=== PATIENT | female | born 1975 | race Caucasian/White ===

== ENCOUNTER 2017-12-15 13:04 | Emergency (ER) | payer OTHER, SELFPAY ==
[2017-12-15 13:06] VITALS: BP 134/81; PULSE 93; RESP 16; TEMP 36.9; O2SAT 95; BMI 43.8
--- NOTE | 2017-12-15 13:21 | RAD_ITS ---
STUDY: X-RAY CHEST REASON FOR EXAM: Female, 42 years old. Chest pain. Shortness of breath. TECHNIQUE: PA and lateral views of the chest. COMPARISON: Comparison is made with prior study dated September 19, 2017. FINDINGS: EKG electrodes are seen. Stable elevation of the right hemidiaphragm. Mild increased markings in the right middle lobe suggestive of mild right basilar atelectasis. There is no demonstrated pleural abnormality. Normal size heart. Normal mediastinum and jessi. Normal visualized pulmonary arteries. Normal visualized aortic arch and descending thoracic aorta. Normal visualized thoracic spine. Normal visualized ribs, clavicles, and shoulders. There is no demonstrated abnormality of the visualized soft tissue structures of the upper abdomen. RAD/Chest PA and Lateral IMPRESSION: Increased linear markings in the right middle lobe suggestive of right basilar atelectasis. Electronically Signed: Santhosh Morse MD at 14:26 EST Tel [phone], Service support ,
--- NOTE | 2017-12-15 13:21 | EKG12_ITS ---
Test Reason : CP Blood Pressure : / mmHG Vent. Rate : 084 BPM Atrial Rate : 084 BPM P-R Int : 144 ms QRS Dur : 074 ms QT Int : 384 ms P-R-T Axes : 018 052 042 degrees QTc Int : 453 ms Normal sinus rhythm Normal ECG Confirmed by RINKU SYLVESTER MD ([id number]), editor dictionary GERSON CRUZ ([id number]) on 12/21/2017 3:47:29 PM Referred By: CELSO Confirmed By:RINKU SYLVESTER MD
[2017-12-15 13:40] LABS: Mucous, Urine 0 SEEN /hpf (<or=2+); Red Blood Cells-Urine 0 SEEN /hpf (0-5); White Blood Cells 0 SEEN /hpf (0-5)
[2017-12-15 13:42] LABS: Color, Urine Yellow (Yellow); Glucose, Dipstick Normal (Normal); Ketone-Dipstick Negative (Negative); Leukocyte Esterase-Dipstick Negative /ul (Negative); Nitrite-Dipstick Negative (Negative); Occult Blood-Urine Negative /ul (Negative); Protein-Dipstick Negative (Negative); Urine Bilirubin Dipstick Negative (Negative); Urine Clarity Clear (Clear); Urine Urobilinogen Normal (Normal)
[2017-12-15 13:47] LABS: Absolute Lymphocyte Count 1.83 X10^3/ul (0.83-4.51); Basophil# 0.02 X10^3/uL; Basophil% 0.3 % (0-1); Eosinophil# 0.16 X10^3/uL; Eosinophils% 2.5 % (0-5); Hematocrit 38.3 % (37-47); Hemoglobin 13.2 g/dl (12.0-15.0); Lymphocyte # 1.83 X10^3/ul (4.0); Lymphocyte % 28.8 % (19-41); Mean Corp Hgb Conc 34.5 g/gl (32-36); Mean Corpuscular Volume 89.9 fL (81-99); Mean Platelet Vol. 10.6 fl (6.2-12.0); Monocyte# 0.36 X10^3/uL; Monocyte% 5.7 % (0-10); Neutrophil # 3.99 X10^3/uL (2.7-7.7); Neutrophil % 62.7 % (47-70); Platelet Count 183 K/mm3 (150-450); RBC Distribution Width CV 11.9 % (11.6-14.6); RBC Distribution Width SD 37.9 fl (35.1-43.9); Red Blood Count 4.26 M/mm3 (4.2-5.4); White Blood Count 6.4 K/mm3 (4.4-11.0)
[2017-12-15 13:48] LABS: POSITIVE COUNT NO; POSITIVE DIFFERENTIAL NO; POSITIVE MORPHOLOGY NO
[2017-12-15 13:52] LABS: Bacteria RARE /hpf (None Seen); Squamous Epithelial Cells - UA 0-5 SEEN /hpf (5-10)
[2017-12-15 14:05] VITALS: PULSE 84; RESP 18; O2SAT 94
[2017-12-15 14:06] LABS: Anion Gap 8 (5-15); BUN 14 mg/dL (7-18); BUN/Creat Ratio 16.5 RATIO (10-20); Calcium,Total 8.7 mg/dL (8.5-10.1); Chloride 106 mmol/L (98-107); Creatinine, Serum 0.85 mg/dL (0.55-1.02); EST Glomerular Filtration Rate 78 mL/min (>60); Est Glom Filt Rate - Afr Amer 95 mL/min (>60); Estimated Creatinine Clearance 75.97 ml/min; Glucose 116 mg/dL (74-106); Potassium 3.7 mmol/L (3.5-5.1); Sodium Level 140 mmol/L (136-145)
[2017-12-15 14:08] VITALS: O2SAT 94
[2017-12-15 14:13] LABS: BNP,B-Type NATRIURETIC PEPTIDE 12.4 pg/mL (0-100)
[2017-12-15 14:15] LABS: D-Dimer Quantitative (DVT/PE) 0.67 FEU/ug/m (0.27-0.49)
--- NOTE | 2017-12-15 14:18 | CT_ITS ---
STUDY: CTA CHEST REASON FOR EXAM: Female, 42 years old. Shortness of breath. 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 RADIATION DOSAGE (If Supplied By Facility): CTDIvol = ( 15.06 ) mGy, DLP = ( 760.22 ) mGycm TECHNIQUE: The examination was performed with the intravenous administration of 100 ml of Isovue 370 contrast material. Post-processing of the angiographic images was performed, with multiplanar reformation and 3D reconstruction. Individualized dose optimization techniques were used for this CT. COMPARISON: None. FINDINGS: Normal enhancement of the main pulmonary artery and right and left pulmonary arteries. Normal enhancement of the bilateral peripheral pulmonary arteries. There is no demonstrated pulmonary embolism. Normal thoracic aorta and visualized great vessels. There is no demonstrated aortic dissection. Normal heart and pericardium. Normal mediastinum. Normal hilar regions. Normal visualized trachea and bronchi. The lungs are well expanded. Mild increased markings in the anterior aspect of the right middle lobe suggestive of a right middle lobe atelectasis. Normal pleura. Normal chest wall structures. Normal osseous structures. Normal visualized upper abdomen. CT/CTA Chest W/WO Contrast IMPRESSION: Mild increased markings in the anterior aspect of the right middle lobe as described suggesting atelectasis. No evidence of pulmonary emboli. Electronically Signed: Santhosh Morse MD at 15:33 EST Tel [phone], Service support ,
[2017-12-15] MEDS: Ipratropium/Albuterol Sulfate 3 ML AMPUL.NEB INHALATION (16:05)
[2017-12-15 16:06] VITALS: PULSE 74; RESP 13
[2017-12-15] MEDS: Ondansetron 4 MG/2 ML Vial IV (16:12)
[2017-12-15 16:34] VITALS: PULSE 79; RESP 17; O2SAT 96
--- NOTE | 2017-12-15 16:50 | ED.VISSUMM ---
- ER Visit Summary Date of Service: 12/15/17 Chief Complaint: Shortness of breath History of Present Illness: The patient is a 42 F with generalized malaise over the weekend. Yesterday she noted dyspnea on exertion and some mild chest tightness. She feels that her hands are swollen and she is retaining fluid. She also has some low back pain. Patient has a history significant for cardiomyopathy, reflux disease, PE, factor V Leiden, and [place]. Patient states she did have a cardiac cath but does not have any stents. She is not currently on anticoagulants. Physical Examination: Blood pressure is 134/81, temperature 98.5, heart rate 93, respiratory rate 16, pulse ox 95% on room air. Head neck examination is unremarkable. Heart is regular rate and rhythm. Lung sounds are clear. Abdomen is soft nontender. Lower external examination reveals no significant calf tenderness. Distal pulses are noted throughout. Test Results: Two-view chest x-ray reveals right basilar atelectasis. EKG is sinus at 84 with no sign of acute ischemia. CBC and chemistry studies are unremarkable. Urinalysis is normal. Troponin is less than 0.02. BNP is 12. D-dimer is mildly elevated at 0.67. CTA of the chest is obtained that shows atelectasis in the right middle lobe. There is no evidence of PE. Emergency Department Course and Treatment: Patient was given morphine and Zofran. She is also given a DuoNeb. Patient states that overall she still just feels blah. I believe her symptoms are secondary to a viral syndrome. I encouraged her to use Tylenol or ibuprofen. At this time her cardiac and pulmonary workup are negative and I do not believe she needs to be admitted for further evaluation this currently. Treatment Plan: [] Disposition: Discharge Impression: Viral syndrome This note was generated with [employer] dictation software. It may contain incorrect words, spelling, and punctuation that were not noted in review of the chart prior to signing ED Disposition - Plan for ED Patient: Disposition: Home or Assisted Living Chief Complaint: Shortness of Breath Instructions: ED Viral Syndrome Prescriptions: Ondansetron [Zofran Odt] 4 mg PO Q8H PRN PRN #10 tablet PRN Reason: Nausea Referrals: Horace Paniagua III, MD [Primary Care Provider] - 1-2 Weeks
--- NOTE | 2017-12-15 17:00 | ED.DEP ---
ED Disposition - Plan for ED Patient: Disposition: Home or Assisted Living Chief Complaint: Shortness of Breath Instructions: ED Viral Syndrome Prescriptions: Ondansetron [Zofran Odt] 4 mg PO Q8H PRN PRN #10 tablet PRN Reason: Nausea Referrals: Horace Paniagua III, MD [Primary Care Provider] - 1-2 Weeks
[2017-12-15 17:02] VITALS: BP 130/66; PULSE 81; RESP 19; O2SAT 93
[2017-12-15] MEDS: Ondansetron ODT 4 MG Tablet 8 MG PO (17:06)
== END 2017-12-15 17:07 | disposition home or self-care (01) ==
PROVIDERS: Emergency Provider Emergency Medicine; Family Provider Family Medicine; PCP Family Medicine
DX: B34.9 Viral infection, unspecified (principal); J98.11 Atelectasis; E66.9 Obesity, unspecified; K21.9 Gastro-esophageal reflux disease without esophagitis; I25.2 Old myocardial infarction; D68.51 Activated protein C resistance; Z87.891 Personal history of nicotine dependence; Z86.711 Personal history of pulmonary embolism
CPT/HCPCS: 71046; 71275; 80048; 81001; 83880; 84484; 85025; 85379; 93005; 94640; 96374; 96375; 99285; Q9967; J2405

== ENCOUNTER 2017-12-15 22:35 | Emergency (ER) | payer OTHER, SELFPAY ==
[2017-12-15 22:36] VITALS: BP 125/59; PULSE 94; RESP 15; TEMP 36.7; O2SAT 95; BMI 43.6
[2017-12-15 23:37] LABS: Bacteria 0 SEEN /hpf (None Seen); Mucous, Urine 0 SEEN /hpf (<or=2+); Red Blood Cells-Urine 0 SEEN /hpf (0-5); White Blood Cells 0 SEEN /hpf (0-5)
[2017-12-15 23:48] LABS: Color, Urine Yellow (Yellow); Glucose, Dipstick Normal (Normal); Ketone-Dipstick Negative (Negative); Leukocyte Esterase-Dipstick Negative /ul (Negative); Nitrite-Dipstick Negative (Negative); Occult Blood-Urine Negative /ul (Negative); Protein-Dipstick Negative (Negative); Urine Bilirubin Dipstick Negative (Negative); Urine Clarity Clear (Clear); Urine Urobilinogen Normal (Normal)
[2017-12-15 23:54] LABS: Squamous Epithelial Cells - UA 0-5 SEEN /hpf (5-10)
--- NOTE | 2017-12-15 23:58 | ED.VISSUMM ---
- ER Visit Summary Date of Service: 12/15/17 Chief Complaint: Right lower back pain near posterior iliac spine History of Present Illness: The patient is a 42 F who was seen earlier today and had a significant workup to evaluate her constellation of symptoms which included shortness of breath. She states she is no better. She states she is worse and now has right lower back pain. She does have history of nephrolithiasis one year ago. She denies any history of trauma. She denies rash. She denies bowel or bladder dysfunction. She denies saddle paresthesia or anesthesia. She denies foot drop when she walks. Denies thigh muscle weakness when he was up or down steps. She denies fever, chills night sweats. Denies weight gain or weight loss. She denies any ocular, visual auditory symptoms. She does complain of palpitations. She also complains of continued shortness of breath. She denies any abdominal pain or symptoms. She denies dysuria, frequency, urgency or hematuria. She denies myalgias or arthralgias. She denies paresthesia or weakness. She denies any allergic type symptoms. There is a past medical history of cardiomyopathy, pericarditis, nephrolithiasis, GERD and depression. Her dictated note from visit earlier today was read. She had a significant workup with no determined etiology. The kidneys are visualized and there is no evidence of hydronephrosis. Physical Examination: Vital signs are normal. She is afebrile. She is not hypoxic. BMI is 43.6. HEENT exam is unremarkable. Insert cardiopulmonary exam abdomen is soft nontender. There is no CVA tenderness noted. There is no pain to palpation of the dorsal or lumbar spinous process. Straight leg test is negative. Crossover test is negative. Patella and ankle reflexes are 2+ and symmetric. There is no clonus or Babinski sign noted. Sensation is intact. Motor strength is 5/5 in all major muscle groups lower extremity. Test Results: UA is negative Emergency Department Course and Treatment: Since she now has new symptom of low back pain and his history of nephrolithiasis a urinalysis was obtained. Prior documentation was reviewed as well as tests that were ordered. Treatment Plan: Home-going instructions for muscle skeletal low back pain without sciatica Disposition: Discharged to home in stable condition Impression: 1. Right lower back pain without sciatica 2. Persistent shortness of breath of unknown etiology 3. History of cardiomyopathy This note was generated with [employer] dictation software. It may contain incorrect words, spelling, and punctuation that were not noted in review of the chart prior to signing ED Disposition - Plan for ED Patient: Disposition: Home or Assisted Living Chief Complaint: General Illness Instructions: ED Neck Back Pain General Referrals: Horace Paniagua III, MD [Primary Care Provider] - 3-5 Days if not improving
[2017-12-16 00:17] VITALS: PULSE 76; RESP 16; O2SAT 98
== END 2017-12-16 00:18 | disposition home or self-care (01) ==
PROVIDERS: Emergency Provider Emergency Medicine; Family Provider Family Medicine; PCP Family Medicine
DX: M54.5 Low back pain (principal); R06.02 Shortness of breath; R00.2 Palpitations; E66.9 Obesity, unspecified; Z68.41 Body mass index [BMI] 40.0-44.9, adult; Z87.891 Personal history of nicotine dependence; Z87.442 Personal history of urinary calculi; F32.9 Major depressive disorder, single episode, unspecified
CPT/HCPCS: 81001; 99282

== ENCOUNTER → 2018-01-24 14:38 | Outpatient (CLI) | payer OTHER, SELFPAY ==
--- NOTE | 2018-01-24 14:39 | US_ITS ---
STUDY: ULTRASOUND TRANSVAGINAL CLINICAL: Female, 42 years old. Pelvic pain. Previous hysterectomy. TECHNIQUE: Transabdominal and Transvaginal COMPARISON: None. FINDINGS: Uterus is surgically absent. Normal right ovary, measuring 4.2 x 3.1 x 2.8 cm. There is a 2.6 cm right ovarian cyst. Normal left ovary, measuring 3.6 x 1.5 x 2.6 cm. There are multiple follicles without a dominant cyst. There is no free fluid in the pelvis. Polycystic ovary disease: No. US/Pelvic (Non ) IMPRESSION: Status post hysterectomy. 2.6 cm right ovarian cyst. Otherwise negative exam. Electronically Signed: Floyd Moncada MD at 22:58 EDT , Service support ,
--- NOTE | 2018-01-24 14:39 | US_ITS ---
STUDY: ULTRASOUND TRANSVAGINAL CLINICAL: Female, 42 years old. Pelvic pain. Previous hysterectomy. TECHNIQUE: Transabdominal and Transvaginal COMPARISON: None. FINDINGS: Uterus is surgically absent. Normal right ovary, measuring 4.2 x 3.1 x 2.8 cm. There is a 2.6 cm right ovarian cyst. Normal left ovary, measuring 3.6 x 1.5 x 2.6 cm. There are multiple follicles without a dominant cyst. There is no free fluid in the pelvis. Polycystic ovary disease: No. US/Transvaginal Non- IMPRESSION: Status post hysterectomy. 2.6 cm right ovarian cyst. Otherwise negative exam. Electronically Signed: Floyd Moncada MD at 22:58 EDT , Service support ,
== END ==
PROVIDERS: Family Provider Family Medicine; PCP Family Medicine; Visit Provider Nurse Practitioner Women's Health
DX: R10.2 Pelvic and perineal pain (principal); Z90.710 Acquired absence of both cervix and uterus
CPT/HCPCS: 76830; 76856; 93976

== ENCOUNTER → 2018-02-09 14:30 | Outpatient (CLI) | payer OTHER, SELFPAY ==
[2018-02-09 16:35] LABS: Prolactin 10.3 ng/mL; Thyroid Stim Hormone (TSH) 1.08 uIU/mL (0.358-3.74)
== END ==
PROVIDERS: Family Provider Family Medicine; PCP Family Medicine; Visit Provider Nurse Practitioner Women's Health
DX: R63.5 Abnormal weight gain (principal); O92.6 Galactorrhea
CPT/HCPCS: 36415; 84146; 84443

== ENCOUNTER 2018-05-28 13:30 | Emergency (ER) | payer OTHER, SELFPAY ==
[2018-05-28 13:31] VITALS: BP 131/72; PULSE 104; RESP 18; TEMP 36.6; O2SAT 96; BMI 42.9
--- NOTE | 2018-05-28 13:48 | ED.VISSUMM ---
- ER Visit Summary Date of Service: 05/28/18 Chief Complaint: Right arm pain History of Present Illness: The patient is a 43 F with right arm pain. It started 2 days ago. She has pain over the lateral part of her upper arm. She denies any injury or trauma to the area. She describes as an aching. She has also some mild pain in the neck. She has some mild swelling that she describes. Tylenol and ibuprofen are not helping. She has a history of factor V Leiden and PE but is not any anticoagulation at this time. Physical Examination: Vital signs reviewed. Neck exam reveals some mild right paraspinal tenderness. The right arm is tender diffusely from the shoulder down to the forearm. There is no swelling. It is warm to touch. She has 2+ radial pulses. Less than 2-second capillary refill. Her sensation is normal. Test Results: None performed Emergency Department Course and Treatment: Patient likely has a cervical radiculopathy. I have very low suspicion for an upper extremity DVT as she has no swelling. She has no tenderness on the inner part of the arm. I will treat her with prednisone and naproxen at home. She will follow-up with her PCP. Treatment Plan: [] Disposition: Discharge Impression: Cervical radiculopathy This note was generated with [employer] dictation software. It may contain incorrect words, spelling, and punctuation that were not noted in review of the chart prior to signing ED Disposition - Plan for ED Patient: Chief Complaint: Upper Extremity Injury Referrals: Horace Paniagua III, MD [Primary Care Provider] -
--- NOTE | 2018-05-28 13:50 | ED.DEP ---
ED Disposition - Plan for ED Patient: Disposition: Home or Assisted Living Chief Complaint: Upper Extremity Injury Instructions: ED Cervical Radiculopathy Prescriptions: Naproxen [Naprosyn] 500 mg PO BID PRN #20 tab Prednisone [Deltasone] 40 mg PO DAILY #10 tab Referrals: Horace Paniagua III, MD [Primary Care Provider] -
== END 2018-05-28 14:40 | disposition home or self-care (01) ==
PROVIDERS: Emergency Provider Emergency Medicine; Family Provider Family Medicine; PCP Family Medicine
DX: M54.12 Radiculopathy, cervical region (principal); D68.51 Activated protein C resistance; Z86.711 Personal history of pulmonary embolism; I10 Essential (primary) hypertension
CPT/HCPCS: 99282

== ENCOUNTER 2018-06-28 18:27 | Emergency (ER) | payer OTHER, SELFPAY ==
[2018-06-28 18:28] VITALS: BP 132/100; PULSE 88; RESP 16; TEMP 36.9; O2SAT 98; BMI 45.2
--- NOTE | 2018-06-28 19:17 | ED.VISSUMM ---
- ER Visit Summary Date of Service: 06/28/18 Chief Complaint: Heartburn/dizziness History of Present Illness: The patient is a 43 F with heartburn. She states for the past 2 weeks she has been having a lot of heartburn. Worse at night when she lays down. She feels a weird taste in the back of her throat. She has been on daily Prilosec for many years. She tried Pepto-Bismol but it did not help. She feels bloated and nauseous. Denies any sharp abdominal pains. She also feels dizzy. She has a history of vertigo and this feels similar. She has not taken anything for this. Denies any falls. No fevers or any other recent illnesses. Physical Examination: Vital signs reviewed. HEENT exam unremarkable. Heart is regular rate and rhythm without murmurs. Lungs are clear to auscultation. Abdomen is soft with tenderness in the epigastric region extremities reveal no edema. Skin exam normal. Neurologic exam normal. Test Results: Labs are normal except for glucose of 129 Emergency Department Course and Treatment: I initially treated the patient with a GI cocktail and meclizine. She did not feel better so she was given p.o. Valium IV Phenergan. At this point I feel that her symptoms are likely due to GERD as well as her vertigo which she has had previously. I will give her some Valium for home. I will also add Carafate to her Prilosec. She will follow-up with her primary care physician Treatment Plan: [] Disposition: Discharge Impression: GERD, vertigo This note was generated with [employer] dictation software. It may contain incorrect words, spelling, and punctuation that were not noted in review of the chart prior to signing ED Disposition - Plan for ED Patient: Disposition: Home or Assisted Living Chief Complaint: Dizziness Instructions: ED BPV Vertigo Prescriptions: proMETHazine tablet [Phenergan] 25 mg PO Q6H PRN PRN #10 tab PRN Reason: Nausea Diazepam [Valium] 2 mg PO TID PRN PRN #10 tab PRN Reason: Vertigo Sucralfate [Carafate] 1 gm PO 4X/DAY #60 tab Referrals: Horace Paniagua III, MD [Primary Care Provider] -
[2018-06-28] MEDS: Meclizine HCl 25 MG Tablet PO (19:18)
[2018-06-28] MEDS: Mag Hydrox/Al Hydrox/Simeth 30 ML UDC PO (19:18)
[2018-06-28] MEDS: Ondansetron ODT 4 MG Tablet 8 MG PO (19:46)
[2018-06-28 20:31] LABS: Absolute Neutrophil Count 3.7 X10^3/uL (2.0-7.7); Basophil# 0.02 X10^3/uL; Basophil% 0.3 % (0-1); Eosinophil# 0.14 X10^3/uL; Eosinophils% 2.2 % (0-5); Hematocrit 40.7 % (37-47); Hemoglobin 13.8 g/dl (12.0-15.0); Lymphocyte % 33.4 % (19-41); Mean Corp Hgb Conc 33.9 g/gl (32-36); Mean Corpuscular Hgb 31.2 pg (27.0-32.0); Mean Corpuscular Volume 92.1 fL (81-99); Mean Platelet Vol. 10.3 fl (6.2-12.0); Monocyte# 0.35 X10^3/uL; Monocyte% 5.6 % (0-10); Neutrophil # 3.67 X10^3/uL (2.7-7.7); Neutrophil % 58.3 % (47-70); POSITIVE COUNT NO; POSITIVE DIFFERENTIAL NO; POSITIVE MORPHOLOGY NO; Platelet Count 180 K/mm3 (150-450); RBC Distribution Width CV 12.2 % (11.6-14.6); RBC Distribution Width SD 41.3 fl (35.1-43.9); Red Blood Count 4.42 M/mm3 (4.2-5.4); White Blood Count 6.3 K/mm3 (4.4-11.0)
[2018-06-28 20:59] LABS: ALB/GLOB Ratio 0.8 RATIO (0.9-2.4); AST(SGOT) 21 U/L (15-37); Alanine Aminotransfer ALT/SGPT 40 U/L (13-56); Albumin, Serum 3.1 g/dL (3.2-5.0); Alkaline Phosphatase 57 U/L (45-117); Anion Gap 7 (5-15); BUN 10 mg/dL (7-18); BUN/Creat Ratio 11.9 RATIO (10-20); Calcium,Total 8.7 mg/dL (8.5-10.1); Chloride 105 mmol/L (98-107); Creatinine, Serum 0.84 mg/dL (0.55-1.02); EST Glomerular Filtration Rate 79 mL/min (>60); Est Glom Filt Rate - Afr Amer 96 mL/min (>60); Estimated Creatinine Clearance 76.11 ml/min; Globulin 3.8 g/dL (2.2-4.2); Glucose 129 mg/dL (74-106); Lipase 323 U/L (73-393); Potassium 4.1 mmol/L (3.5-5.1); Protein, Total 6.9 g/dL (6.4-8.2); Sodium Level 139 mmol/L (136-145)
--- NOTE | 2018-06-28 21:02 | ED.RN ---
DR PERALTA NOTIFIED PT REQUESTING SOMETHING FOR NAUSEA
[2018-06-28] MEDS: 0.9% Normal Saline 1,000 ML 999 ML IV (21:11)
[2018-06-28] MEDS: proMETHazine 25 MG/ML Syringe 12.5 MG IV (21:12)
[2018-06-28] MEDS: diazePAM 5 MG Tablet PO (21:12)
--- NOTE | 2018-06-28 21:22 | ED.DEP ---
ED Disposition - Plan for ED Patient: Disposition: Home or Assisted Living Chief Complaint: Dizziness Instructions: ED BPV Vertigo Prescriptions: proMETHazine tablet [Phenergan] 25 mg PO Q6H PRN PRN #10 tab PRN Reason: Nausea Diazepam [Valium] 2 mg PO TID PRN PRN #10 tab PRN Reason: Vertigo Sucralfate [Carafate] 1 gm PO 4X/DAY #60 tab Referrals: Horace Paniagua III, MD [Primary Care Provider] -
[2018-06-28 22:02] VITALS: BP 114/79; PULSE 83; RESP 16; O2SAT 96
== END 2018-06-28 22:03 | disposition home or self-care (01) ==
PROVIDERS: Emergency Provider Emergency Medicine; Family Provider Family Medicine; PCP Family Medicine
DX: K21.9 Gastro-esophageal reflux disease without esophagitis (principal); R42 Dizziness and giddiness
CPT/HCPCS: 80053; 83690; 85025; 96361; 96374; 99284; J7030; A4216

== ENCOUNTER 2018-07-18 20:19 | Emergency (ER) | payer OTHER, SELFPAY ==
[2018-07-18 20:20] VITALS: BP 153/92; PULSE 97; RESP 14; TEMP 36.4; O2SAT 98; BMI 45.9
--- NOTE | 2018-07-18 20:25 | EKG12_ITS ---
Test Reason : DIZZINESS Blood Pressure : / mmHG Vent. Rate : 086 BPM Atrial Rate : 086 BPM P-R Int : 138 ms QRS Dur : 072 ms QT Int : 378 ms P-R-T Axes : 027 057 056 degrees QTc Int : 452 ms Normal sinus rhythm Normal ECG Confirmed by HIGINIO ROCHA, RINKU ([id number]), scientific editor GERSON CRUZ ([id number]) on 07/25/2018 3:39:07 PM Referred By: DESIRE Confirmed By:RINKU SYLVESTER MD
[2018-07-18 20:39] VITALS: O2SAT 97
[2018-07-18 20:56] LABS: Absolute Lymphocyte Count 2.02 X10^3/ul (0.83-4.51); Absolute Neutrophil Count 3.5 X10^3/uL (2.0-7.7); Basophil# 0.02 X10^3/uL; Basophil% 0.3 % (0-1); Eosinophil# 0.15 X10^3/uL; Eosinophils% 2.5 % (0-5); Hematocrit 38.9 % (37-47); Hemoglobin 13.2 g/dl (12.0-15.0); Lymphocyte # 2.02 X10^3/ul (4.0); Lymphocyte % 33.6 % (19-41); Mean Corp Hgb Conc 33.9 g/gl (32-36); Mean Corpuscular Hgb 31.1 pg (27.0-32.0); Mean Corpuscular Volume 91.5 fL (81-99); Mean Platelet Vol. 10.5 fl (6.2-12.0); Monocyte# 0.33 X10^3/uL; Monocyte% 5.5 % (0-10); Neutrophil # 3.48 X10^3/uL (2.7-7.7); Neutrophil % 57.9 % (47-70); POSITIVE COUNT NO; POSITIVE DIFFERENTIAL NO; POSITIVE MORPHOLOGY NO; Platelet Count 183 K/mm3 (150-450); RBC Distribution Width CV 12.2 % (11.6-14.6); RBC Distribution Width SD 40.6 fl (35.1-43.9); Red Blood Count 4.25 M/mm3 (4.2-5.4)
[2018-07-18 21:03] LABS: International Normalized Ratio 0.8; Prothrombin Time (Protime)PT. 11.4 SECONDS (11.7-14.9)
[2018-07-18 21:04] LABS: Partial Thromboplast Time 22.5 Seconds (24.1-36.2)
[2018-07-18] MEDS: 0.9% Normal Saline 1,000 ML 50 ML IV (21:04)
[2018-07-18 21:09] LABS: Anion Gap 7 (5-15); BUN 11 mg/dL (7-18); BUN/Creat Ratio 13.2 RATIO (10-20); Calcium,Total 8.9 mg/dL (8.5-10.1); Chloride 102 mmol/L (98-107); Creatinine, Serum 0.83 mg/dL (0.55-1.02); EST Glomerular Filtration Rate 80 mL/min (>60); Est Glom Filt Rate - Afr Amer 97 mL/min (>60); Estimated Creatinine Clearance 77.02 ml/min; Glucose 150 mg/dL (74-106); Potassium 3.9 mmol/L (3.5-5.1); Sodium Level 140 mmol/L (136-145)
--- NOTE | 2018-07-18 21:11 | RAD_ITS ---
STUDY: X-RAY CHEST REASON FOR EXAM: Female, 43 years old. Dizzy, heartburn. TECHNIQUE: PA and lateral views of the chest. COMPARISON: The very 06/06/2018 FINDINGS: The lungs are clear and expanded. There is no demonstrated pleural abnormality. Normal size heart. Normal mediastinum and jessi. Normal visualized pulmonary arteries. Normal visualized aortic arch and descending thoracic aorta. Normal visualized thoracic spine. Normal visualized ribs, clavicles, and shoulders. There is no demonstrated abnormality of the visualized soft tissue structures of the upper abdomen. RAD/Chest PA and Lateral IMPRESSION: No acute cardiopulmonary process. Electronically Signed: Camryn Grey MD at 21:28 EDT Tel , Service support ,
--- NOTE | 2018-07-18 21:40 | CT_ITS ---
STUDY: CT BRAIN WITHOUT CONTRAST REASON FOR EXAM: Female, 43 years old. Dizziness. RADIATION DOSAGE (If Supplied By Facility): CTDIvol = ( 44.99 ) mGy, DLP = ( 745.49 ) mGycm TECHNIQUE: Transaxial CT imaging of the brain was performed without administration of intravenous contrast material. Individualized dose optimization techniques were used for this CT. COMPARISON: September 19, 2017 FINDINGS: Normal soft tissue structures. Normal calvarium. Normal size ventricles and extra-axial spaces for the patient's age. Normal white matter tracts of the cerebral hemispheres. Normal basal ganglia and thalami. Normal brainstem. Normal cerebellum. There is no intracranial hemorrhage. There are no findings of an acute ischemic infarction. There is opacification of the ethmoid, sphenoid and visualized maxillary sinuses. CT/Brain/Head without Contrast IMPRESSION: No acute intracranial process. Opacification of the ethmoid, sphenoid and visualized maxillary sinuses consistent with a history of sinusitis. Electronically Signed: Camryn Grey MD at 22:05 EDT Tel , Service support ,
[2018-07-18] MEDS: 0.9% Normal Saline 1,000 ML 150 ML IV (21:59)
[2018-07-18] MEDS: Ketorolac 30 MG/ML Syringe IV (21:59)
[2018-07-18] MEDS: Ondansetron 4 MG/2 ML Vial IV ×2 (21:59→23:05)
[2018-07-18 22:33] VITALS: PULSE 87; RESP 17; O2SAT 95
[2018-07-18] MEDS: Morphine 4 MG/ML Syringe IV (23:05)
--- NOTE | 2018-07-18 23:09 | ED.VISSUMM ---
- ER Visit Summary Date of Service: 07/18/18 Chief Complaint: Dizzy, vertigo History of Present Illness: The patient is a 43 F with vertigo for the past 8 days. She has had vertigo in the past. She was seen by her PCP and is currently on Antivert 12.5 mg every 6 hours without improvement. Patient noted ringing in her ear that started 3 days ago. She also complaining of a headache which she describes as head pressure. She also reports recent GI issues. She reports nausea, diarrhea, and occasional vomiting. She is scheduled to see Dr. Stark tomorrow to schedule scopes to deal with this. Physical Examination: Blood pressure is 153/92, temperature 97.6, heart rate 97, respiratory rate 14, pulse ox 97% on room air. Patient is lying in a darkened room in no acute distress. Head neck examination reveals moist mucous membranes. No significant rhinorrhea. Heart is regular rate and rhythm. Lung sounds are clear. Abdomen is soft nontender. Neuro exam reveals no focal deficits. Test Results: EKG is sinus 86 with no sign of acute ischemia. CBC and chemistry studies significant only for glucose of 150. Coags normal. CT head shows no acute process. There is opacification of the ethmoid, sphenoid, and maxillary sinuses consistent with sinusitis. Emergency Department Course and Treatment: Patient was initially given Toradol, Zofran, and IV fluids followed by dose of morphine and Zofran. Test results were discussed with patient and family at bedside. I discussed the possibility of M?ni?re's disease as she now has the significant ringing in her left ear. I recommended follow-up with ENT for this and have given her a handout on M?ni?re's disease to review. She will be placed on doxycycline for sinusitis as this may be playing a role in her symptoms as well. I did also discuss with her increasing her dose of Antivert at home to 25-50 mg rather than a 12.5 that she is taking to see if she gets better improvement in her symptoms. She voices understanding and agreement. She is given first dose of doxycycline here and a prescription for the same. She is given ENT referral for follow-up. Treatment Plan: [] Disposition: Discharge Impression: 1. Sinusitis 2. Vertigo with concern for M?ni?re's disease This note was generated with Dragon dictation software. It may contain incorrect words, spelling, and punctuation that were not noted in review of the chart prior to signing ED Disposition - Plan for ED Patient: Disposition: Home or Assisted Living Chief Complaint: Dizziness Instructions: ED Sinusitis Abx Tx, ED Vertigo Unspecified Prescriptions: Doxycycline 100 mg PO BID #20 capsule Referrals: Jean Marie Palafox MD [STAFF PHYSICIAN] - Horace Paniagua III, MD [Primary Care Provider] - Jose Salmeron MD [STAFF PHYSICIAN] -
--- NOTE | 2018-07-18 23:17 | ED.DEP ---
ED Disposition - Plan for ED Patient: Disposition: Home or Assisted Living Chief Complaint: Dizziness Instructions: ED Vertigo Unspecified, ED Sinusitis Abx Tx Prescriptions: Doxycycline 100 mg PO BID #20 capsule Referrals: Jose Salmeron MD [STAFF PHYSICIAN] - Jean Marie Palafox MD [STAFF PHYSICIAN] - Horace Paniagua III, MD [Primary Care Provider] -
[2018-07-18 23:20] VITALS: BP 144/75; PULSE 85; RESP 17; O2SAT 99
[2018-07-18] MEDS: Doxycycline 100 MG CAPSULE PO (23:22)
== END 2018-07-18 23:26 | disposition home or self-care (01) ==
PROVIDERS: Emergency Provider Emergency Medicine; Family Provider Family Medicine; PCP Family Medicine
DX: J32.9 Chronic sinusitis, unspecified (principal); R42 Dizziness and giddiness; R51 Headache; R11.2 Nausea with vomiting, unspecified; R19.7 Diarrhea, unspecified; K21.9 Gastro-esophageal reflux disease without esophagitis; J45.909 Unspecified asthma, uncomplicated; I10 Essential (primary) hypertension; G47.33 Obstructive sleep apnea (adult) (pediatric); I25.2 Old myocardial infarction; Z87.891 Personal history of nicotine dependence
CPT/HCPCS: 70450; 71046; 80048; 85025; 85610; 85730; 93005; 96361; 96374; 96375; 96376; 99285; J7040; A4216; J2405

== ENCOUNTER 2018-08-04 11:16 | Day surgery (SDC) | payer OTHER, SELFPAY ==
--- NOTE | 2018-08-04 | GASB_PTH ---
PATIENT: CHASTITY NUNEZ LOC: EN U#:[id number] AGE/SX: 43/F ROOM: RE08/04/[address]: Dr. Demarco Paniagua MD : [id number] BED: DIS: 08/04/2018 SPEC #: [id number] RECD: 08/04/18 14:43 STATUS: LEYLA PEGGY #: [id number] SHYAM: 08/04/18 00:[address]: Demarco Paniagua DEPT: SURGICAL PATHOLOGY RECD BY: Eladio Cornell ENTERED: 08/04/18 14:43 SP TYPE: Gastric Bx OTHR DR: Dr. Horace Paniagua III, MD Tissues: A - Gastric mucous membrane B - Esophageal mucous membrane C - Esophageal mucous membrane D - COLON BIOPSY E - Rectum, NOS Procedures: Special Stain Group II Surgery Specimen Level IV Alcian Blue/PAS (control) HEADER OPERATION: Colonoscopy, [place] [place] DIAGNOSIS: Gastroesophageal reflux, diarrhea, periumbilical abdominal pain TISSUE SUBMITTED: A - Antrum biopsy for H. pylori and path, B - Distal esophageal biopsy, C - Mid esophagus biopsy, D - Random colon biopsies, E - Biopsy of proximal rectum polyp MICROSCOPIC DIAGNOSIS A. Antrum biopsy: Mild gastritis. See microscopic description and comment. B. Distal esophageal biopsy: Fragments of gastroesophageal mucosa with chronic inflammation. Intestinal metaplasia (goblet cell metaplasia) is not identified. See comment. C. Mid esophagus, biopsy: Fragments of squamous epithelium with mild chronic inflammation. D. Colon, random biopsy: Fragments of colonic mucosa, no pathologic diagnosis. E. Proximal rectum polyp, biopsy: Fragments of hyperplastic polyp. SJ:tory 08/05/18 COMMENT A. The results of immunohistochemistry for Helicobacter pylori will be reported separately ([id number]). B. Alcian blue/PAS stain with matched control is used in the evaluation of the specimen. MICROSCOPIC DESCRIPTION Slides are reviewed. A. The specimen shows fragments of gastric mucosa with chronic inflammatory cell infiltrates in the lamina propria consisting of lymphocytes and plasma cells, consistent with mild chronic gastritis. GROSS DESCRIPTION A - Received in fixative is one container labeled with the patient's name and designated antral biopsy. The specimen consists of one irregular fragment of light moore soft tissue that measures 0.5 x 0.2 x 0.1 cm. The specimen is totally submitted in one cassette. B - Received in fixative is one container labeled with the patient's name and designated distal esophagus biopsy. The specimen consists of multiple irregular fragments of light moore soft tissue that in aggregate measure 0.8 x 0.3 x 0.1 cm. The specimen is totally submitted in one cassette. C - Received in fixative is one container labeled with the patient's name and designated mid esophagus biopsy. The specimen consists of two irregular fragments of light moore soft tissue that in aggregate measure 0.6 x 0.2 x 0.1 cm. The specimen is totally submitted in one cassette. D - Received in fixative is one container labeled with the patient's name and designated random colonic biopsy. The specimen consists of multiple irregular fragments of light moore soft tissue that in aggregate measure 1 x 0.6 x 0.1 cm. The specimen is totally submitted in one cassette. E - Received in fixative is one container labeled with the patient's name and designated biopsy of proximal rectum. The specimen consists of two irregular fragments of light moore soft tissue that in aggregate measure 0.6 x 0.3 x 0.1 cm. The specimen is totally submitted in one cassette. / SCOTTY:tory 08/04/18 TC:3 CPT: 38535 x5, 61038
--- NOTE | 2018-08-04 | IMM_PTH ---
PATIENT: CHASTITY NUNEZ LOC: EN U#:[id number] AGE/SX: 43/F ROOM: RE08/04/[address]: Dr. Demarco Paniagua MD : 1975 BED: DIS: 08/04/2018 SPEC #: [id number] RECD: 08/04/18 15:25 STATUS: LEYLA PEGGY #: [id number] SHYAM: 08/04/18 00:[address]: Demarco Paniagua DEPT: IMMUNOHISTOCHEMISTRY RECD BY: Patsy Otoole ENTERED: 08/04/18 15:26 SP TYPE: IMMUNO OTHR DR: Dr. Horace Paniagua III, MD Tissues: A - Stomach, NOS Procedures: H Pylori (initial) [facility]YSICIAN [facility] [address] [address] SPECIMEN INFORMATION: Tissue Source: A - Antrum biopsy Clinical Info: Gastroesophageal reflux, diarrhea, periumbilical abdominal pain Specimen Number: [id number] CPT code: 53898 METHODOLOGY: Deparaffinized sections of prefer/formalin-fixed tissue or PAP/DQ stained slides are incubated with monoclonal/polyclonal antibodies/oligonucleotide probes. Localization is made via biotin free immunoperoxidase method. Appropriate controls are performed and reacted as expected. Results on target cell population are indicated in the following table: RESULTS: ANTIBODY / CLONE RESULT Block A H Pylori (polyclonal) negative These tests were developed and their performance characteristics determined by [facility]. They may not have been cleared or approved by the U.S. Food and Drug Administration. The FDA has determined that such clearance or approval is not necessary. INTERPRETATION: A. Antrum, biopsy: Negative for Helicobacter pylori organisms. SJ:tory 08/05/18
[2018-08-04 11:36] VITALS: BP 128/87; PULSE 81; RESP 16; TEMP 36.8; O2SAT 95; BMI 45.3
[2018-08-04 13:10] VITALS: BP 128/87; BP 142/79; PULSE 86; RESP 15; TEMP 36.6; O2SAT 97
--- NOTE | 2018-08-04 13:11 | OP.ENDO_ITS ---
Patient Name: Leslie De León Procedure Date: 08/04/2018 12:27 PM Date of : 1975 Age: 43 Procedure: Upper GI endoscopy Indications: Dysphagia, Suspected esophageal reflux Providers: Demarco Paniagua MD Medicines: See the Anesthesia note for documentation of the administered medications Complications: No immediate complications. Procedure: Pre-Anesthesia Assessment: - Prior to the procedure, a History and Physical was performed, and patient medications and allergies were reviewed. The patient's tolerance of previous anesthesia was also reviewed. The risks and benefits of the procedure and the sedation options and risks were discussed with the patient. All questions were answered, and informed consent was obtained. Prior Anticoagulants: The patient has taken no previous anticoagulant or antiplatelet agents. ASA Grade Assessment: II - A patient with mild systemic disease. After reviewing the risks and benefits, the patient was deemed in satisfactory condition to undergo the procedure. After obtaining informed consent, the endoscope was passed under direct vision. Throughout the procedure, the patient's blood pressure, pulse, and oxygen saturations were monitored continuously. The gastroscope was introduced through the mouth, and advanced to the second part of duodenum. The upper GI endoscopy was accomplished without difficulty. The patient tolerated the procedure well. Scope In: 12:41:08 PM Scope Out: 12:49:18 PM Total Procedure Duration Time 0 hours 8 minutes 10 seconds Findings: LA Grade A (one or more mucosal breaks less than 5 mm, not extending between tops of 2 mucosal folds) esophagitis with no bleeding was found 37 cm from the incisors. Biopsies were taken with a cold forceps for histology. A small hiatal hernia was present. The Z-line was irregular and was found 37 cm from the incisors. Diffuse moderately erythematous mucosa without bleeding was found in the gastric antrum. Biopsies were taken with a cold forceps for histology. The examined duodenum was normal. Impression: - LA Grade A reflux esophagitis. Biopsied. Mid esophageal biopsies obtained looking for eosinophilic esophagitis - Small hiatal hernia. - Z-line irregular, 37 cm from the incisors. - Erythematous mucosa in the antrum. Biopsied. - Normal examined duodenum. Recommendation: - Telephone my office for pathology results in 1 week. - Continue present medications. Procedure Code(s): --- Professional --- 61437, Esophagogastroduodenoscopy, flexible, transoral; with biopsy, single or multiple Diagnosis Code(s): --- Professional --- K21.0, Gastro-esophageal reflux disease with esophagitis K44.9, Diaphragmatic hernia without obstruction or gangrene K22.8, Other specified diseases of esophagus K31.89, Other diseases of stomach and duodenum R13.10, Dysphagia, unspecified CPT copyright 2017 [employer]. All rights reserved. The codes documented in this report are preliminary and upon poll watcher review may be revised to meet current compliance requirements. Demarco Paniagua MD 08/04/2018 1:10:44 PM This report has been signed electronically. Number of Addenda: 0 Note Initiated On: 08/04/2018 12:27 PM
--- NOTE | 2018-08-04 13:14 | OP.ENDO_ITS ---
Patient Name: Leslie De León Procedure Date: 08/04/2018 12:51 PM Date of : 1975 Age: 43 Procedure: Colonoscopy Indications: Chronic diarrhea Providers: Demarco Paniagua MD Medicines: See the Anesthesia note for documentation of the administered medications Patient Profile: Last Colonoscopy: none. The patient's first colonoscopy is today. Complications: No immediate complications. Procedure: Pre-Anesthesia Assessment: - Prior to the procedure, a History and Physical was performed, and patient medications and allergies were reviewed. The patient's tolerance of previous anesthesia was also reviewed. The risks and benefits of the procedure and the sedation options and risks were discussed with the patient. All questions were answered, and informed consent was obtained. Prior Anticoagulants: The patient has taken no previous anticoagulant or antiplatelet agents. ASA Grade Assessment: II - A patient with mild systemic disease. After reviewing the risks and benefits, the patient was deemed in satisfactory condition to undergo the procedure. After I obtained informed consent, the scope was passed under direct vision. Throughout the procedure, the patient's blood pressure, pulse, and oxygen saturations were monitored continuously. The Colonoscope was introduced through the anus and advanced to the cecum, identified by appendiceal orifice and ileocecal valve. The colonoscopy was performed without difficulty. The patient tolerated the procedure well. The quality of the bowel preparation was good. The ileocecal valve was photographed. Scope In: 12:53:34 PM Scope Withdrawal Time 0 hours 5 minutes 25 seconds Scope Out: 1:04:55 PM Total Procedure Duration Time 0 hours 11 minutes 21 seconds Findings: The perianal and digital rectal examinations were normal. Scattered diverticula were found in the sigmoid colon. Biopsies for histology were taken with a cold forceps from the entire colon for evaluation of microscopic colitis. The exam was otherwise without abnormality. A 4 mm polyp was found in the rectum. The polyp was sessile. The polyp was removed with a cold biopsy forceps. Resection and retrieval were complete. Impression: - Diverticulosis in the sigmoid colon. Biopsied. - The examination was otherwise normal. Recommendation: - Discharge patient to home. - Resume previous diet. - Continue present medications. - Telephone my office for pathology results in 1 week. - Repeat colonoscopy in 10 years for screening purposes. Demarco Paniagua MD 08/04/2018 1:14:34 PM This report has been signed electronically. Number of Addenda: 0 Note Initiated On: 08/04/2018 12:51 PM
[2018-08-04 13:15] VITALS: BP 128/87; BP 138/76; PULSE 80; RESP 16; O2SAT 96
[2018-08-04 13:20] VITALS: BP 128/87; BP 133/77; PULSE 80; RESP 16; O2SAT 97
[2018-08-04 13:24] VITALS: BP 128/87; BP 142/78; PULSE 74; RESP 16; TEMP 36.6; O2SAT 95
[2018-08-04 13:37] VITALS: BP 128/87
== END 2018-08-04 13:39 | disposition home or self-care (01) ==
LOC: EN 11:17 → AC 11:21
PROVIDERS: Family Provider Family Medicine; PCP Family Medicine; Referring Provider Surgery; Visit Provider Surgery
PROC: 0DJD8ZZ Inspection of Lower Intestinal Tract, Via Natural or Artificial Opening Endoscopic (ICD-10-PCS; CPT 45378; principal; 2018-08-04 12:10)
DX: K29.70 Gastritis, unspecified, without bleeding (principal); K62.1 Rectal polyp; K57.30 Diverticulosis of large intestine without perforation or abscess without bleeding; R13.10 Dysphagia, unspecified; K21.0 Gastro-esophageal reflux disease with esophagitis; K44.9 Diaphragmatic hernia without obstruction or gangrene; K31.89 Other diseases of stomach and duodenum; K22.8 Other specified diseases of esophagus; Z87.891 Personal history of nicotine dependence; D68.51 Activated protein C resistance; I10 Essential (primary) hypertension; I25.2 Old myocardial infarction; F32.9 Major depressive disorder, single episode, unspecified; F41.9 Anxiety disorder, unspecified; J45.909 Unspecified asthma, uncomplicated
CPT/HCPCS: 43239; 45380; 88305; 88313; 88342; J7120

== ENCOUNTER → 2018-09-14 15:41 | Outpatient (CLI) | payer OTHER, SELFPAY ==
[2018-09-14 16:27] LABS: D-Dimer Quantitative (DVT/PE) < 0.27 FEU/ug/m (0.27-0.49)
--- OUTSIDE RECORDS SUMMARY | 2018-11-10 02:06 | XMS RPT_ITS ---
:1975 Author Organization [place] Support Name Relationship Address Phone SARTHAKAGATA Unavailable [address] + [place] [address] NATIONAL RED CROSS Unavailable [address] + [place] [address] AURY BYRD Unavailable [address] + [place] [address] AGATA DE LEÓN Unavailable [address] + [place] [address] NATIONAL [place] Unavailable [address] + [place] [address] AURY BYRD Unavailable [address] + [place] [address] AGATA DE LEÓN Unavailable [address] + [place] [phone] NATIONAL [place]OSS Unavailable [address] + [place] [address] AURY BYRD Unavailable [address] + [place] [address] AGATA DE LEÓN Unavailable [address] + [place] [address] NATIONAL [place] CROSS Unavailable [address] + [place] [address] AURY BYRD Unavailable [address] + [place] [address] AGATA DE LEÓN Unavailable [address] + [place] [phone] [place] [address] RED CROSS Unavailable [address] + [place] [address] AURY BYRD Unavailable [address] + [place] [address] AGATA DE LEÓN Unavailable [address] + [place], [place] [phone] [place] [address] RED CROSS Unavailable [address] + [place] [address] AURY BYRD Unavailable [address] + [place] [address] AGATA DE LEÓN Unavailable [address] + [place] [phone] [place] [address] RED CROSS Unavailable [address] + [place] [address] AURY BYRD Unavailable [address] + [place] [address] AGATA DE LEÓN Unavailable [address] + [place] [phone] [place] [address] RED CROSS Unavailable [address] + [place] [address] AURY BYRD Unavailable [address] + [place] [address] NOT GIVEN Unavailable Unavailable Unavailable [place] AGATA DE LEÓN Unavailable Unavailable Unavailable NILDA BYRD Unavailable Unavailable + AGATA DE LEÓN Unavailable [address] [phone] CROSS Unavailable [address] + [place] [address] AURY BYRD Unavailable [address] + [place] [address] AGATA DE LEÓN Unavailable [address] [phone] [place] [phone] [place] [address] CROSS Unavailable [address] + [place] [address] AURY BYRD Unavailable [address] + [place] [address] AGATA DE LEÓN Unavailable [address] [address] [phone] CROSS Unavailable [address] + [place] [address] AURY BYRD Unavailable [address] + [place] [address] AGATA DE LEÓN Unavailable Unavailable Unavailable ILENEBLADENILDA Kemp Unavailable Unavailable + AGATA DE LEÓN Unavailable [address] + [place], [place] [phone] [place] [address] Un[address] + [place] [address] SARTHAKViridianaAURY Unavailable [address] + [place] [address] AGATA DE LEÓN Unavailable [address] + [place], [place] [id number] [place] [address] [address] + [place] [address] SARTHAKViridiana AURY Unavailable [address] + [place] [address] AGATA DE LEÓN Unavailable [address] + [place], [place] [address] [place] [address] Un[address] + [place] [address] SARTHAKNILDA KempARA Unavailable [address] + [place] [address] Care Team Providers Name Role Phone DR IGNACIO HYLTON Admitting Unavailable CONCETTA, DR IGNACIO Kaba Attending Unavailable DR IGNACIO HYLTON Primary Care Unavailable SABRINA PENA III Consulting Unavailable PROVIDER, UNKNOWN Consulting Unavailable VIOLETA PHILLIPS DO Admitting Unavailable VIOLETA PHILLIPS DO Attending Unavailable VIOLETA PHILLIPS DO Primary Care Unavailable SABRINA PENA III Consulting Unavailable SABRINA PENA III Referring Unavailable PROVIDER, UNKNOWN Consulting Unavailable KAREEM TURPIN Admitting Unavailable KAREEM TURPIN Attending Unavailable KAREEM TURPIN Primary Care Unavailable CEBUL, SABRINA III Consulting Unavailable PROVIDER, UNKNOWN Consulting Unavailable JASON KANG (LEAD OPERATOR) Referring Unavailable JASON KANG (LEAD OPERATOR) Attending Unavailable YOSEF MONTANO (HOLD WORKER) Attending Unavailable HOUSTONJODY MCFADDEN (HOLD WORKER) Referring Unavailable YOSEF MONTANO (HOLD WORKER) Attending Unavailable PODLOGARJUDITH (LEAD OPERATOR) Attending Unavailable CECELIAALANA Peñaloza (LEAD OPERATOR) Attending Unavailable JUDI MCGARRY (PA) Attending Unavailable JOSE PARK Referring Unavailable HAMARVA CEJA (LEAD OPERATOR) Attending Unavailable MARVA WOODWARD (LEAD OPERATOR) Referring Unavailable MINDY ELIZALDE (HOLD WORKER) Attending Unavailable CEBUL III, SABRINA A Referring Unavailable CEBUL III, SABRINA A Referring Unavailable CEBUL III, SABRINA A Referring Unavailable Alvarez Khalil Attending Unavailable Cebul III, Sabrina Referring Unavailable Cebul III, Sabrina Primary Care Unavailable Cebul III, Sabrina Primary Care Unavailable Alessia Housotn Attending Unavailable Cebul III, Sabrina Primary Care Unavailable Rodriguez Siegel Attending Unavailable Gris Griffin Attending Unavailable [place]Gris Referring Unavailable Cebul III, Sabrina Primary Care Unavailable Gaby, Molly Attending Unavailable Cebul III, Sabrina Referring Unavailable Cebul III, Sabrina Primary Care Unavailable GabyGris cardenas Attending Unavailable GabyGris Referring Unavailable Cebul III, Sabrina Primary Care Unavailable Cebul III, Sabrina Primary Care Unavailable Guanakito Quesada Attending Unavailable Cebul III, Sabrina Primary Care Unavailable Guanakito Quesada Attending Unavailable Cebul III, Sabrina Primary Care Unavailable Alessia Houston Attending Unavailable CebulDemarco Attending Unavailable Cebul III, Sabrina Referring Unavailable CebulDemarco Attending Unavailable Cebul, Demarco Referring Unavailable Cebul III, Sabrina Primary Care Unavailable Cebul, Demarco Attending Unavailable Marva [place] Attending Unavailable Marva [place] Referring Unavailable Cebul III, Sabrina Primary Care Unavailable Cebul III, Sabrina Primary Care Unavailable Gil Ruano Attending Unavailable PROBLEMS PROBLEMS DATE TYPE CONDITION / CODE ATTENDING STATUS SOURCE 10/04/2018 Active Hyperglycemia, NA Active [facility] unspecified / [facility] [place] R73.9(ICD-10) Repository 09/22/2018 Active Abnormal weight NA Active [facility] gain / [facility] [place] R63.5(ICD-10) Repository 09/22/2018 Active Gastro-esophageal THORPEMINDY Active [facility] reflux disease with (HOLD WORKER) [facility] [place] esophagitis / Repository K21.0(ICD-10) 09/22/2018 Active Other gastritis THORPE, MINDY Active [facility] without bleeding / (HOLD WORKER) [facility] [place] K29.60(ICD-10) Repository 09/14/2018 Unknown R05 - Cough / HaMarva ceja Active [facility](ICD-10[facility] Rep[facility] 09/14/2018 Unknown R06.02 - Shortness HaagenMarva Active [facility] of breath / Community R06.02(ICD-10) Hospital Repository 08/31/2018 Active Cough / R05(ICD-10) NA Active [facility] [place] Repository 08/18/2018 Unknown R13.10 - Dysphagia, CebuDemarco reyes Active [facility] unspecified / Community R13.10(ICD-10) Hospital Repository 08/18/2018 Unknown K21.0 - CeDemarco orr Active [facility] reflux disease with Hospital esophagitis / Repository K21.0(ICD-10) 08/18/2018 Unknown K44.9 - CebulDemarco Active [facility] hernia without Hospital obstruction or Repository gangrene / K44.9(ICD-10) 08/18/2018 Unknown K22.8 - Other CebulDemarco Active [facility] specified diseases [facility] of esophagus / Hospital K22.8(ICD-10) Repository 05/02/2018 Active Unknown / CECELIAALANA JJ Active [facility] UNK(Unknown) (LEAD OPERATOR) [facility] [place] Repository 01/27/2018 Unknown O92.6 - Gaby, Gris Active [facility] Galactorrhea / Community O92.6(ICD-10) Hospital Repository 01/27/2018 Unknown R63.5 - Abnormal [place], Gris Active [facility] weight gain / Community R63.5(ICD-10) Hospital Repository 01/20/2018 Active Unspecified injury NA Active [facility] of right foot, [facility] [place] initial encounter / Repository S99.921A(ICD-10) 12/17/2017 Active Shortness of breath NA Active [facility] / R06.02(ICD-10) [facility] [place] Repository PROCEDURES PROCEDURES No Procedure Records FoundRESULTS RESULTS COMP METABOLIC PANEL Collected: 10/04/2018 Status: F Source: [place] 1:07 PM [facility] REPOSITORY TYPE CODE TESTS RESULT OUT OF REFERENCE UNITS RANGE LAB TP 6.3-8.0 g/dL Protein, Total 6.6 LAB ALB 3.9-4.9 g/dL Albumin 4.0 LAB CA 8.5-10.2 mg/dL Calcium, Total 9.4 LAB TBIL 0.2-1.3 mg/dL Bilirubin, Total 0.4 LAB ALKP 34-123 U/L Alkaline Phosphatase 64 LAB AST 13-35 U/L AST 28 LAB GLU 74-99 mg/dL Glucose High 154 LAB BUN 7-21 mg/dL BUN 11 LAB CRET 0.58-0.96 mg/dL Creatinine 0.86 LAB NA 136-144 mmol/L Sodium 138 LAB K 3.7-5.1 mmol/L Potassium 4.0 LAB CL 97-105 mmol/L Chloride 102 LAB CO2 22-30 mmol/L CO2 25 LAB AGAP mmol/L Anion Gap 11 LAB ALT 7-38 U/L ALT High 40 LAB GFRAA eGFR- >60 Amer. LAB GFRNAA . eGFR-All Other Races >60 Result Comment: eGFR (Estimated GFR) Units of measure: mL/min/1.73 meters squared eGFR is derived from the reexpressed MDRD Study equation using the following parameters: serum creatinine, age, gender and race. The creatinine assay has been calibrated to be traceable to IDMD. An eGFR <60 mL/min/1.73m2 for >3 months is consistent with chronic kidney disease. Refer to KDOQI guidelines for clinical interpretation. In patients with unstable renal function, e.g. those with acute kidney injury, the eGFR may not accurately reflect actual GFR. COMP METABOLIC PANEL Collected: 09/22/2018 Status: F Source: [place] 9:41 AM [facility] REPOSITORY TYPE CODE TESTS RESULT OUT OF REFERENCE UNITS RANGE LAB TP 6.3-8.0 g/dL Protein, Total 7.1 LAB ALB 3.9-4.9 g/dL Albumin 3.9 LAB CA 8.5-10.2 mg/dL Calcium, Total 9.0 LAB TBIL 0.2-1.3 mg/dL Bilirubin, Total 0.2 LAB ALKP 34-123 U/L Alkaline Phosphatase 55 LAB AST 13-35 U/L AST 20 LAB GLU 74-99 mg/dL Glucose High 113 Result Comment: The [place] [employer] Association (ADA) provides guidance for cutoff values for fasting glucose and random glucose. The ADA defines fasting as no caloric intake for at least 8 hours. Fas ting plasma glucose results between 100 to 125 mg/dL indicate increased risk for diabetes (prediabetes). Fasting plasma glucose results greater than or equal to 126 mg/dL meet the criteria for diagnosis of diabetes. In the absence of unequivocal hyperglycemia, results should be confirmed by repeat testing. In a patient with classic symptoms of hyperglycemia or hyperglycemic crisis, random plasma glucose results greater than or equal to 200 mg/dL meet the criteria for diagnosis of diabetes. Reference: Standards of Medical Care in Diabetes 2016, [place] [employer] Association. Diabetes Care. 2016.39(Suppl 1). LAB BUN 7-21 mg/dL BUN 12 LAB CRET 0.58-0.96 mg/dL Creatinine 0.82 LAB NA 136-144 mmol/L Sodium 137 LAB K 3.7-5.1 mmol/L Potassium 4.7 LAB CL 97-105 mmol/L Chloride 102 LAB CO2 22-30 mmol/L CO2 23 LAB AGAP 9-18 mmol/L Anion Gap 12 LAB ALT 7-38 U/L ALT 29 LAB GFRAA eGFR- Amer. >60 LAB GFRNAA . eGFR-All Other Races >60 Result Comment: eGFR (Estimated GFR) Units of measure: mL/min/1.73 meters squared eGFR is derived from the reexpressed MDRD Study equation using the following parameters: serum creatinine, age, gender and race. The creatinine assay has been calibrated to be traceable to IDMS. An eGFR <60 mL/min/1.73m2 for >3 months is consistent with chronic kidney disease. Refer to KDOQI guidelines for clinical interpretation. In patients with unstable renal function, e.g. those with acute kidney injury, the eGFR may not accurately reflect actual GFR. Performed By: #### CMP, TSH #### [facility] [address] [place], [place] [address] TSH Collected: 09/22/2018 Status: F Source: [place] 9:41 AM [facility] REPOSITORY TYPE CODE TESTS RESULT OUT OF RANGE REFERENCE UNITS LAB TSH 0.400-5.500 uU/mL TSH 1.250 Result Comment: If the patient is , TSH reference range varies by gestational period: First Trimester 0.100-2.500 uU/mL Second Trimester 0.200-3.000 uU/mL Third Trimester 0.300-3.000 uU/mL References: 1. Salvador L, Mark M, Mukesh EK, et al. Management of Thyroid Dysfunction during and : An Endocrine Society Clinical Practice Guideline. J Clin Endocrinol Metab, 2012:97:7070-1190. 2. Anthony LEWIS. Overview of thyroid disease in . UpToDate. 2016. Accessed on April 03, 2016. Performed By: #### CMP, TSH #### [facility] [address] [place], [place] [address] CNOV Observed: 09/22/2018 Status: COMPLETED Source: [place] 8:20 AM [facility] REPOSITORY [facility] LESLIE DE LEÓN ([id number]) 1975 F Date Time Provider Department 09/22/18 8:20 AM MINDY ELIZALDE (KATIE) [facility] During your visit today, we recorded the following information about you: Pulse Blood pressure Weight Height 96/minute 127/80 120 kg 1.626 m Mindy Elizalde RN [facility] 09/22/2018 9:36 AM Signed Leslie De León a 43 year old female who is a consultation requested by JR Stanton, for an opinion regarding GERD. My final recommendations will be communicated back to the requesting physician by way of shared Medical record. The patient has not been seen previously. The patient was seen by Judi on 07/15/18, leading to this consultation. That note has been reviewed and part as follows: For about month patient has had worsening reflux symptoms. States stomach is always upset Belching frequently. Has had vomiting episodes Currently taking 40mg of prilosec, carafate BID. She is also taking prepto. Ranitidine was added to her medication routine. The patient was seen by Dr. Demarco Pena for upper endoscopy (dysphagia and suspected reflux) and colonoscopy (chronic diarrhea) 07/27/18. The procedure report has been reviewed and findings as follows: EGD Impression: - LA Grade A reflux esophagitis. Biopsied. Mid esophageal biopsies obtained looking for eosinophilic esophagitis - Small hiatal hernia. - Z-line irregular, 37 cm from the incisors. - Erythematous mucosa in the antrum. Biopsied. - Normal examined duodenum. Colonoscopy Impression: - Diverticulosis in the sigmoid colon. Biopsied. - The examination was otherwise normal. MICROSCOPIC DIAGNOSIS A. Antrum biopsy: Mild gastritis. See microscopic description and comment. B. Distal esophageal biopsy: Fragments of gastroesophageal mucosa with chronic inflammation. Intestinal metaplasia (goblet cell metaplasia) is not identified. See comment. C. Mid esophagus, biopsy: Fragments of squamous epithelium with mild chronic inflammation. D. Colon, random biopsy: Fragments of colonic mucosa, no pathologic diagnosis. E. Proximal rectum polyp, biopsy: Fragments of hyperplastic polyp. RESULTS: ANTIBODY / CLONE RESULT Block A H Pylori (polyclonal) negative Dr. Sabrina Pena recommended that the patient lose weight and continue the above medication. Presenting complaint: The patient presents today stating I am miserable just eating. Food just sets here and I am miserable. Onset the end of May. She tells me that she initially had severe heartburn. The meds have helps a bit with that. The patient has been taking omeprazole for over a year. Ranitidine and Carafate was added in May. She usually gets 2 Carafate in a day. The patient tells me that she wakes feeling queasy, almost like morning sickness. She gets bloated as the day goes on. She tells me that she deflates during the night. Minimal lactose. Goes on to say one day I have diarrhea, one day I have constipation. Maria Del Carmen in 2011. She tells me that she usually had a bowel movement daily until May. Now can be every three days - diarrhea or constipation. No blood. we discussed starting Benefiber. The patient reports the only pain is belly button aching. Comes and goes. Dinner is usually 7:00. Heads to bed about 9:30. Sleeps with the head of the bed flat - props with pillows. We discussed needing to elevate the entire bed. The patient also also notes the recommendation for her to lose weight. I have suggested Weight Watchers. She tells me that she actually mentioned WW to her daughter last night. REVIEW OF SYSTEMS: GENERAL: No weight loss, malaise or fevers RESPIRATORY: No URI issues CARDIOVASCULAR: No chest pain or patpitations GI: The patient states that her appetite has been good. She does get hungry. There has been some nausea, no vomiting. She denies dysphagia and denies odynophagia. There has partially been indigestion with heartburn. There has partially been regurgitation. Bowel habits have been irregular. There has partially been diarrhea. There has partially been constipation. The patient denies rectal bleeding. There has not been melena. Intermittent abdominal pain that is located in the umbilicus. CONDENSER TUBE TENDER: Negative for abnormal vaginal bleeding, abnormal vaginal discharge. HEMATOLOGY/LYMPHOLOGY Negative for prolonged bleeding, bruising easily or swollen nodes ENDOCRINE: Not aware of thyroid or diabetes. NEURO: No history of headaches, syncope, paralysis, seizures or tremors All other reviewed and negative other than HPI. PAST MEDICAL HISTORY Diagnosis Date - Abnormal glandular Papanicolaou smear of cervix Abn. Pap smear (cervix) - Acute myopericarditis 2011 cardiomyopathy - Dysthymic disorder Depression (non-psychotic) - Hypertension - Incidental lung nodule, > 3mm and < 8mm 03/24/2017 03/17/17: 7.5 mm nodule RLL - Migraine with aura and without status migrainosus, not intractable 01/09/2016 - Morbid obesity due to excess calories (HCC) 03/24/2017 - Protein S deficiency (HCC) - Pulmonary embolus (HCC) 2007 left lung, after delivery with cardiomyopathy - RLL pneumonia (HCC) 03/10/2017 - Unspecified asthma(493.90) - Urinary calculus, unspecified 2004 Renal stones PAST SURGICAL HISTORY Procedure Laterality Date - COLONOSCOP W/ OR W/O BRSH SPEC 08/04/2018 WC-Luca Pena-Repeat 10 years - EGD W/O OR W/BRUSH/WASH 08/04/2018 small hiatal hernia - HYSTEROSCOPY WBX WWO D AND C ANDOR POLYPECTOMY 2013 - INT REPAIR SCALP,WILLARD,TRUNK 7.6-12.5CM 02/21/07 RIGHT - INT REPAIR SCALP,WILLARD,TRUNK 7.6-12.5CM 02/21/07 LEFT - LAP CHOLECYSTECT/CHOLANGIOGRAPHY 10-27-11 - LAPAROSCOPIC TUBAL LIGATION/RING/CLIP 04/03/2014 filshie clips - LAPAROSCOPY, SURGICAL, URETEROLITHO - PAST SURGICAL HISTORY OF 2007 heart cath at [facility] by Dr. Aburto - REM LESION TRUNK,ARM,LEG 0.6 -1.0CM 01/26/07 Exc. right axillary and right ant. thigh lesions - REM LESION TRUNK,ARM,LEG > 4.0CM 02/21/07 RIGHT - REM LESION TRUNK,ARM,LEG > 4.0CM 02/21/07 LEFT - THERMAL ENDOMETRIAL ABLATION 04/03/2014 thermachoice ablation FAMILY HISTORY Problem Relation Age of Onset - Cancer Mother UTERUS - Diabetes Mother - Hypertension Mother - Diabetes Father - Heart Father - Hypertension Father - Developmental problem Maternal Aunt - Hypertension Maternal Grandmother - Colon Cancer Maternal Grandfather - Hypertension Maternal Grandfather - Diabetes Maternal Grandfather - Heart Maternal Grandfather - Diabetes Maternal Grandmother - Diabetes Paternal Grandmother - Diabetes Paternal Grandfather - Hearing Loss Paternal Grandfather - Hearing Loss Daughter - COPD Maternal Grandfather - Thyroid Mother - Heart Paternal Grandmother GA - other (Pancreatitis [Other]) Mother Current Outpatient Prescriptions: predniSONE (DELTASONE) 10 mg tablet Take 4 tabs daily x 3 days, then 3 tabs x 3 days, 2 tabs x 3 days, then 1 tab x3 days with food. Disp: 30 tablet Rfl: 0 fluticasone-salmeterol (ADVAIR DISKUS) 250-50 mcg/dose dsdv Inhale 1 Puff as instructed twice daily. Rinse and gargle mouth after use with water. Disp: 1 Inhaler Rfl: 1 sucralfate (CARAFATE) 1 gram tablet Take 1 tablet by mouth four times daily. Disp: Rfl: ranitidine (ZANTAC) 150 mg tablet Take 1 tablet by mouth twice daily. Disp: 60 tablet Rfl: 1 venlafaxine ER (EFFEXOR XR) 37.5 mg 24 hr capsule Take 1 capsule by mouth once daily. Disp: 30 capsule Rfl: 11 topiramate (TOPAMAX) 25 mg tablet Take 2 tablets by mouth twice daily. Disp: 60 tablet Rfl: 1 rizatriptan (MAXALT PROPELLANT CHARGE ZONE ASSEMBLER) 10 mg disintegrating tablet Take 1 tablet by mouth as needed. May repeat in 2 hours if needed, Maximum dose=30 mg/24 hours Disp: 10 tablet Rfl: 1 omeprazole (PRILOSEC) 20 mg capsule Take 1 capsule by mouth daily before breakfast. 1/2 hr before meal. Disp: 90 capsule Rfl: 1 hydroCHLOROthiazide (HYDRODIURIL, ESIDRIX) 25 mg tablet Take 1 tablet by mouth once daily. Disp: 90 tablet Rfl: 3 albuterol HFA (PROAIR HFA) 90 mcg/actuation inhaler Inhale 2 Puffs as instructed every 4 hours as needed. Disp: 1 Inhaler Rfl: 0 citalopram (CELEXA) 20 mg tablet Take 1.5 tablets by mouth once daily. Disp: 45 tablet Rfl: 13 No current facility-administered medications for this visit. SOCIAL HISTORY: Patient is . She quit smoking in 2012 and reports her alcohol use as rarely <1per month. PHYSICAL EXAMINATION: General Appearance: Well appearing, alert, in no acute distress, well-hydrated, well nourished. Skin: Skin color, texture, turgor normal, no suspicious rashes or lesions. Head: Normocephalic, no masses, lesions or abnormalities. Eyes: Anicteric sclera. Neck: Supple, no adenopathy; thyroid symmetric. Lungs: lungs clear to auscultation. No wheezing, rhonchi, rales. Heart: RRR without murmur. Abdomen: Normal abdominal exam, Abdomen soft, non-tender. Bowel sounds normal. No masses, organomegaly. Extremities: No deformities, edema, skin discoloration, clubbing or cyanosis. Impression: GERD with esophagitis 2)gastritis upper abdominal bloating Plan: Gastric emptying study. Labs. Agree with Dr. Pena that weight loss is necessary - recommended Weight Watchers. Small meals. Avoid eating and medications less than 3 hours before bed. Elevate the head of the bed 6 inches. Follow up in 3 months, sooner, I needed. I have personally interviewed and examined this patient. I have reviewed the information that the PRODUCT MANAGENT INTERN entered for this encounter. I spent 30 minutes in the visit, with greater than 50% of the total [id number] time of the visit in counseling and coordination of care. Mindy Elizalde RN APRN.LEONIE Elizalde RN APRN.LEONIE 09/22/2018 9:23 AM Signed Make the evening meal light. Increase omeprazole to 40mg a day. You may take both ranitidine at the same time, in the evening. Stop eating and meds 3 hours before bed. Elevate the head of the bed 6 inches. Begin Weight Watchers. Begin Benefiber. Start by taking one tablespoon in 8 oz of liquid daily for 3-4 weeks. Increase to two tablespoons daily for 3-4 weeks. Finally take three tablespoons daily. At that point you may divide the dose and take twice a day, if you'd like. Do not stop using this. Please follow the instructions for the test that looks at your stomach emptying. It will take a day or two after the test for us to get the results. Call [phone], and ask to speak to a nurse in GI, if you have any questions or concerns in the mean time. [email or web address] Referring Provider: SABRINA PENA III [[id number]] Allergies As of Date: 09/22/2018 Noted Allergy Reaction PENICILLINS 07/02/2005 4 - Hives TRAMADOL 01/30/2008 11 - Vomiting Date Reviewed: 09/22/2018 Reviewed by: Wendy De Oliveira PRODUCT MANAGENT INTERN - Fully Assessed Reason for Visit: GERD [548] Primary Visit Diagnosis:Other gastritis without bleeding [K29.60] Other Visit Diagnoses:Gastroesophageal reflux disease with esophagitis [K21.0] Dyspepsia [R10.13] Weight gain [R63.5] Order(s):COMP METABOLIC PANEL [SQCMP] Order #: [id number] FUTURE TSH BLD [SQTSH] Order #: [id number] FUTURE NM GASTRIC EMPTYING SOLID [[id number]] Order #: [id number] FUTURE ranitidine (ZANTAC) 150 mg tabletTake 2 tablets by mouth DAILY AT 6 PM.Disp: Rfl: Omeprazole 40 mg capsuleTake 1 capsule by mouth once daily.Disp: 30 capsuleRfl: 11 Prescriptions as of 09/22/2018 Sig: RANITIDINE 150 MG TABLET Take 2 tablets by mouth DAILY* PREDNISONE 10 MG TABLET Take 4 tabs daily x 3 days, t* FLUTICASONE 250 MCG-SALMETERO* Inhale 1 Puff as instructed t* SUCRALFATE 1 GRAM TABLET Take 1 tablet by mouth four t* VENLAFAXINE ER 37.5 MG CAPSUL* Take 1 capsule by mouth once * TOPIRAMATE 25 MG TABLET Take 2 tablets by mouth twice* RIZATRIPTAN 10 MG DISINTEGRAT* Take 1 tablet by mouth as nee* HYDROCHLOROTHIAZIDE 25 MG TAB* Take 1 tablet by mouth once d* ALBUTEROL SULFATE HFA 90 MCG/* Inhale 2 Puffs as instructed * CITALOPRAM 20 MG TABLET Take 1.5 tablets by mouth onc* OMEPRAZOLE 40 MG CAPSULE,MIGUEL ANGEL* Take 1 capsule by mouth once * Problem List As Of Date 09/22/2018 Noted Resolved Calculus of kidney [N20.0] INVALID FOR*03/28/2014 HIDRADENITIS [L73.2] INVALID FOR* Unspecified asthma(493.90) [J45.909] 03/28/2014 More... Hypopotassemia [E87.6] INVALID FOR*03/28/2014 Biliary dyskinesia [K82.8] INVALID FOR*03/28/2014 Acute myopericarditis [I30.9] INVALID FOR*03/28/2014 Migraine with aura and without status migrainos*INVALID FOR* Chronic pelvic pain in female [R10.2, G89.29] INVALID FOR* Acute myopericarditis [I30.9] INVALID FOR* Incidental lung nodule, > 3mm and < 8mm [R91.1] INVALID FOR* More... Hot flashes [R23.2] INVALID FOR* Morbid obesity due to excess calories (HCC) [E6*INVALID FOR* Other instructions from your clinician: Make the evening meal light. Increase omeprazole to 40mg a day. You may take both ranitidine at the same time, in the evening. Stop eating and meds 3 hours before bed. Elevate the head of the bed 6 inches. Begin Weight Watchers. Begin Benefiber. Start by taking one tablespoon in 8 oz of liquid daily for 3-4 weeks. Increase to two tablespoons daily for 3-4 weeks. Finally take three tablespoons daily. At that point you may divide the dose and take twice a day, if you'd like. Do not stop using this. Please follow the instructions for the test that looks at your stomach emptying. It will take a day or two after the test for us to get the results. Call [phone], and ask to speak to a nurse in GI, if you have any questions or concerns in the mean time. [email or web address] Prescriptions ordered this encounter Disp Refills Start End RANITIDINE 150 MG TABLET 09/22/2018 Class: Med Update Route: ORAL Sig: Take 2 tablets by mouth DAILY AT 6 PM. OMEPRAZOLE 40 MG CAPSULE,DELAYED REL* 30 c* 11 09/22/2018 Route: ORAL Sig: Take 1 capsule by mouth once daily. Medications Discontinued During This Encounter ranitidine (ZANTAC) 150 mg tablet 60 t* 1 07/15/2018 09/22/2018 Route: ORAL Sig: Take 1 tablet by mouth twice daily. Disc: Adjust Sig - Block E-Cancel omeprazole (PRILOSEC) 20 mg capsule 90 c* 1 01/11/2018 09/22/2018 Route: ORAL Sig: Take 1 capsule by mouth daily before breakfast. 1/2 hr before meal. Disc: Changing Therapy/Dosage Form Encounter Status:Closed by MINDY ELIZALDE CNP on 09/22/18 HISTORY PHYSICAL Observed: 09/21/2018 Status: COMPLETED Source: [place] 7:29 PM [facility] REPOSITORY HNO ID: [id number] Author: Mindy (Katie) Fide Service: (none) Author Type: Nurse Practitioner Type: HANDP Filed: 09/22/2018 9:36 AM Note Text: Leslie De León a 43 year old female who is a consultation requested by JR Stanton, for an opinion regarding GERD. My final recommendations will be communicated back to the requesting physician by way of shared Medical record. The patient has not been seen previously. The patient was seen by Judi on 07/15/18, leading to this consultation. That note has been reviewed and part as follows: For about month patient has had worsening reflux symptoms. States stomach is always upset Belching frequently. Has had vomiting episodes Currently taking 40mg of prilosec, carafate BID. She is also taking prepto. Ranitidine was added to her medication routine. The patient was seen by Dr. Demarco Pena for upper endoscopy (dysphagia and suspected reflux) and colonoscopy (chronic diarrhea) 07/27/18. The procedure report has been reviewed and findings as follows: EGD Impression: - LA Grade A reflux esophagitis. Biopsied. Mid esophageal biopsies obtained looking for eosinophilic esophagitis - Small hiatal hernia. - Z-line irregular, 37 cm from the incisors. - Erythematous mucosa in the antrum. Biopsied. - Normal examined duodenum. Colonoscopy Impression: - Diverticulosis in the sigmoid colon. Biopsied. - The examination was otherwise normal. MICROSCOPIC DIAGNOSIS A. Antrum biopsy: Mild gastritis. See microscopic description and comment. B. Distal esophageal biopsy: Fragments of gastroesophageal mucosa with chronic inflammation. Intestinal metaplasia (goblet cell metaplasia) is not identified. See comment. C. Mid esophagus, biopsy: Fragments of squamous epithelium with mild chronic inflammation. D. Colon, random biopsy: Fragments of colonic mucosa, no pathologic diagnosis. E. Proximal rectum polyp, biopsy: Fragments of hyperplastic polyp. RESULTS: ANTIBODY / CLONE RESULT Block A H Pylori (polyclonal) negative Dr. Sabrina Pena recommended that the patient lose weight and continue the above medication. Presenting complaint: The patient presents today stating I am miserable just eating. Food just sets here and I am miserable. Onset the end of May. She tells me that she initially had severe heartburn. The meds have helps a bit with that. The patient has been taking omeprazole for over a year. Ranitidine and Carafate was added in May. She usually gets 2 Carafate in a day. The patient tells me that she wakes feeling queasy, almost like morning sickness. She gets bloated as the day goes on. She tells me that she deflates during the night. Minimal lactose. Goes on to say one day I have diarrhea, one day I have constipation. Maria Del Carmen in 2011. She tells me that she usually had a bowel movement daily until May. Now can be every three days - diarrhea or constipation. No blood. we discussed starting Benefiber. The patient reports the only pain is belly button aching. Comes and goes. Dinner is usually 7:00. Heads to bed about 9:30. Sleeps with the head of the bed flat - props with pillows. We discussed needing to elevate the entire bed. The patient also also notes the recommendation for her to lose weight. I have suggested Weight Watchers. She tells me that she actually mentioned WW to her daughter last night. REVIEW OF SYSTEMS: GENERAL: No weight loss, malaise or fevers RESPIRATORY: No URI issues CARDIOVASCULAR: No chest pain or patpitations GI: The patient states that her appetite has been good. She does get hungry. There has been some nausea, no vomiting. She denies dysphagia and denies odynophagia. There has partially been indigestion with heartburn. There has partially been regurgitation. Bowel habits have been irregular. There has partially been diarrhea. There has partially been constipation. The patient denies rectal bleeding. There has not been melena. Intermittent abdominal pain that is located in the umbilicus. CONDENSER TUBE TENDER: Negative for abnormal vaginal bleeding, abnormal vaginal discharge. HEMATOLOGY/LYMPHOLOGY Negative for prolonged bleeding, bruising easily or swollen nodes ENDOCRINE: Not aware of thyroid or diabetes. NEURO: No history of headaches, syncope, paralysis, seizures or tremors All other reviewed and negative other than HPI. PAST MEDICAL HISTORY Diagnosis Date - Abnormal glandular Papanicolaou smear of cervix Abn. Pap smear (cervix) - Acute myopericarditis 2011 cardiomyopathy - Dysthymic disorder Depression (non-psychotic) - Hypertension - Incidental lung nodule, > 3mm and < 8mm 03/24/2017 03/17/17: 7.5 mm nodule RLL - Migraine with aura and without status migrainosus, not intractable 01/09/2016 - Morbid obesity due to excess calories (HCC) 03/24/2017 - Protein S deficiency (HCC) - Pulmonary embolus (HCC) 2007 left lung, after delivery with cardiomyopathy - RLL pneumonia (HCC) 03/10/2017 - Unspecified asthma(493.90) - Urinary calculus, unspecified 2004 Renal stones PAST SURGICAL HISTORY Procedure Laterality Date [facility] - EGD W/O OR W/BRUSH/WASH 08/04/2018 small hiatal hernia - HYSTEROSCOPY WBX WWO D AND C ANDOR POLYPECTOMY 2013 - INT REPAIR SCALP,WILLARD,TRUNK 7.6-12.5CM 02/21/07 RIGHT - INT REPAIR SCALP,WILLARD,TRUNK 7.6-12.5CM 02/21/07 LEFT - LAP CHOLECYSTECT/CHOLANGIOGRAPHY 10-27-11 - LAPAROSCOPIC TUBAL LIGATION/RING/CLIP 04/03/2014 filshie clips - LAPAROSCOPY, SURGICAL, URETEROLITHO - PAST SURGICAL HISTORY OF 2007 heart cath at [facility] by Dr. Aburto - REM LESION TRUNK,ARM,LEG 0.6 -1.0CM 01/26/07 Exc. right axillary and right ant. thigh lesions - REM LESION TRUNK,ARM,LEG > 4.0CM 02/21/07 RIGHT - REM LESION TRUNK,ARM,LEG > 4.0CM 02/21/07 LEFT - THERMAL ENDOMETRIAL ABLATION 04/03/2014 thermachoice ablation FAMILY HISTORY Problem Relation Age of Onset - Cancer Mother UTERUS - Diabetes Mother - Hypertension Mother - Diabetes Father - Heart Father - Hypertension Father - Developmental problem Maternal Aunt - Hypertension Maternal Grandmother - Colon Cancer Maternal Grandfather - Hypertension Maternal Grandfather - Diabetes Maternal Grandfather - Heart Maternal Grandfather - Diabetes Maternal Grandmother - Diabetes Paternal Grandmother - Diabetes Paternal Grandfather - Hearing Loss Paternal Grandfather - Hearing Loss Daughter - COPD Maternal Grandfather - Thyroid Mother - Heart Paternal Grandmother GA - other (Pancreatitis [Other]) Mother Current Outpatient Prescriptions: predniSONE (DELTASONE) 10 mg tablet Take 4 tabs daily x 3 days, then 3 tabs x 3 days, 2 tabs x 3 days, then 1 tab x3 days with food. Disp: 30 tablet Rfl: 0 fluticasone-salmeterol (ADVAIR DISKUS) 250-50 mcg/dose dsdv Inhale 1 Puff as instructed twice daily. Rinse and gargle mouth after use with water. Disp: 1 Inhaler Rfl: 1 sucralfate (CARAFATE) 1 gram tablet Take 1 tablet by mouth four times daily. Disp: Rfl: ranitidine (ZANTAC) 150 mg tablet Take 1 tablet by mouth twice daily. Disp: 60 tablet Rfl: 1 venlafaxine ER (EFFEXOR XR) 37.5 mg 24 hr capsule Take 1 capsule by mouth once daily. Disp: 30 capsule Rfl: 11 topiramate (TOPAMAX) 25 mg tablet Take 2 tablets by mouth twice daily. Disp: 60 tablet Rfl: 1 rizatriptan (MAXALT PROPELLANT CHARGE ZONE ASSEMBLER) 10 mg disintegrating tablet Take 1 tablet by mouth as needed. May repeat in 2 hours if needed, Maximum dose=30 mg/24 hours Disp: 10 tablet Rfl: 1 omeprazole (PRILOSEC) 20 mg capsule Take 1 capsule by mouth daily before breakfast. 1/2 hr before meal. Disp: 90 capsule Rfl: 1 hydroCHLOROthiazide (HYDRODIURIL, ESIDRIX) 25 mg tablet Take 1 tablet by mouth once daily. Disp: 90 tablet Rfl: 3 albuterol HFA (PROAIR HFA) 90 mcg/actuation inhaler Inhale 2 Puffs as instructed every 4 hours as needed. Disp: 1 Inhaler Rfl: 0 citalopram (CELEXA) 20 mg tablet Take 1.5 tablets by mouth once daily. Disp: 45 tablet Rfl: 13 No current facility-administered medications for this visit. SOCIAL HISTORY: Patient is . She quit smoking in 2012 and reports her alcohol use as rarely <1per month. PHYSICAL EXAMINATION: General Appearance: Well appearing, alert, in no acute distress, well-hydrated, well nourished. Skin: Skin color, texture, turgor normal, no suspicious rashes or lesions. Head: Normocephalic, no masses, lesions or abnormalities. Eyes: Anicteric sclera. Neck: Supple, no adenopathy; thyroid symmetric. Lungs: lungs clear to auscultation. No wheezing, rhonchi, rales. Heart: RRR without murmur. Abdomen: Normal abdominal exam, Abdomen soft, non-tender. Bowel sounds normal. No masses, organomegaly. Extremities: No deformities, edema, skin discoloration, clubbing or cyanosis. Impression: GERD with esophagitis 2)gastritis upper abdominal bloating Plan: Gastric emptying study. Labs. Agree with Dr. Pena that weight loss is necessary - recommended Weight Watchers. Small meals. Avoid eating and medications less than 3 hours before bed. Elevate the head of the bed 6 inches. Follow up in 3 months, sooner, I needed. I have personally interviewed and examined this patient. I have reviewed the information that the PRODUCT MANAGENT INTERN entered for this encounter. I spent 30 minutes in the visit, with greater than 50% of the total dddf-qz-yabs time of the visit in counseling and coordination of care. Mindy Elizalde RN [facility] EMERGENCY DEPARTMENT Observed: 09/14/2018 Status: F Source: [place] SUMMARY 11:02 PM [facility] REPOSITORY [facility] Medical Records Department [address] [place] [address] Emergency Department Summary 09/14/18 2237 MR#: [id number] Acct: [id number] Name: LESLIE DE LEÓN Rep #: [id number] : 1975 43 From: Gil Ruano MD PCP: Sabrina Pena III, MD Status: DEP ER - ER Visit Summary Date of Service: 09/14/18 Chief Complaint: [] Cough History of Present Illness: The patient is a 43 F [] patient had a cough for the last 4 weeks gradual onset intermittent. Current severity is mild. Nonproductive per patient. She started a Z-Nick today she saw her family doctor and had a d-dimer that was negative. She took doxycycline back in July. She had a negative chest x-ray July 18. She increased her Advair today. She does not smoke cigarettes. She is on max therapy for reflux. She has been using Delsym NyQuil and she was on Mucinex in the past. She is really requesting something for her cough Physical Examination: [] Vital signs reviewed General: Well-nourished well-developed Head: Normocephalic atraumatic Eyes: Pupils equal round and reactive to light extraocular movements intact ENT: TMs clear no hemotympanum no trauma Neck: Nontender full range of motion Cardiovascular: Regular rate rhythm no murmurs normal S1-S2 Respiratory: No distress clear to auscultation bilaterally chest nontender Abdomen: Soft nontender nondistended normal bowel sounds no masses Back: Nontender no CVA tenderness Extremities: Nontender active range of motion 4 extremities no trauma Skin: Normal color no trauma Neuro alert oriented cranial nerves II through XII intact normal strength sensation reflexes Test Results: [] Emergency Department Course and Treatment: [] Plan the patient appears to have a chronic cough but appears well. Her lungs are clear. I do not think this is infectious. However she was just started on a Z-Nick. She will continue this. Instructed to use Mucinex DM and liquid honey and Sudafed. She will follow-up as an outpatient. I do not feel she needs labs or imaging. Patient agrees. Treatment Plan: [] Disposition: [] Impression: [] Cough This note was generated with Procuricsation software. It may contain incorrect words, spelling, and punctuation that were not noted in review of the chart prior to signing ED Disposition - Plan for ED Patient: Chief Complaint: Cough Referrals: Sabrina Pena III, MD [Primary Care Provider] - What to do if you have Problems For any increased pain, shortness of breath, bleeding, nausea or vomiting, chest pain, or any unexpected problems, contact your Primary Care Provider. Call [facility] ([phone]) or report to the closest Emergency Room. Call 911 if necessary. 09/14/182301 <Electronically signed by Gil Ruano MD> Date Gil Ruano MD Cosigner Signature (If Indicated): Date CC: Sabrina Pena III, MD DISCHARGE INSTRUCTION Observed: 09/14/2018 Status: F Source: [place] 11:02 PM [facility] REPOSITORY [facility] Medical Records Department [address] [place] [id number] Discharge Instruction 09/14/182237 MR#: [id number] Acct: [id number] Name: LESLIE DE LEÓN Rep #: [id number] : 1975 43 From: Gil Ruano MD PCP: Sabrina Pena III, MD Status: DEP ER ED Disposition - Plan for ED Patient: Disposition: Home or Assisted Living Chief Complaint: Cough Instructions: ED Cough Chronic Cause Unkn Referrals: Sabrina Pena III, MD [Primary Care Provider] - What to do if you have Problems For any increased pain, shortness of breath, bleeding, nausea or vomiting, chest pain, or any unexpected problems, contact your Primary Care Provider. Call [facility] ([phone]) or report to the closest Emergency Room. Call 911 if necessary. 09/14/182301 <Electronically signed by Gil Ruano MD> Date Gil Ruano MD Cosigner Signature (If Indicated): Date CC: Sabrina Pena III, MD D-DIMER QUANTITATIVE Collected: 09/14/2018 Status: F Source: [place] (DVT/PE) 3:56 PM [facility] REPOSITORY TYPE CODE TESTS RESULT OUT OF RANGE REFERENCE UNITS LAB L300.8000 0.27-0.49 FEU/ug/m Low D-DIMER < 0.27 QUANT Result Comment: NORMAL D-Dimer level (<0.50) indicates no DVT or PE. NORMAL D-Dimer level (<0.50) indicates no DVT or PE. Performed By: #### L300.8000 #### [facility] Laboratory [facility] [place], [address] D DIMER Collected: 09/14/2018 Status: F Source: [place] 3:22 PM [facility] REPOSITORY TYPE CODE TESTS RESULT OUT OF REFERENCE UNITS RANGE LAB DDMER <500 ng/mL FEU Test D sent to [facility]. Result Comment: Account Credited ANJU ALCARAZ Observed: 09/14/2018 Status: COMPLETED Source: [place] 2:40 PM [facility] REPOSITORY Office Visit (FAMPWS) LESLIE DE LEÓN ([id number]) 1975 F Date Time Provider Department 09/14/18 2:40 PM MARVA WOODWARD ([facility]) FAMPWS During your visit today, we recorded the following information about you: Temperature Pulse Respiration Blood pressure 98.9 degrees 104/minute 14/minute 130/70 Weight 120.7 kg Marva Woodward APRN.CNP 09/14/2018 3:38 PM Signed 43 year old female with c/o URI sx over the last month. Refers that she has completed doxycycline and prednisone burst with no improvement. Had a normal chest xray. She does have a hx of PE after childbirth in the past. On her second trip to urgent care, since she was unresponsive to antibiotic and steroid, she was advised to consider ER to rule out PE if no improvement/worsening. She does admit to getting left sided chest pain -- that usually is worse when she lays down. She attributes this to her GERD. It is intermittent in nature and not currently present. She also reports getting intermittent back pain and neck pain -- which she attributes from the forceful coughing. Sore throat: No. Runny/stuffy nose: No. Postnasal drip: No. Throat clearing: No. Sinus pain/ pressure: No. Teeth pain: No. Headache Yes. Body aches Yes. Ear pain: Yes. Cough: Yes. Production: No. Fever: No -- + chills. Hx asthma Yes. Has COPD. Hx pneumonia Yes. Smoker: No. OTC meds tried: doxycycline, prednisone. Nyquil, delsym, advil cold and sinus, oils, cold exposure. Refers that she'll cough until near syncopal. Using advair daily. Using proair -- every 4 hours. ACTIVE PROBLEM LIST Hidradenitis Migraine With Aura and Without Status Migrainosus, Not Intractable Chronic Pelvic Pain in Female Acute Myopericarditis Incidental Lung Nodule, > 3mm and < 8mm Hot Flashes Morbid Obesity Due to Excess Calories (Hcc) Current Outpatient Prescriptions: sucralfate (CARAFATE) 1 gram tablet Take 1 tablet by mouth four times daily. Disp: Rfl: ranitidine (ZANTAC) 150 mg tablet Take 1 tablet by mouth twice daily. Disp: 60 tablet Rfl: 1 venlafaxine ER (EFFEXOR XR) 37.5 mg 24 hr capsule Take 1 capsule by mouth once daily. Disp: 30 capsule Rfl: 11 topiramate (TOPAMAX) 25 mg tablet Take 2 tablets by mouth twice daily. Disp: 60 tablet Rfl: 1 rizatriptan (MAXALT PROPELLANT CHARGE ZONE ASSEMBLER) 10 mg disintegrating tablet Take 1 tablet by mouth as needed. May repeat in 2 hours if needed, Maximum dose=30 mg/24 hours Disp: 10 tablet Rfl: 1 omeprazole (PRILOSEC) 20 mg capsule Take 1 capsule by mouth daily before breakfast. 1/2 hr before meal. Disp: 90 capsule Rfl: 1 hydroCHLOROthiazide (HYDRODIURIL, ESIDRIX) 25 mg tablet Take 1 tablet by mouth once daily. Disp: 90 tablet Rfl: 3 fluticasone-salmeterol (ADVAIR DISKUS) 100-50 mcg/dose dsdv Inhale 1 Puff as instructed twice daily. Rinse mouth out after use with water. Disp: 1 Inhaler Rfl: 1 albuterol HFA (PROAIR HFA) 90 mcg/actuation inhaler Inhale 2 Puffs as instructed every 4 hours as needed. Disp: 1 Inhaler Rfl: 0 citalopram (CELEXA) 20 mg tablet Take 1.5 tablets by mouth once daily. Disp: 45 tablet Rfl: 13 No current facility-administered medications for this visit. OBJECTIVE: BP 130/70 (BP Site: Left Arm, BP Position: Sitting, BP Cuff Size: Large Adult) Pulse 104 Temp 37.2 ?C (98.9 ?F) (Left Tympanic) Resp 14 Wt 120.7 kg (266 lb) LMP 10/13/2011 SpO2 100% BMI 45.66 kg/m? General Appearance: Well appearing, alert, in no acute distress, well-hydrated, well nourished.. Skin: Skin color, texture, turgor normal, no suspicious rashes or lesions. Head: Normocephalic, no masses, lesions, tenderness or abnormalities. Eyes: Anicteric sclera. Extraocular movements are intact. . Ears: External ears normal, canals clear, Normal TMs bilaterally. Nose/Sinuses: Nares normal, septum midline, mucosa normal, no drainage or sinus tenderness. Oropharynx: Lips, mucosa, and tongue normal, teeth and gums normal, oropharynx normal. Neck: Supple, no adenopathy; thyroid symmetric, normal size, no bruits. Lungs: lungs clear to auscultation. No wheezing, rhonchi, rales. Heart: RRR without murmur, gallop, or rubs. No ectopy. Unable to reproduce chest/back pain. Neurologic: Gait normal. ASSESSMENT/PLAN: 1. Chronic obstructive pulmonary disease, unspecified COPD type (HCC) - ICD9: 496, ICD10: J44.9 (primary diagnosis) Seems to be more consistent with a persistent exacerbation of COPD/bronchitis. She is a little tachycardic. No pain at present. Oxygenating well. However, because symptoms have been been resistant to treatment, discussed other causes, such as PE. She is reluctant to go to the ER d/t costs. She is agreeable to D. Dimer, which she is aware, if positive, will result in ER visit. Will start z-pack. Hold citalopram while on this. Will start a prednisone taper. Will raise dose of advair inhaler. Pt agreeable to plan. 2. Cough - ICD9: 786.2, ICD10: R05 - D-DIMER - PREDNISONE 10 MG TABLET - AZITHROMYCIN 250 MG TABLET - FLUTICASONE 250 MCG-SALMETEROL 50 MCG/DOSE BLISTR POWDR FOR INHALATION 3. SOB (shortness of breath) - ICD9: 786.05, ICD10: R06.02 - D-DIMER - PREDNISONE 10 MG TABLET - AZITHROMYCIN 250 MG TABLET - FLUTICASONE 250 MCG-SALMETEROL 50 MCG/DOSE BLISTR POWDR FOR INHALATION Discussed treatment plan and patient voices understanding. Patient's questions answered appropriately. Medications and potential side effects were discussed and patient voices understanding. Return to the office as scheduled or as needed for worsening/no improvement. Marva Woodward APRN.LEONIE Woodward APRN.CNP 09/14/2018 3:02 PM Signed 1. Labs today. 2. Prednisone taper. 3. Start the zithromax. 4. Hold the citalopram while on the zithromax. 5. If any worsening pain/SOB -- to the ER. Referring Provider: SELF [200] Allergies As of Date: 09/14/2018 Noted Allergy Reaction PENICILLINS 07/02/2005 4 - Hives TRAMADOL 01/30/2008 11 - Vomiting Date Reviewed: 09/14/2018 Reviewed by: Laila Morris Timber Appraiser - Fully Assessed Reason for Visit: URI [115] Cmt: X 1 month Primary Visit Diagnosis:Chronic obstructive pulmonary disease, unspecified COPD type (HCC) [J44.9] Other Visit Diagnoses:Cough [R05] SOB (shortness of breath) [R06.02] Order(s):D-DIMER [SQDDMER] Order #: [id number] FUTURE predniSONE (DELTASONE) 10 mg tabletTake 4 tabs daily x 3 days, then 3 tabs x 3 days, 2 tabs x 3 days, then 1 tab x3 days with food.Disp: 30 tabletRfl: 0 azithromycin (ZITHROMAX Z-NICK) 250 mg tabletTake 2 tablets day one, then, 1 tablet daily until gone.Disp: 1 PackageRfl: 0 fluticasone-salmeterol (ADVAIR DISKUS) 250-50 mcg/dose dsdvInhale 1 Puff as instructed twice daily. Rinse and gargle mouth after use with water.Disp: 1 InhalerRfl: 1 Prescriptions as of 09/14/2018 Sig: SUCRALFATE 1 GRAM TABLET Take 1 tablet by mouth four t* RANITIDINE 150 MG TABLET Take 1 tablet by mouth twice * VENLAFAXINE ER 37.5 MG CAPSUL* Take 1 capsule by mouth once * TOPIRAMATE 25 MG TABLET Take 2 tablets by mouth twice* RIZATRIPTAN 10 MG DISINTEGRAT* Take 1 tablet by mouth as nee* OMEPRAZOLE 20 MG CAPSULE,MIGUEL ANGEL* Take 1 capsule by mouth daily* HYDROCHLOROTHIAZIDE 25 MG TAB* Take 1 tablet by mouth once d* ALBUTEROL SULFATE HFA 90 MCG/* Inhale 2 Puffs as instructed * CITALOPRAM 20 MG TABLET Take 1.5 tablets by mouth onc* PREDNISONE 10 MG TABLET Take 4 tabs daily x 3 days, t* AZITHROMYCIN 250 MG TABLET Take 2 tablets day one, then,* FLUTICASONE 250 MCG-SALMETERO* Inhale 1 Puff as instructed t* Problem List As Of Date 09/14/2018 Noted Resolved Calculus of kidney [N20.0] INVALID FOR*03/28/2014 HIDRADENITIS [L73.2] INVALID FOR* Unspecified asthma(493.90) [J45.909] 03/28/2014 More... Hypopotassemia [E87.6] INVALID FOR*03/28/2014 Biliary dyskinesia [K82.8] INVALID FOR*03/28/2014 Acute myopericarditis [I30.9] INVALID FOR*03/28/2014 Migraine with aura and without status migrainos*INVALID FOR* Chronic pelvic pain in female [R10.2, G89.29] INVALID FOR* Acute myopericarditis [I30.9] INVALID FOR* Incidental lung nodule, > 3mm and < 8mm [R91.1] INVALID FOR* More... Hot flashes [R23.2] INVALID FOR* Morbid obesity due to excess calories (HCC) [E6*INVALID FOR* Other instructions from your clinician: 1. Labs today. 2. Prednisone taper. 3. Start the zithromax. 4. Hold the citalopram while on the zithromax. 5. If any worsening pain/SOB -- to the ER. Prescriptions ordered this encounter Disp Refills Start End PREDNISONE 10 MG TABLET 30 t* 0 09/14/2018 09/26/2018 Sig: Take 4 tabs daily x 3 days, then 3 tabs x 3 days, 2 tabs x 3 days, then 1 tab x3 days with food. AZITHROMYCIN 250 MG TABLET 1 Pa* 0 09/14/2018 09/19/2018 Sig: Take 2 tablets day one, then, 1 tablet daily until gone. FLUTICASONE 250 MCG-SALMETEROL 50 MC* 1 In* 1 09/14/2018 Route: INHALATION Sig: Inhale 1 Puff as instructed twice daily. Rinse and gargle mouth after use with water. Medications Discontinued During This Encounter meclizine (ANTIVERT) 12.5 mg tab 20 t* 0 07/18/2018 09/14/2018 Route: ORAL Sig: Take 1 tablet by mouth every 6 hours as needed (dizziness). Disc: Course of therapy completed ketorolac (TORADOL) 10 mg tablet 20 t* 0 03/21/2018 09/14/2018 Route: ORAL Sig: Take 1 tablet by mouth every 6 hours as needed. Has tolerated Toradol injection in office. Disc: Course of therapy completed LORazepam (ATIVAN) 0.5 mg tab 20 t* 0 09/23/2017 09/14/2018 Class: Call Rx Route: ORAL Sig: Take 1 tablet by mouth twice daily as needed (anxiety). Disc: Course of therapy completed promethazine (PHENERGAN) 12.5 mg tab* 30 t* 0 09/21/2017 09/14/2018 Route: ORAL Sig: Take 1 tablet by mouth every 6 hours as needed. Disc: Course of therapy completed NIFEdipine ER (PROCARDIA XL) 30 mg 2* 30 t* 0 03/12/2017 09/14/2018 Route: ORAL Sig: Take 1 tablet by mouth once daily. Disc: Course of therapy completed metroNIDAZOLE (METROGEL VAGINAL) 0.7* 1 Tu* 5 12/24/2016 09/14/2018 Sig: Twice weekly vaginally x 6 months after initial course of flagyl Disc: Course of therapy completed fluticasone (FLONASE) 50 mcg/actuati* 1 Allen* 0 09/18/2016 09/14/2018 Route: EACH NOSTRIL Sig: Use 2 Sprays in each nostril once daily. Disc: Course of therapy completed fluticasone-salmeterol (ADVAIR DISKU* 1 In* 1 12/17/2017 09/14/2018 Route: INHALATION Sig: Inhale 1 Puff as instructed twice daily. Rinse mouth out after use with water. Disc: Dosage adjustment Encounter Status:Closed by MARVA WOODWARD CNP on 09/14/18 PROGRESS Observed: 09/14/2018 Status: COMPLETED Source: [place] 2:34 PM [facility] HNO ID: [id number] Author: Marva Park) Crissy Service: (none) Author Type: Nurse Practitioner Type: Progress Notes Filed: 09/14/2018 3:38 PM Note Text: 43 year old female with c/o URI sx over the last month. Refers that she has completed doxycycline and prednisone burst with no improvement. Had a normal chest xray. She does have a hx of PE after childbirth in the past. On her second trip to urgent care, since she was unresponsive to antibiotic and steroid, she was advised to consider ER to rule out PE if no improvement/worsening. She does admit to getting left sided chest pain -- that usually is worse when she lays down. She attributes this to her GERD. It is intermittent in nature and not currently present. She also reports getting intermittent back pain and neck pain -- which she attributes from the forceful coughing. Sore throat: No. Runny/stuffy nose: No. Postnasal drip: No. Throat clearing: No. Sinus pain/ pressure: No. Teeth pain: No. Headache Yes. Body aches Yes. Ear pain: Yes. Cough: Yes. Production: No. Fever: No -- + chills. Hx asthma Yes. Has COPD. Hx pneumonia Yes. Smoker: No. OTC meds tried: doxycycline, prednisone. Nyquil, delsym, advil cold and sinus, oils, cold exposure. Refers that she'll cough until near syncopal. Using advair daily. Using proair -- every 4 hours. ACTIVE PROBLEM LIST Hidradenitis Migraine With Aura and Without Status Migrainosus, Not Intractable Chronic Pelvic Pain in Female Acute Myopericarditis Incidental Lung Nodule, > 3mm and < 8mm Hot Flashes Morbid Obesity Due to Excess Calories (Hcc) Current Outpatient Prescriptions: sucralfate (CARAFATE) 1 gram tablet Take 1 tablet by mouth four times daily. Disp: Rfl: ranitidine (ZANTAC) 150 mg tablet Take 1 tablet by mouth twice daily. Disp: 60 tablet Rfl: 1 venlafaxine ER (EFFEXOR XR) 37.5 mg 24 hr capsule Take 1 capsule by mouth once daily. Disp: 30 capsule Rfl: 11 topiramate (TOPAMAX) 25 mg tablet Take 2 tablets by mouth twice daily. Disp: 60 tablet Rfl: 1 rizatriptan (MAXALT PROPELLANT CHARGE ZONE ASSEMBLER) 10 mg disintegrating tablet Take 1 tablet by mouth as needed. May repeat in 2 hours if needed, Maximum dose=30 mg/24 hours Disp: 10 tablet Rfl: 1 omeprazole (PRILOSEC) 20 mg capsule Take 1 capsule by mouth daily before breakfast. 1/2 hr before meal. Disp: 90 capsule Rfl: 1 hydroCHLOROthiazide (HYDRODIURIL, ESIDRIX) 25 mg tablet Take 1 tablet by mouth once daily. Disp: 90 tablet Rfl: 3 fluticasone-salmeterol (ADVAIR DISKUS) 100-50 mcg/dose dsdv Inhale 1 Puff as instructed twice daily. Rinse mouth out after use with water. Disp: 1 Inhaler Rfl: 1 albuterol HFA (PROAIR HFA) 90 mcg/actuation inhaler Inhale 2 Puffs as instructed every 4 hours as needed. Disp: 1 Inhaler Rfl: 0 citalopram (CELEXA) 20 mg tablet Take 1.5 tablets by mouth once daily. Disp: 45 tablet Rfl: 13 No current facility-administered medications for this visit. OBJECTIVE: BP 130/70 (BP Site: Left Arm, BP Position: Sitting, BP Cuff Size: Large Adult) Pulse 104 Temp 37.2 ?C (98.9 ?F) (Left Tympanic) Resp 14 Wt 120.7 kg (266 lb) LMP 10/13/2011 SpO2 100% BMI 45.66 kg/m? General Appearance: Well appearing, alert, in no acute distress, well-hydrated, well nourished.. Skin: Skin color, texture, turgor normal, no suspicious rashes or lesions. Head: Normocephalic, no masses, lesions, tenderness or abnormalities. Eyes: Anicteric sclera. Extraocular movements are intact. . Ears: External ears normal, canals clear, Normal TMs bilaterally. Nose/Sinuses: Nares normal, septum midline, mucosa normal, no drainage or sinus tenderness. Oropharynx: Lips, mucosa, and tongue normal, teeth and gums normal, oropharynx normal. Neck: Supple, no adenopathy; thyroid symmetric, normal size, no bruits. Lungs: lungs clear to auscultation. No wheezing, rhonchi, rales. Heart: RRR without murmur, gallop, or rubs. No ectopy. Unable to reproduce chest/back pain. Neurologic: Gait normal. ASSESSMENT/PLAN: 1. Chronic obstructive pulmonary disease, unspecified COPD type (HCC) - ICD9: 496, ICD10: J44.9 (primary diagnosis) Seems to be more consistent with a persistent exacerbation of COPD/bronchitis. She is a little tachycardic. No pain at present. Oxygenating well. However, because symptoms have been been resistant to treatment, discussed other causes, such as PE. She is reluctant to go to the ER d/t costs. She is agreeable to D. Dimer, which she is aware, if positive, will result in ER visit. Will start z-pack. Hold citalopram while on this. Will start a prednisone taper. Will raise dose of advair inhaler. Pt agreeable to plan. 2. Cough - ICD9: 786.2, ICD10: R05 - D-DIMER - PREDNISONE 10 MG TABLET - AZITHROMYCIN 250 MG TABLET - FLUTICASONE 250 MCG-SALMETEROL 50 MCG/DOSE BLISTR POWDR FOR INHALATION 3. SOB (shortness of breath) - ICD9: 786.05, ICD10: R06.02 - D-DIMER - PREDNISONE 10 MG TABLET - AZITHROMYCIN 250 MG TABLET - FLUTICASONE 250 MCG-SALMETEROL 50 MCG/DOSE BLISTR POWDR FOR INHALATION Discussed treatment plan and patient voices understanding. Patient's questions answered appropriately. Medications and potential side effects were discussed and patient voices understanding. Return to the office as scheduled or as needed for worsening/no improvement. Marva Woodward APRN.LEONIE PEREZ Observed: 09/14/2018 Status: COMPLETED Source: [place] 12:00 AM [facility] LESLIE DE LEÓN ([id number]) 1975 F Date Time Provider Department 09/14/18 [facility] During your visit today, we recorded the following information about you: Marva Woodward APRN.CNP 09/14/2018 4:32 PM Addendum Phone call to [facility] and received negative d - dimer results -- < 0.27 ( 0.27-0.49). Phone call to patient and she is aware. Encouraged to call if no improvement/worsening. Pt agreeable to plan. Marva Woodward APRN.CNP Allergies As of Date: 09/14/2018 Noted Allergy Reaction PENICILLINS 07/02/2005 4 - Hives TRAMADOL 01/30/2008 11 - Vomiting Date Reviewed: 09/14/2018 Reviewed by: Laila Morris Timber Appraiser - Fully Assessed Reason for Visit: Results [95] Prescriptions as of 09/14/2018 Sig: PREDNISONE 10 MG TABLET Take 4 tabs daily x 3 days, t* AZITHROMYCIN 250 MG TABLET Take 2 tablets day one, then,* FLUTICASONE 250 MCG-SALMETERO* Inhale 1 Puff as instructed t* SUCRALFATE 1 GRAM TABLET Take 1 tablet by mouth four t* RANITIDINE 150 MG TABLET Take 1 tablet by mouth twice * VENLAFAXINE ER 37.5 MG CAPSUL* Take 1 capsule by mouth once * TOPIRAMATE 25 MG TABLET Take 2 tablets by mouth twice* RIZATRIPTAN 10 MG DISINTEGRAT* Take 1 tablet by mouth as nee* OMEPRAZOLE 20 MG CAPSULE,MIGUEL ANGEL* Take 1 capsule by mouth daily* HYDROCHLOROTHIAZIDE 25 MG TAB* Take 1 tablet by mouth once d* ALBUTEROL SULFATE HFA 90 MCG/* Inhale 2 Puffs as instructed * CITALOPRAM 20 MG TABLET Take 1.5 tablets by mouth onc* Problem List As Of Date 09/14/2018 Noted Resolved Calculus of kidney [N20.0] INVALID FOR*03/28/2014 HIDRADENITIS [L73.2] INVALID FOR* Unspecified asthma(493.90) [J45.909] 03/28/2014 More... Hypopotassemia [E87.6] INVALID FOR*03/28/2014 Biliary dyskinesia [K82.8] INVALID FOR*03/28/2014 Acute myopericarditis [I30.9] INVALID FOR*03/28/2014 Migraine with aura and without status migrainos*INVALID FOR* Chronic pelvic pain in female [R10.2, G89.29] INVALID FOR* Acute myopericarditis [I30.9] INVALID FOR* Incidental lung nodule, > 3mm and < 8mm [R91.1] INVALID FOR* More... Hot flashes [R23.2] INVALID FOR* Morbid obesity due to excess calories (HCC) [E6*INVALID FOR* Encounter Status:Closed by MARVA WOODWARD LEAD OPERATOR on 09/14/18 XR CHEST 2V FRONTAL/LAT Observed: 08/31/2018 Status: F Source: [place] 11:06 AM [facility] * * *Final Report* * * DATE OF EXAM: Aug 31 2018 11:06AM WOX [id number] - XR CHEST 2V FRONTAL/LAT / PROCEDURE REASON: multiple diagnoses * * * * Physician Interpretation * * * * EXAMINATION: CHEST RADIOGRAPH (2 VIEW FRONTAL and LATERAL) CLINICAL HISTORY: SOB (shortness of breath) Cough MQ: XC2_5 Comparison: 12/17/2017 and 03/08/2015 RESULT: Lines, tubes, and devices: None. Lungs and pleura: No consolidation. No lung mass. No pleural effusion. Cardiomediastinal silhouette: Normal cardiomediastinal silhouette. Other: . IMPRESSION: No acute radiographic abnormality. Row Boss Hoeing: MATEO Transcribe Date/Time: Aug 31 2018 1:12P Dictated by : EUGENE DENTON MD This examination was interpreted and the report reviewed and electronically signed by: EUGENE DENTON MD on Aug 31 2018 1:13PM EST [id number] PROGRESS Observed: 08/31/2018 Status: COMPLETED Source: [place] 10:53 AM [facility] HNO ID: [id number] Author: Fatemeh Shelton (Rt) Alana Kwon Service: (none) Author Type: Rn Unit Manager Type: Progress Notes Filed: 08/31/2018 11:06 AM Note Text: Radiology Service Progress Note PATIENT NAME: Leslie De León DATE OF SERVICE: August 31, 2018 TIME: 10:53 AM PATIENT IDENTITY VERIFICATION COMPLETED USING TWO (2) METHODS: Patient confirmed name verbally and Date of . PATIENT GENDER DATA: Female. status: : No status: NO. PATIENT RELEVANT IMPLANT DATA REVIEWED: Not Applicable RADIOLOGY DEPARTMENT: General X-ray: Exam(s) Completed: Chest X-Ray PERIPHERAL IV DATA: Not applicable SIGNED BY: RT Adis August 31, 2018 10:53 AM PROGRESS Observed: 08/31/2018 Status: COMPLETED Source: [place] 10:40 AM [facility] HNO ID: [id number] Author: Jose Park Service: (none) Author Type: Physician Type: Progress Notes Filed: 08/31/2018 11:23 AM Note Text: Patient presents with: cough and congestion: x 1.5 weeks-was just seen here and given medication but she is not getting any better HPI: Feeling sick for almost 2 weeks. Dx with COPD exacerbation here 2 days ago and treated with doxycycline and prednisone. Positive symptoms: cough (trouble producing), Shortness of breath, Chest heaviness, back hurts (mid), hot/chilled, Negative symptoms: Sore throat, Earache, Sinus pressure, Nasal Congestion, Rhinorrhea, OTC: Nyquil. Albuterol, advair. Hx of COPD, pneumonia, and PE. PAST MEDICAL HISTORY Diagnosis Date - Abnormal glandular Papanicolaou smear of cervix Abn. Pap smear (cervix) - Acute myopericarditis 2011 cardiomyopathy - Dysthymic disorder Depression (non-psychotic) - Hypertension - Incidental lung nodule, > 3mm and < 8mm 03/24/2017 03/17/17: 7.5 mm nodule RLL - Migraine with aura and without status migrainosus, not intractable 01/09/2016 - Morbid obesity due to excess calories (HCC) 03/24/2017 - Protein S deficiency (HCC) - Pulmonary embolus (HCC) 2007 left lung, after delivery with cardiomyopathy - RLL pneumonia (HCC) 03/10/2017 - Unspecified asthma(493.90) - Urinary calculus, unspecified 2004 Renal stones MEDICATIONS: Current Outpatient Prescriptions: doxycycline monohydrate (MONODOX) 100 mg capsule Take 1 capsule by mouth twice daily for 10 days. predniSONE (DELTASONE) 20 mg tablet Take 2 tablets by mouth once daily for 5 days. meclizine (ANTIVERT) 12.5 mg tab Take 1 tablet by mouth every 6 hours as needed (dizziness). sucralfate (CARAFATE) 1 gram tablet Take 1 tablet by mouth four times daily. ranitidine (ZANTAC) 150 mg tablet Take 1 tablet by mouth twice daily. venlafaxine ER (EFFEXOR XR) 37.5 mg 24 hr capsule Take 1 capsule by mouth once daily. topiramate (TOPAMAX) 25 mg tablet Take 2 tablets by mouth twice daily. rizatriptan (MAXALT PROPELLANT CHARGE ZONE ASSEMBLER) 10 mg disintegrating tablet Take 1 tablet by mouth as needed. May repeat in 2 hours if needed, Maximum dose=30 mg/24 hours ketorolac (TORADOL) 10 mg tablet Take 1 tablet by mouth every 6 hours as needed. Has tolerated Toradol injection in office. omeprazole (PRILOSEC) 20 mg capsule Take 1 capsule by mouth daily before breakfast. 1/2 hr before meal. hydroCHLOROthiazide (HYDRODIURIL, ESIDRIX) 25 mg tablet Take 1 tablet by mouth once daily. fluticasone-salmeterol (ADVAIR DISKUS) 100-50 mcg/dose dsdv Inhale 1 Puff as instructed twice daily. Rinse mouth out after use with water. albuterol HFA (PROAIR HFA) 90 mcg/actuation inhaler Inhale 2 Puffs as instructed every 4 hours as needed. LORazepam (ATIVAN) 0.5 mg tab Take 1 tablet by mouth twice daily as needed (anxiety). citalopram (CELEXA) 20 mg tablet Take 1.5 tablets by mouth once daily. promethazine (PHENERGAN) 12.5 mg tablet Take 1 tablet by mouth every 6 hours as needed. NIFEdipine ER (PROCARDIA XL) 30 mg 24 hr tablet Take 1 tablet by mouth once daily. metroNIDAZOLE (METROGEL VAGINAL) 0.75 % Vaginal Gel Twice weekly vaginally x 6 months after initial course of flagyl fluticasone (FLONASE) 50 mcg/actuation nasal spray Use 2 Sprays in each nostril once daily. No current facility-administered medications for this visit. ALLERGIES: ALLERGIES Allergen Reactions - Penicillins Hives - Tramadol Vomiting VITALS: BP 122/84 Pulse 90 Temp 37.1 ?C (98.7 ?F) (Tympanic) Resp 16 Wt 119 kg (262 lb 6.4 oz) LMP 10/13/2011 SpO2 96% BMI 45.04 kg/m? PHYSICAL EXAM: GEN: alert, in no distress HEENT: PERRL, EOMI, conjunctiva clear Ears: canals clear, TMs without erythema, bulge, or effusion Sinuses: non-tender frontal sinus, non-tender maxillary sinuses Throat: moist mucous membranes, no erythema, no exudate Neck: supple, no thyromegaly, no lymphadenopathy HEART: regular rate and rhythm, no murmurs LUNGS: R>L wheezes or crackles, no increased WOB ASSESSMENT/PLAN: 1. SOB (shortness of breath) - ICD9: 786.05, ICD10: R06.02 (primary diagnosis) 2. Cough - ICD9: 786.2, ICD10: R05 3. History of pulmonary embolism - ICD9: V12.55, ICD10: Z86.711 - XR CHEST 2V FRONTAL/LAT - no acute pneumonia. Continue current regimen. Discussed PE as a possible cause of back pain and shortness of breath not responsive to antibiotic and steroid. Further workup for PE would need to be done in the ER. It seems more like COPD flare than PE to her and me, but she agrees to f/u in the ER with worsening symptoms or failure to improve. Jose Park MD CNOV Observed: 08/31/2018 Status: COMPLETED Source: [place] 10:30 AM [facility] Office Visit ([facility]) SARTHAKLESLIE ([id number]) 1975 F Date Time Provider Department 08/31/18 10:30 AM [facility] During your visit today, we recorded the following information about you: Temperature Pulse Respiration Blood pressure 98.7 degrees 90/minute 16/minute 122/84 Weight 119 kg Jose Park MD 08/31/2018 11:23 AM Signed Patient presents with: cough and congestion: x 1.5 weeks-was just seen here and given medication but she is not getting any better HPI: Feeling sick for almost 2 weeks. Dx with COPD exacerbation here 2 days ago and treated with doxycycline and prednisone. Positive symptoms: cough (trouble producing), Shortness of breath, Chest heaviness, back hurts (mid), hot/chilled, Negative symptoms: Sore throat, Earache, Sinus pressure, Nasal Congestion, Rhinorrhea, OTC: Nyquil. Albuterol, advair. Hx of COPD, pneumonia, and PE. PAST MEDICAL HISTORY Diagnosis Date - Abnormal glandular Papanicolaou smear of cervix Abn. Pap smear (cervix) - Acute myopericarditis 2011 cardiomyopathy - Dysthymic disorder Depression (non-psychotic) - Hypertension - Incidental lung nodule, > 3mm and < 8mm 03/24/2017 03/17/17: 7.5 mm nodule RLL - Migraine with aura and without status migrainosus, not intractable 01/09/2016 - Morbid obesity due to excess calories (HCC) 03/24/2017 - Protein S deficiency (HCC) - Pulmonary embolus (HCC) 2007 left lung, after delivery with cardiomyopathy - RLL pneumonia (HCC) 03/10/2017 - Unspecified asthma(493.90) - Urinary calculus, unspecified 2004 Renal stones MEDICATIONS: Current Outpatient Prescriptions: doxycycline monohydrate (MONODOX) 100 mg capsule Take 1 capsule by mouth twice daily for 10 days. predniSONE (DELTASONE) 20 mg tablet Take 2 tablets by mouth once daily for 5 days. meclizine (ANTIVERT) 12.5 mg tab Take 1 tablet by mouth every 6 hours as needed (dizziness). sucralfate (CARAFATE) 1 gram tablet Take 1 tablet by mouth four times daily. ranitidine (ZANTAC) 150 mg tablet Take 1 tablet by mouth twice daily. venlafaxine ER (EFFEXOR XR) 37.5 mg 24 hr capsule Take 1 capsule by mouth once daily. topiramate (TOPAMAX) 25 mg tablet Take 2 tablets by mouth twice daily. rizatriptan (MAXALT PROPELLANT CHARGE ZONE ASSEMBLER) 10 mg disintegrating tablet Take 1 tablet by mouth as needed. May repeat in 2 hours if needed, Maximum dose=30 mg/24 hours ketorolac (TORADOL) 10 mg tablet Take 1 tablet by mouth every 6 hours as needed. Has tolerated Toradol injection in office. omeprazole (PRILOSEC) 20 mg capsule Take 1 capsule by mouth daily before breakfast. 1/2 hr before meal. hydroCHLOROthiazide (HYDRODIURIL, ESIDRIX) 25 mg tablet Take 1 tablet by mouth once daily. fluticasone-salmeterol (ADVAIR DISKUS) 100-50 mcg/dose dsdv Inhale 1 Puff as instructed twice daily. Rinse mouth out after use with water. albuterol HFA (PROAIR HFA) 90 mcg/actuation inhaler Inhale 2 Puffs as instructed every 4 hours as needed. LORazepam (ATIVAN) 0.5 mg tab Take 1 tablet by mouth twice daily as needed (anxiety). citalopram (CELEXA) 20 mg tablet Take 1.5 tablets by mouth once daily. promethazine (PHENERGAN) 12.5 mg tablet Take 1 tablet by mouth every 6 hours as needed. NIFEdipine ER (PROCARDIA XL) 30 mg 24 hr tablet Take 1 tablet by mouth once daily. metroNIDAZOLE (METROGEL VAGINAL) 0.75 % Vaginal Gel Twice weekly vaginally x 6 months after initial course of flagyl fluticasone (FLONASE) 50 mcg/actuation nasal spray Use 2 Sprays in each nostril once daily. No current facility-administered medications for this visit. ALLERGIES: ALLERGIES Allergen Reactions - Penicillins Hives - Tramadol Vomiting VITALS: BP 122/84 Pulse 90 Temp 37.1 ?C (98.7 ?F) (Tympanic) Resp 16 Wt 119 kg (262 lb 6.4 oz) LMP 10/13/2011 SpO2 96% BMI 45.04 kg/m? PHYSICAL EXAM: GEN: alert, in no distress HEENT: PERRL, EOMI, conjunctiva clear Ears: canals clear, TMs without erythema, bulge, or effusion Sinuses: non-tender frontal sinus, non-tender maxillary sinuses Throat: moist mucous membranes, no erythema, no exudate Neck: supple, no thyromegaly, no lymphadenopathy HEART: regular rate and rhythm, no murmurs LUNGS: R>L wheezes or crackles, no increased WOB ASSESSMENT/PLAN: 1. SOB (shortness of breath) - ICD9: 786.05, ICD10: R06.02 (primary diagnosis) 2. Cough - ICD9: 786.2, ICD10: R05 3. History of pulmonary embolism - ICD9: V12.55, ICD10: Z86.711 - XR CHEST 2V FRONTAL/LAT - no acute pneumonia. Continue current regimen. Discussed PE as a possible cause of back pain and shortness of breath not responsive to antibiotic and steroid. Further workup for PE would need to be done in the ER. It seems more like COPD flare than PE to her and me, but she agrees to f/u in the ER with worsening symptoms or failure to improve. Jose Park MD Referring Provider: SELF [[id number]] Allergies As of Date: 08/31/2018 Noted Allergy Reaction PENICILLINS 07/02/2005 4 - Hives TRAMADOL 01/30/2008 11 - Vomiting Date Reviewed: 08/31/2018 Reviewed by: Dora Ochoa LPN - Fully Assessed Reason for Visit: cough and congestion [Other] Cmt: x 1.5 weeks-was just seen here and given medication but she is not getting any better Primary Visit Diagnosis:SOB (shortness of breath) [R06.02] Other Visit Diagnoses:Cough [R05] History of pulmonary embolism [Z86.711] Order(s):XR CHEST 2V FRONTAL/LAT [[id number]] Order #: [id number] FUTURE Prescriptions as of 08/31/2018 Sig: DOXYCYCLINE MONOHYDRATE 100 M* Take 1 capsule by mouth twice* PREDNISONE 20 MG TABLET Take 2 tablets by mouth once * MECLIZINE 12.5 MG TABLET Take 1 tablet by mouth every * SUCRALFATE 1 GRAM TABLET Take 1 tablet by mouth four t* RANITIDINE 150 MG TABLET Take 1 tablet by mouth twice * VENLAFAXINE ER 37.5 MG CAPSUL* Take 1 capsule by mouth once * TOPIRAMATE 25 MG TABLET Take 2 tablets by mouth twice* RIZATRIPTAN 10 MG DISINTEGRAT* Take 1 tablet by mouth as nee* KETOROLAC 10 MG TABLET Take 1 tablet by mouth every * OMEPRAZOLE 20 MG CAPSULE,MIGUEL ANGEL* Take 1 capsule by mouth daily* HYDROCHLOROTHIAZIDE 25 MG TAB* Take 1 tablet by mouth once d* FLUTICASONE 100 MCG-SALMETERO* Inhale 1 Puff as instructed t* ALBUTEROL SULFATE HFA 90 MCG/* Inhale 2 Puffs as instructed * LORAZEPAM 0.5 MG TABLET Take 1 tablet by mouth twice * CITALOPRAM 20 MG TABLET Take 1.5 tablets by mouth onc* PROMETHAZINE 12.5 MG TABLET Take 1 tablet by mouth every * NIFEDIPINE ER 30 MG TABLET,EX* Take 1 tablet by mouth once d* METRONIDAZOLE 0.75 % VAGINAL * Twice weekly vaginally x 6 mo* FLUTICASONE 50 MCG/ACTUATION * Use 2 Sprays in each nostril * Problem List As Of Date 08/31/2018 Noted Resolved Calculus of kidney [N20.0] INVALID FOR*03/28/2014 HIDRADENITIS [L73.2] INVALID FOR* Unspecified asthma(493.90) [J45.909] 03/28/2014 More... Hypopotassemia [E87.6] INVALID FOR*03/28/2014 Biliary dyskinesia [K82.8] INVALID FOR*03/28/2014 Acute myopericarditis [I30.9] INVALID FOR*03/28/2014 Migraine with aura and without status migrainos*INVALID FOR* Chronic pelvic pain in female [R10.2, G89.29] INVALID FOR* Acute myopericarditis [I30.9] INVALID FOR* Incidental lung nodule, > 3mm and < 8mm [R91.1] INVALID FOR* More... Hot flashes [R23.2] INVALID FOR* Morbid obesity due to excess calories (HCC) [E6*INVALID FOR* Encounter Status:Closed by JOSE PARK MD on 08/31/18 PROGRESS Observed: 08/29/2018 Status: COMPLETED Source: [place] 1:55 PM [facility] REPOSITORY HNO ID: [id number] Author: Taylor Harrell Service: (none) Author Type: Physician Income Tax Return Preparer Type: Progress Notes Filed: 08/29/2018 2:25 PM Note Text: 08/29/2018 Patient presents with: URI: x 1 week SUBJECTIVE: This is a 43 year old that is here today for Complaint(s) of cough and chest congestion 1.5 weeks. + SOB/wheezing worse than baseline. PMH of COPD. Former smoker. + diarrhea . + BORDEN intermittent. Cough productive in the morning. Has used inhalers, OTC cough/cold meds and tessalon without relief. + fatigue and diminished appetite. Denies fever, vomiting, nasal congestion PAST MEDICAL HISTORY Diagnosis Date - Abnormal glandular Papanicolaou smear of cervix Abn. Pap smear (cervix) - Acute myopericarditis 2011 cardiomyopathy - Dysthymic disorder Depression (non-psychotic) - Hypertension - Incidental lung nodule, > 3mm and < 8mm 03/24/2017 03/17/17: 7.5 mm nodule RLL - Migraine with aura and without status migrainosus, not intractable 01/09/2016 - Morbid obesity due to excess calories (HCC) 03/24/2017 - Protein S deficiency (HCC) - Pulmonary embolus (HCC) 2007 left lung, after delivery with cardiomyopathy - RLL pneumonia (HCC) 03/10/2017 - Unspecified asthma(493.90) - Urinary calculus, unspecified 2004 Renal stones ALLERGIES Penicillins; Tramadol MEDICATIONS Current Outpatient Prescriptions: meclizine (ANTIVERT) 12.5 mg tab Take 1 tablet by mouth every 6 hours as needed (dizziness). sucralfate (CARAFATE) 1 gram tablet Take 1 tablet by mouth four times daily. ranitidine (ZANTAC) 150 mg tablet Take 1 tablet by mouth twice daily. venlafaxine ER (EFFEXOR XR) 37.5 mg 24 hr capsule Take 1 capsule by mouth once daily. topiramate (TOPAMAX) 25 mg tablet Take 2 tablets by mouth twice daily. rizatriptan (MAXALT PROPELLANT CHARGE ZONE ASSEMBLER) 10 mg disintegrating tablet Take 1 tablet by mouth as needed. May repeat in 2 hours if needed, Maximum dose=30 mg/24 hours ketorolac (TORADOL) 10 mg tablet Take 1 tablet by mouth every 6 hours as needed. Has tolerated Toradol injection in office. omeprazole (PRILOSEC) 20 mg capsule Take 1 capsule by mouth daily before breakfast. 1/2 hr before meal. hydroCHLOROthiazide (HYDRODIURIL, ESIDRIX) 25 mg tablet Take 1 tablet by mouth once daily. fluticasone-salmeterol (ADVAIR DISKUS) 100-50 mcg/dose dsdv Inhale 1 Puff as instructed twice daily. Rinse mouth out after use with water. albuterol HFA (PROAIR HFA) 90 mcg/actuation inhaler Inhale 2 Puffs as instructed every 4 hours as needed. LORazepam (ATIVAN) 0.5 mg tab Take 1 tablet by mouth twice daily as needed (anxiety). citalopram (CELEXA) 20 mg tablet Take 1.5 tablets by mouth once daily. promethazine (PHENERGAN) 12.5 mg tablet Take 1 tablet by mouth every 6 hours as needed. NIFEdipine ER (PROCARDIA XL) 30 mg 24 hr tablet Take 1 tablet by mouth once daily. metroNIDAZOLE (METROGEL VAGINAL) 0.75 % Vaginal Gel Twice weekly vaginally x 6 months after initial course of flagyl fluticasone (FLONASE) 50 mcg/actuation nasal spray Use 2 Sprays in each nostril once daily. No current facility-administered medications for this visit. 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 OBJECTIVE: BP 118/86 Pulse 83 Temp 37.2 ?C (98.9 ?F) (Left Tympanic) Resp 16 Wt 118.7 kg (261 lb 9.6 oz) LMP 10/13/2011 SpO2 99% BMI 44.90 kg/m? APPEARANCE Well appearing, alert, in no acute distress, well-hydrated, well nourished. EYES PERRLA, conjunctiva and sclera normal. EARS External ears normal, canals clear. TMs normal LARRY NOSE/SINUS Nares normal. Septum midline. Mucosa normal. No drainage or sinus tenderness. THROAT normal, no erythema NECK Supple, no adenopathy; HEART RRR with normal S1 and S2 LUNG diminished throughout, no wheezing, few coarse breath sounds LARRY. No accessory muscle use ASSESSMENT/PLAN: 1. COPD exacerbation (HCC) - ICD9: 491.21, ICD10: J44.1 Supportive care with fluids and rest F/u in 3-5 days if not improving, sooner if worsening Consider CXR at that time Reviewed red flags and when to seek care sooner. - DOXYCYCLINE MONOHYDRATE 100 MG CAPSULE - FLUCONAZOLE 150 MG TABLET - PREDNISONE 20 MG TABLET The patient indicates understanding of these issues and agrees with the plan. Taylor Hrarell PA-C CNOV Observed: 08/29/2018 Status: COMPLETED Source: [place] 1:45 PM [facility] REPOSITORY Office Visit (WSTR) LESLIE DE LEÓN ([id number]) 1975 F Date Time Provider Department 08/29/18 1:45 PM TAYLOR HARRELL) [facility] During your visit today, we recorded the following information about you: Temperature Pulse Respiration Blood pressure 98.9 degrees 83/minute 16/minute 118/86 Weight 118.7 kg Taylor Harrell PA-C 08/29/2018 2:25 PM Signed 08/29/2018 Patient presents with: URI: x 1 week SUBJECTIVE: This is a 43 year old that is here today for Complaint(s) of cough and chest congestion 1.5 weeks. + SOB/wheezing worse than baseline. PMH of COPD. Former smoker. + diarrhea . + BORDEN intermittent. Cough productive in the morning. Has used inhalers, OTC cough/cold meds and tessalon without relief. + fatigue and diminished appetite. Denies fever, vomiting, nasal congestion PAST MEDICAL HISTORY Diagnosis Date - Abnormal glandular Papanicolaou smear of cervix Abn. Pap smear (cervix) - Acute myopericarditis 2011 cardiomyopathy - Dysthymic disorder Depression (non-psychotic) - Hypertension - Incidental lung nodule, > 3mm and < 8mm 03/24/2017 03/17/17: 7.5 mm nodule RLL - Migraine with aura and without status migrainosus, not intractable 01/09/2016 - Morbid obesity due to excess calories (HCC) 03/24/2017 - Protein S deficiency (HCC) - Pulmonary embolus (HCC) 2007 left lung, after delivery with cardiomyopathy - RLL pneumonia ([facility]) 03/10/2017 - Unspecified asthma(493.90) - Urinary calculus, unspecified 2004 Renal stones ALLERGIES Penicillins; Tramadol MEDICATIONS Current Outpatient Prescriptions: meclizine (ANTIVERT) 12.5 mg tab Take 1 tablet by mouth every 6 hours as needed (dizziness). sucralfate (CARAFATE) 1 gram tablet Take 1 tablet by mouth four times daily. ranitidine (ZANTAC) 150 mg tablet Take 1 tablet by mouth twice daily. venlafaxine ER (EFFEXOR XR) 37.5 mg 24 hr capsule Take 1 capsule by mouth once daily. topiramate (TOPAMAX) 25 mg tablet Take 2 tablets by mouth twice daily. rizatriptan (MAXALT PROPELLANT CHARGE ZONE ASSEMBLER) 10 mg disintegrating tablet Take 1 tablet by mouth as needed. May repeat in 2 hours if needed, Maximum dose=30 mg/24 hours ketorolac (TORADOL) 10 mg tablet Take 1 tablet by mouth every 6 hours as needed. Has tolerated Toradol injection in office. omeprazole (PRILOSEC) 20 mg capsule Take 1 capsule by mouth daily before breakfast. 1/2 hr before meal. hydroCHLOROthiazide (HYDRODIURIL, ESIDRIX) 25 mg tablet Take 1 tablet by mouth once daily. fluticasone-salmeterol (ADVAIR DISKUS) 100-50 mcg/dose dsdv Inhale 1 Puff as instructed twice daily. Rinse mouth out after use with water. albuterol HFA (PROAIR HFA) 90 mcg/actuation inhaler Inhale 2 Puffs as instructed every 4 hours as needed. LORazepam (ATIVAN) 0.5 mg tab Take 1 tablet by mouth twice daily as needed (anxiety). citalopram (CELEXA) 20 mg tablet Take 1.5 tablets by mouth once daily. promethazine (PHENERGAN) 12.5 mg tablet Take 1 tablet by mouth every 6 hours as needed. NIFEdipine ER (PROCARDIA XL) 30 mg 24 hr tablet Take 1 tablet by mouth once daily. metroNIDAZOLE (METROGEL VAGINAL) 0.75 % Vaginal Gel Twice weekly vaginally x 6 months after initial course of flagyl fluticasone (FLONASE) 50 mcg/actuation nasal spray Use 2 Sprays in each nostril once daily. No current facility-administered medications for this visit. 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 OBJECTIVE: BP 118/86 Pulse 83 Temp 37.2 ?C (98.9 ?F) (Left Tympanic) Resp 16 Wt 118.7 kg (261 lb 9.6 oz) LMP 10/13/2011 SpO2 99% BMI 44.90 kg/m? APPEARANCE Well appearing, alert, in no acute distress, well- hydrated, well nourished. EYES PERRLA, conjunctiva and sclera normal. EARS External ears normal, canals clear. TMs normal LARRY NOSE/SINUS Nares normal. Septum midline. Mucosa normal. No drainage or sinus tenderness. THROAT normal, no erythema NECK Supple, no adenopathy; HEART RRR with normal S1 and S2 LUNG diminished throughout, no wheezing, few coarse breath sounds LARRY. No accessory muscle use ASSESSMENT/PLAN: 1. COPD exacerbation (HCC) - ICD9: 491.21, ICD10: J44.1 Supportive care with fluids and rest F/u in 3-5 days if not improving, sooner if worsening Consider CXR at that time Reviewed red flags and when to seek care sooner. - DOXYCYCLINE MONOHYDRATE 100 MG CAPSULE - FLUCONAZOLE 150 MG TABLET - PREDNISONE 20 MG TABLET The patient indicates understanding of these issues and agrees with the plan. Taylor Harrell PA-C Referring Provider: SELF [200] Allergies As of Date: 08/29/2018 Noted Allergy Reaction PENICILLINS 07/02/2005 4 - Hives TRAMADOL 01/30/2008 11 - Vomiting Date Reviewed: 08/29/2018 Reviewed by: Laila Lauren Ma - Fully Assessed Reason for Visit: URI [115] Cmt: x 1 week Primary Visit Diagnosis:COPD exacerbation (HCC) [J44.1] Order(s):doxycycline monohydrate (MONODOX) 100 mg capsuleTake 1 capsule by mouth twice daily for 10 days.Disp: 20 capsuleRfl: 0 fluconazole (DIFLUCAN) 150 mg tabletTake 1 tablet by mouth once daily for 1 day.Disp: 1 tabletRfl: 0 predniSONE (DELTASONE) 20 mg tabletTake 2 tablets by mouth once daily for 5 days.Disp: 10 tabletRfl: 0 Prescriptions as of 08/29/2018 Sig: MECLIZINE 12.5 MG TABLET Take 1 tablet by mouth every * SUCRALFATE 1 GRAM TABLET Take 1 tablet by mouth four t* RANITIDINE 150 MG TABLET Take 1 tablet by mouth twice * VENLAFAXINE ER 37.5 MG CAPSUL* Take 1 capsule by mouth once * TOPIRAMATE 25 MG TABLET Take 2 tablets by mouth twice* RIZATRIPTAN 10 MG DISINTEGRAT* Take 1 tablet by mouth as nee* KETOROLAC 10 MG TABLET Take 1 tablet by mouth every * OMEPRAZOLE 20 MG CAPSULE,MIGUEL ANGEL* Take 1 capsule by mouth daily* HYDROCHLOROTHIAZIDE 25 MG TAB* Take 1 tablet by mouth once d* FLUTICASONE 100 MCG-SALMETERO* Inhale 1 Puff as instructed t* ALBUTEROL SULFATE HFA 90 MCG/* Inhale 2 Puffs as instructed * LORAZEPAM 0.5 MG TABLET Take 1 tablet by mouth twice * CITALOPRAM 20 MG TABLET Take 1.5 tablets by mouth onc* PROMETHAZINE 12.5 MG TABLET Take 1 tablet by mouth every * NIFEDIPINE ER 30 MG TABLET,EX* Take 1 tablet by mouth once d* METRONIDAZOLE 0.75 % VAGINAL * Twice weekly vaginally x 6 mo* FLUTICASONE 50 MCG/ACTUATION * Use 2 Sprays in each nostril * DOXYCYCLINE MONOHYDRATE 100 M* Take 1 capsule by mouth twice* FLUCONAZOLE 150 MG TABLET Take 1 tablet by mouth once d* PREDNISONE 20 MG TABLET Take 2 tablets by mouth once * Problem List As Of Date 08/29/2018 Noted Resolved Calculus of kidney [N20.0] INVALID FOR*03/28/2014 HIDRADENITIS [L73.2] INVALID FOR* Unspecified asthma(493.90) [J45.909] 03/28/2014 More... Hypopotassemia [E87.6] INVALID FOR*03/28/2014 Biliary dyskinesia [K82.8] INVALID FOR*03/28/2014 Acute myopericarditis [I30.9] INVALID FOR*03/28/2014 Migraine with aura and without status migrainos*INVALID FOR* Chronic pelvic pain in female [R10.2, G89.29] INVALID FOR* Acute myopericarditis [I30.9] INVALID FOR* Incidental lung nodule, > 3mm and < 8mm [R91.1] INVALID FOR* More... Hot flashes [R23.2] INVALID FOR* Morbid obesity due to excess calories (HCC) [E6*INVALID FOR* Prescriptions ordered this encounter Disp Refills Start End DOXYCYCLINE MONOHYDRATE 100 MG CAPSU* 20 c* 0 08/29/2018 09/08/2018 Route: ORAL Sig: Take 1 capsule by mouth twice daily for 10 days. FLUCONAZOLE 150 MG TABLET 1 ta* 0 08/29/2018 08/30/2018 Route: ORAL Sig: Take 1 tablet by mouth once daily for 1 day. PREDNISONE 20 MG TABLET 10 t* 0 08/29/2018 09/03/2018 Route: ORAL Sig: Take 2 tablets by mouth once daily for 5 days. Encounter Status:Closed by TAYLOR HARRELL PA-C on 08/29/18 OPERATIVE REPORT - Observed: 08/04/2018 Status: F Source: [place] 1:14 PM [facility] REPOSITORY [facility] Medical Records Department [address] [place] [address] Operative Report - Endoscopy MR#: [id number] Acct: [id number] Name: LESLIE DE LEÓN Rep #: [id number] : 1975 43 From: Demarco Pena MD PCP: Sabrina Pena III, MD [place]: [facility] Patient Name: Leslie De León Procedure Date: 08/04/2018 12:51 PM Date of : 1975 Age: 43 Procedure: Colonoscopy Indications: Chronic diarrhea Providers: Demarco Pena MD Medicines: See the Anesthesia note for documentation of the administered medications Patient Profile: Last Colonoscopy: none. The patient's first colonoscopy is today. Complications: No immediate complications. Procedure: Pre-Anesthesia Assessment: - Prior to the procedure, a History and Physical was performed, and patient medications and allergies were reviewed. The patient's tolerance of previous anesthesia was also reviewed. The risks and benefits of the procedure and the sedation options and risks were discussed with the patient. All questions were answered, and informed consent was obtained. Prior Anticoagulants: The patient has taken no previous anticoagulant or antiplatelet agents. ASA Grade Assessment: II - A patient with mild systemic disease. After reviewing the risks and benefits, the patient was deemed in satisfactory condition to undergo the procedure. After I obtained informed consent, the scope was passed under direct vision. Throughout the procedure, the patient's blood pressure, pulse, and oxygen saturations were monitored continuously. The Colonoscope was introduced through the anus and advanced to the cecum, identified by appendiceal orifice and ileocecal valve. The colonoscopy was performed without difficulty. The patient tolerated the procedure well. The quality of the bowel preparation was good. The ileocecal valve was photographed. Scope In: 12:53:34 PM Scope Withdrawal Time 0 hours 5 minutes 25 seconds Scope Out: 1:04:55 PM Total Procedure Duration Time 0 hours 11 minutes 21 seconds Findings: The perianal and digital rectal examinations were normal. Scattered diverticula were found in the sigmoid colon. Biopsies for histology were taken with a cold forceps from the entire colon for evaluation of microscopic colitis. The exam was otherwise without abnormality. A 4 mm polyp was found in the rectum. The polyp was sessile. The polyp was removed with a cold biopsy forceps. Resection and retrieval were complete. Impression: - Diverticulosis in the sigmoid colon. Biopsied. - The examination was otherwise normal. Recommendation: - Discharge patient to home. - Resume previous diet. - Continue present medications. - Telephone my office for pathology results in 1 week. - Repeat colonoscopy in 10 years for screening purposes. Demarco Pena MD 08/04/2018 1:14:34 PM This report has been signed electronically. Number of Addenda: 0 Note Initiated On: 08/04/2018 12:51 PM 08/04/18 1314 Date Demarco Pena MD Cosigner Signature: Date (if indicated) CC: Sabrina Pena III, MD; Demarco Pena MD Date Dictated: 08/04/18 1251 Date Transcribed: Row Boss Hoeing: MARCY Signed OPERATIVE REPORT - Observed: 08/04/2018 Status: F Source: [facility] 1:11 PM [facility] REPOSITORY [facility] Medical Records Department [address] [place] [address] Operative Report - Endoscopy MR#: [id number] Acct: [id number] Name: LESLIE DE LEÓN Rep #: [id number] : 1975 43 From: Demarco Pena MD PCP: Sabrina Pena III, MD [place] [facility] Patient Name: Leslie De León Procedure Date: 08/04/2018 12:27 PM Date of : 1975 Age: 43 Procedure: Upper GI endoscopy Indications: Dysphagia, Suspected esophageal reflux Providers: Demarco Pena MD Medicines: See the Anesthesia note for documentation of the administered medications Complications: No immediate complications. Procedure: Pre-Anesthesia Assessment: - Prior to the procedure, a History and Physical was performed, and patient medications and allergies were reviewed. The patient's tolerance of previous anesthesia was also reviewed. The risks and benefits of the procedure and the sedation options and risks were discussed with the patient. All questions were answered, and informed consent was obtained. Prior Anticoagulants: The patient has taken no previous anticoagulant or antiplatelet agents. ASA Grade Assessment: II - A patient with mild systemic disease. After reviewing the risks and benefits, the patient was deemed in satisfactory condition to undergo the procedure. After obtaining informed consent, the endoscope was passed under direct vision. Throughout the procedure, the patient's blood pressure, pulse, and oxygen saturations were monitored continuously. The gastroscope was introduced through the mouth, and advanced to the second part of duodenum. The upper GI endoscopy was accomplished without difficulty. The patient tolerated the procedure well. Scope In: 12:41:08 PM Scope Out: 12:49:18 PM Total Procedure Duration Time 0 hours 8 minutes 10 seconds Findings: LA Grade A (one or more mucosal breaks less than 5 mm, not extending between tops of 2 mucosal folds) esophagitis with no bleeding was found 37 cm from the incisors. Biopsies were taken with a cold forceps for histology. A small hiatal hernia was present. The Z-line was irregular and was found 37 cm from the incisors. Diffuse moderately erythematous mucosa without bleeding was found in the gastric antrum. Biopsies were taken with a cold forceps for histology. The examined duodenum was normal. Impression: - LA Grade A reflux esophagitis. Biopsied. Mid esophageal biopsies obtained looking for eosinophilic esophagitis - Small hiatal hernia. - Z-line irregular, 37 cm from the incisors. - Erythematous mucosa in the antrum. Biopsied. - Normal examined duodenum. Recommendation: - Telephone my office for pathology results in 1 week. - Continue present medications. Procedure Code(s): --- Professional --- 89097, Esophagogastroduodenoscopy, flexible, transoral; with biopsy, single or multiple Diagnosis Code(s): --- Professional --- K21.0, Gastro-esophageal reflux disease with esophagitis K44.9, Diaphragmatic hernia without obstruction or gangrene K22.8, Other specified diseases of esophagus K31.89, Other diseases of stomach and duodenum R13.10, Dysphagia, unspecified CPT copyright 2017 [employer]. All rights reserved. The codes documented in this report are preliminary and upon loop machine operator review may be revised to meet current compliance requirements. Demarco Pena MD 08/04/2018 1:10:44 PM This report has been signed electronically. Number of Addenda: 0 Note Initiated On: 08/04/2018 12:27 PM 08/04/18 1310 Date Demarco Pena MD Cosigner Signature: Date (if indicated) CC: Sabrina Pena III, MD; Demarco Pena MD Date Dictated: 08/04/18 1227 Date Transcribed: Row Boss Hoeing: MARCY Signed GASTRIC BIOPSY Observed: 08/04/2018 Status: F Source: [place] 12:00 AM [facility] REPOSITORY Patient: LESLIE DE LEÓN : 1975 (43/F) Acct Num: [id number] Phys: Siva ROCHA,Demarco Unit Num: [id number] Loc: EN Specimen: [id number] Received: 08/04/18 - 1443 Spec Type: Gastric Bx TISSUES 1 TISSUES: A. Gastric mucous membrane B. Esophageal mucous membrane C. Esophageal mucous membrane D. COLON BIOPSY E. Rectum, NOS COMMENT A. The results of immunohistochemistry for Helicobacter pylori will be reported separately ([id number]). B. Alcian blue/PAS stain with matched control is used in the evaluation of the specimen. GROSS DESCRIPTION A - Received in fixative is one container labeled with the patient's name and designated antral biopsy. The specimen consists of one irregular fragment of light moore soft tissue that measures 0.5 x 0.2 x 0.1 cm. The specimen is totally submitted in one cassette. B - Received in fixative is one container labeled with the patient's name and designated distal esophagus biopsy. The specimen consists of multiple irregular fragments of light moore soft tissue that in aggregate measure 0.8 x 0.3 x 0.1 cm. The specimen is totally submitted in one cassette. C - Received in fixative is one container labeled with the patient's name and designated mid esophagus biopsy. The specimen consists of two irregular fragments of light moore soft tissue that in aggregate measure 0.6 x 0.2 x 0.1 cm. The specimen is totally submitted in one cassette. D - Received in fixative is one container labeled with the patient's name and designated random colonic biopsy. The specimen consists of multiple irregular fragments of light moore soft tissue that in aggregate measure 1 x 0.6 x 0.1 cm. The specimen is totally submitted in one cassette. E - Received in fixative is one container labeled with the patient's name and designated biopsy of proximal rectum. The specimen consists of two irregular fragments of light moore soft tissue that in aggregate measure 0.6 x 0.3 x 0.1 cm. The specimen is totally submitted in one cassette. / SJ:tory 08/04/18 TC:3 CPT: 78670 x5, 85997 HEADER OPERATION: Colonoscopy, EGD ([facility]) PRE-OP DIAGNOSIS: Gastroesophageal reflux, diarrhea, periumbilical abdominal pain TISSUE SUBMITTED: A - Antrum biopsy for H. pylori and path, B - Distal esophageal biopsy, C - Mid esophagus biopsy, D - Random colon biopsies, E - Biopsy of proximal rectum polyp MICROSCOPIC DESCRIPTION Slides are reviewed. A. The specimen shows fragments of gastric mucosa with chronic inflammatory cell infiltrates in the lamina propria consisting of lymphocytes and plasma cells, consistent with mild chronic gastritis. MICROSCOPIC DIAGNOSIS A. Antrum biopsy: Mild gastritis. See microscopic description and comment. B. Distal esophageal biopsy: Fragments of gastroesophageal mucosa with chronic inflammation. Intestinal metaplasia (goblet cell metaplasia) is not identified. See comment. C. Mid esophagus, biopsy: Fragments of squamous epithelium with mild chronic inflammation. D. Colon, random biopsy: Fragments of colonic mucosa, no pathologic diagnosis. E. Proximal rectum polyp, biopsy: Fragments of hyperplastic polyp. SJ:tory 08/05/18 Signed Abel Stanley 08/05/18 <signature on file> Performed By: #### PGASB #### [facility] [place], [address] IMMUNOHISTOCHEMISTRY Observed: 08/04/2018 Status: F Source: [place] 12:00 AM [facility] REPOSITORY Patient: LESLIE DE LEÓN : 1975 (43/F) Acct Num: [id number] Phys: Siva ROCHA,Demarco Unit Num: [id number] Loc: EN Specimen: [id number] Received: 08/04/18 1525 Spec Type: IMMUNO TISSUES 1 TISSUES: A. Stomach, NOS SPECIMEN INFORMATION: Tissue Source: A - Antrum biopsy Clinical Info: Gastroesophageal reflux, diarrhea, periumbilical abdominal pain Specimen Number: [id number] CPT code: 58487 METHODOLOGY: Deparaffinized sections of prefer/formalin-fixed tissue or PAP/DQ stained slides are incubated with monoclonal/polyclonal antibodies/oligonucleotide probes. Localization is made via biotin free immunoperoxidase method. Appropriate controls are performed and reacted as expected. Results on target cell population are indicated in the following table: RESULTS: ANTIBODY / CLONE RESULT Block A H Pylori (polyclonal) negative These tests were developed and their performance characteristics determined by [facility]. They may not have been cleared or approved by the U.S. Food and Drug Administration. The FDA has determined that such clearance or approval is not necessary. INTERPRETATION: A. Antrum, biopsy: Negative for Helicobacter pylori organisms. SJ:tory 08/05/18 PHYSICIAN AND INSTITUTION [place] [address] Signed Abel Stanley 08/05/18 <signature on file> Performed By: #### PIMM #### [facility] [address] [place] [address], [address] SURGERY VISIT REPORT Observed: 07/27/2018 Status: F Source: [place] 11:39 AM [facility] REPOSITORY [facility] [address] [place] [address] [address] [place] [address] OFFICE VISIT Date of Service: 07/27/18 MR#: [id number] Acct: [id number] Name: SARTHAKLESLIE L Rep #: [id number] : 1975 Provider: Demarco Pena MD Age/Sex: 43/F Location: [facility] Status: Signed Intake Vital Signs07/27/18 Height 5 ft 4 in 07/27/18 Weight: 265 lb 8 oz Intake Visit Reasons: C-SCOPE/CHANGE IN BOWEL HABITS Chief Complaint: Pelvic Pain Brand Mgr Required: No Is patient in pain?: Yes (Bellybutton to lower abdomen) Pain scale (1-10): 8 Allergies Penicillins Allergy (Verified 07/27/18 11:19) Rash tramadol Allergy (Verified 07/27/18 11:19) Rash Medications Hydrochlorothiazide [Hctz] 25 mg PO DAILY 12/30/15 [History Confirmed 07/27/18] Citalopram Hydrobromide [Celexa] 20 mg PO DAILY 03/17/17 [History Confirmed 07/27/18] Omeprazole [Prilosec] 20 mg PO DAILY 05/28/18 [History Confirmed 07/27/18] Topiramate [Topamax] 25 mg DAILY 05/28/18 [History Confirmed 07/27/18] Venlafaxine HCl [Effexor] 37.5 mg PO DAILY 05/28/18 [History Confirmed 07/27/18] Sucralfate [Carafate] 1 gm PO 4X/DAY #60 tab 06/28/18 [Rx Confirmed 07/27/18] Zantac 150 mg PO BID 07/18/18 [History Confirmed 07/27/18] rizatriptan 10 mg disintegrating tablet 10 mg PO ONCE 07/27/18 [History Confirmed 07/27/18] PFSH Medical History GERD (gastroesophageal reflux disease) (Acute) Myocardial infarction (Acute) Breathing-related sleep disorder (Chronic) Nicotine dependence in remission (Chronic) Obesity (Chronic) Pulmonary nodule (Chronic) H/O: hysterectomy (Resolved) Surgical History Hx of right heart catheterization (Acute) Hx of cholecystectomy (Resolved) Family History Mother Diabetes Hypertension Cancer Uterine cancer Pancreatitis Father Diabetes Heart disease Hypertension Daughter Hearing loss Social History Smoking Status: Former smoker second hand exposure: No alcohol intake: current alcohol intake frequency: 0-2 drinks per day details: social substance use type: does not use caffeine: Yes what type of physical activity do you participate in: none, walking seatbelt use: always do you feel safe at home: Yes additional social history: Rebecca Snow Patient works at the [employer] HPI HPI: LESLIE DE LEÓN, is a 43 F who presents to the office today for surgical consultation regarding intractable gastroesophageal reflux disease with a newer onset of diarrhea of undetermined etiology and mid abdominal pain. She has significant postprandial discomfort. She was referred by her primary care physician Dr. Sabrina Pena III and a written copy of my surgical consult and recommendations will be returned to him. June 28 the patient was seen at the [facility] emergency room because of vertigo. She then was seen by ear nose and throat doctor Dr. Leander Cruz and apparently had that resolved with mechanical realignment. Going back to April 26, 2012 I performed a laparoscopic cholecystectomy with cholangiograms on her because of biliary dyskinesia and an abnormal CCK HIDA scan. That was also performed because of abdominal pain. Currently she is describing mid abdominal discomfort. Claims that she is awakened at night with food in her throat. Complains of epigastric bloating after eating. Complains of a intractable mid abdominal pain followed by diarrhea. ROS General General: Yes weight change and fatigue; no appetite, colon cancer, breast cancer or weakness HEENT HEENT: No difficulty swallowing, eye injury, eye surgery, swollen glands or hoarseness Endo Endocrine: No thyroid disease, diabetes mellitus, thyroid cancer, Hair loss, heat intolerance or cold intolerance Skin Skin: No rash or changing moles Musc Musculoskeletal: No back problems, arthritis, rheumatoid arthritis, gout or joint pain Cardio Cardiovascular: Yes high blood pressure and heart attack; no murmur, pacemaker, heart disease, atrial fibrillation, heart stent, palpitations, shortness of breat with exertion or chest pain Psych Psychiatric: Yes depression and anxiety; no hearing voices Resp Respiratory: Yes shortness of breath, Yes sleep apnea, Yes cough, Yes asthma, No COPD, No emphysema, No wheezing Gastro Gastrointestinal: Yes abdominal pain, Yes nausea or vomiting, Yes diarrhea, Yes constipation, Yes acid reflux, No blood in stool, No hemorrhoids, No ulcers, No gallbladder problem, No black,tarry stools Deric Hematologic: Yes blood disorders, Yes blood clots, No blood thinners, No bleeding, No anemia Neuro Neurologic: No system reviewed and no additional complaints, except as docu, No as per HPI, No abnormal walking, No abnormal hearing, No abnormal movements, No abnormal speech, No behavioral changes, No burning sensations, No confusion, No seizure-like activity, No unsteadiness, No dizziness, No localized weakness, No frequent falls, No headache(s), No lack of coordination, No loss of vision, No memory loss, No numbness, No other visual disturbances, No radiating pain, No restless legs, No sensory deficit, No fainting, No tingling, No tremor(s), No weakness, No other Exam Const General: cooperative Nutritional Appearance: obese HENMT Head: normal to inspection Eyes General: appearance normal, both eyes and all related structures Resp Effort AND Inspection: normal respiratory effort Auscultation: clear to auscultation bilaterally Cardio Rate: regular rate Rhythm: regular rhythm Heart Sounds: no murmurs GI Other: Notably overweight, well-healed laparoscopic incisions, no palpable ventral or incisional hernias, normal bowel sounds, tender to even light palpation of the epigastrium or left upper quadrant. No particular mass. No bruit. Musc Cervical Spine: normal cervical lordosis Neuro Cranial Nerves: CN's II-XI intact bilaterally Extrem General: no calf tenderness Psych Affect: normal affect Assessment AND Plan Problems 1. Gastroesophageal reflux disease, esophagitis presence not specified K21.9 2. Diarrhea, unspecified type R19.7 3. Periumbilical abdominal pain R10.33 4. factor 5 Plan Symptoms of GERD accelerated despite appropriate treatment with proton pump inhibitor and H2 catracho and Carafate. I believe that is reasonable to perform a esophagogastroduodenoscopy with possible biopsy inspecting for possible H. pylori or eosinophilic esophagitis or hiatal hernia or other structural disorder. Diarrhea of undetermined etiology. Recommend a colonoscopy with likely random colonic biopsies looking for microcytic colitis. Morbid obesity with a BMI of 45.6 and body weight of 265 pounds likely significantly aggravating her reflux symptoms. Recommendations would be for weight loss. Reported history of factor V Leiden deficiency although she has not recently had any consequences and she is not on any current anticoagulants. I do not believe that that will affect our planned outpatient upper and lower combined endoscopy. Pending pathology will be able to report back to Dr. Sabrina Pena, III any organic findings. It may well be that the patient resolved down to a diagnosis of irritable bowel syndrome. She has had an opportunity to ask and have questions answered. I will assist with expediting her upper and lower endoscopy. At this time I am not anticipating surgical intervention. If her GERD findings in particular remain heightened then clearly her best option would be with medical management of her weight which likely would improve those symptoms. I appreciate the opportunity of assisting with her surgical care CC: Dr. Sabrina Pena, III Demarco Pena M.D., F.A.C.S. Coding Level of Care Code Comprehensive,moderate Diagnoses Gastroesophageal reflux disease, esophagitis presence not specified K21.9 Esophagitis presence: esophagitis presence not specified Diarrhea, unspecified type R19.7 Diarrhea type: unspecified type Periumbilical abdominal pain R10.33 Abdominal location: periumbilical factor 5 07/27/18 1139 <Electronically signed by Demarco Pena MD> Date Demarco Pena MD Cosigner Signature: Date (if applicable) CC: Sabrina Pena III, MD 12 LEAD ELECTROCARDIOGRAM Observed: 07/25/2018 Status: F Source: [place] 3:39 PM [facility] REPOSITORY [facility] Cardiovascular Services [address] [place] [address] 12 Lead EKG 07/18/182050 MR#: [id number] Acct: [id number] Name: LESLIE DE LEÓN Rep #: [id number] : 1975 43 From: Jerry Bennett MD Attending Dr: Status: DEP ER Ordering Dr: Theodore Gonzalez P. Date: 07/18/18 Location: ED Sex: F C Admitted: Test Reason : DIZZINESS Blood Pressure : / mmHG Vent. Rate : 086 BPM Atrial Rate : 086 BPM P-R Int : 138 ms QRS Dur : 072 ms QT Int : 378 ms P-R-T Axes : 027 057 056 degrees QTc Int : 452 ms Normal sinus rhythm Normal ECG Confirmed by JERRY BENNETT MD ([id number]), commercial production editor GERSON CRUZ ([id number]) on 07/25/2018 3:39:07 PM Referred By: DESIRE Confirmed By:JERRY BENNETT MD 07/25/18 1539 Date Jerry Bennett MD CC: ED PHYSICIAN PROVIDER; Sarbina Pena III, MD; Alessia Houston MD Signed EMERGENCY DEPARTMENT Observed: 07/19/2018 Status: F Source: [place] SUMMARY 1:34 AM [facility] REPOSITORY [facility] Medical Records Department [address] [place] [address] Emergency Department Summary 07/18/18 2309 MR#: [id number] Acct: [id number] Name: LESLIE DE LEÓN Rep #: [id number] : 1975 43 From: Alessia Houston MD PCP: Sabrina Pena III, MD Status: DEP ER - ER Visit Summary Date of Service: 07/18/18 Chief Complaint: Dizzy, vertigo History of Present Illness: The patient is a 43 F with vertigo for the past 8 days. She has had vertigo in the past. She was seen by her PCP and is currently on Antivert 12.5 mg every 6 hours without improvement. Patient noted ringing in her ear that started 3 days ago. She also complaining of a headache which she describes as head pressure. She also reports recent GI issues. She reports nausea, diarrhea, and occasional vomiting. She is scheduled to see Dr. Stark tomorrow to schedule scopes to deal with this. Physical Examination: Blood pressure is 153/92, temperature 97.6, heart rate 97, respiratory rate 14, pulse ox 97% on room air. Patient is lying in a darkened room in no acute distress. Head neck examination reveals moist mucous membranes. No significant rhinorrhea. Heart is regular rate and rhythm. Lung sounds are clear. Abdomen is soft nontender. Neuro exam reveals no focal deficits. Test Results: EKG is sinus 86 with no sign of acute ischemia. CBC and chemistry studies significant only for glucose of 150. Coags normal. CT head shows no acute process. There is opacification of the ethmoid, sphenoid, and maxillary sinuses consistent with sinusitis. Emergency Department Course and Treatment: Patient was initially given Toradol, Zofran, and IV fluids followed by dose of morphine and Zofran. Test results were discussed with patient and family at bedside. I discussed the possibility of M ni re's disease as she now has the significant ringing in her left ear. I recommended follow-up with ENT for this and have given her a handout on M ni re's disease to review. She will be placed on doxycycline for sinusitis as this may be playing a role in her symptoms as well. I did also discuss with her increasing her dose of Antivert at home to 25-50 mg rather than a 12.5 that she is taking to see if she gets better improvement in her symptoms. She voices understanding and agreement. She is given first dose of doxycycline here and a prescription for the same. She is given ENT referral for follow-up. Treatment Plan: [] Disposition: Discharge Impression: 1. Sinusitis 2. Vertigo with concern for M ni re's disease This note was generated with Fittr dictation software. It may contain incorrect words, spelling, and punctuation that were not noted in review of the chart prior to signing ED Disposition - Plan for ED Patient: Disposition: Home or Assisted Living Chief Complaint: Dizziness Instructions: ED Sinusitis Abx Tx, ED Vertigo Unspecified Prescriptions: Doxycycline 100 mg PO BID #20 capsule Referrals: Jean Marie Palafox MD [STAFF PHYSICIAN] - Sabrina Pena III, MD [Primary Care Provider] - Jose Salmeron MD [STAFF PHYSICIAN] - What to do if you have Problems For any increased pain, shortness of breath, bleeding, nausea or vomiting, chest pain, or any unexpected problems, contact your Primary Care Provider. Call [facility] ([phone]) or report to the closest Emergency Room. Call 911 if necessary. 07/19/18 0134 <Electronically signed by Alessia Houston MD> Date Alessia Houston MD Cosigner Signature (If Indicated): Date CC: Sabrina Pena III, MD DISCHARGE INSTRUCTION Observed: 07/18/2018 Status: F Source: [place] 11:18 PM [facility] REPOSITORY [facility] Medical Records Department [address] [address] Discharge Instruction 07/18/187 MR#: [id number] Acct: [id number] Name: LESLIE DE LEÓN Rep #: [id number] : 1975 43 From: Alessia Houston MD PCP: Sabrina Pena III, MD Status: REG ER ED Disposition - Plan for ED Patient: Disposition: Home or Assisted Living Chief Complaint: Dizziness Instructions: ED Vertigo Unspecified, ED Sinusitis Abx Tx Prescriptions: Doxycycline 100 mg PO BID #20 capsule Referrals: Jose Salmeron MD [STAFF PHYSICIAN] - Jean Marie Palafox MD [STAFF PHYSICIAN] - Sabrina Pena III, MD [Primary Care Provider] - What to do if you have Problems For any increased pain, shortness of breath, bleeding, nausea or vomiting, chest pain, or any unexpected problems, contact your Primary Care Provider. Call [facility] ([phone]) or report to the closest Emergency Room. Call 911 if necessary. 07/18/182317 <Electronically signed by Alessia Houston MD> Date Alessia Houston MD Cosigner Signature (If Indicated): Date CC: Sabrina Pena III, MD BRAIN/HEAD WITHOUT Observed: 07/18/2018 Status: F Source: [place] CONTRAST 9:42 PM [facility] REPOSITORY [facility] Imaging Services [address] [place] [address] Brain/Head without Contrast MR#: [id number] Acct: [id number] Name: LESLIE DE LEÓN Rep #: [id number] : 1975 F 43 From: Camryn Grey MD PCP: Sabrina Pena III, MD Status: REG ER Study: Brain/Head without Contrast Date of Exam: 07/18/18 Exam# [id number] Ordering Dr: Alessia Houston MD STUDY: CT BRAIN WITHOUT CONTRAST REASON FOR EXAM: Female, 43 years old. Dizziness. RADIATION DOSAGE (If Supplied By Facility): CTDIvol = ( 44.99 ) mGy, DLP = ( 745.49 ) mGycm TECHNIQUE: Transaxial CT imaging of the brain was performed without administration of intravenous contrast material. Individualized dose optimization techniques were used for this CT. COMPARISON: September 19, 2017 FINDINGS: Normal soft tissue structures. Normal calvarium. Normal size ventricles and extra-axial spaces for the patient's age. Normal white matter tracts of the cerebral hemispheres. Normal basal ganglia and thalami. Normal brainstem. Normal cerebellum. There is no intracranial hemorrhage. There are no findings of an acute ischemic infarction. There is opacification of the ethmoid, sphenoid and visualized maxillary sinuses. CT/Brain/Head without Contrast IMPRESSION: No acute intracranial process. Opacification of the ethmoid, sphenoid and visualized maxillary sinuses consistent with a history of sinusitis. Electronically Signed: Camryn Grey MD at 22:05 EDT Tel , Service support , CC: Sabrina Pena III, MD; Alessia Houston MD Row Boss Hoeing: Signed CBC W/DIFF, AUTOMATED Collected: 07/18/2018 Status: F Source: [place] 8:40 PM [facility] REPOSITORY TYPE CODE TESTS RESULT OUT OF RANGE REFERENCE UNITS LAB L100.1000 4.4-11.0 K/mm3 Normal WBC 6.0 LAB L100.1200 4.2-5.4 M/mm3 Normal RBC 4.25 LAB L100.1300 12.0-15.0 g/dl Normal HGB 13.2 LAB L100.1400 37-47 % Normal HCT 38.9 LAB L100.1500 81-99 fL Normal MCV 91.5 LAB L100.1600 27.0-32.0 pg Normal MCH 31.1 LAB L100.1700 32-36 g/gl Normal MCHC 33.9 LAB L100.1810 11.6-14.6 % Normal RDW CV 12.2 LAB L100.1820 35.1-43.9 fl Normal RDW SD 40.6 LAB L100.1900 150-450 K/mm3 Normal PLT 183 LAB L100.2000 6.2-12.0 fl Normal MPV 10.5 LAB L100.2100 47-70 % Normal NEUT% 57.9 LAB L100.2200 19-41 % Normal LY% 33.6 LAB L100.2300 0-10 % Normal MONO% 5.5 LAB L100.2400 0-5 % Normal EO% 2.5 LAB L100.2500 0-1 % Normal BASO% 0.3 LAB L100.2550 0.0-0.9 % Normal IM GRAN % 0.200 Result Comment: IG% - Immature Granulocytes (promyelocytes, myelocytes and metamyelocytes) > 1% indicates that a LEFT SHIFT is Present. LAB L100.2620 2.0-7.7 X10 3/uL Normal Absolute Neut 3.5 LAB L100.2720 0.83-4.51 X10 3/ul Normal Absolute Lymph 2.02 Performed By: #### L100.0100 #### [facility] [address] [place] [address], [address] PROTHROMBIN TIME W/INR Collected: 07/18/2018 Status: F Source: [place] 8:40 PM [facility] REPOSITORY TYPE CODE TESTS RESULT OUT OF RANGE REFERENCE UNITS LAB L300.4150 11.7-14.9 SECONDS Low PROTIME 11.4 LAB L300.4200 Normal INR 0.8 Performed By: #### L300.3900, L300.4310 #### [facility] [address] [place], [address] PARTIAL THROMBOPLAST Collected: 07/18/2018 Status: F Source: [place] TIME 8:40 PM [facility] REPOSITORY TYPE CODE TESTS RESULT OUT OF REFERENCE UNITS RANGE LAB L300.4310 24.1-36.2 Seconds Low PTT 22.5 Performed By: #### L300.3900, L300.4310 #### [facility] [address] [place], [address] BASIC METABOLIC Collected: 07/18/2018 Status: F Source: [place] PROFILE (BMP) 8:40 PM [facility] REPOSITORY TYPE CODE TESTS RESULT OUT OF RANGE REFERENCE UNITS LAB L501.0100 74-106 mg/dL High GLU 150 Result Comment: Fasting Glucose result greater than or equal to 126 mg/dL suggests DIABETES MELLITUS per A.D.A. criteria. Please note revised GLUCOSE reference range effective 2017. LAB L501.1000 7-18 mg/dL Normal BUN 11 LAB L501.1100 0.55-1.02 mg/dL Normal CREAT,SERUM 0.83 Result Comment: The validity of the calculated GFR AND GFRAA in patients over 70 years has not been determined. Clinical correlation is essential. LAB L501.1110 >60 mL/min Normal EST GFR 80 Result Comment: Non- GFR Calc LAB L501.1115 >60 mL/min Normal EST GFR - AA 97 Result Comment: GFR Calc LAB L501.1255 ml/min Normal Estimated CRCL 77.02 LAB L501.1300 10-20 RATIO Normal BUN/CRE 13.2 LAB L501.2200 8.5-10 mg/dL Normal .1 CA 8.9 LAB L501.5300 136-14 mmol/L Normal 5 NA 140 LAB L501.5600 3.5-5. mmol/L Normal 1 K 3.9 Result Comment: Slight Hemolysis, Result may be falsely increased. LAB L501.5900 98-107 mmol/L Normal CL 102 LAB L501.6100 21.0-32.0 mmol/L Normal CO2 31.0 LAB L501.6200 5-15 Normal 7 GAP Performed By: #### L500.2500 #### [facility] [address] [place], [place], [address] CHEST PA AND LATERAL Observed: 07/18/2018 Status: F Source: [place] 8:32 PM [facility] REPOSITORY [facility] Imaging Services [address] [place] [address] Chest PA and Lateral MR#: [id number] Acct: [id number] Name: LESLIE DE LEÓN Rep #: [id number] : 1975 F 43 From: Camryn Grey MD PCP: Sabrina Pena III, MD Status: REG ER Study: Chest PA and Lateral Date of Exam: 07/18/18 Exam# [id number] Ordering Dr: Provider,Ed P. STUDY: X-RAY CHEST REASON FOR EXAM: Female, 43 years old. Dizzy, heartburn. TECHNIQUE: PA and lateral views of the chest. COMPARISON: The very 06/06/2018 FINDINGS: The lungs are clear and expanded. There is no demonstrated pleural abnormality. Normal size heart. Normal mediastinum and jessi. Normal visualized pulmonary arteries. Normal visualized aortic arch and descending thoracic aorta. Normal visualized thoracic spine. Normal visualized ribs, clavicles, and shoulders. There is no demonstrated abnormality of the visualized soft tissue structures of the upper abdomen. RAD/Chest PA and Lateral IMPRESSION: No acute cardiopulmonary process. Electronically Signed: Camryn Grey MD at 21:28 EDT Tel , Service support , CC: ED PHYSICIAN PROVIDER; Sabrina Pena III, MD Row Boss Hoeing: Signed PROGRESS Observed: 07/15/2018 Status: COMPLETED Source: [place] 9:41 AM [facility] [place] REPOSITORY O ID: [id number] Author: Kashif Mcgarry Service: (none) Author Type: Physician Income Tax Return Preparer Type: Progress Notes Filed: 07/15/2018 10:12 AM Note Text: Chief Complaint Patient presents with: Stomach issues HPI Leslie De León is a 43 year old female who presents here today for Above Complaints.. For about month patient has had worsening reflux symptoms. States stomach is always upset Belching frequently. Has had vomiting episodes Currently taking 40mg of prilosec, carafate BID. She is also taking prepto. Vertigo symptoms with head movement for about 1 month. No improvement Past medical history, appointments, medications, allergies reviewed. Previous Medical History PAST MEDICAL HISTORY Diagnosis Date - Abnormal glandular Papanicolaou smear of cervix Abn. Pap smear (cervix) - Acute myopericarditis 2011 cardiomyopathy - Dysthymic disorder Depression (non-psychotic) - Hypertension - Incidental lung nodule, > 3mm and < 8mm 03/24/2017 03/17/17: 7.5 mm nodule RLL - Migraine with aura and without status migrainosus, not intractable 01/09/2016 - Morbid obesity due to excess calories (HCC) 03/24/2017 - Protein S deficiency (HCC) - Pulmonary embolus (HCC) 2007 left lung, after delivery with cardiomyopathy - RLL pneumonia (HCC) 03/10/2017 - Unspecified asthma(493.90) - Urinary calculus, unspecified 2004 Renal stones Previous Surgical History PAST SURGICAL HISTORY Procedure Laterality Date - HYSTEROSCOPY WBX WWO D AND C ANDOR POLYPECTOMY 2013 - INT REPAIR SCALP,WILLARD,TRUNK 7.6-12.5CM 02/21/07 RIGHT - INT REPAIR SCALP,WILLARD,TRUNK 7.6-12.5CM 02/21/07 LEFT - LAP CHOLECYSTECT/CHOLANGIOGRAPHY 10-27-11 - LAPAROSCOPIC TUBAL LIGATION/RING/CLIP 04/03/2014 filshie clips - LAPAROSCOPY, SURGICAL, URETEROLITHO - PAST SURGICAL HISTORY OF 2007 heart cath at [facility] by Dr. Aburto - REM LESION TRUNK,ARM,LEG 0.6 -1.0CM 01/26/07 Exc. right axillary and right ant. thigh lesions - REM LESION TRUNK,ARM,LEG > 4.0CM 02/21/07 RIGHT - REM LESION TRUNK,ARM,LEG > 4.0CM 02/21/07 LEFT - THERMAL ENDOMETRIAL ABLATION 04/03/2014 thermachoice ablation Family History FAMILY HISTORY Problem Relation Age of Onset - Cancer Mother UTERUS - Diabetes Mother - Hypertension Mother - Diabetes Father - Heart Father - Hypertension Father - Developmental problem Maternal Aunt - Hypertension Maternal Grandmother - Colon Cancer Maternal Grandfather - Hypertension Maternal Grandfather - Diabetes Maternal Grandfather - Heart Maternal Grandfather - Diabetes Maternal Grandmother - Diabetes Paternal Grandmother - Diabetes Paternal Grandfather - Hearing Loss Paternal Grandfather - Hearing Loss Daughter - COPD Maternal Grandfather - Thyroid Mother - Heart Paternal Grandmother GA - other (Pancreatitis [Other]) Mother Patient Allergies ALLERGIES Allergen Reactions - Penicillins Hives - Tramadol Vomiting Current Medications Current Outpatient Prescriptions on File Prior to Visit: venlafaxine ER (EFFEXOR XR) 37.5 mg 24 hr capsule Take 1 capsule by mouth once daily. topiramate (TOPAMAX) 25 mg tablet Take 2 tablets by mouth twice daily. rizatriptan (MAXALT PROPELLANT CHARGE ZONE ASSEMBLER) 10 mg disintegrating tablet Take 1 tablet by mouth as needed. May repeat in 2 hours if needed, Maximum dose=30 mg/24 hours ketorolac (TORADOL) 10 mg tablet Take 1 tablet by mouth every 6 hours as needed. Has tolerated Toradol injection in office. omeprazole (PRILOSEC) 20 mg capsule Take 1 capsule by mouth daily before breakfast. 1/2 hr before meal. hydroCHLOROthiazide (HYDRODIURIL, ESIDRIX) 25 mg tablet Take 1 tablet by mouth once daily. fluticasone-salmeterol (ADVAIR DISKUS) 100-50 mcg/dose dsdv Inhale 1 Puff as instructed twice daily. Rinse mouth out after use with water. albuterol HFA (PROAIR HFA) 90 mcg/actuation inhaler Inhale 2 Puffs as instructed every 4 hours as needed. LORazepam (ATIVAN) 0.5 mg tab Take 1 tablet by mouth twice daily as needed (anxiety). citalopram (CELEXA) 20 mg tablet Take 1.5 tablets by mouth once daily. promethazine (PHENERGAN) 12.5 mg tablet Take 1 tablet by mouth every 6 hours as needed. NIFEdipine ER (PROCARDIA XL) 30 mg 24 hr tablet Take 1 tablet by mouth once daily. metroNIDAZOLE (METROGEL VAGINAL) 0.75 % Vaginal Gel Twice weekly vaginally x 6 months after initial course of flagyl fluticasone (FLONASE) 50 mcg/actuation nasal spray Use 2 Sprays in each nostril once daily. No current facility-administered medications on file prior to visit. 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 [employer] Social History Main Topics Smoking status: Former Smoker Packs/day: 0.50 Years: 16.00 Types: Cigarettes Quit date: 07/19/2013 Smokeless tobacco: Never Used Alcohol use: Yes 1.5 oz/week Glasses of Wine (5oz): 1 per week Comment: Rarely Drug use: No Sexual activity: Yes Partners with: Male control/protection: Tubal Ligation Comment: Theremachoice Ablation Social History Narrative Blood type: A neg Ab screen gel: neg Review of Symptoms REVIEW OF SYSTEMS see hpi EXAM: BP 101/64 Pulse 94 Resp 16 Wt 118.8 kg (262 lb) LMP 10/13/2011 BMI 44.97 kg/m? General Appearance: Well appearing, alert, in no acute distress, well-hydrated, well nourished.. Ears: External ears normal, canals clear, tms with mild bulging. No erythema. Lungs: Lungs clear to auscultation. No wheezing, rhonchi, rales. Heart: RRR without murmur, gallop, or rubs. No ectopy. Abdomen: general tenderness throughout. No rebound or guarding. BS + . Peripheral Pulses: Normal. Neurologic:+dixhall pike with nystagmus. CN2-12 grossly intact. Gait normal. Reflexes normal and symmetric. Sensation intact.. Health Maintenance List INFLUENZA(1) due on 06/18/2018 MAMMOGRAM due on 08/21/2018 ANNUAL PCP TEAM CHRONIC DISEASE VISIT due on 05/02/2019 BP CONTROLLED (<130/80) due on 05/02/2019 PAP EVERY 5 YEARS due on 09/04/2021 HPV EVERY 5 YEARS due on 09/04/2021 DTAP,TDAP,TD(3 - Td) due on 12/29/2027 Data reviewed ER report ASSESSMENT/PLAN: 1. Gastritis without bleeding, unspecified chronicity, unspecified gastritis type - ICD9: 535.50, ICD10: K29.70 (primary diagnosis) Continue prilosec Increase carafate to qid Start zantac Consult for scopes to gen surgery - CONSULT TO GASTROENTEROLOGY 2. GERD without esophagitis - ICD9: 530.81, ICD10: K21.9 - As above - CONSULT TO GASTROENTEROLOGY 3. BPPV (benign paroxysmal positional vertigo), unspecified laterality - ICD9: 386.11, ICD10: H81.10 Consult Physical Therapy - CONSULT TO PHYSICAL THERAPY Follow up with me prn. JUDI MCGARRY PA-C CNOV Observed: 07/15/2018 Status: COMPLETED Source: [place] 9:20 AM [facility] REPOSITORY Office Visit (FAMPWS) LESLIE DE LEÓN ([id number]) 1975 F Date Time Provider Department 07/15/18 9:20 AM NETTA MCGARRY) FAMPWS During your visit today, we recorded the following information about you: Pulse Respiration Blood pressure Weight 94/minute 16/minute 101/64 118.8 kg JUDI MCGARRY PA-C 07/15/2018 10:12 AM Signed Chief Complaint Patient presents with: Stomach issues HPI Leslie De León is a 43 year old female who presents here today for Above Complaints.. For about month patient has had worsening reflux symptoms. States stomach is always upset Belching frequently. Has had vomiting episodes Currently taking 40mg of prilosec, carafate BID. She is also taking prepto. Vertigo symptoms with head movement for about 1 month. No improvement Past medical history, appointments, medications, allergies reviewed. Previous Medical History PAST MEDICAL HISTORY Diagnosis Date - Abnormal glandular Papanicolaou smear of cervix Abn. Pap smear (cervix) - Acute myopericarditis 2011 cardiomyopathy - Dysthymic disorder Depression (non-psychotic) - Hypertension - Incidental lung nodule, > 3mm and < 8mm 03/24/2017 03/17/17: 7.5 mm nodule RLL - Migraine with aura and without status migrainosus, not intractable 01/09/2016 - Morbid obesity due to excess calories (HCC) 03/24/2017 - Protein S deficiency (HCC) - Pulmonary embolus (HCC) 2007 left lung, after delivery with cardiomyopathy - RLL pneumonia (HCC) 03/10/2017 - Unspecified asthma(493.90) - Urinary calculus, unspecified 2004 Renal stones Previous Surgical History PAST SURGICAL HISTORY Procedure Laterality Date - HYSTEROSCOPY WBX WWO D AND C ANDOR POLYPECTOMY 2013 - INT REPAIR SCALP,WILLARD,TRUNK 7.6-12.5CM 02/21/07 RIGHT - INT REPAIR SCALP,WILLARD,TRUNK 7.6-12.5CM 02/21/07 LEFT - LAP CHOLECYSTECT/CHOLANGIOGRAPHY 10-27-11 - LAPAROSCOPIC TUBAL LIGATION/RING/CLIP 04/03/2014 filshie clips - LAPAROSCOPY, SURGICAL, URETEROLITHO - PAST SURGICAL HISTORY OF 2007 heart cath at [facility] by Dr. Aburto - REM LESION TRUNK,ARM,LEG 0.6 -1.0CM 01/26/07 Exc. right axillary and right ant. thigh lesions - REM LESION TRUNK,ARM,LEG > 4.0CM 02/21/07 RIGHT - REM LESION TRUNK,ARM,LEG > 4.0CM 02/21/07 LEFT - THERMAL ENDOMETRIAL ABLATION 04/03/2014 thermachoice ablation Family History FAMILY HISTORY Problem Relation Age of Onset - Cancer Mother UTERUS - Diabetes Mother - Hypertension Mother - Diabetes Father - Heart Father - Hypertension Father - Developmental problem Maternal Aunt - Hypertension Maternal Grandmother - Colon Cancer Maternal Grandfather - Hypertension Maternal Grandfather - Diabetes Maternal Grandfather - Heart Maternal Grandfather - Diabetes Maternal Grandmother - Diabetes Paternal Grandmother - Diabetes Paternal Grandfather - Hearing Loss Paternal Grandfather - Hearing Loss Daughter - COPD Maternal Grandfather - Thyroid Mother - Heart Paternal Grandmother GA - other (Pancreatitis [Other]) Mother Patient Allergies ALLERGIES Allergen Reactions - Penicillins Hives - Tramadol Vomiting Current Medications Current Outpatient Prescriptions on File Prior to Visit: venlafaxine ER (EFFEXOR XR) 37.5 mg 24 hr capsule Take 1 capsule by mouth once daily. topiramate (TOPAMAX) 25 mg tablet Take 2 tablets by mouth twice daily. rizatriptan (MAXALT PROPELLANT CHARGE ZONE ASSEMBLER) 10 mg disintegrating tablet Take 1 tablet by mouth as needed. May repeat in 2 hours if needed, Maximum dose=30 mg/24 hours ketorolac (TORADOL) 10 mg tablet Take 1 tablet by mouth every 6 hours as needed. Has tolerated Toradol injection in office. omeprazole (PRILOSEC) 20 mg capsule Take 1 capsule by mouth daily before breakfast. 1/2 hr before meal. hydroCHLOROthiazide (HYDRODIURIL, ESIDRIX) 25 mg tablet Take 1 tablet by mouth once daily. fluticasone-salmeterol (ADVAIR DISKUS) 100-50 mcg/dose dsdv Inhale 1 Puff as instructed twice daily. Rinse mouth out after use with water. albuterol HFA (PROAIR HFA) 90 mcg/actuation inhaler Inhale 2 Puffs as instructed every 4 hours as needed. LORazepam (ATIVAN) 0.5 mg tab Take 1 tablet by mouth twice daily as needed (anxiety). citalopram (CELEXA) 20 mg tablet Take 1.5 tablets by mouth once daily. promethazine (PHENERGAN) 12.5 mg tablet Take 1 tablet by mouth every 6 hours as needed. NIFEdipine ER (PROCARDIA XL) 30 mg 24 hr tablet Take 1 tablet by mouth once daily. metroNIDAZOLE (METROGEL VAGINAL) 0.75 % Vaginal Gel Twice weekly vaginally x 6 months after initial course of flagyl fluticasone (FLONASE) 50 mcg/actuation nasal spray Use 2 Sprays in each nostril once daily. No current facility-administered medications on file prior to visit. 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 [employer] Social History Main Topics Smoking status: Former Smoker Packs/day: 0.50 Years: 16.00 Types: Cigarettes Quit date: 07/19/2013 Smokeless tobacco: Never Used Alcohol use: Yes 1.5 oz/week Glasses of Wine (5oz): 1 per week Comment: Rarely Drug use: No Sexual activity: Yes Partners with: Male control/protection: Tubal Ligation Comment: Theremachoice Ablation Social History Narrative Blood type: A neg Ab screen gel: neg Review of Symptoms REVIEW OF SYSTEMS see hpi EXAM: BP 101/64 Pulse 94 Resp 16 Wt 118.8 kg (262 lb) LMP 10/13/2011 BMI 44.97 kg/m? General Appearance: Well appearing, alert, in no acute distress, well-hydrated, well nourished.. Ears: External ears normal, canals clear, tms with mild bulging. No erythema. Lungs: Lungs clear to auscultation. No wheezing, rhonchi, rales. Heart: RRR without murmur, gallop, or rubs. No ectopy. Abdomen: general tenderness throughout. No rebound or guarding. BS + . Peripheral Pulses: Normal. Neurologic:+dixhall pike with nystagmus. CN2-12 grossly intact. Gait normal. Reflexes normal and symmetric. Sensation intact.. Health Maintenance List INFLUENZA(1) due on 06/18/2018 MAMMOGRAM due on 08/21/2018 ANNUAL PCP TEAM CHRONIC DISEASE VISIT due on 05/02/2019 BP CONTROLLED (<130/80) due on 05/02/2019 PAP EVERY 5 YEARS due on 09/04/2021 HPV EVERY 5 YEARS due on 09/04/2021 DTAP,TDAP,TD(3 - Td) due on 12/29/2027 Data reviewed ER report ASSESSMENT/PLAN: 1. Gastritis without bleeding, unspecified chronicity, unspecified gastritis type - ICD9: 535.50, ICD10: K29.70 (primary diagnosis) Continue prilosec Increase carafate to qid Start zantac Consult for scopes to gen surgery - CONSULT TO GASTROENTEROLOGY 2. GERD without esophagitis - ICD9: 530.81, ICD10: K21.9 - As above - CONSULT TO GASTROENTEROLOGY 3. BPPV (benign paroxysmal positional vertigo), unspecified laterality - ICD9: 386.11, ICD10: H81.10 Consult Physical Therapy - CONSULT TO PHYSICAL THERAPY Follow up with ga prn. JUDI MCGARRY PA-C Referring Provider: SELF [[id number]] Allergies As of Date: 07/15/2018 Noted Allergy Reaction PENICILLINS 07/02/2005 4 - Hives TRAMADOL 01/30/2008 11 - Vomiting Date Reviewed: 07/15/2018 Reviewed by: Selena ([facility]) DOMONIQUE Hendricks - Fully Assessed Reason for Visit: Stomach issues [Other] Primary Visit Diagnosis:Gastritis without bleeding, unspecified chronicity, unspecified gastritis type [K29.70] Other Visit Diagnoses:GERD without esophagitis [K21.9] BPPV (benign paroxysmal positional vertigo), unspecified laterality [H81.10] Order(s):CONSULT TO GASTROENTEROLOGY [9010] Order #: [id number]: 1 CONSULT TO PHYSICAL THERAPY [9032] Order #: [id number]: 1 ranitidine (ZANTAC) 150 mg tabletTake 1 tablet by mouth twice daily.Disp: 60 tabletRfl: 1 Prescriptions as of 07/15/2018 Sig: SUCRALFATE 1 GRAM TABLET Take 1 tablet by mouth four t* VENLAFAXINE ER 37.5 MG CAPSUL* Take 1 capsule by mouth once * TOPIRAMATE 25 MG TABLET Take 2 tablets by mouth twice* RIZATRIPTAN 10 MG DISINTEGRAT* Take 1 tablet by mouth as nee* KETOROLAC 10 MG TABLET Take 1 tablet by mouth every * OMEPRAZOLE 20 MG CAPSULE,MIGUEL ANGEL* Take 1 capsule by mouth daily* HYDROCHLOROTHIAZIDE 25 MG TAB* Take 1 tablet by mouth once d* FLUTICASONE 100 MCG-SALMETERO* Inhale 1 Puff as instructed t* ALBUTEROL SULFATE HFA 90 MCG/* Inhale 2 Puffs as instructed * LORAZEPAM 0.5 MG TABLET Take 1 tablet by mouth twice * CITALOPRAM 20 MG TABLET Take 1.5 tablets by mouth onc* PROMETHAZINE 12.5 MG TABLET Take 1 tablet by mouth every * NIFEDIPINE ER 30 MG TABLET,EX* Take 1 tablet by mouth once d* METRONIDAZOLE 0.75 % VAGINAL * Twice weekly vaginally x 6 mo* FLUTICASONE 50 MCG/ACTUATION * Use 2 Sprays in each nostril * RANITIDINE 150 MG TABLET Take 1 tablet by mouth twice * Problem List As Of Date 07/15/2018 Noted Resolved Calculus of kidney [N20.0] INVALID FOR*03/28/2014 HIDRADENITIS [L73.2] INVALID FOR* Unspecified asthma(493.90) [J45.909] 03/28/2014 More... Hypopotassemia [E87.6] INVALID FOR*03/28/2014 Biliary dyskinesia [K82.8] INVALID FOR*03/28/2014 Acute myopericarditis [I30.9] INVALID FOR*03/28/2014 Migraine with aura and without status migrainos*INVALID FOR* Chronic pelvic pain in female [R10.2, G89.29] INVALID FOR* Acute myopericarditis [I30.9] INVALID FOR* Incidental lung nodule, > 3mm and < 8mm [R91.1] INVALID FOR* More... Hot flashes [R23.2] INVALID FOR* Morbid obesity due to excess calories (HCC) [E6*INVALID FOR* Prescriptions ordered this encounter Disp Refills Start End RANITIDINE 150 MG TABLET 60 t* 1 07/15/2018 Route: ORAL Sig: Take 1 tablet by mouth twice daily. Encounter Status:Closed by JUDI CASTELLANOS on 07/15/18 EMERGENCY DEPARTMENT Observed: 06/28/2018 Status: F Source: [place] SUMMARY 9:24 PM [facility] REPOSITORY [facility] Medical Records Department [address] [place] [address] Emergency Department Summary 06/28/18 191 MR#: [id number] Acct: [id number] Name: LESLIE DE LEÓN Rep #: [id number] : 1975 43 From: Guanakito Quesada MD PCP: Sabrina Pena III, MD Status: REG ER - ER Visit Summary Date of Service: 06/28/18 Chief Complaint: Heartburn/dizziness History of Present Illness: The patient is a 43 F with heartburn. She states for the past 2 weeks she has been having a lot of heartburn. Worse at night when she lays down. She feels a weird taste in the back of her throat. She has been on daily Prilosec for many years. She tried Pepto-Bismol but it did not help. She feels bloated and nauseous. Denies any sharp abdominal pains. She also feels dizzy. She has a history of vertigo and this feels similar. She has not taken anything for this. Denies any falls. No fevers or any other recent illnesses. Physical Examination: Vital signs reviewed. HEENT exam unremarkable. Heart is regular rate and rhythm without murmurs. Lungs are clear to auscultation. Abdomen is soft with tenderness in the epigastric region extremities reveal no edema. Skin exam normal. Neurologic exam normal. Test Results: Labs are normal except for glucose of 129 Emergency Department Course and Treatment: I initially treated the patient with a GI cocktail and meclizine. She did not feel better so she was given p.o. Valium IV Phenergan. At this point I feel that her symptoms are likely due to GERD as well as her vertigo which she has had previously. I will give her some Valium for home. I will also add Carafate to her Prilosec. She will follow-up with her primary care physician Treatment Plan: [] Disposition: Discharge Impression: GERD, vertigo This note was generated with Procuricsation software. It may contain incorrect words, spelling, and punctuation that were not noted in review of the chart prior to signing ED Disposition - Plan for ED Patient: Disposition: Home or Assisted Living Chief Complaint: Dizziness Instructions: ED BPV Vertigo Prescriptions: proMETHazine tablet [Phenergan] 25 mg PO Q6H PRN PRN #10 tab PRN Reason: Nausea Diazepam [Valium] 2 mg PO TID PRN PRN #10 tab PRN Reason: Vertigo Sucralfate [Carafate] 1 gm PO 4X/DAY #60 tab Referrals: Sabrina Pena III, MD [Primary Care Provider] - What to do if you have Problems For any increased pain, shortness of breath, bleeding, nausea or vomiting, chest pain, or any unexpected problems, contact your Primary Care Provider. Call [facility] ([phone]) or report to the closest Emergency Room. Call 911 if necessary. 06/28/182123 <Electronically signed by Guanakito Quesada MD> Date Guanakito Quesada MD Cosigner Signature (If Indicated): Date CC: Sabrina Pena III, MD DISCHARGE INSTRUCTION Observed: 06/28/2018 Status: F Source: [place] 9:24 PM [facility] REPOSITORY [facility] Medical Records Department [address] [place] [address] Discharge Instruction 06/28/182121 MR#: [id number] Acct: [id number] Name: LESLIE DE LEÓN Sushant Rep #: [id number] : 1975 43 From: Guanakito Quesada MD PCP: Sabrina Pena III, MD Status: REG ER ED Disposition - Plan for ED Patient: Disposition: Home or Assisted Living Chief Complaint: Dizziness Instructions: ED BPV Vertigo Prescriptions: proMETHazine tablet [Phenergan] 25 mg PO Q6H PRN PRN #10 tab PRN Reason: Nausea Diazepam [Valium] 2 mg PO TID PRN PRN #10 tab PRN Reason: Vertigo Sucralfate [Carafate] 1 gm PO 4X/DAY #60 tab Referrals: Sabrina Pena III, MD [Primary Care Provider] - What to do if you have Problems For any increased pain, shortness of breath, bleeding, nausea or vomiting, chest pain, or any unexpected problems, contact your Primary Care Provider. Call [facility] ([phone]) or report to the closest Emergency Room. Call 911 if necessary. 06/28/182123 <Electronically signed by Guanakito Quesada MD> Date Guanakito Quesada MD Cosigner Signature (If Indicated): Date CC: Sabrina Pena III, MD CBC W/DIFF, AUTOMATED Collected: 06/28/2018 Status: F Source: [place] 8:15 PM [facility] REPOSITORY TYPE CODE TESTS RESULT OUT OF RANGE REFERENCE UNITS LAB L100.1000 4.4-11.0 K/mm3 Normal WBC 6.3 LAB L100.1200 4.2-5.4 M/mm3 Normal RBC 4.42 LAB L100.1300 12.0-15.0 g/dl Normal HGB 13.8 LAB L100.1400 37-47 % Normal HCT 40.7 LAB L100.1500 81-99 fL Normal MCV 92.1 LAB L100.1600 27.0-32.0 pg Normal MCH 31.2 LAB L100.1700 32-36 g/gl Normal MCHC 33.9 LAB L100.1810 11.6-14.6 % Normal RDW CV 12.2 LAB L100.1820 35.1-43.9 fl Normal RDW SD 41.3 LAB L100.1900 150-450 K/mm3 Normal PLT 180 LAB L100.2000 6.2-12.0 fl Normal MPV 10.3 LAB L100.2100 47-70 % Normal NEUT% 58.3 LAB L100.2200 19-41 % Normal LY% 33.4 LAB L100.2300 0-10 % Normal MONO% 5.6 LAB L100.2400 0-5 % Normal EO% 2.2 LAB L100.2500 0-1 % Normal BASO% 0.3 LAB L100.2550 0.0-0.9 % Normal IM GRAN % 0.200 Result Comment: IG% - Immature Granulocytes (promyelocytes, myelocytes and metamyelocytes) > 1% indicates that a LEFT SHIFT is Present. LAB L100.2620 2.0-7.7 X10 3/uL Normal Absolute Neut 3.7 LAB L100.2720 0.83-4.51 X10 3/ul Normal Absolute Lymph 2.10 Performed By: #### L100.0100 #### [facility] [address] [place], [address] COMPREHENSIVE METABOLIC Collected: 06/28/2018 Status: F Source: [facility] 8:15 PM [facility] REPOSITORY TYPE CODE TESTS RESULT OUT OF RANGE REFERENCE UNITS LAB L501.0100 74-106 mg/dL High GLU 129 Result Comment: Fasting Glucose result greater than or equal to 126 mg/dL suggests DIABETES MELLITUS per A.D.A. criteria. Please note revised GLUCOSE reference range effective 2017. LAB L501.1000 7-18 mg/dL Normal BUN 10 LAB L501.1100 0.55-1.02 mg/dL Normal CREAT,SERUM 0.84 Result Comment: The validity of the calculated GFR AND GFRAA in patients over 70 years has not been determined. Clinical correlation is essential. LAB L501.1110 >60 mL/min Normal EST GFR 79 Result Comment: Non- GFR Calc LAB L501.1115 >60 mL/min Normal EST GFR - AA 96 Result Comment: GFR Calc LAB L501.1255 ml/min Normal Estimated CRCL 76.11 LAB L501.1300 10-20 RATIO Normal BUN/CRE 11.9 LAB L501.1500 6.4-8. g/dL Normal 2 T PROT 6.9 LAB L501.1800 3.2-5. g/dL Low 0 ALB 3.1 LAB L501.1950 2.2-4. g/dL Normal 2 GLOB 3.8 LAB L501.2000 0.9-2. RATIO Low 4 A/G 0.8 LAB L501.2200 8.5-10 mg/dL Normal .1 CA 8.7 LAB L501.4100 15-37 U/L Normal AST 21 LAB L501.4305 45-117 U/L Normal ALK P 57 LAB L501.4405 13-56 U/L Normal ALT 40 LAB L501.4600 0.20-1 mg/dL Normal .00 T BILI 0.30 LAB L501.5300 136-14 mmol/L Normal 5 NA 139 LAB L501.5600 3.5-5. mmol/L Normal 1 K 4.1 LAB L501.5900 98-107 mmol/L Normal CL 105 LAB L501.6100 21.0-3 mmol/L Normal 2.0 CO2 27.0 LAB L501.6200 5-15 Normal GAP 7 Performed By: #### L500.4050, L501.2450 #### [facility] [address] [place], [address] LIPASE Collected: 06/28/2018 Status: F Source: [place] 8:15 PM [facility] REPOSITORY TYPE CODE TESTS RESULT OUT OF RANGE REFERENCE UNITS LAB L501.2450 73-393 U/L Normal LIPASE 323 Performed By: #### L500.4050, L501.2450 #### [facility] [address] [place], [address] DISCHARGE INSTRUCTION Observed: 05/28/2018 Status: F Source: [place] 1:51 PM [facility] REPOSITORY [facility] Medical Records Department [address] [place] [address] Discharge Instruction 05/28/18 1350 MR#: [id number] Acct: [id number] Name: LESLIE DE LEÓN Rep #: [id number] : 1975 43 From: Guanakito Quesada MD PCP: Sabrina Pena III, MD Status: PRE ER ED Disposition - Plan for ED Patient: Disposition: Home or Assisted Living Chief Complaint: Upper Extremity Injury Instructions: ED Cervical Radiculopathy Prescriptions: Naproxen [Naprosyn] 500 mg PO BID PRN #20 tab Prednisone [Deltasone] 40 mg PO DAILY #10 tab Referrals: Sabrina Pena III, MD [Primary Care Provider] - What to do if you have Problems For any increased pain, shortness of breath, bleeding, nausea or vomiting, chest pain, or any unexpected problems, contact your Primary Care Provider. Call [facility] ([phone]) or report to the closest Emergency Room. Call 911 if necessary. 05/28/18 1351 <Electronically signed by Guanakito Quesada MD> Date Guanakito Quesada MD Cosigner Signature (If Indicated): Date CC: Sabrina Pena III, MD EMERGENCY DEPARTMENT Observed: 05/28/2018 Status: F Source: [place] SUMMARY 1:50 PM [facility] REPOSITORY [facility] Medical Records Department [address] [place] [address] Emergency Department Summary 05/28/18 1348 MR#: [id number] Acct: [id number] Name: LESLIE DE LEÓN Rep #: [id number] : 1975 43 From: Guanakito Quesada MD PCP: Sabrina Pena III, MD Status: PRE ER - ER Visit Summary Date of Service: 05/28/18 Chief Complaint: Right arm pain History of Present Illness: The patient is a 43 F with right arm pain. It started 2 days ago. She has pain over the lateral part of her upper arm. She denies any injury or trauma to the area. She describes as an aching. She has also some mild pain in the neck. She has some mild swelling that she describes. Tylenol and ibuprofen are not helping. She has a history of factor V Leiden and PE but is not any anticoagulation at this time. Physical Examination: Vital signs reviewed. Neck exam reveals some mild right paraspinal tenderness. The right arm is tender diffusely from the shoulder down to the forearm. There is no swelling. It is warm to touch. She has 2+ radial pulses. Less than 2-second capillary refill. Her sensation is normal. Test Results: None performed Emergency Department Course and Treatment: Patient likely has a cervical radiculopathy. I have very low suspicion for an upper extremity DVT as she has no swelling. She has no tenderness on the inner part of the arm. I will treat her with prednisone and naproxen at home. She will follow-up with her PCP. Treatment Plan: [] Disposition: Discharge Impression: Cervical radiculopathy This note was generated with Procuricsation software. It may contain incorrect words, spelling, and punctuation that were not noted in review of the chart prior to signing ED Disposition - Plan for ED Patient: Chief Complaint: Upper Extremity Injury Referrals: Sabrina Pena III, MD [Primary Care Provider] - What to do if you have Problems For any increased pain, shortness of breath, bleeding, nausea or vomiting, chest pain, or any unexpected problems, contact your Primary Care Provider. Call [facility] ([phone]) or report to the closest Emergency Room. Call 911 if necessary. 05/28/18 1350 <Electronically signed by Guanakito Quesada MD> Date Guanakito Quesada MD Cosigner Signature (If Indicated): Date CC: Sabrina Pena III, MD WOUND Observed: 05/02/2018 Status: F Source: [place] CULTURE/STAIN 3:41 PM [facility] REPOSITORY Sp. Request/Comment: - Swab Smear Result - Moderate Gram positive cocci --> ABNORMAL ALERT Few --> ABNORMAL ALERT Gram positive bacilli --> ABNORMAL ALERT Rare --> ABNORMAL ALERT Gram negative bacilli --> ABNORMAL A LERT Moderate Polymorphonuclear leukocytes Moderate Mononuclear cells Moderate Red Blood Cells Culture Result - Few Normal urogenital dimitrios No Staphylococcus aureus isolated. No Yeast Isolated. No Neisseria gonorrhoeae isolated. For optimal sensitivity, testing for Neisseria gonorrhoeae should be performed by molecular methods. Performed By: #### WCUL #### [facility] [address] [place], [place] [address] LISSA Observed: 05/02/2018 Status: COMPLETED Source: [place] 3:00 PM [facility] REPOSITORY Office Visit ([facility]) LESLIE DE LEÓN ([id number]) 1975 F Date Time Provider Department 05/02/18 3:00 PM ALANA RAI (LEONIE) [facility] During your visit today, we recorded the following information about you: Blood pressure Weight 110/60 114.3 kg Alana Rai APRN.CNP 05/02/2018 4:05 PM Signed Leslie L Sarthak is a 42 year old female who presents for problem visit Labial cyst for 3 days. HPI: pt states that she was started on Bactrim last week for a UTI- that is getting better but on Wed/Wed she noticed a lump on her labia and now it is larger and very painful. Denies any fever, chills, or drainage. PAST MEDICAL HISTORY Diagnosis Date - Abnormal glandular Papanicolaou smear of cervix Abn. Pap smear (cervix) - Acute myopericarditis 2011 cardiomyopathy - Dysthymic disorder Depression (non-psychotic) - Hypertension - Incidental lung nodule, > 3mm and < 8mm 03/24/2017 03/17/17: 7.5 mm nodule RLL - Migraine with aura and without status migrainosus, not intractable 01/09/2016 - Morbid obesity due to excess calories (HCC) 03/24/2017 - Protein S deficiency (HCC) - Pulmonary embolus (HCC) 2007 left lung, after delivery with cardiomyopathy - RLL pneumonia (HCC) 03/10/2017 - Unspecified asthma(493.90) - Urinary calculus, unspecified 2004 Renal stones PAST SURGICAL HISTORY Procedure Laterality Date - HYSTEROSCOPY WBX WWO D AND C ANDOR POLYPECTOMY 2013 - INT REPAIR SCALP,WILLARD,TRUNK 7.6-12.5CM 02/21/07 RIGHT - INT REPAIR SCALP,WILLARD,TRUNK 7.6-12.5CM 02/21/07 LEFT - LAP CHOLECYSTECT/CHOLANGIOGRAPHY 10-27-11 - LAPAROSCOPIC TUBAL LIGATION/RING/CLIP 04/03/2014 filshie clips - LAPAROSCOPY, SURGICAL, URETEROLITHO - PAST SURGICAL HISTORY OF 2007 heart cath at [facility] by Dr. Aburto - REM LESION TRUNK,ARM,LEG 0.6 -1.0CM 01/26/07 Exc. right axillary and right ant. thigh lesions - REM LESION TRUNK,ARM,LEG > 4.0CM 02/21/07 RIGHT - REM LESION TRUNK,ARM,LEG > 4.0CM 02/21/07 LEFT - THERMAL ENDOMETRIAL ABLATION 04/03/2014 thermachoice ablation FAMILY HISTORY Problem Relation Age of Onset - Cancer Mother UTERUS - Diabetes Mother - Hypertension Mother - Diabetes Father - Heart Father - Hypertension Father - Developmental problem Maternal Aunt - Hypertension Maternal Grandmother - Colon Cancer Maternal Grandfather - Hypertension Maternal Grandfather - Diabetes Maternal Grandfather - Heart Maternal Grandfather - Diabetes Maternal Grandmother - Diabetes Paternal Grandmother - Diabetes Paternal Grandfather - Hearing Loss Paternal Grandfather - Hearing Loss Daughter - COPD Maternal Grandfather - Thyroid Mother - Heart Paternal Grandmother GA - Pancreatitis [Other] [OTHER] Mother Social History Marital status: Spouse name: AGATA Years of education: 14+ Number of children: 3 Occupational History 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 [employer] Social History Main Topics Smoking status: Former Smoker Packs/day: 0.50 Years: 16.00 Types: Cigarettes Quit date: 07/19/2013 Smokeless tobacco: Never Used Alcohol use: Yes 1.5 oz/week Glasses of Wine (5oz): 1 per week Comment: Rarely Drug use: No Sexual activity: Yes Partners with: Male control/protection: Tubal Ligation Comment: Theremachoice Ablation Social History Narrative Blood type: A neg Ab screen gel: neg Current Outpatient Prescriptions: venlafaxine ER (EFFEXOR XR) 37.5 mg 24 hr capsule Take 1 capsule by mouth once daily. topiramate (TOPAMAX) 25 mg tablet Take 2 tablets by mouth twice daily. rizatriptan (MAXALT PROPELLANT CHARGE ZONE ASSEMBLER) 10 mg disintegrating tablet Take 1 tablet by mouth as needed. May repeat in 2 hours if needed, Maximum dose=30 mg/24 hours ketorolac (TORADOL) 10 mg tablet Take 1 tablet by mouth every 6 hours as needed. Has tolerated Toradol injection in office. omeprazole (PRILOSEC) 20 mg capsule Take 1 capsule by mouth daily before breakfast. 1/2 hr before meal. hydroCHLOROthiazide (HYDRODIURIL, ESIDRIX) 25 mg tablet Take 1 tablet by mouth once daily. fluticasone-salmeterol (ADVAIR DISKUS) 100-50 mcg/dose dsdv Inhale 1 Puff as instructed twice daily. Rinse mouth out after use with water. albuterol HFA (PROAIR HFA) 90 mcg/actuation inhaler Inhale 2 Puffs as instructed every 4 hours as needed. LORazepam (ATIVAN) 0.5 mg tab Take 1 tablet by mouth twice daily as needed (anxiety). citalopram (CELEXA) 20 mg tablet Take 1.5 tablets by mouth once daily. promethazine (PHENERGAN) 12.5 mg tablet Take 1 tablet by mouth every 6 hours as needed. NIFEdipine ER (PROCARDIA XL) 30 mg 24 hr tablet Take 1 tablet by mouth once daily. metroNIDAZOLE (METROGEL VAGINAL) 0.75 % Vaginal Gel Twice weekly vaginally x 6 months after initial course of flagyl fluticasone (FLONASE) 50 mcg/actuation nasal spray Use 2 Sprays in each nostril once daily. No current facility-administered medications for this visit. Allergies As of Date: 05/02/2018 Allergen Noted Reaction PENICILLINS 07/02/2005 Hives TRAMADOL 01/30/2008 Vomiting Fully Assessed 05/02/2018 REVIEW OF SYSTEMS Abdomen: No bloating, early satiety, indigestion, or increased flatulence. No abdominal pain, nausea, vomiting, diarrhea, or constipation. Bladder: No dysuria, gross hematuria, urinary frequency, urinary urgency, or incontinence. Expanded ROS: N/A Allergies and current medication updated:Yes EXAM: LMP 10/13/2011 GENERAL: pleasant, female in no apparent distress HEENT: Normocephalic, atraumatic, mucus membranes moist and no lesions CHEST: Normal inspiratory effort PELVIC: external genitalia normal, normal Bartholin's glands, urethra, Wall's glands, no cervical lesions, physiologic discharge present, normal appearing perineal body and perianal region, vulvar lesion on the right labia minora approximately 1.5 cm round NEURO: alert and oriented x3,exam grossly non-focal IANDD of the right labial cyst performed Area cleaned with betadine 1% lidocaine with epi used for local numbing serosanguinous and pus drainage expressed from cyst ASSESSMENT AND PLAN: Right labial cyst Keflex x 7 days Diflucan x 2 doses Warm soak and compresses to the area Follow up if symptoms get worst or PRN Alana Rai, PICKER FEEDER.LEAD OPERATOR Referring Provider: SELF [200] Allergies As of Date: 05/02/2018 Noted Allergy Reaction PENICILLINS 07/02/2005 4 - Hives TRAMADOL 01/30/2008 11 - Vomiting Date Reviewed: 05/02/2018 Reviewed by: Alana (Leonie) Cecelia - Fully Assessed Reason for Visit: Cyst [260] Primary Visit Diagnosis:Labial cyst [N90.7] Order(s):cephALEXin (KEFLEX) 500 mg capsuleTake 1 capsule by mouth four times daily for 7 days.Disp: 28 capsuleRfl: 0 fluconazole (DIFLUCAN) 150 mg tabletTake 1 tablet by mouth one time only for 1 dose. Then repeat at the end of antibiotic treatmentDisp: 2 tabletRfl: 0 WOUND CULTURE AND GRAM STAIN [SQWCUL] Order #: [id number] Prescriptions as of 05/02/2018 Sig: VENLAFAXINE ER 37.5 MG CAPSUL* Take 1 capsule by mouth once * TOPIRAMATE 25 MG TABLET Take 2 tablets by mouth twice* RIZATRIPTAN 10 MG DISINTEGRAT* Take 1 tablet by mouth as nee* KETOROLAC 10 MG TABLET Take 1 tablet by mouth every * OMEPRAZOLE 20 MG CAPSULE,MIGUEL ANGEL* Take 1 capsule by mouth daily* HYDROCHLOROTHIAZIDE 25 MG TAB* Take 1 tablet by mouth once d* FLUTICASONE 100 MCG-SALMETERO* Inhale 1 Puff as instructed t* ALBUTEROL SULFATE HFA 90 MCG/* Inhale 2 Puffs as instructed * LORAZEPAM 0.5 MG TABLET Take 1 tablet by mouth twice * CITALOPRAM 20 MG TABLET Take 1.5 tablets by mouth onc* PROMETHAZINE 12.5 MG TABLET Take 1 tablet by mouth every * NIFEDIPINE ER 30 MG TABLET,EX* Take 1 tablet by mouth once d* METRONIDAZOLE 0.75 % VAGINAL * Twice weekly vaginally x 6 mo* FLUTICASONE 50 MCG/ACTUATION * Use 2 Sprays in each nostril * CEPHALEXIN 500 MG CAPSULE Take 1 capsule by mouth four * FLUCONAZOLE 150 MG TABLET Take 1 tablet by mouth one ti* Problem List As Of Date 05/02/2018 Noted Resolved Calculus of kidney [N20.0] INVALID FOR*03/28/2014 HIDRADENITIS [L73.2] INVALID FOR* Unspecified asthma(493.90) [J45.909] 03/28/2014 More... Hypopotassemia [E87.6] INVALID FOR*03/28/2014 Biliary dyskinesia [K82.8] INVALID FOR*03/28/2014 Acute myopericarditis [I30.9] INVALID FOR*03/28/2014 Migraine with aura and without status migrainos*INVALID FOR* Chronic pelvic pain in female [R10.2, G89.29] INVALID FOR* Acute myopericarditis [I30.9] INVALID FOR* Incidental lung nodule, > 3mm and < 8mm [R91.1] INVALID FOR* More... Hot flashes [R23.2] INVALID FOR* Morbid obesity due to excess calories (HCC) [E6*INVALID FOR* Prescriptions ordered this encounter Disp Refills Start End CEPHALEXIN 500 MG CAPSULE 28 c* 0 05/02/2018 05/09/2018 Route: ORAL Sig: Take 1 capsule by mouth four times daily for 7 days. FLUCONAZOLE 150 MG TABLET 2 ta* 0 05/02/2018 05/02/2018 Route: ORAL Sig: Take 1 tablet by mouth one time only for 1 dose. Then repeat at the end of antibiotic treatment Encounter Status:Closed by ALANA RAI on 05/02/18 PROGRESS Observed: 05/02/2018 Status: COMPLETED Source: [place] 2:56 PM [facility] REPOSITORY O ID: [id number] Author: Alana Park) Cecelia Service: (none) Author Type: Nurse Practitioner Type: Progress Notes Filed: 05/02/2018 4:05 PM Note Text: Leslie De León is a 42 year old female who presents for problem visit Labial cyst for 3 days. HPI: pt states that she was started on Bactrim last week for a UTI- that is getting better but on Wed/Wed she noticed a lump on her labia and now it is larger and very painful. Denies any fever, chills, or drainage. PAST MEDICAL HISTORY Diagnosis Date - Abnormal glandular Papanicolaou smear of cervix Abn. Pap smear (cervix) - Acute myopericarditis 2011 cardiomyopathy - Dysthymic disorder Depression (non-psychotic) - Hypertension - Incidental lung nodule, > 3mm and < 8mm 03/24/2017 03/17/17: 7.5 mm nodule RLL - Migraine with aura and without status migrainosus, not intractable 01/09/2016 - Morbid obesity due to excess calories (HCC) 03/24/2017 - Protein S deficiency (HCC) - Pulmonary embolus (HCC) 2007 left lung, after delivery with cardiomyopathy - RLL pneumonia (HCC) 03/10/2017 - Unspecified asthma(493.90) - Urinary calculus, unspecified 2004 Renal stones PAST SURGICAL HISTORY Procedure Laterality Date - HYSTEROSCOPY WBX WWO D AND C ANDOR POLYPECTOMY 2013 - INT REPAIR SCALP,WILLARD,TRUNK 7.6-12.5CM 02/21/07 RIGHT - INT REPAIR SCALP,WILLARD,TRUNK 7.6-12.5CM 02/21/07 LEFT - LAP CHOLECYSTECT/CHOLANGIOGRAPHY 10-27-11 - LAPAROSCOPIC TUBAL LIGATION/RING/CLIP 04/03/2014 filshie clips - LAPAROSCOPY, SURGICAL, URETEROLITHO - PAST SURGICAL HISTORY OF 2007 heart cath at [facility] by Dr. Aburto - REM LESION TRUNK,ARM,LEG 0.6 -1.0CM 01/26/07 Exc. right axillary and right ant. thigh lesions - REM LESION TRUNK,ARM,LEG > 4.0CM 02/21/07 RIGHT - REM LESION TRUNK,ARM,LEG > 4.0CM 02/21/07 LEFT - THERMAL ENDOMETRIAL ABLATION 04/03/2014 thermachoice ablation FAMILY HISTORY Problem Relation Age of Onset - Cancer Mother UTERUS - Diabetes Mother - Hypertension Mother - Diabetes Father - Heart Father - Hypertension Father - Developmental problem Maternal Aunt - Hypertension Maternal Grandmother - Colon Cancer Maternal Grandfather - Hypertension Maternal Grandfather - Diabetes Maternal Grandfather - Heart Maternal Grandfather - Diabetes Maternal Grandmother - Diabetes Paternal Grandmother - Diabetes Paternal Grandfather - Hearing Loss Paternal Grandfather - Hearing Loss Daughter - COPD Maternal Grandfather - Thyroid Mother - Heart Paternal Grandmother GA - Pancreatitis [Other] [OTHER] Mother Social History Marital status: Spouse name: AGATA Years of education: 14+ Number of children: 3 Occupational History 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 [employer] Social History Main Topics Smoking status: Former Smoker Packs/day: 0.50 Years: 16.00 Types: Cigarettes Quit date: 07/19/2013 Smokeless tobacco: Never Used Alcohol use: Yes 1.5 oz/week Glasses of Wine (5oz): 1 per week Comment: Rarely Drug use: No Sexual activity: Yes Partners with: Male control/protection: Tubal Ligation Comment: Theremachoice Ablation Social History Narrative Blood type: A neg Ab screen gel: neg Current Outpatient Prescriptions: venlafaxine ER (EFFEXOR XR) 37.5 mg 24 hr capsule Take 1 capsule by mouth once daily. topiramate (TOPAMAX) 25 mg tablet Take 2 tablets by mouth twice daily. rizatriptan (MAXALT PROPELLANT CHARGE ZONE ASSEMBLER) 10 mg disintegrating tablet Take 1 tablet by mouth as needed. May repeat in 2 hours if needed, Maximum dose=30 mg/24 hours ketorolac (TORADOL) 10 mg tablet Take 1 tablet by mouth every 6 hours as needed. Has tolerated Toradol injection in office. omeprazole (PRILOSEC) 20 mg capsule Take 1 capsule by mouth daily before breakfast. 1/2 hr before meal. hydroCHLOROthiazide (HYDRODIURIL, ESIDRIX) 25 mg tablet Take 1 tablet by mouth once daily. fluticasone-salmeterol (ADVAIR DISKUS) 100-50 mcg/dose dsdv Inhale 1 Puff as instructed twice daily. Rinse mouth out after use with water. albuterol HFA (PROAIR HFA) 90 mcg/actuation inhaler Inhale 2 Puffs as instructed every 4 hours as needed. LORazepam (ATIVAN) 0.5 mg tab Take 1 tablet by mouth twice daily as needed (anxiety). citalopram (CELEXA) 20 mg tablet Take 1.5 tablets by mouth once daily. promethazine (PHENERGAN) 12.5 mg tablet Take 1 tablet by mouth every 6 hours as needed. NIFEdipine ER (PROCARDIA XL) 30 mg 24 hr tablet Take 1 tablet by mouth once daily. metroNIDAZOLE (METROGEL VAGINAL) 0.75 % Vaginal Gel Twice weekly vaginally x 6 months after initial course of flagyl fluticasone (FLONASE) 50 mcg/actuation nasal spray Use 2 Sprays in each nostril once daily. No current facility-administered medications for this visit. Allergies As of Date: 05/02/2018 Allergen Noted Reaction PENICILLINS 07/02/2005 Hives TRAMADOL 01/30/2008 Vomiting Fully Assessed 05/02/2018 REVIEW OF SYSTEMS Abdomen: No bloating, early satiety, indigestion, or increased flatulence. No abdominal pain, nausea, vomiting, diarrhea, or constipation. Bladder: No dysuria, gross hematuria, urinary frequency, urinary urgency, or incontinence. Expanded ROS: N/A Allergies and current medication updated:Yes EXAM: LMP 10/13/2011 GENERAL: pleasant, female in no apparent distress HEENT: Normocephalic, atraumatic, mucus membranes moist and no lesions CHEST: Normal inspiratory effort PELVIC: external genitalia normal, normal Bartholin's glands, urethra, Wall's glands, no cervical lesions, physiologic discharge present, normal appearing perineal body and perianal region, vulvar lesion on the right labia minora approximately 1.5 cm round NEURO: alert and oriented x3,exam grossly non-focal IANDD of the right labial cyst performed Area cleaned with betadine 1% lidocaine with epi used for local numbing serosanguinous and pus drainage expressed from cyst ASSESSMENT AND PLAN: Right labial cyst Keflex x 7 days Diflucan x 2 doses Warm soak and compresses to the area Follow up if symptoms get worst or PRN Alana Rai APRN.LEONIE PROGRESS Observed: 05/02/2018 Status: COMPLETED Source: [place] 2:28 PM [facility] REPOSITORY HNO ID: [id number] Author: Judith (Leonie) Podlogar Service: (none) Author Type: Nurse Practitioner Type: Progress Notes Filed: 05/03/2018 7:27 AM Note Text: 05/02/2018 Patient presents with: Blister: vaginsal cyst or blister , cramping ,keeping her up at night. SUBJECTIVE: This is a 42 year old that is here today for Above Complaints. [facility] for [facility], Given prescription for bactrim for 10 days. About 5 days ago developed painful bump to right vaginal area. Pain is described as burning and constant- keeping her awake at night. Has tried soaking in warm epsom salt bath with little relief. Describes area as red and inflamed. Denies drainage from area. Denies hx of STD's, change in sexual partners, vaginal discharge, other cystic/open lesions Positive for low grade fever, hot/cold flashes, abdominal cramping, dysuria- believes related to bump on vaginal area, urinary urgency and frequency. Hx of sebaceous cysts for which she has had to have surgery on. Urine dip shows: Glucose, Urine (mg/dL) Date Value 05/02/2018 neg Bilirubin, Urine (no units) Date Value 05/02/2018 neg Bilirubin, Urine (no units) Date Value 05/02/2018 neg Ketones, Urine (no units) Date Value 05/02/2018 neg Specific [place], Ur (no units) Date Value 05/02/2018 1.025 Hemoglobin/Blood,Ur (no units) Date Value 05/02/2018 neg No results found for: PH Protein, Urine (mg/dL) Date Value 05/02/2018 neg Urobilinogen, Urine (EU) Date Value 05/02/2018 normal No components found for: NITR Leukocytes (no units) Date Value 05/02/2018 neg Color/Appearance (comment:) Date Value 05/02/2018 dark jose enrique PAST MEDICAL HISTORY Diagnosis Date - Abnormal glandular Papanicolaou smear of cervix Abn. Pap smear (cervix) - Acute myopericarditis 2011 cardiomyopathy - Dysthymic disorder Depression (non-psychotic) - Hypertension - Incidental lung nodule, > 3mm and < 8mm 03/24/2017 03/17/17: 7.5 mm nodule RLL - Migraine with aura and without status migrainosus, not intractable 01/09/2016 - Morbid obesity due to excess calories (HCC) 03/24/2017 - Protein S deficiency (HCC) - Pulmonary embolus (HCC) 2007 left lung, after delivery with cardiomyopathy - RLL pneumonia ([facility]) 03/10/2017 - Unspecified asthma(493.90) - Urinary calculus, unspecified 2004 Renal stones ALLERGIES Penicillins; Tramadol MEDICATIONS Current Outpatient Prescriptions: venlafaxine ER (EFFEXOR XR) 37.5 mg 24 hr capsule Take 1 capsule by mouth once daily. topiramate (TOPAMAX) 25 mg tablet Take 2 tablets by mouth twice daily. rizatriptan (MAXALT PROPELLANT CHARGE ZONE ASSEMBLER) 10 mg disintegrating tablet Take 1 tablet by mouth as needed. May repeat in 2 hours if needed, Maximum dose=30 mg/24 hours omeprazole (PRILOSEC) 20 mg capsule Take 1 capsule by mouth daily before breakfast. 1/2 hr before meal. hydroCHLOROthiazide (HYDRODIURIL, ESIDRIX) 25 mg tablet Take 1 tablet by mouth once daily. fluticasone-salmeterol (ADVAIR DISKUS) 100-50 mcg/dose dsdv Inhale 1 Puff as instructed twice daily. Rinse mouth out after use with water. albuterol HFA (PROAIR HFA) 90 mcg/actuation inhaler Inhale 2 Puffs as instructed every 4 hours as needed. LORazepam (ATIVAN) 0.5 mg tab Take 1 tablet by mouth twice daily as needed (anxiety). citalopram (CELEXA) 20 mg tablet Take 1.5 tablets by mouth once daily. fluticasone (FLONASE) 50 mcg/actuation nasal spray Use 2 Sprays in each nostril once daily. ketorolac (TORADOL) 10 mg tablet Take 1 tablet by mouth every 6 hours as needed. Has tolerated Toradol injection in office. promethazine (PHENERGAN) 12.5 mg tablet Take 1 tablet by mouth every 6 hours as needed. NIFEdipine ER (PROCARDIA XL) 30 mg 24 hr tablet Take 1 tablet by mouth once daily. metroNIDAZOLE (METROGEL VAGINAL) 0.75 % Vaginal Gel Twice weekly vaginally x 6 months after initial course of flagyl No current facility-administered medications for this visit. Medications and allergies reviewed by this provider. 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 OBJECTIVE: BP 110/60 (BP Site: Left Arm, BP Position: Sitting, BP Cuff Size: Large Adult) Pulse 72 Temp 36.7 ?C (98 ?F) Resp 16 Wt 114.3 kg (252 lb) LMP 10/13/2011 BMI 43.26 kg/m? . Vital signs reviewed by this provider. APPEARANCE Well appearing, alert, in no acute distress, well-hydrated, well nourished., Obese HEART RRR with normal S1 and S2, no murmurs, no gallops, no JVD appreciated LUNG clear to auscultation ABDOMEN bowel sounds normoactive, no bruits, soft, non-tender, non-distended, no tenderness to palpation FEMALE: right labia minora with cystic area approximately dime-sized. Surrounding erythema without drainage. TTP. ASSESSMENT/PLAN: 1. Labial cyst - ICD9: 624.8, ICD10: N90.7 (primary diagnosis) - called over to [facility] and was able to facilitate appointment when leaves for evaluation and possibly IANDD - follow-up as needed 2. Dysuria - ICD9: 788.1, ICD10: R30.0 Acute- possibly related to labial cyst - Patient education for prevention given - complete course of bactrim - UA DIP B/O - follow-up if persisting or worseing Judith Podlogar, PICKER FEEDER.LEAD OPERATOR Prescription instructions reviewed with patient as applicable. Patient advised if symptoms do not improve or if symptoms worsen sooner, to contact their primary care physician. Potential red flag symptoms discussed with the patient. Reviewed appropriate action plan to take if red flag symptoms occur. Patient agreeable to treatment plan. EMILIANAOV Observed: 05/02/2018 Status: COMPLETED Source: [place] 2:20 PM [facility] REPOSITORY [facility] SARTHAKLESLIE ([id number]) 1975 F Date Time Provider Department 05/02/18 2:20 PM PODLOGJUDITH TOTH (LEAD OPERATOR) [facility] During your visit today, we recorded the following information about you: Temperature Pulse Respiration Blood pressure 98 degrees 72/minute 16/minute 110/60 Weight 114.3 kg Judith Centeno, DAVID.LEONIE 05/03/2018 7:27 AM Signed 05/02/2018 Patient presents with: Blister: vaginsal cyst or blister , cramping ,keeping her up at night. SUBJECTIVE: This is a 42 year old that is here today for Above Complaints. Seen in [facility] on April 27 for UTI, Given prescription for bactrim for 10 days. About 5 days ago developed painful bump to right vaginal area. Pain is described as burning and constant- keeping her awake at night. Has tried soaking in warm epsom salt bath with little relief. Describes area as red and inflamed. Denies drainage from area. Denies hx of STD's, change in sexual partners, vaginal discharge, other cystic/open lesions Positive for low grade fever, hot/cold flashes, abdominal cramping, dysuria- believes related to bump on vaginal area, urinary urgency and frequency. Hx of sebaceous cysts for which she has had to have surgery on. Urine dip shows: Glucose, Urine (mg/dL) Date Value 05/02/2018 neg Bilirubin, Urine (no units) Date Value 05/02/2018 neg Bilirubin, Urine (no units) Date Value 05/02/2018 neg Ketones, Urine (no units) Date Value 05/02/2018 neg Specific [place], Ur (no units) Date Value 05/02/2018 1.025 Hemoglobin/Blood,Ur (no units) Date Value 05/02/2018 neg No results found for: PH Protein, Urine (mg/dL) Date Value 05/02/2018 neg Urobilinogen, Urine (EU) Date Value 05/02/2018 normal No components found for: NITR Leukocytes (no units) Date Value 05/02/2018 neg Color/Appearance (comment:) Date Value 05/02/2018 dark jose enrique PAST MEDICAL HISTORY Diagnosis Date - Abnormal glandular Papanicolaou smear of cervix Abn. Pap smear (cervix) - Acute myopericarditis 2011 cardiomyopathy - Dysthymic disorder Depression (non-psychotic) - Hypertension - Incidental lung nodule, > 3mm and < 8mm 03/24/2017 03/17/17: 7.5 mm nodule RLL - Migraine with aura and without status migrainosus, not intractable 01/09/2016 - Morbid obesity due to excess calories (HCC) 03/24/2017 - Protein S deficiency (HCC) - Pulmonary embolus (HCC) 2007 left lung, after delivery with cardiomyopathy - RLL pneumonia (HCC) 03/10/2017 - Unspecified asthma(493.90) - Urinary calculus, unspecified 2004 Renal stones ALLERGIES Penicillins; Tramadol MEDICATIONS Current Outpatient Prescriptions: venlafaxine ER (EFFEXOR XR) 37.5 mg 24 hr capsule Take 1 capsule by mouth once daily. topiramate (TOPAMAX) 25 mg tablet Take 2 tablets by mouth twice daily. rizatriptan (MAXALT PROPELLANT CHARGE ZONE ASSEMBLER) 10 mg disintegrating tablet Take 1 tablet by mouth as needed. May repeat in 2 hours if needed, Maximum dose=30 mg/24 hours omeprazole (PRILOSEC) 20 mg capsule Take 1 capsule by mouth daily before breakfast. 1/2 hr before meal. hydroCHLOROthiazide (HYDRODIURIL, ESIDRIX) 25 mg tablet Take 1 tablet by mouth once daily. fluticasone-salmeterol (ADVAIR DISKUS) 100-50 mcg/dose dsdv Inhale 1 Puff as instructed twice daily. Rinse mouth out after use with water. albuterol HFA (PROAIR HFA) 90 mcg/actuation inhaler Inhale 2 Puffs as instructed every 4 hours as needed. LORazepam (ATIVAN) 0.5 mg tab Take 1 tablet by mouth twice daily as needed (anxiety). citalopram (CELEXA) 20 mg tablet Take 1.5 tablets by mouth once daily. fluticasone (FLONASE) 50 mcg/actuation nasal spray Use 2 Sprays in each nostril once daily. ketorolac (TORADOL) 10 mg tablet Take 1 tablet by mouth every 6 hours as needed. Has tolerated Toradol injection in office. promethazine (PHENERGAN) 12.5 mg tablet Take 1 tablet by mouth every 6 hours as needed. NIFEdipine ER (PROCARDIA XL) 30 mg 24 hr tablet Take 1 tablet by mouth once daily. metroNIDAZOLE (METROGEL VAGINAL) 0.75 % Vaginal Gel Twice weekly vaginally x 6 months after initial course of flagyl No current facility-administered medications for this visit. Medications and allergies reviewed by this provider. 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 OBJECTIVE: BP 110/60 (BP Site: Left Arm, BP Position: Sitting, BP Cuff Size: Large Adult) Pulse 72 Temp 36.7 ?C (98 ?F) Resp 16 Wt 114.3 kg (252 lb) LMP 10/13/2011 BMI 43.26 kg/m? . Vital signs reviewed by this provider. APPEARANCE Well appearing, alert, in no acute distress, well- hydrated, well nourished., Obese HEART RRR with normal S1 and S2, no murmurs, no gallops, no JVD appreciated LUNG clear to auscultation ABDOMEN bowel sounds normoactive, no bruits, soft, non-tender, non-distended, no tenderness to palpation FEMALE: right labia minora with cystic area approximately dime-sized. Surrounding erythema without drainage. TTP. ASSESSMENT/PLAN: 1. Labial cyst - ICD9: 624.8, ICD10: N90.7 (primary diagnosis) - called over to [facility] and was able to facilitate appointment when leaves for evaluation and possibly IANDD - follow-up as needed 2. Dysuria - ICD9: 788.1, ICD10: R30.0 Acute- possibly related to labial cyst - Patient education for prevention given - complete course of bactrim - UA DIP B/O - follow-up if persisting or worseing Judith Podlogar, [facility] Prescription instructions reviewed with patient as applicable. Patient advised if symptoms do not improve or if symptoms worsen sooner, to contact their primary care physician. Potential red flag symptoms discussed with the patient. Reviewed appropriate action plan to take if red flag symptoms occur. Patient agreeable to treatment plan. Referring Provider: SELF [[id number]] Allergies As of Date: 05/02/2018 Noted Allergy Reaction PENICILLINS 07/02/2005 4 - Hives TRAMADOL 01/30/2008 11 - Vomiting Date Reviewed: 05/02/2018 Reviewed by: Alana ([facility]) Cecelia - Fully Assessed Reason for Visit: Blister [1962] Cmt: vaginsal cyst or blister , cramping ,keeping her up at night. Primary Visit Diagnosis:Labial cyst [N90.7] Other Visit Diagnosis:Dysuria [R30.0] Order(s):UA DIP B/O [[id number]] Order #: [id number] Prescriptions as of 05/02/2018 Sig: VENLAFAXINE ER 37.5 MG CAPSUL* Take 1 capsule by mouth once * TOPIRAMATE 25 MG TABLET Take 2 tablets by mouth twice* RIZATRIPTAN 10 MG DISINTEGRAT* Take 1 tablet by mouth as nee* OMEPRAZOLE 20 MG CAPSULE,MIGUEL ANGEL* Take 1 capsule by mouth daily* HYDROCHLOROTHIAZIDE 25 MG TAB* Take 1 tablet by mouth once d* FLUTICASONE 100 MCG-SALMETERO* Inhale 1 Puff as instructed t* ALBUTEROL SULFATE HFA 90 MCG/* Inhale 2 Puffs as instructed * LORAZEPAM 0.5 MG TABLET Take 1 tablet by mouth twice * CITALOPRAM 20 MG TABLET Take 1.5 tablets by mouth onc* FLUTICASONE 50 MCG/ACTUATION * Use 2 Sprays in each nostril * KETOROLAC 10 MG TABLET Take 1 tablet by mouth every * PROMETHAZINE 12.5 MG TABLET Take 1 tablet by mouth every * NIFEDIPINE ER 30 MG TABLET,EX* Take 1 tablet by mouth once d* METRONIDAZOLE 0.75 % VAGINAL * Twice weekly vaginally x 6 mo* Problem List As Of Date 05/02/2018 Noted Resolved Calculus of kidney [N20.0] INVALID FOR*03/28/2014 HIDRADENITIS [L73.2] INVALID FOR* Unspecified asthma(493.90) [J45.909] 03/28/2014 More... Hypopotassemia [E87.6] INVALID FOR*03/28/2014 Biliary dyskinesia [K82.8] INVALID FOR*03/28/2014 Acute myopericarditis [I30.9] INVALID FOR*03/28/2014 Migraine with aura and without status migrainos*INVALID FOR* Chronic pelvic pain in female [R10.2, G89.29] INVALID FOR* Acute myopericarditis [I30.9] INVALID FOR* Incidental lung nodule, > 3mm and < 8mm [R91.1] INVALID FOR* More... Hot flashes [R23.2] INVALID FOR* Morbid obesity due to excess calories (HCC) [E6*INVALID FOR* Encounter Status:Closed by JUDITH CENTENO CNP on 05/03/18 Observed: 04/27/2018 Status: F Source: [facility] CULTURE URINE 7:51 PM [facility] REPOSITORY CULTURE URINE _URINE CULTURE_ M I C R O B I O L O G Y R E P O R T FINAL Antimicrobial Susceptibility and Organism Identification Report Specimen Number : [id number] Requested : 04/27/18 Specimen Source : URINE Collected : 04/27/18 19:51 [facility] : OUTPATIENT Received : 04/27/18 19:51 Requesting Physician : PAPI Patient/Specimen Tests and Comments Specimen Comments FINAL REPORT: NO GROWTH AT 48 HOURS Tech : Source : URINE ID # : [id number] FINAL Report Date : / / : Collected : 04/27/18 19:51 04/29/18.1553.URIAH. 04/28/18.1349.WKK. 04/29/18.1553.KLS.COMPLETE Performed By: #### [id number] #### [facility],[address] [place] [address] EMERGENCY REPORT Observed: 03/23/2018 Status: F Source: [facility] 7:35 PM [facility] EMERGENCY ROOM REPORT NAME ACCOUNT SEX AGE ADMIT DISCHARGE PT MED. RECORD# NUMBER DATE DATE TYPE LESLIE DE LEÓN [id number] F 42 03/22/18 03/22/18 3 [id number] ROOM: ER DATE OF : 1975 DICTATING PHYSICIAN: aSnjiv Raymond CHIEF COMPLAINT/HISTORY OF PRESENT ILLNESS: Patient came in. Patient came in complaining of a migraine since Wednesday. States she has a bitemporal headache, which she has had since Wednesday, but she has been having headaches on and off for about 30 days. She went to her physician. They put her on Topamax. She was also given Toradol. Toradol gave her nausea. She was also put on Imitrex in the past. She has had migraines when she was . She said light and noise makes it worse. It is a constant stabbing pain, is a 9/10. It is behind her eyes. PAST MEDICAL HISTORY: She has had a history of a myocardial infarction, pulmonary embolism when she was , hypertension, COPD, asthma. She has a history of a partial hysterectomy, cholecystectomy. SOCIAL HISTORY: She does not smoke. She drinks alcohol. REVIEW OF SYSTEMS: Ten systems reviewed and negative except as mentioned above. PHYSICAL EXAMINATION: She is an awake, alert, oriented female in no acute distress. She is afebrile. Pulse 83, respirations 18, blood pressure 118/77, pulse oximetry 93% on room air. Head is normocephalic, atraumatic. Eyes: Pupils equal, round, reactive to light. Extraocular muscles intact. Nares are patent. Throat has adequate moisture. Uvula is midline. Neck is supple. No petechiae or rash. Heart without murmur. S1 equals S2. No S3 or S4 appreciated. Lungs clear to auscultation bilaterally. No rales, rhonchi, retractions. Abdomen soft, nontender, nondistended. Skin is warm and dry. Cranial nerves 2 through 12 are intact. Speech is slow and gait and station intact. Suomnf-ly-gzix intact. Reflexes intact to the lower extremities. No focal deficits. DIAGNOSTIC DATA: Her CT was negative. Her CT of her sinuses were unremarkable. EMERGENCY DEPARTMENT COURSE AND TREATMENT: Patient was given Benadryl and fluids. She is given Toradol and Reglan. I did offer her an LP since this is an atypical headache. She declined this. Risks and benefits were explained. PLAN/DISPOSITION: I will refer her to Dr. Morris the neurologist. She has an appointment with Dr. Longoria in July and she is told to return if any persistent pain, problems or concerns. She feels better at this time. Page 1 of 2 [facility] Emergency Room Report Dictated By: Sanjiv Raymond DO 03/22/18 22:07 JOB #: [id number] Transcribed By: carson 03/23/18 06:32 Electronically signed by: GAGANDEEP Raymond D.O. 03/23/18 19:33 Page 2 of 2 SARTHAK LESLIE Emergency Room Report CT SINUSES W/O Observed: 03/22/2018 Status: F [facility] 7:28 PM [place] [address] Patient: LESLIE DE LEÓN Phone#: : 1975 Age: 42 Gender: F Pt. Type: ER Account: [id number] Location: [facility] Ordering: VIOLETA PHILLIPS Exam Date: 03/22/2018/19:22 Family Phys: SABRINA PENA Charge Code: [id number] Physician: Sharp Order #: [id number] DLP Dose#: PROCEDURE: CT SINUSES WITHOUT CONTRAST COMPARISON: None. INDICATIONS: Headache TECHNIQUE: CT images were created without intravenous contrast. All CT scans at this facility use dose modulation, iterative reconstruction, and/or weight based dosing when appropriate to reduce radiation dose to as low as reasonably achievable. IV CONTRAST: No IV contrast used,0ml TOTAL DOSE: 20.8 CTDIvol(mGy) FINDINGS: MAXILLARY SINUSES: Normal. No significant mucosal thickening or fluid. Infundibula are patent. No anomalous inferior orbital ethmoid (Eulogio) air cells. ETHMOID SINUSES: Normal. No significant mucosal thickening or fluid. Fovea ethmoidali and lamina papyracea are symmetric and intact. SPHENOID SINUSES: Normal. No significant mucosal thickening or fluid. Sphenoethmoidal recesses are patent. No bony dehiscence. FRONTAL SINUSES: Normal. No significant mucosal thickening or fluid. Frontal recesses are patent. No anomalous frontal air cells. NASAL FOSSA: Normal. No septal perforation or deviation. No kiarra bullosa or paradoxical turbinates are identified. OTHER: Normal. Limited views of the skull base and orbits are unremarkable. CONCLUSION: 1. Unremarkable CT sinus. Dictated by: Dee Delaney MD on 03/23/2018 at 9:42 Continued Report - Page 2 of 2 Patient: LESLIE DE LEÓN Phone#: : 1975 Age: 42 Gender: F Pt. Type: ER Account: [id number] Location: 052 Ordering: VIOLETA PHILLIPS Exam Date: 03/22/2018/19:22 Family Phys: SABRINA PENA Charge Code: [id number] Physician: Sharp Order #: [id number] DLP Dose#: Approved by: Dee Delaney MD on 03/23/2018 at 9:42 CT BRAIN W/O CONTRAST Observed: 03/22/2018 Status: F Source: [facility] 7:27 PM [place] [address] Patient: LESLIE DE LEÓN Phone#: : 1975 Age: 42 Gender: F Pt. Type: ER Account: [id number] Location: 052 Ordering: VIOLETA PHILLIPS Exam Date: 03/22/2018/19:22 Family Phys: SABRINA PENA Charge Code: [id number] Physician: Sharp Order #: [id number] DLP Dose#: PROCEDURE: CT BRAIN WITHOUT CONTRAST COMPARISON: None. INDICATIONS: Headache TECHNIQUE: CT images were obtained without contrast material. All CT scans at this facility use dose modulation, iterative reconstruction, and/or weight based dosing when appropriate to reduce radiation dose to as low as reasonably achievable. IV CONTRAST: No IV contrast used,0ml TOTAL DOSE: 52.3 CTDIvol(mGy) FINDINGS: CEREBRUM: No edema, hemorrhage, mass, or inappropriate atrophy. CEREBELLUM: No edema, hemorrhage, mass, or inappropriate atrophy. BRAINSTEM: No edema, hemorrhage, mass, or inappropriate atrophy. CSF SPACES: Ventricles, cisterns, and sulci are appropriate for age. No hydrocephalus, subarachnoid hemorrhage, or mass. SKULL: No mass or other significant visible lesion. SINUSES: Limited views demonstrate no significant mucosal thickening or fluid. ORBITS: Limited views are unremarkable. OTHER: Negative. CONCLUSION: 1. No appreciable acute intracranial abnormality. Dictated by: Dee Delaney MD on 03/23/2018 at 9:37 Continued Report - Page 2 of 2 Patient: LESLIE DE LEÓN Phone#: : 1975 Age: 42 Gender: F Pt. Type: ER Account: [id number] Location: [facility] Ordering: VIOLETA PHILLIPS Exam Date: 03/22/2018/19:22 Family Phys: SABRINA PENA Charge Code: [id number] Physician: Sharp Order #: [id number] DLP Dose#: Approved by: Dee Delaney MD on 03/23/2018 at 9:37 PROGRESS Observed: 03/18/2018 Status: COMPLETED Source: [place] 8:14 AM [facility] REPOSITORY HNO ID: [id number] Author: Yosef Red (Katie) Dusty Service: (none) Author Type: Nurse Practitioner Type: Progress Notes Filed: 03/18/2018 8:43 AM Note Text: Chief Complaint Patient presents with: Headache: x 4 days HPI Leslie De León is a 42 year old female who presents here today for Above Complaints. Migraine BORDEN x 3 days. Has used Imitrex, ice, Ibuprofen, Aleve without benefit. Reports has been having more frequent Migraine BORDEN, missing work. Current BORDEN, bilateral frontal BORDEN, + nausea, no vomiting, + diarrhea. + photo/phonosensivity. Denies any double or blurry vision, denies numbness or tingling or limb weakness. Previous prophylaxis with Inderal, made me sick, has also been on topamax-tolerated well, not on any preventative treatment at this time. Reports BORDEN are more frequent, approximately 4 per month. Thought maybe associated with menstrual cycle but now doesn't appear to be associated. Has had Toradol in the past with benefit. The ROS is otherwise negative. Past medical history, appointments, medications, allergies reviewed. Patient Allergies ALLERGIES Allergen Reactions - Penicillins Hives - Tramadol Vomiting Current Medications Current Outpatient Prescriptions on File Prior to Visit: SUMAtriptan (IMITREX) 50 mg tablet 50mg every 2 hrs as needed for migraine; max 4/day, 9/mo. omeprazole (PRILOSEC) 20 mg capsule Take 1 capsule by mouth daily before breakfast. 1/2 hr before meal. hydroCHLOROthiazide (HYDRODIURIL, ESIDRIX) 25 mg tablet Take 1 tablet by mouth once daily. fluticasone-salmeterol (ADVAIR DISKUS) 100-50 mcg/dose dsdv Inhale 1 Puff as instructed twice daily. Rinse mouth out after use with water. albuterol HFA (PROAIR HFA) 90 mcg/actuation inhaler Inhale 2 Puffs as instructed every 4 hours as needed. LORazepam (ATIVAN) 0.5 mg tab Take 1 tablet by mouth twice daily as needed (anxiety). citalopram (CELEXA) 20 mg tablet Take 1.5 tablets by mouth once daily. venlafaxine ER (EFFEXOR XR) 37.5 mg 24 hr capsule Take 1 capsule by mouth once daily. metroNIDAZOLE (METROGEL VAGINAL) 0.75 % Vaginal Gel Twice weekly vaginally x 6 months after initial course of flagyl fluticasone (FLONASE) 50 mcg/actuation nasal spray Use 2 Sprays in each nostril once daily. promethazine (PHENERGAN) 12.5 mg tablet Take 1 tablet by mouth every 6 hours as needed. NIFEdipine ER (PROCARDIA XL) 30 mg 24 hr tablet Take 1 tablet by mouth once daily. No current facility-administered medications on file prior to visit. Previous Medical History PAST MEDICAL HISTORY Diagnosis Date - Abnormal glandular Papanicolaou smear of cervix Abn. Pap smear (cervix) - Acute myopericarditis 2011 cardiomyopathy - Dysthymic disorder Depression (non-psychotic) - Hypertension - Incidental lung nodule, > 3mm and < 8mm 03/24/2017 03/17/17: 7.5 mm nodule RLL - Migraine with aura and without status migrainosus, not intractable 01/09/2016 - Morbid obesity due to excess calories (HCC) 03/24/2017 - Protein S deficiency (HCC) - Pulmonary embolus (HCC) 2007 left lung, after delivery with cardiomyopathy - RLL pneumonia (HCC) 03/10/2017 - Unspecified asthma(493.90) - Urinary calculus, unspecified 2004 Renal stones Previous Surgical History PAST SURGICAL HISTORY Procedure Laterality Date - HYSTEROSCOPY WBX WWO D AND C ANDOR POLYPECTOMY 2013 - INT REPAIR SCALP,WILLARD,TRUNK 7.6-12.5CM 02/21/07 RIGHT - INT REPAIR SCALP,WILLARD,TRUNK 7.6-12.5CM 02/21/07 LEFT - LAP CHOLECYSTECT/CHOLANGIOGRAPHY 10-27-11 - LAPAROSCOPIC TUBAL LIGATION/RING/CLIP 04/03/2014 filshie clips - LAPAROSCOPY, SURGICAL, URETEROLITHO - PAST SURGICAL HISTORY OF 2007 heart cath at [facility] by Dr. Aburto - REM LESION TRUNK,ARM,LEG 0.6 -1.0CM 01/26/07 Exc. right axillary and right ant. thigh lesions - REM LESION TRUNK,ARM,LEG > 4.0CM 02/21/07 RIGHT - REM LESION TRUNK,ARM,LEG > 4.0CM 02/21/07 LEFT - THERMAL ENDOMETRIAL ABLATION 04/03/2014 thermachoice ablation Family History FAMILY HISTORY Problem Relation Age of Onset - Cancer Mother UTERUS - Diabetes Mother - Hypertension Mother - Diabetes Father - Heart Father - Hypertension Father - Developmental problem Maternal Aunt - Hypertension Maternal Grandmother - Colon Cancer Maternal Grandfather - Hypertension Maternal Grandfather - Diabetes Maternal Grandfather - Heart Maternal Grandfather - Diabetes Maternal Grandmother - Diabetes Paternal Grandmother - Diabetes Paternal Grandfather - Hearing Loss Paternal Grandfather - Hearing Loss Daughter - COPD Maternal Grandfather - Thyroid Mother - Heart Paternal Grandmother GA - Pancreatitis [Other] [OTHER] Mother 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 [employer] Social History Main Topics Smoking status: Former Smoker Packs/day: 0.50 Years: 16.00 Types: Cigarettes Quit date: 07/19/2013 Smokeless tobacco: Never Used Alcohol use: Yes 1.5 oz/week Glasses of Wine (5oz): 1 per week Comment: Rarely Drug use: No Sexual activity: Yes Partners with: Male control/protection: Tubal Ligation Comment: Theremachoice Ablation Social History Narrative Blood type: A neg Ab screen gel: neg EXAM: BP 120/80 (BP Site: Right Arm, BP Position: Sitting, BP Cuff Size: Large Adult) Pulse 80 Temp 36.6 ?C (97.8 ?F) (Tympanic) Resp 18 Wt 113.9 kg (251 lb) LMP 10/13/2011 BMI 43.08 kg/m? General Appearance: Well appearing, alert, in no acute distress, well-hydrated, well nourished.. Ears: External ears normal, canals clear. Oropharynx: Lips, mucosa, and tongue normal, teeth and gums normal, oropharynx normal. Neck: Supple, no adenopathy; thyroid symmetric, normal size, no bruits. Lungs: Lungs clear to auscultation. No wheezing, rhonchi, rales. Heart: RRR without murmur, gallop, or rubs. No ectopy. Neurologic: Gait normal. Sensation grossly intact., Negative findings: speech normal, mental status intact, cranial nerves 2-12 intact. ASSESSMENT/PLAN: 1. Migraine with aura and without status migrainosus, not intractable - ICD9: 346.00, ICD10: G43.109 - Will start back with preventative therapy with Topamax, 25 mg qhs x one week then bid thereafter. She will call report in one month. May need to increase dose to 50 mg. - Given Toradol injection today, tolerated well. - FMLA papers completed. - KETOROLAC 60 MG/2 ML INTRAMUSCULAR SOLUTION - TOPIRAMATE 25 MG TABLET Yosef Montano, MSN PICKER FEEDER.LEAD OPERATOR CNOV Observed: 03/18/2018 Status: COMPLETED Source: [place] 8:00 AM [facility] REPOSITORY [facility] LESLIE DE LEÓN ([id number]) 1975 F Date Time Provider Department 03/18/18 8:00 AM YOSEF MONTANO (HOLD WORKER) MAHAMED During your visit today, we recorded the following information about you: Temperature Pulse Respiration Blood pressure 97.8 degrees 80/minute 18/minute 120/80 Weight 113.9 kg Yosef Montano, MSN [employer]ICKER FEEDER.LEAD OPERATOR 03/18/2018 8:43 AM Signed Chief Complaint Patient presents with: Headache: x 4 days HPI Leslie De León is a 42 year old female who presents here today for Above Complaints. Migraine BORDEN x 3 days. Has used Imitrex, ice, Ibuprofen, Aleve without benefit. Reports has been having more frequent Migraine BORDEN, missing work. Current BORDEN, bilateral frontal BORDEN, + nausea, no vomiting, + diarrhea. + photo/phonosensivity. Denies any double or blurry vision, denies numbness or tingling or limb weakness. Previous prophylaxis with Inderal, made me sick, has also been on topamax-tolerated well, not on any preventative treatment at this time. Reports BORDEN are more frequent, approximately 4 per month. Thought maybe associated with menstrual cycle but now doesn't appear to be associated. Has had Toradol in the past with benefit. The ROS is otherwise negative. Past medical history, appointments, medications, allergies reviewed. Patient Allergies ALLERGIES Allergen Reactions - Penicillins Hives - Tramadol Vomiting Current Medications Current Outpatient Prescriptions on File Prior to Visit: SUMAtriptan (IMITREX) 50 mg tablet 50mg every 2 hrs as needed for migraine; max 4/day, 9/mo. omeprazole (PRILOSEC) 20 mg capsule Take 1 capsule by mouth daily before breakfast. 1/2 hr before meal. hydroCHLOROthiazide (HYDRODIURIL, ESIDRIX) 25 mg tablet Take 1 tablet by mouth once daily. fluticasone-salmeterol (ADVAIR DISKUS) 100-50 mcg/dose dsdv Inhale 1 Puff as instructed twice daily. Rinse mouth out after use with water. albuterol HFA (PROAIR HFA) 90 mcg/actuation inhaler Inhale 2 Puffs as instructed every 4 hours as needed. LORazepam (ATIVAN) 0.5 mg tab Take 1 tablet by mouth twice daily as needed (anxiety). citalopram (CELEXA) 20 mg tablet Take 1.5 tablets by mouth once daily. venlafaxine ER (EFFEXOR XR) 37.5 mg 24 hr capsule Take 1 capsule by mouth once daily. metroNIDAZOLE (METROGEL VAGINAL) 0.75 % Vaginal Gel Twice weekly vaginally x 6 months after initial course of flagyl fluticasone (FLONASE) 50 mcg/actuation nasal spray Use 2 Sprays in each nostril once daily. promethazine (PHENERGAN) 12.5 mg tablet Take 1 tablet by mouth every 6 hours as needed. NIFEdipine ER (PROCARDIA XL) 30 mg 24 hr tablet Take 1 tablet by mouth once daily. No current facility-administered medications on file prior to visit. Previous Medical History PAST MEDICAL HISTORY Diagnosis Date - Abnormal glandular Papanicolaou smear of cervix Abn. Pap smear (cervix) - Acute myopericarditis 2011 cardiomyopathy - Dysthymic disorder Depression (non-psychotic) - Hypertension - Incidental lung nodule, > 3mm and < 8mm 03/24/2017 03/17/17: 7.5 mm nodule RLL - Migraine with aura and without status migrainosus, not intractable 01/09/2016 - Morbid obesity due to excess calories (HCC) 03/24/2017 - Protein S deficiency (HCC) - Pulmonary embolus (HCC) 2007 left lung, after delivery with cardiomyopathy - RLL pneumonia (HCC) 03/10/2017 - Unspecified asthma(493.90) - Urinary calculus, unspecified 2004 Renal stones Previous Surgical History PAST SURGICAL HISTORY Procedure Laterality Date - HYSTEROSCOPY WBX WWO D AND C ANDOR POLYPECTOMY 2013 - INT REPAIR SCALP,WILLARD,TRUNK 7.6-12.5CM 02/21/07 RIGHT - INT REPAIR SCALP,WILLARD,TRUNK 7.6-12.5CM 02/21/07 LEFT - LAP CHOLECYSTECT/CHOLANGIOGRAPHY 10-27-11 - LAPAROSCOPIC TUBAL LIGATION/RING/CLIP 04/03/2014 tona clips - LAPAROSCOPY, SURGICAL, URETEROLITHO - PAST SURGICAL HISTORY OF 2007 heart cath at [facility] by Dr. Aburto - REM LESION TRUNK,ARM,LEG 0.6 -1.0CM 01/26/07 Exc. right axillary and right ant. thigh lesions - REM LESION TRUNK,ARM,LEG > 4.0CM 02/21/07 RIGHT - REM LESION TRUNK,ARM,LEG > 4.0CM 02/21/07 LEFT - THERMAL ENDOMETRIAL ABLATION 04/03/2014 thermachoice ablation Family History FAMILY HISTORY Problem Relation Age of Onset - Cancer Mother UTERUS - Diabetes Mother - Hypertension Mother - Diabetes Father - Heart Father - Hypertension Father - Developmental problem Maternal Aunt - Hypertension Maternal Grandmother - Colon Cancer Maternal Grandfather - Hypertension Maternal Grandfather - Diabetes Maternal Grandfather - Heart Maternal Grandfather - Diabetes Maternal Grandmother - Diabetes Paternal Grandmother - Diabetes Paternal Grandfather - Hearing Loss Paternal Grandfather - Hearing Loss Daughter - COPD Maternal Grandfather - Thyroid Mother - Heart Paternal Grandmother GA - Pancreatitis [Other] [OTHER] Mother 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 [employer] Social History Main Topics Smoking status: Former Smoker Packs/day: 0.50 Years: 16.00 Types: Cigarettes Quit date: 07/19/2013 Smokeless tobacco: Never Used Alcohol use: Yes 1.5 oz/week Glasses of Wine (5oz): 1 per week Comment: Rarely Drug use: No Sexual activity: Yes Partners with: Male control/protection: Tubal Ligation Comment: Theremachoice Ablation Social History Narrative Blood type: A neg Ab screen gel: neg EXAM: BP 120/80 (BP Site: Right Arm, BP Position: Sitting, BP Cuff Size: Large Adult) Pulse 80 Temp 36.6 ?C (97.8 ?F) (Tympanic) Resp 18 Wt 113.9 kg (251 lb) LMP 10/13/2011 BMI 43.08 kg/m? General Appearance: Well appearing, alert, in no acute distress, well-hydrated, well nourished.. Ears: External ears normal, canals clear. Oropharynx: Lips, mucosa, and tongue normal, teeth and gums normal, oropharynx normal. Neck: Supple, no adenopathy; thyroid symmetric, normal size, no bruits. Lungs: Lungs clear to auscultation. No wheezing, rhonchi, rales. Heart: RRR without murmur, gallop, or rubs. No ectopy. Neurologic: Gait normal. Sensation grossly intact., Negative findings: speech normal, mental status intact, cranial nerves 2-12 intact. ASSESSMENT/PLAN: 1. Migraine with aura and without status migrainosus, not intractable - ICD9: 346.00, ICD10: G43.109 - Will start back with preventative therapy with Topamax, 25 mg qhs x one week then bid thereafter. She will call report in one month. May need to increase dose to 50 mg. - Given Toradol injection today, tolerated well. - FMLA papers completed. - KETOROLAC 60 MG/2 ML INTRAMUSCULAR SOLUTION - TOPIRAMATE 25 MG TABLET Yosef Montano, MSN PICKER FEEDER.LEAD OPERATOR Yosef Montano, MSN PICKER FEEDER.LEAD OPERATOR 03/18/2018 8:26 AM Signed 1. Topamax 25 mg start with once a day at bedtime for one week then increase to twice a day. Referring Provider: SELF [200] Allergies As of Date: 03/18/2018 Noted Allergy Reaction PENICILLINS 07/02/2005 4 - Hives TRAMADOL 01/30/2008 11 - Vomiting Date Reviewed: 03/18/2018 Reviewed by: Josue Kohler LPN - Fully Assessed Reason for Visit: Headache [52] Cmt: x 4 days Primary Visit Diagnosis:Migraine with aura and without status migrainosus, not intractable [G43.109] Order(s):[] ketorolac 60 mg injection (TORADOL)Disp: Rfl: topiramate (TOPAMAX) 25 mg tabletTake 1 tablet by mouth twice daily.Disp: 60 tabletRfl: 1 Prescriptions as of 03/18/2018 Sig: SUMATRIPTAN 50 MG TABLET 50mg every 2 hrs as needed fo* OMEPRAZOLE 20 MG CAPSULE,MIGUEL ANGEL* Take 1 capsule by mouth daily* HYDROCHLOROTHIAZIDE 25 MG TAB* Take 1 tablet by mouth once d* FLUTICASONE 100 MCG-SALMETERO* Inhale 1 Puff as instructed t* ALBUTEROL SULFATE HFA 90 MCG/* Inhale 2 Puffs as instructed * LORAZEPAM 0.5 MG TABLET Take 1 tablet by mouth twice * CITALOPRAM 20 MG TABLET Take 1.5 tablets by mouth onc* VENLAFAXINE ER 37.5 MG CAPSUL* Take 1 capsule by mouth once * METRONIDAZOLE 0.75 % VAGINAL * Twice weekly vaginally x 6 mo* FLUTICASONE 50 MCG/ACTUATION * Use 2 Sprays in each nostril * TOPIRAMATE 25 MG TABLET Take 1 tablet by mouth twice * PROMETHAZINE 12.5 MG TABLET Take 1 tablet by mouth every * NIFEDIPINE ER 30 MG TABLET,EX* Take 1 tablet by mouth once d* Problem List As Of Date 03/18/2018 Noted Resolved Calculus of kidney [N20.0] INVALID FOR*03/28/2014 HIDRADENITIS [L73.2] INVALID FOR* Unspecified asthma(493.90) [J45.909] 03/28/2014 More... Hypopotassemia [E87.6] INVALID FOR*03/28/2014 Biliary dyskinesia [K82.8] INVALID FOR*03/28/2014 Acute myopericarditis [I30.9] INVALID FOR*03/28/2014 Migraine with aura and without status migrainos*INVALID FOR* Chronic pelvic pain in female [R10.2, G89.29] INVALID FOR* Acute myopericarditis [I30.9] INVALID FOR* Incidental lung nodule, > 3mm and < 8mm [R91.1] INVALID FOR* More... Hot flashes [R23.2] INVALID FOR* Morbid obesity due to excess calories (HCC) [E6*INVALID FOR* Other instructions from your clinician: 1. Topamax 25 mg start with once a day at bedtime for one week then increase to twice a day. Prescriptions ordered this encounter Disp Refills Start End KETOROLAC 60 MG/2 ML INTRAMUSCULAR S* 03/18/2018 03/18/2018 Route: INTRAMUSCULA TOPIRAMATE 25 MG TABLET 60 t* 1 03/18/2018 Route: ORAL Sig: Take 1 tablet by mouth twice daily. Encounter Status:Closed by YOSEF MONTANO CNP on 03/18/18 THYROID STIM HORMONE Collected: 02/09/2018 Status: F Source: [place] (TSH) 2:43 PM [facility] REPOSITORY TYPE CODE TESTS RESULT OUT OF RANGE REFERENCE UNITS LAB L501.9520 0.358-3.74 uIU/mL Normal TSH 1.08 Performed By: #### L501.9520, L3100.5420 #### [facility] [address] [place], [address] PROLACTIN Collected: 02/09/2018 Status: F Source: [place] 2:43 PM [facility] REPOSITORY TYPE CODE TESTS RESULT OUT OF RANGE REFERENCE UNITS LAB L3100.5420 ng/mL Normal PROLACTIN 10.3 Result Comment: NORMAL REFERENCE RANGES FEMALE NON- 2.2 - 30.3 ng/mL 8.1 - 347.6 ng/mL POST-MENOPAUSAL 0.7 - 31.5 ng/mL MALE 2.5 - 17.4 ng/mL NEW TEST METHOD AND REFERENCE RANGES MARCH 07, 2012 Performed By: #### L501.9520, L3100.5420 #### [facility] [address] [place], [address] [employer]PA[employer]ER OFFICE VISIT Observed: 01/27/2018 Status: F Source: [place] REPORT 5:07 PM [facility] REPOSITORY [facility] [address] [place] [address] OFFICE VISIT Date of Service: 01/27/18 MR#: [id number] Acct: [id number] Name: LESLIE DE LEÓN Rep #: [id number] : 1975 Provider: KATIE Griffin Age/Sex: 42/F Location: [facility] Status: Signed Intake Vital Signs01/27/18 Height 5 ft 4 in 01/27/18 Weight: 255 lb 8 oz 01/27/18 Body Mass Index (BMI) 43.8 01/27/18 Blood Pressure 122/79 Intake Visit Reasons: ovary pain Chief Complaint: Pelvic Pain Brand Mgr Required: No Is patient in pain?: Yes Allergies Penicillins Allergy (Verified 01/27/18 10:05) Rash tramadol Allergy (Verified 01/27/18 10:05) Rash Medications Hydrochlorothiazide [Hctz] 25 mg PO DAILY 12/30/15 [History Confirmed 01/27/18] Citalopram Hydrobromide [Celexa] 20 mg PO DAILY 03/17/17 [History Confirmed 01/27/18] Venlafaxine HCl [Effexor] 37.5 mg PO DAILY 07/04/17 [History Confirmed 01/27/18] omeprazole magnesium 2.5 mg oral suspension,delayed release 10 mg PO QDAY 12/15/17 [History Confirmed 12/15/17] naproxen 500 mg tablet 500 mg PO Q12H #30 tab 01/20/18 [Rx] sumatriptan 25 mg tablet 25 mg PO ONCE 01/27/18 [History Confirmed 01/27/18] Is last menstrual period known: No Post menopausal: No Patient : No : No PFSH Medical History Myocardial infarction (Acute) Breathing-related sleep disorder (Chronic) Nicotine dependence in remission (Chronic) Obesity (Chronic) Pulmonary nodule (Chronic) Surgical History Hx of right heart catheterization (Acute) H/O: hysterectomy (Resolved) Hx of cholecystectomy (Resolved) Family History Mother Diabetes Hypertension Cancer Uterine cancer Pancreatitis Father Diabetes Heart disease Hypertension Daughter Hearing loss Social History Smoking Status: Former smoker second hand exposure: No alcohol intake: current alcohol intake frequency: 0-2 drinks per day details: social substance use type: does not use caffeine: Yes what type of physical activity do you participate in: none, walking seatbelt use: always do you feel safe at home: Yes additional social history: Rebecca Snow Patient works at [employer] ovary pain: Details: LESLIE DE LEÓN is a 42 year old who presents for persistant pelvic pain across lower abdomen. 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 Her ovaries remain. US was normal except 2.6cm simple cyst. She has also had green discharge, spontaneous from left nipple. Denies masses in breast. She has also had weight gain. Pregancy History 6 Elective abortions Hx Para 3 Spontaneous abortions Past Pregnancies Del. DateName GA/Weeks Outcome Route Bth WeighInfant GeLabor LgtAnesthesiDel LocatProvider FOB t n h a n Exam Chest Breast inspection: normal inspection of the breasts, normal inspection of the axillae Breast palpation: normal palpation of the breasts, normal palpation of the axillae, other (no discharge from either breast. ) External Female Exam: normal external appearance, normal appearance of the urethra Urethra: normal appearance of the urethra Speculum Exam - Vagina: normal appearance of the vagina Speculum Exam - Cervix: cervix absent Bimanual Exam- Vagina AND Uterus: uterus absent Bimanual Exam- Adnexa, other: normal adnexae, no adnexal masses, other (she is tender across lower pelvis), pelvic support normal Pelvic Support: normal Assessment AND Plan Problems 1. Pelvic pain in female R10.2 2. Galactorrhea O92.6 3. Weight gain R63.5 Plan Prolactin and TSH in 3 days without breast stimulation Will consult with Dr. Juan for further management of pelvic pain. Orders Orders: Coding Level of Care Code Off vis,est,level 3 Diagnoses Pelvic pain in female R10.2 Galactorrhea O92.6 Weight gain R63.5 01/27/18 1707 <Electronically signed by Gris EDWARDS> Date Gris BETANCOURTC Cosigner Signature: Date (if applicable) CC: PELVIC (NON ) Observed: 01/24/2018 Status: F Source: [place] 2:39 PM [facility] REPOSITORY [facility] Imaging Services [address] [place] [address] Pelvic (Non ) MR#: [id number] Acct: [id number] Name: LESLIE DE LEÓN Rep #: [id number] : 1975 F 42 From: Floyd Moncada MD PCP: Sabrina Pena III, MD Status: REG CLI Study: Pelvic (Non ) Date of Exam: 01/24/18 Exam# [id number] Ordering Dr: Gris Griffin STUDY: ULTRASOUND TRANSVAGINAL CLINICAL: Female, 42 years old. Pelvic pain. Previous hysterectomy. TECHNIQUE: Transabdominal and Transvaginal COMPARISON: None. FINDINGS: Uterus is surgically absent. Normal right ovary, measuring 4.2 x 3.1 x 2.8 cm. There is a 2.6 cm right ovarian cyst. Normal left ovary, measuring 3.6 x 1.5 x 2.6 cm. There are multiple follicles without a dominant cyst. There is no free fluid in the pelvis. Polycystic ovary disease: No. US/Pelvic (Non ) IMPRESSION: Status post hysterectomy. 2.6 cm right ovarian cyst. Otherwise negative exam. Electronically Signed: Floyd Moncada MD at 22:58 EDT , Service support , CC: KATIE Griffin; Sabrina Pena III, MD Row Boss Hoeing: Signed TRANSVAGINAL Observed: 01/24/2018 Status: F Source: [place] NON- 2:39 PM [facility] REPOSITORY [facility] Imaging Services [address] [place] [address] Transvaginal Non- MR#: [id number] Acct: [id number] Name: LESLIE DE LEÓN Rep #: [id number] : 1975 F 42 From: Floyd Moncada MD PCP: Sabrina Pena III, MD Status: REG CLI Study: Transvaginal Non- Date of Exam: 01/24/18 Exam# [id number] Ordering Dr: Gris Griffin HOLD WORKER-C STUDY: ULTRASOUND TRANSVAGINAL CLINICAL: Female, 42 years old. Pelvic pain. Previous hysterectomy. TECHNIQUE: Transabdominal and Transvaginal COMPARISON: None. FINDINGS: Uterus is surgically absent. Normal right ovary, measuring 4.2 x 3.1 x 2.8 cm. There is a 2.6 cm right ovarian cyst. Normal left ovary, measuring 3.6 x 1.5 x 2.6 cm. There are multiple follicles without a dominant cyst. There is no free fluid in the pelvis. Polycystic ovary disease: No. US/Transvaginal Non- IMPRESSION: Status post hysterectomy. 2.6 cm right ovarian cyst. Otherwise negative exam. Electronically Signed: Floyd Moncada MD at 22:58 EDT , Service support , CC: KATIE Griffin; Sabrina Pena III, MD Row Boss Hoeing: Signed PROGRESS Observed: 01/20/2018 Status: COMPLETED Source: [place] 2:34 PM [facility] REPOSITORY HNO ID: [id number] Author: Jody Red (Katie) Eugenio Service: (none) Author Type: Nurse Practitioner Type: Progress Notes Filed: 01/20/2018 4:18 PM Note Text: Subjective HPI Patient presents with: Lateral right foot pain: injured it 1 week ago hitting it into bed post and foot twisting inward. States still able to walk on foot but has remained bothersome after a week. Ice with minimal relief. ROS All other reviewed and negative other than HPI. PAST MEDICAL HISTORY Diagnosis Date - Abnormal glandular Papanicolaou smear of cervix Abn. Pap smear (cervix) - Acute myopericarditis 2011 cardiomyopathy - Dysthymic disorder Depression (non-psychotic) - Hypertension - Incidental lung nodule, > 3mm and < 8mm 03/24/2017 03/17/17: 7.5 mm nodule RLL - Migraine with aura and without status migrainosus, not intractable 01/09/2016 - Morbid obesity due to excess calories (HCC) 03/24/2017 - Protein S deficiency (HCC) - Pulmonary embolus (HCC) 2007 left lung, after delivery with cardiomyopathy - RLL pneumonia (HCC) 03/10/2017 - Unspecified asthma(493.90) - Urinary calculus, unspecified 2004 Renal stones PAST SURGICAL HISTORY Procedure Laterality Date - HYSTEROSCOPY WBX WWO D AND C ANDOR POLYPECTOMY 2013 - INT REPAIR SCALP,WILLARD,TRUNK 7.6-12.5CM 02/21/07 RIGHT - INT REPAIR SCALP,WILLARD,TRUNK 7.6-12.5CM 02/21/07 LEFT - LAP CHOLECYSTECT/CHOLANGIOGRAPHY 10-27-11 - LAPAROSCOPIC TUBAL LIGATION/RING/CLIP 04/03/2014 filshie clips - LAPAROSCOPY, SURGICAL, URETEROLITHO - PAST SURGICAL HISTORY OF 2007 heart cath at [facility] by Dr. Aburto - REM LESION TRUNK,ARM,LEG 0.6 -1.0CM 01/26/07 Exc. right axillary and right ant. thigh lesions - REM LESION TRUNK,ARM,LEG > 4.0CM 02/21/07 RIGHT - REM LESION TRUNK,ARM,LEG > 4.0CM 02/21/07 LEFT - THERMAL ENDOMETRIAL ABLATION 04/03/2014 thermachoice ablation ALLERGIES Penicillins; Tramadol MEDICATIONS SUMAtriptan (IMITREX) 50 mg tablet 50mg every 2 hrs as needed for migraine; max 4/day, 9/mo. omeprazole (PRILOSEC) 20 mg capsule Take 1 capsule by mouth daily before breakfast. 1/2 hr before meal. hydroCHLOROthiazide (HYDRODIURIL, ESIDRIX) 25 mg tablet Take 1 tablet by mouth once daily. fluticasone-salmeterol (ADVAIR DISKUS) 100-50 mcg/dose dsdv Inhale 1 Puff as instructed twice daily. Rinse mouth out after use with water. albuterol HFA (PROAIR HFA) 90 mcg/actuation inhaler Inhale 2 Puffs as instructed every 4 hours as needed. LORazepam (ATIVAN) 0.5 mg tab Take 1 tablet by mouth twice daily as needed (anxiety). citalopram (CELEXA) 20 mg tablet Take 1.5 tablets by mouth once daily. promethazine (PHENERGAN) 12.5 mg tablet Take 1 tablet by mouth every 6 hours as needed. venlafaxine ER (EFFEXOR XR) 37.5 mg 24 hr capsule Take 1 capsule by mouth once daily. NIFEdipine ER (PROCARDIA XL) 30 mg 24 hr tablet Take 1 tablet by mouth once daily. metroNIDAZOLE (METROGEL VAGINAL) 0.75 % Vaginal Gel Twice weekly vaginally x 6 months after initial course of flagyl fluticasone (FLONASE) 50 mcg/actuation nasal spray Use 2 Sprays in each nostril once daily. FAMILY HISTORY Problem Relation Age of Onset - Cancer Mother UTERUS - Diabetes Mother - Hypertension Mother - Diabetes Father - Heart Father - Hypertension Father - Developmental problem Maternal Aunt - Hypertension Maternal Grandmother - Colon Cancer Maternal Grandfather - Hypertension Maternal Grandfather - Diabetes Maternal Grandfather - Heart Maternal Grandfather - Diabetes Maternal Grandmother - Diabetes Paternal Grandmother - Diabetes Paternal Grandfather - Hearing Loss Paternal Grandfather - Hearing Loss Daughter - COPD Maternal Grandfather - Thyroid Mother - Heart Paternal Grandmother GA - Pancreatitis [Other] [OTHER] Mother Social History Substance Use Topics - Smoking status: Former Smoker Packs/day: 0.50 Years: 16.00 Types: Cigarettes Quit date: 07/19/2013 - Smokeless tobacco: Never Used - Alcohol use 1.5 oz/week 1 Glasses of Wine (5oz) per week Comment: Rarely Objective Physical Exam Musculoskeletal: Right ankle: Normal. Right foot: There is tenderness (lateral plantar aspect of mid to fore foot), bony tenderness (5th metatarsal) and swelling (mild). There is normal range of motion, normal capillary refill, no crepitus and no deformity. Nursing note and vitals reviewed. ASSESSMENT/PLAN: 1. Right foot injury, initial encounter - ICD9: 959.7, ICD10: S99.921A - Reviewed xray no acute fractures or dislocations. - Pt verbalized understanding. - Treat as sprain/contusion - Limited activity x 1 week, advance as tolerated - NSAIDs - RICE - F/u with pcp in 7-10 days or sooner if symptoms are not improving or worsening - XR FOOT GENERAL 3V AP/LAT/OBL RT Prescription instructions reviewed with patient as applicable. Patient advised if symptoms do not improve or if symptoms worsen sooner, to contact their primary care physician. Potential red flag symptoms discussed with the patient. Reviewed appropriate action plan to take if red flag symptoms occur. Patient agreeable to treatment plan. Jody Becker, PICKER FEEDER.LEAD OPERATOR XR FOOT 3V AP/LAT/OBL Observed: 01/20/2018 Status: F Source: [place] [facility] 1:26 PM [facility] REPOSITORY * * *Final Report* * * DATE OF EXAM: Jan 20 2018 1:26PM WOX [id number] - XR FOOT 3V AP/LAT/OBL RT / PROCEDURE REASON: Unspecified injury of right foot, initial encounter * * * * Physician Interpretation * * * * HISTORY: Trauma. Foot pain. COMPARISON: There are no prior studies for comparison. RESULT: 3 views of the right foot demonstrate mild forefoot dorsal soft tissue swelling. Underlying bony structures are intact. No acute fracture or dislocation. There are incidental tiny calcaneal spurs at the [place]'s tendon and plantar fascial insertions. IMPRESSION: Mild soft tissue swelling. No acute bony process. Row Boss Hoeing: PSCMorris Transcribe Date/Time: Jan 20 2018 1:32P Dictated by : KEENAN LAI MD This examination was interpreted and the report reviewed and electronically signed by: KEENAN LAI MD on Jan 20 2018 1:34PM EST [id number] PROGRESS Observed: 01/20/2018 Status: COMPLETED Source: [place] 1:18 PM [facility] REPOSITORY HNO ID: [id number] Author: Jesica Reyes (Rt) Alana Connors Service: (none) Author Type: Rn Unit Manager Type: Progress Notes Filed: 01/20/2018 1:25 PM Note Text: Radiology Service Progress Note PATIENT NAME: Leslie De León DATE OF SERVICE: January 20, 2018 TIME: 1:18 PM PATIENT IDENTITY VERIFICATION COMPLETED USING TWO (2) METHODS: Patient confirmed name verbally and Date of . PATIENT GENDER DATA: Female. status: : No status: NO. PATIENT RELEVANT IMPLANT DATA REVIEWED: Not Applicable RADIOLOGY DEPARTMENT: General X-ray: Exam(s) Completed: Lower Extremity X-Ray(s): Foot, Right and Wt. Bearing: PERIPHERAL IV DATA: Not applicable SIGNED BY: RT Rehan January 20, 2018 1:18 PM CNOV Observed: 01/20/2018 Status: COMPLETED Source: [place] 12:30 PM [facility] REPOSITORY Office Visit (WSTR) LESLIE DE LEÓN ([id number]) 1975 F Date Time Provider Department 01/20/18 12:30 PM JODY BECK[facility]HOLD WORKER[facility] During your visit today, we recorded the following information about you: Temperature Pulse Respiration Blood pressure 98.5 degrees 84/minute 18/minute 110/80 Weight 113.5 kg Jody Becker APRN.LEONIE 01/20/2018 1:41 PM Signed Foot Sprain You have been diagnosed with a sprain of your foot. ? A sprain of your foot is an injury to the ligaments in your foot. It IS NOT the same as a sprain of the ankle. A sprain is an injury to a ligament, usually a tear or partial tear. Sprains can often be as painful as a fracture. Sprains can be divided into 3 categories by the amount of injury to the ligaments. A first- degree sprain is considered a minor tear whereas a third degree sprain often involves a chip fracture of the bone that to which the ligament is attached. The general care of a sprain includes the use of a medication to reduce pain, the use of a splint to reduce movement and Resting, Icing, Compressing and Elevating the injured area. Remember this as ANDquot;RICE.ANDquot; ? REST: Limit the use of the injured body part. ? ICE: By applying ice to the affected area, swelling and pain can be reduced. Place some ice cubes in a re-sealable (Ziploc) bag and add some water. Put a thin washcloth between the bag and your skin. Apply the ice bag to the area for at least 20 minutes. Do this at least 4 times per day. Using the ice for longer times and more frequently is OK. NEVER APPLY ICE DIRECTLY TO THE SKIN. ? COMPRESS: Compression means to apply pressure around the injured area such as with a splint, cast or an kandace bandage. Compression decreases swelling and improves comfort. Compression should be tight enough to relieve swelling but not so tight as to decrease circulation. Increasing pain, numbness, tingling, or change in skin color, are all signs of decreased circulation. ? ELEVATE: Elevate the injured part. For example, a leg can be elevated by placing the leg on a chair while sitting and propped up on pillows while lying down. You have been given an orthopedic ANDquot;cast shoe,ANDquot; also called a ANDquot;hard shoe.ANDquot; This shoe is used to make walking more comfortable by not letting your foot bend too much while walking. You can use the shoe for comfort. YOU SHOULD SEEK MEDICAL ATTENTION IMMEDIATELY IF ANY OF THE FOLLOWING OCCURS: ? You experience a severe increase in pain in the affected area. ? You develop new numbness and tingling in or below the affected area. ? You develop a cold, pale foot that appears to have a problem with its blood supply. Jody Becker APRN.LEAD OPERATOR 01/20/2018 4:18 PM Signed Subjective HPI Patient presents with: Lateral right foot pain: injured it 1 week ago hitting it into bed post and foot twisting inward. States still able to walk on foot but has remained bothersome after a week. Ice with minimal relief. ROS All other reviewed and negative other than HPI. PAST MEDICAL HISTORY Diagnosis Date - Abnormal glandular Papanicolaou smear of cervix Abn. Pap smear (cervix) - Acute myopericarditis 2011 cardiomyopathy - Dysthymic disorder Depression (non-psychotic) - Hypertension - Incidental lung nodule, ANDgt; 3mm and ANDlt; 8mm 03/24/2017 03/17/17: 7.5 mm nodule RLL - Migraine with aura and without status migrainosus, not intractable 01/09/2016 - Morbid obesity due to excess calories (HCC) 03/24/2017 - Protein S deficiency (HCC) - Pulmonary embolus (HCC) 2007 left lung, after delivery with cardiomyopathy - RLL pneumonia (HCC) 03/10/2017 - Unspecified asthma(493.90) - Urinary calculus, unspecified 2004 Renal stones PAST SURGICAL HISTORY Procedure Laterality Date - HYSTEROSCOPY WBX WWO D AND C ANDOR POLYPECTOMY 2013 - INT REPAIR SCALP,WILLARD,TRUNK 7.6-12.5CM 02/21/07 RIGHT - INT REPAIR SCALP,WILLARD,TRUNK 7.6-12.5CM 02/21/07 LEFT - LAP CHOLECYSTECT/CHOLANGIOGRAPHY 10-27-11 - LAPAROSCOPIC TUBAL LIGATION/RING/CLIP 04/03/2014 filshie clips - LAPAROSCOPY, SURGICAL, URETEROLITHO - PAST SURGICAL HISTORY OF 2007 heart cath at [facility] by Dr. Aburto - REM LESION TRUNK,ARM,LEG 0.6 -1.0CM 01/26/07 Exc. right axillary and right ant. thigh lesions - REM LESION TRUNK,ARM,LEG ANDgt; 4.0CM 02/21/07 RIGHT - REM LESION TRUNK,ARM,LEG ANDgt; 4.0CM 02/21/07 LEFT - THERMAL ENDOMETRIAL ABLATION 04/03/2014 thermachoice ablation ALLERGIES Penicillins; Tramadol MEDICATIONS SUMAtriptan (IMITREX) 50 mg tablet 50mg every 2 hrs as needed for migraine; max 4/day, 9/mo. omeprazole (PRILOSEC) 20 mg capsule Take 1 capsule by mouth daily before breakfast. 1/2 hr before meal. hydroCHLOROthiazide (HYDRODIURIL, ESIDRIX) 25 mg tablet Take 1 tablet by mouth once daily. fluticasone-salmeterol (ADVAIR DISKUS) 100-50 mcg/dose dsdv Inhale 1 Puff as instructed twice daily. Rinse mouth out after use with water. albuterol HFA (PROAIR HFA) 90 mcg/actuation inhaler Inhale 2 Puffs as instructed every 4 hours as needed. LORazepam (ATIVAN) 0.5 mg tab Take 1 tablet by mouth twice daily as needed (anxiety). citalopram (CELEXA) 20 mg tablet Take 1.5 tablets by mouth once daily. promethazine (PHENERGAN) 12.5 mg tablet Take 1 tablet by mouth every 6 hours as needed. venlafaxine ER (EFFEXOR XR) 37.5 mg 24 hr capsule Take 1 capsule by mouth once daily. NIFEdipine ER (PROCARDIA XL) 30 mg 24 hr tablet Take 1 tablet by mouth once daily. metroNIDAZOLE (METROGEL VAGINAL) 0.75 % Vaginal Gel Twice weekly vaginally x 6 months after initial course of flagyl fluticasone (FLONASE) 50 mcg/actuation nasal spray Use 2 Sprays in each nostril once daily. FAMILY HISTORY Problem Relation Age of Onset - Cancer Mother UTERUS - Diabetes Mother - Hypertension Mother - Diabetes Father - Heart Father - Hypertension Father - Developmental problem Maternal Aunt - Hypertension Maternal Grandmother - Colon Cancer Maternal Grandfather - Hypertension Maternal Grandfather - Diabetes Maternal Grandfather - Heart Maternal Grandfather - Diabetes Maternal Grandmother - Diabetes Paternal Grandmother - Diabetes Paternal Grandfather - Hearing Loss Paternal Grandfather - Hearing Loss Daughter - COPD Maternal Grandfather - Thyroid Mother - Heart Paternal Grandmother GA - Pancreatitis [Other] [OTHER] Mother Social History Substance Use Topics - Smoking status: Former Smoker Packs/day: 0.50 Years: 16.00 Types: Cigarettes Quit date: 07/19/2013 - Smokeless tobacco: Never Used - Alcohol use 1.5 oz/week 1 Glasses of Wine (5oz) per week Comment: Rarely Objective Physical Exam Musculoskeletal: Right ankle: Normal. Right foot: There is tenderness (lateral plantar aspect of mid to fore foot), bony tenderness (5th metatarsal) and swelling (mild). There is normal range of motion, normal capillary refill, no crepitus and no deformity. Nursing note and vitals reviewed. ASSESSMENT/PLAN: 1. Right foot injury, initial encounter - ICD9: 959.7, ICD10: S99.921A - Reviewed xray no acute fractures or dislocations. - Pt verbalized understanding. - Treat as sprain/contusion - Limited activity x 1 week, advance as tolerated - NSAIDs - RICE - F/u with pcp in 7-10 days or sooner if symptoms are not improving or worsening - XR FOOT GENERAL 3V AP/LAT/OBL RT Prescription instructions reviewed with patient as applicable. Patient advised if symptoms do not improve or if symptoms worsen sooner, to contact their primary care physician. Potential red flag symptoms discussed with the patient. Reviewed appropriate action plan to take if red flag symptoms occur. Patient agreeable to treatment plan. Jody Becker APRN.LEAD OPERATOR Referring Provider: SELF [[id number]] Allergies As of Date: 01/20/2018 Noted Allergy Reaction PENICILLINS 07/02/2005 4 - Hives TRAMADOL 01/30/2008 11 - Vomiting Date Reviewed: 01/20/2018 Reviewed by: Dora Ochoa LPN - Fully Assessed Reason for Visit: right foot pain [Other] Cmt: injured it 1 week ago Primary Visit Diagnosis:Right foot injury, initial encounter [S99.921A] Order(s):XR FOOT GENERAL 3V AP/LAT/OBL RT [[id number]] Order #: [id number] FUTURE Prescriptions as of 01/20/2018 Sig: SUMATRIPTAN 50 MG TABLET 50mg every 2 hrs as needed fo* OMEPRAZOLE 20 MG CAPSULE,MIGUEL ANGEL* Take 1 capsule by mouth daily* HYDROCHLOROTHIAZIDE 25 MG TAB* Take 1 tablet by mouth once d* FLUTICASONE 100 MCG-SALMETERO* Inhale 1 Puff as instructed t* ALBUTEROL SULFATE HFA 90 MCG/* Inhale 2 Puffs as instructed * LORAZEPAM 0.5 MG TABLET Take 1 tablet by mouth twice * CITALOPRAM 20 MG TABLET Take 1.5 tablets by mouth onc* PROMETHAZINE 12.5 MG TABLET Take 1 tablet by mouth every * VENLAFAXINE ER 37.5 MG CAPSUL* Take 1 capsule by mouth once * NIFEDIPINE ER 30 MG TABLET,EX* Take 1 tablet by mouth once d* METRONIDAZOLE 0.75 % VAGINAL * Twice weekly vaginally x 6 mo* FLUTICASONE 50 MCG/ACTUATION * Use 2 Sprays in each nostril * Problem List As Of Date 01/20/2018 Noted Resolved Calculus of kidney [N20.0] INVALID FOR*03/28/2014 HIDRADENITIS [L73.2] INVALID FOR* Unspecified asthma(493.90) [J45.909] 03/28/2014 More... Hypopotassemia [E87.6] INVALID FOR*03/28/2014 Biliary dyskinesia [K82.8] INVALID FOR*03/28/2014 Acute myopericarditis [I30.9] INVALID FOR*03/28/2014 Migraine with aura and without status migrainos*INVALID FOR* Chronic pelvic pain in female [R10.2, G89.29] INVALID FOR* Acute myopericarditis [I30.9] INVALID FOR* Incidental lung nodule, > 3mm and < 8mm [R91.1] INVALID FOR* More... Hot flashes [R23.2] INVALID FOR* Morbid obesity due to excess calories (HCC) [E6*INVALID FOR* Other instructions from your clinician: Foot Sprain You have been diagnosed with a sprain of your foot. ? A sprain of your foot is an injury to the ligaments in your foot. It IS NOT the same as a sprain of the ankle. A sprain is an injury to a ligament, usually a tear or partial tear. Sprains can often be as painful as a fracture. Sprains can be divided into 3 categories by the amount of injury to the ligaments. A first-degree sprain is considered a minor tear whereas a third degree sprain often involves a chip fracture of the bone that to which the ligament is attached. The general care of a sprain includes the use of a medication to reduce pain, the use of a splint to reduce movement and Resting, Icing, Compressing and Elevating the injured area. Remember this as RICE. ? REST: Limit the use of the injured body part. ? ICE: By applying ice to the affected area, swelling and pain can be reduced. Place some ice cubes in a re-sealable (Ziploc) bag and add some water. Put a thin washcloth between the bag and your skin. Apply the ice bag to the area for at least 20 minutes. Do this at least 4 times per day. Using the ice for longer times and more frequently is OK. NEVER APPLY ICE DIRECTLY TO THE SKIN. ? COMPRESS: Compression means to apply pressure around the injured area such as with a splint, cast or an kandace bandage. Compression decreases swelling and improves comfort. Compression should be tight enough to relieve swelling but not so tight as to decrease circulation. Increasing pain, numbness, tingling, or change in skin color, are all signs of decreased circulation. ? ELEVATE: Elevate the injured part. For example, a leg can be elevated by placing the leg on a chair while sitting and propped up on pillows while lying down. You have been given an orthopedic cast shoe, also called a hard shoe. This shoe is used to make walking more comfortable by not letting your foot bend too much while walking. You can use the shoe for comfort. YOU SHOULD SEEK MEDICAL ATTENTION IMMEDIATELY IF ANY OF THE FOLLOWING OCCURS: ? You experience a severe increase in pain in the affected area. ? You develop new numbness and tingling in or below the affected area. ? You develop a cold, pale foot that appears to have a problem with its blood supply. Disposition: Return if symptoms worsen or fail to improve. Follow-up and Disposition History Recorded Letter Text Jody Becker APRN.[facility] Urgent Care [address] [facility] [address] Dept: [phone] 01/20/2018 Leslie De León [address] [facility] [address] To Whom it May Concern: This is to certify that Leslie De León was seen at our office for medical care. Leslie may return to work on 01/21/2018. If you have any questions please feel free to call. Sincerely: Jody Becker APRN.[facility] Encounter Status:Closed by JODY BECKER on 01/20/18 PROGRESS Observed: 01/06/2018 Status: COMPLETED Source: [place] 8:01 AM [facility] [place] REPOSITORY HNO ID: [id number] Author: Yosef Red (Katie) CORNELL Montano Service: (none) Author Type: Nurse Practitioner Type: Progress Notes Filed: 01/07/2018 7:41 AM Note Text: Chief Complaint Patient presents with: Breathing Problem: SOB x 3 weeks HPI Leslie De León is a 42 year old female who presents here today for Above Complaints. SOB comes and goes. H/o Factor V, diagnosed years ago, follow up visit with Hematology and told no anticoagulant needed. 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 One previous PE, no subsequent DVT or PE. She noted that her recent ER visit for SOB, d-dimer elevated, proceeded with CTA chest which was negative for PE. Because of the elevated d-dimer she is wondering should she be on anticoagulant therapy prophylacticaly. Follows with Dr. Shaikh Legal Cashier. No upcoming apt. States mild SOB at times, intermittent cough, no wheezing. Recently started Advair for COPD, she notes she does cough, non-productive. Former smoker. Previous visit with Jason Kang CNP on 12/17/[address] Clark-Hematology on 06/11/2014 reviewed. Headaches: More frequent headaches that are light sensitive. Treating with Imitrex, has used max doses for the month. BORDEN not always relieved with Imitrex. Seem a little different than usual migraine BORDEN. Wonders if hormonal as pattern seems to be around same time every month. H/o hysterectomy, ovaries remain. BORDEN described as bilateral, location points to parietal area and behind both eyes. Not typical of usual BORDEN. She has been diagnosed with MYLES and using C-pap consistently. 12/17/17 Visit with Sherwin Kang CNP HPI Leslie De León is a 42 year old female who presents here today for ER Follow Up. ? Patient presents to the office for ER follow up for shortness of breath. ER report has been reviewed for this encounter. Patient has a history of cardiomyopathy, GERD, PE, factor V leiden, nephrolithiasis, pericarditis, and GA. She has also underwent a cardiac cath in the past without stent placement. Patient presented to [facility] ER on two separate occasions on 12/15/2017. The first encounter, she presented with shortness of breath and generalized malaise. Had complaints of dyspnea for one day and some mild chest tightness. She also believed that her hands were swollen and that she was retaining fluids. Did also complain of lower back pain. Chest x-ray revealed right basilar atelectasis in the middle lobe. EKG was normal sinus rhythm at 84 bpm, no ectopy or ischemia. CBC, CMP, and urinalysis was unremarkable. Troponin was less than 0.02. BNP was 12. D-dimer was mildly elevated at 0.67. A CT and CTA of the chest indicated atelectasis in the right middle lobe without evidence of PE. She was given a duoneb treatment, Zofran and morphine. Her vital signs were stable, SpO2 95%, afebrile. She was discharged home with the diagnosis of a viral syndrome. She later returned to the ER for complaints right lower back pain and shortness of breath. Stated that her shortness of breath had no improved and was actually worse. Her vital signs were normal, was not hypoxic. Physical exam was normal. UA was normal. She was discharged in stable condition with the diagnosis of right lower back pain without sciatica. ? Since her discharge from the ER, the patient is continuing to complain of shortness of breath. She complaints of constant fatigue, malaise. Does have complaints of hot and cold flashes. Has not taken her temperature at home. Shortness of breath usually occurs when exerting herself. Does complain of wheezing, which usually occurs at night. Does have pain between her shoulders when she deep breathes. Will intermittently have a dry cough, that she has had since she quit smoking. States that it is usually to clear her throat. Does have some shortness of breath at rest. Has been sleeping more than usual. Also has complaints of a headaches since ER visit. They are constant. Denies any visual changes. Headache did wake her up the other night. She does have a history of migraines. Does complain of photophobia. Has tried Imitrex, tylenol for this complaint, which did not help. Does have complaints of lower abdominal pain, states that this is not new, as she usually has a pseudo-like menstrual pain after her hysterectomy. Does complain of nausea and has had a few episodes of emesis. Also had an episode of diarrhea, decreased appetite. Continues to have complaints of swelling. Having a hard time with putting on her wedding ring. Feels as if her lower extremities are swelling. No chest pain. Does have complaints of heart burn. No radiating arm pain. No syncopal events. No eye, ear, nose or throat pain. Weight is stable. Of note is that her was diagnosed with COPD by Dr. Shaikh. Leslie De León ([id number]) Female 1975 Result Date - 05/03/2014 Component Results Component Value Range AND Units Status Performing Lab Cardiolipin Ab, IgG <9 0 - 9 GPL Final [facility] Comment: <10 GPL ? ? Negative 10-40 GPL ? Equivocal >40 GPL ? ? Positive Cardiolipin Ab, IgM 15 (H) 0 - 11 MPL Final [facility] Comment: <12 MPL ? ? Negative 12-40 MPL ? Equivocal >40 MPL ? ? Positive Cardiolipin Ab, IgA <9 0 - 11 APL Final [facility] Comment: <12 APL ? ? Negative 12-40 APL ? Equivocal >40 APL ? ? Positive PT Sec 9.9 8.4 - 13.0 sec Final [facility] PT INR 0.9 0.8 - 1.2 Final [facility] Comment: The PT/INR can be used to monitor the therapeutic effect of oral anticoagulants, such as warfarin. The recommended therapeutic range is an INR of 2.0 to 3.0 for most applications, including treatment and prevention of venous thrombosis, treatment of pulmonary embolism, prevention of strokes/TIA in patients with atrial fibrillation, prevention and treatment of thrombosis in patients with a lupus anticoagulant and prevention of systemic embolization in patients with heart valve disorders. There are certain conditions where clinicians may decide to use a lower or higher therapeutic range eg. 1.5 to 1.9 for secondary prevention of idiopathic venous thromboembolism and an INR 2.5 to 3.5 for older generation mechanical heart valves. Ansell, et al. CHEST 2004: 126:204S to 233S. APTT 25.0 23.0 - 32.4 sec Final [facility] Comment: The APTT can be used to monitor the therapeutic effect of heparin. The recommended therapeutic range for treatment of venous and arterial thrombosis with intravenous unfractionated heparin is 60 to 85 ?seconds, which corresponds to a heparin anti Xa activity level of 0.3 to 0.7 IU/mL. In patients with concomitant therapy with thrombolytic agents ?and/or platelet glycoprotein IIb/IIIa antagonists, the recommended therapeutic range is 53 to 71 seconds, corresponding to a heparin anti Xa activity level ?of 0.2 to 0.5 IU/mL. The APTT therapeutic range has been determined for the current lot of laboratory APTT reagent. Fib Clot 365 200 - 400 mg/dL Final [facility] CRP 1.4 (H) 0.0 - 1.0 mg/dL Final [facility]CM Pro C Fun 125 76 - 147 % Final [facility] Protein S Clottable 77 59 - 131 % Final [facility] Antithrombin Assay 106 84 - 138 % Final [facility]CM APC Resistance 2.80 >2.17 Final [facility]CM Factor VIII:C Assay 280 (H) 50 - 173 % Final [facility] Hex Phase Screen 47.6 (L) 48.9 - 70.2 sec Final [facility]CM Hex Phase Confirm 43.2 (L) 45.1 - 64.1 sec Final CCM Hex Phase Delta 4.4 <9.0 delta sec Final [facility]CM Interpretation (HYPERCOAG) Final CCM (NOTE) Performing Pathologist: Oxana Howard M.D. Interpretation: Abnormal - see comment below. SIGNIFICANT FINDINGS: 1. Elevated Factor VIII and CRP, suggestive of acute phase response ?A laboratory evaluation for congenital and acquired risk factors for thrombophilia was performed. ?Both the PT and APTT results are normal. LUPUS ANTICOAGULANT AND ANTIPHOSPHOLIPID ANTIBODY TESTING: ?The normal hexagonal phase phospholipid neutralization and APTT assays make a lupus anticoagulant unlikely. ?One or more of the anticardiolipin antibody titers were minimally elevated. These findings are of doubtful clinical significance. PROTEIN STUDIES: ?The elevated factor VIII and C-reactive protein levels suggest an acute phase response. It has not been firmly established whether or not an elevated factor VIII in this setting is still a significant thrombophilic risk factor. ?The level of C-reactive protein can be elevated for many reasons including an acute phase response, myocardial infarction, malignancy, infection, pancreatitis, acute trauma and some connective tissue disorders. Please correlate this result with clinical findings. ?Suggest rechecking the factor VIII, fibrinogen and CRP levels in 8- 12 weeks to determine whether the factor VIII is still elevated and the acute phase response has resolved. GENOTYPING STUDIES: ?The activated protein C resistance ratio (APC-R) is normal. The Factor V Leiden mutation is unlikely. ? The patient is negative for the [id number] mutation in the prothrombin gene. ?Please refer to the interpretation provided with the prothrombin genotyping result for further diagnostic and prognostic information. ??Other assay results were within the normal range. ?Please correlate these laboratory results with clinical findings and medication history. Homocysteine, Plasma 10.8 3.4 - 12.9 umol/L Final CCM PT Gene Mut Result Normal Final CCM PT Gene Report Final CCM The DNA sample is negative for the [id number] point mutation in the 3' untranslated region of the prothrombin gene. This is not associated with an increased risk of venous thrombosis. Venous thrombosis is a multifactorial disorder, and other causes of venous thrombosis are not excluded. This assay was performed by polymerase chain reaction and fluorescence monitoring using hybridization probes. 06/11/14: Dr. Clark ASSESSMENT: Elevated factor VIII and CRP suggest an acute phase reactant secondary to pericarditis. Anti- cardiolipin antibody minimally elevated with no suggestion of lupus anticoagulant. ? PLAN: I recommend repeating Anti- cardiolipin antibodies, CRP and factor VIII levels in 2 months. If all these levels are normal, no further evaluation is needed. Patient does not require anticoagulation therapy at this time with no evidence of DVT or thromboembolus. I also recommend screening bilateral mammogram because of family history of breast cancer. I will call Mrs. Li in 2 months regarding her test results. No followup scheduled at this time. ? ? Harsh Clark MD. ELECTRONICALLY SIGNED ?Harsh Clark ? 08/02/14 10:54 AM Note Please let patient know that all her lab tests results are normal. No followup is needed at this time. ? Harsh Clark MD ? Past medical history, appointments, medications, allergies reviewed. Previous Medical History PAST MEDICAL HISTORY Diagnosis Date - Abnormal glandular Papanicolaou smear of cervix Abn. Pap smear (cervix) - Acute myopericarditis 2011 cardiomyopathy - Dysthymic disorder Depression (non-psychotic) - Hypertension - Incidental lung nodule, > 3mm and < 8mm 03/24/2017 03/17/17: 7.5 mm nodule RLL - Migraine with aura and without status migrainosus, not intractable 01/09/2016 - Morbid obesity due to excess calories (HCC) 03/24/2017 - Protein S deficiency (HCC) - Pulmonary embolus (HCC) 2007 left lung, after delivery with cardiomyopathy - RLL pneumonia (HCC) 03/10/2017 - Unspecified asthma(493.90) - Urinary calculus, unspecified 2004 Renal stones Previous Surgical History PAST SURGICAL HISTORY Procedure Laterality Date - HYSTEROSCOPY WBX WWO D AND C ANDOR POLYPECTOMY 2013 - INT REPAIR SCALP,WILLARD,TRUNK 7.6-12.5CM 02/21/07 RIGHT - INT REPAIR SCALP,WILLARD,TRUNK 7.6-12.5CM 02/21/07 LEFT - LAP CHOLECYSTECT/CHOLANGIOGRAPHY 10-27-11 - LAPAROSCOPIC TUBAL LIGATION/RING/CLIP 04/03/2014 filshie clips - LAPAROSCOPY, SURGICAL, URETEROLITHO - PAST SURGICAL HISTORY OF 2007 heart cath at [facility] by Dr. Aburto - REM LESION TRUNK,ARM,LEG 0.6 -1.0CM 01/26/07 Exc. right axillary and right ant. thigh lesions - REM LESION TRUNK,ARM,LEG > 4.0CM 02/21/07 RIGHT - REM LESION TRUNK,ARM,LEG > 4.0CM 02/21/07 LEFT - THERMAL ENDOMETRIAL ABLATION 04/03/2014 thermachoice ablation Family History FAMILY HISTORY Problem Relation Age of Onset - Cancer Mother UTERUS - Diabetes Mother - Hypertension Mother - Diabetes Father - Heart Father - Hypertension Father - Developmental problem Maternal Aunt - Hypertension Maternal Grandmother - Colon Cancer Maternal Grandfather - Hypertension Maternal Grandfather - Diabetes Maternal Grandfather - Heart Maternal Grandfather - Diabetes Maternal Grandmother - Diabetes Paternal Grandmother - Diabetes Paternal Grandfather - Hearing Loss Paternal Grandfather - Hearing Loss Daughter - COPD Maternal Grandfather - Thyroid Mother - Heart Paternal Grandmother GA - Pancreatitis [Other] [OTHER] Mother Patient Allergies ALLERGIES Allergen Reactions - Penicillins Hives - Tramadol Vomiting Current Medications Current Outpatient Prescriptions on File Prior to Visit: hydroCHLOROthiazide (HYDRODIURIL, ESIDRIX) 25 mg tablet Take 1 tablet by mouth once daily. fluticasone-salmeterol (ADVAIR DISKUS) 100-50 mcg/dose dsdv Inhale 1 Puff as instructed twice daily. Rinse mouth out after use with water. albuterol HFA (PROAIR HFA) 90 mcg/actuation inhaler Inhale 2 Puffs as instructed every 4 hours as needed. LORazepam (ATIVAN) 0.5 mg tab Take 1 tablet by mouth twice daily as needed (anxiety). citalopram (CELEXA) 20 mg tablet Take 1.5 tablets by mouth once daily. venlafaxine ER (EFFEXOR XR) 37.5 mg 24 hr capsule Take 1 capsule by mouth once daily. NIFEdipine ER (PROCARDIA XL) 30 mg 24 hr tablet Take 1 tablet by mouth once daily. omeprazole (PRILOSEC) 20 mg capsule Take 1 capsule by mouth daily before breakfast. 1/2 hr before meal. metroNIDAZOLE (METROGEL VAGINAL) 0.75 % Vaginal Gel Twice weekly vaginally x 6 months after initial course of flagyl fluticasone (FLONASE) 50 mcg/actuation nasal spray Use 2 Sprays in each nostril once daily. SUMAtriptan (IMITREX) 50 mg tablet 50mg every 2 hrs as needed for migraine; max 4/day, 9/mo. promethazine (PHENERGAN) 12.5 mg tablet Take 1 tablet by mouth every 6 hours as needed. No current facility-administered medications on file prior to visit. 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 Eyes: Anicteric sclera. Pupils are equally round and reactive to light. Extraocular movements are intact. . Ears: External ears normal, canals clear. Oropharynx: Lips, mucosa, and tongue normal, teeth and gums normal, oropharynx normal. Neck: Supple, no adenopathy; thyroid symmetric, normal size, no bruits. Lungs: Lungs clear to auscultation. No wheezing, rhonchi, rales. Heart: RRR without murmur, gallop, or rubs. No ectopy. Extremities: No deformities, edema, skin discoloration, clubbing or cyanosis. Good capillary refill. Health Maintenance List MAMMOGRAM due on 08/21/2018 PAP EVERY 5 YEARS due on 09/04/2021 HPV EVERY 5 YEARS due on 09/04/2021 TETANUS due on 12/29/2027 INFLUENZA Completed ASSESSMENT/PLAN: 1. SOB (shortness of breath) - ICD9: 786.05, ICD10: R06.02 (primary diagnosis) - Improved, somewhat, likely due to deconditioned states vs COPD dx. She will follow up with Pulmonology as planned and for now continue Advair inhaler 2. Migraine with aura and without status migrainosus, not intractable - ICD9: 346.00, ICD10: G43.109 - Timing of BORDEN suggestive of menstrual migraine. She will track her sx and treat proactively with Naprosyn. She will keep office posted with frequency and severity of her BORDEN. 3. 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 No evidence of hypercoag condition to warrant anticoagulation. I have reviewed these results with the patient. Yosef Montano, MSN PICKER FEEDER.LEAD OPERATOR CNOV Observed: 01/06/2018 Status: COMPLETED Source: [place] 7:40 AM [facility] REPOSITORY Office Visit (FAMPWS) LESLIE DE LEÓN ([id number]) 1975 F Date Time Provider Department 01/06/18 7:40 AM YOSEF MONTANO (HOLD WORKER) MAHAMED During your visit today, we recorded the following information about you: Temperature Pulse Respiration Blood pressure 97.6 degrees 69/minute 16/minute 106/70 Weight 114.3 kg Yosef Montano, MSN DAVID.CORNELL FERRARI 01/07/2018 7:41 AM Signed Chief Complaint Patient presents with: Breathing Problem: SOB x 3 weeks HPI Leslie De León is a 42 year old female who presents here today for Above Complaints. SOB comes and goes. H/o Factor V, diagnosed ANDquot;years agoANDquot;, follow up visit with Hematology and told no anticoagulant needed. 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 One previous PE, no subsequent DVT or PE. She noted that her recent ER visit for SOB, d-dimer elevated, proceeded with CTA chest which was negative for PE. Because of the elevated d-dimer she is wondering should she be on anticoagulant therapy prophylacticaly. Follows with Dr. Shaikh Legal Cashier. No upcoming apt. States mild SOB ANDquot;at timesANDquot;, intermittent cough, no wheezing. Recently started Advair for COPD, she notes she does cough, non-productive. Former smoker. Previous visit with Jason Kang CNP on 12/17/[address] Clark-Hematology on 06/11/2014 reviewed. Headaches: More frequent headaches that are light sensitive. Treating with Imitrex, ANDquot;has used max doses for the monthANDquot;. BORDEN not always relieved with Imitrex. Seem a little different than usual ANDquot;migraine HAANDquot;. Wonders if ANDquot;hormonalANDquot; as pattern seems to be around same time every month. H/o hysterectomy, ovaries remain. BORDEN described as bilateral, location points to parietal area and behind both eyes. Not typical of usual BORDEN. She has been diagnosed with MYLES and using C-pap consistently. 12/17/17 Visit with Sherwin Kang CNP HPI Leslie De Lóen is a 42 year old female who presents here today for ER Follow Up. ? Patient presents to the office for ER follow up for shortness of breath. ER report has been reviewed for this encounter. Patient has a history of cardiomyopathy, GERD, PE, factor V leiden, nephrolithiasis, pericarditis, and GA. She has also underwent a cardiac cath in the past without stent placement. Patient presented to [facility] ER on two separate occasions on 12/15/2017. The first encounter, she presented with shortness of breath and generalized malaise. Had complaints of dyspnea for one day and some mild chest tightness. She also believed that her hands were swollen and that she was retaining fluids. Did also complain of lower back pain. Chest x-ray revealed right basilar atelectasis in the middle lobe. EKG was normal sinus rhythm at 84 bpm, no ectopy or ischemia. CBC, CMP, and urinalysis was unremarkable. Troponin was less than 0.02. BNP was 12. D-dimer was mildly elevated at 0.67. A CT and CTA of the chest indicated atelectasis in the right middle lobe without evidence of PE. She was given a duoneb treatment, Zofran and morphine. Her vital signs were stable, SpO2 95%, afebrile. She was discharged home with the diagnosis of a viral syndrome. She later returned to the ER for complaints right lower back pain and shortness of breath. Stated that her shortness of breath had no improved and was actually worse. Her vital signs were normal, was not hypoxic. Physical exam was normal. UA was normal. She was discharged in stable condition with the diagnosis of right lower back pain without sciatica. ? Since her discharge from the ER, the patient is continuing to complain of shortness of breath. She complaints of constant fatigue, malaise. Does have complaints of hot and cold flashes. Has not taken her temperature at home. Shortness of breath usually occurs when exerting herself. Does complain of wheezing, which usually occurs at night. Does have pain between her shoulders when she deep breathes. Will intermittently have a dry cough, that she has had since she quit smoking. States that it is usually to clear her throat. Does have some shortness of breath at rest. Has been sleeping more than usual. Also has complaints of a headaches since ER visit. They are constant. Denies any visual changes. Headache did wake her up the other night. She does have a history of migraines. Does complain of photophobia. Has tried Imitrex, tylenol for this complaint, which did not help. Does have complaints of lower abdominal pain, states that this is not new, as she usually has a pseudo-like menstrual pain after her hysterectomy. Does complain of nausea and has had a few episodes of emesis. Also had an episode of diarrhea, decreased appetite. Continues to have complaints of swelling. Having a hard time with putting on her wedding ring. Feels as if her lower extremities are swelling. No chest pain. Does have complaints of heart burn. No radiating arm pain. No syncopal events. No eye, ear, nose or throat pain. Weight is stable. Of note is that her was diagnosed with COPD by Dr. Shaikh. Leslie De León ([id number]) Female 1975 Result Date - 05/03/2014 Component Results Component Value Range ANDamp; Units Status Performing Lab Cardiolipin Ab, IgG ANDlt;9 0 - 9 GPL Final [facility] Comment: ANDlt;10 GPL ? ? Negative 10-40 GPL ? Equivocal ANDgt;40 GPL ? ? Positive Cardiolipin Ab, IgM 15 (H) 0 - 11 MPL Final [facility] Comment: ANDlt;12 MPL ? ? Negative 12-40 MPL ? Equivocal ANDgt;40 MPL ? ? Positive Cardiolipin Ab, IgA ANDlt;9 0 - 11 APL Final [facility] Comment: ANDlt;12 APL ? ? Negative 12-40 APL ? Equivocal ANDgt;40 APL ? ? Positive PT Sec 9.9 8.4 - 13.0 sec Final [facility] PT INR 0.9 0.8 - 1.2 Final [facility] Comment: The PT/INR can be used to monitor the therapeutic effect of oral anticoagulants, such as warfarin. The recommended therapeutic range is an INR of 2.0 to 3.0 for most applications, including treatment and prevention of venous thrombosis, treatment of pulmonary embolism, prevention of strokes/TIA in patients with atrial fibrillation, prevention and treatment of thrombosis in patients with a lupus anticoagulant and prevention of systemic embolization in patients with heart valve disorders. There are certain conditions where clinicians may decide to use a lower or higher therapeutic range eg. 1.5 to 1.9 for secondary prevention of idiopathic venous thromboembolism and an INR 2.5 to 3.5 for older generation mechanical heart valves. Esha, et al. CHEST 2004: 126:204S to 233S. APTT 25.0 23.0 - 32.4 sec Final [facility] Comment: The APTT can be used to monitor the therapeutic effect of heparin. The recommended therapeutic range for treatment of venous and arterial thrombosis with intravenous unfractionated heparin is 60 to 85 ?seconds, which corresponds to a heparin anti Xa activity level of 0.3 to 0.7 IU/mL. In patients with concomitant therapy with thrombolytic agents ?and/or platelet glycoprotein IIb/IIIa antagonists, the recommended therapeutic range is 53 to 71 seconds, corresponding to a heparin anti Xa activity level ?of 0.2 to 0.5 IU/mL. The APTT therapeutic range has been determined for the current lot of laboratory APTT reagent. Fib Clot 365 200 - 400 mg/dL Final [facility] CRP 1.4 (H) 0.0 - 1.0 mg/dL Final [facility] Pro C Fun 125 76 - 147 % Final [facility] Protein S Clottable 77 59 - 131 % Final [facility] Antithrombin Assay 106 84 - 138 % Final [facility] APC Resistance 2.80 ANDgt;2.17 Final [facility] Factor VIII:C Assay 280 (H) 50 - 173 % Final [facility] Hex Phase Screen 47.6 (L) 48.9 - 70.2 sec Final [facility] Hex Phase Confirm 43.2 (L) 45.1 - 64.1 sec Final [facility]CM Hex Phase Delta 4.4 ANDlt;9.0 delta sec Final [facility] Interpretation (HYPERCOAG) Final CCM (NOTE) Performing Pathologist: Oxana Howard M.D. Interpretation: Abnormal - see comment below. SIGNIFICANT FINDINGS: 1. Elevated Factor VIII and CRP, suggestive of acute phase response ?A laboratory evaluation for congenital and acquired risk factors for thrombophilia was performed. ?Both the PT and APTT results are normal. LUPUS ANTICOAGULANT AND ANTIPHOSPHOLIPID ANTIBODY TESTING: ?The normal hexagonal phase phospholipid neutralization and APTT assays make a lupus anticoagulant unlikely. ?One or more of the anticardiolipin antibody titers were minimally elevated. These findings are of doubtful clinical significance. PROTEIN STUDIES: ?The elevated factor VIII and C-reactive protein levels suggest an acute phase response. It has not been firmly established whether or not an elevated factor VIII in this setting is still a significant thrombophilic risk factor. ?The level of C-reactive protein can be elevated for many reasons including an acute phase response, myocardial infarction, malignancy, infection, pancreatitis, acute trauma and some connective tissue disorders. Please correlate this result with clinical findings. ?Suggest rechecking the factor VIII, fibrinogen and CRP levels in 8- 12 weeks to determine whether the factor VIII is still elevated and the acute phase response has resolved. GENOTYPING STUDIES: ?The activated protein C resistance ratio (APC-R) is normal. The Factor V Leiden mutation is unlikely. ? The patient is negative for the [id number] mutation in the prothrombin gene. ?Please refer to the interpretation provided with the prothrombin genotyping result for further diagnostic and prognostic information. ??Other assay results were within the normal range. ?Please correlate these laboratory results with clinical findings and medication history. Homocysteine, Plasma 10.8 3.4 - 12.9 umol/L Final [facility] PT Gene Mut Result Normal Final [facility]CM PT Gene Report Final CCM The DNA sample is negative for the [id number] point mutation in the 3' untranslated region of the prothrombin gene. This is not associated with an increased risk of venous thrombosis. Venous thrombosis is a multifactorial disorder, and other causes of venous thrombosis are not excluded. This assay was performed by polymerase chain reaction and fluorescence monitoring using hybridization probes. 06/11/14: Dr. Clark ASSESSMENT: Elevated factor VIII and CRP suggest an acute phase reactant secondary to pericarditis. Anti- cardiolipin antibody minimally elevated with no suggestion of lupus anticoagulant. ? PLAN: I recommend repeating Anti- cardiolipin antibodies, CRP and factor VIII levels in 2 months. If all these levels are normal, no further evaluation is needed. Patient does not require anticoagulation therapy at this time with no evidence of DVT or thromboembolus. I also recommend screening bilateral mammogram because of family history of breast cancer. I will call Mrs. Li in 2 months regarding her test results. No followup scheduled at this time. ? ? Harsh Clark MD. ELECTRONICALLY SIGNED ?Harsh Clark ? 08/02/14 10:54 AM Note Please let patient know that all her lab tests results are normal. No followup is needed at this time. ? Harsh Clark MD ? Past medical history, appointments, medications, allergies reviewed. Previous Medical History PAST MEDICAL HISTORY Diagnosis Date - Abnormal glandular Papanicolaou smear of cervix Abn. Pap smear (cervix) - Acute myopericarditis 2011 cardiomyopathy - Dysthymic disorder Depression (non-psychotic) - Hypertension - Incidental lung nodule, ANDgt; 3mm and ANDlt; 8mm 03/24/2017 03/17/17: 7.5 mm nodule RLL - Migraine with aura and without status migrainosus, not intractable 01/09/2016 - Morbid obesity due to excess calories (HCC) 03/24/2017 - Protein S deficiency (HCC) - Pulmonary embolus (HCC) 2007 left lung, after delivery with cardiomyopathy - RLL pneumonia (HCC) 03/10/2017 - Unspecified asthma(493.90) - Urinary calculus, unspecified 2004 Renal stones Previous Surgical History PAST SURGICAL HISTORY Procedure Laterality Date - HYSTEROSCOPY WBX WWO D AND C ANDOR POLYPECTOMY 2013 - INT REPAIR SCALP,WILLARD,TRUNK 7.6-12.5CM 02/21/07 RIGHT - INT REPAIR SCALP,WILLARD,TRUNK 7.6-12.5CM 02/21/07 LEFT - LAP CHOLECYSTECT/CHOLANGIOGRAPHY 10-27-11 - LAPAROSCOPIC TUBAL LIGATION/RING/CLIP 04/03/2014 filshie clips - LAPAROSCOPY, SURGICAL, URETEROLITHO - PAST SURGICAL HISTORY OF 2007 heart cath at [facility] by Dr. Aburto - REM LESION TRUNK,ARM,LEG 0.6 -1.0CM 01/26/07 Exc. right axillary and right ant. thigh lesions - REM LESION TRUNK,ARM,LEG ANDgt; 4.0CM 02/21/07 RIGHT - REM LESION TRUNK,ARM,LEG ANDgt; 4.0CM 02/21/07 LEFT - THERMAL ENDOMETRIAL ABLATION 04/03/2014 thermachoice ablation Family History FAMILY HISTORY Problem Relation Age of Onset - Cancer Mother UTERUS - Diabetes Mother - Hypertension Mother - Diabetes Father - Heart Father - Hypertension Father - Developmental problem Maternal Aunt - Hypertension Maternal Grandmother - Colon Cancer Maternal Grandfather - Hypertension Maternal Grandfather - Diabetes Maternal Grandfather - Heart Maternal Grandfather - Diabetes Maternal Grandmother - Diabetes Paternal Grandmother - Diabetes Paternal Grandfather - Hearing Loss Paternal Grandfather - Hearing Loss Daughter - COPD Maternal Grandfather - Thyroid Mother - Heart Paternal Grandmother GA - Pancreatitis [Other] [OTHER] Mother Patient Allergies ALLERGIES Allergen Reactions - Penicillins Hives - Tramadol Vomiting Current Medications Current Outpatient Prescriptions on File Prior to Visit: hydroCHLOROthiazide (HYDRODIURIL, ESIDRIX) 25 mg tablet Take 1 tablet by mouth once daily. fluticasone-salmeterol (ADVAIR DISKUS) 100-50 mcg/dose dsdv Inhale 1 Puff as instructed twice daily. Rinse mouth out after use with water. albuterol HFA (PROAIR HFA) 90 mcg/actuation inhaler Inhale 2 Puffs as instructed every 4 hours as needed. LORazepam (ATIVAN) 0.5 mg tab Take 1 tablet by mouth twice daily as needed (anxiety). citalopram (CELEXA) 20 mg tablet Take 1.5 tablets by mouth once daily. venlafaxine ER (EFFEXOR XR) 37.5 mg 24 hr capsule Take 1 capsule by mouth once daily. NIFEdipine ER (PROCARDIA XL) 30 mg 24 hr tablet Take 1 tablet by mouth once daily. omeprazole (PRILOSEC) 20 mg capsule Take 1 capsule by mouth daily before breakfast. 1/2 hr before meal. metroNIDAZOLE (METROGEL VAGINAL) 0.75 % Vaginal Gel Twice weekly vaginally x 6 months after initial course of flagyl fluticasone (FLONASE) 50 mcg/actuation nasal spray Use 2 Sprays in each nostril once daily. SUMAtriptan (IMITREX) 50 mg tablet 50mg every 2 hrs as needed for migraine; max 4/day, 9/mo. promethazine (PHENERGAN) 12.5 mg tablet Take 1 tablet by mouth every 6 hours as needed. No current facility-administered medications on file prior to visit. 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 Eyes: Anicteric sclera. Pupils are equally round and reactive to light. Extraocular movements are intact. . Ears: External ears normal, canals clear. Oropharynx: Lips, mucosa, and tongue normal, teeth and gums normal, oropharynx normal. Neck: Supple, no adenopathy; thyroid symmetric, normal size, no bruits. Lungs: Lungs clear to auscultation. No wheezing, rhonchi, rales. Heart: RRR without murmur, gallop, or rubs. No ectopy. Extremities: No deformities, edema, skin discoloration, clubbing or cyanosis. Good capillary refill. Health Maintenance List MAMMOGRAM due on 08/21/2018 PAP EVERY 5 YEARS due on 09/04/2021 HPV EVERY 5 YEARS due on 09/04/2021 TETANUS due on 12/29/2027 INFLUENZA Completed ASSESSMENT/PLAN: 1. SOB (shortness of breath) - ICD9: 786.05, ICD10: R06.02 (primary diagnosis) - Improved, somewhat, likely due to deconditioned states vs COPD dx. She will follow up with Pulmonology as planned and for now continue Advair inhaler 2. Migraine with aura and without status migrainosus, not intractable - ICD9: 346.00, ICD10: G43.109 - Timing of BORDEN suggestive of menstrual migraine. She will track her sx and treat proactively with Naprosyn. She will keep office posted with frequency and severity of her BORDEN. 3. 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 No evidence of hypercoag condition to warrant anticoagulation. I have reviewed these results with the patient. Yosef Montano, MSN PICKER FEEDER.LEAD OPERATOR Referring Provider: SELF [[id number]] Allergies As of Date: 01/06/2018 Noted Allergy Reaction PENICILLINS 07/02/2005 4 - Hives TRAMADOL 01/30/2008 11 - Vomiting Date Reviewed: 01/06/2018 Reviewed by: Aury Perez Timber Appraiser - Fully Assessed Reason for Visit: Breathing Problem [17] Cmt: SOB x 3 weeks Primary Visit Diagnosis:SOB (shortness of breath) [R06.02] Other Visit Diagnoses:Migraine with aura and without status migrainosus, not intractable [G43.109] Feared condition not demonstrated [Z71.1] Prescriptions as of 01/06/2018 Sig: HYDROCHLOROTHIAZIDE 25 MG TAB* Take 1 tablet by mouth once d* FLUTICASONE 100 MCG-SALMETERO* Inhale 1 Puff as instructed t* ALBUTEROL SULFATE HFA 90 MCG/* Inhale 2 Puffs as instructed * LORAZEPAM 0.5 MG TABLET Take 1 tablet by mouth twice * CITALOPRAM 20 MG TABLET Take 1.5 tablets by mouth onc* VENLAFAXINE ER 37.5 MG CAPSUL* Take 1 capsule by mouth once * NIFEDIPINE ER 30 MG TABLET,EX* Take 1 tablet by mouth once d* OMEPRAZOLE 20 MG CAPSULE,MIGUEL ANGEL* Take 1 capsule by mouth daily* METRONIDAZOLE 0.75 % VAGINAL * Twice weekly vaginally x 6 mo* FLUTICASONE 50 MCG/ACTUATION * Use 2 Sprays in each nostril * SUMATRIPTAN 50 MG TABLET 50mg every 2 hrs as needed fo* PROMETHAZINE 12.5 MG TABLET Take 1 tablet by mouth every * Problem List As Of Date 01/06/2018 Noted Resolved Calculus of kidney [N20.0] INVALID FOR*03/28/2014 HIDRADENITIS [L73.2] INVALID FOR* Unspecified asthma(493.90) [J45.909] 03/28/2014 More... Hypopotassemia [E87.6] INVALID FOR*03/28/2014 Biliary dyskinesia [K82.8] INVALID FOR*03/28/2014 Acute myopericarditis [I30.9] INVALID FOR*03/28/2014 Migraine with aura and without status migrainos*INVALID FOR* Chronic pelvic pain in female [R10.2, G89.29] INVALID FOR* Acute myopericarditis [I30.9] INVALID FOR* Incidental lung nodule, > 3mm and < 8mm [R91.1] INVALID FOR* More... Hot flashes [R23.2] INVALID FOR* Morbid obesity due to excess calories (HCC) [E6*INVALID FOR* Encounter Status:Closed by YOSEF MONTANO CNP on 01/07/18 EMERGENCY REPORT Observed: 01/04/2018 Status: F [facility] EM[facility] RO[facility] REPORT NAME ACCOUNT SEX AGE ADMIT DISCHARGE TYPE MED. RECORD# NUMBER DATE DATE LESLIE DE LEÓN [id number] F 42 01/02/18 01/02/18 [id number] ROOM: DATE OF : 1975 PHYSICIAN: Ignacio Hylton CHIEF COMPLAINT: Back pain. HISTORY OF PRESENT ILLNESS: The patient states for about three weeks she has had a mild sharp pain to her mid-upper back. This is mostly pleuritic in nature, worse with deep breathing or coughing. She initially had some pressure sensation to her anterior chest. She still has that, though that seems to have improved, but it has not completely resolved. She was seen a little over two weeks ago at [facility] for these same symptoms and was admitted and had a significant work-up, including stress testing, an echocardiogram and a chest CT, and these were all negative as read by the radiologist and talcer there. She was discharged. However, she states that since being home for two weeks she has continued to have this discomfort and really has not gotten any better, so she presents here for evaluation. She has not had any fever. She has had a very minimal dry cough occasionally. She has no nausea or vomiting. No abdominal pain. PAST MEDICAL HISTORY: Significant for cardiomyopathy that she was diagnosed with in the past. She has factor V deficiency, but according to her, her cardiac work-up was unremarkable while in the hospital at [place]. She has had a PE in the past. She has had kidney stones in the past. She has had a previous hysterectomy and lithotripsy. MEDICATIONS: Per medication reconciliation list. ALLERGIES: She is allergic to penicillin and tramadol. SOCIAL HISTORY: She lives at home. She does not smoke. She drinks alcohol occasionally. She denies drug use. REVIEW OF SYSTEMS: No fever. No shortness of breath. No urinary symptoms. No bowel problems. She does not have any bleeding disorders. PHYSICAL EXAMINATION: This is a 42-year-old, mildly obese, mildly anxious female but does not appear toxic. Her skin is pink, warm and dry. HEENT examination is all within normal limits. Her neck is supple without JVD. Her lungs are clear without crackles or wheezes. She does not have any chest wall or back tenderness. Cardiac exam is a regular rhythm without any ectopy, murmurs, gallops or rubs. Abdomen is slightly obese but soft and nontender. She moves all extremities appropriately without any focal weaknesses. No clubbing, cyanosis or edema. No redness, tenderness or asymmetry. Vital signs: Temperature is 98.2, pulse 80, respirations 16, and blood pressure 124/79. Her oxygen saturation is 95%. Page 1 of 2 [facility] Emergency Room Report DIAGNOSTIC DATA: The patient did have an EKG, which shows normal sinus rhythm. It does not show any acute abnormalities. It looks like she may have a slight repolarization variant but no acute abnormalities. I did proceed to get a chest CT as well as some laboratory studies. Chest CT did not show any acute abnormalities, as read by the radiologist. Laboratories showed a normal CBC. D-dimer was 294. Normal magnesium, BNP and troponin. CMP was within normal limits. EMERGENCY DEPARTMENT COURSE AND TREATMENT: The patient has a pleuritic back pain of uncertain cause. I did elect to treat her for a possible occult infection, and she was given a gram of Rocephin and some Zithromax. We will treat her with some prednisone for possible pleurisy. I recommend that she follow up with her family doctor in two to four days if no better, returning if symptoms worsen. DIAGNOSIS: Pleuritic back pain of uncertain cause. D: Ignacio Hylton MD TD: 01/03/18 07:35 JOB #: [id number] Transcribed by: franklin Electronically signed by: GAGANDEEP Hylton M.D. 01/04/18 07:23 Page 2 of 2 JACINTOBELKIS LESLIE Emergency Room Report CT CHEST (PE PROTOCOL) Observed: 01/02/2018 Status: F Source: [facility] 7:01 PM [place] [address] Patient: LESLIE DE LEÓN Phone#: : [phone] Age: 42 Gender: F Pt. Type: ER Account: [id number] Location: [facility] Ordering: IGNACIO HYLTON Exam Date: 01/02/2018/18:38 Family Phys: SABRINA PARKERTRACY Charge Code: 055264 Physician: Sharp Order #: [id number] DLP Dose#: [id number] PROCEDURE: CT CHEST WITH CONTRAST FOR PE COMPARISON: None. INDICATIONS: Shortness of breath TECHNIQUE: After obtaining the patient's consent, CT images were obtained with non-ionic intravenous contrast material. Multi-planar images were created to optimize visualization of vascular anatomy with MPR/MIPS and 3D imaging. All CT scans at this facility use dose modulation, iterative reconstruction, and/or weight based dosing when appropriate to reduce radiation dose to as low as reasonably achievable. IV CONTRAST: Omnipaque 350,83ml TOTAL DOSE: 26.20 26.20 CTDIvol(mGy) FINDINGS: VASCULATURE: Normal. No visible pulmonary arterial thrombus or attenuation. AORTA: Normal. No aneurysm or dissection. LUNGS: A nonspecific 6 mm right middle lobe nodule is present. No visible pulmonary disease. JESSI: Normal. No mass or adenopathy. MEDIASTINUM: Normal. No mass or adenopathy. CARDIAC: Normal. No enlargement, pericardial thickening, or significant calcification. PLEURA: Normal. No mass or effusion. CHEST WALL: Normal. No mass or axillary adenopathy. LIMITED ABDOMEN: Fatty changes in the liver are present. BONES: Normal. No bony lesion or fracture. OTHER: Negative. Continued Report - Page 2 of 2 Patient: LESLIE DE LEÓN Phone#: : [phone] Age: 42 Gender: F Pt. Type: ER Account: [id number] Location: 052 Ordering: IGNACIO CONCETTA Exam Date: 01/02/2018/18:38 Family Phys: SABRINA PARKERTRACY Charge Code: 126918 Physician: Sharp Order #: [id number] DLP Dose#: [id number] CONCLUSION: No acute disease. Dictated by: Monica Noe MD on 01/03/2018 at 8:59 Approved by: Monica Noe MD on 01/03/2018 at 8:59 CBC Collected: 01/02/2018 Status: F Source: [facility] 6:25 PM [facility] REPOSITORY TYPE CODE TESTS RESULT OUT OF RANGE REFERENCE UNITS LAB CBC(LOINC) CBC Result Comment: CBC-COMPLETE BLOOD COUNT LAB WBC(LOINC) 4.5 - 10.8 x 10EE3/UL WBC 5.7 LAB RBC(LOINC) 4.10 - x 10EE6/UL 5.30 RBC 4.33 LAB HEMOGLOBIN(LOINC) 12.0 - g/dl 16.0 HEMOGLOBIN 13.5 LAB HEMATOCRIT(LOINC) 34.0 - % 46.0 HEMATOCRIT 38.9 LAB MCV(LOINC) 80 - 99 fl MCV 90 LAB MCH(LOINC) 27 - 33 pg MCH 31 LAB MCHC(LOINC) 32 - 36 X10 3 MCHC 35 LAB RDW/CV(LOINC) 12.0 - % 15.6 RDW/CV 13.1 LAB PLATELET(LOINC) 150 - 450 x10EE3/UL PLATELET 196 LAB MPV(LOINC) 6.6 - 10.5 fl MPV 8.9 Result Comment: AUTOMATED DIFFERENTIAL LAB NEUT %(LOINC) 46.0 - 76.0 % NEUT % 57.2 LAB LYMPH %(LOINC) 20.0 - 45.0 % LYMPH % 31.8 LAB MONOS %(LOINC) 0.0 - 10.0 % MONOS % 8.3 LAB EO %(LOINC) 0.0 - 7.0 % EO % 2.2 LAB BASO %(LOINC) 0.0 - 2.0 % BASO % 0.5 LAB Lymph #(LOINC) 0.80 - 2.80 x10EE3/U L Lymph # 1.80 LAB Neut #(LOINC) 1.50 - 7.10 x10EE3/U L Neut # 3.20 LAB Trigg #(LOINC) 0.20 - 1.00 x10EE3/U L Trigg # 0.50 LAB EO #(LOINC) 0.00 - 0.50 x10EE3/U L EO # 0.10 LAB Baso #(LOINC) 0.00 - 0.10 x10EE3/U L Baso # 0.00 LAB MANUAL DIFF(LOINC) MANUAL DIFF N/A LAB MORPHOLOGY(LOINC ) MORPHOLOGY N/A Result Comment: {CD] Performed By: #### [id number] #### [facility],[address] [place], [place] [id number] D-DIMER, QUANTITATIVE Collected: 01/02/2018 Status: F Source: [facility] 6:25 [facility] REPOSITORY TYPE CODE TESTS RESULT OUT OF REFERENCE UNITS RANGE LAB D-DIMER, QUANTITATI VE(LOINC) D-DIMER, QUANTITATIVE Result Comment: QUANT D-DIMER LAB D-DIMER 0 - 230 ng/ml QUANT(LOINC) High D-DIMER QUANT 294 Performed By: #### [id number] #### [address] [address] TROPONIN Collected: 01/02/2018 Status: F Source: [facility] 6:[address] [place] [address] REPOSITORY TYPE CODE TESTS RESULT OUT OF REFERENCE UNITS RANGE LAB TROPONIN 0.00 - 0.05 ng/ml I(LOINC) TROPONIN I <0.01 Result Comment: Elevated troponin (above the 99th percentile) usually indicates myocardial ischemia. Results must be interpreted within the clinical setting. 1.Non-ischemic pathology can also cause elevated troponin levels (e.g., acute pulmonary embolism, myocarditis, pericarditis, heart failure, intracranial injury, rhabdomyolisis, sepsis, shock and renal insufficiency). 2.Approximately 1% of healthy adults have elevated troponin levels. 3.Analytical false positive results rarely occur(due to multiple interferences such as heterophile antibodies). Performed By: #### [id number] #### [address] [address] CMP WITH EGFR Collected: 01/02/2018 Status: F Source: [address] REPOSITORY TYPE CODE TESTS RESULT OUT OF RANGE REFERENCE UNITS LAB CMP with eGFR(LOINC) CMP with eGFR Result Comment: COMPREHENSIVE METABOLIC PANEL LAB SODIUM(LOINC) 136 - 145 mmol/l SODIUM 139 LAB POTASSIUM(LOINC) 3.5 - 5.1 mmol/L POTASSIUM 3.6 LAB CHLORIDE(LOINC) 98 - 107 mmol/L CHLORIDE 105 LAB CO2(LOINC) 21.0 - mmol/L 31.0 CO2 26.8 LAB GLUCOSE(LOINC) 74 - 106 mg/dl GLUCOSE High 108 LAB BUN(LOINC) 6 - 20 mg/dl BUN 15 LAB CREATININE(LOINC) 0.6 - 1.2 mg/dl CREATININE 0.8 LAB AST/SGOT(LOINC) 13 - 39 U/L AST/SGOT 18 LAB ALK PHOS(LOINC) 38 - 126 U/L ALK PHOS 45 LAB CALCIUM(LOINC) 8.6 - mg/dl 10.2 CALCIUM 8.9 LAB TOTAL 6.4 - 8.3 g/dl PROTEIN(LOINC) TOTAL Low PROTEIN 6.3 LAB ALBUMIN(LOINC) 3.4 - 4.8 g/dL ALBUMIN 3.6 LAB GLOBULIN(LOINC) 1.5 - 3.8 G/DL GLOBULIN 2.7 LAB A/G RATIO(LOINC) 0.9 - 1.6 A/G RATIO 1.3 LAB TOTAL BILI(LOINC) 0.0 - 1.5 mg/dl TOTAL BILI 0.4 LAB B/C RATIO(LOINC) 0 - 30 ratio B/C RATIO 19 LAB ALT/SGPT(LOINC) 8 - 35 U/L ALT/SGPT 31 LAB ANION GAP(LOINC) 10 - 20 mmol/L ANION GAP 11 LAB AGE(LOINC) years AGE 40 LAB eGFR(LOINC) 60 - 999 ML/MINUTE eGFR >60 LAB eGFR(AA)(LOINC) 60 - 999 ML/MINUTE eGFR(AA) >60 Result Comment: ACCORDING TO THE NATIONAL KIDNEY DISEASE EDUCATION PROGRAM(NKDE), A NORMAL eGFR IS A VALUE GREATER THAN OR EQUAL TO 60 ML/MIN/1.73 SQ METERS. CHRONIC KIDNEY DISEASE: <60mL/MIN/1.73 SQ METERS KIDNEY FAILURE: <15mL/MIN/1.73 SQ METERS THIS TEST SHOULD ONLY BE USED FOR PATIENTS 18 YEARS OF AGE AND OLDER. Performed By: #### [id number] #### [place] [address] MAGNESIUM Collected: 01/02/2018 Status: F Source: [facility] 6:25 PM [facility] REPOSITORY TYPE CODE TESTS RESULT OUT OF REFERENCE UNITS RANGE LAB MAGNESIUM( 1.6 - 2.6 mg/dl LOINC) MAGNESIUM 1.9 Performed By: #### [id number] #### [place] [address] BNP (B-TYPE NATRIURETIC Collected: 01/02/2018 Status: F [facility] 6:25 PM [facility] REPOSITORY TYPE CODE TESTS RESULT OUT OF RANGE REFERENCE UNITS LAB BNP(LOINC) 1 - 100 pg/ml BNP 7 Performed By: #### [id number] #### [facility],[address] [address] PROGRESS Observed: 12/28/2017 Status: COMPLETED Source: [place] 5:09 PM [facility] [place] REPOSITORY HNO ID: [id number] Author: Jody Red (Katie) LEONIE Becker Service: (none) Author Type: Nurse Practitioner Type: Progress Notes Filed: 12/29/2017 5:59 PM Note Text: Subjective HPI Patient presents with: Laceration: right hand middle finger cut x 1 hour ago Denies numbness/tingling or decrease in ROM. Unsure of last tetanus date. Review of Systems Skin: Finger laceration PAST MEDICAL HISTORY Diagnosis Date - Abnormal glandular Papanicolaou smear of cervix Abn. Pap smear (cervix) - Acute myopericarditis 2011 cardiomyopathy - Dysthymic disorder Depression (non-psychotic) - Hypertension - Incidental lung nodule, > 3mm and < 8mm 03/24/2017 03/17/17: 7.5 mm nodule RLL - Migraine with aura and without status migrainosus, not intractable 01/09/2016 - Morbid obesity due to excess calories (HCC) 03/24/2017 - Protein S deficiency (HCC) - Pulmonary embolus (HCC) 2007 left lung, after delivery with cardiomyopathy - RLL pneumonia (HCC) 03/10/2017 - Unspecified asthma(493.90) - Urinary calculus, unspecified 2004 Renal stones PAST SURGICAL HISTORY Procedure Laterality Date - HYSTEROSCOPY WBX WWO D AND C ANDOR POLYPECTOMY 2013 - INT REPAIR SCALP,WILLARD,TRUNK 7.6-12.5CM 02/21/07 RIGHT - INT REPAIR SCALP,WILLARD,TRUNK 7.6-12.5CM 02/21/07 LEFT - LAP CHOLECYSTECT/CHOLANGIOGRAPHY 10-27-11 - LAPAROSCOPIC TUBAL LIGATION/RING/CLIP 04/03/2014 filshie clips - LAPAROSCOPY, SURGICAL, URETEROLITHO - PAST SURGICAL HISTORY OF 2007 heart cath at [facility] by Dr. Aburto - REM LESION TRUNK,ARM,LEG 0.6 -1.0CM 01/26/07 Exc. right axillary and right ant. thigh lesions - REM LESION TRUNK,ARM,LEG > 4.0CM 02/21/07 RIGHT - REM LESION TRUNK,ARM,LEG > 4.0CM 02/21/07 LEFT - THERMAL ENDOMETRIAL ABLATION 04/03/2014 thermachoice ablation ALLERGIES Penicillins; Tramadol MEDICATIONS fluticasone-salmeterol (ADVAIR DISKUS) 100-50 mcg/dose dsdv Inhale 1 Puff as instructed twice daily. Rinse mouth out after use with water. albuterol HFA (PROAIR HFA) 90 mcg/actuation inhaler Inhale 2 Puffs as instructed every 4 hours as needed. LORazepam (ATIVAN) 0.5 mg tab Take 1 tablet by mouth twice daily as needed (anxiety). citalopram (CELEXA) 20 mg tablet Take 1.5 tablets by mouth once daily. promethazine (PHENERGAN) 12.5 mg tablet Take 1 tablet by mouth every 6 hours as needed. venlafaxine ER (EFFEXOR XR) 37.5 mg 24 hr capsule Take 1 capsule by mouth once daily. NIFEdipine ER (PROCARDIA XL) 30 mg 24 hr tablet Take 1 tablet by mouth once daily. omeprazole (PRILOSEC) 20 mg capsule Take 1 capsule by mouth daily before breakfast. 1/2 hr before meal. hydroCHLOROthiazide (HYDRODIURIL, ESIDRIX) 25 mg tablet Take 1 tablet by mouth once daily. metroNIDAZOLE (METROGEL VAGINAL) 0.75 % Vaginal Gel Twice weekly vaginally x 6 months after initial course of flagyl fluticasone (FLONASE) 50 mcg/actuation nasal spray Use 2 Sprays in each nostril once daily. SUMAtriptan (IMITREX) 50 mg tablet 50mg every 2 hrs as needed for migraine; max 4/day, 9/mo. FAMILY HISTORY Problem Relation Age of Onset - Cancer Mother UTERUS - Diabetes Mother - Hypertension Mother - Diabetes Father - Heart Father - Hypertension Father - Developmental problem Maternal Aunt - Hypertension Maternal Grandmother - Colon Cancer Maternal Grandfather - Hypertension Maternal Grandfather - Diabetes Maternal Grandfather - Heart Maternal Grandfather - Diabetes Maternal Grandmother - Diabetes Paternal Grandmother - Diabetes Paternal Grandfather - Hearing Loss Paternal Grandfather - Hearing Loss Daughter - COPD Maternal Grandfather - Thyroid Mother - Heart Paternal Grandmother GA - Pancreatitis [Other] [OTHER] Mother Social History Substance Use Topics - Smoking status: Former Smoker Packs/day: 0.50 Years: 16.00 Types: Cigarettes Quit date: 07/19/2013 - Smokeless tobacco: Never Used - Alcohol use 1.5 oz/week 1 Glasses of Wine (5oz) per week Comment: Rarely Objective Physical Exam Skin: Right hand 3 digit posterior middle phalanx with 1cmx 0.25cm laceration. Normal sensation and ROM in digit. Cap refill +3. Nursing note and vitals reviewed. With verbal consent from patient Right hand 3rd digit laceration sutured with edges well approx with 2 simple interrupted 4-0 sutures and 2cc of 1% Lidocaine was used for a digital block. Area cleansed with betadine and flushed with normal saline, no foreign debris noted. Pt tolerated procedure well. Non-adherent dressing applied and koban. ASSESSMENT/PLAN: 1. 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 -May use otc antibiotic ointment PRN -F/u with in 7-10 days for suture removal. -ADACEL Prescription instructions reviewed with patient as applicable. Patient advised if symptoms do not improve or if symptoms worsen sooner, to contact their primary care physician. Potential red flag symptoms discussed with the patient. Reviewed appropriate action plan to take if red flag symptoms occur. Patient agreeable to treatment plan. Jody Becker CNP CNOV Observed: 12/28/2017 Status: COMPLETED Source: [place] 1:15 PM [facility] REPOSITORY Office Visit ([facility]) LESLIE DE LEÓN ([id number]) 1975 F Date Time Provider Department 12/28/17 1:15 PM JODY BECKER (KATIE) [facility] During your visit today, we recorded the following information about you: Temperature Pulse Respiration Blood pressure 98.9 degrees 74/minute 16/minute 122/78 Weight 114.3 kg Jody Becker CNP, CNP 12/28/2017 2:21 PM Signed WOUND CARE GENERAL INFORMATION: A wound is a break in the skin. There are several types of wounds. Abrasions occur when the outer layer of the skin is rubbed or scraped off. Lacerations are cuts in the skin. Puncture wounds are holes that are made by round, sharp objects such as needles or nails. It may have been necessary to close the wound with stitches (sutures) to speed healing and to prevent infection. Using stitches also will decrease the amount of scarring. INSTRUCTIONS: 1. Keep the bandage clean and dry. If it gets wet and you need to change it, unwrap slowly and carefully. If it sticks and starts to hurt, use water to loosen it gently. Pat the area dry with a clean towel before putting on another bandage. You may use antibiotic ointment. 2. If possible, keep the wound raised for 24-48 hours to decrease pain and swelling and help healing. 3. Leave the dressing on for 24 Hours. 4. Clean the wound 3 to 4 times a day: Use soap and water to clean your wound gently. OR Use a cotton tipped swab dipped in a mixture of half water and half hydrogen peroxide. For mouth and lip wounds, rinse your mouth after meals and at bedtime with ? strength hydrogen peroxide or antiseptic mouthwash and then spit it out. Do not swallow the mixture. Puncture wounds may be soaked in warm water for 10 minutes. 5. If you have a scalp wound, you may wash your hair gently after 24 hours. You may then wash it gently daily and pat it dry. 6. See your follow-up physician or return to the office for a wound check in 3 days if not improving. Suture removal in 7 days. CONTACT YOUR DOCTOR OR RETURN TO THE OFFICE IF: 1. You have a temperature over 100.4 F (38 C). 2. You have signs of infection such as increasing pain or soreness, swelling, redness, pus, a foul smell, or red streaks coming from the injured site. 3. You have numbness or swelling below the wound, or you can't move the joint below. Jody Becker CNP, LEONIE 12/29/2017 5:59 PM Addendum Subjective HPI Patient presents with: Laceration: right hand middle finger cut x 1 hour ago Denies numbness/tingling or decrease in ROM. Unsure of last tetanus date. Review of Systems Skin: Finger laceration PAST MEDICAL HISTORY Diagnosis Date - Abnormal glandular Papanicolaou smear of cervix Abn. Pap smear (cervix) - Acute myopericarditis 2011 cardiomyopathy - Dysthymic disorder Depression (non-psychotic) - Hypertension - Incidental lung nodule, ANDgt; 3mm and ANDlt; 8mm 03/24/2017 03/17/17: 7.5 mm nodule RLL - Migraine with aura and without status migrainosus, not intractable 01/09/2016 - Morbid obesity due to excess calories (HCC) 03/24/2017 - Protein S deficiency (HCC) - Pulmonary embolus (HCC) 2007 left lung, after delivery with cardiomyopathy - RLL pneumonia (HCC) 03/10/2017 - Unspecified asthma(493.90) - Urinary calculus, unspecified 2004 Renal stones PAST SURGICAL HISTORY Procedure Laterality Date - HYSTEROSCOPY WBX WWO D AND C ANDOR POLYPECTOMY 2013 - INT REPAIR SCALP,WILLARD,TRUNK 7.6-12.5CM 02/21/07 RIGHT - INT REPAIR SCALP,WILLARD,TRUNK 7.6-12.5CM 02/21/07 LEFT - LAP CHOLECYSTECT/CHOLANGIOGRAPHY 10-27-11 - LAPAROSCOPIC TUBAL LIGATION/RING/CLIP 04/03/2014 filshie clips - LAPAROSCOPY, SURGICAL, URETEROLITHO - PAST SURGICAL HISTORY OF 2007 heart cath at [facility] by Dr. Aburto - REM LESION TRUNK,ARM,LEG 0.6 -1.0CM 01/26/07 Exc. right axillary and right ant. thigh lesions - REM LESION TRUNK,ARM,LEG ANDgt; 4.0CM 02/21/07 RIGHT - REM LESION TRUNK,ARM,LEG ANDgt; 4.0CM 02/21/07 LEFT - THERMAL ENDOMETRIAL ABLATION 04/03/2014 thermachoice ablation ALLERGIES Penicillins; Tramadol MEDICATIONS fluticasone-salmeterol (ADVAIR DISKUS) 100-50 mcg/dose dsdv Inhale 1 Puff as instructed twice daily. Rinse mouth out after use with water. albuterol HFA (PROAIR HFA) 90 mcg/actuation inhaler Inhale 2 Puffs as instructed every 4 hours as needed. LORazepam (ATIVAN) 0.5 mg tab Take 1 tablet by mouth twice daily as needed (anxiety). citalopram (CELEXA) 20 mg tablet Take 1.5 tablets by mouth once daily. promethazine (PHENERGAN) 12.5 mg tablet Take 1 tablet by mouth every 6 hours as needed. venlafaxine ER (EFFEXOR XR) 37.5 mg 24 hr capsule Take 1 capsule by mouth once daily. NIFEdipine ER (PROCARDIA XL) 30 mg 24 hr tablet Take 1 tablet by mouth once daily. omeprazole (PRILOSEC) 20 mg capsule Take 1 capsule by mouth daily before breakfast. 1/2 hr before meal. hydroCHLOROthiazide (HYDRODIURIL, ESIDRIX) 25 mg tablet Take 1 tablet by mouth once daily. metroNIDAZOLE (METROGEL VAGINAL) 0.75 % Vaginal Gel Twice weekly vaginally x 6 months after initial course of flagyl fluticasone (FLONASE) 50 mcg/actuation nasal spray Use 2 Sprays in each nostril once daily. SUMAtriptan (IMITREX) 50 mg tablet 50mg every 2 hrs as needed for migraine; max 4/day, 9/mo. FAMILY HISTORY Problem Relation Age of Onset - Cancer Mother UTERUS - Diabetes Mother - Hypertension Mother - Diabetes Father - Heart Father - Hypertension Father - Developmental problem Maternal Aunt - Hypertension Maternal Grandmother - Colon Cancer Maternal Grandfather - Hypertension Maternal Grandfather - Diabetes Maternal Grandfather - Heart Maternal Grandfather - Diabetes Maternal Grandmother - Diabetes Paternal Grandmother - Diabetes Paternal Grandfather - Hearing Loss Paternal Grandfather - Hearing Loss Daughter - COPD Maternal Grandfather - Thyroid Mother - Heart Paternal Grandmother GA - Pancreatitis [Other] [OTHER] Mother Social History Substance Use Topics - Smoking status: Former Smoker Packs/day: 0.50 Years: 16.00 Types: Cigarettes Quit date: 07/19/2013 - Smokeless tobacco: Never Used - Alcohol use 1.5 oz/week 1 Glasses of Wine (5oz) per week Comment: Rarely Objective Physical Exam Skin: Right hand 3 digit posterior middle phalanx with 1cmx 0.25cm laceration. Normal sensation and ROM in digit. Cap refill +3. Nursing note and vitals reviewed. With verbal consent from patient Right hand 3rd digit laceration sutured with edges well approx with 2 simple interrupted 4-0 sutures and 2cc of 1% Lidocaine was used for a digital block. Area cleansed with betadine and flushed with normal saline, no foreign debris noted. Pt tolerated procedure well. Non-adherent dressing applied and koban. ASSESSMENT/PLAN: 1. 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 -May use otc antibiotic ointment PRN -F/u with in 7-10 days for suture removal. -ADACEL Prescription instructions reviewed with patient as applicable. Patient advised if symptoms do not improve or if symptoms worsen sooner, to contact their primary care physician. Potential red flag symptoms discussed with the patient. Reviewed appropriate action plan to take if red flag symptoms occur. Patient agreeable to treatment plan. Jody Becker CNP Referring Provider: SELF [[id number]] Allergies As of Date: 12/28/2017 Noted Allergy Reaction PENICILLINS 07/02/2005 4 - Hives TRAMADOL 01/30/2008 11 - Vomiting Date Reviewed: 12/28/2017 Reviewed by: Olga Hager Ma - Fully Assessed Reason for Visit: Laceration [6317] Cmt: right hand middle finger cut x 1 hour ago Primary Visit Diagnosis:Laceration of right middle finger without foreign body without damage to nail, initial encounter [S61.212A] Order(s):TDAP VACCINE AGE 7+ IM [[id number]] Order #: [id number] Prescriptions as of 12/28/2017 Sig: FLUTICASONE 100 MCG-SALMETERO* Inhale 1 Puff as instructed t* ALBUTEROL SULFATE HFA 90 MCG/* Inhale 2 Puffs as instructed * LORAZEPAM 0.5 MG TABLET Take 1 tablet by mouth twice * CITALOPRAM 20 MG TABLET Take 1.5 tablets by mouth onc* PROMETHAZINE 12.5 MG TABLET Take 1 tablet by mouth every * VENLAFAXINE ER 37.5 MG CAPSUL* Take 1 capsule by mouth once * NIFEDIPINE ER 30 MG TABLET,EX* Take 1 tablet by mouth once d* OMEPRAZOLE 20 MG CAPSULE,MIGUEL ANGEL* Take 1 capsule by mouth daily* HYDROCHLOROTHIAZIDE 25 MG TAB* Take 1 tablet by mouth once d* METRONIDAZOLE 0.75 % VAGINAL * Twice weekly vaginally x 6 mo* FLUTICASONE 50 MCG/ACTUATION * Use 2 Sprays in each nostril * SUMATRIPTAN 50 MG TABLET 50mg every 2 hrs as needed fo* Problem List As Of Date 12/28/2017 Noted Resolved Calculus of kidney [N20.0] INVALID FOR*03/28/2014 HIDRADENITIS [L73.2] INVALID FOR* Unspecified asthma(493.90) [J45.909] 03/28/2014 More... Hypopotassemia [E87.6] INVALID FOR*03/28/2014 Biliary dyskinesia [K82.8] INVALID FOR*03/28/2014 Acute myopericarditis [I30.9] INVALID FOR*03/28/2014 Migraine with aura and without status migrainos*INVALID FOR* Chronic pelvic pain in female [R10.2, G89.29] INVALID FOR* Acute myopericarditis [I30.9] INVALID FOR* Incidental lung nodule, > 3mm and < 8mm [R91.1] INVALID FOR* More... Hot flashes [R23.2] INVALID FOR* Morbid obesity due to excess calories (HCC) [E6*INVALID FOR* Other instructions from your clinician: WOUND CARE GENERAL INFORMATION: A wound is a break in the skin. There are several types of wounds. Abrasions occur when the outer layer of the skin is rubbed or scraped off. Lacerations are cuts in the skin. Puncture wounds are holes that are made by round, sharp objects such as needles or nails. It may have been necessary to close the wound with stitches (sutures) to speed healing and to prevent infection. Using stitches also will decrease the amount of scarring. INSTRUCTIONS: 1. Keep the bandage clean and dry. If it gets wet and you need to change it, unwrap slowly and carefully. If it sticks and starts to hurt, use water to loosen it gently. Pat the area dry with a clean towel before putting on another bandage. You may use antibiotic ointment. 2. If possible, keep the wound raised for 24-48 hours to decrease pain and swelling and help healing. 3. Leave the dressing on for 24 Hours. 4. Clean the wound 3 to 4 times a day: Use soap and water to clean your wound gently. OR Use a cotton tipped swab dipped in a mixture of half water and half hydrogen peroxide. For mouth and lip wounds, rinse your mouth after meals and at bedtime with ? strength hydrogen peroxide or antiseptic mouthwash and then spit it out. Do not swallow the mixture. Puncture wounds may be soaked in warm water for 10 minutes. 5. If you have a scalp wound, you may wash your hair gently after 24 hours. You may then wash it gently daily and pat it dry. 6. See your follow-up physician or return to the office for a wound check in 3 days if not improving. Suture removal in 7 days. CONTACT YOUR DOCTOR OR RETURN TO THE OFFICE IF: 1. You have a temperature over 100.4 F (38 C). 2. You have signs of infection such as increasing pain or soreness, swelling, redness, pus, a foul smell, or red streaks coming from the injured site. 3. You have numbness or swelling below the wound, or you can't move the joint below. Disposition: Return if symptoms worsen or fail to improve. Follow-up and Disposition History Recorded Encounter Status:Closed by JODY BECKER on 12/29/17 12 LEAD ELECTROCARDIOGRAM Observed: 12/21/2017 Status: F Source: [place] 3:48 PM [facility] [place] REPOSITORY [facility] Cardiovascular Services [address] [place] [address] [id number] 12 Lead EKG 12/15/17 1313 MR#: [id number] Acct: [id number] Name: LESLIE DE LEÓN Rep #: [id number] : 1975 42 From: Jerry Bennett MD Attending Dr: Status: DEP ER Ordering Dr: Alessia Houston MD Date: 12/15/17 Location: ED Sex: F C Admitted: Test Reason : CP Blood Pressure : / mmHG Vent. Rate : 084 BPM Atrial Rate : 084 BPM P-R Int : 144 ms QRS Dur : 074 ms QT Int : 384 ms P-R-T Axes : 018 052 042 degrees QTc Int : 453 ms Normal sinus rhythm Normal ECG Confirmed by JERRY BENNETT MD ([id number]), commercial production editor GERSON CRUZ ([id number]) on 12/21/2017 3:47:29 PM Referred By: CELSO Confirmed By:JERRY BENNETT MD 12/21/17 1547 Date Jerry Bennett MD CC: Sabrina Pena III, MD; Alessia Houston MD Signed PROGRESS Observed: 12/17/2017 Status: COMPLETED Source: [place] 2:35 PM [facility] [place] REPOSITORY HNO ID: [id number] Author: Jason (Leonie) LEONIE Kang Service: (none) Author Type: Nurse Practitioner Type: Progress Notes Filed: 12/17/2017 3:27 PM Note Text: Chief Complaint Patient presents with: ER F/U: hurts to breath - headache, Ibuprofen , no help - HPI Leslie De León is a 42 year old female who presents here today for ER Follow Up. Patient presents to the office for ER follow up for shortness of breath. ER report has been reviewed for this encounter. Patient has a history of cardiomyopathy, GERD, PE, factor V leiden, nephrolithiasis, pericarditis, and GA. She has also underwent a cardiac cath in the past without stent placement. Patient presented to [facility] ER on two separate occasions on 12/15/2017. The first encounter, she presented with shortness of breath and generalized malaise. Had complaints of dyspnea for one day and some mild chest tightness. She also believed that her hands were swollen and that she was retaining fluids. Did also complain of lower back pain. Chest x-ray revealed right basilar atelectasis in the middle lobe. EKG was normal sinus rhythm at 84 bpm, no ectopy or ischemia. CBC, CMP, and urinalysis was unremarkable. Troponin was less than 0.02. BNP was 12. D-dimer was mildly elevated at 0.67. A CT and CTA of the chest indicated atelectasis in the right middle lobe without evidence of PE. She was given a duoneb treatment, Zofran and morphine. Her vital signs were stable, SpO2 95%, afebrile. She was discharged home with the diagnosis of a viral syndrome. She later returned to the ER for complaints right lower back pain and shortness of breath. Stated that her shortness of breath had no improved and was actually worse. Her vital signs were normal, was not hypoxic. Physical exam was normal. UA was normal. She was discharged in stable condition with the diagnosis of right lower back pain without sciatica. Since her discharge from the ER, the patient is continuing to complain of shortness of breath. She complaints of constant fatigue, malaise. Does have complaints of hot and cold flashes. Has not taken her temperature at home. Shortness of breath usually occurs when exerting herself. Does complain of wheezing, which usually occurs at night. Does have pain between her shoulders when she deep breathes. Will intermittently have a dry cough, that she has had since she quit smoking. States that it is usually to clear her throat. Does have some shortness of breath at rest. Has been sleeping more than usual. Also has complaints of a headaches since ER visit. They are constant. Denies any visual changes. Headache did wake her up the other night. She does have a history of migraines. Does complain of photophobia. Has tried Imitrex, tylenol for this complaint, which did not help. Does have complaints of lower abdominal pain, states that this is not new, as she usually has a pseudo-like menstrual pain after her hysterectomy. Does complain of nausea and has had a few episodes of emesis. Also had an episode of diarrhea, decreased appetite. Continues to have complaints of swelling. Having a hard time with putting on her wedding ring. Feels as if her lower extremities are swelling. No chest pain. Does have complaints of heart burn. No radiating arm pain. No syncopal events. No eye, ear, nose or throat pain. Weight is stable. Of note is that her was diagnosed with COPD by Dr. Shaikh in March 2017. She is not on any daily inhalers. Has not had an albuterol inhaler prescription for an extended time period. She did call in to schedule an appointment for this complaint and was instructed to get a x-ray of the chest, which she completed. Results are as: Impression IMPRESSION: Findings as described above. Row Boss Hoeing: MATEO ? Transcribe Date/Time: Dec ?2:33P Dictated by : KADE ODOM MD This examination was interpreted and the report reviewed and electronically signed by: KADE ODOM MD on Dec ?2:34PM ?EST Results-Findings * * *Final Report* * * DATE OF EXAM: Dec ?2:26PM ? WOX ? 5291 ?- ?XR CHEST 2V FRONTAL/LAT ?/ PROCEDURE REASON: Shortness of breath ?? ? * * * * Physician Interpretation * * * * ?EXAMINATION: ?CHEST RADIOGRAPH (2 VIEW FRONTAL AND LATERAL) Clinical History: ?Shortness of breath MQ: ?XC2_4 Comparison: ?Chest x-ray on 03/08/2015 RESULT: Lines, tubes, and devices: ?None. Lungs and pleura: ?Small lung volume due to inadequate inspiration. ?A few bandlike opacities in the lower lungs, likely representing subsegmental atelectasis, slightly worsened compared to prior study. ?No large pleural effusions or pneumothorax. Cardiomediastinal silhouette: ?Stable cardiac silhouette and mediastinal contour. Other: ?None. Past medical history, appointments, medications, allergies reviewed. Previous Medical History PAST MEDICAL HISTORY Diagnosis Date - Abnormal glandular Papanicolaou smear of cervix Abn. Pap smear (cervix) - Acute myopericarditis 2011 cardiomyopathy - Dysthymic disorder Depression (non-psychotic) - Hypertension - Incidental lung nodule, > 3mm and < 8mm 03/24/2017 03/17/17: 7.5 mm nodule RLL - Migraine with aura and without status migrainosus, not intractable 01/09/2016 - Morbid obesity due to excess calories (HCC) 03/24/2017 - Protein S deficiency (HCC) - Pulmonary embolus (HCC) 2007 left lung, after delivery with cardiomyopathy - RLL pneumonia (HCC) 03/10/2017 - Unspecified asthma(493.90) - Urinary calculus, unspecified 2004 Renal stones Previous Surgical History PAST SURGICAL HISTORY Procedure Laterality Date - HYSTEROSCOPY WBX WWO D AND C ANDOR POLYPECTOMY 2013 - INT REPAIR SCALP,WILLARD,TRUNK 7.6-12.5CM 02/21/07 RIGHT - INT REPAIR SCALP,WILLARD,TRUNK 7.6-12.5CM 02/21/07 LEFT - LAP CHOLECYSTECT/CHOLANGIOGRAPHY 10-27-11 - LAPAROSCOPIC TUBAL LIGATION/RING/CLIP 04/03/2014 filshie clips - LAPAROSCOPY, SURGICAL, URETEROLITHO - PAST SURGICAL HISTORY OF 2007 heart cath at [facility] by Dr. Aburto - REM LESION TRUNK,ARM,LEG 0.6 -1.0CM 01/26/07 Exc. right axillary and right ant. thigh lesions - REM LESION TRUNK,ARM,LEG > 4.0CM 02/21/07 RIGHT - REM LESION TRUNK,ARM,LEG > 4.0CM 02/21/07 LEFT - THERMAL ENDOMETRIAL ABLATION 04/03/2014 thermachoice ablation Family History FAMILY HISTORY Problem Relation Age of Onset - Cancer Mother UTERUS - Diabetes Mother - Hypertension Mother - Diabetes Father - Heart Father - Hypertension Father - Developmental problem Maternal Aunt - Hypertension Maternal Grandmother - Colon Cancer Maternal Grandfather - Hypertension Maternal Grandfather - Diabetes Maternal Grandfather - Heart Maternal Grandfather - Diabetes Maternal Grandmother - Diabetes Paternal Grandmother - Diabetes Paternal Grandfather - Hearing Loss Paternal Grandfather - Hearing Loss Daughter - COPD Maternal Grandfather - Thyroid Mother - Heart Paternal Grandmother GA - Pancreatitis [Other] [OTHER] Mother Patient Allergies ALLERGIES Allergen Reactions - Penicillins Hives - Tramadol Vomiting Current Medications Current Outpatient Prescriptions on File Prior to Visit: LORazepam (ATIVAN) 0.5 mg tab Take 1 tablet by mouth twice daily as needed (anxiety). citalopram (CELEXA) 20 mg tablet Take 1.5 tablets by mouth once daily. promethazine (PHENERGAN) 12.5 mg tablet Take 1 tablet by mouth every 6 hours as needed. venlafaxine ER (EFFEXOR XR) 37.5 mg 24 hr capsule Take 1 capsule by mouth once daily. NIFEdipine ER (PROCARDIA XL) 30 mg 24 hr tablet Take 1 tablet by mouth once daily. omeprazole (PRILOSEC) 20 mg capsule Take 1 capsule by mouth daily before breakfast. 1/2 hr before meal. hydroCHLOROthiazide (HYDRODIURIL, ESIDRIX) 25 mg tablet Take 1 tablet by mouth once daily. metroNIDAZOLE (METROGEL VAGINAL) 0.75 % Vaginal Gel Twice weekly vaginally x 6 months after initial course of flagyl albuterol HFA (PROAIR HFA) 90 mcg/actuation inhaler Inhale 2 Puffs as instructed every 4 hours as needed. fluticasone (FLONASE) 50 mcg/actuation nasal spray Use 2 Sprays in each nostril once daily. SUMAtriptan (IMITREX) 50 mg tablet 50mg every 2 hrs as needed for migraine; max 4/day, 9/mo. No current facility-administered medications on file prior to visit. 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 Reviewed relevant PMHx, PSHx, Social Hx, current medications and allergies. EXAM: BP 112/78 Pulse 88 Temp 37.4 ?C (99.3 ?F) (Tympanic) Wt 116.1 kg (256 lb) LMP 10/13/2011 SpO2 97% BMI 43.94 kg/m2 General Appearance: Well appearing, alert, in no acute distress, well-hydrated, well nourished., Obese. Skin: Skin color, texture, turgor normal, no suspicious rashes or lesions. Head: Normocephalic, no masses, lesions, tenderness or abnormalities. Eyes: Anicteric sclera. Pupils are equally round and reactive to light. Extraocular movements are intact. Ears: External ears normal, canals clear. Nose/Sinuses: Nares normal, septum midline, mucosa normal, no drainage or sinus tenderness. Oropharynx: Lips, mucosa, and tongue normal, teeth and gums normal, oropharynx normal. Neck: Supple, no adenopathy; thyroid symmetric, normal size, no bruits. Lungs: Lungs clear to auscultation. No wheezing, rhonchi, rales. RML, LLL and RLL are diminished noticeably on exam Heart: RRR without murmur, gallop, or rubs. No ectopy. Abdomen: Normal abdominal exam, Abdomen soft, non-tender. Bowel sounds normal. No masses, organomegaly. Extremities: No deformities, edema. Musculoskeletal: No joint swelling, deformity, or tenderness, 5/5 strength of the upper and lower extremities. Peripheral Pulses: Normal, Pulses: radial=4/4, dorsalis pedis=4/4, posterior tibial=4/4. Neurologic: Gait normal. +2/4 patellar reflexes normal and symmetric. Sensation grossly intact. Lymph Nodes: No cervical lymphadenopathy and No supraclavicular lymphadenopathy. Health Maintenance List TETANUS due on 04/09/2015 MAMMOGRAM due on 08/21/2018 PAP EVERY 5 YEARS due on 09/04/2021 HPV EVERY 5 YEARS due on 09/04/2021 INFLUENZA Completed Data reviewed [facility] ER note, labs, CT, CTA , chest x-ray results reviewed. ASSESSMENT/PLAN: 1. Chronic obstructive pulmonary disease, unspecified COPD type (HCC) - ICD9: 496, ICD10: J44.9 (primary diagnosis) - Patient is stable. X-ray is without concerns, atelectasis only. - As evidence by March [address] Shaikh, who had diagnosed her with diffuse, irreversible lung disease consistent with COPD. - FLUTICASONE 100 MCG-SALMETEROL 50 MCG/DOSE BLISTR POWDR FOR INHALATION - ALBUTEROL SULFATE HFA 90 MCG/ACTUATION AEROSOL INHALER - PREDNISONE 20 MG TABLET - Advised ER this weekend if symptoms worsen. Patient verbalized understanding. 2. Migraine with aura and without status migrainosus, not intractable - ICD9: 346.00, ICD10: G43.109 - Continue with migraine treatments. 3. Hospital discharge follow-up - ICD9: V67.59, ICD10: Z09 - See above. Follow up in 1 week, sooner if problems arise. XR CHEST 2V FRONTAL/LAT Observed: 12/17/2017 Status: F Source: [place] 2:26 PM [facility] REPOSITORY * * *Final Report* * * DATE OF EXAM: Dec 17 2017 2:26PM WOX 5291 - XR CHEST 2V FRONTAL/LAT / PROCEDURE REASON: Shortness of breath * * * * Physician Interpretation * * * * EXAMINATION: CHEST RADIOGRAPH (2 VIEW FRONTAL and LATERAL) Clinical History: Shortness of breath MQ: XC2_4 Comparison: Chest x-ray on 03/08/2015 RESULT: Lines, tubes, and devices: None. Lungs and pleura: Small lung volume due to inadequate inspiration. A few bandlike opacities in the lower lungs, likely representing subsegmental atelectasis, slightly worsened compared to prior study. No large pleural effusions or pneumothorax. Cardiomediastinal silhouette: Stable cardiac silhouette and mediastinal contour. Other: None. IMPRESSION: Findings as described above. Row Boss Hoeing: MATEO Transcribe Date/Time: Dec 17 2017 2:33P Dictated by : KADE ODOM MD This examination was interpreted and the report reviewed and electronically signed by: KADE ODOM MD on Dec 17 2017 2:34PM EST [id number] CNOV Observed: 12/17/2017 Status: COMPLETED Source: [place] 2:20 PM [facility] REPOSITORY Office Visit (FAMPWS) LESLIE DE LEÓN ([id number]) 1975 F Date Time Provider Department 12/17/17 2:20 PM JASON KANG (LEONIE) FAMPWS During your visit today, we recorded the following information about you: Temperature Pulse Blood pressure Weight 99.3 degrees 88/minute 112/78 116.1 kg Jason Kang CNP, LEONIE 12/17/2017 3:27 PM Addendum Chief Complaint Patient presents with: ER F/U: hurts to breath - headache, Ibuprofen , no help - HPI Leslienhan De León is a 42 year old female who presents here today for ER Follow Up. Patient presents to the office for ER follow up for shortness of breath. ER report has been reviewed for this encounter. Patient has a history of cardiomyopathy, GERD, PE, factor V leiden, nephrolithiasis, pericarditis, and GA. She has also underwent a cardiac cath in the past without stent placement. Patient presented to [facility] ER on two separate occasions on 12/15/2017. The first encounter, she presented with shortness of breath and generalized malaise. Had complaints of dyspnea for one day and some mild chest tightness. She also believed that her hands were swollen and that she was retaining fluids. Did also complain of lower back pain. Chest x-ray revealed right basilar atelectasis in the middle lobe. EKG was normal sinus rhythm at 84 bpm, no ectopy or ischemia. CBC, CMP, and urinalysis was unremarkable. Troponin was less than 0.02. BNP was 12. D-dimer was mildly elevated at 0.67. A CT and CTA of the chest indicated atelectasis in the right middle lobe without evidence of PE. She was given a duoneb treatment, Zofran and morphine. Her vital signs were stable, SpO2 95%, afebrile. She was discharged home with the diagnosis of a viral syndrome. She later returned to the ER for complaints right lower back pain and shortness of breath. Stated that her shortness of breath had no improved and was actually worse. Her vital signs were normal, was not hypoxic. Physical exam was normal. UA was normal. She was discharged in stable condition with the diagnosis of right lower back pain without sciatica. Since her discharge from the ER, the patient is continuing to complain of shortness of breath. She complaints of constant fatigue, malaise. Does have complaints of hot and cold flashes. Has not taken her temperature at home. Shortness of breath usually occurs when exerting herself. Does complain of wheezing, which usually occurs at night. Does have pain between her shoulders when she deep breathes. Will intermittently have a dry cough, that she has had since she quit smoking. States that it is usually to clear her throat. Does have some shortness of breath at rest. Has been sleeping more than usual. Also has complaints of a headaches since ER visit. They are constant. Denies any visual changes. Headache did wake her up the other night. She does have a history of migraines. Does complain of photophobia. Has tried Imitrex, tylenol for this complaint, which did not help. Does have complaints of lower abdominal pain, states that this is not new, as she usually has a pseudo-like menstrual pain after her hysterectomy. Does complain of nausea and has had a few episodes of emesis. Also had an episode of diarrhea, decreased appetite. Continues to have complaints of swelling. Having a hard time with putting on her wedding ring. Feels as if her lower extremities are swelling. No chest pain. Does have complaints of heart burn. No radiating arm pain. No syncopal events. No eye, ear, nose or throat pain. Weight is stable. Of note is that her was diagnosed with COPD by Dr. Shaikh in March 2017. She is not on any daily inhalers. Has not had an albuterol inhaler prescription for an extended time period. She did call in to schedule an appointment for this complaint and was instructed to get a x-ray of the chest, which she completed. Results are as: Impression IMPRESSION: Findings as described above. Row Boss Hoeing: MATEO ? Transcribe Date/Time: Dec ?2:33P Dictated by : KADE ODOM MD This examination was interpreted and the report reviewed and electronically signed by: KADE ODOM MD on Dec ?2:34PM ?EST Results-Findings * * *Final Report* * * DATE OF EXAM: Dec ?2:26PM ? WOX ? 5291 ?- ?XR CHEST 2V FRONTAL/LAT ?/ PROCEDURE REASON: Shortness of breath ?? ? * * * * Physician Interpretation * * * * ?EXAMINATION: ?CHEST RADIOGRAPH (2 VIEW FRONTAL ANDamp; LATERAL) Clinical History: ?Shortness of breath MQ: ?XC2_4 Comparison: ?Chest x-ray on 03/08/2015 RESULT: Lines, tubes, and devices: ?None. Lungs and pleura: ?Small lung volume due to inadequate inspiration. ?A few bandlike opacities in the lower lungs, likely representing subsegmental atelectasis, slightly worsened compared to prior study. ?No large pleural effusions or pneumothorax. Cardiomediastinal silhouette: ?Stable cardiac silhouette and mediastinal contour. Other: ?None. Past medical history, appointments, medications, allergies reviewed. Previous Medical History PAST MEDICAL HISTORY Diagnosis Date - Abnormal glandular Papanicolaou smear of cervix Abn. Pap smear (cervix) - Acute myopericarditis 2011 cardiomyopathy - Dysthymic disorder Depression (non-psychotic) - Hypertension - Incidental lung nodule, ANDgt; 3mm and ANDlt; 8mm 03/24/2017 03/17/17: 7.5 mm nodule RLL - Migraine with aura and without status migrainosus, not intractable 01/09/2016 - Morbid obesity due to excess calories (HCC) 03/24/2017 - Protein S deficiency (HCC) - Pulmonary embolus (HCC) 2007 left lung, after delivery with cardiomyopathy - RLL pneumonia (HCC) 03/10/2017 - Unspecified asthma(493.90) - Urinary calculus, unspecified 2004 Renal stones Previous Surgical History PAST SURGICAL HISTORY Procedure Laterality Date - HYSTEROSCOPY WBX WWO D AND C ANDOR POLYPECTOMY 2013 - INT REPAIR SCALP,WILLARD,TRUNK 7.6-12.5CM 02/21/07 RIGHT - INT REPAIR SCALP,WILLARD,TRUNK 7.6-12.5CM 02/21/07 LEFT - LAP CHOLECYSTECT/CHOLANGIOGRAPHY 10-27-11 - LAPAROSCOPIC TUBAL LIGATION/RING/CLIP 04/03/2014 filshie clips - LAPAROSCOPY, SURGICAL, URETEROLITHO - PAST SURGICAL HISTORY OF 2007 heart cath at [facility] by Dr. Aburto - REM LESION TRUNK,ARM,LEG 0.6 -1.0CM 01/26/07 Exc. right axillary and right ant. thigh lesions - REM LESION TRUNK,ARM,LEG ANDgt; 4.0CM 02/21/07 RIGHT - REM LESION TRUNK,ARM,LEG ANDgt; 4.0CM 02/21/07 LEFT - THERMAL ENDOMETRIAL ABLATION 04/03/2014 thermachoice ablation Family History FAMILY HISTORY Problem Relation Age of Onset - Cancer Mother UTERUS - Diabetes Mother - Hypertension Mother - Diabetes Father - Heart Father - Hypertension Father - Developmental problem Maternal Aunt - Hypertension Maternal Grandmother - Colon Cancer Maternal Grandfather - Hypertension Maternal Grandfather - Diabetes Maternal Grandfather - Heart Maternal Grandfather - Diabetes Maternal Grandmother - Diabetes Paternal Grandmother - Diabetes Paternal Grandfather - Hearing Loss Paternal Grandfather - Hearing Loss Daughter - COPD Maternal Grandfather - Thyroid Mother - Heart Paternal Grandmother GA - Pancreatitis [Other] [OTHER] Mother Patient Allergies ALLERGIES Allergen Reactions - Penicillins Hives - Tramadol Vomiting Current Medications Current Outpatient Prescriptions on File Prior to Visit: LORazepam (ATIVAN) 0.5 mg tab Take 1 tablet by mouth twice daily as needed (anxiety). citalopram (CELEXA) 20 mg tablet Take 1.5 tablets by mouth once daily. promethazine (PHENERGAN) 12.5 mg tablet Take 1 tablet by mouth every 6 hours as needed. venlafaxine ER (EFFEXOR XR) 37.5 mg 24 hr capsule Take 1 capsule by mouth once daily. NIFEdipine ER (PROCARDIA XL) 30 mg 24 hr tablet Take 1 tablet by mouth once daily. omeprazole (PRILOSEC) 20 mg capsule Take 1 capsule by mouth daily before breakfast. 1/2 hr before meal. hydroCHLOROthiazide (HYDRODIURIL, ESIDRIX) 25 mg tablet Take 1 tablet by mouth once daily. metroNIDAZOLE (METROGEL VAGINAL) 0.75 % Vaginal Gel Twice weekly vaginally x 6 months after initial course of flagyl albuterol HFA (PROAIR HFA) 90 mcg/actuation inhaler Inhale 2 Puffs as instructed every 4 hours as needed. fluticasone (FLONASE) 50 mcg/actuation nasal spray Use 2 Sprays in each nostril once daily. SUMAtriptan (IMITREX) 50 mg tablet 50mg every 2 hrs as needed for migraine; max 4/day, 9/mo. No current facility-administered medications on file prior to visit. 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 Reviewed relevant PMHx, PSHx, Social Hx, current medications and allergies. EXAM: BP 112/78 Pulse 88 Temp 37.4 ?C (99.3 ?F) (Tympanic) Wt 116.1 kg (256 lb) LMP 10/13/2011 SpO2 97% BMI 43.94 kg/m2 General Appearance: Well appearing, alert, in no acute distress, well-hydrated, well nourished., Obese. Skin: Skin color, texture, turgor normal, no suspicious rashes or lesions. Head: Normocephalic, no masses, lesions, tenderness or abnormalities. Eyes: Anicteric sclera. Pupils are equally round and reactive to light. Extraocular movements are intact. Ears: External ears normal, canals clear. Nose/Sinuses: Nares normal, septum midline, mucosa normal, no drainage or sinus tenderness. Oropharynx: Lips, mucosa, and tongue normal, teeth and gums normal, oropharynx normal. Neck: Supple, no adenopathy; thyroid symmetric, normal size, no bruits. Lungs: Lungs clear to auscultation. No wheezing, rhonchi, rales. RML, LLL and RLL are diminished noticeably on exam Heart: RRR without murmur, gallop, or rubs. No ectopy. Abdomen: Normal abdominal exam, Abdomen soft, non-tender. Bowel sounds normal. No masses, organomegaly. Extremities: No deformities, edema. Musculoskeletal: No joint swelling, deformity, or tenderness, 5/5 strength of the upper and lower extremities. Peripheral Pulses: Normal, Pulses: radial=4/4, dorsalis pedis=4/4, posterior tibial=4/4. Neurologic: Gait normal. +2/4 patellar reflexes normal and symmetric. Sensation grossly intact. Lymph Nodes: No cervical lymphadenopathy and No supraclavicular lymphadenopathy. Health Maintenance List TETANUS due on 04/09/2015 MAMMOGRAM due on 08/21/2018 PAP EVERY 5 YEARS due on 09/04/2021 HPV EVERY 5 YEARS due on 09/04/2021 INFLUENZA Completed Data reviewed [facility] ER note, labs, CT, CTA , chest x-ray results reviewed. ASSESSMENT/PLAN: 1. Chronic obstructive pulmonary disease, unspecified COPD type (HCC) - ICD9: 496, ICD10: J44.9 (primary diagnosis) - Patient is stable. X-ray is without concerns, atelectasis only. - As evidence by March [address] Shaikh, who had diagnosed her with diffuse, irreversible lung disease consistent with COPD. - FLUTICASONE 100 MCG-SALMETEROL 50 MCG/DOSE BLISTR POWDR FOR INHALATION - ALBUTEROL SULFATE HFA 90 MCG/ACTUATION AEROSOL INHALER - PREDNISONE 20 MG TABLET - Advised ER this weekend if symptoms worsen. Patient verbalized understanding. 2. Migraine with aura and without status migrainosus, not intractable - ICD9: 346.00, ICD10: G43.109 - Continue with migraine treatments. 3. Hospital discharge follow-up - ICD9: V67.59, ICD10: Z09 - See above. Follow up in 1 week, sooner if problems arise. Referring Provider: SELF [[id number]] Allergies As of Date: 12/17/2017 Noted Allergy Reaction PENICILLINS 07/02/2005 4 - Hives TRAMADOL 01/30/2008 11 - Vomiting Date Reviewed: 12/17/2017 Reviewed by: Jason (Leonie) LEONIE Kang - Fully Assessed Reason for Visit: ER F/U [41] Cmt: hurts to breath - headache, Ibuprofen , no help - Reason For Visit History Recorded Primary Visit Diagnosis:Chronic obstructive pulmonary disease, unspecified COPD type (HCC) [J44.9] Other Visit Diagnoses:Migraine with aura and without status migrainosus, not intractable [G43.109] Hospital discharge follow-up [Z09] Order(s):fluticasone-salmeterol (ADVAIR DISKUS) 100-50 mcg/dose dsdvInhale 1 Puff as instructed twice daily. Rinse mouth out after use with water.Disp: 1 InhalerRfl: 1 albuterol HFA (PROAIR HFA) 90 mcg/actuation inhalerInhale 2 Puffs as instructed every 4 hours as needed.Disp: 1 InhalerRfl: 0 predniSONE (DELTASONE) 20 mg tabletTake 2 tablets by mouth once daily for 5 days. Take daily with food.Disp: 10 tabletRfl: 0 Prescriptions as of 12/17/2017 Sig: ALBUTEROL SULFATE HFA 90 MCG/* Inhale 2 Puffs as instructed * LORAZEPAM 0.5 MG TABLET Take 1 tablet by mouth twice * CITALOPRAM 20 MG TABLET Take 1.5 tablets by mouth onc* PROMETHAZINE 12.5 MG TABLET Take 1 tablet by mouth every * VENLAFAXINE ER 37.5 MG CAPSUL* Take 1 capsule by mouth once * NIFEDIPINE ER 30 MG TABLET,EX* Take 1 tablet by mouth once d* OMEPRAZOLE 20 MG CAPSULE,MIGUEL ANGEL* Take 1 capsule by mouth daily* HYDROCHLOROTHIAZIDE 25 MG TAB* Take 1 tablet by mouth once d* METRONIDAZOLE 0.75 % VAGINAL * Twice weekly vaginally x 6 mo* FLUTICASONE 50 MCG/ACTUATION * Use 2 Sprays in each nostril * SUMATRIPTAN 50 MG TABLET 50mg every 2 hrs as needed fo* FLUTICASONE 100 MCG-SALMETERO* Inhale 1 Puff as instructed t* PREDNISONE 20 MG TABLET Take 2 tablets by mouth once * Problem List As Of Date 12/17/2017 Noted Resolved Calculus of kidney [N20.0] INVALID FOR*03/28/2014 HIDRADENITIS [L73.2] INVALID FOR* Unspecified asthma(493.90) [J45.909] 03/28/2014 More... Hypopotassemia [E87.6] INVALID FOR*03/28/2014 Biliary dyskinesia [K82.8] INVALID FOR*03/28/2014 Acute myopericarditis [I30.9] INVALID FOR*03/28/2014 Migraine with aura and without status migrainos*INVALID FOR* Chronic pelvic pain in female [R10.2, G89.29] INVALID FOR* Acute myopericarditis [I30.9] INVALID FOR* Incidental lung nodule, > 3mm and < 8mm [R91.1] INVALID FOR* More... Hot flashes [R23.2] INVALID FOR* Morbid obesity due to excess calories (HCC) [E6*INVALID FOR* Prescriptions ordered this encounter Disp Refills Start End FLUTICASONE 100 MCG-SALMETEROL 50 MC* 1 In* 1 12/17/2017 Route: INHALATION Sig: Inhale 1 Puff as instructed twice daily. Rinse mouth out after use with water. ALBUTEROL SULFATE HFA 90 MCG/ACTUATI* 1 In* 0 12/17/2017 Route: INHALATION Sig: Inhale 2 Puffs as instructed every 4 hours as needed. PREDNISONE 20 MG TABLET 10 t* 0 12/17/2017 12/22/2017 Route: ORAL Sig: Take 2 tablets by mouth once daily for 5 days. Take daily with food. Medications Discontinued During This Encounter albuterol (PROVENTIL) 5 mg/mL nebu 1 mL 0 03/08/2015 12/17/2017 Class: In Office Route: INHALATION Sig: Inhale 0.5 mL as instructed every 4 hours as needed for up to 7 days. 1 DOSE NOW - BACK OFFICE. PLACE 0.5 ML PER DROPPER AND 2.5 ML OF NORMAL SALINE INTO RESERVOIR. Disc: Reason for discontinue is not on file. albuterol (PROVENTIL) 5 mg/mL nebu 0.5 * 0 02/28/2015 12/17/2017 Class: In Office Route: INHALATION Sig: Inhale 0.5 mL as instructed one time only for 1 dose. 1 DOSE NOW - BACK OFFICE. PLACE 0.5 ML PER DROPPER AND 2.5 ML OF NORMAL SALINE INTO RESERVOIR. Disc: Reason for discontinue is not on file. albuterol HFA (PROAIR HFA) 90 mcg/ac* 1 In* 0 09/28/2016 12/17/2017 Route: INHALATION Sig: Inhale 2 Puffs as instructed every 4 hours as needed. Disc: Reason for discontinue is not on file. Disposition: Return in about 1 week (around 12/24/2017) for SOB, COPD. Follow-up and Disposition History Recorded Encounter Status:Closed by JASON KANG CNP on 12/17/17 PROGRESS Observed: 12/17/2017 Status: COMPLETED Source: [place] 2:18 PM [facility] REPOSITORY O ID: [id number] Author: Allegra Robles Service: (none) Author Type: (none) Type: Progress Notes Filed: 12/17/2017 2:26 PM Note Text: Radiology Service Progress Note PATIENT NAME: Leslie De León DATE OF SERVICE: December 17, 2017 TIME: 2:18 PM PATIENT IDENTITY VERIFICATION COMPLETED USING TWO (2) METHODS: Patient confirmed name verbally and Date of . PATIENT GENDER DATA: Female. status: : No status: NO. PATIENT RELEVANT IMPLANT DATA REVIEWED: Not Applicable RADIOLOGY DEPARTMENT: General X-ray: Exam(s) Completed: Chest X-Ray PERIPHERAL IV DATA: Not applicable SIGNED BY: Allegra Robles December 17, 2017 2:18 PM EMERGENCY DEPARTMENT Observed: 12/16/2017 Status: F Source: [place] SUMMARY 12:04 AM [facility] REPOSITORY [facility] Medical Records Department [address] [place] [address] Emergency Department Summary 12/15/17 2358 MR#: [id number] Acct: [id number] Name: LESLIE DE LEÓN Rep #: [id number] : 1975 42 From: Rodriguez Siegel MD PCP: Sabrina Pena III, MD Status: REG ER - ER Visit Summary Date of Service: 12/15/17 Chief Complaint: Right lower back pain near posterior iliac spine History of Present Illness: The patient is a 42 F who was seen earlier today and had a significant workup to evaluate her constellation of symptoms which included shortness of breath. She states she is no better. She states she is worse and now has right lower back pain. She does have history of nephrolithiasis one year ago. She denies any history of trauma. She denies rash. She denies bowel or bladder dysfunction. She denies saddle paresthesia or anesthesia. She denies foot drop when she walks. Denies thigh muscle weakness when he was up or down steps. She denies fever, chills night sweats. Denies weight gain or weight loss. She denies any ocular, visual auditory symptoms. She does complain of palpitations. She also complains of continued shortness of breath. She denies any abdominal pain or symptoms. She denies dysuria, frequency, urgency or hematuria. She denies myalgias or arthralgias. She denies paresthesia or weakness. She denies any allergic type symptoms. There is a past medical history of cardiomyopathy, pericarditis, nephrolithiasis, GERD and depression. Her dictated note from visit earlier today was read. She had a significant workup with no determined etiology. The kidneys are visualized and there is no evidence of hydronephrosis. Physical Examination: Vital signs are normal. She is afebrile. She is not hypoxic. BMI is 43.6. HEENT exam is unremarkable. Insert cardiopulmonary exam abdomen is soft nontender. There is no CVA tenderness noted. There is no pain to palpation of the dorsal or lumbar spinous process. Straight leg test is negative. Crossover test is negative. Patella and ankle reflexes are 2+ and symmetric. There is no clonus or Babinski sign noted. Sensation is intact. Motor strength is 5/5 in all major muscle groups lower extremity. Test Results: UA is negative Emergency Department Course and Treatment: Since she now has new symptom of low back pain and his history of nephrolithiasis a urinalysis was obtained. Prior documentation was reviewed as well as tests that were ordered. Treatment Plan: Home-going instructions for muscle skeletal low back pain without sciatica Disposition: Discharged to home in stable condition Impression: 1. Right lower back pain without sciatica 2. Persistent shortness of breath of unknown etiology 3. History of cardiomyopathy This note was generated with Procuricsation software. It may contain incorrect words, spelling, and punctuation that were not noted in review of the chart prior to signing ED Disposition - Plan for ED Patient: Disposition: Home or Assisted Living Chief Complaint: General Illness Instructions: ED Neck Back Pain General Referrals: Sabrina Pena III, MD [Primary Care Provider] - 3-5 Days if not improving What to do if you have Problems For any increased pain, shortness of breath, bleeding, nausea or vomiting, chest pain, or any unexpected problems, contact your Primary Care Provider. Call [facility] ([phone]) or report to the closest Emergency Room. Call 911 if necessary. 12/16/17 0004 <Electronically signed by Rodriguez Siegel MD> Date Rodriguez Siegel MD Cosigner Signature (If Indicated): Date CC: Sabrina Pena III, MD URINALYSIS, COMPLETE Collected: 12/15/2017 Status: F Source: [place] 11:28 PM [facility] REPOSITORY Order Comment: How was Urine Obtained? CLEAN CATCH TYPE CODE TESTS RESULT OUT OF RANGE REFERENCE UNITS LAB L400.3000 Yellow COLOR Normal Yellow LAB L400.3050 Clear Normal CLARITY Clear LAB L400.3200 Normal mg/dl Normal GLUCOSE, UR Normal LAB L400.3300 Negative mg/dL Normal BILIRUBIN URINE Negative LAB L400.3400 Negative mg/dl Normal KETONE UR Negative LAB L400.3465 1.002-1.030 Normal SP.GR. DIPSTX 1.020 LAB L400.3550 5.0 - 8.0 pH UR Normal 6.0 LAB L400.3600 Negative mg/dl PROT Normal DIPSTX Negative LAB L400.3700 Normal mg/dl Normal UROBILI Normal LAB L400.3750 Negative Normal NITRITE UR Negative LAB L400.3780 Negative /ul Normal OCCULT BLOOD-UR Negative LAB L400.3800 Negative /ul LEUK Normal ESTERASE Negative LAB L400.4050 0-5 /hpf WBC 0 Normal SEEN LAB L400.4100 0-5 /hpf 0 Normal RBC-UA SEEN LAB L400.4150 5-10 /hpf SQUAM Normal EPI 0-5 SEEN LAB L400.4300 None Seen /hpf 0 Normal BACTERIA SEEN LAB L400.4350 <or=2+ /hpf 0 Normal MUCUS, URINE SEEN Performed By: #### L400.0001 #### [facility] [address] [place], [address] EMERGENCY DEPARTMENT Observed: 12/15/2017 Status: F Source: [place] SUMMARY 5:52 PM [facility] REPOSITORY [facility] Medical Records Department [address] [place] [address] Emergency Department Summary 12/15/17 1650 MR#: [id number] Acct: [id number] Name: LESLIE DE LEÓN Rep #: [id number] : 1975 42 From: Alessia Houston MD PCP: Sabrina Pena III, MD Status: DEP ER - ER Visit Summary Date of Service: 12/15/17 Chief Complaint: Shortness of breath History of Present Illness: The patient is a 42 F with generalized malaise over the weekend. Yesterday she noted dyspnea on exertion and some mild chest tightness. She feels that her hands are swollen and she is retaining fluid. She also has some low back pain. Patient has a history significant for cardiomyopathy, reflux disease, PE, factor V Leiden, and GA. Patient states she did have a cardiac cath but does not have any stents. She is not currently on anticoagulants. Physical Examination: Blood pressure is 134/81, temperature 98.5, heart rate 93, respiratory rate 16, pulse ox 95% on room air. Head neck examination is unremarkable. Heart is regular rate and rhythm. Lung sounds are clear. Abdomen is soft nontender. Lower external examination reveals no significant calf tenderness. Distal pulses are noted throughout. Test Results: Two-view chest x-ray reveals right basilar atelectasis. EKG is sinus at 84 with no sign of acute ischemia. CBC and chemistry studies are unremarkable. Urinalysis is normal. Troponin is less than 0.02. BNP is 12. D-dimer is mildly elevated at 0.67. CTA of the chest is obtained that shows atelectasis in the right middle lobe. There is no evidence of PE. Emergency Department Course and Treatment: Patient was given morphine and Zofran. She is also given a DuoNeb. Patient states that overall she still just feels blah. I believe her symptoms are secondary to a viral syndrome. I encouraged her to use Tylenol or ibuprofen. At this time her cardiac and pulmonary workup are negative and I do not believe she needs to be admitted for further evaluation this currently. Treatment Plan: [] Disposition: Discharge Impression: Viral syndrome This note was generated with Fittr dictation software. It may contain incorrect words, spelling, and punctuation that were not noted in review of the chart prior to signing ED Disposition - Plan for ED Patient: Disposition: Home or Assisted Living Chief Complaint: Shortness of Breath Instructions: ED Viral Syndrome Prescriptions: Ondansetron [Zofran Odt] 4 mg PO Q8H PRN PRN #10 tablet PRN Reason: Nausea Referrals: Sabrina Pena III, MD [Primary Care Provider] - 1-2 Weeks What to do if you have Problems For any increased pain, shortness of breath, bleeding, nausea or vomiting, chest pain, or any unexpected problems, contact your Primary Care Provider. Call [facility] ([phone]) or report to the closest Emergency Room. Call 911 if necessary. 12/15/171751 <Electronically signed by Alessia Houston MD> Date Alessia Houston MD Cosigner Signature (If Indicated): Date CC: Sabrina Pena III, MD DISCHARGE INSTRUCTION Observed: 12/15/2017 Status: F Source: [place] 5:01 PM [facility] REPOSITORY [facility] Medical Records Department [address] [place] [address] Discharge Instruction 12/15/17 1700 MR#: [id number] Acct: [id number] Name: LESLIE DE LEÓN Rep #: [id number] : 1975 42 From: Alessia Houston MD PCP: Sabrina Pena III, MD Status: REG ER ED Disposition - Plan for ED Patient: Disposition: Home or Assisted Living Chief Complaint: Shortness of Breath Instructions: ED Viral Syndrome Prescriptions: Ondansetron [Zofran Odt] 4 mg PO Q8H PRN PRN #10 tablet PRN Reason: Nausea Referrals: Sabrina Pena III, MD [Primary Care Provider] - 1-2 Weeks What to do if you have Problems For any increased pain, shortness of breath, bleeding, nausea or vomiting, chest pain, or any unexpected problems, contact your Primary Care Provider. Call [facility] ([phone]) or report to the closest Emergency Room. Call 911 if necessary. 12/15/17 1701 <Electronically signed by Alessia Houston MD> Date Alessia Houston MD Cosigner Signature (If Indicated): Date CC: Sabrina Pena III, MD DISCHARGE INSTRUCTION Observed: 12/15/2017 Status: F Source: [place] 4:52 PM [facility] Medical Records Department [address] [place] [id number] Discharge Instruction 12/15/17 165 MR#: [id number] Acct: [id number] Name: LESLIE DE LEÓN Rep #: [id number] : 1975 42 From: Alessia Houston MD PCP: Sabrina Pena III, MD Status: REG ER ED Disposition - Plan for ED Patient: Disposition: Home or Assisted Living Chief Complaint: Shortness of Breath Instructions: ED Viral Syndrome Referrals: Sabrina Pena III, MD [Primary Care Provider] - 1-2 Weeks What to do if you have Problems For any increased pain, shortness of breath, bleeding, nausea or vomiting, chest pain, or any unexpected problems, contact your Primary Care Provider. Call [facility] ([phone]) or report to the closest Emergency Room. Call 911 if necessary. 12/15/17 1652 <Electronically signed by Alessia Houston MD> Date Alessia Houston MD Cosigner Signature (If Indicated): Date CC: Sabrina Pena III, MD CTA CHEST W/WO Observed: 12/15/2017 Status: F Source: [place] CONTRAST 2:18 PM [facility] REPOSITORY [facility] Imaging Services [address] [place], [place] [address] [address] CTA Chest W/WO Contrast MR#: [id number] Acct: [id number] Name: LESLIE DE LEÓN Rep #: [id number] : 1975 F 42 From: Santhosh Morse MD PCP: Sabrina Pena III, MD Status: REG ER Study: CTA Chest W/WO Contrast Date of Exam: 12/15/17 Exam# [id number] Ordering Dr: Alessia Houston MD STUDY: CTA CHEST REASON FOR EXAM: Female, 42 years old. Shortness of breath. 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 RADIATION DOSAGE (If Supplied By Facility): CTDIvol = ( 15.06 ) mGy, DLP = ( 760.22 ) mGycm TECHNIQUE: The examination was performed with the intravenous administration of 100 ml of Isovue 370 contrast material. Post-processing of the angiographic images was performed, with multiplanar reformation and 3D reconstruction. Individualized dose optimization techniques were used for this CT. COMPARISON: None. FINDINGS: Normal enhancement of the main pulmonary artery and right and left pulmonary arteries. Normal enhancement of the bilateral peripheral pulmonary arteries. There is no demonstrated pulmonary embolism. Normal thoracic aorta and visualized great vessels. There is no demonstrated aortic dissection. Normal heart and pericardium. Normal mediastinum. Normal hilar regions. Normal visualized trachea and bronchi. The lungs are well expanded. Mild increased markings in the anterior aspect of the right middle lobe suggestive of a right middle lobe atelectasis. Normal pleura. Normal chest wall structures. Normal osseous structures. Normal visualized upper abdomen. CT/CTA Chest W/WO Contrast IMPRESSION: Mild increased markings in the anterior aspect of the right middle lobe as described suggesting atelectasis. No evidence of pulmonary emboli. Electronically Signed: Santhosh Morse MD at 15:33 EST Tel [phone], Service support , CC: Sabrina Pena III, MD; Alessia Houston MD Row Boss Hoeing: Signed URINALYSIS, COMPLETE Collected: 12/15/2017 Status: F Source: [place] 1:30 PM [facility] REPOSITORY Order Comment: How was Urine Obtained? CLEAN CATCH TYPE CODE TESTS RESULT OUT OF RANGE REFERENCE UNITS LAB L400.3000 Yellow COLOR Normal Yellow LAB L400.3050 Clear Normal CLARITY Clear LAB L400.3200 Normal mg/dl Normal GLUCOSE, UR Normal LAB L400.3300 Negative mg/dL Normal BILIRUBIN URINE Negative LAB L400.3400 Negative mg/dl Normal KETONE UR Negative LAB L400.3465 1.002-1.030 Normal SP.GR. DIPSTX 1.020 LAB L400.3550 5.0 - 8.0 pH UR Normal 5.0 LAB L400.3600 Negative mg/dl PROT Normal DIPSTX Negative LAB L400.3700 Normal mg/dl Normal UROBILI Normal LAB L400.3750 Negative Normal NITRITE UR Negative LAB L400.3780 Negative /ul Normal OCCULT BLOOD-UR Negative LAB L400.3800 Negative /ul LEUK Normal ESTERASE Negative LAB L400.4050 0-5 /hpf WBC 0 Normal SEEN LAB L400.4100 0-5 /hpf 0 Normal RBC-UA SEEN LAB L400.4150 5-10 /hpf SQUAM Normal EPI 0-5 SEEN LAB L400.4300 None Seen /hpf Normal BACTERIA RARE LAB L400.4350 <or=2+ /hpf 0 Normal MUCUS, URINE SEEN Performed By: #### L400.0001 #### [facility] [address] [place], [place], [id number] CBC W/DIFF, AUTOMATED Collected: 12/15/2017 Status: F Source: [place] 1:26 PM [facility] REPOSITORY TYPE CODE TESTS RESULT OUT OF RANGE REFERENCE UNITS LAB L100.1000 4.4-11.0 K/mm3 Normal WBC 6.4 LAB L100.1200 4.2-5.4 M/mm3 Normal RBC 4.26 LAB L100.1300 12.0-15.0 g/dl Normal HGB 13.2 LAB L100.1400 37-47 % Normal HCT 38.3 LAB L100.1500 81-99 fL Normal MCV 89.9 LAB L100.1600 27.0-32.0 pg Normal MCH 31.0 LAB L100.1700 32-36 g/gl Normal MCHC 34.5 LAB L100.1810 11.6-14.6 % Normal RDW CV 11.9 LAB L100.1820 35.1-43.9 fl Normal RDW SD 37.9 LAB L100.1900 150-450 K/mm3 Normal PLT 183 LAB L100.2000 6.2-12.0 fl Normal MPV 10.6 LAB L100.2100 47-70 % Normal NEUT% 62.7 LAB L100.2200 19-41 % Normal LY% 28.8 LAB L100.2300 0-10 % Normal MONO% 5.7 LAB L100.2400 0-5 % Normal EO% 2.5 LAB L100.2500 0-1 % Normal BASO% 0.3 LAB L100.2550 0.0-0.9 % Normal IM GRAN % 0.000 Result Comment: IG% - Immature Granulocytes (promyelocytes, myelocytes and metamyelocytes) > 1% indicates that a LEFT SHIFT is Present. LAB L100.2620 2.0-7.7 X10 3/uL Normal Absolute Neut 4.0 LAB L100.2720 0.83-4.51 X10 3/ul Normal Absolute Lymph 1.83 Performed By: #### L100.0100 #### [facility] [address] [place], [place], [address] BASIC METABOLIC Collected: 12/15/2017 Status: F Source: [place] PROFILE (BMP) 1:26 PM [facility] REPOSITORY Order Comment: 'TROP' Serial specimen #1, #2, #3, or #4: 1 TYPE CODE TESTS RESULT OUT OF RANGE REFERENCE UNITS LAB L501.0100 74-106 mg/dL High GLU 116 Result Comment: Fasting Glucose result from 100 to 125 mg/dL suggests IMPAIRED HOMEOSTASIS per A.D.A. criteria. Please note revised GLUCOSE reference range effective 2017. LAB L501.1000 7-18 mg/dL Normal BUN 14 LAB L501.1100 0.55-1.02 mg/dL Normal CREAT,SERUM 0.85 Result Comment: The validity of the calculated GFR AND GFRAA in patients over 70 years has not been determined. Clinical correlation is essential. LAB L501.1110 >60 mL/min Normal EST GFR 78 Result Comment: Non- GFR Calc LAB L501.1115 >60 mL/min Normal EST GFR - AA 95 Result Comment: GFR Calc LAB L501.1255 ml/min Normal Estimated CRCL 75.97 LAB L501.1300 10-20 RATIO Normal BUN/CRE 16.5 LAB L501.2200 8.5-10 mg/dL Normal .1 CA 8.7 LAB L501.5300 136-14 mmol/L Normal 5 NA 140 LAB L501.5600 3.5-5. mmol/L Normal 1 K 3.7 LAB L501.5900 98-107 mmol/L Normal CL 106 LAB L501.6100 21.0-3 mmol/L Normal 2.0 CO2 26.0 LAB L501.6200 5-15 Normal GAP 8 Performed By: #### L500.2500, L501.4010 #### [facility] [address] [place], [place], [address] TROPONIN-I Collected: 12/15/2017 Status: F Source: [place] 1:26 PM [facility] REPOSITORY Order Comment: 'TROP' Serial specimen #1, #2, #3, or #4: 1 TYPE CODE TESTS RESULT OUT OF RANGE REFERENCE UNITS LAB L501.4010 <0.06 ng/mL Normal < 0.02 TROPONIN-I Result Comment: TROPONIN-I EXPECTED VALUES <0.05 NEGATIVE 0.06 - 0.59 AT RISK OF GA > OR = 0.60 SUGGEST GA Performed By: #### L500.2500, L501.4010 #### [facility] [address] [place], [address] BNP,B-TYPE NATRIURETIC Collected: 12/15/2017 Status: F Source: [place] PEPTIDE 1:26 PM [facility] REPOSITORY TYPE CODE TESTS RESULT OUT OF RANGE REFERENCE UNITS LAB L503.6620 0-100 pg/mL Normal B-TYPE 12.4 CHRISTOPHER PEP Performed By: #### L503.6620 #### [facility] [address] [place], [address] D-DIMER QUANTITATIVE Collected: 12/15/2017 Status: F Source: [place] (DVT/PE) 1:26 PM [facility] REPOSITORY Order Comment: CRITICAL VALUE VERIFIED. CALLED TO JONNA 12/15/17 1416 [place] M[place]. RESULTS READ BACK BY JONNA . TYPE CODE TESTS RESULT OUT OF RANGE REFERENCE UNITS LAB L300.8000 0.27-0.49 FEU/ug/m High alert D-DIMER 0.67 QUANT Result Comment: D-Dimer ELEVATED (>0.49): Additional studies and clinical assessments are indicated to conclude diagnosis of: Deep Vein Thrombosis (DVT) or Pulmonary Embolism (PE) Performed By: #### L300.8000 #### [facility] [address] [place], [address] CHEST PA AND LATERAL Observed: 12/15/2017 Status: F Source: [place] 1:22 PM [facility] REPOSITORY [facility] Imaging Services [address] [place] [address] Chest PA and Lateral MR#: [id number] Acct: [id number] Name: LESLIE DE LEÓN Sushant Rep #: [id number] : 1975 F 42 From: Santhosh Morse MD PCP: Sabrina ePna III, MD Status: REG ER Study: Chest PA and Lateral Date of Exam: 12/15/17 Exam# [id number] Ordering Dr: Alessia Houston MD STUDY: X-RAY CHEST REASON FOR EXAM: Female, 42 years old. Chest pain. Shortness of breath. TECHNIQUE: PA and lateral views of the chest. COMPARISON: Comparison is made with prior study dated September 19, 2017. FINDINGS: EKG electrodes are seen. Stable elevation of the right hemidiaphragm. Mild increased markings in the right middle lobe suggestive of mild right basilar atelectasis. There is no demonstrated pleural abnormality. Normal size heart. Normal mediastinum and jessi. Normal visualized pulmonary arteries. Normal visualized aortic arch and descending thoracic aorta. Normal visualized thoracic spine. Normal visualized ribs, clavicles, and shoulders. There is no demonstrated abnormality of the visualized soft tissue structures of the upper abdomen. RAD/Chest PA and Lateral IMPRESSION: Increased linear markings in the right middle lobe suggestive of right basilar atelectasis. Electronically Signed: Santhosh Morse MD at 14:26 EST Tel [phone], Service support , CC: Sabrina Pena III, MD; Alessia Houston MD Row Boss Hoeing: Signed URGENT CARE VISIT Observed: 12/15/2017 Status: F Source: [place] REPORT 1:00 PM [facility] [address] [place] [address] OFFICE VISIT Date of Service: 12/15/17 MR#: [id number] Acct: [id number] Name: LESLIE DE LEÓN Rep #: [id number] : 1975 Provider: Alvarez NORRIS Age/Sex: 42/F Location: [facility] Status: Signed Intake Vital Signs12/15/17 Height 5 ft 4 in Intake Visit Reasons: Pneumonia Chief Complaint: Shortness of breath and left shoulder discomfort Is patient in pain?: No Allergies Penicillins Allergy (Verified 12/15/17 12:51) Rash tramadol Allergy (Verified 12/15/17 12:51) Rash Medications Hydrochlorothiazide [Hctz] 25 mg PO DAILY 12/30/15 [History Confirmed 12/15/17] Citalopram Hydrobromide [Celexa] 20 mg PO DAILY 03/17/17 [History Confirmed 12/15/17] Venlafaxine HCl [Effexor] 37.5 mg PO DAILY 07/04/17 [History Confirmed 12/15/17] omeprazole magnesium 2.5 mg oral suspension,delayed release 10 mg PO QDAY 12/15/17 [History Confirmed 12/15/17] PFSH Medical History Myocardial infarction (Acute) Breathing-related sleep disorder (Chronic) Nicotine dependence in remission (Chronic) Obesity (Chronic) Pulmonary nodule (Chronic) Surgical History Hx of right heart catheterization (Acute) H/O: hysterectomy (Resolved) Hx of cholecystectomy (Resolved) Family History Mother Diabetes Hypertension Cancer Uterine cancer Pancreatitis Father Diabetes Heart disease Hypertension Daughter Hearing loss Social History Smoking Status: Former smoker second hand exposure: No alcohol intake: current alcohol intake frequency: 0-2 drinks per day substance use type: does not use caffeine: Yes what type of physical activity do you participate in: none HPI HPI Chief Complaint: Shortness of breath and left shoulder discomfort Details: LESLIE DE LEÓN, is a 42 F who presents to the office today for 3 day history of waxing and waning shortness of breath and chest congestion (as patient describes) and intermittent left shoulder discomfort. Patient notes no complaints of fever, chills, sweats, cough, but admits to being shortness of breath with activity. She notes past medical history is significant for cardiomyopathy with GA and pulmonary embolism several years ago after giving to her daughter, without recurrent complaints of the same since. He notes no other complaints at this time. ROS Const Constitutional: No chills, fever(s), night sweats, body ache, abnormal sleep pattern, headache(s) or excessive sweating Eyes Eyes: No change in vision ENT ENT: No abnormal hearing, ear pain, ear discharge, ear pressure, hearing loss, headache(s), dizziness/vertigo or balance problems Resp Respiratory: Positive for chest congestion (As she describes but nondescriptive otherwise); no cough Cardio Cardiology: Positive for dyspnea on exertion; no excessive sweating, chest pain at rest, chest pain with exertion, shortness of breath, irregular heart rhythm, generalized swelling or leg pain with exertion Gastro GI: No abdominal pain, change in stool character or change in bowel habits Musc Musculoskeletal: No joint pain, back pain or limited range of motion Skin Skin: No change in hair or sores Neuro Neurology: No abnormal speech, abnormal movements, abnormal hearing or headache(s) Psych Psychiatric: No abnormal sleep pattern Endo Endocrine: No change in body appearance, cold intolerance, heat intolerance or excessive sweating Aller/Imm Allergy/Immunologic: No food intolerance Deric/Lymp Hematologic/Lymphatic: No easy bruising Exam Const General: cooperative, healthy appearing, no acute distress, comfortable Nutritional Appearance: average body habitus Orientation: alert, awake, oriented x3 HENMT Head: normal to inspection Ears: hearing grossly normal bilaterally, external ears normal, TM's normal bilaterally, EAC's normal Nose: external nose normal, nares normal, septum normal, no nasal discharge Face and sinus: normal facial exam, face symmetric Mouth: oral mucosae normal, lip normal, tongue normal Teeth and gingiva: dentition normal, gingiva normal Throat: posterior oropharynx normal, tonsils normal, uvula midline Eyes General: appearance normal, both eyes and all related structures Neck Neck: normal visual inspection, full ROM, no lymphadenopathy, no meningeal signs, supple Neck mass: No Lymphatic: no lymphadenopathy noted Chest Chest palpation AND inspection: normal inspection of the chest Resp Effort AND Inspection: normal respiratory effort, able to speak in complete sentences, symmetric chest movement, no cough Auscultation: Bilateral: Clear to Auscultation Cardio Palpation: normal PMI Rate: regular rate Rhythm: regular rhythm Heart Sounds: S1 normal, S2 normal, no gallops, no murmurs, no rubs Pulses: radial pulses present GI Inspection: normal to inspection Palpation: soft Skin General: no rashes or lesions noted Neuro General: alert, awake, oriented x3, gait normal Cognition: normal cognition Speech: speech normal Gait: normal gait Motor: muscle tone normal throughout Sensory Exam: no sensory deficits noted Extrem General: normal to inspection Psych Appearance: grossly normal Mental Status: mental status grossly normal Mood: congruent mood Affect: normal affect Speech and Movement: speech and movement normal Attitude: cooperative Thought Process: normal Thought Content: normal Judgment: judgment good Assessment AND Plan 1. Pneumonia J18.9 2. Chest pain R07.9 Plan Detail Other Medications Discontinued: Additional Comments Recommend patient be transferred to emergency room at this time for further evaluation; patient refused EMS transfer states she will take her [facility] at this time AGAINST MEDICAL ADVICE. Patient is aware of all the above. Report called emergency room at this time, given report to Dr. Pena. This note was generated with Procuricsation software. It may contain incorrect words, spelling, and punctuation that were not noted in checking the note before signing. Coding Level of Care Code Off vis,new,level 4 Diagnoses Pneumonia J18.9 Chest pain R07.9 12/15/17 1300 <Electronically signed by Alvarez NORRIS> Date Alvarez NORRIS Cosigner Signature: Date (if applicable) CC: CNPTOUTREACH Observed: 10/12/2017 Status: COMPLETED Source: [place] 12:00 AM [facility] REPOSITORY Patient Outreach (FAMPST) LESLIE DE LEÓN ([id number]) 1975 F Date Time Provider Department 10/12/17 SABRINA PENA III FAMPST During your visit today, we recorded the following information about you: Allergies As of Date: 10/12/2017 Noted Allergy Reaction PENICILLINS 07/02/2005 4 - Hives TRAMADOL 01/30/2008 11 - Vomiting Date Reviewed: 09/21/2017 Reviewed by: Josue Kohler LPN - Fully Assessed Visit Diagnosis:Medication management [Z79.899] Order(s):LIPID PANEL BASIC [SQLIPB] Order #: [id number] FUTURE Prescriptions as of 10/12/2017 Sig: LORAZEPAM 0.5 MG TABLET Take 1 tablet by mouth twice * CITALOPRAM 20 MG TABLET Take 1.5 tablets by mouth onc* PROMETHAZINE 12.5 MG TABLET Take 1 tablet by mouth every * VENLAFAXINE ER 37.5 MG CAPSUL* Take 1 capsule by mouth once * NIFEDIPINE ER 30 MG TABLET,EX* Take 1 tablet by mouth once d* OMEPRAZOLE 20 MG CAPSULE,MIGUEL ANGEL* Take 1 capsule by mouth daily* HYDROCHLOROTHIAZIDE 25 MG TAB* Take 1 tablet by mouth once d* METRONIDAZOLE 0.75 % VAGINAL * Twice weekly vaginally x 6 mo* ALBUTEROL SULFATE HFA 90 MCG/* Inhale 2 Puffs as instructed * FLUTICASONE 50 MCG/ACTUATION * Use 2 Sprays in each nostril * SUMATRIPTAN 50 MG TABLET 50mg every 2 hrs as needed fo* Problem List As Of Date 10/12/2017 Noted Resolved Calculus of kidney [N20.0] INVALID FOR*03/28/2014 HIDRADENITIS [L73.2] INVALID FOR* Unspecified asthma(493.90) [J45.909] 03/28/2014 More... Hypopotassemia [E87.6] INVALID FOR*03/28/2014 Biliary dyskinesia [K82.8] INVALID FOR*03/28/2014 Acute myopericarditis [I30.9] INVALID FOR*03/28/2014 Migraine with aura and without status migrainos*INVALID FOR* Chronic pelvic pain in female [R10.2, G89.29] INVALID FOR* Acute myopericarditis [I30.9] INVALID FOR* Incidental lung nodule, > 3mm and < 8mm [R91.1] INVALID FOR* More... Hot flashes [R23.2] INVALID FOR* Morbid obesity due to excess calories (HCC) [E6*INVALID FOR* Encounter Status:Closed by MENG LAMUSER on 12/05/17 ALLERGIES ALLERGIES DATE TYPE / CODE NAME / CODE REACTION SEVERITY SOURCE 09/14/2018 Drug Penicillins/S66547 Rash Unknown Jacqueline Allergy/416 0476(RXNORM) Community 552610([facility]) Repository 09/14/2018 Drug tramadol/[id number] Rash Unknown Jacqueline Allergy/416 0(RXNORM) Community 496697([facility] ED CT) Repository 01/30/2008 DRUG TRAMADOL Vomiting [facility] INGREDI/[address] [place] 997452(SNOM Repository ED CT) 07/02/2005 Drug PENICILLINS HIVES Med [facility] Class/97244 [address] [place] 1003(SNOMED Repository CT) Drug PENICILLINS Moderate [place] Allergy/416 (CLASS)/90897213(R ([facility] 176846(SNOM XNORM) Modifier) Hospital ED CT) (Qualifier Repository Value) Drug TRAMADOL/06203806( Moderate [place] Allergy/416 RXNORM) ([facility] 690730(SNOM Modifier) Hospital ED CT) (Qualifier Repository Value) ENCOUNTERS ENCOUNTERS ADMIT/DISCHARGE ACCOUNT ADMITTING ENCOUNTER LOCATION SOURCE NUMBER CLASS 10/04/2018/10/04/20 [id number] Ambulatory [address] Repository 09/22/2018/09/22/20 [id number] Ambulatory [address] Repository 09/22/2018/09/26/20 [id number] Ambulatory [address] Repository 09/14/2018/09/14/20 [id number] Emergency [address] ing:ED Repository 09/14/[id number] [facility] ing:LABSPEC Repository 09/14/2018/09/14/20 [id number] Ambulatory [address] Repository 09/14/2018/09/15/20 [id number] Ambulatory [address] Repository 08/31/2018/08/31/20 [id number] Ambulatory [address] Repository 08/31/2018/08/31/20 [id number] Ambulatory [address] Repository 08/29/2018/08/30/20 [id number] Ambulatory [address] Repository 08/04/2018/08/04/20 [id number] Ambulatory [address] ing:ENRoom: Repository AC18 08/04/2018/08/04/20 [id number] [place] [address] [place] Repository 07/27/2018/07/27/20 [id number] Ambulatory BMSBuilding:B Jacqueline 18 [place].[facility] Repository 07/18/2018/07/18/20 [id number] Emergency [address] ing:ED Repository 07/15/2018/07/18/20 [id number] Ambulatory [address] Repository 06/28/2018/06/28/20 [id number] Emergency [address] ing:ED Repository 05/28/2018/05/28/20 [id number] Emergency [address] ing:ED Repository 05/02/2018/05/03/20 [id number] Ambulatory [address] Repository 05/02/2018/05/04/20 [id number] Ambulatory [address] Repository 04/27/2018/04/27/[id number] Repository 03/22/2018/03/22/20 [id number] VIOLETA PHILLIPS Emergency Buildin[address] [place] [address] 18 DO oom: ERBed: [facility] Repository 03/18/2018/03/21/20 [id number] Ambulatory [address] Repository 02/09/[id number] [facility] ing:LAB Repository 01/27/2018/01/28/20 [id number] Ambulatory BMSBuilding:B Byron 18 [place].[facility] Repository 01/24/[id number] [facility] ing:US Repository 01/20/2018/01/21/20 [id number] Ambulatory [address] Repository 01/20/2018/01/22/20 [id number] Ambulatory [address] Repository 01/06/2018/01/08/20 [id number] Ambulatory [address] Repository 01/02/2018/01/03/[id number] IGNACIO HYLTON [facility] oom: [facility]Bed: [facility] Repository 12/28/2017/12/31/19 [id number] Ambulatory [address] Repository 12/17/2017/12/18/19 [id number] Ambulatory [address] Repository 12/17/2017/12/21/19 [id number] Ambulatory [address] Repository 12/15/2017/12/17/19 [id number] Emergency Byron Byron 18 [facility] ing:ED Repository 12/15/2017/12/15/19 [id number] Emergency Byron Jacqueline 18 [facility] ing:ED Repository 12/15/2017/12/15/19 [id number] Ambulatory BMSBuilding:B Jacqueline 18 MD.[facility] Repository PAYERS PAYERS ENCOUNTER GUARANTOR PAYER SUBSCRIBER SOURCE 09/14/2018 LESLIE Sushant [id number] Primary LESLIE L Jacqueline [address] Insurance:AETNAPolicy BECKLERDOB: [address], Number: [id number] Regional Medical Center [address]Lsi: 330 [id number] Repository [phone] () Date:8015-58-85ZZ [address] [place] [address]YV: 09/14/2018 Secondary NOT GIVENUNK Jacqueline Insurance:SELF PAY [facility] Number: Effective Repository Date:2018-09-14 09/14/2018 LESLIENhan DE LEÓN239 Primary LESLIE L Jacqueline [address] Insurance:AETNAPolicy BECKLERDOB: [address], Number: [id number] Regional Medical Center [address]Etf: (330 [id number] Repository [phone] () Date:3837-11-29[address], [place] [address]GQ: 09/14/2018 Secondary NOT GIVENUNK Jacqueline Insurance:SELF PAY [facility] Number: Effective Repository Date:2018-09-14 08/04/2018 LESLIE L [id number] Primary LESLIE L Jacqueline [address] Insurance:AETNAPolicy BECKLERDOB: [address], Number: [id number] Regional Medical Center [address]Ivf: (330 [id number] Repository [phone] (HP) Date:8789-13-79[address] [address]NX: 08/04/2018 Secondary NOT GIVENUNK Byron Insurance:SELF PAY [facility] Number: Effective Repository Date:2018-07-27 08/04/2018 LESLIE Sushant [id number] Primary LESLIE Sushant [address] Insurance:AETNAPolicy BECKLERDOB: [address], Number: [id number] Regional Medical Center [address]Ljn: (330) [id number] Repository [phone] (HP) Date:8499-45-64UC [address] [place] [address]TZ: 08/04/2018 Secondary NOT GIVENUNK Jacqueline Insurance:SELF PAY [facility] Number: Effective Repository Date:2018-08-04 07/27/2018 LESLIE L [id number] Primary LESLIE L Jacqueline [address] Insurance:AETNAPolicy BECKLERDOB: [address], Number: [id number] Regional Medical Center [address]Fly: (330) [id number] Repository [phone] (HP) Date:6002-02-76VQ [address] [place] [address]IM: 07/27/2018 Secondary NOT GIVENUNK Byron Insurance:SELF PAY [facility] Number: Effective Repository Date:2018-07-19 07/18/2018 LESLIE L [id number] Primary LESLIE L Jacqueline [address] Insurance:AETNAPolicy BECKLERDOB: [address], Number: [id number] Regional Medical Center [address]Pnj: (330) [id number] Repository [phone] (HP) Date:9033-51-41EZ [address] [address]EA: 07/18/2018 Secondary NOT GIVENUNK Byron Insurance:SELF PAY [facility] Number: Effective Repository Date:2018-07-18 06/28/2018 LESLIE DE [id number] Primary LESLIE [facility]ushant [facility] Insurance:AETNAPoljodyy BECKBELKISDOB: [address], Number: [id number] Regional Medical Center [address]Zhz: (330) [id number] Repository [phone] () Date:9311-31-64RM [address] [place] [address]OL: 06/28/2018 Secondary NOT GIVENUNK Jacqueline Insurance:SELF PAY [facility] Number: Effective Repository Date:2018-06-28 05/28/2018 LESLIE L [id number] Primary LESLIE L Jacqueline [place] Insurance:AETNAPolbogdan DE LEÓNDOB: [facility], Number: [id number] Regional Medical Center [address]Zlo: (330) [id number] Repository [phone] () Date:6103-39-89BB [address], [place] [address]HS: 05/28/2018 Secondary NOT GIVENUNK Jacqueline Insurance:SELF PAY [facility] Number: Effective Repository Date:2018-05-28 04/27/2018 LESLIE SARTHAKDOB: Primary LESLIE [place] Insurance:AETNA SARTHAKDOB: [facility] [id number] [place] [address] Repository [address]Pkp: (330) Number: WILEY [phone] () [id number] [facility] Date:Plan Name:[address] [address] 03/22/2018 LESLIE JACINTOBELKISDOB: Primary LESLIE [place] Insurance:AETNA BECKLERDOB: [facility] LiveAction [id number] Repository [address]Dzz: (330) Number: WILEY [phone] () [id number] [facility] Date:Plan Name:[place] [id number] 02/09/2018 LESLIE Sushant [id number] Primary LESLIE L Jacquelinegavin [place] Insurance:AEGiovanna HAYESB: [facility], Number: [id number] Regional Medical Center [address]Ohn: [id number] Repository [phone] Date:8889-70-99JR [address] () [address], [place] [address]BJ: 02/09/2018 Secondary NOT GIVENUNK Byron Insurance:SELF PAY [facility] Number: Effective Repository Date:2018-02-09 01/27/2018 LESLIENhan DE LEÓN8848 Primary LESLIE L Jacqueline [place] Insurance:AETCassius HAYESB: [facility], Number: [id number] Regional Medical Center [address]Vxg: [id number] Repository [phone] Date:3038-76-19DY [address] () [address], [place] [address]KM: 01/27/2018 Secondary NOT GIVENUNK Jacqueline Insurance:SELF PAY [facility] Number: Effective Repository Date:2018-01-27 01/24/2018 LESLIENhan DE LEÓN8848 Primary LESLIE L Jacqueline [place] Insurance:AEGiovanna HAYESB: [facility], Number: [id number] Regional Medical Center [address]Kab: [id number] Repository [phone] Date:7540-52-49BB [address] () [address], [place] [address]KB: 01/24/2018 Secondary NOT GIVENUNK [place] Insurance:SELF PAY [facility] Number: Effective Repository Date:2018-01-20 01/02/2018 LESLIE FREDDYB: Primary LESLIE L [place] Insurance:AELIDIA HAYESB: [facility] [id number] [address] Repository [address]Tds: (330) Number: WILEY [phone] () [id number] [facility] Date:Plan Name: [place] [id number] 12/15/2017 LESLIENhan DE LEÓN8848 Primary LESLIE L [place] Insurance:AETNAPolicy BECKLERDOB: [facility], Number: [id number] Regional Medical Center [address]Jkv: [id number] Repository [phone] Date:7445-87-08SZ [address]OX (HP) [address] [address]AB: 12/15/2017 Secondary NOT GIVENUNK Byron Insurance:SELF PAY [facility] Number: Effective Repository Date:2017-12-15 12/15/2017 LESLIENhan [id number] Primary [place]LIE L [place] [facility]:AETNAPolicy BECKLERDOB: [facility], Number: [id number] Regional Medical Center [address]Pob: [id number] Repository [phone] Date:3738-72-14YN BOX (HP) 034574NQTANESHA [place]ES [address]UG: 12/15/2017 Secondary NOT GIVENUNK Jacqueline Insurance:SELF PAY [facility] Number: Effective Repository Date:2017-12-15 12/15/2017 Agata [id number] Primary Agata Byron [place] Em Insurance:AETNAPolicy BecklerDOB: [facility], Number: [id number] Regional Medical Center [address]Lyq: (330) [id number] Repository [phone] (HP) Date:8432-11-24XU [address]YJTANESHA [address] [address]LY: 12/15/2017 Secondary NOT GIVENUNK [place] Insurance:SELF PAY [facility] Number: Effective Repository Date:2017-12-15
== END ==
PROVIDERS: Family Provider Family Medicine; PCP Family Medicine; Referring Provider Registered Nurse; Visit Provider Registered Nurse
DX: R05 Cough (principal); R06.02 Shortness of breath
CPT/HCPCS: 85379

== ENCOUNTER 2018-09-14 22:08 | Emergency (ER) | payer OTHER, SELFPAY ==
[2018-09-14 22:10] VITALS: BP 122/100; PULSE 104; RESP 18; TEMP 36.6; O2SAT 95; BMI 45.6
--- NOTE | 2018-09-14 22:38 | ED.DCSUM_ITS ---
- ER Visit Summary Date of Service: 09/14/18 Chief Complaint: [] Cough History of Present Illness: The patient is a 43 F [] patient had a cough for the last 4 weeks gradual onset intermittent. Current severity is mild. Nonproductive per patient. She started a Z-Jose Luis today she saw her family doctor and had a d-dimer that was negative. She took doxycycline back in July. She had a negative chest x-ray July 18. She increased her Advair today. She does not smoke cigarettes. She is on max therapy for reflux. She has been using Delsym NyQuil and she was on Mucinex in the past. She is really requesting something for her cough Physical Examination: [] Vital signs reviewed General: Well-nourished well-developed Head: Normocephalic atraumatic Eyes: Pupils equal round and reactive to light extraocular movements intact ENT: TMs clear no hemotympanum no trauma Neck: Nontender full range of motion Cardiovascular: Regular rate rhythm no murmurs normal S1-S2 Respiratory: No distress clear to auscultation bilaterally chest nontender Abdomen: Soft nontender nondistended normal bowel sounds no masses Back: Nontender no CVA tenderness Extremities: Nontender active range of motion ?4 extremities no trauma Skin: Normal color no trauma Neuro alert oriented cranial nerves II through XII intact normal strength sensation reflexes Test Results: [] Emergency Department Course and Treatment: [] Plan the patient appears to have a chronic cough but appears well. Her lungs are clear. I do not think this is infectious. However she was just started on a Z-Jose Luis. She will continue this. Instructed to use Mucinex DM and liquid honey and Sudafed. She will follow-up as an outpatient. I do not feel she needs labs or imaging. Patient agrees. Treatment Plan: [] Disposition: [] Impression: [] Cough This note was generated with [employer] dictation software. It may contain incorrect words, spelling, and punctuation that were not noted in review of the chart prior to signing ED Disposition - Plan for ED Patient: Chief Complaint: Cough Referrals: Horace Paniagua III, MD [Primary Care Provider] -
--- NOTE | 2018-09-14 22:38 | ED.DEP ---
ED Disposition - Plan for ED Patient: Disposition: Home or Assisted Living Chief Complaint: Cough Instructions: ED Cough Chronic Cause Unkn Referrals: Horace Paniagua III, MD [Primary Care Provider] -
--- OUTSIDE RECORDS SUMMARY | 2018-11-10 05:14 | XMS RPT_ITS ---
:1975 Author Organization [place] Support Name Relationship Address Phone SARTHAKAGATA Unavailable [address] + [place] [address] NATIONAL RED CROSS Unavailable [address] + [place] [address] AURY BYRD Unavailable [address] + [place] [address] AGATA DE LEÓN Unavailable [address] + [place] [address] NATIONAL RED [place]OSS Unavailable [address] + [place] [address] AURY BYRD Unavailable [address] + [place] [address] AGATA DE LEÓN Unavailable [address] + [place] [phone] NATIONAL RED CROSS Unavailable [address] + [place] [address] AURY BYRD Unavailable [address] + [place] [address] AGATA DE LEÓN Unavailable [address] + [place] [address] NATIONAL RED CROSS Unavailable [address] + [place] [address] AURY BYRD Unavailable [address] + [place] [address] AGATA DE LEÓN Unavailable [address] + [place] [phone] [place] [address] RED CROSS Unavailable [address] + [place] [address] AURY BYRD Unavailable [address] + [place] [address] AGATA DE LEÓN Unavailable [address] + [place], [place] [phone] [place] [address] RED CROSS Unavailable [address] + [place] [address] AURY BYRD Unavailable [address] + [place] [address] AGATA DE LEÓN Unavailable [address] + [place] [phone] [place] [address] RED CROSS Unavailable [address] + [place] [address] AURY BYRD Unavailable [address] + [place] [address] AGATA DE LEÓN Unavailable [address] + [place] [phone] [place] [address] RED CROSS Unavailable [address] + [place] [address] AURY BYRD Unavailable [address] + [place] [address] NOT GIVEN Unavailable Unavailable Unavailable [place], [place] AGATA DE LEÓN Unavailable Unavailable Unavailable NILDA BYRD Unavailable Unavailable + AGATA DE LEÓN Unavailable [address] [phone] CROSS Unavailable [address] + [place] [address] AURY BYRD Unavailable [address] + [place] [address] AGATA DE LEÓN Unavailable [address] [phone] [place] [phone] [place] [address] CROSS Unavailable [address] + [place] [address] AURY BYRD Unavailable [address] + [place] [address] AGATA DE LEÓN Unavailable [address] [phone] CROSS Unavailable [address] + [place] [address] AURY BYRD Unavailable [address] + [place] [address] AGATA DE LEÓN Unavailable Unavailable Unavailable ILENEBLADENILDA Kemp Unavailable Unavailable + AGATA DE LEÓN Unavailable [address] + [place], [place] [phone] [place] [address] Un[address] + [place] [address] SARTHAKViridianaAURY Unavailable [address] + [place] [address] AGATA DE LEÓN Unavailable [address] + [place], [place] [phone] [place] [address] Un[address] + [place] [address] SARTHKAViridiana AURY Unavailable [address] + [place] [address] AGATA DE LEÓN Unavailable [address] + [place], [place] [address] [place] [address] Un[address] + [place] [address] SARTHAKNILDA KempARA Unavailable [address] + [place] [address] Care Team Providers Name Role Phone DR [...] Unavailable PROVIDER, UNKNOWN Consulting Unavailable JASON KANG (CERAMIC CHEMIST) Referring Unavailable JASON KANG (CERAMIC CHEMIST) Attending Unavailable YOSEF MONTANO (TEAROOM HOSTESS) Attending Unavailable HOUSTONJODY MCFADDEN (TEAROOM HOSTESS) Referring Unavailable YOSEF MONTANO (TEAROOM HOSTESS) Attending Unavailable PODLOGARJUDITH (CERAMIC CHEMIST) Attending Unavailable CECELIAALANA Peñaloza (CERAMIC CHEMIST) Attending Unavailable JUDI MCGARRY (PA) Attending Unavailable JOSE PARK Referring Unavailable HAMARVA CEJA (CERAMIC CHEMIST) Attending Unavailable MARVA WOODWARD (CERAMIC CHEMIST) Referring Unavailable MINDY ELIZALDE (TEAROOM HOSTESS) Attending Unavailable CEBUL III, SABRINA A Referring Unavailable CEBUL III, SABRINA A Referring Unavailable CEBUL III, SABRINA A Referring Unavailable Alvarez Khalil Attending Unavailable Cebul III, Sabrina Referring Unavailable Cebul III, Sabrina Primary Care Unavailable Cebul III, Sabrina Primary Care Unavailable Alessia Houston Attending Unavailable Cebul III, Sabrina Primary Care Unavailable Rodriguez Siegel Attending Unavailable Gris Griffin Attending Unavailable JacksonvilleGris Referring Unavailable Cebul III, Sabrina Primary Care [...] Attending Unavailable Marva Woodward Attending Unavailable Marva Woodawrd Referring Unavailable Cebul III, Sabrina Primary Care Unavailable Cebul III, Sabrina Primary Care Unavailable Gil Ruano Attending Unavailable PROBLEMS PROBLEMS DATE TYPE CONDITION / CODE ATTENDING STATUS SOURCE 10/04/2018 Active Hyperglycemia, NA Active [facility] unspecified / [facility] [place] R73.9(ICD-10) Repository 09/22/2018 Active Abnormal weight NA Active [facility] gain / [facility] [place] R63.5(ICD-10) Repository 09/22/2018 Active Gastro-esophageal THORPEMINDY Active [facility] reflux disease with (TEAROOM HOSTESS) [facility] [place] esophagitis / Repository K21.0(ICD-10) 09/22/2018 Active Other gastritis THORPE, MINDY Active [facility] without bleeding / (TEAROOM HOSTESS) [facility] [place] K29.60(ICD-10) Repository 09/14/2018 Unknown R05 - Cough / HaMarva ceja Active [facility] R05(ICD-10) [facility] Repository 09/14/2018 Unknown R06.02 - Shortness HaagenMarva Active [facility] of breath / Community R06.02(ICD-10) Hospital Repository 08/31/2018 Active Cough / R05(ICD-10) NA Active [facility] [place] Repository 08/18/2018 Unknown R13.10 - Dysphagia, CebuDemarco reyes Active [facility] unspecified / Community R13.10(ICD-10) Hospital Repository 08/18/2018 Unknown K21.0 - CeDemarco orr Active [facility] reflux disease with Hospital esophagitis / Repository K21.0(ICD-10) 08/18/2018 Unknown K44.9 - CebulDemarco Active [facility] hernia without Hospital obstruction or Repository gangrene / K44.9(ICD-10) 08/18/2018 Unknown K22.8 - Other CebulDemarco Active [facility] specified diseases Community of esophagus / Hospital K22.8(ICD-10) Repository 05/02/2018 Active Unknown / CECELIAALANA JJ Active [facility] UNK(Unknown) (CERAMIC CHEMIST) [facility] [place] Repository 01/27/2018 Unknown O92.6 - Gaby, Gris Active [facility] Galactorrhea / Community O92.6(ICD-10) Hospital Repository 01/27/2018 Unknown R63.5 - Abnormal [place], Gris Active [facility] weight gain / Community R63.5(ICD-10) Hospital Repository 01/20/2018 Active Unspecified injury NA Active [facility] of right foot, [facility] [place] initial encounter / Repository S99.921A(ICD-10) 12/17/2017 Active Shortness of breath NA Active [facility] / R06.02(ICD-10) [facility] [place] Repository PROCEDURES PROCEDURES No Procedure Records FoundRESULTS RESULTS COMP METABOLIC PANEL Collected: 10/04/2018 Status: F Source: [place] 1:07 PM [facility] REPOSITORY TYPE CODE TESTS RESULT OUT [...] has been calibrated to be traceable to IDNM. An eGFR <60 mL/min/1.73m2 for >3 months is consistent with chronic kidney disease. Refer to KDOQI guidelines for clinical interpretation. In patients with unstable renal function, e.g. those with acute kidney injury, the eGFR may not accurately reflect actual GFR. COMP METABOLIC PANEL Collected: 09/22/2018 Status: F Source: [place] 9:41 AM [facility] REPOSITORY TYPE CODE TESTS RESULT OUT OF REFERENCE UNITS RANGE LAB TP 6.3-8.0 g/dL Protein, Total 7.1 LAB ALB 3.9-4.9 g/dL Albumin 3.9 LAB CA 8.5-10.2 mg/dL Calcium, Total 9.0 LAB TBIL 0.2-1.3 mg/dL Bilirubin, Total 0.2 LAB ALKP 34-123 U/L Alkaline Phosphatase 55 LAB AST 13-35 U/L AST 20 LAB GLU 74-99 mg/dL Glucose High 113 Result Comment: The [place] Diabetes Association (ADA) provides guidance for cutoff [...] Standards of Medical Care in Diabetes 2016, [place] [employer] Association. Diabetes Care. 2016.39(Suppl 1). LAB [...] GFR. Performed By: #### CMP, TSH #### [facility] [address] [place], [place] [address] TSH Collected: 09/22/2018 Status: F Source: [place] 9:41 AM [facility] REPOSITORY TYPE CODE TESTS RESULT [...] Clinical Practice Guideline. J Clin Endocrinol Metab, 2012:97:0582-4115. 2. Anthony LEWIS. Overview of thyroid disease in . UpToDate. 2016. Accessed on April 03, 2016. Performed By: #### CMP, TSH #### [facility] [address], [place] [address] CNOV Observed: 09/22/2018 Status: COMPLETED Source: [place] 8:20 AM [facility] REPOSITORY [facility] LESLIE DE LEÓN ([id number]) 1975 F Date Time Provider Department 09/22/18 8:20 AM MINDY ELIZALDE (KATIE) [facility] During your visit today, we recorded the following information about you: Pulse Blood pressure Weight Height 96/minute 127/80 120 kg 1.626 m Mindy Elizalde RN FUR MIXER.[facility] 09/22/2018 9:36 AM Signed Leslie De León [...] pain that is located in the umbilicus. MACHINE SHOP WORKER: Negative for abnormal vaginal bleeding, abnormal vaginal [...] SURGICAL HISTORY OF 2007 heart cath at [facility] by Dr. Aburto - REM LESION TRUNK,ARM,LEG [...] - Thyroid Mother - Heart Paternal Grandmother [place] - other (Pancreatitis [Other]) Mother Current Outpatient [...] Disp: 60 tablet Rfl: 1 rizatriptan (MAXALT SERVICING REP) 10 mg disintegrating tablet Take 1 tablet [...] I have reviewed the information that the DECORATING MACHINE OPERATOR entered for this encounter. I spent 30 minutes in the visit, with greater than 50% of the total jtod-kc-fwqw time of the visit in counseling and [...] for us to get the results. Call [phone], and ask to speak to a nurse in GI, if you have any questions or concerns in the mean time. [email or web address] Referring Provider: SABRINA PENA III [[id number]] Allergies As of Date: 09/22/2018 Noted Allergy Reaction PENICILLINS 07/02/2005 4 - Hives TRAMADOL 01/30/2008 11 - Vomiting Date Reviewed: 09/22/2018 Reviewed by: Wendy De Oliveira DECORATING MACHINE OPERATOR - Fully Assessed Reason for Visit: GERD [548] Primary Visit Diagnosis:Other gastritis without bleeding [K29.60] Other Visit Diagnoses:Gastroesophageal reflux disease with esophagitis [K21.0] Dyspepsia [R10.13] Weight gain [R63.5] Order(s):COMP METABOLIC PANEL [SQCMP] Order #: [id number] FUTURE TSH BLD [SQTSH] Order #: [id number] FUTURE NM GASTRIC EMPTYING SOLID [4231327] Order #: [id number] FUTURE ranitidine (ZANTAC) 150 mg tabletTake 2 [...] for us to get the results. Call [phone], and ask to speak to a nurse [...] HISTORY PHYSICAL Observed: 09/21/2018 Status: COMPLETED Source: [place] 7:29 PM [facility] REPOSITORY HNO ID: [id number] Author: Mindy (Katie) Fide Service: (none) Author Type: Nurse Practitioner Type: HANDP Filed: 09/22/2018 9:36 AM Note Text: Leslei De León a 43 year old female [...] pain that is located in the umbilicus. 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 SHOP WORKER: Negative for abnormal vaginal bleeding, abnormal vaginal [...] Laterality Date - COLON[facility]COP W/ [facility] - EGD W/O OR W/BRUSH/WASH 08/04/2018 small hiatal hernia - HYSTEROSCOPY WBX WWO D AND C ANDOR POLYPECTOMY 2013 - INT REPAIR SCALP,WILLARD,TRUNK 7.6-12.5CM 02/21/07 RIGHT - INT REPAIR SCALP,WILLARD,TRUNK 7.6-12.5CM 02/21/07 LEFT - LAP CHOLECYSTECT/CHOLANGIOGRAPHY 10-27-11 - LAPAROSCOPIC TUBAL LIGATION/RING/CLIP 04/03/2014 filshie clips - LAPAROSCOPY, SURGICAL, URETEROLITHO - PAST SURGICAL HISTORY OF 2007 heart cath at [facility] by Dr. Aburto - REM LESION TRUNK,ARM,LEG [...] - Thyroid Mother - Heart Paternal Grandmother [place] - other (Pancreatitis [Other]) Mother Current Outpatient [...] Disp: 60 tablet Rfl: 1 rizatriptan (MAXALT SERVICING REP) 10 mg disintegrating tablet Take 1 tablet [...] I have reviewed the information that the DECORATING MACHINE OPERATOR entered for this encounter. I spent 30 minutes in the visit, with greater than 50% of the total edtu-vk-plgx time of the visit in counseling and coordination of care. Mindy Elizalde RN FUR MIXER.[facility] EMERGENCY DEPARTMENT Observed: 09/14/2018 Status: F Source: [place] SUMMARY 11:02 PM [facility] REPOSITORY [facility] Medical Records Department [address] [place] [address] Emergency Department Summary 09/14/18 2237 MR#: [id number] Acct: [id number] Name: LESLIE DE LEÓN Rep #: [id number] : 1975 43 From: Gil Ruano MD [...] [] Cough This note was generated with Whistle Groupation software. It may contain incorrect words, spelling, [...] your Primary Care Provider. Call [facility] ([phone]) or report to the closest Emergency Room. Call 911 if necessary. 09/14/182301 <Electronically signed by Gil Ruano MD> Date Gil Ruano MD Cosigner Signature (If Indicated): Date CC: Sabrina Pena III, MD DISCHARGE INSTRUCTION Observed: 09/14/2018 Status: F Source: [facility] 11:02 PM [facility] REPOSITORY [facility] Medical Records Department [address] [place] [address] Discharge Instruction 09/14/182237 MR#: [id number] Acct: [id number] Name: LESLIE DE LEÓN Rep #: [id number] : 1975 43 From: Gil Ruano MD [...] your Primary Care Provider. Call [facility] ([phone]) or report to the closest Emergency Room. Call 911 if necessary. 09/14/182301 <Electronically signed by Gil Ruano MD> Date Gil Ruano MD Cosigner Signature (If Indicated): Date CC: Sabrina Pena III, MD D-DIMER QUANTITATIVE Collected: 09/14/2018 Status: F Source: [facility] (DVT/PE) 3:56 PM [facility] REPOSITORY TYPE CODE TESTS RESULT OUT OF RANGE REFERENCE UNITS LAB L300.8000 0.27-0.49 FEU/ug/m Low D-DIMER < 0.27 QUANT Result Comment: NORMAL D-Dimer level (<0.50) indicates no DVT or PE. NORMAL D-Dimer level (<0.50) indicates no DVT or PE. Performed By: #### L300.8000 #### [facility] [place], [address] D DIMER Collected: 09/14/2018 Status: F Source: [place] 3:22 PM [facility] REPOSITORY TYPE CODE TESTS RESULT OUT OF REFERENCE UNITS RANGE LAB DDMER <500 ng/mL FEU Test D sent to [facility]. Result Comment: Account Credited ANJU ALCARAZ Observed: 09/14/2018 Status: COMPLETED Source: [place] 2:40 PM [facility] REPOSITORY Office Visit ([facility]) LESLIE DE LEÓN ([id number]) 1975 F Date Time Provider Department 09/14/18 2:40 PM MARVA WOODWARD ([facility]) [facility] During your visit today, we recorded [...] Disp: 60 tablet Rfl: 1 rizatriptan (MAXALT SERVICING REP) 10 mg disintegrating tablet Take 1 tablet [...] Date Reviewed: 09/14/2018 Reviewed by: Laila Morris Cable Tower Operator - Fully Assessed Reason for Visit: URI [115] Cmt: X 1 month Primary Visit Diagnosis:Chronic obstructive pulmonary disease, unspecified COPD type (HCC) [J44.9] Other Visit Diagnoses:Cough [R05] SOB (shortness of breath) [R06.02] Order(s):D-DIMER [SQDDMER] Order #: [id number] FUTURE predniSONE (DELTASONE) 10 mg tabletTake 4 [...] 09/14/18 PROGRESS Observed: 09/14/2018 Status: COMPLETED Source: [place] 2:34 PM [facility] REPOSITORY HNO ID: [id number] Author: Marva Park) Crissy Service: (none) Author [...] Disp: 60 tablet Rfl: 1 rizatriptan (MAXALT SERVICING REP) 10 mg disintegrating tablet Take 1 tablet [...] APRN.LEONIE PEREZ Observed: 09/14/2018 Status: COMPLETED Source: [place] 12:00 AM [facility] REPOSITORY [facility] LESLIE DE LEÓN ([id number]) 1975 F Date Time Provider Department 09/14/18 [facility] WOODWARD (LEONIE) [facility] During your visit today, we recorded the following information about you: Marva Woodward APRN.CNP 09/14/2018 4:32 PM Addendum Phone call to [facility] and received negative d - dimer results -- < 0.27 ( 0.27-0.49). Phone call to patient and she is aware. Encouraged to call if no improvement/worsening. Pt agreeable to plan. Marva Woodward APRN.CNP Allergies As of Date: 09/14/2018 Noted Allergy Reaction PENICILLINS 07/02/2005 4 - Hives TRAMADOL 01/30/2008 11 - Vomiting Date Reviewed: 09/14/2018 Reviewed by: Laila Morris Cable Tower Operator - Fully Assessed Reason for Visit: Results [...] [E6*INVALID FOR* Encounter Status:Closed by MARVA WOODWARD CERAMIC CHEMIST on 09/14/18 XR CHEST 2V FRONTAL/LAT Observed: 08/31/2018 Status: F Source: [place] 11:06 AM [facility] REPOSITORY * * *Final Report* * [...] Other: . IMPRESSION: No acute radiographic abnormality. Hydraulic Lift Driver: MATEO Transcribe Date/Time: Aug 31 2018 1:12P Dictated by : EUGENE DENTON MD This examination was interpreted and the report reviewed and electronically signed by: EUGENE DENTON MD on Aug 31 2018 1:13PM EST [id number] Observed: 08/31/2018 Status: COMPLETED Source: [place] 10:53 AM [facility] REPOSITORY HNO ID: [id number] Author: Fatemeh Shelton (Rt) Alana Kwon Service: (none) Author Type: Expressive Therapist Type: Progress Notes Filed: 08/31/2018 11:06 AM [...] AM PROGRESS Observed: 08/31/2018 Status: COMPLETED Source: [place] 10:40 AM [facility] REPOSITORY HNO ID: [id number] Author: Jose Park Service: (none) Author Type: [...] tablets by mouth twice daily. rizatriptan (MAXALT SERVICING REP) 10 mg disintegrating tablet Take 1 tablet [...] 08/31/2018 Status: COMPLETED Source: [place] 10:30 AM [facility] REPOSITORY Office Visit ([facility]) SARTHAKLESLIE ([id number]) 1975 F Date Time Provider Department 08/31/18 [...] tablets by mouth twice daily. rizatriptan (MAXALT SERVICING REP) 10 mg disintegrating tablet Take 1 tablet [...] - Vomiting Date Reviewed: 08/31/2018 Reviewed by: Droa Ochoa LPN - Fully Assessed Reason for Visit: cough and congestion [Other] Cmt: x 1.5 weeks-was just seen here and given medication but she is not getting any better Primary Visit Diagnosis:SOB (shortness of breath) [R06.02] Other Visit Diagnoses:Cough [R05] History of pulmonary embolism [Z86.711] Order(s):XR CHEST 2V FRONTAL/LAT [0226200] Order #: [id number] FUTURE Prescriptions as of 08/31/2018 Sig: DOXYCYCLINE [...] 08/31/18 PROGRESS Observed: 08/29/2018 Status: COMPLETED Source: [place] 1:55 PM [facility] REPOSITORY HNO ID: [id number] Author: Taylor Harrell Service: (none) Author Type: Physician Jewel Flat Surfacer Type: Progress Notes Filed: 08/29/2018 2:25 PM [...] tablets by mouth twice daily. 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 [employer] Social History Main Topics Smoking status: [...] REPORT - Observed: 08/04/2018 Status: F Source: [facility] 1:14 PM [facility] REPOSITORY [facility] Medical Records Department [address] [place] [address] Operative Report - Endoscopy MR#: [id number] Acct: [id number] Name: LESLIE DE LEÓN Rep #: [id number] : 1975 43 From: Demarco Pena MD PCP: Sabrina Pena III, MD Status: REG [facility] Patient Name: Leslie De León Procedure Date: [...] MD Date Dictated: 08/04/18 1251 Date Transcribed: Hydraulic Lift Driver: MARCY Signed OPERATIVE REPORT - Observed: 08/04/2018 Status: F Source: [facility] 1:11 PM [facility] REPOSITORY [facility] Medical Records Department [address] [place] [address] Operative Report - Endoscopy MR#: [id number] Acct: [id number] Name: LESLIE DE LEÓN Rep #: [id number] : 1975 43 From: Demarco Pena MD PCP: Sabrina Pena III, MD Status: REG [facility] Patient Name: Leslie De León Procedure Date: [...] present medications. Procedure Code(s): --- Professional --- 36650, Esophagogastroduodenoscopy, flexible, transoral; with biopsy, single or multiple Diagnosis Code(s): --- Professional --- K21.0, Gastro-esophageal reflux disease with esophagitis K44.9, Diaphragmatic hernia without obstruction or gangrene K22.8, Other specified diseases of esophagus K31.89, Other diseases of stomach and duodenum R13.10, Dysphagia, unspecified CPT copyright 2017 [place] [employer]. All rights reserved. The codes documented in this report are preliminary and upon reed dipper review may be revised to meet current compliance requirements. Demarco Pena MD 08/04/2018 1:10:44 PM This report has been signed electronically. Number of Addenda: 0 Note Initiated On: 08/04/2018 12:27 PM 08/04/18 1310 Date Demarco Pena MD Cosigner Signature: Date (if indicated) CC: Sabrina Pena III, MD; Demarco Pena MD Date Dictated: 08/04/18 1227 Date Transcribed: Hydraulic Lift Driver: MARCY Signed GASTRIC BIOPSY Observed: 08/04/2018 Status: F Source: [place] 12:00 AM [facility] REPOSITORY Patient: LESLIE DE LEÓN : 1975 (43/F) Acct Num: [id number] Phys: Siva ROCHA,Demarco Unit Num: [id number] Loc: EN Specimen: [id number] Received: 08/04/18 - 1443 Spec Type: Gastric Bx TISSUES 1 TISSUES: A. Gastric mucous membrane B. Esophageal mucous membrane C. Esophageal mucous membrane D. COLON BIOPSY E. Rectum, NOS COMMENT A. The results of immunohistochemistry for Helicobacter pylori will be reported separately ([id number]). B. Alcian blue/PAS stain with matched control [...] one cassette. / SJ:tory 08/04/18 TC:3 CPT: 78906 x5, 62005 HEADER OPERATION: Colonoscopy, EGD ([facility]) PRE-OP DIAGNOSIS: Gastroesophageal reflux, diarrhea, periumbilical abdominal [...] on file> Performed By: #### PGASB #### [facility] [place], [address] IMMUNOHISTOCHEMISTRY Observed: 08/04/2018 Status: F Source: [place] 12:00 AM [facility] REPOSITORY Patient: LESLIE DE LEÓN : 1975 (43/F) Acct Num: [id number] Phys: Siva ROCHA,Demarco Unit Num: [id number] Loc: EN Specimen: [id number] Received: 08/04/18 1525 Spec Type: IMMUNO TISSUES 1 TISSUES: A. Stomach, NOS SPECIMEN INFORMATION: Tissue Source: A - Antrum biopsy Clinical Info: Gastroesophageal reflux, diarrhea, periumbilical abdominal pain Specimen Number: [id number] CPT code: 93447 METHODOLOGY: Deparaffinized sections of prefer/formalin-fixed tissue or [...] developed and their performance characteristics determined by [facility]. They may not have been cleared or approved by the U.S. Food and Drug Administration. The FDA has determined that such clearance or approval is not necessary. INTERPRETATION: A. Antrum, biopsy: Negative for Helicobacter pylori organisms. SJ:tory 08/05/18 PHYSICIAN AND INSTITUTION [place] [address] Signed Abel Stanley 08/05/18 <signature on file> Performed By: #### PIMM #### [facility] [address] [place] [address], [address] SURGERY VISIT REPORT Observed: 07/27/2018 Status: F [facility] 11:39 AM [facility] REPOSIT[facility] [address] [place] [address] [address] [place] [address] OFFICE VISIT Date of Service: 07/27/18 MR#: [id number] Acct: [id number] Name: SARTHAKLESLIE L Rep #: [id number] : 1975 Provider: Demarco Pena MD Age/Sex: 43/F Location: [facility] Status: Signed Intake Vital Signs07/27/18 Height 5 ft 4 in 07/27/18 Weight: 265 lb 8 oz Intake Visit Reasons: C-SCOPE/CHANGE IN BOWEL HABITS Chief Complaint: Pelvic Pain Diesel Retrofit Designer Required: No Is patient in pain?: Yes [...] history: Rebecca Snow Patient works at the [employer] HPI HPI: LESLIE DE LEÓN, [...] 30 the patient was seen at the [facility] emergency room because of vertigo. She then [...] LEAD ELECTROCARDIOGRAM Observed: 07/25/2018 Status: F [facility]: [facility] 3:39 PM [facility] REPOS[facility] Cardiovascular Services [address] [place] [address] 12 Lead EKG 07/18/182050 MR#: [id number] Acct: [id number] Name: LESLIE DE LEÓN Rep #: [id number] : 1975 43 From: Jerry Bennett MD [...] ECG Confirmed by JERRY BENNETT MD ([id number]), metropolitan editor GERSON CRUZ ([id number]) on 07/25/2018 3:39:07 PM Referred By: DESIRE Confirmed By:JERRY BENNETT MD 07/25/18 1539 Date Jerry Bennett MD CC: ED PHYSICIAN PROVIDER; Sabrina Pena III, MD; Alessia Houston MD Signed EMERGENCY DEPARTMENT Observed: 07/19/2018 Status: F Source: [place] SUMMARY 1:34 AM [facility] REPOS[facility] Medical Records Department [address] [place] [address] Emergency Department Summary 07/18/18 2309 MR#: [id number] Acct: [id number] Name: LESLIE DE LEÓN Rep #: [id number] : 1975 43 From: Alessia Houston MD [...] re's disease This note was generated with Univision dictation software. It may contain incorrect words, [...] your Primary Care Provider. Call [facility] ([phone]) or report to the closest Emergency Room. Call 911 if necessary. 07/19/18 0134 <Electronically signed by Alessia Houston MD> Date Alessia Houston MD Cosigner Signature (If Indicated): Date CC: Sabrina Pena III, MD DISCHARGE INSTRUCTION Observed: 07/18/2018 Status: F Source: [place] 11:18 PM [facility] REPOS[facility] Medical Records Department [address] [address] Discharge Instruction 07/18/187 MR#: [id number] Acct: [id number] Name: LESLIE DE LEÓN Rep #: [id number] : 1975 43 From: Alessia Houston MD [...] your Primary Care Provider. Call [facility] ([phone]) or report to the closest Emergency Room. Call 911 if necessary. 07/18/182317 <Electronically signed by Alessia Houston MD> Date Alessia Houston MD Cosigner Signature (If Indicated): Date CC: Sabrina Pena III, MD BRAIN/HEAD WITHOUT Observed: 07/18/2018 Status: F Source: [place] CONTRAST 9:42 PM [facility] REPOSIT[facility] Imaging Services [address] [place] [address] Brain/Head without Contrast MR#: [id number] Acct: [id number] Name: LESLIE DE LEÓN Rep #: [id number] : 1975 F 43 From: Camryn Grey MD PCP: Sabrina Pena III, MD Status: REG ER Study: Brain/Head without Contrast Date of Exam: 07/18/18 Exam# [id number] Ordering Dr: Alessia Houston MD STUDY: CT [...] Sabrina Pena III, MD; Alessia Houston MD Hydraulic Lift Driver: Signed CBC W/DIFF, AUTOMATED Collected: 07/18/2018 Status: F Source: [place] 8:40 PM [facility] REPOS[facility] TYPE CODE TESTS RESULT OUT OF [...] Lymph 2.02 Performed By: #### L100.0100 #### [facility] [address] [place] [address], [address] PROTHROMBIN TIME W/INR Collected: 07/18/2018 Status: F Source: [facility] 8:40 PM [facility] REPOS[facility] TYPE CODE TESTS RESULT OUT OF RANGE REFERENCE UNITS LAB L300.4150 11.7-14.9 SECONDS Low PROTIME 11.4 LAB L300.4200 Normal INR 0.8 Performed By: #### L300.3900, L300.4310 #### [facility] [address] [place], [address] PARTIAL THROMBOPLAST Collected: 07/18/2018 Status: F Source: [facility] TIME 8:40 PM [facility] REPOS[facility] TYPE CODE TESTS RESULT OUT OF REFERENCE UNITS RANGE LAB L300.4310 24.1-36.2 Seconds Low PTT 22.5 Performed By: #### L300.3900, L300.4310 #### [facility] [address] [place], [address] BASIC METABOLIC Collected: 07/18/2018 Status: F Source: [place] PROFILE (BMP) 8:40 PM [facility] REPOS[facility] TYPE CODE TESTS RESULT OUT OF [...] 7 GAP Performed By: #### L500.2500 #### [facility] [address] [place], [place], [address] CHEST PA AND LATERAL Observed: 07/18/2018 Status: F Source: [place] 8:32 PM [facility] REPOS[facility] Imaging Services [address] [place] [address] Chest PA and Lateral MR#: [id number] Acct: [id number] Name: LESLIE DE LEÓN Rep #: [id number] : 1975 F 43 From: Camryn Grey MD PCP: Sabrina Pena III, MD Status: REG ER Study: Chest PA and Lateral Date of Exam: 07/18/18 Exam# [id number] Ordering Dr: Provider,Ed P. STUDY: X-RAY CHEST [...] ED PHYSICIAN PROVIDER; Sabrina Pena III, MD Hydraulic Lift Driver: Signed PROGRESS Observed: 07/15/2018 Status: COMPLETED Source: [place] [facility] 9:41 AM [facility] REPOSITORY O ID: [id number] Author: Kashif Mcgarry Service: (none) Author Type: Physician Jewel Flat Surfacer Type: Progress Notes Filed: 07/15/2018 10:12 AM [...] SURGICAL HISTORY OF 2007 heart cath at [facility] by Dr. Aburto - REM LESION TRUNK,ARM,LEG [...] - Thyroid Mother - Heart Paternal Grandmother [place] - other (Pancreatitis [Other]) Mother Patient Allergies ALLERGIES Allergen Reactions - Penicillins Hives - Tramadol Vomiting Current Medications Current Outpatient Prescriptions on File Prior to Visit: venlafaxine ER (EFFEXOR XR) 37.5 mg 24 hr capsule Take 1 capsule by mouth once daily. topiramate (TOPAMAX) 25 mg tablet Take 2 tablets by mouth twice daily. 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 Aburto - REM LESION TRUNK,ARM,LEG [...] - Thyroid Mother - Heart Paternal Grandmother [place] - other (Pancreatitis [Other]) Mother Patient Allergies ALLERGIES Allergen Reactions - Penicillins Hives - Tramadol Vomiting Current Medications Current Outpatient Prescriptions on File Prior to Visit: venlafaxine ER (EFFEXOR XR) 37.5 mg 24 hr capsule Take 1 capsule by mouth once daily. topiramate (TOPAMAX) 25 mg tablet Take 2 tablets by mouth twice daily. 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 [employer] Social History Main Topics Smoking status: [...] Vomiting Date Reviewed: 07/15/2018 Reviewed by: Selena ([facility]) DOMONIQUE Hendricks - Fully Assessed Reason for Visit: Stomach issues [Other] Primary Visit Diagnosis:Gastritis without bleeding, unspecified chronicity, unspecified gastritis type [K29.70] Other Visit Diagnoses:GERD without esophagitis [K21.9] BPPV (benign paroxysmal positional vertigo), unspecified laterality [H81.10] Order(s):CONSULT TO GASTROENTEROLOGY [9010] Order #: [id number]: 1 CONSULT TO PHYSICAL THERAPY [9032] Order #: [id number]: 1 ranitidine (ZANTAC) 150 mg tabletTake 1 [...] EMERGENCY DEPARTMENT Observed: 06/28/2018 Status: F [facility]: [facility] SUMMARY 9:24 PM [facility] REPOSIT[facility] Medical Records Department [address] [place] [address] Emergency Department Summary 06/28/18 191 MR#: [id number] Acct: [id number] Name: LESLIE DE LEÓN Rep #: [id number] : 1975 43 From: Guanakito Quesada MD [...] GERD, vertigo This note was generated with Whistle Groupation software. It may contain incorrect words, spelling, [...] your Primary Care Provider. Call [facility] ([phone]) or report to the closest Emergency Room. Call 911 if necessary. 06/28/182123 <Electronically signed by Guanakito Quesada MD> Date Guanakito Quesada MD Cosigner Signature (If Indicated): Date CC: Sabrina Pena III, MD DISCHARGE INSTRUCTION Observed: 06/28/2018 Status: F Source: [facility] 9:24 PM [facility] REPOS[facility] Medical Records Department [address] [place] [address] Discharge Instruction 06/28/182121 MR#: [id number] Acct: [id number] Name: LESLIE DE LEÓN Sushant Rep #: [id number] : 1975 43 From: Guanakito Quesada MD [...] your Primary Care Provider. Call [facility] ([phone]) or report to the closest Emergency Room. Call 911 if necessary. 06/28/182123 <Electronically signed by Guanakito Quesada MD> Date Guanakito Quesada MD Cosigner Signature (If Indicated): Date CC: Sabrina Pena III, MD CBC W/DIFF, AUTOMATED Collected: 06/28/2018 Status: F Source: [facility] 8:15 PM [facility] REPOSIT[facility] TYPE CODE TESTS RESULT OUT OF [...] Lymph 2.10 Performed By: #### L100.0100 #### [facility] [address] [place], [address] COMPREHENSIVE METABOLIC Collected: 06/28/2018 Status: F Source: [facility] 8:15 PM [facility] REPOSIT[facility] TYPE CODE TESTS RESULT OUT OF [...] 7 Performed By: #### L500.4050, L501.2450 #### [facility] [address] [place], [address] LIPASE Collected: 06/28/2018 Status: F Source: [facility] 8:15 PM [facility] REPOSIT[facility] TYPE CODE TESTS RESULT OUT OF RANGE REFERENCE UNITS LAB L501.2450 73-393 U/L Normal LIPASE 323 Performed By: #### L500.4050, L501.2450 #### [facility] [address] [place], [address] DISCHARGE INSTRUCTION Observed: 05/28/2018 Status: F Source: [facility] 1:51 PM [facility] REPOSIT[facility] Medical Records Department [address] [place] [address] Discharge Instruction 05/28/18 1350 MR#: [id number] Acct: [id number] Name: LESLIE DE LEÓN Rep #: [id number] : 1975 43 From: Guanakito Quesada MD [...] your Primary Care Provider. Call [facility] ([phone]) or report to the closest Emergency Room. Call 911 if necessary. 05/28/18 1351 <Electronically signed by Guanakito Quesada MD> Date Guanakito Quesada MD Cosigner Signature (If Indicated): Date CC: Sabrina Pena III, MD EMERGENCY DEPARTMENT Observed: 05/28/2018 Status: F Source: [facility] SUMMARY 1:50 PM [facility] REPOSITORY [facility] Medical Records Department [address] [place] [address] Emergency Department Summary 05/28/18 1348 MR#: [id number] Acct: [id number] Name: LESLIE DE LEÓN Rep #: [id number] : 1975 43 From: Guanakito Quesada MD [...] Cervical radiculopathy This note was generated with Whistle Groupation software. It may contain incorrect words, spelling, [...] problems, contact your Primary Care Provider. Call [facility] ([phone]) or report to the closest Emergency Room. Call 911 if necessary. 05/28/18 1350 <Electronically signed by Guanakito Quesada MD> Date Guanakito Quesada MD Cosigner Signature (If Indicated): Date CC: Sabrina Pena III, MD WOUND Observed: 05/02/2018 Status: F Source: [place] CULTURE/STAIN 3:41 PM [facility] REPOSITORY Sp. Request/Comment: - Swab [...] molecular methods. Performed By: #### WCUL #### [facility] [address] [place], [place] [address] LISSA Observed: 05/02/2018 Status: COMPLETED Source: [place] 3:00 PM [facility] REPOSITORY Office Visit (WOOB) LESLIE DE LEÓN ([id number]) 1975 F Date Time Provider Department 05/02/18 [...] SURGICAL HISTORY OF 2007 heart cath at [facility] by Dr. 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 rizatriptan (MAXALT SERVICING REP) 10 mg disintegrating tablet Take 1 tablet [...] external genitalia normal, normal Bartholin's glands, urethra, El Refugio's glands, no cervical lesions, physiologic discharge present, [...] symptoms get worst or PRN Alana Rai, FUR MIXER.CERAMIC CHEMIST Referring Provider: SELF [200] Allergies As of [...] CULTURE AND GRAM STAIN [SQWCUL] Order #: [id number] Prescriptions as of 05/02/2018 Sig: VENLAFAXINE ER 37.5 MG CAPSUL* Take 1 capsule by mouth once * TOPIRAMATE 25 MG TABLET Take 2 tablets by mouth twice* RIZATRIPTAN 10 MG DISINTEGRAT* Take 1 tablet by mouth as nee* KETOROLAC 10 MG TABLET Take 1 tablet by mouth every * OMEPRAZOLE 20 MG CAPSULE,MIGUEL ANGLE* Take 1 capsule by mouth daily* HYDROCHLOROTHIAZIDE [...] 05/02/18 PROGRESS Observed: 05/02/2018 Status: COMPLETED Source: [place] 2:56 PM [facility] REPOSITORY O ID: [id number] Author: Alana Park) Cecelia Service: (none) Author [...] SURGICAL HISTORY OF 2007 heart cath at [facility] by Dr. 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 rizatriptan (MAXALT SERVICING REP) 10 mg disintegrating tablet Take 1 tablet [...] external genitalia normal, normal Bartholin's glands, urethra, El Refugio's glands, no cervical lesions, physiologic discharge present, [...] APRN.LEONIE PROGRESS Observed: 05/02/2018 Status: COMPLETED Source: [place] 2:28 PM [facility] REPOSITORY HNO ID: [id number] Author: Judith (Leonie) Podlogar Service: (none) Author Type: Nurse Practitioner Type: Progress Notes Filed: 05/03/2018 7:27 AM Note Text: 05/02/2018 Patient presents with: Blister: vaginsal cyst or blister , cramping ,keeping her up at night. SUBJECTIVE: This is a 42 year old that is here today for Above Complaints. [facility] Given prescription [...] (no units) Date Value 05/02/2018 neg Specific [place], Ur (no units) Date Value 05/02/2018 1.025 [...] after delivery with cardiomyopathy - RLL pneumonia ([facility]) 03/10/2017 - Unspecified asthma(493.90) - Urinary calculus, unspecified 2004 Renal stones ALLERGIES Penicillins; Tramadol MEDICATIONS Current Outpatient Prescriptions: venlafaxine ER (EFFEXOR XR) 37.5 mg 24 hr capsule Take 1 capsule by mouth once daily. topiramate (TOPAMAX) 25 mg tablet Take 2 tablets by mouth twice daily. 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 Patient advised if symptoms do not improve or if symptoms worsen sooner, to contact their primary care physician. Potential red flag symptoms discussed with the patient. Reviewed appropriate action plan to take if red flag symptoms occur. Patient agreeable to treatment plan. EMILIANAOV Observed: 05/02/2018 Status: COMPLETED Source: [place] 2:20 PM [facility] REPOSITORY [facility] SARTHAKLESLIE ([id number]) 1975 F Date Time Provider Department 05/02/18 2:20 PM PODLOGJUDITH TOTH (CERAMIC CHEMIST) [facility] During your visit today, we recorded the [...] (no units) Date Value 05/02/2018 neg Specific [place], Ur (no units) Date Value 05/02/2018 1.025 [...] tablets by mouth twice daily. 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 [...] Vomiting Date Reviewed: 05/02/2018 Reviewed by: Alana ([facility]) Cecelia - Fully Assessed Reason for Visit: Blister [1962] Cmt: vaginsal cyst or blister , cramping ,keeping her up at night. Primary Visit Diagnosis:Labial cyst [N90.7] Other Visit Diagnosis:Dysuria [R30.0] Order(s):UA DIP B/O [7099538] Order #: [id number] Prescriptions as of 05/02/2018 Sig: VENLAFAXINE ER [...] Source: [facility] CULTURE URINE 7:51 PM [facility] REPOSITORY CULTURE URINE _URINE CULTURE_ M I C R O B I O L O G Y R E P O R T FINAL Antimicrobial Susceptibility and Organism Identification Report Specimen Number : [id number] Requested : 04/27/18 Specimen Source : URINE Collected : 04/27/18 19:51 [place] : OUTPATIENT Received : 04/27/18 19:51 Requesting Physician : PAPI Patient/Specimen Tests and Comments Specimen Comments FINAL REPORT: NO GROWTH AT 48 HOURS Tech : Source : URINE ID # : [id number] FINAL Report Date : / / : Collected : 04/27/18 19:51 04/29/18.1553.URIAH. 04/28/18.1349.WKK. 04/29/18.1553.KLS.COMPLETE Performed By: #### [id number] #### [facility],[address] [place] [address] EMERGENCY REPORT Observed: 03/23/2018 Status: F Source: [place] [facility] 7:35 PM [facility] EMERGENCY ROOM REPORT NAME ACCOUNT SEX AGE ADMIT DISCHARGE PT MED. RECORD# NUMBER DATE DATE TYPE LESLIE DE LEÓN [id number] F 42 03/22/18 03/22/18 3 [id number] ROOM: ER DATE OF : 1975 DICTATING PHYSICIAN: Sanjiv Raymond CHIEF COMPLAINT/HISTORY OF PRESENT ILLNESS: Patient [...] is slow and gait and station intact. Arufhz-fa-zdef intact. Reflexes intact to the lower extremities. [...] Sanjiv Raymond DO 03/22/18 22:07 JOB #: [id number] Transcribed By: carson 03/23/18 06:32 Electronically signed by: GAGANDEEP Raymond D.O. 03/23/18 19:33 Page 2 of 2 SARTHAK LESLIE Emergency Room Report CT SINUSES W/O Observed: 03/22/2018 Status: F [facility] [place] [address] Patient: LESLIE DE LEÓN Phone#: : 1975 Age: 42 Gender: F Pt. Type: ER Account: [id number] [facility] Ordering: VIOLETA PHILLIPS Exam Date: 03/22/2018/19:22 Family Phys: SABRINA PENA Charge Code: [id number] Physician: Amelia Order #: [id number] DLP Dose#: PROCEDURE: CT SINUSES WITHOUT CONTRAST [...] 42 Gender: F Pt. Type: ER Account: [id number] Location: 052 Ordering: VIOLETA PHILLIPS Exam Date: 03/22/2018/19:22 Family Phys: SABRINA PENA Charge Code: [id number] Physician: Amelia Order #: [id number] DLP Dose#: Approved by: Dee Delaney MD on 03/23/2018 at 9:42 CT BRAIN W/O CONTRAST Observed: 03/22/2018 Status: F Source: [facility] 7:27 PM [place] [address] Patient: LESLIE DE LEÓN Phone#: : 1975 Age: 42 Gender: F Pt. Type: ER Account: [id number] Location: 052 Ordering: VIOLETA PHILLIPS Exam Date: 03/22/2018/19:22 Family Phys: SABRINA PENA Charge Code: [id number] Physician: Amelia Order #: [id number] DLP Dose#: PROCEDURE: CT BRAIN WITHOUT CONTRAST [...] 42 Gender: F Pt. Type: ER Account: [id number] [facility] [facility] Ordering: VIOLETA PHILLIPS Exam Date: 03/22/2018/19:22 Family Phys: SABRINA PENA Charge Code: [id number] Physician: Amelia Order #: [id number] DLP Dose#: Approved by: Dee Delaney MD on 03/23/2018 at 9:37 PROGRESS Observed: 03/18/2018 Status: COMPLETED Source: [place] 8:14 AM [facility] REPOSITORY HNO ID: [id number] Author: Yosef Red (Katie) Dusty Service: (none) [...] SURGICAL HISTORY OF 2007 heart cath at [facility] by Dr. 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 [employer] Social History Main Topics Smoking status: Former [...] TOPIRAMATE 25 MG TABLET Yosef Montano, MSN FUR MIXER.CERAMIC CHEMIST CNOV Observed: 03/18/2018 Status: COMPLETED Source: [place] 8:00 AM [facility] REPOSITORY [facility] LESLIE DE LEÓN ([id number]) 1975 F Date Time Provider Department 03/18/18 8:00 AM YOSEF MONTANO (TEAROOM HOSTESS) MAHAMED During your visit today, we recorded the following information about you: Temperature Pulse Respiration Blood pressure 97.8 degrees 80/minute 18/minute 120/80 Weight 113.9 kg Yosef Montano, MSN FUR MIXER.CERAMIC CHEMIST 03/18/2018 8:43 AM Signed Chief Complaint Patient [...] SURGICAL HISTORY OF 2007 heart cath at [facility] by Dr. 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 Topamax 25 [...] STIM HORMONE Collected: 02/09/2018 Status: F Source: [facility] ([facility]) 2:43 PM [facility] REPOSITORY TYPE CODE TESTS RESULT OUT OF RANGE REFERENCE UNITS LAB L501.9520 0.358-3.74 uIU/mL Normal TSH 1.08 Performed By: #### L501.9520, L3100.5420 #### [facility] [address] [place], [address] PROLACTIN Collected: 02/09/2018 Status: F Source: [place] 2:43 PM [facility] REPOSITORY TYPE CODE TESTS RESULT OUT OF RANGE REFERENCE UNITS LAB L3100.5420 ng/mL Normal PROLACTIN 10.3 Result Comment: NORMAL REFERENCE RANGES FEMALE NON- 2.2 - 30.3 ng/mL 8.1 - 347.6 ng/mL POST-MENOPAUSAL 0.7 - 31.5 ng/mL MALE 2.5 - 17.4 ng/mL NEW TEST METHOD AND REFERENCE RANGES MARCH 07, 2012 Performed By: #### L501.9520, L3100.5420 #### [facility] [facility] [address] [place], [address] AUTOMATION CLERK OFFICE VISIT Observed: 01/27/2018 Status: F Source: JACQU[facility]INE REPORT 5:07 PM [facility] REPOSITORY [facility] [address] [place] [address] OFFICE VISIT Date of Service: 01/27/18 MR#: [id number] Acct: [id number] Name: LESLIE DE LEÓN Rep #: [id number] : 1975 Provider: KATIE Griffin Age/Sex: 42/F Location: [facility] Status: Signed Intake Vital Signs01/27/18 Height 5 ft 4 in 01/27/18 Weight: 255 lb 8 oz 01/27/18 Body Mass Index (BMI) 43.8 01/27/18 Blood Pressure 122/79 Intake Visit Reasons: ovary pain Chief Complaint: Pelvic Pain Diesel Retrofit Designer Required: No Is patient in pain?: Yes [...] social history: Rebecca Snow Patient works at [employer]in ovary pain: Details: LESLIE DE LEÓN is [...] (NON ) Observed: 01/24/2018 Status: F Source: [facility] 2:39 PM [facility] REPOSITORY [facility] Imaging Services [address] [place] [address] Pelvic (Non ) MR#: [id number] Acct: [id number] Name: LESLIE DE LEÓN Rep #: [id number] : 1975 F 42 From: Floyd Moncada MD PCP: Sabrina Pena III, MD Status: REG CLI Study: Pelvic (Non ) Date of Exam: 01/24/18 Exam# [id number] Ordering Dr: Gris Griffin STUDY: ULTRASOUND TRANSVAGINAL [...] CC: KATIE Griffin; Sabrina Pena III, MD Hydraulic Lift Driver: Signed TRANSVAGINAL Observed: 01/24/2018 Status: F Source: [facility] NON- 2:39 PM [facility] REPOSITORY [facility] Imaging Services [address] [place] [address] Transvaginal Non- MR#: [id number] Acct: [id number] Name: LESLIE DE LEÓN Rep #: [id number] : 1975 F 42 From: Floyd Moncada MD PCP: Sabrina Pena III, MD Status: REG CLI Study: Transvaginal Non- Date of Exam: 01/24/18 Exam# [id number] Ordering Dr: Gris Griffin TEAROOM HOSTESS-C STUDY: ULTRASOUND TRANSVAGINAL CLINICAL: Female, 42 years [...] CC: KATIE Griffin; Sabrina Pena III, MD Hydraulic Lift Driver: Signed PROGRESS Observed: 01/20/2018 Status: COMPLETED Source: [place] [facility] 2:34 PM [facility] REPOSITORY HNO ID: [id number] Author: Jody Red (Katie) Eugenio Service: (none) [...] SURGICAL HISTORY OF 2007 heart cath at [facility] by Dr. Aburto - REM LESION TRUNK,ARM,LEG [...] - Thyroid Mother - Heart Paternal Grandmother [place] - Pancreatitis [Other] [OTHER] Mother Social History [...] Patient agreeable to treatment plan. Jody Becker, FUR MIXER.CERAMIC CHEMIST XR FOOT 3V AP/LAT/OBL Observed: 01/20/2018 Status: F Source: [place] RT 1:26 PM [facility] REPOSITORY [...] are incidental tiny calcaneal spurs at the [place]'s tendon and plantar fascial insertions. IMPRESSION: Mild soft tissue swelling. No acute bony process. Hydraulic Lift Driver: PSCMorris Transcribe Date/Time: Jan 20 2018 1:32P Dictated by : KEENAN LAI MD This examination was interpreted and the report reviewed and electronically signed by: KEENAN LAI MD on Jan 20 2018 1:34PM EST [id number] PROGRESS Observed: 01/20/2018 Status: COMPLETED Source: [place] 1:18 PM [facility] REPOSITORY HNO ID: [id number] Author: Jesica Reyes (Rt) Alana Connors Service: (none) Author Type: Expressive Therapist Type: Progress Notes Filed: 01/20/2018 1:25 PM [...] PM CNOV Observed: 01/20/2018 Status: COMPLETED Source: [place] 12:30 PM [facility] REPOSITORY Office Visit (WSTR) LESLIE DE LEÓN ([id number]) 1975 F Date Time Provider Department 01/20/18 12:30 PM JODY BECKER (TEAROOM HOSTESS) [facility] During your visit today, we recorded [...] problem with its blood supply. Jody Becker APRN.CERAMIC CHEMIST 01/20/2018 4:18 PM Signed Subjective HPI Patient [...] SURGICAL HISTORY OF 2007 heart cath at [facility] by Dr. Aburto - REM LESION TRUNK,ARM,LEG [...] - Thyroid Mother - Heart Paternal Grandmother [place] - Pancreatitis [Other] [OTHER] Mother Social History [...] Patient agreeable to treatment plan. Jody Becker APRN.CERAMIC CHEMIST Referring Provider: SELF [200] Allergies As of Date: 01/20/2018 Noted Allergy Reaction PENICILLINS 07/02/2005 4 - Hives TRAMADOL 01/30/2008 11 - Vomiting Date Reviewed: 01/20/2018 Reviewed by: Dora Ochoa LPN - Fully Assessed Reason for Visit: right foot pain [Other] Cmt: injured it 1 week ago Primary Visit Diagnosis:Right foot injury, initial encounter [S99.921A] Order(s):XR FOOT GENERAL 3V AP/LAT/OBL RT [[id number]] Order #: [id number] FUTURE Prescriptions as of 01/20/2018 Sig: SUMATRIPTAN [...] Disposition History Recorded Letter Text Jody Becker APRN.[facility] [address] [facility] [address] Dept: [phone] 01/20/2018 Leslie De León [address] [facility] [address] To Whom it May Concern: This is to certify that Leslie De León was seen at our office for medical care. Leslie may return to work on 01/21/2018. If you have any questions please feel free to call. Sincerely: Jody Becker APRN.[facility] Encounter Status:Closed by JODY BECKER on 01/20/18 PROGRESS Observed: 01/06/2018 Status: COMPLETED Source: [place] 8:01 AM [facility] REPOSITORY HNO ID: [id number] Author: Yosef Red (Katie) CORNELL Montano Service: [...] anticoagulant therapy prophylacticaly. Follows with Dr. Shaikh Market Development Specialist. No upcoming apt. States mild SOB at [...] PE, factor V leiden, nephrolithiasis, pericarditis, and [place]. She has also underwent a cardiac cath in the past without stent placement. Patient presented to [facility] ER on two separate occasions [...] COPD by Dr. Shaikh. Leslie De León ([id number]) Female 1975 Result Date - 05/03/2014 Component Results Component Value Range AND Units Status Performing Lab Cardiolipin Ab, IgG <9 0 - [address] [facility] Comment: <10 GPL ? ? Negative 10-40 GPL ? Equivocal >40 GPL ? ? Positive Cardiolipin Ab, IgM 15 (H) 0 - [address] [facility] Comment: <12 MPL ? ? Negative 12-40 MPL ? Equivocal >40 MPL ? ? Positive Cardiolipin Ab, IgA <9 0 - [address] [facility] Comment: <12 APL ? ? Negative 12-40 APL ? Equivocal >40 APL ? ? Positive PT Sec 9.9 8.4 - 13.[address] [facility] PT INR 0.9 0.8 - 1.[address] [facility] Comment: The PT/INR can be used to [...] APTT 25.0 23.0 - 32.[address] [facility] Comment: The APTT can be used to [...] ? The patient is negative for the T86489B mutation in the prothrombin gene. ?Please refer [...] The DNA sample is negative for the M19030H point mutation in the 3' untranslated region [...] SURGICAL HISTORY OF 2007 heart cath at [facility] by Dr. 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 No evidence of hypercoag condition to warrant anticoagulation. I have reviewed these results with the patient. Yosef Montano, MSN FUR MIXER.CERAMIC CHEMIST CNOV Observed: 01/06/2018 Status: COMPLETED Source: [place] 7:40 AM [facility] REPOSITORY Office Visit (FAMPWS) LESLIE DE LEÓN ([id number]) 1975 F Date Time Provider Department 01/06/18 7:40 AM YOSEF MONTANO (TEAROOM HOSTESS) [facility] During your visit today, we recorded [...] anticoagulant therapy prophylacticaly. Follows with Dr. Shaikh Market Development Specialist. No upcoming apt. States mild SOB ANDquot;at [...] PE, factor V leiden, nephrolithiasis, pericarditis, and [place]. She has also underwent a cardiac cath in the past without stent placement. Patient presented to [facility] ER on two separate occasions [...] COPD by Dr. Shaikh. Leslie De León ([id number]) Female 1975 Result Date - 05/03/2014 Component Results Component Value Range ANDamp; Units Status Performing Lab Cardiolipin Ab, IgG ANDlt;9 0 - [address] [facility] Comment: ANDlt;10 GPL ? ? Negative 10-40 GPL ? Equivocal ANDgt;40 GPL ? ? Positive Cardiolipin Ab, IgM 15 (H) 0 - [address] [facility] Comment: ANDlt;12 MPL ? ? Negative 12-40 MPL ? Equivocal ANDgt;40 MPL ? ? Positive Cardiolipin Ab, IgA ANDlt;9 0 - [address] [facility] Comment: ANDlt;12 APL ? ? Negative 12-40 APL ? Equivocal ANDgt;40 APL ? ? Positive PT Sec 9.9 8.4 - 13.[address] [facility] PT INR 0.9 0.8 - 1.[address] [facility] Comment: The PT/INR can be used to [...] APTT 25.0 23.0 - 32.[address] [facility] Comment: The APTT can be used to [...] ? The patient is negative for the [id number] mutation in the prothrombin gene. ?Please refer [...] The DNA sample is negative for the E36711O point mutation in the 3' untranslated region [...] SURGICAL HISTORY OF 2007 heart cath at [facility] by Dr. 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 No evidence of hypercoag condition to warrant anticoagulation. I have reviewed these results with the patient. Yosef Montano, MSN FUR MIXER.CERAMIC CHEMIST Referring Provider: SELF [200] Allergies As of Date: 01/06/2018 Noted Allergy Reaction PENICILLINS 07/02/2005 4 - Hives TRAMADOL 01/30/2008 11 - Vomiting Date Reviewed: 01/06/2018 Reviewed by: Aury Perez Cable Tower Operator - Fully Assessed Reason for Visit: Breathing [...] REPORT Observed: 01/04/2018 Status: F [facility]25 AM [facility] EMERGENCY ROOM REPORT NAME ACCOUNT SEX AGE ADMIT DISCHARGE TYPE MED. RECORD# NUMBER DATE DATE LESLIE DE LEÓN [id number] F 42 01/02/18 01/02/18 [id number] ROOM: DATE OF : 1975 PHYSICIAN: Ignacio [...] a little over two weeks ago at [facility] for these same symptoms and was admitted and had a significant work-up, including stress testing, an echocardiogram and a chest CT, and these were all negative as read by the radiologist and peanut vendor there. She was discharged. However, she states [...] was unremarkable while in the hospital at [place]. She has had a PE in the [...] Hylton MD TD: 01/03/18 07:35 JOB #: [id number] Transcribed by: franklin Electronically signed by: GAGANDEEP Hylton M.D. 01/04/18 07:23 Page 2 of 2 [facility]ACINTOBELKIS LESLIE Emergency Room Report CT CHEST (PE PROTOCOL) Observed: 01/02/2018 Status: F Source: [facility] 7:01 PM [place] [address] Patient: LESLIE DE LEÓN Phone#: : 1975 Age: 42 Gender: F Pt. Type: ER Account: [id number] Location: [facility] Ordering: IGNACIO HYLTON Exam Date: 01/02/2018/18:38 Family Phys: SABRINA PARKERTRACY Charge Code: 615476 Physician: Amelia Order #: [id number] DLP Dose#: 26.20 PROCEDURE: CT CHEST WITH [...] 42 Gender: F Pt. Type: ER Account: [id number] Location: 052 Ordering: IGNACIO CONCETTA Exam Date: 01/02/2018/18:38 Family Phys: SABRINA PARKERTRACY Charge Code: 279462 Physician: Amelia Order #: [id number] DLP Dose#: 26.20 CONCLUSION: No acute disease. Dictated by: Monica Noe MD on 01/03/2018 at 8:59 Approved by: Monica Noe MD on 01/03/2018 at 8:59 CBC Collected: 01/02/2018 Status: F Source: [facility] 6:25 PM [facility] REPOSITORY TYPE CODE TESTS RESULT OUT [...] 7.10 x10EE3/U L Neut # 3.20 LAB Dade #(LOINC) 0.20 - 1.00 x10EE3/U L Dade # 0.50 LAB EO #(LOINC) 0.00 - 0.50 x10EE3/U L EO # 0.10 LAB Baso #(LOINC) 0.00 - 0.10 x10EE3/U L Baso # 0.00 LAB MANUAL DIFF(LOINC) MANUAL DIFF N/A LAB MORPHOLOGY(LOINC ) MORPHOLOGY N/A Result Comment: {CD] Performed By: #### [id number] #### [facility],[address] [place], [place] [address] D-DIMER, QUANTITATIVE Collected: 01/02/2018 Status: F Source: [facility] 6:25 [facility] REPOSITORY TYPE CODE TESTS RESULT OUT OF REFERENCE UNITS RANGE LAB D-DIMER, QUANTITATI VE(LOINC) D-DIMER, QUANTITATIVE Result Comment: QUANT D-DIMER LAB D-DIMER 0 - 230 ng/ml QUANT(LOINC) High D-DIMER QUANT 294 Performed By: #### [id number] #### [address] [address] TROPONIN Collected: 01/02/2018 Status: F Source: [facility] 6:[address] [place] [address] REPOSITORY TYPE CODE TESTS RESULT OUT OF [...] such as heterophile antibodies). Performed By: #### [id number] #### [address] [address] CMP WITH EGFR Collected: 01/02/2018 Status: F Source: [address] REPOSITORY TYPE CODE TESTS RESULT OUT [...] OF AGE AND OLDER. Performed By: #### [id number] #### [place] [address] MAGNESIUM Collected: 01/02/2018 Status: F Source: [facility] 6:25 PM [facility] REPOSITORY TYPE CODE TESTS RESULT OUT OF REFERENCE UNITS RANGE LAB MAGNESIUM( 1.6 - 2.6 mg/dl LOINC) MAGNESIUM 1.9 Performed By: #### [id number] #### [place] [address] BNP (B-TYPE NATRIURETIC Collected: 01/02/2018 Status: F [facility] 6[facility] PM [facility] REPOSITORY TYPE CODE TESTS RESULT OUT OF RANGE REFERENCE UNITS LAB BNP(LOINC) 1 - 100 pg/ml BNP 7 Performed By: #### [id number] #### [facility],[address] [place] [address] PROGRESS Observed: 12/28/2017 Status: COMPLETED Source: [place] 5:09 PM [facility] [place] REPOSITORY HNO ID: [id number] Author: Jody Red (Katie) LEONIE Becker Service: [...] SURGICAL HISTORY OF 2007 heart cath at [facility] by Dr. Aburto - REM LESION TRUNK,ARM,LEG [...] - Thyroid Mother - Heart Paternal Grandmother [place] - Pancreatitis [Other] [OTHER] Mother Social History [...] CNP CNOV Observed: 12/28/2017 Status: COMPLETED Source: [place] 1:15 PM [facility] REPOSITORY Office Visit (UCWSTR) LESLIE DE LEÓN ([id number]) 1975 F Date Time Provider Department 12/28/17 [...] SURGICAL HISTORY OF 2007 heart cath at [facility] by Dr. 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 -May use otc antibiotic ointment PRN [...] - Fully Assessed Reason for Visit: Laceration [3817] Cmt: right hand middle finger cut x 1 hour ago Primary Visit Diagnosis:Laceration of right middle finger without foreign body without damage to nail, initial encounter [S61.212A] Order(s):TDAP VACCINE AGE 7+ IM [[id number]] Order #: [id number] Prescriptions as of 12/28/2017 Sig: FLUTICASONE 100 [...] LEAD ELECTROCARDIOGRAM Observed: 12/21/2017 Status: F Source: [facility] 3:48 PM [facility] REPOSITORY [facility] Cardiovascular Services [address] [place] [address] 12 Lead EKG 12/15/17 1313 MR#: [id number] Acct: [id number] Name: LESLIE DE LEÓN Rep #: [id number] : 1975 42 From: Jerry Bennett MD [...] ECG Confirmed by JERRY BENNETT MD ([id number]), metropolitan editor GERSON CRUZ ([id number]) on 12/21/2017 3:47:29 PM Referred By: CELSO Confirmed By:JERRY BENNETT MD 12/21/17 1547 Date Jerry Bennett MD CC: Sabrina Pena III, MD; Alessia Houston MD Signed PROGRESS Observed: 12/17/2017 Status: COMPLETED Source: [place] 2:35 PM [facility] REPOSITORY HNO ID: [id number] Author: Jason (Leonie) LEONIE Kang Service: (none) [...] PE, factor V leiden, nephrolithiasis, pericarditis, and [place]. She has also underwent a cardiac cath in the past without stent placement. Patient presented to [facility] ER on two separate occasions [...] as: Impression IMPRESSION: Findings as described above. Hydraulic Lift Driver: MATEO ? Transcribe Date/Time: Dec ?2:33P Dictated [...] SURGICAL HISTORY OF 2007 heart cath at [facility] by Dr. 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 IMPRESSION: Findings as described above. Hydraulic Lift Driver: MATEO Transcribe Date/Time: Dec 17 2017 2:33P Dictated by : KADE ODOM MD This examination was interpreted and the report reviewed and electronically signed by: KADE ODOM MD on Dec 17 2017 2:34PM EST [id number] CNOV Observed: 12/17/2017 Status: COMPLETED Source: [place] 2:20 PM [facility] REPOSITORY Office Visit (FAMPWS) LESLIE DE LEÓN ([id number]) 1975 F Date Time Provider Department 12/17/17 [...] PE, factor V leiden, nephrolithiasis, pericarditis, and [place]. She has also underwent a cardiac cath in the past without stent placement. Patient presented to [facility] ER on two separate occasions [...] as: Impression IMPRESSION: Findings as described above. Hydraulic Lift Driver: MATEO ? Transcribe Date/Time: Dec ?2:33P Dictated [...] SURGICAL HISTORY OF 2007 heart cath at [facility] by Dr. 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[employer] Social History Main Topics Smoking status: [...] due on 09/04/2021 INFLUENZA Completed Data reviewed [facility] ER note, labs, CT, CTA [...] 12/17/17 PROGRESS Observed: 12/17/2017 Status: COMPLETED Source: [place] 2:18 PM [facility] REPOSITORY O ID: [id number] Author: Allegra Robles Service: (none) Author Type: [...] EMERGENCY DEPARTMENT Observed: 12/16/2017 Status: F Source: [facility] SUMMARY 12:04 AM [facility] REPOSITORY [facility] Medical Records Department [address] [place] [address] Emergency Department Summary 12/15/17 2358 MR#: [id number] Acct: [id number] Name: LESLIE DE LEÓN Rep #: [id number] : 1975 42 From: Rodriguez Siegel MD [...] of cardiomyopathy This note was generated with Whistle Groupation software. It may contain incorrect words, spelling, [...] your Primary Care Provider. Call [facility] ([phone]) or report to the closest Emergency Room. Call 911 if necessary. 12/16/17 0004 <Electronically signed by Rodriguez Siegel MD> Date Rodriguez Siegel MD Cosigner Signature (If Indicated): Date CC: Sabrina Pena III, MD URINALYSIS, COMPLETE Collected: 12/15/2017 Status: F Source: [place] 11:28 PM [facility] REPOSITORY Order Comment: How was Urine Obtained? [...] URINE SEEN Performed By: #### L400.0001 #### [facility] [address] [place], [address] EMERGENCY DEPARTMENT Observed: 12/15/2017 Status: F Source: [facility] SUMMARY 5:52 PM [facility] REPOSITORY [facility] Medical Records Department [address] [place] [address] Emergency Department Summary 12/15/17 1650 MR#: [id number] Acct: [id number] Name: LESLIE DE LEÓN Rep #: [id number] : 1975 42 From: Alessia Houston MD [...] reflux disease, PE, factor V Leiden, and [place]. Patient states she did have a cardiac [...] Viral syndrome This note was generated with Univision dictation software. It may contain incorrect words, [...] problems, contact your Primary Care Provider. Call [facility] ([phone]) or report to the closest Emergency Room. Call 911 if necessary. 12/15/171751 <Electronically signed by Alessia Houston MD> Date Alessia Houston MD Cosigner Signature (If Indicated): Date CC: Sabrina Pena III, MD DISCHARGE INSTRUCTION Observed: 12/15/2017 Status: F Source: [facility] 5:01 PM [facility] REPOSITORY [facility] Medical Records Department [address] [place] [address] Discharge Instruction 12/15/17 1700 MR#: [id number] Acct: [id number] Name: LESLIE DE LEÓN Rep #: [id number] : 1975 42 From: Alessia Houston MD [...] your Primary Care Provider. Call [facility] ([phone]) or report to the closest Emergency Room. Call 911 if necessary. 12/15/17 1701 <Electronically signed by Alessia Houston MD> Date Alessia Houston MD Cosigner Signature (If Indicated): Date CC: Sabrina Pena III, MD DISCHARGE INSTRUCTION Observed: 12/15/2017 Status: F Source: [facility] 4:52 PM [facility] Medical Records Department [address] [place] [address] Discharge Instruction 12/15/17 165 MR#: [id number] Acct: [id number] Name: LESLIE DE LEÓN Rep #: [id number] : 1975 42 From: Alessia Houston MD [...] your Primary Care Provider. Call [facility] ([phone]) or report to the closest Emergency Room. Call 911 if necessary. 12/15/17 1652 <Electronically signed by Alessia Houston MD> Date Alessia Houston MD Cosigner Signature (If Indicated): Date CC: Sabrina Pena III, MD CTA CHEST W/WO Observed: 12/15/2017 Status: F Source: [facility] CONTRAST 2:18 PM [facility] REPOSITORY [facility] Imaging Services [address] [place], [place] [address] [address] CTA Chest W/WO Contrast MR#: [id number] Acct: [id number] Name: LESLIE DE LEÓN Rep #: [id number] : 1975 F 42 From: Santhosh Morse MD PCP: Sabrina Pena III, MD Status: REG ER Study: CTA Chest W/WO Contrast Date of Exam: 12/15/17 Exam# [id number] Ordering Dr: Alessia Houston MD STUDY: CTA [...] Santhosh Morse MD at 15:33 EST Tel [phone], Service support , CC: Sabrina Pena III, MD; Alessia Houston MD Hydraulic Lift Driver: Signed URINALYSIS, COMPLETE Collected: 12/15/2017 Status: F Source: [place] 1:30 PM [facility] REPOSITORY Order Comment: How was Urine Obtained? [...] URINE SEEN Performed By: #### L400.0001 #### [facility] [address] [place], [place], [address] CBC W/DIFF, AUTOMATED Collected: 12/15/2017 Status: F Source: [place] 1:26 PM [facility] REPOSITORY TYPE CODE TESTS RESULT OUT OF [...] Lymph 1.83 Performed By: #### L100.0100 #### [facility] [address] [place], [place], [address] BASIC METABOLIC Collected: 12/15/2017 Status: F Source: [place] PROFILE (BMP) 1:26 PM [facility] REPOSITORY Order Comment: 'TROP' Serial specimen #1, [...] 8 Performed By: #### L500.2500, L501.4010 #### [facility] [address] [place], [place], [address] TROPONIN-I Collected: 12/15/2017 Status: F Source: [place] 1:26 PM [facility] REPOSITORY Order Comment: 'TROP' Serial specimen #1, #2, #3, or #4: 1 TYPE CODE TESTS RESULT OUT OF RANGE REFERENCE UNITS LAB L501.4010 <0.06 ng/mL Normal < 0.02 TROPONIN-I Result Comment: TROPONIN-I EXPECTED VALUES <0.05 NEGATIVE 0.06 - 0.59 AT RISK OF IN > OR = 0.60 SUGGEST IN Performed By: #### L500.2500, L501.4010 #### [facility] [address] [place], [address] BNP,B-TYPE NATRIURETIC Collected: 12/15/2017 Status: F Source: JACQUELINE PEPTIDE 1:26 PM [facility] REPOSITORY TYPE CODE TESTS RESULT OUT OF RANGE REFERENCE UNITS LAB L503.6620 0-100 pg/mL Normal B-TYPE 12.4 CHRISTOPHER PEP Performed By: #### L503.6620 #### [facility] [address] [place], [address] D-DIMER QUANTITATIVE Collected: 12/15/2017 Status: F Source: JACQUELINE (DVT/PE) 1:26 PM [facility] REPOSITORY Order Comment: CRITICAL VALUE VERIFIED. CALLED [...] Embolism (PE) Performed By: #### L300.8000 #### [facility] [address] [place], [address] CHEST PA AND LATERAL Observed: 12/15/2017 Status: F Source: JACQUELINE 1:22 PM [facility] REPOSITORY [facility] Imaging Services [address] [place] [address] Chest PA and Lateral MR#: [id number] Acct: [id number] Name: LESLIE DE LEÓN Sushant Rep #: [id number] : 1975 F 42 From: Santhosh Morse MD PCP: Sabrina Pena III, MD Status: REG ER Study: Chest PA and Lateral Date of Exam: 12/15/17 Exam# [id number] Ordering Dr: Alessia Houston MD STUDY: X-RAY [...] Santhosh Morse MD at 14:26 EST Tel [phone], Service support , CC: Sabrina Pena III, MD; Alessia Houston MD Hydraulic Lift Driver: Signed URGENT CARE VISIT Observed: 12/15/2017 Status: F Source[facility] RE[facility] 1:00 PM [facility] REPOSITORY [facility] [address] [place] [address] OFFICE VISIT Date of Service: 12/15/17 MR#: [id number] Acct: [id number] Name: LESLIE DE LEÓN Rep #: [id number] : 1975 Provider: Alvarez NORRIS Age/Sex: 42/F Location[place] [facility]: Signed Intake Vital Signs12/15/17 Height 5 [...] medical history is significant for cardiomyopathy with IN and pulmonary embolism several years ago after [...] EMS transfer states she will take her [facility] at this time AGAINST MEDICAL ADVICE. Patient is aware of all the above. Report called emergency room at this time, given report to Dr. Pena. This note was generated with [employer] software. It may contain incorrect words, spelling, and punctuation that were not noted in checking the note before signing. Coding Level of Care Code Off vis,new,level 4 Diagnoses Pneumonia J18.9 Chest pain R07.9 12/15/17 1300 <Electronically signed by Alvarez NORRIS> Date Alvarez NORRIS Cosigner Signature: Date (if applicable) CC: CNPTOUTREACH Observed: 10/12/2017 Status: COMPLETED Source: [place] 12:00 AM [facility] REPOSITORY Patient Outreach (FAMPST) LESLIE DE LEÓN ([id number]) 1975 F Date Time Provider Department 10/12/17 SABRINA PENA III FAMPST During your visit today, we recorded the following information about you: Allergies As of Date: 10/12/2017 Noted Allergy Reaction PENICILLINS 07/02/2005 4 - Hives TRAMADOL 01/30/2008 11 - Vomiting Date Reviewed: 09/21/2017 Reviewed by: Josue Kohler LPN - Fully Assessed Visit Diagnosis:Medication management [Z79.899] Order(s):LIPID PANEL BASIC [SQLIPB] Order #: [id number] FUTURE Prescriptions as of 10/12/2017 Sig: LORAZEPAM [...] / CODE REACTION SEVERITY SOURCE 09/14/2018 Drug Penicillins/J13896 Rash Unknown Jacqueline Allergy/416 0476(RXNORM) Community 002234([facility]) Repository 09/14/2018 Drug tramadol/[id number] Rash Unknown Jacqueline Allergy/416 0(RXNORM) Community 483348([facility] ED CT) Repository 01/30/2008 DRUG TRAMADOL Vomiting [facility] INGREDI/[address] [place] [address](SNOM Repository ED CT) 07/02/2005 Drug PENICILLINS HIVES Med [facility] Class/[address] [place] 1003(SNOMED Repository CT) Drug PENICILLINS Moderate [place] Allergy/416 (CLASS)/55509965(R (Severity [facility] [address]098(SNOM XNORM) Modifier) Hospital ED CT) (Qualifier Repository Value) Drug TRAMADOL/82361321( Moderate [place] Allergy/416 RXNORM) (Severity [facility] 929440(SNOM Modifier) Hospital ED CT) (Qualifier Repository Value) ENCOUNTERS ENCOUNTERS ADMIT/DISCHARGE ACCOUNT ADMITTING ENCOUNTER LOCATION SOURCE NUMBER CLASS 10/04/2018/10/04/20 [id number] Ambulatory [address] Repository 09/22/2018/09/22/20 [id number] Ambulatory [address] Repository 09/22/2018/09/26/20 [id number] Ambulatory [address] Repository 09/14/2018/09/14/20 [id number] Emergency [address] ing:ED Repository 09/14/2018 [id number] Ambulatory [facility] ing:LABSPEC Repository 09/14/2018/09/14/20 [id number] Ambulatory [address] Repository 09/14/2018/09/15/20 [id number] Ambulatory [address] Repository 08/31/2018/08/31/20 [id number] Ambulatory [address] Repository 08/31/2018/08/31/20 [id number] Ambulatory [address] Repository 08/29/2018/08/30/20 [id number] Ambulatory [address] Repository 08/04/2018/08/04/20 [id number] Ambulatory [address] ing:ENRoom: Repository AC18 08/04/2018/08/04/20 [id number] Ambulatory [place] [address] [place].CF.[facility] Repository 07/27/2018/07/27/20 [id number] Ambulatory BMSBuilding:B Jacqueline 18 MS.[facility] Repository 07/18/2018/07/18/20 [id number] Emergency [address] ing:ED Repository 07/15/2018/07/18/20 [id number] Ambulatory [address] Repository 06/28/2018/06/28/20 [id number] Emergency [address] ing:ED Repository 05/28/2018/05/28/20 [id number] Emergency [address] ing:ED Repository 05/02/2018/05/03/20 [id number] Ambulatory [address] Repository 05/02/2018/05/04/20 [id number] Ambulatory [address] Repository 04/27/2018/04/27/[id number] Repository 03/22/2018/03/22/20 [id number] VIOLETA PHILLIPS Emergency [address]in[address] [place] [address] 18 DO oom: ERBed: [facility] Repository 03/18/2018/03/21/20 [id number] Ambulatory [address] Repository 02/09/2018 [id number] Ambulatory [facility] ing:LAB Repository 01/27/2018/01/28/20 [id number] Ambulatory BMSBuilding:B Jarrell 18 [place].[facility] Repository 01/24/2018 [id number] Ambulatory [facility] ing:US Repository 01/20/2018/01/21/20 [id number] Ambulatory [address] Repository 01/20/2018/01/22/20 [id number] Ambulatory [address] Repository 01/06/2018/01/08/20 [id number] Ambulatory [address] Repository 01/02/2018/01/03/[id number] IGNACIO HYLTON [facility] C oom: ERBed: [facility] Repository 12/28/2017/12/31/19 [id number] Ambulatory [address] Repository 12/17/2017/12/18/19 [id number] Ambulatory [address] Repository 12/17/2017/12/21/19 [id number] Ambulatory [address] Repository 12/15/2017/12/17/19 [id number] Emergency Jarrell Jarrell 18 [facility] ing:ED Repository 12/15/2017/12/15/19 [id number] Emergency Jarrell Jacqueline 18 [facility] ing:ED Repository 12/15/2017/12/15/19 [id number] Ambulatory BMSBuilding:B Jacqueline 18 [place] Repository PAYERS PAYERS ENCOUNTER GUARANTOR PAYER SUBSCRIBER SOURCE 09/14/2018 LESLIE Sushant [id number] Primary LESLIE L Jacqueline [address] Insurance:AETNAPolicy BECKLERDOB: [address], Number: [id number] Medical Center [address]Bdn: 330 [id number] Repository [phone] () Date:4924-53-77IG [address] [place] [address]BT: 09/14/2018 Secondary NOT GIVENUNK Jacqueline Insurance:SELF PAY [facility] Number: Effective Repository Date:2018-09-14 09/14/2018 LESLIENhan DE LEÓN239 Primary LESLIE L Jacqueline [address] Insurance:AETNAPolicy BECKLERDOB: [address], Number: [id number] Medical Center [address]Yau: (330 [id number] Repository [phone] () Date:2865-51-36UJ [address] [address]GB: 09/14/2018 Secondary NOT GIVENUNK Jacqueline Insurance:SELF PAY [facility] Number: Effective Repository Date:2018-09-14 08/04/2018 LESLIE L [id number] Primary LESLIE L Jacqueline [address] Insurance:AETNAPolicy BECKLERDOB: [address], Number: [id number] Medical Center [address]Txx: (330 [id number] Repository [phone] (HP) Date:6862-34-01ZE [address] [address]WQ: 08/04/2018 Secondary NOT GIVENUNK Jarrell Insurance:SELF PAY [facility] Number: Effective Repository Date:2018-07-27 08/04/2018 LESLIE Sushant [id number] Primary LESLIE Sushant [address] Insurance:AETNAPolicy BECKLERDOB: [address], Number: [id number] Medical Center [address]Igp: (330) [id number] Repository [phone] (HP) Date:9108-42-70SD [address] [place] [address]UO: 08/04/2018 Secondary NOT GIVENUNK Jacqueline Insurance:SELF PAY [facility] Number: Effective Repository Date:2018-08-04 07/27/2018 LESLIE L [id number] Primary LESLIE L Jacqueline [address] Insurance:AETNAPolicy BECKLERDOB: [address], Number: [id number] Medical Center [address]Qxh: (330) [id number] Repository [phone] (HP) Date:4743-15-09BY [address] [place] [address]KV: 07/27/2018 Secondary NOT GIVENUNK Jarrell Insurance:SELF PAY [facility] Number: Effective Repository Date:2018-07-19 07/18/2018 LESLIE L [id number] Primary LESLIE L Jacqueline [address] Insurance:AETNAPolicy BECKLERDOB: [address], Number: [id number] Medical Center [address]Fzx: (330) [id number] Repository [phone] (HP) Date:9229-73-85AB [address] [address]AA: 07/18/2018 Secondary NOT GIVENUNK Jarrell Insurance:SELF PAY [facility] Number: Effective Repository Date:2018-07-18 06/28/2018 LESLIE DE LEÓN239 Primary LESLIE [facility]ushant [facility] Insurance:AETNAPoljodyy BECKBELKISDOB: [address], Number: [id number] Medical Center [address]Aiy: (330) [id number] Repository [phone] () Date:0127-96-50AT [address] [place] [address]WN: 06/28/2018 Secondary NOT GIVENUNK Jacqueline Insurance:SELF PAY [facility] Number: Effective Repository Date:2018-06-28 05/28/2018 LESLIE L [id number] Primary LESLIE L Jacqueline [place] Insurance:AETNAPolbogdan DE LEÓNDOB: [facility], Number: [id number] Medical Center [address]Tnp: (330) [id number] Repository [phone] () Date:0537-91-23FJ [address] [address]EJ: 05/28/2018 Secondary NOT GIVENUNK Jacqueline Insurance:SELF PAY [facility] Number: Effective Repository Date:2018-05-28 04/27/2018 LESLIE SARTHAKDOB: Primary LESLIE [place] Insurance:AETNA SARTHAKDOB: [facility] [id number] [place] [address] Repository [address]Xbs: (330) Number: WILEY [phone] () [id number] [facility] Date:Plan Name:[address] [address] 03/22/2018 LESLIE JACINTOBELKISDOB: Primary LESLIE [place] Insurance:AETNA BECKLERDOB: [facility] [employer] [id number] Repository [address]Pfv: (330) Number: WILEY [phone] () [id number] [facility] Date:Plan Name:[place] [id number] 02/09/2018 LESLIE Sushant [id number] Primary LESLIE L Jacquelinegavin [place] Insurance:AEGiovanna HAYESB: [facility], Number: [id number] Medical Center [address]Cok: [id number] Repository [phone] Date:5382-23-95GV [address] () [place]14537[place] [address]KC: 02/09/2018 Secondary NOT GIVENUNK Jarrell Insurance:SELF PAY [facility] Number: Effective Repository Date:2018-02-09 01/27/2018 LESLIENhan DE LEÓN8848 Primary LESLIE L Jacqueline [place] Insurance:AETCassius HAYESB: [facility], Number: [id number] Medical Center [address]Yif: [id number] Repository [phone] Date:9943-84-28XJ [address] () [place]258[place] [address]DM: 01/27/2018 Secondary NOT GIVENUNK Jacqueline Insurance:SELF PAY [facility] Number: Effective Repository Date:2018-01-27 01/24/2018 LESLIENhan DE LEÓN8848 Primary LESLIE L Jacqueline [place] Insurance:AEGiovanna HAYESB: [facility], Number: [id number] Medical Center [address]Axb: [id number] Repository [phone] Date:1409-81-34GX BOX () [place]2453[place] [address]AM: 01/24/2018 Secondary NOT GIVENUNK Jarrell Insurance:SELF PAY [facility] Number: Effective Repository Date:2018-01-20 01/02/2018 LESLIE FREDDYB: Primary LESLIE L [place] Insurance:AELIDIA HAYESB: [facility] [id number] [address] Repository [address]Evx: (330) Number: WILEY [phone] () [id number] [facility] Date:Plan Name: [place] [id number] 12/15/2017 LESLIENhan DE LEÓN8848 Primary LESLIE L Jac[place] Insurance:AETNAPolicy BECKLERDOB: [facility], Number: [id number] Medical Center [address]Yui: [id number] Repository [phone] Date:6565-83-64CG [address]OX (HP) [address]MTANESHA [place] [address]XN: 12/15/2017 Secondary NOT GIVENUNK Jarrell Insurance:SELF PAY [facility] Number: Effective Repository Date:2017-12-15 12/15/2017 LESLIENhan [id number] Primary LESLIE L Jacqueline [facility] Insurance:AETNAPolicy BECKLERDOB: [facility], Number: [id number] Medical Center [address]Pid: [id number] Repository [phone] Date:5593-43-50QA BOX (HP) 320048VQTANESHA OAKES [address]BG: 12/15/2017 Secondary NOT GIVENUNK Jacqueline Insurance:SELF PAY [facility] Number: Effective Repository Date:2017-12-15 12/15/2017 Agata [id number] Primary Agata Jarrell [place] Insurance:AETNAPolicy BecklerDOB: [facility], Number: [id number] Medical Center [address]Gsn: (330) [id number] Repository [phone] (HP) Date:9212-72-89LG [address]YPTANESHA [place] [address]YB: 12/15/2017 Secondary NOT GIVENUNK Jarrell Insurance:SELF PAY [facility] Number: Effective Repository Date:2017-12-15
== END 2018-09-14 22:43 | disposition home or self-care (01) ==
LOC: ED 22:43
PROVIDERS: Emergency Provider Emergency Medicine; Family Provider Family Medicine; PCP Family Medicine
DX: R05 Cough (principal); E66.9 Obesity, unspecified; K21.9 Gastro-esophageal reflux disease without esophagitis; I25.10 Atherosclerotic heart disease of native coronary artery without angina pectoris; Z86.711 Personal history of pulmonary embolism
CPT/HCPCS: 99282

== ENCOUNTER 2018-12-12 16:12 | Emergency (ER) | payer BC, SELFPAY ==
[2018-12-12 16:13] VITALS: BP 144/86; PULSE 95; RESP 19; TEMP 36; O2SAT 98; BMI 46.8
[2018-12-12 16:19] VITALS: O2SAT 96
--- NOTE | 2018-12-12 16:19 | EKG12_ITS ---
Test Reason : CP Blood Pressure : / mmHG Vent. Rate : 088 BPM Atrial Rate : 088 BPM P-R Int : 136 ms QRS Dur : 074 ms QT Int : 380 ms P-R-T Axes : 022 052 048 degrees QTc Int : 459 ms Normal sinus rhythm Normal ECG Confirmed by MARGARITA ROCHA, CARLIN ([id number]), electronic news gathering editor CALLI LAWRENCE ([id number]) on 12/14/2018 10:06:13 AM Referred By: MONIKA Confirmed By:CARLIN AVILA MD
--- NOTE | 2018-12-12 16:19 | RAD_ITS ---
STUDY: X-RAY CHEST REASON FOR EXAM: Female, 43 years old. Chest pressure. TECHNIQUE: Single AP portable view of the chest. COMPARISON: July 18, 2018. FINDINGS: Telemetry wires overlie the chest. There is a mildly decreased inspiratory effort when compared to prior study. There is no evidence of acute infiltrate or mass. Question minimal right basilar atelectasis. There is no demonstrated pleural abnormality. Normal size heart. Normal mediastinum and jessi. Normal visualized pulmonary arteries. Normal visualized aortic arch and descending thoracic aorta. The thoracic spine is obscured by the mediastinum. Normal visualized ribs, clavicles, and shoulders. There is no demonstrated abnormality of the visualized soft tissue structures of the upper abdomen. RAD/Chest 1 View (Portable) IMPRESSION: Decreased inspiratory effort when compared to prior study with minimal right basilar atelectasis. Study is otherwise unchanged. Electronically Signed: Oni Contreras DO at 16:42 EST Tel [phone], Service support ,
[2018-12-12 16:37] LABS: Absolute Lymphocyte Count 1.92 X10^3/ul (0.83-4.51); Absolute Neutrophil Count 4.7 X10^3/uL (2.0-7.7); Basophil# 0.04 X10^3/uL; Basophil% 0.5 % (0-1); Eosinophil# 0.12 X10^3/uL; Eosinophils% 1.6 % (0-5); Hematocrit 41.4 % (37-47); Hemoglobin 14.4 g/dl (12.0-15.0); Lymphocyte # 1.92 X10^3/ul (4.0); Lymphocyte % 26.2 % (19-41); Mean Corp Hgb Conc 34.8 g/gl (32-36); Mean Corpuscular Hgb 32.1 pg (27.0-32.0); Mean Corpuscular Volume 92.2 fL (81-99); Mean Platelet Vol. 10.7 fl (6.2-12.0); Monocyte# 0.53 X10^3/uL; Monocyte% 7.2 % (0-10); Neutrophil % 64.4 % (47-70); Platelet Count 196 K/mm3 (150-450); RBC Distribution Width CV 12.4 % (11.6-14.6); Red Blood Count 4.49 M/mm3 (4.2-5.4); White Blood Count 7.3 K/mm3 (4.4-11.0)
[2018-12-12 16:42] LABS: POSITIVE COUNT NO; POSITIVE DIFFERENTIAL NO; POSITIVE MORPHOLOGY NO
[2018-12-12 17:12] VITALS: BP 138/71; PULSE 85; RESP 18; O2SAT 95
[2018-12-12] MEDS: Ondansetron 4 MG/2 ML Vial IV (17:19)
[2018-12-12] MEDS: 0.9% Normal Saline 1,000 ML 999 ML IV (17:19)
[2018-12-12] MEDS: Ketorolac 30 MG/ML Syringe IV (17:19)
[2018-12-12 17:55] LABS: Erythrocyte Sedimentation Rate 16 mm/hr (0-20)
[2018-12-12 18:45] LABS: Anion Gap 7 (5-15); BUN 12 mg/dL (7-18); BUN/Creat Ratio 12.5 RATIO (10-20); Calcium,Total 8.7 mg/dL (8.5-10.1); Chloride 106 mmol/L (98-107); Creatinine, Serum 0.96 mg/dL (0.55-1.02); EST Glomerular Filtration Rate 68 mL/min (>60); Est Glom Filt Rate - Afr Amer 82 mL/min (>60); Estimated Creatinine Clearance 66.59 ml/min; Glucose 162 mg/dL (74-106); Potassium 4.2 mmol/L (3.5-5.1); Sodium Level 137 mmol/L (136-145)
[2018-12-12] MEDS: proMETHazine 25 MG/ML Syringe 6.25 MG IV (18:52)
[2018-12-12] MEDS: Morphine 4 MG/ML Syringe IV (18:52)
[2018-12-12 19:00] VITALS: BP 108/62; PULSE 85; RESP 16; O2SAT 99
--- NOTE | 2018-12-12 19:10 | ED.DCSUM_ITS ---
- ER Visit Summary Date of Service: 12/12/18 Chief Complaint: Chest pain History of Present Illness: The patient is a [address] Horace Paniagua III and Dr. Aparicio. She reports that she has chest pain that began yesterday while she was undergoing light activity. Is been a continuous aching pain that is 9 out of 10 at worst and 6 out of 10 currently. Patient reports the pain is worsened by laying flat. Its unchanged with exertion, movement, or breathing. States is relieved by sitting upright. Does report she feels slightly nauseated. She has not vomited. No diaphoresis. She does report that she feels short of breath. 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 States that this is similar to that. Physical Examination: Vitals: Stable. Afebrile. General: Well-nourished and well-developed. Head: Normocephalic atraumatic. Neck: Supple, no lymphadenopathy. No JVD. Nontender. Cardiovascular: Regular rate and rhythm. No murmurs. Respiratory: No respiratory distress. Clear to auscultation bilaterally. Abdominal: Soft, nontender, nondistended, normal bowel sounds. No guarding, rebound, or peritoneal signs. Back: Nontender. Extremities: Nontender, no edema. Skin: Normal color, no rash. Neurologic: Alert and oriented ?3. Cranial nerves II through XII are intact. Normal strength and sensation. Psych: Normal affect. Test Results: EKG is sinus at 88 and unchanged from July 2018. Troponin is negative despite greater than 24 hours of constant pain. Chem-7 is more for glucose 162. CBC is normal. Sed rate is 16. Chest x-ray shows poor inspiration with atelectasis. Emergency Department Course and Treatment: Patient had an IV placed. She is given a dose of Toradol IV. She is given Zofran IV. She is resting comfortably. Treatment Plan: At this time I discussed the patient that her symptoms do sound similar to pericarditis. There is no specific test for this. She will be discharged with naproxen. Instructed to follow-up with Dr. Jaxon Aparicio and Dr. Horace Paniagua iii for further evaluation and treatment. Return to the emergency department for any worsening symptoms. Disposition: To home in improved and stable condition. Impression: 1. Atypical chest pain. 2. JASMIN score of 1 This note was generated with [employer] dictation software. It may contain incorrect words, spelling, and punctuation that were not noted in review of the chart prior to signing ED Disposition - Plan for ED Patient: Disposition: Home or Assisted Living Instructions: ED Chest Pain Atypical Unkn Cause Prescriptions: Ondansetron [Zofran Odt] 4 mg PO Q8H PRN PRN #10 tablet PRN Reason: Nausea Naproxen [Naprosyn] 500 mg PO BID #14 tablet Referrals: Horace Paniagua III, MD [Primary Care Provider] - 3-5 Days if not improving Rhett Sheridan MD [STAFF PHYSICIAN] -
[2018-12-12 19:24] VITALS: BP 116/73; PULSE 96; RESP 20; O2SAT 95
== END 2018-12-12 19:24 | disposition home or self-care (01) ==
PROVIDERS: Emergency Provider Emergency Medicine; Family Provider Family Medicine; PCP Family Medicine
DX: R07.89 Other chest pain (principal); R05 Cough; R06.09 Other forms of dyspnea; R19.7 Diarrhea, unspecified; R51 Headache; J44.9 Chronic obstructive pulmonary disease, unspecified; I10 Essential (primary) hypertension; E78.00 Pure hypercholesterolemia, unspecified; D68.51 Activated protein C resistance; Z86.711 Personal history of pulmonary embolism
CPT/HCPCS: 71045; 80048; 84484; 85025; 85652; 93005; 96361; 96374; 96375; 99285; J7030; J2405

== ENCOUNTER 2018-12-21 16:46 | Emergency (ER) | payer BC, SELFPAY ==
[2018-12-21 16:47] VITALS: BP 159/95; PULSE 83; RESP 16; TEMP 36.1; O2SAT 98; BMI 28.1
[2018-12-21 17:06] LABS: Mucous, Urine 0 SEEN /hpf (<or=2+); White Blood Cells 0 SEEN /hpf (0-5)
[2018-12-21 17:08] LABS: Color, Urine Yellow (Yellow); Glucose, Dipstick Normal (Normal); Ketone-Dipstick Negative (Negative); Leukocyte Esterase-Dipstick Negative /ul (Negative); Nitrite-Dipstick Negative (Negative); Occult Blood-Urine 250 /ul (Negative); Protein-Dipstick Negative (Negative); Urine Bilirubin Dipstick Negative (Negative); Urine Clarity Cloudy (Clear); Urine Urobilinogen Normal (Normal)
[2018-12-21 17:15] LABS: Red Blood Cells-Urine 25-50 SEEN /hpf (0-5)
[2018-12-21 17:16] LABS: Amorphous Sediment 2+; Bacteria RARE /hpf (None Seen); Squamous Epithelial Cells - UA 0-5 SEEN /hpf (5-10)
[2018-12-21 18:17] LABS: Anion Gap 8 (5-15); BUN 13 mg/dL (7-18); BUN/Creat Ratio 14.6 RATIO (10-20); Calcium,Total 8.5 mg/dL (8.5-10.1); Chloride 107 mmol/L (98-107); Creatinine, Serum 0.89 mg/dL (0.55-1.02); EST Glomerular Filtration Rate 74 mL/min (>60); Est Glom Filt Rate - Afr Amer 89 mL/min (>60); Estimated Creatinine Clearance 71.83 ml/min; Glucose 119 mg/dL (74-106); Sodium Level 139 mmol/L (136-145)
[2018-12-21 18:20] LABS: Absolute Lymphocyte Count 2.15 X10^3/ul (0.83-4.51); Absolute Neutrophil Count 3.8 X10^3/uL (2.0-7.7); Basophil# 0.02 X10^3/uL; Basophil% 0.3 % (0-1); Eosinophil# 0.13 X10^3/uL; Hemoglobin 13.7 g/dl (12.0-15.0); Lymphocyte # 2.15 X10^3/ul (4.0); Mean Corp Hgb Conc 32.6 g/gl (32-36); Mean Corpuscular Hgb 30.4 pg (27.0-32.0); Mean Corpuscular Volume 93.3 fL (81-99); Mean Platelet Vol. 11.3 fl (6.2-12.0); Monocyte# 0.37 X10^3/uL; Monocyte% 5.7 % (0-10); Neutrophil # 3.83 X10^3/uL (2.7-7.7); Neutrophil % 58.8 % (47-70); Platelet Count 203 K/mm3 (150-450); RBC Distribution Width CV 12.7 % (11.6-14.6); RBC Distribution Width SD 42.7 fl (35.1-43.9); White Blood Count 6.5 K/mm3 (4.4-11.0)
[2018-12-21 18:21] LABS: POSITIVE COUNT NO; POSITIVE DIFFERENTIAL NO; POSITIVE MORPHOLOGY NO
--- NOTE | 2018-12-21 18:24 | CT_ITS ---
STUDY: CT ABDOMEN AND PELVIS WITHOUT CONTRAST REASON FOR EXAM: Female, 43 years old. Left flank pain. Kidney stones. RADIATION DOSAGE (If Supplied By Facility): CTDIvol = ( 24.17 ) mGy, DLP = ( 1279.97 ) mGycm TECHNIQUE: Transaxial images were obtained from the dome of the diaphragm to the symphysis pubis without oral contrast, and without intravenous contrast. Sagittal and coronal images were reconstructed. Individualized dose optimization techniques were used for this CT. COMPARISON: 07/04/2017 . FINDINGS: The visualized lung bases are unremarkable. The visualized portions of the heart are within normal limits. There is decreased attenuation of the liver consistent with steatosis. There is hepatomegaly. There is non-visualization of the gallbladder, which may be secondary to either contraction or a prior cholecystectomy. Normal spleen. Normal pancreas. Normal bilateral adrenal glands. Right kidney has a 3 mm nonobstructing mid renal stone, and slight diffuse nephrocalcinosis is also suspected as seen on prior study. No hydronephrosis or renal mass. Left kidney has no definite formed stones but there is suggestion of mild diffuse nephrocalcinosis. This was also present previously. No hydronephrosis or renal mass. Evaluation of the GI tract is limited by absence of oral contrast. Cannot exclude stomach wall thickening. No dilated loops of bowel or evidence for obstruction. Cannot exclude segmental thickening of the colon of the small or large bowel. Cannot exclude enteritis or colitis. Moderate diffuse fecal retention. Appendix not directly seen. Normal abdominal aorta. Normal inferior vena cava. Normal retroperitoneum. Normal urinary bladder. There is absence of the uterus consistent with a prior hysterectomy. There is a small umbilical hernia containing fat. Normal osseous structures. CT/Abdomen/Pelvis without Cont IMPRESSION: No currently obstructing renal stones. Small nonobstructing right renal stone. Bilateral mild diffuse nephrocalcinosis. Fatty liver and hepatomegaly. Electronically Signed: Floyd Moncada MD at 19:47 EST , Service support ,
[2018-12-21] MEDS: Ondansetron 4 MG/2 ML Vial IV ×2 (18:41→20:16)
[2018-12-21] MEDS: Morphine 4 MG/ML Syringe IV ×2 (18:41→20:57)
--- NOTE | 2018-12-21 18:44 | ED.DCSUM_ITS ---
- ER Visit Summary Date of Service: 12/21/18 Chief Complaint: Left flank pain History of Present Illness: The patient is a 43 F presenting with left flank pain. She states this started yesterday. It feels similar to previous kidney stones. She has taken Aleve and ibuprofen at home. She has noted hematuria. She has nausea with no vomiting. She has had subjective fever. She denies other complaints. Physical Examination: Vitals are stable. Patient is afebrile. Alert no acute distress. HEENT exam is unremarkable. Neck is supple. Lungs are clear and equal bilaterally. Heart is regular rate and rhythm. Abdomen is soft nontender nondistended. No guarding or rebound Back: Left CVA tenderness Extremities are unremarkable. Skin is warm and dry. Remainder of exam is unremarkable. Emergency Department Course and Treatment: Patient was given morphine, Zofran IV. CBC, chemistries unremarkable. Urinalysis shows 0 white blood cells, 25-50 red blood cells. She was given additional dose of morphine, Phenergan IV. CT flank shows no currently obstructing renal stones. Small nonobstructing right renal stone. Bilateral mild diffuse nephrocalcinosis. Fatty liver and hepatomegaly. On reevaluation, she is resting comfortably. Her pain may be result of recently passed kidney stone versus musculoskeletal pain. Advised to follow-up with primary care physician/urology. Advised return to ED if worsening complaints. Disposition: Discharge home Impression: Left flank pain This note was generated with [employer] dictation software. It may contain incorrect words, spelling, and punctuation that were not noted in review of the chart prior to signing ED Disposition - Plan for ED Patient: Instructions: ED Flank Pain Uncertain Cause Prescriptions: Ondansetron [Zofran Odt] 4 mg PO Q8H PRN PRN #10 tablet PRN Reason: Nausea Referrals: Horace Paniagua III, MD [Primary Care Provider] - Nighat Coronado MD [STAFF PHYSICIAN] -
[2018-12-21 18:46] VITALS: BP 144/90; PULSE 85; RESP 16; O2SAT 99
[2018-12-21 19:12] LABS: Pregnancy, Serum, hCG Quali. NEGATIVE Negative (0-9 Nonpreg)
[2018-12-21] MEDS: proMETHazine 25 MG/ML Syringe 6.25 MG IV (21:03)
[2018-12-21 21:04] VITALS: BP 124/68; PULSE 79; RESP 18; O2SAT 96
--- NOTE | 2018-12-21 21:22 | ED.DEP ---
ED Disposition - Plan for ED Patient: Instructions: ED Flank Pain Uncertain Cause Prescriptions: Ondansetron [Zofran Odt] 4 mg PO Q8H PRN PRN #10 tablet PRN Reason: Nausea Referrals: Horace Paniagua III, MD [Primary Care Provider] - Nighat Coronado MD [STAFF PHYSICIAN] -
[2018-12-21 21:47] VITALS: BP 106/20; PULSE 85; RESP 16; O2SAT 94
== END 2018-12-21 22:03 | disposition home or self-care (01) ==
LOC: ED 19:07
PROVIDERS: Emergency Provider Emergency Medicine; Family Provider Family Medicine; PCP Family Medicine
DX: R10.9 Unspecified abdominal pain (principal); M54.9 Dorsalgia, unspecified; R31.9 Hematuria, unspecified; R11.0 Nausea; N20.0 Calculus of kidney; E83.59 Other disorders of calcium metabolism; N29 Other disorders of kidney and ureter in diseases classified elsewhere; K76.0 Fatty (change of) liver, not elsewhere classified; Z87.442 Personal history of urinary calculi
CPT/HCPCS: 74176; 80048; 81001; 84703; 85025; 96374; 96375; 96376; 99285; A4216; J2405

== ENCOUNTER 2019-01-09 20:33 | Emergency (ER) | payer BC, SELFPAY ==
[2019-01-09 20:34] VITALS: BP 147/82; PULSE 100; RESP 18; TEMP 36.7; O2SAT 96; BMI 45.8
--- NOTE | 2019-01-09 20:35 | RAD_ITS ---
STUDY: X-RAY - RIGHT SHOULDER REASON FOR EXAM: Female, 43 years old. Shoulder pain TECHNIQUE: 4 view(s) of the shoulder. COMPARISON: None. FINDINGS: Normal glenohumeral articulation. Normal acromioclavicular joint. Normal acromion. Normal humeral head and visualized proximal humerus. The soft tissue structures are unremarkable. Normal visualized pulmonary apex. RAD/Shoulder min 2 Views IMPRESSION: Normal x-ray examination of the shoulder. Electronically Signed: Seth Cordero DO at 21:40 EDT Tel , Service support ,
--- NOTE | 2019-01-09 23:37 | ED.VISSUMM ---
- ER Visit Summary Date of Service: 01/09/19 Chief Complaint: Fell landing on her right shoulder complaining of pain. History of Present Illness: The patient is a 43 F [id number]. No significant past medical history other than a cardiomyopathy which was 10 years ago and has resolved. Patient was walking down steps tripped missed the last step landing awkwardly on the ground on her right shoulder. No LOC. She is on no blood thinners. She denies other injuries. No LOC. No neck pain. Physical Examination: Well-appearing middle-age female. Vital signs are stable afebrile. HEENT exam pupils round reactive light. Mild abrasion on the right side of her cheek and face. C-spine nontender. Trachea midline. Lungs clear to auscultation bilaterally. Heart regular rhythm no murmur. Chest nontender. Abdomen soft and nontender. Pelvic girdle intact. Nontender. Left upper extremity has full range of motion is completely nontender. Full flexion-extension of the shoulder, elbow and wrist. 5 out of 5 ceramic worker strength. Right shoulder is diffusely tender also over her trapezius muscle. There is no gross bony deformity. She has limited elevation of her right shoulder due to discomfort. I do not feel this is secondary to her rotator cuff injury. She and I discussed that. Her distal humerus, elbow, forearm, wrist and hand are nontender neurovascular intact with 5 out of 5 ceramic worker strength. Normal sensation and a strong radial pulse. The pain on the right shoulder is not specifically to the AC joint. Both lower extremities are nontender normal range of motion. Back and spine are nontender. Neurologically she is awake alert with no focal motor deficits. Test Results: Right shoulder x-ray multiple views shows no acute abnormality. No fracture or dislocation. I went over the films with the patient. Emergency Department Course and Treatment: Motrin for pain. Ice to the right shoulder. Treatment Plan: Ice. Motrin for pain and swelling. Follow-up with not improving. Patient did not want a sling. Disposition: Discharge Impression: Fall Acute right shoulder contusion This note was generated with [employer] software. It may contain incorrect words, spelling, and punctuation that were not noted in review of the chart prior to signing ED Disposition - Plan for ED Patient: Referrals: Horace Paniagua III, MD [Primary Care Provider] -
[2019-01-09 23:40] VITALS: BP 97/63; PULSE 92; RESP 18
--- NOTE | 2019-01-09 23:41 | ED.DCSUM_ITS ---
- ER Visit Summary Date of Service: 01/09/19 Chief Complaint: Fell landing on her right shoulder complaining of pain. History of Present Illness: The patient is a 43 F [id number]. No significant past medical history other than a cardiomyopathy which was 10 years ago and has resolved. Patient was walking down steps tripped missed the last step landing awkwardly on the ground on her right shoulder. No LOC. She is on no blood thinners. She denies other injuries. No LOC. No neck pain. Physical Examination: Well-appearing middle-age female. Vital signs are stable afebrile. HEENT exam pupils round reactive light. Mild abrasion on the right side of her cheek and face. C-spine nontender. Trachea midline. Lungs clear to auscultation bilaterally. Heart regular rhythm no murmur. Chest nontender. Abdomen soft and nontender. Pelvic girdle intact. Nontender. Left upper extremity has full range of motion is completely nontender. Full flexion- extension of the shoulder, elbow and wrist. 5 out of 5 anesthesiologist and critical care strength. Right shoulder is diffusely tender also over her trapezius muscle. There is no gross bony deformity. She has limited elevation of her right shoulder due to discomfort. I do not feel this is secondary to her rotator cuff injury. She and I discussed that. Her distal humerus, elbow, forearm, wrist and hand are nontender neurovascular intact with 5 out of 5 anesthesiologist and critical care strength. Normal sensation and a strong radial pulse. The pain on the right shoulder is not specifically to the AC joint. Both lower extremities are nontender normal range of motion. Back and spine are nontender. Neurologically she is awake alert with no focal m otor deficits. Test Results: Right shoulder x-ray multiple views shows no acute abnormality. No fracture or dislocation. I went over the films with the patient. Emergency Department Course and Treatment: Motrin for pain. Ice to the right shoulder. Treatment Plan: Ice. Motrin for pain and swelling. Follow-up with not improving. Patient did not want a sling. Disposition: Discharge Impression: Fall Acute right shoulder contusion This note was generated with [employer] dictation software. It may contain incorrect words, spelling, and punctuation that were not noted in review of the chart prior to signing ED Disposition - Plan for ED Patient: Referrals: Horace Paniagua III, MD [Primary Care Provider] -
--- NOTE | 2019-01-09 23:41 | ED.DEP ---
ED Disposition - Plan for ED Patient: Disposition: Home or Assisted Living Instructions: ED Contusion Shoulder Referrals: Horace Paniagua III, MD [Primary Care Provider] - 1 Week if not improving Additional Instructions: Ice to the right shoulder. This will decrease pain and swelling. Hot shower warm bath to relax the muscles. Motrin for pain and swelling. Tylenol for pain. Feeling better if not improving in 1 week to 10 days follow-up with your doctor for further evaluation.
[2019-01-09] MEDS: Ibuprofen 600 MG Tablet 800 MG PO (23:47)
== END 2019-01-09 23:50 | disposition home or self-care (01) ==
PROVIDERS: Emergency Provider Emergency Medicine; Family Provider Family Medicine; PCP Family Medicine
DX: S40.011A Contusion of right shoulder, initial encounter (principal); S00.81XA Abrasion of other part of head, initial encounter; W01.198A Fall on same level from slipping, tripping and stumbling with subsequent striking against other object, initial encounter; Y93.01 Activity, walking, marching and hiking; Y92.9 Unspecified place or not applicable; Y99.9 Unspecified external cause status
CPT/HCPCS: 73030; 99283

== ENCOUNTER 2019-01-30 12:48 | Emergency (ER) | payer BC, SELFPAY ==
[2019-01-30 12:49] VITALS: BP 142/82; PULSE 98; RESP 16; TEMP 36.5; O2SAT 96; BMI 46.1
[2019-01-30] MEDS: proCHLORPERazine 10 MG/2 ML Vial IV (13:42)
[2019-01-30] MEDS: Ketorolac 30 MG/ML Syringe IV (13:42)
[2019-01-30] MEDS: DiphenhydrAMINE 50 MG/ML Syringe 25 MG IV (13:42)
[2019-01-30] MEDS: 0.9% Normal Saline 1,000 ML 999 ML IV (13:42)
--- NOTE | 2019-01-30 14:17 | ED.DCSUM_ITS ---
- ER Visit Summary Date of Service: 01/30/19 Chief Complaint: Migraine headache History of Present Illness: The patient is a 43 F who presents the emergency department with a right sided throbbing migraine. Patient states that is been present for about a week. Is been progressive in nature. She has a history of migraines and normally takes Imitrex and Aleve but this did not resolve her symptoms. She reports a recent right-sided otitis media for which she took Omnicef and though her symptoms there have resolved. She notes nausea but no vomiting. She denies any fevers. No rashes. No stiff neck. She notes some light sensitivity. Physical Examination: Afebrile vital signs are stable Gen: Well-nourished well-developed Head: Normocephalic atraumatic Eyes: Perrl EOMI negative funduscopic ENT: TMs clear no rhinorrhea moist mucous membranes Neck: Supple no lymphadenopathy no JVD nontender CVS: Regular rate rhythm no murmurs normal S1-S2 Respiratory: No distress clear to auscultation bilaterally chest nontender Abdomen: Soft nontender nondistended normal bowel sounds no masses Back: Nontender Extremity: Nontender no edema Skin: Normal color no rash Neuro: alert orientated ?3 CN II-XII intact normal strength sensation reflexes gait cerebellar Psych: Normal affect normal mood Emergency Department Course and Treatment: Patient received IV fluids Toradol Compazine and Benadryl. Repeat examination finds the patient to be improved. Impression: 1. Migraine headache This note was generated with [employer] dictation software. It may contain incorrect words, spelling, and punctuation that were not noted in review of the chart prior to signing ED Disposition - Plan for ED Patient: Disposition: Home or Assisted Living Instructions: ED Headache Migraine Referrals: Horace Paniagua III, MD [Primary Care Provider] - As Needed
[2019-01-30 14:50] VITALS: BP 140/76; PULSE 94; RESP 16; O2SAT 96
== END 2019-01-30 14:58 | disposition home or self-care (01) ==
PROVIDERS: Emergency Provider Emergency Medicine; Family Provider Family Medicine; PCP Family Medicine
DX: G43.909 Migraine, unspecified, not intractable, without status migrainosus (principal)
CPT/HCPCS: 99283; J7030; A4216

== ENCOUNTER 2019-02-01 18:33 | Emergency (ER) | payer BC, SELFPAY ==
[2019-02-01 18:34] VITALS: BP 143/66; PULSE 102; RESP 17; TEMP 36.5; O2SAT 95; BMI 45.1
[2019-02-01 20:29] VITALS: RESP 16
--- NOTE | 2019-02-01 20:45 | CT_ITS ---
STUDY: CT BRAIN WITHOUT CONTRAST REASON FOR EXAM: Female, 43 years old. Migraine headaches RADIATION DOSAGE (If Supplied By Facility): CTDIvol = ( 44.99 ) mGy, DLP = ( 745.49 ) mGycm TECHNIQUE: Transaxial CT imaging of the brain was performed without administration of intravenous contrast material. Individualized dose optimization techniques were used for this CT. COMPARISON: July 18, 2018. FINDINGS: Normal soft tissue structures. Normal calvarium. Normal size ventricles and extra-axial spaces for the patient's age. Normal white matter tracts of the cerebral hemispheres. Normal basal ganglia and thalami. Normal brainstem. Normal cerebellum. There is no intracranial hemorrhage. There are no findings of an acute ischemic infarction. Normal visualized paranasal sinuses. CT/Brain/Head without Contrast IMPRESSION: Normal unenhanced CT scan of the brain. Electronically Signed: Booker Zhang MD at 21:34 EDT , Service support ,
[2019-02-01] MEDS: Ketorolac 30 MG/ML Syringe IV (21:04)
[2019-02-01] MEDS: 0.9% Normal Saline 1,000 ML 1000 ML IV (21:04)
[2019-02-01] MEDS: DiphenhydrAMINE 50 MG/ML Syringe IV (21:04)
[2019-02-01] MEDS: proCHLORPERazine 10 MG/2 ML Vial IV (21:04)
[2019-02-01 21:07] LABS: Absolute Lymphocyte Count 2.29 X10^3/ul (0.83-4.51); Absolute Neutrophil Count 4.8 X10^3/uL (2.0-7.7); Basophil# 0.03 X10^3/uL; Basophil% 0.4 % (0-1); Eosinophil# 0.11 X10^3/uL; Eosinophils% 1.4 % (0-5); Hematocrit 41.1 % (37-47); Hemoglobin 14.2 g/dl (12.0-15.0); Lymphocyte # 2.29 X10^3/ul (4.0); Lymphocyte % 29.7 % (19-41); Mean Corp Hgb Conc 34.5 g/gl (32-36); Mean Corpuscular Hgb 30.9 pg (27.0-32.0); Mean Corpuscular Volume 89.3 fL (81-99); Mean Platelet Vol. 10.4 fl (6.2-12.0); Monocyte# 0.45 X10^3/uL; Monocyte% 5.8 % (0-10); Neutrophil # 4.83 X10^3/uL (2.7-7.7); Neutrophil % 62.6 % (47-70); Platelet Count 209 K/mm3 (150-450); RBC Distribution Width CV 12.3 % (11.6-14.6); RBC Distribution Width SD 39.5 fl (35.1-43.9); White Blood Count 7.7 K/mm3 (4.4-11.0)
[2019-02-01 21:17] LABS: AST(SGOT) 18 U/L (15-37); Alanine Aminotransfer ALT/SGPT 46 U/L (13-56); Albumin, Serum 3.5 g/dL (3.2-5.0); Alkaline Phosphatase 69 U/L (45-117); Anion Gap 7 (5-15); BUN 11 mg/dL (7-18); BUN/Creat Ratio 11.8 RATIO (10-20); Calcium,Total 9.5 mg/dL (8.5-10.1); Chloride 100 mmol/L (98-107); Creatinine, Serum 0.93 mg/dL (0.55-1.02); EST Glomerular Filtration Rate 70 mL/min (>60); Est Glom Filt Rate - Afr Amer 85 mL/min (>60); Estimated Creatinine Clearance 68.74 ml/min; Globulin 3.5 g/dL (2.2-4.2); Glucose 140 mg/dL (74-106); Potassium 3.7 mmol/L (3.5-5.1); Sodium Level 136 mmol/L (136-145)
[2019-02-01 21:23] LABS: POSITIVE COUNT NO; POSITIVE DIFFERENTIAL NO; POSITIVE MORPHOLOGY NO
[2019-02-01 21:23] LABS: Bacteria 0 SEEN /hpf (None Seen); Mucous, Urine 0 SEEN /hpf (<or=2+); White Blood Cells 0 SEEN /hpf (0-5)
--- NOTE | 2019-02-01 21:41 | ED.VISSUMM ---
- ER Visit Summary Date of Service: 02/01/19 Chief Complaint: Headache History of Present Illness: The patient is a [address] Horace Paniagua III. She reports that she has a headache that began approximately 1 week ago. Is gradually gotten worse. Is a sharp pain in right side of her neck and right occipital region. States that is 10 out of 10 at worst 9-10 currently. Is worsened by swallowing or turning her head to the right. She is taking Imitrex with minimal relief. She has had nausea, but no vomiting. No change in her vision. She does have photophobia. She denies any recent injury to her head. She has not had a fever. Patient reports that she was seen in the emergency department 2 days ago with this and given Toradol, Compazine, and Benadryl IV and her headache resolved. However, it returned the next day. She is not on blood thinners. Physical Examination: Vitals: Stable. Afebrile. General: Well-nourished and well-developed. Head: Normocephalic atraumatic. Neck: Supple, no lymphadenopathy. No JVD. Nontender. Cardiovascular: Regular rate and rhythm. No murmurs. Respiratory: No respiratory distress. Clear to auscultation bilaterally. Abdominal: Soft, mild periumbilical tenderness to palpation, nondistended, normal bowel sounds. No guarding, rebound, or peritoneal signs. Back: Nontender. Extremities: Nontender, no edema. Skin: Normal color, no rash. Neurologic: Alert and oriented ?3. Cranial nerves II through XII are intact. Normal strength and sensation. Psych: Normal affect. Test Results: CT brain is normal. CBC is normal. Chem-7 shows a glucose of 140. LFTs are normal. UA is normal. Emergency Department Course and Treatment: Patient was treated with Toradol, Compazine, Benadryl, dexamethasone IV. She is resting comfortably. Treatment Plan: Patient will be discharged instructions follow-up Dr. Camarillo in 1-2 days if not improving. She is instructed to push fluids. Use Tylenol and/or ibuprofen for pain. Return to the emergency department for any worsening symptoms. Disposition: To home in improved and stable condition. Impression: 1. Cephalgia. 2. Abdominal pain, uncertain cause. This note was generated with [employer] software. It may contain incorrect words, spelling, and punctuation that were not noted in review of the chart prior to signing ED Disposition - Plan for ED Patient: Disposition: Home or Assisted Living Instructions: ED Cephalgia Unspecified Referrals: Horace Paniagua III, MD [Primary Care Provider] - 1-2 Days if not improving
[2019-02-01 21:46] LABS: Color, Urine Yellow (Yellow); Glucose, Dipstick Normal (Normal); Ketone-Dipstick Negative (Negative); Leukocyte Esterase-Dipstick Negative /ul (Negative); Nitrite-Dipstick Negative (Negative); Occult Blood-Urine Negative /ul (Negative); Protein-Dipstick Negative (Negative); Urine Bilirubin Dipstick Negative (Negative); Urine Clarity Clear (Clear); Urine Urobilinogen Normal (Normal)
[2019-02-01 22:00] VITALS: BP 135/68; PULSE 90; RESP 15; O2SAT 93
[2019-02-01 22:05] LABS: Red Blood Cells-Urine 0-5 SEEN /hpf (0-5); Squamous Epithelial Cells - UA 0-5 SEEN /hpf (5-10)
[2019-02-01 22:09] VITALS: BP 135/68; PULSE 68; RESP 16; O2SAT 95
== END 2019-02-01 22:12 | disposition home or self-care (01) ==
PROVIDERS: Emergency Provider Emergency Medicine; Family Provider Family Medicine; PCP Family Medicine
DX: R10.9 Unspecified abdominal pain (principal); R11.0 Nausea; R19.7 Diarrhea, unspecified; I10 Essential (primary) hypertension; D68.51 Activated protein C resistance; Z86.711 Personal history of pulmonary embolism
CPT/HCPCS: 70450; 80053; 81001; 85025; 99285; J7030; A4216

== ENCOUNTER → 2019-02-09 07:40 | Outpatient (CLI) | payer BC, SELFPAY ==
[2019-02-01 18:34] VITALS: BMI 45.1
--- NOTE | 2019-02-09 07:41 | BI_ITS ---
MAMMOGRAPHY - BILATERAL SCREENING 3-D TOMOSYNTHESIS REASON FOR EXAM: Female, 43 years old. Bilateral Screening 3-D tomosynthesis PERTINENT HISTORY: Maternal aunt history. TECHNIQUE: 2-D mammograms and 3-D Tomosynthesis of the breast (s) were performed. CAD was performed. COMPARISON: 08/21/2017 FINDINGS: The breast composition is composed of scattered fibroglandular density. Scattered benign calcifications are seen. No dense spiculated masses or suspicious microcalcifications are identified. No architectural distortion is identified. There is no skin thickening or retraction. There has been no significant change since the prior study. BI/SCREENING MAMM (CAD), BILAT IMPRESSION: No mammographic signs of malignancy. Routine yearly mammograms recommended. ASSESSMENT CATEGORY: BIRADS Category 1: Negative. A letter regarding these results will be sent to the patient by the facility within 30 days. FOLLOW UP RECOMMENDATION: Yearly follow up mammogram recommended. (A) Approximately 10% of breast cancers are not detected by mammography. A normal mammogram should not delay biopsy of a clinically suspicious abnormality. Electronically Signed: Jak Addison MD at 9:49 EDT , Service support ,
== END ==
PROVIDERS: Family Provider Family Medicine; PCP Family Medicine; Referring Provider Obstetrics & Gynecology; Visit Provider Obstetrics & Gynecology
DX: Z12.31 Encounter for screening mammogram for malignant neoplasm of breast (principal)
CPT/HCPCS: 77063; 77067

== ENCOUNTER → 2019-07-20 12:31 | Outpatient (CLI) | payer BC, SELFPAY ==
--- NOTE | 2019-07-20 12:40 | MRI_ITS ---
STUDY: MRI RIGHT SHOULDER REASON FOR EXAM: Female, 44 years old. Shoulder pain TECHNIQUE: Standardized fat and water weighted pulse sequences were obtained in all 3 orthogonal planes. COMPARISON: None. FINDINGS: Moderate supraspinatus and infraspinatus tendinosis and peritendinitis is but no macro tear or muscular atrophy. Normal subscapularis tendon. Normal teres minor tendon. Normal supraspinatus muscle. Normal infraspinatus muscle. Normal subscapularis muscle. Normal teres minor muscle. Normal glenohumeral articulation. Normal humeral head and visualized proximal humerus. Normal biceps labral complex. Normal intracapsular long biceps tendon. There is labral degeneration with areas of fraying, but there is no demonstrated discrete labral tear. Normal capsulo- ligamentous complex. Normal rotator interval. There is mild osteoarthritis of the acromioclavicular articulation. There is a Type II morphology (curved), with a neutral orientation. There is no subacromial-subdeltoid bursal fluid. Normal visualized coracohumeral and coracoacromial ligaments. Normal quadrilateral space. Normal axillary space. Normal deltoid muscle. Normal trapezius muscle. MRI/Upper Ext Joint Only(Routine) IMPRESSION: Moderate supraspinatus and infraspinatus tendinosis and peritendinitis is but no macro tear or muscular atrophy. Electronically Signed: Adolfo Santiago MD at 16:24 EDT Tel , Service support ,
== END ==
PROVIDERS: Family Provider Family Medicine; PCP Family Medicine; Referring Provider Physician Assistant; Visit Provider Physician Assistant
DX: M25.511 Pain in right shoulder (principal)
CPT/HCPCS: 73221

== ENCOUNTER 2019-07-30 18:35 | Emergency (ER) | payer BC, SELFPAY ==
[2019-07-30 18:35] VITALS: BP 163/96; PULSE 98; RESP 16; TEMP 36.7; O2SAT 97; BMI 47.1
[2019-07-30 19:13] LABS: Bacteria 0 SEEN /hpf (None Seen); Mucous, Urine 0 SEEN /hpf (<or=2+); Red Blood Cells-Urine 0 SEEN /hpf (0-5); Squamous Epithelial Cells - UA 0 SEEN /hpf (5-10)
--- NOTE | 2019-07-30 19:20 | CT_ITS ---
STUDY: CT ABDOMEN AND PELVIS WITHOUT CONTRAST REASON FOR EXAM: Female, 44 years old. Left flank pain, painful urination RADIATION DOSAGE (If Supplied By Facility): CTDIvol = ( 23.66 ) mGy, DLP = ( 1259.20 ) mGycm TECHNIQUE: Transaxial images were obtained from the dome of the diaphragm to the symphysis pubis without oral contrast, and without intravenous contrast. Sagittal and coronal images were reconstructed. Individualized dose optimization techniques were used for this CT. COMPARISON: 12/21/2018 FINDINGS: The visualized lung bases are unremarkable. The visualized portions of the heart are within normal limits. There is decreased attenuation of the liver consistent with steatosis. There is non-visualization of the gallbladder, which is likely due to previous cholecystectomy.. Normal spleen. Normal pancreas. Normal bilateral adrenal glands. No obstructive uropathy, there is a nonobstructing stone in the upper pole of the right kidney Normal visualized stomach. Normal small intestine. Normal colon. There is non-visualization of the appendix. Normal abdominal aorta. Normal inferior vena cava. Normal retroperitoneum. Normal urinary bladder. Uterus appears surgically absent. There are cystic structures within the pelvis likely ovarian in origin, the right side measures 6.85 x 6.50 cm left measures 4.35 x 3.34 cm Normal abdominal wall. Normal osseous structures. CT/Abdomen/Pelvis without Cont IMPRESSION: Diffuse fatty infiltration of the liver, no discrete lesion. No obstructive uropathy, nonobstructing right nephrolithiasis Bilateral ovarian cysts No free intraperitoneal fluid, air, or suspicious adenopathy Electronically Signed: Jak Addison MD at 20:24 EDT , Service support ,
[2019-07-30 19:32] LABS: Color, Urine Yellow (Yellow); Glucose, Dipstick Normal (Normal); Ketone-Dipstick Negative (Negative); Leukocyte Esterase-Dipstick Negative /ul (Negative); Nitrite-Dipstick Negative (Negative); Occult Blood-Urine Negative /ul (Negative); Protein-Dipstick Negative (Negative); Specific Gravity, Urine 1.015 (1.002-1.030); Urine Bilirubin Dipstick Negative (Negative); Urine Clarity Clear (Clear); Urine Urobilinogen 1 mg/dl (Normal)
[2019-07-30 19:33] LABS: Internal QC Validated? YES +Cl - CLEAR BKGD; Pregnancy, Serum, hCG Quali. NEGATIVE Negative
[2019-07-30 19:43] LABS: Absolute Lymphocyte Count 2.83 X10^3/uL (0.83-4.51); Absolute Neutrophil Count 7.3 X10^3/uL (2.0-7.7); Basophil# 0.06 X10^3/uL; Basophil% 0.5 % (0-1); Eosinophil# 0.15 X10^3/uL; Eosinophils% 1.4 % (0-5); Hemoglobin 13.7 g/dL (12.0-15.0); Lymphocyte # 2.83 X10^3/ul (4.0); Lymphocyte % 25.9 % (19-41); Mean Corp Hgb Conc 34.3 g/dL (32-36); Mean Corpuscular Hgb 31.1 pg (27.0-32.0); Mean Corpuscular Volume 90.7 fL (81-99); Monocyte# 0.61 X10^3/uL; Monocyte% 5.6 % (0-10); NRBC Flagged by Analyzer 0 % (0-5); Neutrophil # 7.25 X10^3/uL (2.7-7.7); Neutrophil % 66.2 % (47-70); Platelet Count 208 K/mm3 (150-450); RBC Distribution Width CV 11.9 % (11.6-14.6); RBC Distribution Width SD 39.4 fl (35.1-43.9); Red Blood Count 4.41 M/mm3 (4.2-5.4); White Blood Count 10.9 K/mm3 (4.4-11.0)
[2019-07-30 19:45] LABS: White Blood Cells 0-5 SEEN /hpf (0-5)
[2019-07-30] MEDS: 0.9% Normal Saline 1,000 ML 150 ML IV (19:48)
[2019-07-30] MEDS: Ketorolac 15 MG/ML Vial IV (19:48)
[2019-07-30] MEDS: Ondansetron 4 MG/2 ML Vial IV (19:48)
[2019-07-30] MEDS: Morphine 4 MG/ML Syringe IV (19:49)
[2019-07-30 19:53] LABS: Anion Gap 7 (5-15); BUN 17 mg/dL (7-18); BUN/Creat Ratio 19.1 RATIO (10-20); Calcium,Total 8.9 mg/dL (8.5-10.1); Chloride 102 mmol/L (98-107); Creatinine, Serum 0.89 mg/dL (0.55-1.02); EST Glomerular Filtration Rate 74 mL/min (>60); Est Glom Filt Rate - Afr Amer 90 mL/min (>60); Estimated Creatinine Clearance 68.12 ml/min; Glucose 106 mg/dL (74-106); Potassium 3.8 mmol/L (3.5-5.1); Sodium Level 138 mmol/L (136-145)
[2019-07-30 20:33] VITALS: BP 124/53; PULSE 85; RESP 15; O2SAT 96
--- NOTE | 2019-07-30 20:33 | ED.DCSUM_ITS ---
- ER Visit Summary Date of Service: 07/30/19 Chief Complaint: [Left flank pain History of Present Illness: The patient is a 44 F [presents the emergency department with pain in her left flank for the last 3 to 4 days. Patient states the pain is continuous and rates it about an 8 out of 10. She denies any vomiting however she does feel nauseated. She denies any diarrhea. She denies any blood in her stool or black tarry stool. She denies any injury to her back. She denies urinary symptoms other than she has had a little bit of frequency. She denies hematuria. Patient has had history of kidney stones and she states she think she may be trying to pass a kidney stone. Patient also with history o f GERD, factor V Leiden, history of pericarditis, and history of kidney stones. Patient has had prior cholecystectomy.] Physical Examination: [HEENT-PERRLA, EOMI. Cranial nerves II through XII grossly intact. TMs clear. Mucous membranes moist. No adenopathy. Cardiovascular-regular rate and rhythm without murmur or ectopy Lungs-clear to auscultation, chest wall stable without crepitus or subcu emphysema Abdomen-normoactive bowel sounds, soft, nontender, no rebound or rigidity, no peritoneal signs. Back exam-patient does have CVA tenderness on the left. No bony tenderness on exam over the thoracic or lumbar spine. Extremities-intact ?4, normal range of motion, normal pulses, atraumatic] Test Results: [CBC with differential was normal. Chemistries unremarkable. Urinalysis was normal. hCG was negative. CT flank showed no evidence of kidney stones however she did have bilateral small ovarian cyst.] Emergency Department Course and Treatment: [She was medicated with morphine as well as Toradol and Zofran] Treatment Plan: [Will be given a prescription for naproxen, Flexeril and a few [place] for severe pain.] Disposition: [Discharged home in stable condition] Impression: [Left flank pain-etiology uncertain] This note was generated with [employer] dictation software. It may contain incorrect words, spelling, and punctuation that were not noted in review of the chart prior to signing ED Disposition - Plan for ED Patient: Referrals: Horace Paniagua III, MD [Primary Care Provider] -
--- NOTE | 2019-07-30 20:36 | DCINST.ED_ITS ---
ED Disposition - Plan for ED Patient: Instructions: FLANK PAIN, Uncertain Cause Prescriptions: cycloBENZAPRine HCl [Flexeril] 10 mg PO TID PRN #20 tab PRN Reason: Muscle Spasm Prescription Printed Naproxen [Naprosyn] 500 mg PO BID PRN #20 tab Prescription Printed Hydrocodone Bitart/Apap 5-325 [[place] 5MG-325MG] 1 tab PO Q4H PRN PRN 2 Days #10 tab PRN Reason: Pain Prescription Printed Referrals: Horace Paniagua III, MD [Primary Care Provider] - 5-7 Days
== END 2019-07-30 21:10 | disposition home or self-care (01) ==
PROVIDERS: Emergency Provider Emergency Medicine; Family Provider Family Medicine; PCP Family Medicine
DX: R10.9 Unspecified abdominal pain (principal); R11.0 Nausea; R35.0 Frequency of micturition; N83.201 Unspecified ovarian cyst, right side; N83.202 Unspecified ovarian cyst, left side; K21.9 Gastro-esophageal reflux disease without esophagitis; D68.51 Activated protein C resistance; Z87.442 Personal history of urinary calculi; Z86.79 Personal history of other diseases of the circulatory system; Z90.49 Acquired absence of other specified parts of digestive tract; Z79.84 Long term (current) use of oral hypoglycemic drugs; Z79.899 Other long term (current) drug therapy
CPT/HCPCS: 74176; 80048; 81001; 84703; 85025; 96361; 96374; 96375; 99284; J7030; A4216; J2405

== ENCOUNTER 2019-09-08 23:15 | Emergency (ER) | payer BC, SELFPAY ==
[2019-09-08 23:15] VITALS: PULSE 95
[2019-09-08 23:16] VITALS: BP 149/77; PULSE 94; RESP 20; TEMP 36.8; O2SAT 96; BMI 45.9
[2019-09-08 23:19] VITALS: O2SAT 94
--- NOTE | 2019-09-08 23:28 | RAD_ITS ---
HISTORY: General illness x 3 days, coughSOB started today ADDITIONAL HISTORY: None provided. COMPARISON: 12/12/2018, 03/17/2017 TECHNIQUE: Frontal and lateral chest radiographs. Number of images including paperwork: 2 FINDINGS: LUNGS AND PLEURA: No consolidation, mass or pleural effusion. Minimal right middle lobe linear opacity consistent with subsegmental atelectasis versus scarring. CARDIAC SILHOUETTE: Unremarkable. MEDIASTINUM AND SONYA: Aortic tortuosity. UPPER ABDOMEN: Unremarkable. SKELETON AND SOFT TISSUES: No acute findings. OTHER DEVICES AND HARDWARE: None. RAD/Chest PA and Lateral IMPRESSION: Minimal right middle lobe subsegmental atelectasis versus scarring. at 0007 Reported and signed by: Kayla Goldstein MD Electronically Signed: Kayla Goldstein MD at 0:07 EST Tel , Service support ,
--- NOTE | 2019-09-08 23:28 | EKG12_ITS ---
Test Reason : DYSRHYTHMIA Blood Pressure : / mmHG Vent. Rate : 098 BPM Atrial Rate : 098 BPM P-R Int : 134 ms QRS Dur : 072 ms QT Int : 364 ms P-R-T Axes : 025 059 045 degrees QTc Int : 464 ms Normal sinus rhythm Normal ECG Confirmed by HIGINIO ROCHA, RINKU ([id number]), dictionary editor JOSE EDUARDO MEIER ([id number]) on 09/11/2019 9:45:22 AM Referred By: BB Confirmed By:RINKU SYLVESTER MD
--- NOTE | 2019-09-08 23:29 | ED.VIS.DYS ---
History of Present Illness Chief Complaint: Shortness of Breath Informant: Patient Onset: Days - 3 Activity at onset: Unknown - gradual in onset, getting worse Timing: Continuous Quality: Wheezing Current Severity: Mild Maximum Severity: Moderate Worsened by: Coughing, Exertion Relieved by: Albuterol, Rest Associated Symptoms: Cough, Green sputum. Negative for: Sore throat Chest Pain: Tightness Narrative: Patient has had productive cough without hemoptysis for the past several days, and has developed wheezing/shortness of breath with chest tightness, the chest tightness correlates with the wheezing and severity, she has no lateralizing pleuritic thoracic discomfort. No recent leg pain or swelling. She had a pulmonary embolus 10 or 11 years ago that was associated with either a or a surgery, she has been off anticoagulants for a long time, and now takes prophylactic aspirin. She is diagnosed with COPD and states she used to smoke, 2 or 3 packs a day, but she did quit and no longer smokes. She sought urgent care today, received a single albuterol aerosol which did help temporarily, but was given no prescriptions or other medications there. She has been using her albuterol inhaler at home frequently, and is still having chest tightness and wheezing and looking for relief. PE Risk Factors: Prior DVT or PE. Negative for: Cancer, OCP + Smoking + > 35, Recent immobilization, Recent surgery, Recent travel Prior similar symptoms: Yes - w/ copd Recent Illness/Hospitalization: No - Past Medical History (1) Pulmonary embolus Status: Resolved (2) COPD (chronic obstructive pulmonary disease) Status: Chronic (3) Factor V Leiden Status: Chronic (4) Cardiomyopathy Status: Chronic (5) GERD (gastroesophageal reflux disease) Status: Chronic (6) Nephrolithiasis Status: Chronic Past Medical History - Allergies and Home Meds Allergies/Adverse Reactions: Allergies Penicillins Allergy (Verified 09/08/19 23:19) Rash tramadol Allergy (Verified 09/08/19 23:19) Rash Primary Care Physician: Horace Paniagua III, MD [Primary Care Provider] - 1 Week if not improving Surgical History: cholecystectomy, - - bilateral tubal ligation Lives: With Family Smoking Status: Former smoker - Family History Maternal Family History: Family History (Last Reviewed 01/27/18 @ 10:07 by Kayla Benitez) Mother Diabetes Hypertension Cancer Uterine cancer Pancreatitis Father Diabetes Heart disease Hypertension Daughter Hearing loss Family History: Reports: - - uterine cancer, diabetes, kidney stones pancreatitis Paternal Family History: Family History (Last Reviewed 01/27/18 @ 10:07 by Kayla Benitez) Mother Diabetes Hypertension Cancer Uterine cancer Pancreatitis Father Diabetes Heart disease Hypertension Daughter Hearing loss Family History: Reports: - - father has copd,chf, pe Review of Systems General: Reports: Fever, Malaise, Subjective. Denies: Chills, Sweats Eyes: Denies: Visual changes - bilaterally, Diplopia ENT: Reports: Rhinorrhea. Denies: Bilateral ear pain, Sore throat Cardiovascular: Reports: Chest pain. Denies: Palpitations Respiratory: Reports: Dyspnea, Cough, Sputum, Dyspnea on exertion. Denies: Orthopnea Gastrointestinal: Denies: Abdominal pain, Nausea, Vomiting, Diarrhea, Melena, Hematochezia Genitourinary: Denies: Dysuria, Hematuria, Frequency Musculoskeletal: Denies: Back pain, Swelling, Extremity Pain Skin: Denies: Rash, Wounds Neurological: Denies: Headache, Weakness, Numbness Physical Exam Vital Signs/Narrative: Vital Signs Temp Pulse Resp BP Pulse Ox 09/08/19 23:16 98.2 F 94 20 H 149/77 H 96 09/08/19 23:15 95 Inital Vital Signs reviewed: Yes General: Well nourished, Well developed, Obese, No Acute Distress - conversive in full sentences Head: Normocephalic, Atraumatic Eyes: Perrl, EOMI ENT: Moist mucous membranes, No rhinorrhea Neck: Supple, Nontender, No lymphadenopathy, No JVD Cardiovascular: Regular rate, Regular rhythm, No murmurs, Normal S1, Normal S2 Respiratory: No distress, Chest nontender, Wheezing - slight end-expiratory. Negative for: Rales, Rhonchi Abdomen: Soft, Nontender, Nondistended, Normal bowel sounds Back: Nontender, Normal Inspection Extremities: Nontender, No edema. Negative for: Calf Tenderness Skin: Normal color, No rash, No Trauma Neurological: Alert, Oriented x3, Cranial nerves II-XII grossly intact, Normal Strength, Normal Sensation, Normal Gait Psychological: Normal affect, Normal Mood Diagnostic/Tx/Re-eval Chest X-Ray - ED: 2 View, Read by ED Physician, No Acute Disease, No Infiltrates - Rhythm Strip Rhythm Strip: Sinus Rhythm Rate: 98 Ectopy: None - EKG Initial EKG Interpretation: Sinus Rhythm, No Acute Injury Pattern - normal EKG Treatment - Dyspnea: Albuterol, Atrovent, Steroid Repeat Evaluation: Improved With Ambulation: Asymptomatic - Medical Decision Making X-ray shows no acute infiltrates or other acute abnormality. EKG is normal. She has a documented history of a cardiomyopathy which I think is likely unrelated to her current illness and symptoms; there is no echo on record to review these details. Patient feels better after duo nebulizer treatment. With her history of COPD, I think it would be reasonable to prevent bacterial superinfection with broad-spectrum antibiotics and a short course of prednisone. Patient understands that this is likely a viral syndrome and antibiotics may not make her better, but if she feels like she is getting worse to return to the ER for further evaluation. She is comfortable with that plan. ED Disposition - Plan for ED Patient: Disposition: Home or Assisted Living Diagnosis: Acute bronchitis, COPD exacerbation Instructions: BRONCHITIS with Wheezing (Adult), Copd Flare Prescriptions: Azithromycin 250 mg PO DAILY #6 tab Prednisone [Deltasone] 40 mg PO QHS #10 tab Referrals: Horace Paniagua III, MD [Primary Care Provider] - 1 Week if not improving
[2019-09-08 23:32] VITALS: PULSE 97; RESP 18
[2019-09-08] MEDS: Ipratropium/Albuterol Sulfate 3 ML AMPUL.NEB INHALATION (23:32)
[2019-09-08] MEDS: predniSONE 20 MG Tablet 40 MG PO (23:44)
[2019-09-09] VITALS: PULSE 97; RESP 16; O2SAT 100
== END 2019-09-09 00:03 | disposition home or self-care (01) ==
LOC: ED 23:45
PROVIDERS: Emergency Provider Emergency Medicine; Family Provider Family Medicine; PCP Family Medicine
DX: J20.9 Acute bronchitis, unspecified (principal); J44.0 Chronic obstructive pulmonary disease with (acute) lower respiratory infection; J44.1 Chronic obstructive pulmonary disease with (acute) exacerbation; Z87.891 Personal history of nicotine dependence; D68.51 Activated protein C resistance; K21.9 Gastro-esophageal reflux disease without esophagitis
CPT/HCPCS: 71046; 93005; 94640; 99283

== ENCOUNTER 2019-09-10 18:54 | Emergency (ER) | payer BC, SELFPAY ==
[2019-09-10 18:54] VITALS: BP 159/88; PULSE 104; RESP 18; TEMP 35.9; O2SAT 96
[2019-09-10 18:55] VITALS: BP 159/88; PULSE 104; RESP 18; TEMP 35.9; O2SAT 96; BMI 46.5
--- NOTE | 2019-09-10 19:17 | EKG12_ITS ---
Test Reason : SOB Blood Pressure : / mmHG Vent. Rate : 096 BPM Atrial Rate : 096 BPM P-R Int : 140 ms QRS Dur : 076 ms QT Int : 372 ms P-R-T Axes : 016 039 029 degrees QTc Int : 469 ms Normal sinus rhythm Normal ECG Confirmed by HIGINIO ROCHA, RINKU ([id number]), editor magazine JOSE EDUARDO MEIER ([id number]) on 09/13/2019 11:34:57 AM Referred By: MARIA TERESA Confirmed By:RINKU SYLVESTER MD
--- NOTE | 2019-09-10 19:21 | RAD_ITS ---
STUDY: X-RAY CHEST REASON FOR EXAM: Female, 44 years old. Shortness of breath TECHNIQUE: Single AP portable view of the chest. COMPARISON: 09/08/2019 FINDINGS: The lungs are clear and expanded. There is no demonstrated pleural abnormality. Normal size heart. Normal mediastinum and jessi. Normal visualized pulmonary arteries. Normal visualized aortic arch and descending thoracic aorta. Normal visualized thoracic spine. Normal visualized ribs, clavicles, and shoulders. There is no demonstrated abnormality of the visualized soft tissue structures of the upper abdomen. RAD/Chest 1 View (Portable) IMPRESSION: Normal x-ray examination of the chest. Electronically Signed: Seth Cordero DO at 19:45 EST Tel , Service support ,
--- NOTE | 2019-09-10 20:40 | CT_ITS ---
STUDY: CTA CHEST REASON FOR EXAM: Female, 44 years old. Shortness of breath and coughing RADIATION DOSAGE (If Supplied By Facility): CTDIvol = ( 16.02 ) mGy, DLP = ( 502.06 ) mGycm TECHNIQUE: The examination was performed with the intravenous administration of IV 100mL [id number]-[id number] 100ML. Post-processing of the angiographic images was performed, with multiplanar reformation and 3D reconstruction. Individualized dose optimization techniques were used for this CT. COMPARISON: March 17, 2017 FINDINGS: Normal enhancement of the main pulmonary artery and right and left pulmonary arteries. Normal enhancement of the bilateral peripheral pulmonary arteries. There is no demonstrated pulmonary embolism. Normal thoracic aorta and visualized great vessels. There is no demonstrated aortic dissection. Normal heart and pericardium. Normal mediastinum. Normal hilar regions. Normal visualized trachea and bronchi. The lungs are well expanded. Normal pulmonary parenchyma. Normal pleura. Stable right pleural-based nodule in the upper lobe and stable nodule in the left lower lobe Normal chest wall structures. Normal osseous structures. Normal visualized upper abdomen. CT/CTA Chest W/WO Contrast IMPRESSION: Normal CTA chest examination, without a demonstrated pulmonary embolism or arterial dissection. Lungs are clear. Electronically Signed: Seth Cordero DO at 22:29 EST Tel , Service support ,
[2019-09-10 20:55] VITALS: PULSE 108; RESP 20
[2019-09-10] MEDS: Ipratropium/Albuterol Sulfate 3 ML AMPUL.NEB INHALATION (20:55)
[2019-09-10 21:07] VITALS: O2SAT 96
[2019-09-10 21:08] VITALS: RESP 16
[2019-09-10 21:09] LABS: Absolute Lymphocyte Count 2.46 X10^3/uL (0.83-4.51); Absolute Neutrophil Count 4.8 X10^3/uL (2.0-7.7); Basophil# 0.06 X10^3/uL; Basophil% 0.7 % (0-1); Eosinophil# 0.23 X10^3/uL; Eosinophils% 2.9 % (0-5); Hematocrit 37.1 % (37-47); Hemoglobin 12.9 g/dL (12.0-15.0); Lymphocyte # 2.46 X10^3/ul (4.0); Lymphocyte % 30.5 % (19-41); Mean Corp Hgb Conc 34.8 g/dL (32-36); Mean Corpuscular Hgb 31.5 pg (27.0-32.0); Mean Corpuscular Volume 90.7 fL (81-99); Mean Platelet Vol. 10.6 fl (6.2-12.0); Monocyte# 0.52 X10^3/uL; Monocyte% 6.5 % (0-10); NRBC Flagged by Analyzer 0 % (0-5); Neutrophil # 4.76 X10^3/uL (2.7-7.7); Platelet Count 204 K/mm3 (150-450); RBC Distribution Width CV 12.1 % (11.6-14.6); RBC Distribution Width SD 40.1 fl (35.1-43.9); Red Blood Count 4.09 M/mm3 (4.2-5.4); White Blood Count 8.1 K/mm3 (4.4-11.0)
[2019-09-10 21:20] LABS: Anion Gap 7 (5-15); BUN 13 mg/dL (7-18); BUN/Creat Ratio 14.1 RATIO (10-20); Calcium,Total 8.7 mg/dL (8.5-10.1); Chloride 107 mmol/L (98-107); Creatinine, Serum 0.92 mg/dL (0.55-1.02); EST Glomerular Filtration Rate 71 mL/min (>60); Est Glom Filt Rate - Afr Amer 85 mL/min (>60); Estimated Creatinine Clearance 68.79 ml/min; Glucose 191 mg/dL (74-106); Potassium 3.8 mmol/L (3.5-5.1); Sodium Level 141 mmol/L (136-145)
[2019-09-10] MEDS: Ondansetron 4 MG/2 ML Vial IV (22:51)
[2019-09-10 23:07] VITALS: PULSE 92; RESP 16; O2SAT 93
--- NOTE | 2019-09-10 23:48 | ED.VISSUMM ---
- ER Visit Summary Date of Service: 09/10/19 Chief Complaint: Shortness of breath History of Present Illness: The patient is a 44 F who presents with shortness of breath that is been getting worse over the past 4 days. Patient states her breathing is worse when she lays flat and when she moves. Patient states she does have some pressure in her upper chest. Patient admits to subjective chills. Patient admits to a cough but denies any sputum production. Patient states she does have episodes where she feels her heart racing. 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 Physical Examination: Vital signs are stable. Patient is afebrile. Patient is in no acute distress. Oral mucosa is pink and moist. Neck is supple. Trachea is midline. There is no JVD. Heart was regular rate and rhythm. Lungs are clear and equal bilaterally. Abdomen is soft and nontender. Cranial nerves II through XII are intact. There are no focal motor or sensory deficits noted. Tremors are intact. There is no calf tenderness or edema noted. Test Results: Portable chest x-ray does not show any acute cardiopulmonary process. This was interpreted by the radiologist myself. EKG showed normal sinus rhythm with a rate of 96. There are no acute ST or T wave changes. This is unchanged compared to previous EKG dated 12/12/2018. CBC and basic metabolic profile were within normal limits. Due to her history of PE and factor V deficiency, CTA of the chest was obtained. There is no evidence of pulmonary embolism. Emergency Department Course and Treatment: Patient was given a DuoNeb aerosol here. Patient was also given Zofran for nausea. Patient was feeling better on reevaluation. Patient was advised of her results. Patient was instructed to follow-up with her primary care physician in 5 to 7 days. Patient understood and was agreeable with the plan. All questions were answered. Disposition: Discharge home Impression: Dyspnea This note was generated with [employer] dictation software. It may contain incorrect words, spelling, and punctuation that were not noted in review of the chart prior to signing ED Disposition - Plan for ED Patient: Disposition: Home or Assisted Living Diagnosis: Dyspnea Instructions: ED Dyspnea Referrals: Horace Paniagua III, MD [Primary Care Provider] - 3-5 Days
[2019-09-11 00:12] VITALS: BP 124/68; PULSE 92; RESP 18; O2SAT 93
== END 2019-09-11 00:14 | disposition home or self-care (01) ==
PROVIDERS: Emergency Provider Emergency Medicine; Family Provider Family Medicine; PCP Family Medicine
DX: R06.00 Dyspnea, unspecified (principal); R07.89 Other chest pain; Z86.711 Personal history of pulmonary embolism; D68.2 Hereditary deficiency of other clotting factors; R05 Cough
CPT/HCPCS: 71045; 71275; 80048; 85025; 93005; 94640; 94760; 96374; 99285; Q9967; A4216; J2405

== ENCOUNTER → 2019-11-13 08:27 | Outpatient (CLI) | payer BC, SELFPAY ==
--- NOTE | 2019-11-13 08:28 | US_ITS ---
STUDY: ULTRASOUND OF THE FEMALE PELVIS - COMPLETE REASON FOR EXAM: Female, 44 years old. Pelvic pain LMP: The patient is posthysterectomy. TECHNIQUE: Transabdominal and Transvaginal TECHNICAL QUALITY: Adequate. COMPARISON: Comparison is made with prior ultrasound dated January 24, 2018. FINDINGS: The patient is status post hysterectomy. The right ovary is visualized. The right ovary measures 4 cm x 3.3 cm x 3.7 cm. There is no right ovarian cyst or ovarian mass. There is no visualized right adnexal mass or complex lesion. There is normal arterial and normal venous vascularity. The left ovary is visualized. The left ovary measures 5.4 cm x 3.6 cm x 4.4 cm. There is a 2.9 cm x 2.9 cm x 2.7 cm cyst in the left ovary. A septation within it. There is no visualized left adnexal mass or complex lesion. There is normal arterial and normal venous vascularity. There is no fluid in the cul-de-sac. The pre void volume of the bladder was 85 ml. Polycystic ovary disease: No. US/Transvaginal Non- IMPRESSION: Status post hysterectomy. 2.9 cm x 2.9 cm x 2.7 cm cyst in the left ovary with a septation. Follow-up sonogram is recommended. Electronically Signed: Santhosh Morse, at 13:39 EST , Service support ,
--- NOTE | 2019-11-13 08:28 | US_ITS ---
STUDY: ULTRASOUND OF THE FEMALE PELVIS - COMPLETE REASON FOR EXAM: Female, 44 years old. Pelvic pain LMP: The patient is posthysterectomy. TECHNIQUE: Transabdominal and Transvaginal TECHNICAL QUALITY: Adequate. COMPARISON: Comparison is made with prior ultrasound dated January 24, 2018. FINDINGS: The patient is status post hysterectomy. The right ovary is visualized. The right ovary measures 4 cm x 3.3 cm x 3.7 cm. There is no right ovarian cyst or ovarian mass. There is no visualized right adnexal mass or complex lesion. There is normal arterial and normal venous vascularity. The left ovary is visualized. The left ovary measures 5.4 cm x 3.6 cm x 4.4 cm. There is a 2.9 cm x 2.9 cm x 2.7 cm cyst in the left ovary. A septation within it. There is no visualized left adnexal mass or complex lesion. There is normal arterial and normal venous vascularity. There is no fluid in the cul-de-sac. The pre void volume of the bladder was 85 ml. Polycystic ovary disease: No. US/Pelvic (Non ) IMPRESSION: Status post hysterectomy. 2.9 cm x 2.9 cm x 2.7 cm cyst in the left ovary with a septation. Follow-up sonogram is recommended. Electronically Signed: Santhosh Morse, at 13:39 EST , Service support ,
== END ==
PROVIDERS: PCP Family Medicine; Referring Provider Obstetrics & Gynecology; Visit Provider Obstetrics & Gynecology
DX: R10.2 Pelvic and perineal pain (principal)
CPT/HCPCS: 76830; 76856; 93976

== ENCOUNTER 2019-11-15 18:09 | Emergency (ER) | payer BC, SELFPAY ==
[2019-11-15 13:54] VITALS: BMI 44.9
[2019-11-15 18:10] VITALS: BP 138/95; PULSE 99; RESP 15; TEMP 37.1; O2SAT 99; BMI 45.0
--- NOTE | 2019-11-15 18:48 | CT_ITS ---
STUDY: CT ABDOMEN AND PELVIS WITHOUT CONTRAST REASON FOR EXAM: Female, 44 years old. Left flank pain. History of kidney stones. History of cholecystectomy and hysterectomy. RADIATION DOSAGE (If Supplied By Facility): CTDIvol = ( 23.72 ) mGy, DLP = ( 1327.66 ) mGycm TECHNIQUE: Transaxial images were obtained from the dome of the diaphragm to the symphysis pubis without oral contrast, and without intravenous contrast. Sagittal and coronal images were reconstructed. Individualized dose optimization techniques were used for this CT. COMPARISON: July 30, 2019. FINDINGS: The visualized lung bases are unremarkable. The visualized portions of the heart are within normal limits. There is diffuse fatty infiltration of the enlarged liver. There is no focal mass. The gallbladder is absent. There is no biliary ductal dilatation. Normal spleen. Normal pancreas. Normal bilateral adrenal glands. There is 2 to 3 mm calcification in the lower pole calyx of an otherwise normal right kidney. Normal visualized right ureter. Normal left kidney. Normal visualized left ureter. Normal visualized stomach. Normal small intestine. Normal colon. The appendix is visualized and appears normal. Normal abdominal aorta. Normal inferior vena cava. Normal retroperitoneum. Normal urinary bladder. Status post hysterectomy. The vaginal cuff is normal. There is a retained left ovary along left pelvic sidewall containing a 3.4 x 2.5 x 3.0 cm cyst. Normal retained right ovary. There is no pelvic lymphadenopathy. No free air or free fluid is seen within the peritoneal cavity. Normal abdominal wall. Normal osseous structures. CT/Abdomen/Pelvis without Cont IMPRESSION: 1. Enlarged fatty infiltrated liver without change from the prior study. 2. Stable right renal cysts. 3. Stable left ovarian cysts. The largest right ovarian cyst, noted on the prior study, is no longer seen. 4. No other major change in findings. Electronically Signed: Oni Contreras DO at 19:22 EST Tel [phone], Service support ,
[2019-11-15] MEDS: 0.9% Normal Saline 1,000 ML 250 ML IV (18:57)
[2019-11-15 18:58] LABS: Absolute Lymphocyte Count 2.52 X10^3/uL (0.83-4.51); Basophil# 0.06 X10^3/uL; Basophil% 0.6 % (0-1); Eosinophil# 0.15 X10^3/uL; Eosinophils% 1.6 % (0-5); Hematocrit 40.8 % (37-47); Lymphocyte # 2.52 X10^3/ul (4.0); Lymphocyte % 27.2 % (19-41); Mean Corp Hgb Conc 34.3 g/dL (32-36); Mean Corpuscular Hgb 31.2 pg (27.0-32.0); Mean Corpuscular Volume 90.9 fL (81-99); Mean Platelet Vol. 10.7 fl (6.2-12.0); Monocyte# 0.49 X10^3/uL; Monocyte% 5.3 % (0-10); NRBC Flagged by Analyzer 0 % (0-5); Neutrophil # 6.02 X10^3/uL (2.7-7.7); Platelet Count 225 K/mm3 (150-450); RBC Distribution Width CV 11.9 % (11.6-14.6); RBC Distribution Width SD 39.1 fl (35.1-43.9); Red Blood Count 4.49 M/mm3 (4.2-5.4); White Blood Count 9.3 K/mm3 (4.4-11.0)
[2019-11-15] MEDS: Ondansetron 4 MG/2 ML Vial IV (18:58)
[2019-11-15] MEDS: Ketorolac 30 MG/ML Syringe IV (18:58)
[2019-11-15 19:12] LABS: Anion Gap 6 (5-15); BUN 11 mg/dL (7-18); Chloride 100 mmol/L (98-107); EST Glomerular Filtration Rate 65 mL/min (>60); Est Glom Filt Rate - Afr Amer 78 mL/min (>60); Estimated Creatinine Clearance 63.28 ml/min; Glucose 162 mg/dL (74-106); Potassium 3.1 mmol/L (3.5-5.1); Sodium Level 137 mmol/L (136-145)
[2019-11-15 19:29] LABS: Bacteria 0 SEEN /hpf (None Seen); Mucous, Urine 0 SEEN /hpf (<or=2+); Red Blood Cells-Urine 0 SEEN /hpf (0-5); Squamous Epithelial Cells - UA 0 SEEN /hpf (5-10); White Blood Cells 0 SEEN /hpf (0-5)
[2019-11-15 19:35] LABS: Color, Urine Yellow (Yellow); Glucose, Dipstick Normal (Normal); Ketone-Dipstick Negative (Negative); Leukocyte Esterase-Dipstick Negative /ul (Negative); Nitrite-Dipstick Negative (Negative); Occult Blood-Urine Negative /ul (Negative); Protein-Dipstick Negative (Negative); Specific Gravity, Urine 1.015 (1.002-1.030); Urine Bilirubin Dipstick Negative (Negative); Urine Clarity Sl. Cloudy (Clear); Urine Urobilinogen Normal (Normal); Urine pH 6.5 (5.0 - 8.0)
--- NOTE | 2019-11-15 20:08 | CT_ITS ---
STUDY: CT ABDOMEN AND PELVIS WITHOUT CONTRAST REASON FOR EXAM: Female, 44 years old. Abdominal pain. Concern for renal infarct. RADIATION DOSAGE (If Supplied By Facility): CTDIvol = ( 18.34 ) mGy, DLP = ( 2653.69 ) mGycm TECHNIQUE: Transaxial images were obtained from the dome of the diaphragm to the symphysis pubis without oral contrast, and without intravenous contrast. Sagittal and coronal images were reconstructed. Individualized dose optimization techniques were used for this CT. COMPARISON: CT of the abdomen and pelvis without contrast, November 15, 2019 (1907 hours) FINDINGS: The visualized lung bases are unremarkable. The visualized portions of the heart are within normal limits. Again seen is diffuse fatty infiltration of liver without focal mass. Gallbladder is not visualized. Normal spleen. Normal pancreas. Normal bilateral adrenal glands. Again seen is a small calcification lower pole right kidney. The right kidney demonstrates normal contrast enhancement and excretion. There is no evidence of cortical abnormality to suggest infarct. Normal right ureter. The left kidney demonstrates normal contrast enhancement and excretion without evidence to suggest infarct. Normal left ureter. Normal visualized stomach. Normal small intestine. Normal colon. The appendix is visualized and appears normal. Normal abdominal aorta. Normal inferior vena cava. Normal retroperitoneum. Normal urinary bladder. Uterus is absent. Again seen is the cyst in the left retained ovary with normal right retained ovary. No pelvic lymphadenopathy. No free air or free fluid is seen within the peritoneal cavity. There is a small umbilical hernia containing fat. Macroglossia CT/Abdomen/Pelvis W IV Cont ONLY IMPRESSION: 1. Normal enhancement and contrast excretion by the kidneys. There is no evidence of mass or infarction. 2. No other major interval change from a study performed approximately 90 minutes earlier. Electronically Signed: Oni Contreras DO at 20:56 EST Tel [phone], Service support ,
--- NOTE | 2019-11-15 21:09 | ED.DCSUM_ITS ---
History of Present Illness Chief Complaint: Flank Pain Narrative: Patient present for the evaluation of left flank pain. Patient states that it feels very similar to her prior kidney stones. She has required ureteral stents in the past. She states she went to urgent care and they checked her urine and told her there was blood in it. Therefore they recommended coming to the emergency department. She notes nausea. No bowel symptoms. No fevers. History of ovarian cyst. Past Medical History - Allergies and Home Meds Allergies/Adverse Reactions: Allergies Penicillins Allergy (Verified 11/15/19 18:14) Rash tramadol Allergy (Verified 11/15/19 18:14) Rash Primary Care Physician: Horace Paniagua III, MD [Primary Care Provider] - 1-2 Days if not improving Surgical History: cholecystectomy, - - bilateral tubal ligation Smoking Status: Former smoker - Family History Maternal Family History: Family History (Last Updated 11/15/19 @ 13:54 by Samira Seo) Mother Diabetes Hypertension Cancer Uterine cancer Pancreatitis Father Diabetes Heart disease Hypertension Daughter Hearing loss Other CVA (cerebral vascular accident) Gout Family History: Reports: - - uterine cancer, diabetes, kidney stones pancreatitis Paternal Family History: Family History (Last Updated 11/15/19 @ 13:54 by Samira Seo) Mother Diabetes Hypertension Cancer Uterine cancer Pancreatitis Father Diabetes Heart disease Hypertension Daughter Hearing loss Other CVA (cerebral vascular accident) Gout Family History: Reports: - - father has copd,chf, pe Review of Systems General: Denies: Chills, Fever, Sweats Eyes: Denies: Visual changes - bilaterally, Diplopia ENT: Denies: Rhinorrhea, Sore throat Cardiovascular: Denies: Chest pain, Palpitations Respiratory: Denies: Dyspnea, Cough, Dyspnea on exertion Gastrointestinal: Reports: - - Left flank pain. Denies: Abdominal pain, Nausea, Vomiting, Diarrhea, Melena, Hematochezia Genitourinary: Denies: Dysuria, Hematuria, Frequency Musculoskeletal: Denies: Back pain, Extremity Pain Skin: Denies: Rash, Wounds Neurological: Denies: Headache, Weakness, Numbness Physical Exam Vital Signs/Narrative: Vital Signs Temp Pulse Resp BP Pulse Ox 11/15/19 18:10 98.7 F 99 15 138/95 H 99 Inital Vital Signs reviewed: Yes General: Well nourished, Well developed, Obese, No Acute Distress Head: Normocephalic, Atraumatic Eyes: Perrl, EOMI ENT: Moist mucous membranes, No rhinorrhea Neck: Supple, Nontender Cardiovascular: Regular rate, Regular rhythm, No murmurs Respiratory: No distress, CTA bilaterally, Chest nontender Abdomen: Soft, Nontender, Nondistended, Normal bowel sounds Back: Nontender, Normal Inspection, CVA tenderness - left Extremities: Nontender, No edema Skin: Normal color, No rash Neurological: Alert, Oriented x3, Cranial nerves II-XII grossly intact, Normal Strength, Normal Sensation Psychological: Normal affect, Normal Mood Diagnostic/Tx/Re-eval - Medical Decision Making Basic labs did not demonstrate any hematuria. Normal white count. Flank CT did not demonstrate any ureterolithiasis or hydronephroureter. Because the patient continued to have pain a CT of the abdomen pelvis with IV contrast was performed to evaluate for splenic or renal infarct. This was also negative. Patient will be discharged home with follow-up in 24 to 48 hours if not improving. ED Disposition - Plan for ED Patient: Disposition: Home or Assisted Living Diagnosis: Left flank pain Instructions: FLANK PAIN, Uncertain Cause Prescriptions: Hydrocodone Bitart/Apap 5-325 [Barnhart 5MG-325MG] 1 tab PO Q6H PRN PRN 3 Days #10 tab PRN Reason: Pain Prescription Printed Referrals: Horace Paniagua III, MD [Primary Care Provider] - 1-2 Days if not improving
[2019-11-15 21:12] VITALS: BP 132/70; PULSE 72; RESP 16; O2SAT 98
== END 2019-11-15 21:38 | disposition home or self-care (01) ==
PROVIDERS: Emergency Provider Emergency Medicine; PCP Family Medicine
DX: R10.9 Unspecified abdominal pain (principal); N28.1 Cyst of kidney, acquired; N83.201 Unspecified ovarian cyst, right side; N83.202 Unspecified ovarian cyst, left side; E66.9 Obesity, unspecified; Z82.3 Family history of stroke; Z82.49 Family history of ischemic heart disease and other diseases of the circulatory system; Z83.3 Family history of diabetes mellitus; Z87.442 Personal history of urinary calculi; Z87.891 Personal history of nicotine dependence; Z88.0 Allergy status to penicillin; Z88.5 Allergy status to narcotic agent; Z88.8 Allergy status to other drugs, medicaments and biological substances; Z90.49 Acquired absence of other specified parts of digestive tract
CPT/HCPCS: 74176; 74177; 80048; 81001; 85025; 96361; 96374; 96375; 99284; J7030; Q9967; A4216; J2405

== ENCOUNTER → 2019-12-05 15:41 | Outpatient (CLI) | payer BC, SELFPAY ==
[2019-11-27 10:02] VITALS: BMI 46.5
--- NOTE | 2019-12-05 16:03 | EKG12_ITS ---
Test Reason : PREOP Blood Pressure : / mmHG Vent. Rate : 090 BPM Atrial Rate : 090 BPM P-R Int : 138 ms QRS Dur : 072 ms QT Int : 392 ms P-R-T Axes : 045 057 049 degrees QTc Int : 479 ms Normal sinus rhythm Normal ECG Confirmed by RONNIE RODRIGUEZ ([id number]), editor greeting card REYNA CAMPA ([id number]) on 12/07/2019 9:30:34 AM Referred By: Best Gupta Confirmed By:RONNIE RODRIGUEZ
[2019-12-05 16:25] LABS: Hematocrit 40.7 % (37-47); Hemoglobin 13.6 g/dL (12.0-15.0); Mean Corp Hgb Conc 33.4 g/dL (32-36); Mean Corpuscular Hgb 30.1 pg (27.0-32.0); Platelet Count 216 K/mm3 (150-450); RBC Distribution Width CV 11.9 % (11.6-14.6); RBC Distribution Width SD 38.7 fl (35.1-43.9); Red Blood Count 4.52 M/mm3 (4.2-5.4); White Blood Count 7.5 K/mm3 (4.4-11.0)
[2019-12-05 16:47] LABS: Hemoglobin A1c 6.5 % (4.2-6.3)
[2019-12-05 16:54] LABS: Anion Gap 6 (5-15); BUN 10 mg/dL (7-18); BUN/Creat Ratio 10.3 RATIO (10-20); Calcium,Total 8.8 mg/dL (8.5-10.1); Chloride 101 mmol/L (98-107); Creatinine, Serum 0.97 mg/dL (0.55-1.02); EST Glomerular Filtration Rate 66 mL/min (>60); Est Glom Filt Rate - Afr Amer 80 mL/min (>60); Glucose 135 mg/dL (74-106); Potassium 3.7 mmol/L (3.5-5.1); Sodium Level 138 mmol/L (136-145)
== END ==
PROVIDERS: PCP Family Medicine; Referring Provider Physician Assistant; Visit Provider Physician Assistant
DX: Z01.810 Encounter for preprocedural cardiovascular examination (principal); E11.9 Type 2 diabetes mellitus without complications
CPT/HCPCS: 36415; 80048; 83036; 85027; 93005

== ENCOUNTER 2019-12-22 07:59 | Day surgery (SDC) | payer BC, SELFPAY ==
[2019-11-27 10:02] VITALS: BMI 46.5
[2019-12-22] VITALS (14 sets, daily range): BP systolic 118–179; BP diastolic 62–108; PULSE 60–109; RESP 12–23; TEMP 36.5–36.9; O2SAT 85–100; BMI 44.5
[2019-12-22] MEDS: Lactated Ringers 1,000 ML 100 ML IV (09:04)
[2019-12-22 09:16] LABS: Bedside Glucose 115 mg/dL (70-110)
--- NOTE | 2019-12-22 11:10 | PCM.OPRPT ---
Report of Operation Date of Procedure: 12/22/19 Pre-Operative Diagnosis: SAIS, AC arthrsis right shoulder Post-Operative Diagnosis: same with < 20% thickness supraspinatus tear Surgery/Procedure Performed:: ASD, August procedure and intra-articular debridement right shoulder printing table hand: Best Gupta Type of Anesthesia:: General Anesthesiologist: Edy Gallegos - Admit VTE Documentation VTE Present on Admission: No VTE Mechan Device Prophylaxis: SCD's, Thigh High TIMOTHY Hose VTE Pharm Prophylaxis ordered?: No Reason prophylaxis not ordered:: Treatment Not Indicated
[2019-12-22] MEDS: Epinephrine (1 mg/ml) 1 MG/ML VIAL (11:12)
[2019-12-22] MEDS: Bupiv/Epi 0.5% Mpf 30 ML Vial (11:12)
[2019-12-22 12:06] LABS: Bedside Glucose 166 mg/dL (70-110)
== END 2019-12-22 14:51 | disposition home or self-care (01) ==
LOC: SDC 08:00 → AC 08:03
PROVIDERS: PCP Family Medicine; Referring Provider Orthopaedic Surgery; Visit Provider Orthopaedic Surgery
PROC: (CPT 29827; principal; 2019-12-22 09:45)
DX: M65.811 Other synovitis and tenosynovitis, right shoulder (principal); E78.00 Pure hypercholesterolemia, unspecified; E11.9 Type 2 diabetes mellitus without complications; D68.51 Activated protein C resistance; I10 Essential (primary) hypertension; K21.9 Gastro-esophageal reflux disease without esophagitis; G47.30 Sleep apnea, unspecified; I25.2 Old myocardial infarction; Z86.711 Personal history of pulmonary embolism; Z87.442 Personal history of urinary calculi; Z87.891 Personal history of nicotine dependence
CPT/HCPCS: 01630; 29824; 82962; 94640; J7120; J2405

== ENCOUNTER → 2020-02-12 12:11 | Outpatient (CLI) | payer BC, SELFPAY ==
[2019-12-26 13:54] VITALS: BMI 44.5
--- NOTE | 2020-02-12 12:13 | BI_ITS ---
MAMMOGRAPHY - BILATERAL SCREENING REASON FOR EXAM: Female, 44 years old. Routine annual screening examination. PERTINENT HISTORY: Aunt with breast cancer. TECHNIQUE: Digital bilateral breast ramiro (3D mammographic acquisition) in the CC and MLO projections. 2-D mediolateral oblique (MLO) and craniocaudad (CC) views of both breasts were obtained. CAD: Full Field Digital Mammography with Computer Added Detection was performed. COMPARISON: Comparison is made with prior study February 09, 2019 and August 21, 2017. FINDINGS: Breast Composition: There are scattered areas of fibroglandular density. There are no dominant masses or suspicious calcifications. Stable benign-appearing bilateral axillary lymph nodes. No other significant abnormalities are identified. There has been no significant change since the prior study. BI/SCREEN MAMM (CAD) W/RAMIRO BILAT IMPRESSION: Stable bilateral screening mammogram. Yearly follow-up mammogram recommended. (A) ASSESSMENT CATEGORY: BIRADS Category 2: Benign. A letter regarding these results will be sent to the patient by the facility within 30 days. Approximately 10% of breast cancers are not detected by mammography. A normal mammogram should not delay biopsy of a clinically suspicious abnormality. [id number] Electronically Signed: Santhosh Morse, at 14:09 EDT , Service support ,
== END ==
PROVIDERS: Family Provider Family Medicine; PCP Family Medicine; Visit Provider Obstetrics & Gynecology
DX: Z12.31 Encounter for screening mammogram for malignant neoplasm of breast (principal)
CPT/HCPCS: 77063; 77067

== ENCOUNTER 2020-04-14 20:26 | Emergency (ER) | payer BC, SELFPAY ==
[2019-12-26 13:54] VITALS: BMI 44.5
[2020-04-14 20:27] VITALS: BP 143/78; PULSE 93; RESP 18; TEMP 36.3; O2SAT 95; BMI 46.0
--- NOTE | 2020-04-14 20:37 | CT_ITS ---
STUDY: CT BRAIN WITHOUT CONTRAST REASON FOR EXAM: Female, 44 years old. FELL OFF MOWER, HIT RIGHT SIDE HEAD, PT HAS FACTOR 5 RADIATION DOSAGE (If Supplied By Facility): CTDIvol = ( 44.99 ) mGy, DLP = ( 762.36 ) mGycm TECHNIQUE: Transaxial CT imaging of the brain was performed without administration of intravenous contrast material. Individualized dose optimization techniques were used for this CT. COMPARISON: Head CT dated February 01, 2019 FINDINGS: Normal soft tissue structures. Normal calvarium. Normal size ventricles and extra-axial spaces for the patient''s age. Normal white matter tracts of the cerebral hemispheres. Normal basal ganglia and thalami. Normal brainstem. Normal cerebellum. There is no intracranial hemorrhage. There are no findings of an acute ischemic infarction. Normal visualized paranasal sinuses. CT/Brain/Head without Contrast IMPRESSION: No demonstrated acute or significant intracranial process. Electronically Signed: Robert Mayorga MD at 21:45 EDT , Service support ,
--- NOTE | 2020-04-14 20:40 | RAD_ITS ---
STUDY: X-RAY - RIGHT SHOULDER REASON FOR EXAM: Female, 44 years old. 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 COMPARISON: None. FINDINGS: Normal glenohumeral articulation. Normal acromioclavicular joint. Normal acromion. Normal humeral head and visualized proximal humerus. The soft tissue structures are unremarkable. There is no demonstrated fracture. Normal visualized pulmonary apex. RAD/Shoulder min 2 Views IMPRESSION: Normal x-ray examination of the shoulder. Electronically Signed: Robert Mayorga MD at 22:02 EDT , Service support ,
--- NOTE | 2020-04-14 20:40 | RAD_ITS ---
STUDY: X-RAY - RIGHT ANKLE REASON FOR EXAM: Female, 44 years old. 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 COMPARISON: None. FINDINGS: Normal visualized distal tibia and fibula. Normal medial and lateral malleoli. Normal tibiotalar articulation and ankle mortise. Normal visualized talus and calcaneus. The visualized subtalar, talonavicular, calcaneocuboid and tarsal articulations are normal. There is no demonstrated fracture. The medial clear space is slightly widened suggesting a mild ligamentous sprain injury or subluxation of the tibiotalar articulation. Mild soft tissue swelling is present around ankle joint. RAD/Ankle min 3 Views IMPRESSION: The medial clear space is slightly widened suggesting a mild ligamentous sprain injury or subluxation of the tibiotalar articulation. Electronically Signed: Robert Mayorga MD at 22:02 EDT , Service support ,
[2020-04-14] MEDS: HYDROcodone Bitartrate/Apap 5/325 Tablet PO ×2 (20:47→22:26)
--- NOTE | 2020-04-14 21:38 | ED.DCSUM_ITS ---
History of Present Illness Chief Complaint: Fall Informant: Patient Onset: Today Current Severity: Moderate Maximum Severity: Moderate Narrative: Patient presents after a fall. She was getting off of her riding lawnmower after parking it in the garage when she lost her footing and fell onto the cement garage floor. She landed on her right side. She does believe she hit her head on the floor. She complaining of a headache, right shoulder pain, and right ankle pain. She does report having shoulder surgery in December of this year with Dr. Brooks. She is still in physical therapy. - Past Medical History (1) Essential (primary) hypertension Status: Chronic (2) cardiomyopathy Status: Chronic (3) Protein S deficiency affecting Status: Chronic Past Medical History - Allergies and Home Meds Allergies/Adverse Reactions: Allergies Penicillins Allergy (Verified 04/14/20 20:26) Rash tramadol Allergy (Verified 04/14/20 20:26) Rash Primary Care Physician: Horace Paniagua III, MD [Primary Care Provider] - Prior records reviewed: Yes Surgical History: cholecystectomy, - - bilateral tubal ligation Lives: With Family Smoking Status: Former smoker - Family History Maternal Family History: Family History (Last Reviewed 12/26/19 @ 13:54 by Edwin Escamilla) Mother Diabetes Hypertension Cancer Uterine cancer Pancreatitis Father Diabetes Heart disease Hypertension Daughter Hearing loss Other CVA (cerebral vascular accident) Gout Family History: Reports: - - uterine cancer, diabetes, kidney stones pancreatitis Paternal Family History: Family History (Last Reviewed 12/26/19 @ 13:54 by Edwin Escamilla) Mother Diabetes Hypertension Cancer Uterine cancer Pancreatitis Father Diabetes Heart disease Hypertension Daughter Hearing loss Other CVA (cerebral vascular accident) Gout Family History: Reports: - - father has copd,chf, pe Review of Systems General: Denies: Chills, Fever Eyes: Denies: Visual changes - bilaterally ENT: Denies: Bilateral ear pain Cardiovascular: Denies: Chest pain Respiratory: Denies: Dyspnea, Cough Gastrointestinal: Denies: Abdominal pain, Nausea, Vomiting, Diarrhea Genitourinary: Denies: Dysuria Musculoskeletal: Reports: Extremity Pain. Denies: Neck pain Neurological: Reports: Headache Hematologic: Denies: Easy bruising, Easy bleeding Allergy: Denies: Uticaria Physical Exam Vital Signs/Narrative: Vital Signs Temp Pulse Resp BP Pulse Ox 04/14/20 20:27 97.4 F L 93 18 143/78 H 95 Inital Vital Signs reviewed: Yes General: Well nourished, Well developed Head: Normocephalic ENT: Moist mucous membranes Neck: Supple Cardiovascular: Regular rate, Regular rhythm Respiratory: No distress, CTA bilaterally Abdomen: Soft, Nontender, Nondistended Extremities: - - Diffuse tenderness throughout the right shoulder. No evidence of dislocation. No tenderness throughout the mid to distal humerus, elbow, forearm, or hand. Previous surgical sites are clean. Right lower extremity examination reveals tenderness to the lateral malleolus greater than medial. She does have early ecchymosis and a edema to the lateral malleolus. No tenderness over the foot itself. No tenderness over the proximal fifth metatarsal. Neurological: Alert, Oriented x3 Psychological: Normal affect Diagnostic/Tx/Re-eval Impressions Brain CT 04/14/20 20:37 IMPRESSION: No demonstrated acute or significant intracranial process. Electronically Signed: Robert Mayorga MD at 21:45 EDT , Service support , Ankle X-Ray 04/14/20 20:40 IMPRESSION: The medial clear space is slightly widened suggesting a mild ligamentous sprain injury or subluxation of the tibiotalar articulation. Electronically Signed: Robert Mayorga MD at 22:02 EDT , Service support , Shoulder X-Ray 04/14/20 20:40 IMPRESSION: Normal x-ray examination of the shoulder. Electronically Signed: Robert Mayorga MD at 22:02 EDT , Service support , 04/14/20 20:37 CT Head [Brain/Head without Contrast] [CT] Stat 04/14/20 20:40 Ankle min 3 Views [RAD] Stat Shoulder min 2 Views [RAD] Stat - Medical Decision Making Patient was given [place] and naproxen for pain. Ankle stirrup splint will be given. We will test off the patient with a walker as she does not feel she can put weight on her right ankle. We will try to ensure no extra stress on her right shoulder. Patient will follow-up with the Dr. Brooks to whom she is known. ED Disposition - Plan for ED Patient: Disposition: Home or Assisted Living Diagnosis: Right ankle sprain, Contusion of right shoulder Instructions: ED Contusion Shoulder, ED Sprain Ankle Prescriptions: Naproxen [Naprosyn] 500 mg PO BID PRN PRN #20 tablet PRN Reason: Pain Score 4-10/10 Hydrocodone Bitart/Apap 5-325 [[place] 5MG-325MG] 1 tablet PO Q6H PRN PRN 3 Days #10 tablet PRN Reason: Pain Referrals: Mookie Brooks DO [STAFF PHYSICIAN] - 1 Week if not improving
[2020-04-14] MEDS: Naproxen 500 MG Tablet PO (22:25)
[2020-04-14 22:38] VITALS: BP 150/68; PULSE 86; RESP 16; O2SAT 98
== END 2020-04-14 22:39 | disposition home or self-care (01) ==
PROVIDERS: Emergency Provider Emergency Medicine; PCP Family Medicine
DX: S40.011A Contusion of right shoulder, initial encounter (principal); S93.401A Sprain of unspecified ligament of right ankle, initial encounter; V87.8XXA Person injured in other specified noncollision transport accidents involving motor vehicle (traffic), initial encounter; Y93.H9 Activity, other involving exterior property and land maintenance, building and construction; Y92.015 Private garage of single-family (private) house as the place of occurrence of the external cause; Y99.9 Unspecified external cause status; I10 Essential (primary) hypertension; Z82.3 Family history of stroke; Z82.49 Family history of ischemic heart disease and other diseases of the circulatory system; Z83.3 Family history of diabetes mellitus; Z87.891 Personal history of nicotine dependence; Z88.0 Allergy status to penicillin; Z88.5 Allergy status to narcotic agent; Z88.8 Allergy status to other drugs, medicaments and biological substances; Z90.49 Acquired absence of other specified parts of digestive tract
CPT/HCPCS: 70450; 73030; 73610; 99284

== ENCOUNTER → 2020-05-28 10:22 | Outpatient (CLI) | payer BC, SELFPAY ==
[2020-05-27 16:37] VITALS: BMI 46.0
[2020-05-28 10:35] LABS: Mucous, Urine 0 SEEN /hpf (<or=2+)
[2020-05-28 11:28] LABS: Color, Urine Yellow (Yellow); Glucose, Dipstick Normal (Normal); Ketone-Dipstick Negative (Negative); Leukocyte Esterase-Dipstick 25 /ul (Negative); Nitrite-Dipstick Negative (Negative); Occult Blood-Urine 10 /ul (Negative); Protein-Dipstick 15 mg/dl (Negative); Urine Bilirubin Dipstick Negative (Negative); Urine Clarity Sl. Cloudy (Clear); Urine Urobilinogen 1 mg/dl (Normal)
[2020-05-28 11:35] LABS: Bacteria 1+ /hpf (None Seen); Red Blood Cells-Urine 0-5 SEEN /hpf (0-5); Squamous Epithelial Cells - UA 0-5 SEEN /hpf (5-10); White Blood Cells 0-5 SEEN /hpf (0-5)
== END ==
PROVIDERS: PCP Family Medicine; Referring Provider Physician Assistant Surgical; Visit Provider Physician Assistant Surgical
DX: R30.0 Dysuria (principal)
CPT/HCPCS: 81001; 87086; 87088; 87186

== ENCOUNTER 2020-06-03 18:24 | Emergency (ER) | payer BC, SELFPAY ==
[2020-05-27 16:37] VITALS: BMI 46.0
[2020-06-03 18:25] VITALS: BP 136/84; PULSE 89; RESP 16; TEMP 36.3; O2SAT 96; BMI 43.7
[2020-06-03 18:47] LABS: Mucous, Urine 0 SEEN /hpf (<or=2+)
[2020-06-03 18:55] LABS: Color, Urine Yellow (Yellow); Glucose, Dipstick Normal (Normal); Ketone-Dipstick Negative (Negative); Leukocyte Esterase-Dipstick 100 /ul (Negative); Nitrite-Dipstick Negative (Negative); Occult Blood-Urine 25 /ul (Negative); Protein-Dipstick 30 mg/dl (Negative); Specific Gravity, Urine 1.015 (1.002-1.030); Urine Bilirubin Dipstick Negative (Negative); Urine Clarity Sl. Cloudy (Clear); Urine Urobilinogen Normal (Normal)
[2020-06-03 19:02] LABS: Bacteria RARE /hpf (None Seen); Red Blood Cells-Urine 0-5 SEEN /hpf (0-5); Squamous Epithelial Cells - UA 0-5 SEEN /hpf (5-10); White Blood Cells 10-25 SEEN /hpf (0-5)
--- NOTE | 2020-06-03 19:23 | CT_ITS ---
STUDY: CT ABDOMEN AND PELVIS WITHOUT CONTRAST REASON FOR EXAM: Female, 45 years old. Hematuria. Patient on MACROBID for urinary symptoms. Positive for Escherichia coli. History of kidney stones and hypertension. RADIATION DOSAGE (If Supplied By Facility): CTDIvol = ( 23.28 ) mGy, DLP = ( 1198.30 ) mGycm TECHNIQUE: Transaxial images were obtained from the dome of the diaphragm to the symphysis pubis without oral contrast, and without intravenous contrast. Sagittal and coronal images were reconstructed. Individualized dose optimization techniques were used for this CT. COMPARISON: 11/15/2019. FINDINGS: The visualized lung bases are unremarkable. The visualized portions of the heart are within normal limits. Diffuse fatty infiltration of the enlarged liver without focal mass. There is non-visualization of the gallbladder, which may be secondary to either contraction or a prior cholecystectomy. Normal spleen. Normal pancreas. Normal bilateral adrenal glands. Power rotation right kidney. There is a 3 mm nonobstructing stone in the lower pole calyx. There is no hydronephrosis. Normal right ureter. Normal left kidney. Normal left ureter. Normal visualized stomach. Normal small intestine. Normal colon. The appendix is visualized and appears normal. Normal abdominal aorta. Normal inferior vena cava. Normal retroperitoneum. Normal urinary bladder. Uterus is absent. There is a retained left ovary along the pelvic sidewall which contains a 3.8 x 2.7 x 3 cm cyst. The right adnexa is not absent. There is nonspecific subcentimeter right pelvic lymphadenopathy. No free air or free fluid is seen within the peritoneal cavity. Normal abdominal wall. Normal osseous structures. CT/Abdomen/Pelvis without Cont IMPRESSION: 1. Nonobstructing right renal calculus. This has minimally enlarged since prior CT. 2. There is no other evidence of renal, ureteral or urinary bladder abnormality. 3. Large left ovarian cyst unchanged from prior study. 4. Stable fatty aeration of an enlarged liver. 5. No other interval change. Electronically Signed: Oni Contreras DO at 20:03 EDT Tel [phone], Service support ,
[2020-06-03] MEDS: 0.9% Normal Saline 1,000 ML 1000 ML IV (19:37)
[2020-06-03] MEDS: Ketorolac 30 MG/ML Syringe IV (19:38)
[2020-06-03] MEDS: Ceftriaxone 1 GM/50 ML BAG IV (20:00)
[2020-06-03 20:01] LABS: Absolute Lymphocyte Count 2.33 X10^3/uL (0.83-4.51); Absolute Neutrophil Count 5.4 X10^3/uL (2.0-7.7); Basophil# 0.05 X10^3/uL; Basophil% 0.6 % (0-1); Eosinophil# 0.15 X10^3/uL; Eosinophils% 1.8 % (0-5); Hemoglobin 13.2 g/dL (12.0-15.0); Lymphocyte # 2.33 X10^3/ul (4.0); Lymphocyte % 27.9 % (19-41); Mean Corp Hgb Conc 33.8 g/dL (32-36); Mean Corpuscular Volume 91.5 fL (81-99); Mean Platelet Vol. 10.7 fl (6.2-12.0); Monocyte# 0.45 X10^3/uL; Monocyte% 5.4 % (0-10); NRBC Flagged by Analyzer 0 % (0-5); Neutrophil # 5.35 X10^3/uL (2.7-7.7); Neutrophil % 64.1 % (47-70); Platelet Count 218 K/mm3 (150-450); RBC Distribution Width CV 11.9 % (11.6-14.6); RBC Distribution Width SD 39.1 fl (35.1-43.9); Red Blood Count 4.26 M/mm3 (4.2-5.4); White Blood Count 8.4 K/mm3 (4.4-11.0)
[2020-06-03 20:21] LABS: ALB/GLOB Ratio 0.9 RATIO (0.9-2.4); AST(SGOT) 23 U/L (15-37); Alanine Aminotransfer ALT/SGPT 44 U/L (13-56); Albumin, Serum 3.4 g/dL (3.2-5.0); Alkaline Phosphatase 67 U/L (45-117); Anion Gap 5 (5-15); BUN 11 mg/dL (7-18); BUN/Creat Ratio 11.1 RATIO (10-20); Calcium,Total 8.5 mg/dL (8.5-10.1); Chloride 104 mmol/L (98-107); Creatinine, Serum 0.99 mg/dL (0.55-1.02); EST Glomerular Filtration Rate 65 mL/min (>60); Est Glom Filt Rate - Afr Amer 79 mL/min (>60); Estimated Creatinine Clearance 63.27 ml/min; Globulin 3.6 g/dL (2.2-4.2); Glucose 118 mg/dL (74-106); Potassium 3.4 mmol/L (3.5-5.1); Sodium Level 139 mmol/L (136-145)
[2020-06-03 20:29] VITALS: RESP 16
--- NOTE | 2020-06-03 20:56 | ED.VIS.GEN ---
History of Present Illness Chief Complaint: Complaint Informant: Patient Narrative: Patient is being treated with Macrobid for urinary tract infection she still has symptoms now she has some slight right flank pain, she has no fever chills she has no abdominal pain she has no vaginal discharge or any other symptoms. Past Medical History - Allergies and Home Meds Allergies/Adverse Reactions: Allergies Penicillins Allergy (Verified 05/27/20 16:37) Rash tramadol Allergy (Verified 05/27/20 16:37) Rash Primary Care Physician: Horace Paniagua III, MD [Primary Care Provider] - Past Medical History: - - Noncontributory Surgical History: cholecystectomy, - - bilateral tubal ligation Smoking Status: Never smoker - Family History Maternal Family History: Family History (Last Reviewed 05/27/20 @ 16:37 by Samira Seo) Mother Diabetes Hypertension Cancer Uterine cancer Pancreatitis Father Diabetes Heart disease Hypertension Daughter Hearing loss Other CVA (cerebral vascular accident) Gout Family History: Reports: - - uterine cancer, diabetes, kidney stones pancreatitis Paternal Family History: Family History (Last Reviewed 05/27/20 @ 16:37 by Samira Seo) Mother Diabetes Hypertension Cancer Uterine cancer Pancreatitis Father Diabetes Heart disease Hypertension Daughter Hearing loss Other CVA (cerebral vascular accident) Gout Family History: Reports: - - father has copd,chf, pe Review of Systems All systems negative except as indicated General: Denies: Fever Cardiovascular: Denies: Chest pain Respiratory: Denies: Dyspnea, Cough Gastrointestinal: Denies: Abdominal pain Genitourinary: Reports: Dysuria, Hematuria, Frequency Neurological: Denies: Headache, Weakness Endocrine: Denies: Polyuria, Polydipsia Hematologic: Denies: Easy bruising Physical Exam Vital Signs/Narrative: Vital Signs Temp Pulse Resp BP Pulse Ox 06/03/20 20:29 16 06/03/20 18:25 97.4 F L 89 16 136/84 H 96 Inital Vital Signs reviewed: Yes General: Well nourished Head: Normocephalic ENT: Moist mucous membranes Cardiovascular: Regular rate, Regular rhythm Respiratory: No distress, CTA bilaterally Abdomen: Soft, Nontender Back: - - Slight right-sided CVA tenderness Extremities: Nontender, No edema Skin: Normal color Neurological: Alert, Oriented x3 Diagnostic/Tx/Re-eval - Medical Decision Making Patient is found to have a urinary tract infection, she was given IV antibiotics, she appears well I will discharge. She has an unremarkable CT and is found to have no systemic signs. I will change her antibiotics. ED Disposition - Plan for ED Patient: Disposition: Home or Assisted Living Diagnosis: UTI (urinary tract infection) Instructions: ED CYSTITIS Female Adult Prescriptions: levoFLOXacin IV [Levaquin] 500 mg IV Q24H #7 bag Transmission Status: Pending to [id number] Referrals: Horace Paniagua III, MD [Primary Care Provider] - 3-5 Days
[2020-06-03] MEDS: Ondansetron 4 MG/2 ML Vial IV (20:59)
[2020-06-03 21:09] VITALS: PULSE 82; RESP 16; O2SAT 98
--- NOTE | 2020-06-03 21:17 | ED.DEP ---
ED Disposition - Plan for ED Patient: Disposition: Home or Assisted Living Diagnosis: UTI (urinary tract infection) Instructions: ED CYSTITIS Female Adult Prescriptions: levoFLOXacin tablet [Levaquin tablet] 750 mg PO DAILY #5 tab Transmission Status: Pending to [id number] Referrals: Horace Paniagua III, MD [Primary Care Provider] - 3-5 Days
== END 2020-06-03 21:27 | disposition home or self-care (01) ==
PROVIDERS: Emergency Provider Emergency Medicine; PCP Family Medicine
DX: N39.0 Urinary tract infection, site not specified (principal); I10 Essential (primary) hypertension; Z82.49 Family history of ischemic heart disease and other diseases of the circulatory system; Z83.3 Family history of diabetes mellitus; Z87.442 Personal history of urinary calculi; Z88.0 Allergy status to penicillin; Z88.5 Allergy status to narcotic agent; Z88.8 Allergy status to other drugs, medicaments and biological substances; Z90.49 Acquired absence of other specified parts of digestive tract; Z82.3 Family history of stroke
CPT/HCPCS: 74176; 80053; 81001; 85025; 87086; 87088; 96365; 96375; 99283; J7030; A4216; J2405

== ENCOUNTER 2020-11-10 15:28 | Emergency (ER) | payer OTHER, SELFPAY ==
[2020-07-05 13:46] VITALS: BMI 45.5
[2020-11-10 15:30] VITALS: BP 161/92; PULSE 96; RESP 20; TEMP 37.1; O2SAT 97; BMI 43.7
[2020-11-10 15:38] VITALS: BP 130/69; PULSE 88; RESP 15; O2SAT 97
--- NOTE | 2020-11-10 16:05 | CT_ITS ---
STUDY: CT ABDOMEN AND PELVIS WITHOUT CONTRAST REASON FOR EXAM: Female, 45 years old. KIDNEY STONE, LEFT FLANK PAIN, CHOLECYSTECTOMY, HYSTERECTOMY, HX [place] RADIATION DOSAGE (If Supplied By Facility): CTDIvol = ( 24.05 ) mGy, DLP = ( 1243.72 ) mGycm TECHNIQUE: Transaxial images were obtained from the dome of the diaphragm to the symphysis pubis without oral contrast, and without intravenous contrast. Sagittal and coronal images were reconstructed. Individualized dose optimization techniques were used for this CT. COMPARISON: 06/03/2020 FINDINGS: The visualized lung bases are unremarkable. The visualized portions of the heart are within normal limits. There is decreased attenuation of the liver consistent with steatosis. There is non-visualization of the gallbladder, which may be secondary to either contraction or a prior cholecystectomy. Normal spleen. Normal pancreas. Normal bilateral adrenal glands. 3 mm calcification of the right kidney seen on image 85 of series 2. Normal left kidney. Normal visualized stomach. Normal small intestine. Normal colon. The appendix is visualized and appears normal. Normal abdominal aorta. Normal inferior vena cava. Normal retroperitoneum. Normal urinary bladder. There is absence of the uterus consistent with a prior hysterectomy. Left ovarian cyst is stable. Normal abdominal wall. Normal osseous structures. CT/Abdomen/Pelvis without Cont IMPRESSION: 1. Nonobstructing right renal calculus. No hydronephrosis. 2. Stable chronic changes, as above. Electronically Signed: Clem Patterson MD (Brooks) at 16:38 EST , Service support ,
[2020-11-10] MEDS: Ondansetron 4 MG/2 ML Vial IV (16:25)
[2020-11-10] MEDS: Morphine 4 MG/ML Syringe IV (16:25)
--- NOTE | 2020-11-10 16:47 | ED.DCSUM_ITS ---
- ER Visit Summary Date of Service: 11/10/20 Chief Complaint: Left flank pain History of Present Illness: The patient is a 45 F presenting with left flank pain. Patient state this started approximately 1 week ago. She denies injury. She has been taking Tylenol and Advil at home. States this feels similar to when she had kidney stones in the past. She went to urgent care and they tested her for Covid which was negative. She complains of mild dysuria, denies hematuria. She has nausea with no vomiting. Denies abdominal pain. Denies fever. Denies other complaints. Physical Examination: Vitals are stable. Patient is afebrile. Alert no acute distress. HEENT exam is unremarkable. Neck is supple. Lungs are clear and equal bilaterally. Heart is regular rate and rhythm. Abdomen is soft nontender nondistended. No guarding or rebound Back: Left CVA tenderness Extremities are unremarkable. Skin is warm and dry. Remainder of exam is unremarkable. Emergency Department Course and Treatment: Patient was given morphine, Zofran IV. CT flank shows nonobstructing right renal calculus. No hydronephrosis. Stable chronic changes. Urinalysis unremarkable. On reevaluation patient is resting comfortably. Discussed possibility of musculoskeletal pain. She will follow-up with her primary care physician. Advised return to ED for worsening complaints. Disposition: Discharged home Impression: Left flank pain This note was generated with [email or web address] dictation software. It may contain incorrect words, spelling, and punctuation that were not noted in review of the chart prior to signing ED Disposition - Plan for ED Patient: Instructions: ED Flank Pain, Uncertain Cause Referrals: Horace Paniagua III, MD [Primary Care Provider] -
[2020-11-10 17:29] LABS: Bacteria 0 SEEN /hpf (None Seen); Mucous, Urine 0 SEEN /hpf (<or=2+); Red Blood Cells-Urine 0 SEEN /hpf (0-5); White Blood Cells 0 SEEN /hpf (0-5)
[2020-11-10 17:41] VITALS: BP 128/79; PULSE 91; RESP 16; O2SAT 99
[2020-11-10 17:47] LABS: Color, Urine Yellow (Yellow); Glucose, Dipstick Normal (Normal); Ketone-Dipstick Negative (Negative); Leukocyte Esterase-Dipstick Negative /ul (Negative); Nitrite-Dipstick Negative (Negative); Occult Blood-Urine Negative /ul (Negative); Protein-Dipstick Negative (Negative); Urine Bilirubin Dipstick Negative (Negative); Urine Clarity Clear (Clear); Urine Urobilinogen Normal (Normal); Urine pH 6.5 (5.0 - 8.0)
[2020-11-10 17:53] LABS: Squamous Epithelial Cells - UA 0-5 SEEN /hpf (5-10)
--- NOTE | 2020-11-10 18:01 | ED.DEP ---
ED Disposition - Plan for ED Patient: Instructions: ED Flank Pain, Uncertain Cause Referrals: Horace Paniagua III, MD [Primary Care Provider] -
[2020-11-10 18:11] VITALS: PULSE 89; RESP 14; O2SAT 98
== END 2020-11-10 18:11 | disposition home or self-care (01) ==
PROVIDERS: Emergency Provider Emergency Medicine; PCP Family Medicine
DX: R10.9 Unspecified abdominal pain (principal); N20.0 Calculus of kidney; Z87.442 Personal history of urinary calculi; R11.0 Nausea; R30.0 Dysuria
CPT/HCPCS: 74176; 81001; 96374; 96375; 99284; A4216; J2405

== ENCOUNTER 2020-11-25 15:15 | Emergency (ER) | payer OTHER, SELFPAY ==
[2020-11-25 15:16] VITALS: BP 154/93; PULSE 88; RESP 17; TEMP 36.4; O2SAT 97; BMI 45.3
--- NOTE | 2020-11-25 15:33 | EKG12_ITS ---
Test Reason : CP Blood Pressure : / mmHG Vent. Rate : 080 BPM Atrial Rate : 080 BPM P-R Int : 144 ms QRS Dur : 074 ms QT Int : 410 ms P-R-T Axes : 027 050 047 degrees QTc Int : 472 ms Normal sinus rhythm Normal ECG Confirmed by MARGARITA ROCHA, CARLIN ([id number]), assignment desk editor REYNA CAMPA ([id number]) on 11/28/2020 9:29:25 AM Referred By: CATY Confirmed By:CARLIN AVILA MD
--- NOTE | 2020-11-25 15:40 | RAD_ITS ---
STUDY: X-RAY CHEST REASON FOR EXAM: Female, 45 years old. pt c/o chest pain and palpiations, also c/o headache, and diarrhea TECHNIQUE: Single AP portable view of the chest. COMPARISON: 09/10/2019. FINDINGS: The lungs are clear and expanded. There is no demonstrated pleural abnormality. Normal size heart. Normal mediastinum and jessi. Normal visualized pulmonary arteries. Normal visualized aortic arch and descending thoracic aorta. Normal visualized thoracic spine. Normal visualized ribs, clavicles, and shoulders. There is no demonstrated abnormality of the visualized soft tissue structures of the upper abdomen. RAD/Chest 1 View (Portable) IMPRESSION: Normal x-ray examination of the chest. Electronically Signed: Wendy Gleason MD at 16:24 EST Tel , Service support ,
--- NOTE | 2020-11-25 15:57 | ED.DCSUM_ITS ---
- ER Visit Summary Date of Service: 11/25/20 Chief Complaint: Chest pain, diarrhea History of Present Illness: The patient is a 45 F presenting with chest pain and diarrhea. Patient states that she has been having sharp intermittent chest pain lasting a few seconds at a time since yesterday. She denies shortness of breath or cough. Denies fever. She also has diarrhea which started yesterday. She denies abdominal pain or vomiting. She has nausea. She has a mild headache. She has dizziness without syncope. No recent antibiotics. No recent travel. No known exposure to Covid. Physical Examination: Vitals are stable. Patient is afebrile. Alert no acute distress. HEENT exam is unremarkable. Neck is supple. Lungs are clear and equal bilaterally. Heart is regular rate and rhythm. Abdomen is soft nontender nondistended. Extremities are unremarkable. Skin is warm and dry. No focal neurologic deficit. Remainder of exam is unremarkable. Emergency Department Course and Treatment: Patient was given IV fluids. EKG is sinus rhythm rate of 80 with no acute ischemic changes. Chest x-ray read by myself and radiology shows no acute process. CBC, chemistries unremarkable. D- dimer is normal. Troponin is negative. Covid is negative. Delta troponin is negative. On reevaluation, patient is resting comfortably. She is feeling improved. She is advised to follow up with her primary care physician. Advised return to the ED for worsening complaints. Disposition: Discharge home Impression: Atypical chest pain, diarrhea This note was generated with [employer] dictation software. It may contain incorrect words, spelling, and punctuation that were not noted in review of the chart prior to signing ED Disposition - Plan for ED Patient: Disposition: Home or Assisted Living Instructions: ED Chest Pain, Uncertain Cause, ED Diarrhea, Unknown Cause Referrals: Horace Paniagua III, MD [Primary Care Provider] -
[2020-11-25] MEDS: 0.9% Normal Saline 1,000 ML 1000 ML IV (16:09)
[2020-11-25 16:16] VITALS: BP 141/74; PULSE 83; RESP 17; O2SAT 98
[2020-11-25 16:28] LABS: Absolute Lymphocyte Count 1.96 X10^3/uL (0.83-4.51); Absolute Neutrophil Count 3.9 X10^3/uL (2.0-7.7); Basophil# 0.05 X10^3/uL; Basophil% 0.8 % (0-1); Eosinophil# 0.13 X10^3/uL; Eosinophils% 2.1 % (0-5); Hematocrit 41.4 % (37-47); Hemoglobin 13.5 g/dL (12.0-15.0); Lymphocyte # 1.96 X10^3/ul (4.0); Lymphocyte % 31.2 % (19-41); Mean Corp Hgb Conc 32.6 g/dL (32-36); Mean Corpuscular Hgb 29.6 pg (27.0-32.0); Mean Corpuscular Volume 90.8 fL (81-99); Mean Platelet Vol. 10.8 fl (6.2-12.0); Monocyte# 0.28 X10^3/uL; Monocyte% 4.5 % (0-10); NRBC Flagged by Analyzer 0 % (0-5); Neutrophil # 3.85 X10^3/uL (2.7-7.7); Neutrophil % 61.1 % (47-70); Platelet Count 213 K/mm3 (150-450); RBC Distribution Width CV 12.1 % (11.6-14.6); RBC Distribution Width SD 40.3 fl (35.1-43.9); Red Blood Count 4.56 M/mm3 (4.2-5.4); White Blood Count 6.3 K/mm3 (4.4-11.0)
[2020-11-25 16:35] LABS: D-Dimer Quantitative (DVT/PE) 0.44 FEU/ug/m (0.27-0.49)
[2020-11-25 17:13] LABS: Anion Gap 6 (5-15); BUN 14 mg/dL (7-18); BUN/Creat Ratio 17.3 RATIO (10-20); Calcium,Total 8.5 mg/dL (8.5-10.1); Chloride 105 mmol/L (98-107); Creatinine, Serum 0.81 mg/dL (0.55-1.02); EST Glomerular Filtration Rate 82 mL/min (>60); Est Glom Filt Rate - Afr Amer 99 mL/min (>60); Estimated Creatinine Clearance 77.33 ml/min; Glucose 120 mg/dL (74-106); Potassium 4.1 mmol/L (3.5-5.1); Sodium Level 138 mmol/L (136-145)
[2020-11-25 17:24] VITALS: BP 124/72; PULSE 85; RESP 19; O2SAT 97
--- NOTE | 2020-11-25 19:28 | ED.DEP ---
ED Disposition - Plan for ED Patient: Instructions: ED Chest Pain, Uncertain Cause, ED Diarrhea, Unknown Cause Referrals: Horace Paniagua III, MD [Primary Care Provider] -
[2020-11-25 19:38] VITALS: BP 132/87; PULSE 80; RESP 15; O2SAT 98
== END 2020-11-25 19:38 | disposition home or self-care (01) ==
LOC: ED 15:42
PROVIDERS: Emergency Provider Emergency Medicine; PCP Family Medicine
DX: R07.89 Other chest pain (principal); R19.7 Diarrhea, unspecified; R42 Dizziness and giddiness; R51.9 Headache, unspecified; R11.0 Nausea
CPT/HCPCS: 71045; 80048; 84484; 85025; 85379; 87426; 93005; 96360; 99285; J7030; A4216

== ENCOUNTER 2021-03-20 16:18 | Emergency (ER) | payer OTHER, SELFPAY ==
[2020-12-24 11:38] VITALS: BMI 44.1
[2021-03-20 16:20] VITALS: BP 160/94; PULSE 95; RESP 16; TEMP 36.6; O2SAT 94; BMI 44.1
--- NOTE | 2021-03-20 16:43 | EKG12_ITS ---
Test Reason : Blood Pressure : / mmHG Vent. Rate : 087 BPM Atrial Rate : 087 BPM P-R Int : 134 ms QRS Dur : 074 ms QT Int : 406 ms P-R-T Axes : 016 055 043 degrees QTc Int : 488 ms Normal sinus rhythm Prolonged QT Abnormal ECG Confirmed by MARGARITA ROCHA, CARLIN ([id number]), tape editor REYNA CAMPA ([id number]) on 03/24/2021 9:51:03 AM Referred By: Confirmed By:CARLIN AVILA MD
--- NOTE | 2021-03-20 16:45 | EX.ED.DYSGE1 ---
HPI History of Present Illness Chief Complaint: Chest Pain Informant: patient Onset/Context/Timing Onset: Days (6) Context: Gradual Onset Timing: Continuous Quality: tight Location: chest Current Severity: Mild Maximum Severity: Mild Worsened by: coughing Relieved by: nothing Associated Symptoms Associated Symptoms: sinus congestion that seemed to go down into my chest Narrative Narrative: Patient started with upper respiratory tract symptoms of cough occasionally productive of green sputum, congestion, diffuse sinus pressure, and diffuse frontal headache especially when she coughs that started 3 days after her daughter had the exact same symptoms. Her daughter tested negative for Covid. The patient has not had Covid, and furthermore she has been vaccinated, receiving the second injection about 1.5 weeks ago. She has developed tightness, wheezing, congestion in her chest, the sinus symptoms are improved but still present to some degree. She has had some subjective fevers at times but not today. She went to urgent care discussing these symptoms and need for albuterol, but they did not want to evaluate her further and sent her here because she had a history of cardiomyopathy and a pulmonary embolus remotely for which she is no longer treated with anticoagulants. [facility] Medical History Arthritis Asthma Breathing-related sleep disorder COPD (chronic obstructive pulmonary disease) Essential (primary) hypertension GERD (gastroesophageal reflux disease) History of deep venous thrombosis Hx of renal calculi Migraines Myopericarditis Nephrolithiasis Nicotine dependence in remission Non-STEMI (non-ST elevated myocardial infarction) (07/2008) Obesity Obstructive sleep apnea cardiomyopathy Pulmonary embolus (07/2008) Pulmonary nodule Stomach ulcer Type 2 diabetes mellitus Home Medications hydrochlorothiazide 25 mg PO DAILY 12/30/15 [History Last Taken Unknown] cholecalciferol (vitamin D3) 5,000 unit PO DAILY 07/30/19 [History Last Taken Unknown] omeprazole 40 mg capsule,delayed release 40 mg PO DAILY 11/15/19 [History Last Taken 12/22/19 07:00] albuterol sulfate 1 - 2 puff INHALATION Q6H PRN PRN 12/14/19 [History Last Taken Unknown] ibuprofen 800 mg PO BID 04/14/20 [History Last Taken Unknown] metformin 500 mg PO DAILY 11/10/20 [History Last Taken Unknown] sertraline 25 mg tablet 25 mg PO DAILY 12/24/20 [History Last Taken Unknown] sumatriptan succinate 25 mg tablet See Rx Instructions PO .COMPLEX 12/24/20 [History Last Taken Unknown] albuterol sulfate [Ventolin HFA] 1 - 2 puff INHALATION Q4H PRN PRN #1 inhaler 03/20/21 [Rx Last Taken Unknown] Allergy/AdvReac Type Severity Reaction Status Date / Time Penicillins Allergy Rash Verified 03/20/21 16:23 tramadol Allergy Rash Verified 03/20/21 16:23 Family History Mother Diabetes Hypertension Cancer Uterine cancer Pancreatitis Father Diabetes Heart disease Hypertension Daughter Hearing loss Other CVA (cerebral vascular accident) Gout Surgical History H/O: hysterectomy History of left heart catheterization (07/2008) History of shoulder surgery Hx of cholecystectomy Hx of tympanostomy tubes Social History Smoking Status: Former smoker second hand exposure: No alcohol intake: current alcohol intake frequency: 0-2 drinks per day details: social substance use type: does not use caffeine: Yes what type of physical activity do you participate in: none and walking seatbelt use: always do you feel safe at home: Yes additional social history: Patient works at the [employer] Constitutional Constitutional ED: Denies chills Eyes Eyes: Denies change in vision or diplopia ENT ENT ED: Reports as per HPI, headache(s), rhinorrhea, sinus pain, sinus pressure and sore throat Cardiovascular Cardiovascular: Denies palpitations Respiratory/Chest Respiratory/Chest: Reports as per HPI, chest congestion, chest tightness and wheezing Gastrointestinal Gastrointestinal: Denies abdominal pain, diarrhea, nausea or vomiting Genitourinary Genitourinary ED: Denies dysuria or hematuria Musculoskeletal Musculoskeletal: Denies back pain or neck pain Integumentary Denies abscess or rash Neurologic Neurologic: Denies headache(s), paresthesias or weakness Psychiatric Psychiatric: Denies anxiety or suicidal thoughts EXAM Physical Exam Const Vital Signs: 03/20/21 16:20 03/20/21 16:49 03/20/21 16:53 Temperature 97.8 F Temperature Source Temporal Pulse Rate 95 85 Respiratory Rate 16 16 Respiratory Effort Normal Blood Pressure 160/94 H Blood Pressure Mean 116 Pulse Ox 94 Oxygen Delivery Method Room Air 03/20/21 17:21 Temperature Temperature Source Pulse Rate 87 Respiratory Rate 16 Respiratory Effort Blood Pressure 140/74 H Blood Pressure Mean 96 Pulse Ox 96 Oxygen Delivery Method Room Air Positive well nourished and well developed General Appearance ED: well developed and NAD HEENT Reports moist mucous membranes HEENT Narrative: Mild diffuse sinus tenderness bilaterally, no erythema or swelling. No purulent nasal discharge or nasal turbinate edema. Posterior oropharynx normal without erythema or exudates or asymmetry. normocephalic and atraumatic Eyes PERRL and EOMs intact bilaterally Neck full ROM, No nuchal rigidity, no lymphadenopathy, supple, no meningeal signs and no JVD Resp normal respiratory effort, normal air movement, no retractions and no use of accessory muscles Effort and Inspection: able to speak in complete sentences and symmetric chest movement Auscultation: wheezes expiratory wheezes (end only, mild) and throughout; Negative for crackles, rales or rhonchi Cardio regular rate, regular rhythm and no murmurs GI non-tender and non-distended Auscultation: normoactive bowel sounds Palpation: soft Back/Spine no CVA tenderness General Back: other FROM Extremity normal to inspection General Extremety ED: Negative for edema, pulses abnormal or tenderness General Extremity: Negative for edema or pulses abnormal Neuro oriented x3, CN's II-XII intact bilaterally and no sensory deficits noted Sensorium / Orientation: awake and alert Motor Exam: strength 5/5 throughout Skin no rashes or lesions noted and no wounds MDM MDM MDM Narrative Medical decision making narrative: Patient feels much better after albuterol aerosol treatment. Her vital signs are normal, she is not hypoxic, she has no evidence of bacterial disease, and given that her daughter recently had the same symptoms, with whom she had close contact, this is likely viral in etiology. Her daughter tested negative for Covid, I recommended sending an outpatient PCR to verify that the patient is negative and she is in agreement with that. That was done, she was given a prescription for albuterol and supportive care advised continuing decongestants as needed. She is comfortable with that plan. Radiography Chest X-Ray - ED: 1 View, Read by ED Physician, Normal and No Acute Disease Diagnostic Testing: Radiology Impression Chest X-Ray 03/20/21 17:05 IMPRESSION: No radiographic evidence of acute cardiopulmonary disease. at 1721 Reported and signed by: Erick Cotter MD Electronically Signed: Erick Cotter MD at 17:20 EDT Tel , Service support , EKG Initial EKG: Attestation: I personally reviewed and interpreted this EKG as follows: Interpretation: Sinus Rhythm Comments: Normal EKG Discharge Plan Triage Chief Complaint: Chest Pain ED Provider: Isaac Pride Dx/Rx/DC Orders Clinical Impression: Acute wheezy bronchitis Instructions: ED Bronchitis with Wheezing (Adult) Prescriptions: New albuterol sulfate [Ventolin HFA] 1 INHALER inhaler 1 - 2 puff inhalation Q4H PRN PRN (Reason: Wheezing) Qty: 1 RF: 0 No Action omeprazole 40 mg capsule,delayed release(DR/EC) 40 mg PO DAILY RF: 0 sertraline [Zoloft] 25 mg tablet 25 mg PO DAILY RF: 0 sumatriptan succinate [Imitrex] 25 mg tablet See Rx Instructions PO .COMPLEX RF: 0 hydrochlorothiazide 25 MG tablet 25 mg PO DAILY RF: 0 cholecalciferol (vitamin D3) 1,000 UNIT tablet 5,000 unit PO DAILY RF: 0 albuterol sulfate 1 INHALER inhaler 1 - 2 puff INHALATION Q6H PRN PRN (Reason: COPD) RF: 0 ibuprofen 800 MG tablet 800 mg PO BID RF: 0 metformin 500 MG tablet extended release 24 hr 500 mg PO DAILY RF: 0 Primary Care Provider: Care Physician,No Primary Referrals: Doctor,Your [STAFF PHYSICIAN] - 1 Week if not improving Disposition Disposition: Home, self care
[2021-03-20] MEDS: Albuterol 2.5 MG/3 ML VIAL.NEB. INHALATION (16:52)
[2021-03-20 16:53] VITALS: PULSE 85; RESP 16
--- NOTE | 2021-03-20 17:05 | RAD_ITS ---
HISTORY: cough/sob EXAMINATION/TECHNIQUE: XR Chest 1 View: Portable upright AP chest x-ray COMPARISON: November 2020 FINDINGS: LINES/DEVICES: None. LUNGS: No consolidation, edema or effusion. No pneumothorax. MEDIASTINUM AND CARDIOVASCULAR STRUCTURES: Cardiac silhouette not enlarged. Central airways and mediastinal contour are unremarkable. BONES AND SOFT TISSUES: No acute bony abnormalities. RAD/Chest 1 View (Portable) IMPRESSION: No radiographic evidence of acute cardiopulmonary disease. at 1721 Reported and signed by: Erick Cotter MD Electronically Signed: Erick Cotter MD at 17:20 EDT Tel , Service support ,
[2021-03-20 17:21] VITALS: BP 140/74; PULSE 87; RESP 16; O2SAT 96
[2021-03-20 19:13] VITALS: BP 142/85; PULSE 86; RESP 15; O2SAT 99
== END 2021-03-20 19:15 | disposition home or self-care (01) ==
PROVIDERS: Emergency Provider Emergency Medicine
DX: J20.9 Acute bronchitis, unspecified (principal); J44.0 Chronic obstructive pulmonary disease with (acute) lower respiratory infection; I10 Essential (primary) hypertension; K21.9 Gastro-esophageal reflux disease without esophagitis; G47.33 Obstructive sleep apnea (adult) (pediatric); E11.9 Type 2 diabetes mellitus without complications; I25.2 Old myocardial infarction; Z87.891 Personal history of nicotine dependence; Z79.1 Long term (current) use of non-steroidal anti-inflammatories (NSAID); Z79.84 Long term (current) use of oral hypoglycemic drugs; Z79.899 Other long term (current) drug therapy; Z86.718 Personal history of other venous thrombosis and embolism; Z87.442 Personal history of urinary calculi
CPT/HCPCS: 71045; 87635; 93005; 94640; 99285; U0005; A4216; U0003

== ENCOUNTER 2021-05-01 13:21 | Emergency (ER) | payer OTHER, SELFPAY ==
[2021-05-01 13:23] VITALS: BP 130/71; PULSE 90; RESP 18; TEMP 35.9; O2SAT 95; BMI 43.6
--- NOTE | 2021-05-01 14:30 | EKG12_ITS ---
Test Reason : CP Blood Pressure : / mmHG Vent. Rate : 086 BPM Atrial Rate : 086 BPM P-R Int : 140 ms QRS Dur : 076 ms QT Int : 398 ms P-R-T Axes : 018 048 034 degrees QTc Int : 476 ms Normal sinus rhythm Normal ECG Confirmed by AMANDA ROCHA, RIVERA ([id number]), purchasing expeditor REYNA CAMPA ([id number]) on 05/05/2021 9:45:45 AM Referred By: MILY Confirmed By:CHIP PATEL MD
--- NOTE | 2021-05-01 14:40 | RAD_ITS ---
STUDY: X-RAY CHEST REASON FOR EXAM: Female, 45 years old. Palpitations . Headaches. TECHNIQUE: Single AP portable view of the chest. COMPARISON: Comparison is made with prior study dated 03/20/2021. FINDINGS: EKG electrodes are seen. The lungs are clear and expanded. There is no demonstrated pleural abnormality. Normal size heart. Normal mediastinum and jessi. Normal visualized pulmonary arteries. Normal visualized aortic arch and descending thoracic aorta. Normal visualized thoracic spine. Normal visualized ribs, clavicles, and shoulders. There is no demonstrated abnormality of the visualized soft tissue structures of the upper abdomen. RAD/Chest 1 View (Portable) IMPRESSION: Normal x-ray examination of the chest. Electronically Signed: Santhosh Morse MD at 15:05 EDT , Service support ,
--- NOTE | 2021-05-01 14:43 | CT_ITS ---
STUDY: CT BRAIN WITHOUT CONTRAST REASON FOR EXAM: Female, 45 years old. Headache RADIATION DOSAGE (If Supplied By Facility): CTDIvol = ( 44.99 ) mGy, DLP = ( 796.11 ) mGycm TECHNIQUE: Transaxial CT imaging of the brain was performed without administration of intravenous contrast material. Individualized dose optimization techniques were used for this CT. COMPARISON: Comparison is made with prior study dated 04/14/2020. FINDINGS: Normal soft tissue structures. Normal calvarium. Normal size ventricles and extra-axial spaces for the patient''s age. Normal white matter tracts of the cerebral hemispheres. Normal basal ganglia and thalami. Normal brainstem. Normal cerebellum. There is no intracranial hemorrhage. There are no findings of an acute ischemic infarction. Normal visualized paranasal sinuses. CT/Brain/Head without Contrast IMPRESSION: Normal unenhanced CT scan of the brain. Electronically Signed: Santhosh Morse MD at 15:04 EDT , Service support ,
[2021-05-01 15:10] VITALS: BP 127/66; PULSE 86; RESP 18; O2SAT 97
[2021-05-01 15:16] LABS: Absolute Lymphocyte Count 1.79 X10^3/uL (0.83-4.51); Absolute Neutrophil Count 4.7 X10^3/uL (2.0-7.7); Basophil# 0.05 X10^3/uL; Basophil% 0.7 % (0-1); Eosinophil# 0.13 X10^3/uL; Eosinophils% 1.8 % (0-5); Hematocrit 36.8 % (37-47); Hemoglobin 12.5 g/dL (12.0-15.0); Lymphocyte # 1.79 X10^3/ul (0.83-4.51); Lymphocyte % 25.4 % (19-41); Mean Corpuscular Hgb 30.1 pg (27.0-32.0); Mean Corpuscular Volume 88.7 fL (81-99); Mean Platelet Vol. 10.7 fl (6.2-12.0); Monocyte# 0.41 X10^3/uL; Monocyte% 5.8 % (0-10); NRBC Flagged by Analyzer 0 % (0-5); Neutrophil # 4.66 X10^3/uL (2.7-7.7); Neutrophil % 66.2 % (47-70); Platelet Count 207 K/mm3 (150-450); RBC Distribution Width CV 12.4 % (11.6-14.6); RBC Distribution Width SD 39.7 fl (35.1-43.9); Red Blood Count 4.15 M/mm3 (4.2-5.4); White Blood Count 7.1 K/mm3 (4.4-11.0)
[2021-05-01] MEDS: 0.9% Normal Saline 1,000 ML 1000 ML IV (15:27)
[2021-05-01 15:36] LABS: Bacteria 0 SEEN /hpf (None Seen); Mucous, Urine 0 SEEN /hpf (<or=2+); Red Blood Cells-Urine 0 SEEN /hpf (0-5); White Blood Cells 0 SEEN /hpf (0-5)
[2021-05-01 15:41] LABS: Color, Urine Yellow (Yellow); Glucose, Dipstick Normal (Normal); Ketone-Dipstick Negative (Negative); Leukocyte Esterase-Dipstick Negative /ul (Negative); Nitrite-Dipstick Negative (Negative); Occult Blood-Urine Negative /ul (Negative); Protein-Dipstick Negative (Negative); Specific Gravity, Urine 1.015 (1.002-1.030); Urine Bilirubin Dipstick Negative (Negative); Urine Clarity Sl. Cloudy (Clear); Urine Urobilinogen Normal (Normal)
[2021-05-01 15:45] LABS: ALB/GLOB Ratio 0.9 RATIO (0.9-2.4); AST(SGOT) 23 U/L (15-37); Alanine Aminotransfer ALT/SGPT 42 U/L (13-56); Albumin, Serum 3.1 g/dL (3.2-5.0); Alkaline Phosphatase 61 U/L (45-117); Anion Gap 8 (5-15); BUN 13 mg/dL (7-18); BUN/Creat Ratio 14.2 RATIO (10-20); Calcium,Total 8.2 mg/dL (8.5-10.1); Chloride 102 mmol/L (98-107); Creatinine, Serum 0.92 mg/dL (0.55-1.02); EST Glomerular Filtration Rate 71 mL/min (>60); Est Glom Filt Rate - Afr Amer 86 mL/min (>60); Estimated Creatinine Clearance 68.09 ml/min; Globulin 3.3 g/dL (2.2-4.2); Glucose 184 mg/dL (74-106); Potassium 3.3 mmol/L (3.5-5.1); Protein, Total 6.4 g/dL (6.4-8.2); Sodium Level 138 mmol/L (136-145); Troponin-I HS 3.9 pg/mL (3.0-53.7)
[2021-05-01 15:49] LABS: Squamous Epithelial Cells - UA 0-5 SEEN /hpf (5-10)
[2021-05-01] MEDS: Metoclopramide 10 MG/2 ML Vial IV (15:51)
[2021-05-01] MEDS: DiphenhydrAMINE 50 MG/ML Syringe 25 MG IV (15:51)
[2021-05-01 15:57] LABS: Lactic Acid 1.6 mmol/L (0.4-1.9)
[2021-05-01 16:07] VITALS: BP 123/48; PULSE 96; RESP 20; O2SAT 97
--- NOTE | 2021-05-01 17:04 | EDS_ITS ---
HPI History of Present Illness Chief Complaint: Headache Informant: patient Onset/Context/Timing Onset: Yesterday Context: Gradual Onset Timing: Continuous Quality: Throbbing, aching Location: Frontal Worsened by: Nothing Relieved by: Nothing Narrative Narrative: Patient presents with headache, cough, nausea, and palpitations that began yesterday. Patient states this has gradually gotten worse. Patient states her headache is over the frontal area. Patient describes it as throbbing. Patient also admits to some aching pain in her left shoulder. Patient states nothing makes it better nothing makes it worse. Patient admits to nausea but denies any vomiting. Patient does admit to some tingling in his left arm. [facility] Medical History Arthritis Asthma Breathing-related sleep disorder COPD (chronic obstructive pulmonary disease) Essential (primary) hypertension Former smoker GERD (gastroesophageal reflux disease) History of deep venous thrombosis Hx of renal calculi Migraines Myopericarditis Nephrolithiasis Nicotine dependence in remission Non-STEMI (non-ST elevated myocardial infarction) (07/2008) Obesity Obstructive sleep apnea cardiomyopathy Pulmonary embolus (07/2008) Pulmonary nodule Stomach ulcer Type 2 diabetes mellitus Home Medications hydrochlorothiazide 25 mg PO DAILY 12/30/15 [History Last Taken Unknown] cholecalciferol (vitamin D3) 5,000 unit PO DAILY 07/30/19 [History Last Taken Unknown] omeprazole 40 mg capsule,delayed release 40 mg PO DAILY 11/15/19 [History Last Taken 12/22/19 07:00] albuterol sulfate 1 - 2 puff INHALATION Q6H PRN PRN 12/14/19 [History Last Taken Unknown] ibuprofen 800 mg PO BID 04/14/20 [History Last Taken Unknown] metformin 500 mg PO DAILY 11/10/20 [History Last Taken Unknown] sertraline 25 mg tablet 25 mg PO DAILY 12/24/20 [History Last Taken Unknown] sumatriptan succinate 25 mg tablet See Rx Instructions PO .COMPLEX 12/24/20 [History Last Taken Unknown] albuterol sulfate [Ventolin HFA] 1 - 2 puff INHALATION Q4H PRN PRN #1 inhaler 03/20/21 [Rx Last Taken Unknown] Allergy/AdvReac Type Severity Reaction Status Date / Time Penicillins Allergy Rash Verified 05/01/21 13:23 tramadol Allergy Rash Verified 05/01/21 13:23 Family History Mother Diabetes Hypertension Cancer Uterine cancer Pancreatitis Father Diabetes Heart disease Hypertension Daughter Hearing loss Other CVA (cerebral vascular accident) Gout Surgical History H/O: hysterectomy History of left heart catheterization (07/2008) History of shoulder surgery Hx of cholecystectomy Hx of tympanostomy tubes Social History Smoking Status: Former smoker second hand exposure: No alcohol intake: current alcohol intake frequency: 0-2 drinks per day details: social substance use type: does not use caffeine: Yes what type of physical activity do you participate in: none and walking seatbelt use: always do you feel safe at home: Yes additional social history: Patient works at the [employer] ED Constitutional Constitutional ED: Denies chills or fever(s) Eyes Eyes: Denies blurry vision or change in vision ENT ENT ED: Denies rhinorrhea or sore throat Cardiovascular Cardiovascular: Reports palpitations; Denies chest pain Respiratory/Chest Respiratory/Chest: Reports cough; Denies dyspnea Gastrointestinal Gastrointestinal: Reports nausea; Denies vomiting Genitourinary Genitourinary ED: Denies dysuria or hematuria Musculoskeletal Musculoskeletal: Denies back pain or neck pain Integumentary Reports rash; Denies abscess Neurologic Neurologic: Reports paresthesias LUE; Denies headache(s) or weakness Allergic/Immunologic Allergic/Immunologic ED: Denies mouth swelling or urticaria EXAM Physical Exam Const Vital Signs: 05/01/21 13:23 05/01/21 15:10 05/01/21 15:28 Temperature 96.7 F L Temperature Source Temporal Pulse Rate 90 86 Respiratory Rate 18 18 Respiratory Effort Normal Respiratory Pattern Normal Blood Pressure 130/71 H 127/66 H Blood Pressure Mean 90 86 Pulse Ox 95 97 Oxygen Delivery Method Room Air Room Air 05/01/21 16:07 Temperature Temperature Source Pulse Rate 96 Respiratory Rate 20 H Respiratory Effort Respiratory Pattern Blood Pressure 123/48 H Blood Pressure Mean 73 Pulse Ox 97 Oxygen Delivery Method Room Air Positive well nourished and well developed General Appearance ED: well developed HEENT Reports moist mucous membranes Neck supple and no JVD Resp normal respiratory effort and clear to auscultation bilaterally Cardio regular rate and regular rhythm GI normal to inspection, nondistended, normoactive bowel sounds and non-tender Palpation: soft Extremity normal to inspection General Extremety ED: Negative for edema or tenderness General Extremity: Negative for edema Neuro oriented x3, CN's II-XII intact bilaterally and no sensory deficits noted Sensorium / Orientation: alert Motor Exam: strength 5/5 throughout Psych mental status grossly normal MDM MDM MDM Narrative Medical decision making narrative: EKG was obtained. On my interpretation, it showed a normal sinus rhythm with a rate of 86. MA interval, QRS interval, and QTc intervals were all normal. [place] was normal. There are no acute ST or T wave changes. Portable 1 view chest x-ray was obtained. On my interpretation, lung layton are clear. There is normal cardiac silhouette. Bony thorax is normal. There is no acute process noted. Radiologist also interpreted the x- ray and agrees. CT scan of the brain was obtained. There is no acute intracranial abnormality. This was interpreted by the radiologist and reviewed by myself. CBC and comprehensive metabolic profile were within normal limits. Lactate was normal. Urinalysis does not show any evidence of urinary tract infection. Patient was given IV fluids, Reglan, and Benadryl. Patient is feeling better on reevaluation. Patient was instructed to drink plenty of fluids. Patient was instructed to rest at home. Patient was instructed to follow-up with her primary care physician in 5 to 7 days. Patient understood and was agreeable with the plan. All questions were answered. Lab Data Attestation: I reviewed the patient's lab results. Labs: Laboratory Results - last 24 hr 05/01/21 05/01/21 05/01/21 15:03 15:03 15:03 WBC 7.1 RBC 4.15 L Hgb 12.5 Hct 36.8 L MCV 88.7 MCH 30.1 MCHC 34.0 RDW Std Deviation 39.7 RDW Coeff of Paz 12.4 Plt Count 207 MPV 10.7 Immature Gran % (Auto) 0.100 Neut % (Auto) 66.2 Lymph % (Auto) 25.4 [place] % (Auto) 5.8 Eos % (Auto) 1.8 Baso % (Auto) 0.7 Absolute Neuts (auto) 4.7 Absolute Lymphs (auto) 1.79 Nucleated RBC % 0 Sodium 138 Potassium 3.3 L Chloride 102 Carbon Dioxide 28.0 Anion Gap 8 BUN 13 Creatinine 0.92 Estim Creat Clear Calc 68.09 Est GFR (MDRD) Af Amer 86 Est GFR (MDRD) Non-Af 71 BUN/Creatinine Ratio 14.2 Glucose 184 H Lactic Acid 1.6 Calcium 8.2 L Total Bilirubin 0.40 AST 23 ALT 42 Alkaline Phosphatase 61 Troponin I High Sens 3.9 Total Protein 6.4 Albumin 3.1 L Globulin 3.3 Albumin/Globulin Ratio 0.9 Urine Color Urine Clarity Urine pH Ur Specific [place] Urine Protein Urine Glucose (UA) Urine Ketones Urine Occult Blood Urine Nitrite Urine Bilirubin Urine Urobilinogen Ur Leukocyte Esterase Urine RBC Urine WBC Ur Squamous Epith Cells Urine Bacteria Urine Mucus 05/01/21 15:08 WBC RBC Hgb Hct MCV MCH MCHC RDW Std Deviation RDW Coeff of Paz Plt Count MPV Immature Gran % (Auto) Neut % (Auto) Lymph % (Auto) [place] % (Auto) Eos % (Auto) Baso % (Auto) Absolute Neuts (auto) Absolute Lymphs (auto) Nucleated RBC % Sodium Potassium Chloride Carbon Dioxide Anion Gap BUN Creatinine Estim Creat Clear Calc Est GFR (MDRD) Af Amer Est GFR (MDRD) Non-Af BUN/Creatinine Ratio Glucose Lactic Acid Calcium Total Bilirubin AST ALT Alkaline Phosphatase Troponin I High Sens Total Protein Albumin Globulin Albumin/Globulin Ratio Urine Color Yellow Urine Clarity Sl. Cloudy Urine pH 6.0 Ur Specific [place] 1.015 Urine Protein Negative Urine Glucose (UA) Normal Urine Ketones Negative Urine Occult Blood Negative Urine Nitrite Negative Urine Bilirubin Negative Urine Urobilinogen Normal Ur Leukocyte Esterase Negative Urine RBC 0 SEEN Urine WBC 0 SEEN Ur Squamous Epith Cells 0-5 SEEN Urine Bacteria 0 SEEN Urine Mucus 0 SEEN Radiography Diagnostic Testing: Radiology Impression Chest X-Ray 05/01/21 14:40 IMPRESSION: Normal x-ray examination of the chest. Electronically Signed: Santhosh Morse MD at 15:05 EDT , Service support , Brain CT 05/01/21 14:43 IMPRESSION: Normal unenhanced CT scan of the brain. Electronically Signed: Santhosh Morse MD at 15:04 EDT , Service support , EKG Initial EKG: Attestation: I personally reviewed and interpreted this EKG as follows: Interpretation: Sinus Rhythm (86) and No Acute Injury Pattern Discharge Plan Triage Chief Complaint: Headache Other Complaint: Chest Pain Hypertension ED Provider: Jean Marie Hyatt Dx/Rx/DC Orders Clinical Impression: Viral illness Instructions: ED Viral Syndrome (Adult) Prescriptions: No Action omeprazole 40 mg capsule,delayed release(DR/EC) 40 mg PO DAILY RF: 0 sertraline [Zoloft] 25 mg tablet 25 mg PO DAILY RF: 0 sumatriptan succinate [Imitrex] 25 mg tablet See Rx Instructions PO .COMPLEX RF: 0 hydrochlorothiazide 25 MG tablet 25 mg PO DAILY RF: 0 cholecalciferol (vitamin D3) 1,000 UNIT tablet 5,000 unit PO DAILY RF: 0 albuterol sulfate 1 INHALER inhaler 1 - 2 puff INHALATION Q6H PRN PRN (Reason: COPD) RF: 0 ibuprofen 800 MG tablet 800 mg PO BID RF: 0 metformin 500 MG tablet extended release 24 hr 500 mg PO DAILY RF: 0 albuterol sulfate [Ventolin HFA] 1 INHALER inhaler 1 - 2 puff inhalation Q4H PRN PRN (Reason: Wheezing) Qty: 1 RF: 0 Primary Care Provider: Care Physician,No Primary Referrals: Brigette Adkins MD [STAFF PHYSICIAN] - 5-7 Days Care Physician,No Primary [Primary Care Provider] - Disposition Disposition: Home, Self Care
[2021-05-01 17:20] VITALS: BP 138/71; PULSE 88; RESP 14; O2SAT 98
== END 2021-05-01 17:21 | disposition home or self-care (01) ==
PROVIDERS: Emergency Provider Emergency Medicine
DX: B34.9 Viral infection, unspecified (principal); R51.9 Headache, unspecified; R07.9 Chest pain, unspecified; I10 Essential (primary) hypertension; Z87.891 Personal history of nicotine dependence; Z90.49 Acquired absence of other specified parts of digestive tract; E11.9 Type 2 diabetes mellitus without complications; J44.9 Chronic obstructive pulmonary disease, unspecified; K21.9 Gastro-esophageal reflux disease without esophagitis; G47.33 Obstructive sleep apnea (adult) (pediatric); Z86.718 Personal history of other venous thrombosis and embolism; Z79.1 Long term (current) use of non-steroidal anti-inflammatories (NSAID); Z79.84 Long term (current) use of oral hypoglycemic drugs; Z87.442 Personal history of urinary calculi
CPT/HCPCS: 70450; 71045; 80053; 81001; 83605; 84484; 85025; 93005; 96374; 96375; 99284; J7030; A4216

== ENCOUNTER → 2021-05-30 09:13 | Outpatient (CLI) | payer OTHER, SELFPAY ==
[2021-05-29 14:49] VITALS: BMI 41.8
[2021-05-30 12:39] LABS: Vitamin D,25 Hydroxy 39.7 ng/mL
[2021-05-30 13:02] LABS: Cholesterol 231 mg/dL (200); Free T3 2.9 pg/mL (2.18-3.98); High Density Lipoprotein 39 mg/dL; Magnesium 2.2 mg/dL (1.6-2.6); Triglycerides 177 mg/dL; Very Low Density Lipoprotein 35 mg/dL (5-40)
== END ==
PROVIDERS: PCP Internal Medicine; Referring Provider Internal Medicine; Visit Provider Internal Medicine
DX: E55.9 Vitamin D deficiency, unspecified (principal); I10 Essential (primary) hypertension; E66.01 Morbid (severe) obesity due to excess calories
CPT/HCPCS: 36415; 80061; 82306; 83735; 84439; 84443; 84481

== ENCOUNTER → 2021-08-13 08:46 | Outpatient (CLI) | payer OTHER, SELFPAY ==
--- NOTE | 2021-08-13 08:48 | BI_ITS ---
MAMMOGRAPHY - BILATERAL SCREENING REASON FOR EXAM: Female, 46 years old. Routine annual screening examination. PERTINENT HISTORY: Aunts with breast cancer. TECHNIQUE: Digital bilateral breast ramiro (3D mammographic acquisition) in the CC and MLO projections. 2-D mediolateral oblique (MLO) and craniocaudad (CC) views of both breasts were obtained. CAD: Full Field Digital Mammography with Computer Added Detection was performed. COMPARISON: Comparison is made with prior study dated 02/12/2020 and 02/09/2019. FINDINGS: Breast Composition: There are scattered areas of fibroglandular density. There are no dominant masses or suspicious calcifications. Stable small bilateral axillary lymph nodes. No other significant abnormalities are identified. There has been no significant change since the prior study. BI/SCRN MAMM (CAD)W/RAMIRO BILAT IMPRESSION: Stable bilateral screening mammogram. Yearly follow-up mammogram recommended. (A) ASSESSMENT CATEGORY: BIRADS Category 2: Benign. A letter regarding these results will be sent to the patient by the facility within 30 days. Approximately 10% of breast cancers are not detected by mammography. A normal mammogram should not delay biopsy of a clinically suspicious abnormality. [id number] Electronically Signed: Santhosh Morse MD at 12:32 EDT , Service support ,
== END ==
PROVIDERS: PCP Internal Medicine; Referring Provider Nurse Practitioner Women's Health; Visit Provider Nurse Practitioner Women's Health
DX: Z12.31 Encounter for screening mammogram for malignant neoplasm of breast (principal); Z80.3 Family history of malignant neoplasm of breast
CPT/HCPCS: 77063; 77067

== ENCOUNTER 2021-09-18 13:27 | Emergency (ER) | payer OTHER, SELFPAY ==
[2021-09-18 13:27] VITALS: BP 142/104; PULSE 92; RESP 18; TEMP 36.6; O2SAT 96; BMI 44.5
--- NOTE | 2021-09-18 16:10 | CT_ITS ---
STUDY: CT LEFT SHOULDER WITH CONTRAST REASON FOR EXAM: Female, 46 years old. left axillary absces ?? Diabetics, pain and fever. RADIATION DOSAGE (If Supplied By Facility): CTDIvol = ( 38.12 ) mGy, DLP = ( 936.03 ) mGycm TECHNIQUE: The patient was scanned in a multi detector CT scanner. High resolution transaxial imaging was performed after the administration of intravenous contrast material. Sagittal and coronal images were reconstructed. Individualized dose optimization techniques were used for this CT. COMPARISON: Left shoulder x-ray dated APRIL 14, 2020 FINDINGS: Diffuse left axillary lymphadenopathy is present with numerous lymph nodes of varying size. The largest lymph node which retains its fatty hilus and reniform shape measures 4.21 x 2.21 cm in diameter. No mass or fluid collection or cyst is present. Hazy stranding is seen around the lymph nodes indicate an inflammatory/infectious process. The visualized aspects of the left lung are clear. Normal glenohumeral articulation. Normal glenoid rim, neck and visualized scapula. Normal humeral head, neck and tuberosities. Normal coracoid process. Normal visualized lateral clavicle. Normal acromioclavicular articulation. There is a Type II morphology (curved), with a neutral orientation. No fracture or evidence of osteomyelitis. Normal visualized muscles and remaining soft tissue structures. CT/Extremity Upper WITH Contrast IMPRESSION: 1. Diffuse left axillary lymphadenopathy is present with numerous lymph nodes of varying size. The largest lymph node which retains its fatty hilus and reniform shape measures 4.21 x 2.21 cm in diameter. No mass or fluid collection or cyst is present. 2. Hazy stranding is seen around the lymph nodes indicate an inflammatory/infectious process. The visualized aspects of the left lung are clear. Electronically Signed: Robert Mayorga MD at 18:17 EST , Service support ,
--- NOTE | 2021-09-18 16:13 | EDS_ITS ---
HPI History of Present Illness Chief Complaint: Abscess Informant: patient Onset/Context/Timing Onset: Days Context: Gradual Onset Timing: Continuous Current Severity: Mild Maximum Severity: Mild Narrative Narrative: 46 diabetic female who states last 4 days she has had pain in her left axilla. Saw her physician recruitment and outreach assistant who told her to do warm compresses. Its only gotten worse and today she had a fever 100.2. And nausea vomiting. She is never had axillary abscess before. Prior similar symptoms: No PFSH PFSH Medical History Arthritis Asthma Breathing-related sleep disorder COPD (chronic obstructive pulmonary disease) Essential (primary) hypertension Former smoker GERD (gastroesophageal reflux disease) History of deep venous thrombosis Hx of renal calculi Migraines Myopericarditis Nephrolithiasis Nicotine dependence in remission Non-STEMI (non-ST elevated myocardial infarction) (07/2008) Obesity Obstructive sleep apnea cardiomyopathy Pulmonary embolus (07/2008) Pulmonary nodule Stomach ulcer Type 2 diabetes mellitus Vitamin D deficiency Home Medications hydrochlorothiazide 25 mg PO DAILY 12/30/15 [History Last Taken Unknown] omeprazole 40 mg capsule,delayed release 40 mg PO DAILY 11/15/19 [History Last Taken 12/22/19 07:00] metformin 500 mg PO DAILY 11/10/20 [History Last Taken Unknown] sertraline 25 mg tablet 25 mg PO DAILY 12/24/20 [History Last Taken Unknown] albuterol sulfate [Ventolin HFA] 1 - 2 puff INHALATION Q4H PRN PRN #1 inhaler 03/20/21 [Rx Last Taken Unknown] Keto Packets PO 05/29/21 [History Last Taken Unknown] blood sugar diagnostic #100 ea 05/29/21 [Rx Last Taken Unknown] blood-glucose meter #1 ea 05/29/21 [Rx Last Taken Unknown] lancets 32 gauge #100 ea 05/29/21 [Rx Last Taken Unknown] multivitamin 1 tab PO DAILY 05/29/21 [History Last Taken Unknown] sumatriptan succinate 25 mg tablet See Rx Instructions PO .COMPLEX 05/29/21 [History Last Taken Unknown] temazepam 15 mg capsule 15 mg PO QHS PRN 05/29/21 [History Last Taken Unknown] azithromycin 250 mg tablet See Rx Instructions PO .COMPLEX #6 tab 08/04/21 [Rx Last Taken Unknown] clindamycin HCl [Cleocin HCl] 300 mg PO Q6H #40 cap 09/18/21 [Rx Last Taken Unknown] Allergy/AdvReac Type Severity Reaction Status Date / Time Penicillins Allergy Rash Verified 09/18/21 13:31 Family History Mother Diabetes Hypertension Cancer Uterine cancer Pancreatitis Father Diabetes Heart disease Hypertension CVA (cerebral vascular accident) Daughter Hearing loss Grandmother CVA (cerebral vascular accident) Other Gout Surgical History H/O: hysterectomy History of left heart catheterization (07/2008) History of shoulder surgery Hx of cholecystectomy Hx of tympanostomy tubes Social History Smoking Status: Former smoker quit date: 10/18/12 Tobacco: How many years used: 20 second hand exposure: No alcohol intake: current alcohol intake frequency: 0-2 drinks per day details: social substance use type: does not use caffeine: Yes what type of physical activity do you participate in: none seatbelt use: always do you feel safe at home: Yes additional social history: Patient works at the [employer] ROS ED ROS Narrative Fever and left axillary pain. Review of Systems ROS Unobtainable: Denies due to encephalopathy Constitutional Constitutional ED: Reports fever(s) Eyes Eyes: Denies change in vision ENT ENT ED: Denies ear pain or sore throat Cardiovascular Cardiovascular: Denies chest pain Respiratory/Chest Respiratory/Chest: Denies cough or dyspnea Gastrointestinal Gastrointestinal: Reports nausea and vomiting; Denies abdominal pain Genitourinary Genitourinary ED: Denies dysuria Musculoskeletal Musculoskeletal: Denies myalgias Integumentary Denies rash Neurologic Neurologic: Denies headache(s) Psychiatric Psychiatric: Denies depression Endocrine Endocrinology: Denies polyuria Allergic/Immunologic Allergic/Immunologic ED: Denies urticaria EXAM Physical Exam Narrative Exam Narrative: Patient with no acute distress vital signs stable afebrile does not look septic or toxic. HEENT exam unremarkable. Moist remembers. Neck nontender. Lungs with auscultation bilaterally. Heart regular rhythm no murmur. Abdomen soft nontender normal bowel sounds no peritoneal signs. Moving all 4 extremities. Nontender no edema. Left axilla fullness tenderness possibly a subcu abscess but not visible from the skin. There is no cellulitis. Neurologically she is awake alert with no focal motor deficits Const Vital Signs: 09/18/21 13:27 09/18/21 16:56 Temperature 97.8 F Temperature Source Temporal Pulse Rate 92 85 Respiratory Rate 18 14 Blood Pressure 142/104 H 122/60 H Blood Pressure Mean 116 80 Pulse Ox 96 95 Oxygen Delivery Method Room Air Room Air Positive well nourished, well developed and obese; Negative for cachectic, contractures or unkempt General Appearance ED: well developed and NAD; Negative for unkempt, cachectic, contractures, cyanotic, diaphoretic or pallor Nutritional Appearance: obese; Negative for cachectic HEENT Reports moist mucous membranes Negative for trauma or tenderness Eyes PERRL and EOMs intact bilaterally Neck no lymphadenopathy, supple and no JVD General: Negative for tenderness Chest Wall inspection of chest normal and palpation of chest normal Resp normal respiratory effort and clear to auscultation bilaterally Effort and Inspection: Negative for pain with movement Auscultation: Negative for rales, rhonchi or wheezes Cardio regular rate, regular rhythm, S1 normal heart sound, S2 normal heart sound and no murmurs GI normal to inspection, nondistended, normoactive bowel sounds, non-tender, non- distended and no masses Auscultation: normoactive bowel sounds Palpation: soft; Negative for tender, guarding or rebound tenderness present Back/Spine no CVA tenderness General Back: Negative for CVA tenderness Extremity normal to inspection Extremity Narrative: Left axilla tender fullness possible abscess versus lymphadenopathy or both. Not visible from the skin. No cellulitis. General Extremety ED: Yes tenderness Neuro oriented x3 Sensorium / Orientation: alert; Negative for orientation impaired, lethargic or stuporous Motor Exam: strength 5/5 throughout Psych mental status grossly normal Appearance: Negative for unkempt Skin no rashes or lesions noted and no wounds General Skin Exam: Negative for jaundice or pallor MDM MDM MDM Narrative Medical decision making narrative: 46-year-old diabetic female suspected left axillary abscess. But not visible from the skin. The patient's body habitus I am getting get imaging because I cannot cut them to this blindly to try to incise and drain it. CAT scan be obtained with labs. Should be started on IV clindamycin she has an allergy to penicillin. Repeat exam patient is doing well at 8 PM. I went over all of her test results and CAT scan with her. She knows nothing to drain at this time. She will be continued on antibiotic clindamycin due to her allergies. Should be taken is 4 times a day for 10 days. She did get an IV dose here. She knows she needs to follow-up with her primary care provider and the physician overseeing that physician recruitment and outreach assistant. She knows return if worse. There is no other signs of any other lymphadenopathy so I think this is infected lymph nodes in her left axilla. There is no cervical lymphadenopathy nor in her groin nor in her right axilla. Lab Data Attestation: I reviewed the patient's lab results. Lab results narrative: CBC normal white count of 6 hemoglobin 13. Electrolytes potassium 3.3 gap of 6 normal BUN and creatinine. Glucose of 112. Labs: Laboratory Results - last 24 hr 09/18/21 09/18/21 16:30 16:30 WBC 6.2 RBC 4.47 Hgb 13.2 Hct 39.3 MCV 87.9 MCH 29.5 MCHC 33.6 RDW Std Deviation 41.0 RDW Coeff of Paz 12.8 Plt Count 207 MPV 10.1 Immature Gran % (Auto) 0.200 Neut % (Auto) 62.0 Lymph % (Auto) 26.6 Calhoun % (Auto) 6.2 Eos % (Auto) 4.2 Baso % (Auto) 0.8 Absolute Neuts (auto) 3.8 Absolute Lymphs (auto) 1.64 Nucleated RBC % 0 Sodium 140 Potassium 3.3 L Chloride 105 Carbon Dioxide 29.0 Anion Gap 6 BUN 11 Creatinine 0.81 Estim Creat Clear Calc 76.53 Est GFR (MDRD) Af Amer 99 Est GFR (MDRD) Non-Af 82 BUN/Creatinine Ratio 13.6 Glucose 112 H Calcium 8.7 Radiography Diagnostic Testing: Clinical Impression(s) from Imaging Studies Upper Extremity CT 09/18/21 16:10 IMPRESSION: 1. Diffuse left axillary lymphadenopathy is present with numerous lymph nodes of varying size. The largest lymph node which retains its fatty hilus and reniform shape measures 4.21 x 2.21 cm in diameter. No mass or fluid collection or cyst is present. 2. Hazy stranding is seen around the lymph nodes indicate an inflammatory/infectious process. The visualized aspects of the left lung are clear. Electronically Signed: Robert Mayorga MD at 18:17 EST , Service support , Discharge Plan Triage Chief Complaint: Abscess ED Provider: Josep Godwin Dx/Rx/DC Orders Clinical Impression: Acute lymphadenitis, History of diabetes mellitus, type II Instructions: Lymphadenopathy Prescriptions: New clindamycin HCl [Cleocin HCl] 300 mg capsule 300 mg PO Q6H Qty: 40 RF: 0 No Action omeprazole 40 mg capsule,delayed release(DR/EC) 40 mg PO DAILY RF: 0 sertraline [Zoloft] 25 mg tablet 25 mg PO DAILY RF: 0 multivitamin Tablet 1 tab PO DAILY RF: 0 temazepam 15 mg capsule 15 mg PO QHS PRNRF: 0 Keto Packets PO RF: 0 sumatriptan succinate [Imitrex] 25 mg tablet See Rx Instructions PO .COMPLEX RF: 0 (DME) blood sugar diagnostic Strip See Rx Instructions .ROUTE .MEDSUPPLY Qty: 100 RF: 1 (DME) blood-glucose meter Kit See Rx Instructions .ROUTE .MEDSUPPLY Qty: 1 RF: 0 (DME) lancets 32 gauge misc See Rx Instructions .ROUTE .MEDSUPPLY Qty: 100 RF: 1 azithromycin 250 mg tablet See Rx Instructions PO .COMPLEX Qty: 6 RF: 0 hydrochlorothiazide 25 MG tablet 25 mg PO DAILY RF: 0 metformin 500 MG tablet extended release 24 hr 500 mg PO DAILY RF: 0 albuterol sulfate [Ventolin HFA] 1 INHALER inhaler 1 - 2 puff inhalation Q4H PRN PRN (Reason: Wheezing) Qty: 1 RF: 0 Primary Care Provider: Selena Langston Referrals: Selena Langston PA-C [Primary Care Provider] - 3-5 Days Activity Restrictions/Additional Instructions: You have infected and swollen lymph nodes in your left armpit. There is no abscess at this time. Nothing to drain at this time. The antibiotic clindamycin 1 pill 4 times a day for the next 10 days. Please try to take one tonight before you go to bed. Tylenol and Motrin for pain. Follow-up with your primary care provider to ensure this is improving. Return to the emergency department if you are feeling a lot worse. This will take several days to start improving. Disposition Disposition: Home, Self Care
[2021-09-18] MEDS: morphine 8 MG/ML Syringe 6 MG IV (16:31)
[2021-09-18] MEDS: Ondansetron 4 MG/2 ML Vial IV ×2 (16:31→19:41)
[2021-09-18 16:36] LABS: Absolute Lymphocyte Count 1.64 X10^3/uL (0.83-4.51); Absolute Neutrophil Count 3.8 X10^3/uL (2.0-7.7); Basophil# 0.05 X10^3/uL; Basophil% 0.8 % (0-1); Eosinophil# 0.26 X10^3/uL; Eosinophils% 4.2 % (0-5); Hematocrit 39.3 % (37-47); Hemoglobin 13.2 g/dL (12.0-15.0); Lymphocyte # 1.64 X10^3/ul (0.83-4.51); Lymphocyte % 26.6 % (19-41); Mean Corp Hgb Conc 33.6 g/dL (32-36); Mean Corpuscular Hgb 29.5 pg (27.0-32.0); Mean Corpuscular Volume 87.9 fL (81-99); Mean Platelet Vol. 10.1 fl (6.2-12.0); Monocyte# 0.38 X10^3/uL; Monocyte% 6.2 % (0-10); NRBC Flagged by Analyzer 0 % (0-5); Neutrophil # 3.83 X10^3/uL (2.7-7.7); Platelet Count 207 K/mm3 (150-450); RBC Distribution Width CV 12.8 % (11.6-14.6); Red Blood Count 4.47 M/mm3 (4.2-5.4); White Blood Count 6.2 K/mm3 (4.4-11.0)
[2021-09-18 16:53] LABS: Anion Gap 6 (5-15); BUN 11 mg/dL (7-18); BUN/Creat Ratio 13.6 RATIO (10-20); Calcium,Total 8.7 mg/dL (8.5-10.1); Chloride 105 mmol/L (98-107); Creatinine, Serum 0.81 mg/dL (0.55-1.02); EST Glomerular Filtration Rate 82 mL/min (>60); Est Glom Filt Rate - Afr Amer 99 mL/min (>60); Estimated Creatinine Clearance 76.53 ml/min; Glucose 112 mg/dL (74-106); Potassium 3.3 mmol/L (3.5-5.1); Sodium Level 140 mmol/L (136-145)
[2021-09-18 16:56] VITALS: BP 122/60; PULSE 85; RESP 14; O2SAT 95
[2021-09-18] MEDS: Morphine 4 MG/ML Syringe 6 MG IV (17:23)
[2021-09-18 20:18] VITALS: BP 125/60; PULSE 81; PULSE 84; RESP 17; O2SAT 95
== END 2021-09-18 20:48 | disposition home or self-care (01) ==
PROVIDERS: Emergency Provider Emergency Medicine; PCP Family Medicine
DX: L04.9 Acute lymphadenitis, unspecified (principal); E11.9 Type 2 diabetes mellitus without complications; E55.9 Vitamin D deficiency, unspecified; E66.9 Obesity, unspecified; G47.33 Obstructive sleep apnea (adult) (pediatric); I10 Essential (primary) hypertension; J44.9 Chronic obstructive pulmonary disease, unspecified; K21.9 Gastro-esophageal reflux disease without esophagitis; M19.90 Unspecified osteoarthritis, unspecified site; Z79.84 Long term (current) use of oral hypoglycemic drugs; Z86.718 Personal history of other venous thrombosis and embolism; Z87.442 Personal history of urinary calculi; Z87.891 Personal history of nicotine dependence; Z88.0 Allergy status to penicillin
CPT/HCPCS: 73201; 80048; 85025; 99284; J7050; Q9967; A4216; J2405

== ENCOUNTER → 2021-09-29 12:14 | Outpatient (CLI) | payer OTHER, SELFPAY | PROVIDERS: PCP Family Medicine; Visit Provider Physician Assistant Surgical | DX: U07.1 COVID-19 (principal) | CPT/HCPCS: 87635; U0005; U0003 ==

== ENCOUNTER 2021-10-02 01:33 | Emergency (ER) | payer OTHER, SELFPAY ==
[2021-10-02 01:34] VITALS: BP 133/75; PULSE 100; RESP 18; TEMP 36.6; O2SAT 94; BMI 45.1
[2021-10-02 01:37] VITALS: BP 133/75; PULSE 99; RESP 18; TEMP 36.6; O2SAT 94
--- NOTE | 2021-10-02 02:03 | RAD_ITS ---
STUDY: X-RAY CHEST REASON FOR EXAM: Female, 46 years old. Cough TECHNIQUE: Single AP portable view of the chest. COMPARISON: 05/01/2021 FINDINGS: The lungs are clear and expanded. There is no demonstrated pleural abnormality. Normal size heart. Normal mediastinum and jessi. Normal visualized pulmonary arteries. Normal visualized aortic arch and descending thoracic aorta. Normal visualized thoracic spine. Normal visualized ribs, clavicles, and shoulders. There is no demonstrated abnormality of the visualized soft tissue structures of the upper abdomen. RAD/Chest 1 View (Portable) IMPRESSION: Normal x-ray examination of the chest. Electronically Signed: Eladio Evans MD at 2:27 EST Tel , Service support ,
[2021-10-02] MEDS: dexAMETHasone 4 MG Tablet 6 MG PO (02:14)
[2021-10-02 02:48] VITALS: PULSE 93; RESP 16
--- NOTE | 2021-10-02 03:25 | EDS_ITS ---
HPI History of Present Illness Chief Complaint: Shortness of Breath Narrative Narrative: Patient is a 46-year-old female with past medical history of COPD and asthma. She states she quit smoking approximately 8 years ago. She reports that she is 4 to 5 days into an illness that is presented with subjective fevers and chills nasal congestion cough and shortness of breath. She states she is not vaccinated and that multiple family members have similar symptoms and they have all tested positive for Covid. She states that she feels like her shortness of breath will worsen because of her past medical history and secondary to this presents for evaluation [facility] Medical History Arthritis Asthma Breathing-related sleep disorder COPD (chronic obstructive pulmonary disease) Essential (primary) hypertension Former smoker GERD (gastroesophageal reflux disease) History of deep venous thrombosis Hx of renal calculi Migraines Myopericarditis Nephrolithiasis Nicotine dependence in remission Non-STEMI (non-ST elevated myocardial infarction) (07/2008) Obesity Obstructive sleep apnea cardiomyopathy Pulmonary embolus (07/2008) Pulmonary nodule Stomach ulcer Type 2 diabetes mellitus Vitamin D deficiency Home Medications hydrochlorothiazide 25 mg PO DAILY 12/30/15 [History Last Taken Unknown] omeprazole 40 mg capsule,delayed release 40 mg PO DAILY 11/15/19 [History Last Taken 12/22/19 07:00] sertraline 25 mg tablet 25 mg PO DAILY 12/24/20 [History Last Taken Unknown] albuterol sulfate [Ventolin HFA] 1 - 2 puff INHALATION Q4H PRN PRN #1 inhaler 03/20/21 [Rx Last Taken Unknown] blood sugar diagnostic #100 ea 05/29/21 [Rx Last Taken Unknown] blood-glucose meter #1 ea 05/29/21 [Rx Last Taken Unknown] lancets 32 gauge #100 ea 05/29/21 [Rx Last Taken Unknown] multivitamin 1 tab PO DAILY 05/29/21 [History Last Taken Unknown] sumatriptan succinate 25 mg tablet See Rx Instructions PO .COMPLEX 05/29/21 [History Last Taken Unknown] temazepam 15 mg capsule 15 mg PO QHS PRN 05/29/21 [History Last Taken Unknown] dexamethasone [Decadron] 6 mg PO DAILY 10 Days #10 tab 10/02/21 [Rx Last Taken Unknown] promethazine-codeine 5 ml PO Q6H PRN 7 Days #140 ml 10/02/21 [Rx Last Taken Unknown] Allergy/AdvReac Type Severity Reaction Status Date / Time Penicillins Allergy Rash Verified 09/18/21 13:31 Family History Mother Diabetes Hypertension Cancer Uterine cancer Pancreatitis Father Diabetes Heart disease Hypertension CVA (cerebral vascular accident) Daughter Hearing loss Grandmother CVA (cerebral vascular accident) Other Gout Surgical History H/O: hysterectomy History of left heart catheterization (07/2008) History of shoulder surgery Hx of cholecystectomy Hx of tympanostomy tubes Social History Smoking Status: Former smoker quit date: 10/18/12 Tobacco: How many years used: 20 second hand exposure: No alcohol intake: current alcohol intake frequency: 0-2 drinks per day details: social substance use type: does not use caffeine: Yes what type of physical activity do you participate in: none seatbelt use: always do you feel safe at home: Yes additional social history: Patient works at the [employer] ED Constitutional Constitutional ED: Reports chills, fever(s) and subjective ENT ENT ED: Reports rhinorrhea and sore throat Cardiovascular Cardiovascular: Denies chest pain Respiratory/Chest Respiratory/Chest: Reports cough, dyspnea and sputum Gastrointestinal Gastrointestinal: Reports nausea; Denies abdominal pain, diarrhea or vomiting Genitourinary Genitourinary ED: Denies dysuria Musculoskeletal Musculoskeletal: Reports myalgias Integumentary Denies rash Neurologic Neurologic: Reports headache(s) Hematologic/Lymphatic Hematologic/Lymphatic: Denies easy bleeding or easy bruising EXAM Physical Exam Const Vital Signs: 10/02/21 01:34 10/02/21 01:37 10/02/21 02:48 Temperature 97.8 F 97.8 F Temperature Source Temporal Temporal Pulse Rate 100 99 93 Respiratory Rate 18 18 16 Respiratory Effort Normal Respiratory Depth Normal Respiratory Pattern Normal Normal Blood Pressure 133/75 H 133/75 H Blood Pressure Mean 94 94 Pulse Ox 94 94 Oxygen Delivery Method Room Air Room Air 10/02/21 03:43 Temperature Temperature Source Pulse Rate 89 Respiratory Rate 18 Respiratory Effort Respiratory Depth Respiratory Pattern Blood Pressure Blood Pressure Mean Pulse Ox 94 Oxygen Delivery Method Positive well nourished, well developed and obese General Appearance ED: well developed Nutritional Appearance: obese HEENT Reports moist mucous membranes HEENT Narrative: Cobblestoning the posterior pharynx consistent with sinus drainage but no airway edema or compromise Eyes PERRL and EOMs intact bilaterally Neck supple and no JVD Neck Narrative: Positive anterior cervical lymphadenopathy Resp normal respiratory effort Resp Narrative: Breath sounds are diminished throughout with diffuse expiratory wheeze Cardio regular rate and regular rhythm GI normal to inspection, nondistended, normoactive bowel sounds, non-tender, non- distended and no masses Auscultation: normoactive bowel sounds Palpation: soft Extremity normal to inspection Extremity Narrative: No asymmetric edema no pitting edema negative Homans' sign bilaterally Neuro oriented x3 and CN's II-XII intact bilaterally Sensorium / Orientation: alert Motor Exam: strength 5/5 throughout Psych mental status grossly normal Skin no rashes or lesions noted MDM MDM MDM Narrative Medical decision making narrative: Patient presented to the ER no acute respiratory distress and was satting in the mid 90s on room air. Based on her history of COPD and being overweight she would qualify for monoclonal antibody therapy especially as she states she is 4 to 5 days into her illness. I do not have access to her outpatient test and therefore order an x-ray and inpatient Covid at this time. X-ray revealed no acute lung pathology and Covid test was positive consistent with her symptoms as well as report of outpatient testing. At this time as she is not requiring supplemental oxygen and is in no acute respiratory distress she can be placed on Decadron and given a referral for monoclonal antibodies and is otherwise safe for discharge Radiography Diagnostic Testing: Clinical Impression(s) from Imaging Studies Chest X-Ray 10/02/21 02:03 IMPRESSION: Normal x-ray examination of the chest. Electronically Signed: Eladio Evans MD at 2:27 EST Tel , Service support , Discharge Plan Triage Chief Complaint: Shortness of Breath ED Provider: Von Sena Dx/Rx/DC Orders Clinical Impression: COVID-19 Instructions: Coronavirus Disease 2019 (COVID-19): Caring for Yourself or Others Prescriptions: New dexamethasone [Decadron] 6 mg tablet 6 mg PO DAILY 10 Days Qty: 10 RF: 0 promethazine-codeine 6.25-10 mg/5 mL syrup 5 ml PO Q6H PRN (Reason: cough) 7 Days Qty: 140 RF: 0 No Action omeprazole 40 mg capsule,delayed release(DR/EC) 40 mg PO DAILY RF: 0 sertraline [Zoloft] 25 mg tablet 25 mg PO DAILY RF: 0 multivitamin Tablet 1 tab PO DAILY RF: 0 temazepam 15 mg capsule 15 mg PO QHS PRN (Reason: Sleep) RF: 0 sumatriptan succinate [Imitrex] 25 mg tablet See Rx Instructions PO .COMPLEX RF: 0 (DME) blood sugar diagnostic Strip See Rx Instructions .ROUTE .MEDSUPPLY Qty: 100 RF: 1 (DME) blood-glucose meter Kit See Rx Instructions .ROUTE .MEDSUPPLY Qty: 1 RF: 0 (DME) lancets 32 gauge misc See Rx Instructions .ROUTE .MEDSUPPLY Qty: 100 RF: 1 hydrochlorothiazide 25 MG tablet 25 mg PO DAILY RF: 0 albuterol sulfate [Ventolin HFA] 1 INHALER inhaler 1 - 2 puff inhalation Q4H PRN PRN (Reason: Wheezing) Qty: 1 RF: 0 Other Ambulatory Orders: COVID Outpatient Monoclonal Antibody Referral (Routine) Timeframe: 1 Day Facility: [facility] - Location: [facility] Ordered By: Dr. Von Sena Primary Care Provider: Selena Langston Referrals: Selena Langston PA-C [Primary Care Provider] - Disposition Disposition: Home, Self Care Discharge Date/Time: 10/02/21 03:44
[2021-10-02 03:43] VITALS: PULSE 89; RESP 18; O2SAT 94
== END 2021-10-02 03:44 | disposition home or self-care (01) ==
PROVIDERS: Emergency Provider Emergency Medicine; PCP Family Medicine
DX: U07.1 COVID-19 (principal); E66.9 Obesity, unspecified; Z87.891 Personal history of nicotine dependence; J44.9 Chronic obstructive pulmonary disease, unspecified; E11.9 Type 2 diabetes mellitus without complications; G47.33 Obstructive sleep apnea (adult) (pediatric); I10 Essential (primary) hypertension; K21.9 Gastro-esophageal reflux disease without esophagitis; M19.90 Unspecified osteoarthritis, unspecified site; Z79.52 Long term (current) use of systemic steroids; Z86.718 Personal history of other venous thrombosis and embolism; Z87.442 Personal history of urinary calculi
CPT/HCPCS: 71045; 87426; 94640; 99283

== ENCOUNTER 2021-10-04 10:40 | Outpatient (CLI) | payer OTHER, SELFPAY ==
[2021-10-04 10:52] VITALS: BP 114/72; PULSE 82; RESP 16; TEMP 36.9; O2SAT 95; BMI 42.9
[2021-10-04] MEDS: 0.9% Saline Lock 10 ML Syringe IV (11:05)
[2021-10-04 11:36] VITALS: BP 111/67; PULSE 85; RESP 16; TEMP 37.1; O2SAT 94
[2021-10-04 12:35] VITALS: BP 129/74; PULSE 86; RESP 16; TEMP 37; O2SAT 95
== END 2021-10-04 12:35 | disposition home or self-care (01) ==
LOC: MS3OUT 10:40 → MS3 10:41
PROVIDERS: PCP Family Medicine; Referring Provider Nurse Practitioner Adult Health; Visit Provider Nurse Practitioner Adult Health
DX: Z23 Encounter for immunization (principal); U07.1 COVID-19
CPT/HCPCS: C9803; J7050; M0245; Q0245; A4216

== ENCOUNTER → 2022-07-01 | Outpatient (CLI) | payer BC, SELFPAY ==
[2022-07-01 12:34] LABS: Absolute Lymphocyte Count 1.69 X10^3/uL (0.83-4.51); Absolute Neutrophil Count 4.3 X10^3/uL (2.0-7.7); Basophil# 0.05 X10^3/uL; Basophil% 0.8 % (0-1); Eosinophil# 0.14 X10^3/uL; Eosinophils% 2.1 % (0-5); Hematocrit 41.1 % (37-47); Hemoglobin 13.7 g/dL (12.0-15.0); Lymphocyte # 1.69 X10^3/ul (0.83-4.51); Lymphocyte % 25.8 % (19-41); Mean Corp Hgb Conc 33.3 g/dL (32-36); Mean Corpuscular Hgb 29.7 pg (27.0-32.0); Mean Corpuscular Volume 89.2 fL (81-99); Mean Platelet Vol. 10.6 fl (6.2-12.0); Monocyte# 0.35 X10^3/uL; Monocyte% 5.3 % (0-10); NRBC Flagged by Analyzer 0 % (0-5); Neutrophil # 4.32 X10^3/uL (2.7-7.7); Neutrophil % 65.8 % (47-70); Platelet Count 209 K/mm3 (150-450); RBC Distribution Width CV 12.7 % (11.6-14.6); RBC Distribution Width SD 41.3 fl (35.1-43.9); Red Blood Count 4.61 M/mm3 (4.2-5.4); White Blood Count 6.6 K/mm3 (4.4-11.0)
[2022-07-01 13:00] LABS: Progesterone Level 15.05 ng/mL (See Comment); Vitamin B12 376 pg/mL (211-911); Vitamin D,25 Hydroxy 21.8 ng/mL
[2022-07-01 13:33] LABS: Estradiol 92.8 pg/mL; Ferritin 37 ng/mL (8-252); Follicle Stimulating Hormone 3.9 mIU/mL; Free T3 2.7 pg/mL (2.18-3.98); Iron 82 ug/dL (50-170); Luteinizing Hormone 4.2 mIU/mL; T4 Free Direct 1.13 ng/dL (0.76-1.46); Thyroid Stim Hormone (TSH) 1.11 uIU/mL (0.358-3.74)
[2022-07-09 16:09] LABS: DHEA Sulfate 45.9 ug/dL (41.2-243.7)
[2022-07-10 19:29] LABS: Thyroglobulin Antibody < 1.0 IU/mL (0.0-0.9); Thyroid Peroxidase AB 9 IU/mL (0-34)
== END | disposition home or self-care (01) ==
PROVIDERS: PCP Family Medicine; Visit Provider Nurse Practitioner Family
DX: F41.9 Anxiety disorder, unspecified (principal); E55.9 Vitamin D deficiency, unspecified; F32.A Depression, unspecified; R53.83 Other fatigue; G47.00 Insomnia, unspecified; R63.5 Abnormal weight gain; L65.9 Nonscarring hair loss, unspecified; Z78.0 Asymptomatic menopausal state
CPT/HCPCS: 81291; 82306; 82607; 82627; 82670; 82728; 83001; 83002; 83540; 84144; 84439; 84443; 84481; 85025; 86376; 86800; 82626

== ENCOUNTER → 2022-07-16 | Outpatient (CLI) | payer BC, SELFPAY ==
[2022-07-16 13:26] LABS: NATERA MAILED SPECIMEN
== END | disposition home or self-care (01) ==
LOC: LAB 12:24
PROVIDERS: PCP Family Medicine; Referring Provider Obstetrics & Gynecology; Visit Provider Obstetrics & Gynecology
DX: Z13.79 Encounter for other screening for genetic and chromosomal anomalies (principal); Z80.3 Family history of malignant neoplasm of breast; Z80.49 Family history of malignant neoplasm of other genital organs; Z80.0 Family history of malignant neoplasm of digestive organs
CPT/HCPCS: 36415

== ENCOUNTER → 2022-07-29 | Outpatient (CLI) | payer BC, SELFPAY ==
--- NOTE | 2022-07-29 09:35 | US_ITS ---
STUDY: ULTRASOUND BREAST - RIGHT REASON FOR EXAM: Female, 47 years old. Bilateral axillary fullness and pain. TECHNIQUE: Axial and longitudinal images of the RIGHT breast were performed with a high resolution ultrasound transducer. # OF IMAGES: 82 COMPARISON: Comparison is made with prior mammogram dated 07/29/2022. FINDINGS: RIGHT Breast: Breast tissue is seen in the axillary tail of the right breast. There is a 1.1 cm x 1.2 cm x 0.6 cm benign-appearing lymph node in the right axilla. IMPRESSION: 1.1 cm x 1.2 cm x 0.6 cm benign-appearing lymph node in the right axilla. ASSESSMENT CATEGORY: BIRADS Category 2: Benign. A letter regarding these results will be sent to the patient by the facility within 30 days. Electronically Signed: Santhosh Morse MD at 15:02 EDT , STUDY: ULTRASOUND BREAST - LEFT REASON FOR EXAM: Female, 47 years old. Axillary fullness and pain. TECHNIQUE: Axial and longitudinal images of the LEFT breast were performed with a high resolution ultrasound transducer. # OF IMAGES: 82 COMPARISON: Comparison is made with prior mammogram done earlier today. FINDINGS: LEFT Breast: Breast tissue is seen in the left axilla. There is also evidence of a 3.7 cm x 2.4 cm x 1.2 cm enlarged lymph node in the left axilla. A biopsy may be indicated. US/Breast Limited Unilateral IMPRESSION: 3.7 cm by 2.4 cm x 1.2 cm enlarged lymph node in the left axilla. A biopsy may be considered. ASSESSMENT CATEGORY: BIRADS Category 4: Suspicious - Biopsy Should Be Considered. A letter regarding these results will be sent to the patient by the facility within 30 days. Electronically Signed: Santhosh Morse MD at 15:04 EDT ,
--- NOTE | 2022-07-29 09:36 | BI_ITS ---
MAMMOGRAPHY - BILATERAL DIAGNOSTIC REASON FOR EXAM: Female, 47 years old. Painful bilateral axillary regions following Covid vaccine. PERTINENT HISTORY: Aunts with breast cancer. TECHNIQUE: Digital bilateral breast amanda (3D mammographic acquisition) in the CC and MLO projections. 2-D mediolateral oblique (MLO) and craniocaudad (CC) views of both breasts were obtained. CAD: Full Field Digital Mammography with Computer Added Detection was performed. COMPARISON: Comparison is made with prior study dated 08/13/2021 and 02/12/2020. FINDINGS: Breast Composition: The breasts are heterogeneously dense, which may obscure small masses. There are no dominant masses or suspicious calcifications. Stable appearance of the fat-containing bilateral axillary lymph nodes. No other significant abnormalities are identified. There has been no significant change since the prior study. BI/DIAG MAMM W/CAD, BILAT IMPRESSION: Stable bilateral diagnostic mammogram. With the patient''s history of bilateral axillary soreness, correlation with ultrasound is recommended. ASSESSMENT CATEGORY: BIRADS Category 0: Incomplete. Need additional imaging evaluation. A letter regarding these results will be sent to the patient by the facility within 30 days. Approximately 10% of breast cancers are not detected by mammography. A normal mammogram should not delay biopsy of a clinically suspicious abnormality. Electronically Signed: Santhosh Morse MD at 10:45 EDT ,
== END | disposition home or self-care (01) ==
LOC: OPBI 09:30
PROVIDERS: PCP Family Medicine; Visit Provider Obstetrics & Gynecology
DX: M79.621 Pain in right upper arm (principal); M79.622 Pain in left upper arm
CPT/HCPCS: 76642; 77062; 77066; G0279

== ENCOUNTER 2022-08-15 18:49 | Emergency (ER) | payer BC, SELFPAY ==
[2022-08-15 18:49] VITALS: BP 139/82; PULSE 87; RESP 14; TEMP 36.1; O2SAT 99; BMI 43.8
--- NOTE | 2022-08-15 19:38 | CT_ITS ---
We are attempting to reach an attending provider to discuss findings. An addendum with communication details will be sent when the communication is complete. EXAM: CT ABDOMEN AND PELVIS WITHOUT INTRAVENOUS CONTRAST CLINICAL INDICATION: Kidney Stone TECHNIQUE: Helically acquired images were obtained of the abdomen and pelvis without intravenous contrast. This CT exam was performed using one or more of the following dose reduction techniques: automated exposure control, adjustment of the mA and/or kV according to patient size, and/or use of iterative reconstruction technique. This report was created using [employer] report [employer] technology. RADIATION DOSE: CTDIvol = 24.17 mGy, DLP = 1280.39 mGy-cm. COMPARISON: November 10, 2020,, November 06, 2019. FINDINGS: LOWER THORAX: Small focus of suspected infiltrate in the right middle lobe on the most superior image, not fully included. No cardiomegaly. No significant pericardial effusion. ABDOMEN: LIVER: Hepatomegaly and fatty liver appear improved, the right lobe of the liver is 19 cm craniocaudal, it was 20 cm, and the liver is less hypodense. GALLBLADDER AND BILE DUCTS: Cholecystectomy. No intra- or extrahepatic biliary ductal dilation. PANCREAS: Unremarkable. No focal cystic mass. SPLEEN: Mild splenomegaly, 14.6 cm craniocaudal, similar. ADRENALS: Unremarkable. No nodules. KIDNEYS AND URETERS: No hydronephrosis or urinary tract stone. Normal renal size and position. STOMACH AND BOWEL: Moderate fluid in the stomach. No suspicious small bowel dilatation. Moderate stool and gas in the proximal half of the colon. No focal inflammatory change. PELVIS: APPENDIX: Small appendix is seen on sagittal images. BLADDER: Unremarkable. REPRODUCTIVE: Larger, more complex and increasingly multi-septated appearance of previously simple-appearing left adnexal cystic structure. It is now 6.8 cm x 5.8 cm x 6.3 cm with at least 2 or more suspected faint internal septations. It was 5 cm x 4.1 cm x 4.5 cm November 10, 2020 and 4.6 cm maximum diameter on November 15, 2019 and appeared more simple. Partial hysterectomy. ABDOMEN and PELVIS: INTRAPERITONEAL SPACE: Unremarkable. No ascites or other fluid collection. No free air. BONES/JOINTS: Unremarkable. No suspicious lytic or blastic abnormality. SOFT TISSUES: Unremarkable. No discrete abdominal or pelvic wall hernia. VASCULATURE: Unremarkable. Abdominal aorta is non-dilated. LYMPH NODES: Small gastrohepatic lymph nodes again noted. CT/Abdomen/Pelvis without Cont IMPRESSION: 1. Larger and significantly increased complex appearance of a left cystic adnexal mass, suspicious for ovarian neoplasm. Pelvic ultrasound and consideration for surgical correlation is recommended. 2. No urinary tract stone. Previously seen right intrarenal stone is no longer apparent. 3. Partially included suspected right middle lobe pneumonia or scarring. 4. Hepatosplenomegaly and fatty liver. Improved appearance of the liver. Electronically Signed: Kimi Zaragoza MD at 20:42 EDT ,
[2022-08-15] MEDS: Ondansetron 4 MG/2 ML Vial IV (19:49)
[2022-08-15] MEDS: Ketorolac 30 MG/ML Syringe IV (19:54)
[2022-08-15 19:55] LABS: Absolute Lymphocyte Count 1.99 X10^3/uL (0.83-4.51); Absolute Neutrophil Count 5.1 X10^3/uL (2.0-7.7); Bacteria 0 SEEN /hpf (None Seen); Basophil# 0.04 X10^3/uL; Basophil% 0.5 % (0-1); Eosinophil# 0.15 X10^3/uL; Eosinophils% 1.9 % (0-5); Hematocrit 38.1 % (37-47); Hemoglobin 12.8 g/dL (12.0-15.0); Lymphocyte # 1.99 X10^3/ul (0.83-4.51); Lymphocyte % 25.8 % (19-41); Mean Corp Hgb Conc 33.6 g/dL (32-36); Mean Corpuscular Hgb 30.3 pg (27.0-32.0); Mean Corpuscular Volume 90.3 fL (81-99); Mean Platelet Vol. 10.2 fl (6.2-12.0); Monocyte# 0.42 X10^3/uL; Monocyte% 5.4 % (0-10); Mucous, Urine 0 SEEN /hpf (<or=2+); NRBC Flagged by Analyzer 0 % (0-5); Neutrophil # 5.09 X10^3/uL (2.7-7.7); Platelet Count 217 K/mm3 (150-450); RBC Distribution Width CV 13.1 % (11.6-14.6); RBC Distribution Width SD 42.3 fl (35.1-43.9); Red Blood Cells-Urine 0 SEEN /hpf (0-5); Red Blood Count 4.22 M/mm3 (4.2-5.4); Squamous Epithelial Cells - UA 0 SEEN /hpf (5-10); White Blood Cells 0 SEEN /hpf (0-5); White Blood Count 7.7 K/mm3 (4.4-11.0)
[2022-08-15 19:56] LABS: Color, Urine Straw (Yellow); Glucose, Dipstick Normal (Normal); Ketone-Dipstick Negative (Negative); Leukocyte Esterase-Dipstick Negative /ul (Negative); Nitrite-Dipstick Negative (Negative); Occult Blood-Urine Negative /ul (Negative); Protein-Dipstick Negative (Negative); Specific Gravity, Urine 1.015 (1.002-1.030); Urine Bilirubin Dipstick Negative (Negative); Urine Clarity Sl. Cloudy (Clear); Urine Urobilinogen Normal (Normal)
--- NOTE | 2022-08-15 20:03 | EX.ED.DYSGE1 ---
HPI History of Present Illness Chief Complaint: Flank Pain Informant: patient Narrative Narrative: This is a very pleasant 47-year-old female presenting to the emergency department with left flank and abdominal pain. Patient states that symptoms began this morning and has been waxing and waning. She notes pain with walking and with movement but not necessarily with touch. She notes subjective fever. She has a history of diabetes and hypertension but has also had ovarian cyst as well as kidney stones. She notes nausea but no vomiting. She notes urinary urgency but not dysuria. No change in bowel habits. [facility] Medical History Arthritis Asthma Breathing-related sleep disorder COPD (chronic obstructive pulmonary disease) Essential (primary) hypertension Former smoker Genetic testing of female GERD (gastroesophageal reflux disease) History of deep venous thrombosis Hx of renal calculi Migraines Myopericarditis Nephrolithiasis Nicotine dependence in remission Non-STEMI (non-ST elevated myocardial infarction) (07/2008) Obesity Obstructive sleep apnea cardiomyopathy Pulmonary embolus (07/2008) Pulmonary nodule Stomach ulcer Type 2 diabetes mellitus Vitamin D deficiency Home Medications hydrochlorothiazide 25 mg tablet 25 mg PO DAILY BP 12/30/15 [History Last Taken Unknown] blood sugar diagnostic #100 ea 05/29/21 [Rx Last Taken Unknown] blood-glucose meter #1 ea 05/29/21 [Rx Last Taken Unknown] lancets 32 gauge #100 ea 05/29/21 [Rx Last Taken Unknown] multivitamin 1 tab PO DAILY 05/29/21 [History Last Taken Unknown] sumatriptan succinate 25 mg tablet (Imitrex) See Rx Instructions PO .COMPLEX 05/29/21 [History Last Taken Unknown] dulaglutide 1.5 mg/0.5 mL subcutaneous pen injector (Trulicity) 1.5 mg subcut QWEEK 07/10/22 [History Last Taken Unknown] pantoprazole 40 mg tablet,delayed release 40 mg PO DAILY 07/10/22 [History Last Taken Unknown] bupropion HCl 300 mg 24 hr tablet, extended release 300 mg PO DAILY 08/15/22 [History Last Taken Unknown] hydrocodone-acetaminophen 5-325mg 5mg-325mg 1 tab PO Q6H PRN PRN Pain 3 days #12 TABLETS 08/15/22 [Rx Last Taken Unknown] Allergy/AdvReac Type Severity Reaction Status Date / Time Penicillins Allergy Rash Verified 08/15/22 19:04 Family History Mother Diabetes Hypertension Cancer Uterine cancer Pancreatitis Father Diabetes Heart disease Hypertension CVA (cerebral vascular accident) Daughter Hearing loss Grandmother CVA (cerebral vascular accident) Other Gout Surgical History H/O: hysterectomy History of left heart catheterization (07/2008) History of shoulder surgery Hx of cholecystectomy Hx of tympanostomy tubes Social History Smoking Status: Former smoker quit date: 10/18/12 Tobacco: How many years used: 20 second hand exposure: No alcohol intake: current alcohol intake frequency: 0-2 drinks per day details: social substance use type: does not use caffeine: Yes what type of physical activity do you participate in: none seatbelt use: always do you feel safe at home: Yes additional social history: Patient works at the [employer] Constitutional Constitutional ED: Denies chills or weight loss Eyes Eyes: Denies change in vision or diplopia ENT ENT ED: Denies ear pain, rhinorrhea or sore throat Cardiovascular Cardiovascular: Denies chest pain, orthopnea, palpitations or racing heartbeat Respiratory/Chest Respiratory/Chest: Denies cough, dyspnea or orthopnea Gastrointestinal Gastrointestinal: Reports abdominal pain, nausea and other; Denies diarrhea or vomiting Genitourinary Genitourinary ED: Denies dysuria, hematuria or urinary frequency Musculoskeletal Musculoskeletal: Reports back pain and other Details: Left flank pain ; Denies arthralgias or myalgias Integumentary Denies abscess or rash Neurologic Neurologic: Denies headache(s) or weakness Psychiatric Psychiatric: Denies anxiety, depression, suicidal ideation or suicidal thoughts Endocrine Endocrinology: Denies polydipsia, polyphagia or polyuria Allergic/Immunologic Allergic/Immunologic ED: Denies mouth swelling, tongue swelling or urticaria EXAM Physical Exam Const Vital Signs: 08/15/22 18:49 08/15/22 21:06 08/15/22 23:23 Temperature 96.9 F L Temperature Source Temporal Pulse Rate 87 80 76 Respiratory Rate 14 18 18 Blood Pressure 139/82 H 124/54 H 112/90 H Blood Pressure Mean 101 77 97 Pulse Ox 99 98 97 Oxygen Delivery Method Room Air Room Air Room Air Positive well nourished, well developed and obese General Appearance ED: well developed Nutritional Appearance: obese HEENT Reports normocephalic, head/scalp atraumatic and moist mucous membranes Eyes PERRL and EOMs intact bilaterally Neck no lymphadenopathy, supple and no JVD Resp normal respiratory effort and clear to auscultation bilaterally Cardio regular rate, regular rhythm and no murmurs GI normal to inspection, nondistended, normoactive bowel sounds and non-tender Palpation: soft Back/Spine normal ROM General Back: CVA tenderness left Extremity normal to inspection General Extremety ED: Negative for edema General Extremity: Negative for edema Neuro oriented x3 and CN's II-XII intact bilaterally Sensorium / Orientation: alert Motor Exam: strength 5/5 throughout Psych mental status grossly normal Mood & Affect: Negative for depressed or tearful Skin no rashes or lesions noted and no wounds MDM MDM MDM Narrative Medical decision making narrative: Basic blood work obtained and was negative. CT of the abdomen pelvis does not demonstrate any ureterolithiasis. Urinalysis is negative. On the CT there is noted to be enlargement of the left ovary greater than 6 cm. She has had a cyst consistently on the ovary for the past several years on CT imaging. However today it is significantly larger and septated. Therefore pelvic ultrasound was ordered. This was read by radiology and reviewed by myself. I discussed the case with Dr. Juan. Patient will follow-up early next week to discuss options regarding the cyst/mass. I will write for her to have some pain medication if need be Lab Data Attestation: I reviewed the patient's lab results. Labs: Laboratory Results - last 24 hr 08/15/22 08/15/22 08/15/22 19:48 19:48 19:48 WBC 7.7 RBC 4.22 Hgb 12.8 Hct 38.1 MCV 90.3 MCH 30.3 MCHC 33.6 RDW Std Deviation 42.3 RDW Coeff of Paz 13.1 Plt Count 217 MPV 10.2 Immature Gran % (Auto) 0.400 Neut % (Auto) 66.0 Lymph % (Auto) 25.8 [place] % (Auto) 5.4 Eos % (Auto) 1.9 Baso % (Auto) 0.5 Absolute Neuts (auto) 5.1 Absolute Lymphs (auto) 1.99 Nucleated RBC % 0 Sodium 140 Potassium 3.7 Chloride 107 Carbon Dioxide 28.0 Anion Gap 5 BUN 13 Creatinine 0.90 Estim Creat Clear Calc 71.03 Est GFR (MDRD) Af Amer 87 Est GFR (MDRD) Non-Af 72 BUN/Creatinine Ratio 14.5 Glucose 114 H Calcium 9.0 Serum , Qual NEGATIVE Urine Color Urine Clarity Urine pH Ur Specific [place] Urine Protein Urine Glucose (UA) Urine Ketones Urine Occult Blood Urine Nitrite Urine Bilirubin Urine Urobilinogen Ur Leukocyte Esterase Urine RBC Urine WBC Ur Squamous Epith Cells Urine Bacteria Urine Mucus 08/15/22 19:48 WBC RBC Hgb Hct MCV MCH MCHC RDW Std Deviation RDW Coeff of Paz Plt Count MPV Immature Gran % (Auto) Neut % (Auto) Lymph % (Auto) [place] % (Auto) Eos % (Auto) Baso % (Auto) Absolute Neuts (auto) Absolute Lymphs (auto) Nucleated RBC % Sodium Potassium Chloride Carbon Dioxide Anion Gap BUN Creatinine Estim Creat Clear Calc Est GFR (MDRD) Af Amer Est GFR (MDRD) Non-Af BUN/Creatinine Ratio Glucose Calcium Serum , Qual Urine Color Straw Urine Clarity Sl. Cloudy Urine pH 7.0 Ur Specific [place] 1.015 Urine Protein Negative Urine Glucose (UA) Normal Urine Ketones Negative Urine Occult Blood Negative Urine Nitrite Negative Urine Bilirubin Negative Urine Urobilinogen Normal Ur Leukocyte Esterase Negative Urine RBC 0 SEEN Urine WBC 0 SEEN Ur Squamous Epith Cells 0 SEEN Urine Bacteria 0 SEEN Urine Mucus 0 SEEN Radiography Diagnostic Testing: Clinical Impression(s) from Imaging Studies Abdomen/Pelvis CT 08/15/22 19:38 IMPRESSION: 1. Larger and significantly increased complex appearance of a left cystic adnexal mass, suspicious for ovarian neoplasm. Pelvic ultrasound and consideration for surgical correlation is recommended. 2. No urinary tract stone. Previously seen right intrarenal stone is no longer apparent. 3. Partially included suspected right middle lobe pneumonia or scarring. 4. Hepatosplenomegaly and fatty liver. Improved appearance of the liver. Electronically Signed: Kimi Zaragoza MD at 20:42 EDT , ADDENDUM: 08/15/222055 IMPRESSION: 1. Larger and significantly increased complex appearance of a left cystic adnexal mass, suspicious for ovarian neoplasm. Pelvic ultrasound and consideration for surgical correlation is recommended. 2. No urinary tract stone. Previously seen right intrarenal stone is no longer apparent. 3. Partially included suspected right middle lobe pneumonia or scarring. 4. Hepatosplenomegaly and fatty liver. Improved appearance of the liver. N.B. : The above Results were Read Back by Kimi Zaragoza MD to Dr. Yvon MD, and understanding confirmed on 08/15/2022 20:49:56 (ET). Electronically Signed: Kimi Zaragoza MD at 20:42 EDT , Transvaginal US 08/15/22 20:54 IMPRESSION: Complex multi septated cystic mass with at least one mildly thickened vascular septation and at least one internally complex cystic component replacing most of the left ovary. Consideration for surgical correlation is recommended. Suspicious for neoplasm. Increased size and complexity compared to prior imaging. Electronically Signed: Kimi Zaragoza MD at 0:09 EDT , Discharge Plan Triage Chief Complaint: Flank Pain ED Provider: Aravind Sanz Dx/Rx/DC Orders Clinical Impression: Abdominal pain, Mass of left ovary Prescriptions: New hydrocodone-acetaminophen [hydrocodone-acetaminophen] 5-325 mg tablet 1 tab PO Q6H PRN PRN (Reason: Pain) 3 Days Qty: 12 0RF No Action multivitamin Tablet 1 tab PO DAILY sumatriptan succinate [Imitrex] 25 mg tablet See Rx Instructions PO .COMPLEX Rx Instructions: take 1 tab at onset of headache; if no relief may repeat 1 tab after at least 2 hrs; max = 4 tabs/24 hr PO (DME) blood sugar diagnostic Strip See Rx Instructions .ROUTE .MEDSUPPLY Qty: 100 1RF Rx Instructions: As directed (DME) blood-glucose meter Kit See Rx Instructions .ROUTE .MEDSUPPLY Qty: 1 0RF Rx Instructions: As directed (DME) lancets 32 gauge misc See Rx Instructions .ROUTE .MEDSUPPLY Qty: 100 1RF Rx Instructions: As directed pantoprazole 40 mg tablet,delayed release (DR/EC) 40 mg PO DAILY Trulicity 1.5 mg/0.5 mL pen injector 1.5 mg subcut QWEEK hydrochlorothiazide 25 MG tablet 25 mg PO DAILY Label Comments: blood pressure bupropion HCl 300 mg Tablet Extended Release 24 Hr 300 mg PO DAILY Primary Care Provider: Selena Langston Referrals: Angelica Juan MD [Med Staff - Active Staff] - As soon as possible Selena Langston PAAdiliaC [Primary Care Provider] - Disposition Disposition: Home, Self Care
[2022-08-15 20:08] LABS: Anion Gap 5 (5-15); BUN 13 mg/dL (7-18); BUN/Creat Ratio 14.5 RATIO (10-20); Chloride 107 mmol/L (98-107); EST Glomerular Filtration Rate 72 mL/min (>60); Est Glom Filt Rate - Afr Amer 87 mL/min (>60); Estimated Creatinine Clearance 71.03 ml/min; Glucose 114 mg/dL (74-106); Potassium 3.7 mmol/L (3.5-5.1); Sodium Level 140 mmol/L (136-145)
[2022-08-15 20:09] LABS: Internal QC Validated? YES +Cl - CLEAR BKGD; Pregnancy, Serum, hCG Quali. NEGATIVE Negative
--- NOTE | 2022-08-15 20:54 | US_ITS ---
ACR Level 3 findings have been noted. An addendum which confirms receipt of the report will follow. Exam: US Transvaginal Non-OB Comparison: History: ovarian mass -LEFT SEEN ON TODAY''S CT -- LLQ PAIN -- HX OF HYSTERECTOMY FINDINGS: LEFT OVARY: Overall measured size 6.7 cm x 7.7 cm x 6.2 cm overall size of the left ovary. No normal parenchymal tissue is seen. Complex cystic lesion measuring at least 7 cm x 5.6 cm x 5.4 cm with some documented blood flow in the rim of ovarian tissue. There is at least one thick and mildly vascular septation measuring 4 mm and multiple thinner internal septations with mild vascularity. There is at least one internal complex hypoechoic cystic component with low to intermediate level echoes measuring 2.5 cm x 2.1 cm x 2.6 cm. There is confluence of multiple thickened septa adjacent to the complex cystic component and question of a small nodular component extending into the complex cystic component on image #39. Right ovary: 4.2 cm x 3.1 cm x 4.1 cm with documented blood flow. US/Transvaginal Non- IMPRESSION: Complex multi septated cystic mass with at least one mildly thickened vascular septation and at least one internally complex cystic component replacing most of the left ovary. Consideration for surgical correlation is recommended. Suspicious for neoplasm. Increased size and complexity compared to prior imaging. Electronically Signed: Kimi Zaragoza MD at 0:09 EDT ,
[2022-08-15 21:06] VITALS: BP 124/54; PULSE 80; RESP 18; O2SAT 98
[2022-08-15] MEDS: HYDROcodone Bitartrate/Apap 5/325 Tablet PO (22:23)
[2022-08-15 23:23] VITALS: BP 112/90; PULSE 76; RESP 18; O2SAT 97
== END 2022-08-16 00:31 | disposition home or self-care (01) ==
PROVIDERS: Emergency Provider Emergency Medicine; PCP Family Medicine; Visit Provider Emergency Medicine
DX: N83.8 Other noninflammatory disorders of ovary, fallopian tube and broad ligament (principal); J44.9 Chronic obstructive pulmonary disease, unspecified; E11.9 Type 2 diabetes mellitus without complications; R11.0 Nausea; R39.15 Urgency of urination; I10 Essential (primary) hypertension; Z87.891 Personal history of nicotine dependence; I25.2 Old myocardial infarction
CPT/HCPCS: 74176; 76830; 80048; 81001; 84703; 85025; 96374; 96375; 99284; A4216; J2405

== ENCOUNTER → 2022-08-17 | Outpatient (CLI) | payer BC, SELFPAY ==
[2022-08-18 18:03] LABS: Cancer Antigen 125 23.4 U/mL (0.0-38.1); Carcinoembryonic Antigen 1.3 ng/mL (0.0-4.7)
== END | disposition home or self-care (01) ==
LOC: LAB 11:43
PROVIDERS: PCP Family Medicine; Visit Provider Obstetrics & Gynecology
DX: N83.8 Other noninflammatory disorders of ovary, fallopian tube and broad ligament (principal); R10.9 Unspecified abdominal pain
CPT/HCPCS: 36415; 82378; 86304

== ENCOUNTER 2022-08-21 10:41 | Day surgery (SDC) | payer BC, SELFPAY ==
[2022-08-18 11:56] LABS: Absolute Lymphocyte Count 1.53 X10^3/uL (0.83-4.51); Absolute Neutrophil Count 5.6 X10^3/uL (2.0-7.7); Basophil# 0.05 X10^3/uL; Basophil% 0.7 % (0-1); Eosinophil# 0.12 X10^3/uL; Eosinophils% 1.6 % (0-5); Hematocrit 41.2 % (37-47); Lymphocyte # 1.53 X10^3/ul (0.83-4.51); Lymphocyte % 20.1 % (19-41); Mean Corpuscular Volume 88.4 fL (81-99); Mean Platelet Vol. 10.5 fl (6.2-12.0); Monocyte# 0.34 X10^3/uL; Monocyte% 4.5 % (0-10); NRBC Flagged by Analyzer 0 % (0-5); Neutrophil # 5.55 X10^3/uL (2.7-7.7); Neutrophil % 72.7 % (47-70); Platelet Count 223 K/mm3 (150-450); RBC Distribution Width SD 41.8 fl (35.1-43.9); Red Blood Count 4.66 M/mm3 (4.2-5.4); White Blood Count 7.6 K/mm3 (4.4-11.0)
[2022-08-18 12:12] LABS: ALB/GLOB Ratio 0.8 RATIO (0.9-2.4); AST(SGOT) 14 U/L (15-37); Alanine Aminotransfer ALT/SGPT 26 U/L (13-56); Albumin, Serum 3.3 g/dL (3.2-5.0); Alkaline Phosphatase 60 U/L (45-117); Anion Gap 5 (5-15); BUN 12 mg/dL (7-18); BUN/Creat Ratio 11.5 RATIO (10-20); Calcium,Total 8.9 mg/dL (8.5-10.1); Chloride 104 mmol/L (98-107); Creatinine, Serum 1.04 mg/dL (0.55-1.02); EST Glomerular Filtration Rate 61 mL/min (>60); Est Glom Filt Rate - Afr Amer 74 mL/min (>60); Globulin 3.9 g/dL (2.2-4.2); Glucose 117 mg/dL (74-106); Potassium 3.9 mmol/L (3.5-5.1); Protein, Total 7.2 g/dL (6.4-8.2); Sodium Level 137 mmol/L (136-145)
[2022-08-19 10:16] LABS: Hemoglobin A1c 5.7 % (3.8-5.6)
--- NOTE | 2022-08-20 18:31 | HP.PCM_ITS ---
History and Physical Date of Admission: 08/21/22 Intake Vital Signs ? 08/15/2218:49 08/17/2212:01 08/17/2212:06 Height 5 ft 5 in 5 ft 5 in 5 ft 5 in Weight: 263 lb 3.711 oz 259 lb ? BMI 43.8 43.1 ? BP 139/82 H 112/74 ? Respiration 14 ? ? Pulse 87 ? ? Temp 96.9 F L ? ? Pulse Oximetry (%) 99 ? ? Intake Visit Reasons:?ER follow up surgical consult Chief Complaint: ER follow up surgical consult Design Editor Required: No Is patient in pain?: Yes Allergies Penicillins Allergy (Verified 08/15/22 19:04) Rash Medications hydrochlorothiazide 25 mg tablet 25 mg PO DAILY BP 12/30/15 [History Confirmed 08/17/22] blood sugar diagnostic #100 ea 05/29/21 [Rx Confirmed 07/10/22] blood-glucose meter #1 ea 05/29/21 [Rx Confirmed 07/10/22] lancets 32 gauge #100 ea 05/29/21 [Rx Confirmed 07/10/22] multivitamin 1 tab PO DAILY 05/29/21 [History Confirmed 08/17/22] sumatriptan succinate 25 mg tablet (Imitrex) See Rx Instructions PO .COMPLEX 05/29/21 [History Confirmed 08/17/22] dulaglutide 1.5 mg/0.5 mL subcutaneous pen injector (Trulicity) 1.5 mg subcut QWEEK 07/10/22 [History Confirmed 08/17/22] pantoprazole 40 mg tablet,delayed release 40 mg PO DAILY 07/10/22 [History Confirmed 08/17/22] bupropion HCl 300 mg 24 hr tablet, extended release 300 mg PO DAILY 08/15/22 [History Confirmed 08/15/22] hydrocodone-acetaminophen 5-325mg 5mg-325mg 1 tab PO Q6H PRN PRN Pain 3 days #12 TABLETS 08/15/22 [Rx Confirmed 08/17/22] bupropion HCl 300 mg 24 hr tablet, extended release (Wellbutrin XL) 300 mg PO QAM 08/17/22 [History Confirmed 08/17/22] Is last menstrual period known: No Post menopausal: No Patient : No : No PFSH Medical History?(Updated 08/17/22 @ 23:[address] Angelica Juan MD) Arthritis Asthma Breathing-related sleep disorder COPD (chronic obstructive pulmonary disease) Essential (primary) hypertension Former smoker Genetic testing of female GERD (gastroesophageal reflux disease) History of deep venous thrombosis History of kidney stones Hx of renal calculi Migraines Myopericarditis Nephrolithiasis Nicotine dependence in remission Non-STEMI (non-ST elevated myocardial infarction) (07/2008) Obesity Obstructive sleep apnea cardiomyopathy Pulmonary embolus (07/2008) Pulmonary nodule Stomach ulcer Vitamin D deficiency Surgical History? H/O: hysterectomy History of left heart catheterization (07/2008) History of shoulder surgery Hx of cholecystectomy Hx of tympanostomy tubes Family History? Mother Diabetes Hypertension Cancer Uterine cancer PancreatitisFather Diabetes Heart disease Hypertension CVA (cerebral vascular accident)Daughter Hearing lossGrandmother CVA (cerebral vascular accident)Other Gout Social History? Smoking Status:? Former smoker quit date: 10/18/12 Tobacco: How many years used:? 20 second hand exposure:? No alcohol intake:? current alcohol intake frequency: 0-2 drinks per day details:? social substance use type:? does not use caffeine:? Yes what type of physical activity do you participate in:? none seatbelt use:? always do you feel safe at home:? Yes additional social history:? Patient works at the [employer] ER follow up surgical consult Details: CHASTITY NUNEZ is a 47 year old who presents for pelvic pain worsening over the last 6 months. she had a complex 3 cm cyst in oct 2019 and hadn't done the f ollow up imaging recommended until she started having recurrent pain and now has nausea, pain enough to limit activities and she went to the ER the other night for evaluation and had a ct. cea and ca125 are pending. she has a history of hysterectomy and PE and MD and cardiomyopathy.? she hasn't had a stress test recently.? she denies any cardiac symptoms at present.? she denies any diarrhea.? she denies any fever. she is taking the pain meds prescribed by the ER physician. History ? ? ? 6 ? Elective abortions ? Hx Para ? ? ? 3 ? Spontaneous abortions ? Hx # Term Pregnancies ? Ectopic pregnancies ? Hx # Pregnancies ? Multiple births ? # of living children ? Past Pregnancies Del. Date Name GA/Weeks Outcome Route Bth Weight Infant Gen Labor Lgth Anesthesia Del Locatn Provider FOB Unknown 1995 Nakita ? Unknown 2003 Francesca ? Unknown 2007 Marce ? ROS Const Constitutional: Denies fatigue, weight gain or weight loss ENT ENT: Reports system reviewed and no additional complaints, except as documented Cardio Card: Denies chest pain Resp Resp: Denies cough or dyspnea GI GI: Reports as per HPI, abdominal pain and nausea; Denies constipation or vomiting : Denies nipple discharge, urinary frequency, urinary incontinence, urinary hesitancy, urinary urgency, vaginal discharge, vaginal dryness, vaginal odor or vaginal pruritus Musc Musc: Reports back pain; Denies arthralgias or muscle weakness Skin Skin/Breast: Denies alopecia, change in hair, dry skin, breast mass, breast pain, breast skin changes or nipple discharge Neuro Neuro: Reports system reviewed and no additional complaints, except as documented Psych Psych: Reports system reviewed and no additional complaints, except as documented Endo Endo: Denies cold intolerance, excessive sweating, heat intolerance or polydipsia Deric/Lymph Hematologic/Lymphatic: Denies easy bleeding, Denies easy bruising and Denies lymphadenopathy Exam Const General: cooperative, healthy appearing, comfortable, no acute distress and well developed Orientation: alert [facility] Head: normal to inspection and normocephalic Ears: hearing grossly normal bilaterally and external ears normal Nose: external nose normal and nares normal Face and sinus: normal facial exam Neck Neck: normal visual inspection and no lymphadenopathy Thyroid: thyroid normal Chest Chest palpation & inspection: normal inspection of the chest Resp Effort & Inspection: normal respiratory effort Auscultation: clear to auscultation bilaterally Cardio Rate: regular rate Rhythm: regular rhythm Heart Sounds: S1 normal and S2 normal GI Inspection: normal to inspection and non-distended Palpation: soft and no hepatosplenomegaly Musc Other: gross motor intact no deficits, full bilateral strength Skin General: no rashes or lesions noted Neuro General: patient alert, patient awake, moves all extremities and no focal motor deficits Motor: muscle tone normal throughout Extrem General: normal to inspection and no pedal edema Psych Appearance: grossly normal Mental Status: mental status grossly normal Affect: normal affect Speech and Movement: speech and movement normal Coding Level of Care Code Off vis,est,level 5 Diagnoses Mass of left ovary? N83.8 Preop cardiovascular exam? Z01.810 History of pulmonary embolism? Z86.711 Genetic testing of female? Z13.79 Diabetes? E11.9 Morbid obesity? E66.01 Essential (primary) hypertension? I10 Abdominal pain? R10.9 Assessment and Plan Assessment and Plan (1) Mass of left ovary: ?Status:?Acute ?Comment: complex, cea ca125 ordered. plan laparoscopic oophorectomy.? needs cardiac clearance prior. (2) Preop cardiovascular exam: ?Status:?Acute ?Comment: needs cardiac clearance (3) History of pulmonary embolism: ?Status:?Acute ?Comment: caprini risk score 10 recommend lovenox x 30 days postop, 40mg preop (4) Genetic testing of female: ?Status:?Acute ?Comment: Empower negative (5) Diabetes: ?Status:?Acute (6) Morbid obesity: ?Status:?Acute (7) Essential (primary) hypertension: ?Status:?Chronic (8) Abdominal pain: ?Status:?Acute ?Comment: sec to cyst Plan After discussing the patient's diagnosis and treatment plan options, patient wishes to proceed with surgical management.? I have discussed with the patient the risks, benefits, and alternatives of the procedure which include but are not limited to risks of anesthesia, bleeding, infection, possible damage to bowel, bladder, or surrounding vasculature which could lead to additional surgery to evaluate any complications.? Patient agrees to procedure and wishes to proceed.? ACOG/uptodate references given for additional information regarding procedure.?
[2022-08-21] VITALS (7 sets, daily range): BP systolic 123–133; BP diastolic 71–96; PULSE 84–94; RESP 16–20; TEMP 36.5–37.1; O2SAT 95–98; BMI 46.3
[2022-08-21] MEDS: Enoxaparin 40 MG/0.4 ML Syringe SC (11:42)
[2022-08-21] MEDS: Lactated Ringers 1,000 ML 125 ML IV (11:44)
[2022-08-21 11:50] LABS: Bedside Glucose 101 mg/dL (74-106)
--- NOTE | 2022-08-21 12:10 | OV_PTH ---
PATIENT: CHASTITY NUNEZ [place]: [facility] [place] U[place][id number] AGE/SX: 47/F ROOM: RE08/21/[address]: Dr. Alessia Bansal DO : 1975 BED: DIS: 08/21/2022 SPEC #: [id number] RECD: 08/21/22 15:15 STATUS: LEYLA OMALLEYZackery #: [id number] SHYAM: 08/21/22 12:[address]: Alessia Bansal DEPT: SURGICAL PATHOLOGY RECD BY: Lakia Williamson ENTERED: 08/24/22 08:40 SP TYPE: OVARY OTHR DR: Selena Langston PA-C Tissues: Left ovary Procedures: Surgery Specimen Level V HEADER OPERATION: Laparoscopic left oophorectomy, pelvic washings PRE-OP DIAGNOSIS: Left ovarian mass TISSUE SUBMITTED: Left ovary MICROSCOPIC DIAGNOSIS Left ovary, oophorectomy: Simple serous cystadenoma. Physiologic follicular and corpus luteal cysts. SJ:tory 08/25/2022 COMMENT Case has been reviewed in consultation with Dr. Grijalva who concurs with the above diagnosis. IDC:AM MICROSCOPIC DESCRIPTION Slides are reviewed. GROSS DESCRIPTION Received in fixative is one container labeled with the patient's name and designated left ovary. The specimen consists of multiple irregular fragments of ovary ranging in size from 1.5 to 6 cm. The external surface is smooth and glistening. The largest fragment is inked and serially sectioned to reveal multilocular cut surfaces. The cyst colon range from 0.2 to 0.7 cm in greatest dimension. Optical Dispenser sections are submitted in four cassettes as follows: 1-3 - manufacturers representative sections of largest fragment, 4??manufacturers representative sections of smaller fragments in container. / AM:tory 08/24/2022 TC:1 CPT: 83039
--- NOTE | 2022-08-21 12:10 | FLU_PTH ---
PATIENT: CHASTITY NUNEZ LOC: [facility] – [place] U#:[id number] AGE/SX: 47/F ROOM: RE08/21/[address]: Dr. Alessia Bansal DO : 1975 BED: DIS: 08/21/2022 SPEC #: [id number] RECD: 08/21/22 15:15 STATUS: LEYLA REZackery #: [id number] SHYAM: 08/21/22 12:[address]: Alessia Bansal DEPT: CYTOLOGY RECD BY: Lakia Williamson ENTERED: 08/24/22 08:32 SP TYPE: Fluid OTHR DR: Selena Langston PA-C Tissues: Pelvis, NOS Procedures: Special Stain Group II Surgery Specimen Level IV Cytospin Fluid HEADER OPERATION: Laparoscopic left oophorectomy, pelvic washings PRE-OP DIAGNOSIS: Left ovarian mass TISSUE SUBMITTED: Pelvic washings for cytology DIAGNOSIS CYTOLOGY Pelvic washings for cytology (cytospin and cell block): Negative for malignant cells. See comment. SCOTTY:tory 08/25/2022 COMMENT Please also correlate with corresponding surgical specimen [id number]. CYTOLOGY STUDY Slides are reviewed. CYTOLOGY GROSS Received is 10 ml of light pink clear fluid labeled with the patient's name and and designated per the requisition as pelvic washings. Submitted for cytology preparation including cell block. / tory 08/24/2022 TC:5 CPT: 30903, 97510
[2022-08-21] MEDS: Sugammadex Sodium 200 MG/2 ML VIAL IV (13:40)
--- NOTE | 2022-08-21 13:40 | DCINST_ITS ---
Discharge Instructions Diet Discharge Diet: No restrictions Activity Discharge Activity: Return to Normal Activity, May Not Drive (for two weeks or while taking narcotic pain medications.), May Shower and May Take a Tub Bath (in 7 days) May resume sexual activity in: 1 week Weight Bearing Status: Full weight bearing Dressing / Incision Call your doctor if you observe: Using more than 1 pad per hour, Shortness of breath, Chest pain and Uncontrolled pain Suture Line Care: Avoid Pulling/Pushing and Avoid Pinching/Bending Remove Dressing in: 1 week (if present) Cleanse incision/area with: Soap & Water and Keep Dressing Clean & Dry Follow Up Care Please Follow Up With: Alessia Bansal DO When: Call to make an appointment with your doctor for a follow up incision check in 1-2 weeks. Test Results: Test results from this visit will be discussed in further detail at your follow- up appointment, if applicable. Discharge Plan Admission Attending Provider: Alessia Bansal Primary Care Provider: Selena Langston Discharge Orders/Prescriptions Prescriptions: New enoxaparin [Lovenox] 40 mg/0.4 mL syringe 40 mg subcut DAILY 42 Days Qty: 16.8 0RF ibuprofen 600 mg tablet 600 mg PO Q6H PRN (Reason: pain) 7 Days Qty: 28 0RF Rx Instructions: one tab every 6 hrs as needed for mild to moderate pain oxycodone-acetaminophen [Percocet] 5-325 mg tablet 1 tab PO Q4H PRN (Reason: pain) 7 Days Qty: 20 0RF No Action sumatriptan succinate [Imitrex] 25 mg tablet See Rx Instructions PO .COMPLEX Rx Instructions: take 1 tab at onset of headache; if no relief may repeat 1 tab after at least 2 hrs; max = 4 tabs/24 hr PO (DME) blood sugar diagnostic Strip See Rx Instructions .ROUTE .MEDSUPPLY Qty: 100 1RF Rx Instructions: As directed (DME) blood-glucose meter Kit See Rx Instructions .ROUTE .MEDSUPPLY Qty: 1 0RF Rx Instructions: As directed (DME) lancets 32 gauge misc See Rx Instructions .ROUTE .MEDSUPPLY Qty: 100 1RF Rx Instructions: As directed pantoprazole 40 mg tablet,delayed release (DR/EC) 40 mg PO DAILY Trulicity 1.5 mg/0.5 mL pen injector 1.5 mg subcut TU bupropion HCl [Wellbutrin XL] 300 mg tablet extended release 24 hr 300 mg PO QAM hydrochlorothiazide 25 MG tablet 25 mg PO DAILY Label Comments: blood pressure hydrocodone-acetaminophen [hydrocodone-acetaminophen] 5-325 mg tablet 1 tab PO Q6H PRN PRN (Reason: Pain) 3 Days Qty: 12 0RF ferrous sulfate [iron] 325 mg (65 mg iron) Tablet 325 mg PO QODAY Vitamin [id number] Tablet 1 tab PO DAILY cholecalciferol (vitamin D3) [Vitamin D3] 125 mcg (5,000 unit) Tablet 125 mcg PO DAILY (DME) Dexcom G6 Sensor Device MISCELLANEOUS Referrals / Follow Up: Selena Langston PA-C [Primary Care Provider] - Disposition Disposition (needs filled in before D/C Order can be placed): Home, Self Care
--- NOTE | 2022-08-21 13:40 | PCM.OP.BLANK ---
Problems Associated Problem List Diagnoses (1) Morbid obesity: (2) Mass of left ovary: Operative Report Date of Procedure: 08/21/22 Preoperative diagnosis: 7 cm complex ovarian mass on the left adnexa Postoperative diagnosis: 7 cm complex ovarian mass on left adnexa with adhesions to the descending colon and left pelvic sidewall Procedure: Laparoscopic left oophorectomy, lysis of adhesions and pelvic washings Surgeon: Dr. Alessia Lentz Documentation Billing Clerk: DAVID Zavala Estimated blood loss: 30 cc Fluids given during the procedure: 1100 cc of crystalloid urine output: 50cc Complications: None Preoperative note: This is a 47-year-old with a BMI of 46.4 kg who presented to our office with a complaint of left lower quadrant pain. She has a history of a hysterectomy in the past. Ultrasound showed a large left adnexal 7 cm ovarian mass with septations and the complex nature. A CA125 and CEA level was drawn and these were noted to be normal. Procedure: The patient was brought to the operating room where general anesthesia was found to be adequate she was prepped and draped in the normal sterile fashion in a supine position. A Nicole catheter was placed. Attention was turned towards the abdomen an infraumbilical skin incision was made with a scalpel after quarter percent Marcaine was injected. A 5 mm laparoscope was inserted into the abdomen under direct visualization using the 5 mm laparoscope. CO2 gas was used to insufflate the abdomen and the patient was placed in Trendelenburg position. A left lower quadrant 10 mm trocar was inserted under direct visualization and a right lower quadrant 5 mm trocar was also inserted under direct visualization both after quarter percent Marcaine was injected. Pelvic washings were collected first before starting the procedure. Bowel was swept away gently and the right ovary was noted to be normal the left ovary was enlarged and adherent to the epiploic attachments of the descending colon and to the left pelvic sidewall. Fine dissection was performed first with sharp dissection and then with Holly dissection followed by use of the LigaSure device to carefully separate the ovary from the surrounding structures. The infundibulopelvic ligament was identified and cauterized and cut using the LigaSure device. After Careful dissection, the ovary was placed into an Endo Catch bag. It was noted at that time that the ovary was incidentally ruptured and clear fluid spilled into the pelvis that was then suctioned. The ovary was placed in a 10 mm Endo Catch bag and brought to the level of the fascia. The fascial incision was extended slightly and the ovary was removed through the incision. Careful inspection of the operative site showed some mild oozing at the edges of the epiploic in the peritoneum electrocautery was performed gently with the LigaSure device. Fibrillar and Floseal were applied and excellent hemostasis was noted. A Elier Connors suture closure device was used to close the left lower quadrant 10 mm fascial site with an 0 Vicryl suture. At this time the procedure was ended all instruments were removed from the abdomen. The skin was closed with a 4-0 Monocryl sponge lap and needle counts were correct x2 and she is now being brought to the recovery room in stable condition Multi Select Codes Urinary/Genital Urinary/Genital CPT Codes: 84182 Laproscopic BS/O
[2022-08-21] MEDS: Bupivacaine 0.25% 30 ML Vial (13:41)
[2022-08-21 14:07] LABS: Cytology, Body Fluid / CSF SEE PATHOLOGY REPORT
[2022-08-21] MEDS: HYDROcodone Bitartrate/Apap 5/325 Tablet PO (15:25)
[2022-08-21 16:00] LABS: Bedside Glucose 134 mg/dL (74-106)
== END 2022-08-21 16:18 | disposition home or self-care (01) ==
LOC: SDC 10:42 → AC 10:42
PROVIDERS: Anesthesiology; Obstetrics & Gynecology; PCP Family Medicine; Referring Provider Obstetrics & Gynecology; Visit Provider Obstetrics & Gynecology
PROC: (CPT 58720; principal; 2022-08-21 11:55)
DX: D27.1 Benign neoplasm of left ovary (principal); J44.9 Chronic obstructive pulmonary disease, unspecified; E66.01 Morbid (severe) obesity due to excess calories; Z68.41 Body mass index [BMI] 40.0-44.9, adult; E11.9 Type 2 diabetes mellitus without complications; N83.8 Other noninflammatory disorders of ovary, fallopian tube and broad ligament; N73.6 Female pelvic peritoneal adhesions (postinfective); I10 Essential (primary) hypertension; Z87.891 Personal history of nicotine dependence; Z86.711 Personal history of pulmonary embolism
CPT/HCPCS: 58661; 00840; 36415; 80053; 82962; 83036; 85025; 86850; 86900; 86901; 88108; 88305; 88307; 88313; J7120; J2405

== ENCOUNTER → 2022-09-02 | Outpatient (CLI) | payer BC, SELFPAY | END | disposition home or self-care (01) | PROVIDERS: PCP Family Medicine; Visit Provider Obstetrics & Gynecology | DX: R30.0 Dysuria (principal) | CPT/HCPCS: 87086; 87088 ==

== ENCOUNTER → 2022-09-28 | Outpatient (CLI) | payer BC, SELFPAY | END | disposition home or self-care (01) | LOC: LABSPEC 10:18 | PROVIDERS: PCP Family Medicine; Referring Provider Physician Assistant Surgical; Visit Provider Physician Assistant Surgical | DX: M54.50 Low back pain, unspecified (principal) ==

== ENCOUNTER → 2023-01-12 | Outpatient (CLI) | payer BC, SELFPAY ==
[2023-01-12 17:52] LABS: Bacteria 0 SEEN /hpf (None Seen); Mucous, Urine 0 SEEN /hpf (<or=2+); Red Blood Cells-Urine 0 SEEN /hpf (0-5); White Blood Cells 0 SEEN /hpf (0-5)
[2023-01-12 18:32] LABS: Color, Urine Yellow (Yellow); Glucose, Dipstick Normal (Normal); Ketone-Dipstick Negative (Negative); Leukocyte Esterase-Dipstick Negative /ul (Negative); Nitrite-Dipstick Negative (Negative); Occult Blood-Urine Negative /ul (Negative); Protein-Dipstick Negative (Negative); Urine Bilirubin Dipstick Negative (Negative); Urine Clarity Clear (Clear); Urine Urobilinogen Normal (Normal); Urine pH 6.5 (5.0 - 8.0)
[2023-01-12 19:07] LABS: Squamous Epithelial Cells - UA 0-5 SEEN /hpf (5-10)
== END | disposition home or self-care (01) ==
PROVIDERS: PCP Family Medicine; Visit Provider Physician Assistant
DX: N39.0 Urinary tract infection, site not specified (principal)
CPT/HCPCS: 81001; 87086; 87088

== ENCOUNTER → 2023-11-22 | Outpatient (CLI) | payer BC, SELFPAY ==
--- NOTE | 2023-11-22 09:13 | BI_ITS ---
MAMMOGRAPHY - BILATERAL SCREENING REASON FOR EXAM: Female, 48 years old. Routine annual screening examination. PERTINENT HISTORY: Aunt with breast cancer. TECHNIQUE: Digital bilateral breast ramiro (3D mammographic acquisition) in the CC and MLO projections. 2-D mediolateral oblique (MLO) and craniocaudad (CC) views of both breasts were obtained. CAD: Full Field Digital Mammography with Computer Added Detection was performed. COMPARISON: Comparison is made with prior study July 29, 2022 and August 13, 2021. FINDINGS: Breast Composition: The breasts are heterogeneously dense, which may obscure small masses. There are no dominant masses or suspicious calcifications. Stable benign-appearing bilateral axillary lymph nodes. No other significant abnormalities are identified. There has been no significant change since the prior study. BI/SCRN MAMM (CAD)W/RAMIRO BILAT IMPRESSION: Stable bilateral screening mammogram. Yearly follow-up mammogram recommended. (A) ASSESSMENT CATEGORY: BIRADS Category 2: Benign. A letter regarding these results will be sent to the patient by the facility within 30 days. Approximately 10% of breast cancers are not detected by mammography. A normal mammogram should not delay biopsy of a clinically suspicious abnormality. [id number] Electronically Signed: Santhosh Morse MD at 11:57 EST ,
== END | disposition home or self-care (01) ==
PROVIDERS: PCP Family Medicine; Referring Provider Obstetrics & Gynecology; Visit Provider Obstetrics & Gynecology
DX: Z12.31 Encounter for screening mammogram for malignant neoplasm of breast (principal); Z80.3 Family history of malignant neoplasm of breast
CPT/HCPCS: 77063; 77067

== ENCOUNTER → 2023-12-10 | Outpatient (CLI) | payer MEDICARE, SELFPAY ==
--- OUTSIDE RECORDS SUMMARY | 2023-12-10 19:12 | XMS RPT_ITS | CCD ---
Author Name Unknown Address [id number] [place] [address] Organization [facility] Care Team Providers Care Field Marketing Lead Name Role Phone Sandie Max LPN Unavailable Unavaila ble Sandie Holman Unavailable Unavailable Sandie Holman Unavailable Unavailable Han Shaikh DO Unavailable Mauriec ORLANDO Ynes A Unavailable Unavailab Angelica Mohan MD Unavailable [phone] Maurice ORLANDO Ynes A Unavailable Unavailab drew Richards LPN Ynes Basim Unavailable Unavailab Horace Petit MD Primary Care Provider BRIAN BEARDEN Attending Unavailable BRIAN BEARDEN Referring Unavailable CEBUL, HORACE Primary Care Unavailable BRIAN BEARDEN Attending Unavailable SELF, SELF Referring Unavailable CEBUSushant, HORACE Primary Care Unavailable BRIAN BEARDEN Referring Unavailable CEBULHORACE Primary Care Unavailable BRIAN BEARDEN Attending Unavailable HILLS, AMARIS Consulting Unavailable HILLS, AMARIS Admitting Unavailable HILLS, AMARIS Primary Care Unavailable HILLS, AMARIS Attending Unavailable PROVIDER, UNKNOWN Consulting Unavailable HILLS, AMARIS Attending Unavailable HILLS, AMARIS Admitting Unavailable HILLS, AMARIS Primary Care Unavailable HILLS, AMARIS Consulting Unavailable PROVIDER, UNKNOWN Consulting Unavailable HILLS, AMARIS Consulting Unavailable HILLS, AMARIS Attending Unavailable HILLS, AMARIS Admitting Unavailable HILLS, AMARIS Primary Care Unavailable PROVIDER, UNKNOWN Consulting Unavailable HILLS, AMARIS Attending Unavailable HILLS, AMARIS Consulting Unavailable HILLS, AMARIS Admitting Unavailable HILLS, AMARIS Primary Care Unavailable PROVIDER, UNKNOWN Consulting Unavailable HILLS, AMARIS Attending Unavailable HILLS, AMARIS Consulting Unavailable [place]ER[place], AMARIS Admitting Unavailable [facility] AMARIS Primary Care Unavailable PROVIDER, UNKNOWN Consulting Unavailable SPENCER[place], AMARIS Attending Unavailable SP[place]ER[place], AMARIS Consulting Unavailable SP[place]ER[place], AMARIS Admitting Unavailable [place]ER[place], AMARIS Primary Care Unavailable PROVIDER, UNKNOWN Consulting Unavailable Allergies Allergy Classification Reported Allergen(s) Allergy Type Date of Onset Reaction(s) Facility (6 sources) penicillin g Drug Allergy 7 Rash [facility] Work Phone: (2 sources) Penicillins Propensity to adverse reactions to drug [facility] (1 source) Penicillins Drug allergy (disorder) [facility] (1 source) traMADol Drug Allergy [facility] Medications Current Medications Medication Drug Class(es) Dates Sig (Normalized) Sig (Original) 24 hr buPROPion hydrochloride 300 mg extended release oral tablet (2 sources) Aminoketone Start: 2 buPROPion 300 MG tablet XL cholecalciferol 0.01 mg oral tablet (2 sources) Vitamin D take 1 tablet by mouth once daily cholecalciferol 10 MCG (400 UNIT) tablet Take 400 Units by mouth daily. 0 Active 0.5 ml dulaglutide 3 mg/ml auto-injector (2 sources) GLP-1 Receptor Agonist Start: 2 Trulicity 1.5 MG/0.5ML Solution Pen-injector injection ferrous fumarate 18 mg oral tablet (2 sources) Ferrous Fumarate (Iron) 18 MG Tab CR Take by mouth. 0 Active hydroCHLOROthiazide 25 mg oral tablet (9 sources) Thiazide Diuretic Start: 2 hydroCHLOROthiazide 25 MG tablet Completed/Discontinued Medications Medication Drug Class(es) Dates Sig (Normalized) Sig (Original) acetaminophen 325 mg / HYDROcodone bitartrate 5 mg oral tablet (13 sources) Opioid Agonist Start: 03-10-2017 End: 03-30-2017 HYDROCODONE-ACETAM INOPHEN 5-325 MG TABS One tab every 6 hrs as needed for pain HYDROCODONE-ACETAM INOPHEN [id number] Sandie Holman 200 actuat albuterol 0.09 mg/actuat metered dose inhaler (7 sources) beta2-Adrenergic Agonist Start: 03-17-2017 take 2 spray(s) by inhalation every four hours PROVENTIL HFA 108 (90 Base) MCG/ACT AERS Inh two sprays every 4 hrs ALBUTEROL SULFATE [id number] Sandie Holman Problems Active Problems Problem Classification Problem Date Documented Da te Episodic/Chronic Diabetes mellitus with complications (2 sources) Type 2 diabetes mellitus with hyperglycemia; Translations: [Type 2 diabetes mellitus with hyperglycemia] Onset: 01-21-2023 Chronic Genitourinary symptoms and ill-defined conditions (1 source) Dysuria; Translations: [Dysuria] Onset: 08-30-2023 Episodic Malaise and fatigue (1 source) Other fatigue; Translations: [Other fatigue] Onset: 08-30-2023 Episodic Nonmalignant breast conditions (9 sources) Swelling of breast; Translations: [Unspecified lump in unspecified breast] Onset: 08-06-2022 Episodic Nutritional deficiencies (1 source) Vitamin D deficiency, unspecified; Translations: [Vitamin D deficiency, unspecified] Onset: 10-17-2022 Chronic Other aftercare (1 source) Other [facility] (current[facility] drug therapy; Translations: [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] Onset: 08-30-2023 Episodic Other connective tissue disease (1 source) Localized swelling of left upper limb; Translations: [Other specified soft tissue disorders] Episodic Other connective tissue disease (2 sources) Other specified soft tissue disorders; Translations: [Other specified soft tissue disorders] Onset: 08-06-2022 Episodic Other nutritional; endocrine; and metabolic disorders (6 sources) Obesity; Translations: [Obesity, unspecified] Onset: 03-30-2017 03-30-2017 Chronic Other screening for suspected conditions (not mental disorders or infectious disease) (7 sources) No current problems or disability; Translations: [Abnormal findings on diagnostic imaging of breast] Onset: 08-06-2022 03-25-2017 Episodic Residual codes; unclassified (6 sources) Breathing-related sleep disorder; Translations: [Sleep apnea, unspecified] Onset: 03-30-2017 03-30-2017 Chronic Substance-related disorders (6 sources) Tobacco dependence in remission; Translations: [Nicotine dependence, unspecified, in remission] Onset: 03-30-2017 03-30-2017 Chronic Thyroid disorders (1 source) Nontoxic goiter, unspecified; Translations: [Nontoxic goiter, unspecified] Onset: 08-30-2023 Chronic Unclassified (1 source) Screening mammography ; Translations: [Encounter for screening mammogram for malignant neoplasm of breast] Onset: 08-09-2017 08-09-2017 Past or Other Problems Problem Classification Problem Date Documented Da te Episodic/Chronic Mood disorders (2 sources) Mood disorders Onset: 08-12-2022 08-12-2022 Other lower respiratory disease (6 sources) Solitary nodule of lung; Translations: [Solitary pulmonary nodule] Onset: 03-30-2017 03-30-2017 Episodic Results Test Name Value Interpretation Reference Range Facil ity Vital Signs Date Time Vital Sign Value Performing Clinician Faci lity 08-12-2022 09:15-0400 Body temperature 98.4 [degF] Brian Lyon RESEARCH MANAGER-AIRPLANE INSPECTOR Work Phone: [facility] 08-12-2022 09:15-0400 Body weight 116.94 kg Brian Lyon RESEARCH MANAGER-AIRPLANE INSPECTOR Work Phone: [facility] 08-12-2022 09:15-0400 Diastolic blood pressure 59 mm[Hg] Brian Lyon RESEARCH MANAGER-AIRPLANE INSPECTOR Work Phone: [facility] 08-12-2022 09:15-0400 Heart rate 77 /min Brian Lyon RESEARCH MANAGER-AIRPLANE INSPECTOR Work Phone: [facility] 08-12-2022 09:15-0400 Systolic blood pressure 122 mm[Hg] Brian Lyon RESEARCH MANAGER-AIRPLANE INSPECTOR Work Phone: [facility] 03-30-2017 08:10-0400 Body height 162.56 cm Ynes Richards LPN [facility] Work Phone: 03-30-2017 08:10-0400 Body mass index (BMI) [Ratio] 43.08 kg/m2 Ynes Richards LPN [facility] Work Phone: 03-30-2017 08:10-0400 Body temperature 97.6 [degF] Ynes Yensho PORTAINER OPERATOR [facility] Phone: 03-30-2017 08:10-0400 Body weight 113.85 kg Ynes Yensho PORTAINER OPERATOR [facility] Phone: 03-30-2017 08:10-0400 Diastolic blood pressure 72 mm[Hg] Ynes Yensho PORTAINER OPERATOR [facility] Work Phone: 03-30-2017 08:10-0400 Heart rate 78 /min Ynes Yensho PORTAINER OPERATOR [facility] Phone: 03-30-2017 08:10-0400 Respiratory rate 18 /min Ynes Yensho PORTAINER OPERATOR [facility] Phone: 03-30-2017 08:10-0400 SaO2% (BldA) [Mass fraction] 98 % Ynes Yensho PORTAINER OPERATOR [facility] Phone: 03-30-2017 08:10-0400 Systolic blood pressure 120 mm[Hg] Ynes Yensho PORTAINER OPERATOR [facility] Phone: 03-30-2017 08:10-0400 Weight 113.85 kg Sandie Mansoor PORTAINER OPERATOR [facility] Phone: Encounters Encounter Date Encounter Type Care Provider Facility Start: 09-06-2023 ambulatory [facility] Start: 08-30-2023 End: 08-30-2023 ambulatory [facility] Start: 01-21-2023 End: 01-21-2023 ambulatory [facility] Start: 10-20-2022 End: 10-20-2022 ambulatory [facility] Start: 10-17-2022 End: 10-17-2022 ambulatory [facility] Start: 08-12-2022 ambulatory BRIAN BEARDEN Facility: [facility] Start: 08-12-2022 ambulatory BRIAN BEARDEN Facility: [facility] Start: 08-12-2022 End: 08-12-2022 Subsequent hospital visit by physician Brian Bearden APRN-VEGA Work Phone: [facility] Procedures Date Procedure Procedure Detail Performing Clinician Start: 08-30-2023 Urinalysis AMARIS KELSEY Plan of Treatment Date Care Activity Detail Author Start: 12-29-2027 Tetanus vaccination TETANUS [facility] Start: 07-29-2023 Screening for malignant neoplasm of breast MAMMOGRAM SCREENING DISCUSSION [facility] Start: 02-17-2023 End: 02-17-2023 Patient encounter procedure 02/17/2023 Office Visit Surgical Oncology Brian Bearden APRN-CNP [facility] [place] [address] Division of Surgical Oncology Start: 08-12-2022 End: 08-12-2022 Patient encounter procedure 08/12/2022 Appointment Mammography Brian Bearden APRN-CNP [address] [place] [address] [facility] Start: 08-12-2022 End: 08-12-2022 Patient encounter procedure Division of Surgical Oncology Start: 06-18-2022 Influenza vaccination INFLUENZA VACCINE (#1) [facility] Start: 2022 Screening for malignant neoplasm of colon COLORECTAL CANCER SCREENING DISCUSSION [facility] Start: 09-28-2017 End: 09-28-2017 Appointment Appointment [facility] Work Phone: Start: 08-09-2017 End: 08-09-2017 Mammogram, screening Mammogram, Screening, both breasts [facility] Work Phone: Start: 08-09-2017 End: 08-09-2017 Mammogram, screening Mammogram, Screening, both breasts [facility] Start: 2017 Lipid panel LIPID SCREENING [facility] Start: 04-29-2017 End: 04-29-2017 Patient encounter procedure Appointment [facility] Phone: Start: 03-30-2017 End: 03-30-2017 Complete sleep workup (PSG,CPAP as indicated) & Follow up Complete sleep workup (PSG,CPAP as indicated) & Follow up [facility] Phone: Start: 03-30-2017 End: 03-30-2017 Ct thorax w/o contrast material CT Chest without contrast [facility] Phone: Start: 03-30-2017 End: 03-30-2017 LEANN NORIEGA [facility] Phone: Start: 03-30-2017 End: 03-30-2017 Follow Up Appt 3 months Follow Up Appt 3 months [facility] Phone: Start: 03-30-2017 End: 03-30-2017 Pulmonary Function Test - complete Pulmonary Function Test - complete [facility] Phone: Start: 03-30-2017 End: 03-30-2017 Titration with Follow up (pt not on cpap) Titration with Follow up (pt not on cpap) [facility] Phone: Start: 03-30-2017 End: 03-30-2017 Patient encounter procedure Appointment [facility] Phone: Start: 03-30-2017 End: 03-30-2017 Complete sleep workup (PSG,CPAP as indicated) & Follow up Complete sleep workup (PSG,CPAP as indicated) & Follow up [facility] Phone: Start: 03-30-2017 End: 03-30-2017 Ct thorax w/o contrast material CT Chest without contrast [facility] Phone: Start: 03-30-2017 End: 03-30-2017 LEANN NORIEGA [facility] Phone: Start: 03-30-2017 End: 03-30-2017 Follow Up Appt 3 months Follow Up Appt 3 months [facility] Work Phone: Start: 03-30-2017 End: 03-30-2017 Pulmonary Function Test - complete Pulmonary Function Test - complete [facility] Work Phone: Start: 03-30-2017 End: 03-30-2017 Titration with Follow up (pt not on cpap) Titration with Follow up (pt not on cpap) [facility] Work Phone: Start: 1998 Screening for malignant neoplasm of cervix CERVICAL CANCER SCREENING DISCUSSION [facility] Start: 1992 HIV screening HIV SCREENING DISCUSSION [facility] Start: 1977 COVID-19 VACCINE (#1) COVID-19 VACCINE (#1) [facility] Start: 1977 Hepatitis C screening HEPATITIS C VIRUS SCREENING [facility] End: 08-06-2022 MG Breast Views [facility] Work Phone: Immunizations Immunization Date Immunization Notes Care Provider Brian murray 07-06-2017 influenza virus vaccine, unspecified formulation Brian Bearden RESEARCH MANAGER-AIRPLANE INSPECTOR Work Phone: [facility] Payers Date Payer Category Payer Unknown ASHLEY RAMIREZ O PPO POS [id number] 2021-Present [address] [place] [address] [id number] 2021 Unknown [id number] 1977 Unknown [id number] 1977 Unknown [id number] 1977 Unknown [id number] 1977 Unknown [id number] 1977 Unknown [id number] 1977 Unknown [id number] 1977 Unknown [id number] 1977 Unknown [id number] 1977 Unknown [id number] Private Health Insurance [id number] Social History Date Type Detail Facility Tobacco smoking stat [facility] Tobacco smoking consumption unknown [facility] Start: 1975 Sex Assigned At Not on file [facility] Start: 08-12-2022 Tobacco smoking stat [facility] Ex-smoker [facility] End: 10-18-2012 History of tobacco use Current smoker [facility] End: 10-18-2012 History of tobacco use Cigarette Smoker [facility] Start: 08-12-2022 Cigarettes smoked current (pack per day) - Reported 2 [facility] Start: 08-12-2022 Tobacco use and exposure Smokeless tobacco non-user [facility] Start: 08-12-2022 Alcohol intake Current drinke r of alcohol (finding) [facility] History of Present illness Narrative 08-12-2022 Kayla Hook - 08/12/2022 10:30 AM EDT Note Date & Type Note Facility 08-12-2022 History of Presen t illness Narrative 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 Pt declined documented in this encounter [facility] History and physical note 08-12-2022 GREGORY Osuna - 08/12/2022 9:15 AM EDT Note Date & Type Note Facility 08-12-2022 History and physical note Date of Service: 08/12/2022 History of Present Illness: Chief Complaint Patient presents with New Patient New Left breast and Left axillary mass Chastity Nunez is a 47 y.o. menopausal female who presents to the [facility] on 08/12/2022 for evaluation regarding bilateral breast and axillary pain, enlarged left lymph node seen on outside imaging. She reports first noticing these symptoms about 3 months ago. She has not noted any other masses, B/L skin changes, or focal breast. She has also noted new onset B/L spontaneous clear nipple discharge that occurs about once per week. She denies any breast manipulation. Her only new medication is Wellbutrin and discharge/breast pain is not listed as a side effect. She denies the use of supplements. She presents to the [facility] today for evaluation, 2nd opinion radiology review. She referred herself. Chastity Nunez reports examining her breasts intermittently. She denies any history of breast problems or previous breast biopsy. She denies any family history of ovarian cancer. There is a significant family history of colon cancer. She advises she had genetic testing at [facility] which was negative. Patient's mother is present today and advises (2) of her cousins had breast cancer. There are no first degree or 2nd degree family members with a history of breast cancer. 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 Last PAP: 2010 Para: 3 Age at of first child: 20 Age of menarche: 14 Age of menopause: unsure Patient denies hormonal therapy at this time. BREAST (GENERAL): Patient admits to self-breast exams and does them intermittently. Date of patient's first mammogram: 2016 Date of most recent mammogram: 07/2022 Bra/Cup Size: C BREAST(HISTORICAL BIOPSY/THERAPY/TREATMENT) Patient denies previous breast biopsy(s). Patient denies being told they personally have breast cancer or a breast malignancy. Patient denies chemotherapy, hormone therapy or radiation therapy during the last month. Family/Social History: Her family history includes Colorectal Cancer (age of onset: 61) in her maternal uncle; Colorectal Cancer (age of onset: 64) in her maternal uncle; Colorectal Cancer (age of onset: 65) in her maternal grandfather; Uterine Cancer (age of onset: 50) in her mother. She reports that she quit smoking about 9 years ago. Her smoking use included cigarettes. She has a 32.00 pack-year smoking history. She has never used smokeless tobacco. She reports current alcohol use of about 1.0 standard drink per week. She reports that she does not use drugs. Medications/Allergies/Immunizations: Current Outpatient Medications Medication Sig buPROPion 300 MG tablet XL cholecalciferol 10 MCG (400 UNIT) tablet Take 400 Units by mouth daily. cyanocobalamin 100 MCG tablet Take 100 mcg by mouth daily. Ferrous Fumarate (Iron) 18 MG Tab CR Take by mouth. hydroCHLOROthiazide 25 MG tablet pantoprazole [address] Castro 1.5 MG/0.5ML Solution Pen-injector injection Allergies Allergen Reactions Penicillins Hives There is no immunization history on file for this patient. Review of Systems: General/Constitutional: Negative for persistent fever, chills, fatigue, recent weight gain or loss. HEENT: No visual disturbances, diplopia. No hearing loss, tinnitus, sore throat, nosebleeds, and rhinorrhea. No dysphagia or odynophagia. Has intermittent ear ache and feeling feverish the past few weeks this has not disrupted her daily or desired activities. Cardiovascular: Negative chest pain, dyspnea on exertion, orthopnea or paroxysmal nocturnal dyspnea. +occasional palpitations that are sporadic may/may not correlate to stress, caffeine. +See below. Respiratory: No history of TB exposure. Negative for chronic or productive cough, hemoptysis, or asthma. Denies shortness of breath. Lymph/Heme: No history of hematologic malignancies or bleeding disorders. 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 No damage from LA. Gastrointestinal: Negative for abdominal pain, nausea, vomiting, diarrhea or changes in bowel habits. +low Ferritin and constipation since started iron. +Low abdominal pain and left ovarian concerns almost went to the ED, accompanied by cramping-does have a GREETING CARD WRITER she can follow up with. Genitourinary: Negative for dysuria or hematuria. No frequency, urgency, or hesitancy. Musculoskeletal: Negative for arthralgias, myalgias, or back pain. Neurological: Negative for dizziness, syncope, focal weakness. +migraines under control. Psychiatric: Negative for depression, anxiety or mood disorders. Endocrine: Negative for polyuria, polydipsia or hot/cold intolerance. Denies thyroid concerns. +DEXCOM she wears and uses Trulicity for T2DM. Skin: Negative for acute skin lesions. Physical Exam: Vital Signs: BP 122/59 Pulse 77 Temp 98.4 F (36.9 C) Wt 116.9 kg (257 lb 12.8 oz) Smoking Status Former , General/Constitutional: Well developed, well nourished female, who looks their stated age of 47 y.o.. No acute distress. HEENT: Head: Normocephalic and atraumatic. Eyes: Pupils are equal, round, and reactive to light and accomodation. Extraocular movements are intact. Sclerae are anicteric. Neck: Supple, non-tender, with no lymphadenopathy. No jugular venous distension, carotid bruits, or tracheal deviation. Cardiac: Regular rate and rhythm. Normal S1, S2. No murmurs, rubs or gallops. Pulmonary/Chest: Lungs are clear to auscultation bilaterally. No wheezes, rhonchi or rales noted. Breast/ChestWall: Examined sitting and supine. Breasts appear large, ptotic symmetric. There are no dominant masses present in either breast. There are no nipple abnormalities or skin changes bilaterally. There is no supraclavicular or axillary adenopathy present. There is no significant breast pain or tenderness on exam today. +mild tenderness to palpation in the B/L axilla. Significant B/L fatty axillary pads and what appears to be B/L accessory tissue. Abdominal: Normoactive bowel sounds in all four quadrants. Soft, non-tender, non-distended. No organomegaly. No abdominal wall hernias. No guarding, rebound, or CVA tenderness. Extremities: Normal range of motion in all four extremities, with normal strength equally and symmetrically. No cyanosis or clubbing or peripheral edema. Peripheral Vascular Exam: Normal radial, posterior tibialis, and dorsalis pedis arterial pulses. Neurological: Conscious, alert and oriented. Cranial nerves II through XII are intact grossly and symmetrically. No focal neurologic deficit. Skin: Skin is warm and dry. She is not diaphoretic. Psychiatric: Appropiate mood and affect for her clinical situation. Imaging Data: EXAM: BREAST IMAGING SECOND OPINION READING, 08/06/2022 09:38 AM CLINICAL INDICATIONS: 47 year underwent outside diagnostic mammogram bilaterally July 29, 2022 indication states painful bilateral axillary regions following Covid vaccine. Impression states stable bilateral diagnostic mammogram. The patient had an ultrasound as well of the axilla bilaterally. The outside report states BI-RADS Category 4 enlarged lymph node in the left axilla biopsy may be considered. The patient's clinician has requested a formal second opinion of the recent outside breast imaging studies. COMPARISON: August 13, 2021, February 12, 2020, February 09, 2019, August 21, 2017 MAMMOGRAM FINDINGS: No recent screening mammogram submitted for review. BILATERAL DIAGNOSTIC MAMMOGRAM WITH TOMOSYNTHESIS, performed at outside institution July 29, 2022 The breasts have scattered areas of fibroglandular density. No suspicious mass architectural distortion or suspicious microcalcifications seen allowing for outside technique. Overall the mammographic appearance is grossly similar to prior. There are benign-appearing axillary lymph nodes seen. ULTRASOUND FINDINGS: BILATERAL AXILLARY ULTRASOUND, performed at outside institution July 29, 2022 Images labeled right axilla demonstrate a morphologically benign-appearing axillary lymph node with measurements provided of 1.2 x 1 x 0.6 cm and 1 x 1 x 0.5 cm. Images labeled left axilla demonstrate morphologically benign-appearing lymph node measuring 3.7 x 2.4 x 1.2 cm including thin uniform cortex and preserved fatty jessi. This corresponds with a large fatty replaced lymph node seen on the mammogram which is unchanged. MRI FINDINGS: No recent outside Breast MRI submitted for review IMPRESSION: No specific mammographic evidence of malignancy seen bilaterally on the recent mammogram. The outside ultrasound of the axilla bilaterally demonstrates benign-appearing lymph nodes. No suspicious axillary lymphadenopathy is identified on the outside ultrasound images provided. Suggest correlation with the clinical exam and scenario. : US BREAST LIMITED BILATERAL, 08/12/2022 10:57 AM CLINICAL INDICATIONS: 47-year-old female who presents for evaluation of new onset of bilateral clear spontaneous nipple discharge for 3 months. COMPARISON: Mammogram 07/29/2022, 08/13/2021 FINDINGS: Targeted ultrasound the subareolar right breast shows a duct containing hypoechoic and isoechoic debris measuring 0.2 cm in diameter at 12:00 and a similar appearing duct at 9:00. Vascularity is normal. No intraductal mass is identified. Targeted ultrasound of the subareolar left breast shows no evidence of duct ectasia. There are a few ducts containing anechoic fluid measuring 0.1 cm in diameter. Vascularity is normal. No mass is identified. IMPRESSION: No suspicious sonographic finding identified. 2 ducts containing debris were identified in the right breast at 12:00 and 9:00 subareolar with no intraductal mass identified. BI-RADS: 2: Benign Recommendation: Clinical correlation/management. Recommendation Laterality: Right Impression and Plan: Impression: Ms. Nunez is a 47 year old female that presents today to the [facility] for evaluation of outside breast and axillary imaging as well as B/L breast and B/L axillary discomfort x 3 months. She has also noted B/L spontaneous clear nipple discharge x 3 months. Medications appear non contributory. LEFT axillary imaging was reported as a BiRads 4. I shared the results of the [facility] 2nd opinion radiology review completed by Dr. Diana. I advised there was no specific mammographic evidence of malignancy B/L. I advised the outside ultrasound of the B/L axilla B/L demonstrates benign appearing lymph nodes and there is no suspicious axillary lymphadenopathy-we reviewed the left axillary morphologically benign appearing LN measuring 3.7 x 1.2 cm that corresponds with a large fatty replaced LN on mammogram that has been unchanged. I reassured that clinical exam is without suspicious concerns. In regards to the new report of B/L clear spontnaeous nipple discharge I did recommend B/L subareolar ultraounds and Ms. Nunez was agreeable to this. I reviewed the findings of the B/L subareolar US completed today and advised there were no suspicious findings, no intraductal masses, but there were 2 ducts containing debris in the right breast. The imaging was benign, BiRads 2. Her most recent vaccine was 07/2021. Plan: I recommended she obtain/utilize a well fitting, supportive bra to stabilize/support the breast tissue. I asked that she avoid any type of breast manipulation/expression. I strongly that she call for any bloody nipple discharge and that breast MRI could be considered. I recommended she call for any breast related concerns. Today we reviewed the importance of engaging in self breast awareness. I advised it is important to know how your breasts normally look and feel so that changes are able to be detected. I recommended the patient call for evaluation if a change is seen or felt in either breast. This includes, but is not limited to: changes to the nipple which includes scaling, discharge, inversion, rashes or sores, signs of breast infection (+/- pain, +/-erythema, +/- excess warmth), new lumps under the arm pit, sudden changes in shape or size of the breast(s), skin irritation to the breast or nipples, dimpling or skin thickening, or darkening of the breasts. Written literature from the [facility] was provided today regarding breast health. Today we discussed cyclical/noncyclical breast pain. I provided reassurance that breast pain is not a common sign of breast cancer and that today's clinical breast exam and breast imaging are without suspicious findings. We reviewed common causes of breast pain. We discussed that chronic breast pain can be a difficult problem to manage and treat, both from the perspective of the patient and from the perspective of the treating provider as often times no clear etiology can be found. We reviewed strategies to mitigate breast pain including obtaining/maintaining a healthy weight which may lower circulating endogeneous estrogen levels thus decreasing chronic breast pain, elimination/reduction of caffeine, smoking cessation, participation in moderate physical activity, addition of oral Flax Seed 25 grams daily if deemed safe by a healthcare provider, decreasing sodium intake, and decreasing alcohol intake. I encouraged the utilization of a well fitting supportive bra, such as a sports bra. I advised that utilization of over the counter (OTC) analgesics could be helpful if deemed safe by a healthcare provider. Further, I advised that topical OTC Voltaren Gel 1% could be a helpful analgesic. [facility] patient education literature was provided regarding breast pain (mastalgia). Urged to call for any breast related changes or if the breast pain failed to improve or worsened. Contact information was provided. RTC 6 months for repeat clinical exam/follow up of nipple discharge. Obtain genetics results from [facility]. These records have been requested. GREGORY Fowler, TERRY Breast Surgical Oncology [facility] and [facility] [place] [facility] P: [phone] [facility] History and physical note 08-12-2022 GREGORY Osuna - 08/12/2022 9:15 AM EDT Note Date & Type Note Facility 08-12-2022 History and physical note Date of Service: 08/12/2022 History of Present Illness: Chief Complaint Patient presents with New Patient New Left breast and Left axillary mass Chastity Nunez is a 47 y.o. menopausal female who presents to the [facility] on 08/12/2022 for evaluation regarding bilateral breast and axillary pain, enlarged left lymph node seen on outside imaging. She reports first noticing these symptoms about 3 months ago. She has not noted any other masses, B/L skin changes, or focal breast. She has also noted new onset B/L spontaneous clear nipple discharge that occurs about once per week. She denies any breast manipulation. Her only new medication is Wellbutrin and discharge/breast pain is not listed as a side effect. She denies the use of supplements. She presents to the [facility] today for evaluation, 2nd opinion radiology review. She referred herself. Chastity Nunez reports examining her breasts intermittently. She denies any history of breast problems or previous breast biopsy. She denies any family history of ovarian cancer. There is a significant family history of colon cancer. She advises she had genetic testing at [facility] which was negative. Patient's mother is present today and advises (2) of her cousins had breast cancer. There are no first degree or 2nd degree family members with a history of breast cancer. 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 Last PAP: 2010 Para: 3 Age at of first child: 20 Age of menarche: 14 Age of menopause: unsure Patient denies hormonal therapy at this time. BREAST (GENERAL): Patient admits to self-breast exams and does them intermittently. Date of patient's first mammogram: 2016 Date of most recent mammogram: 07/2022 Bra/Cup Size: C BREAST(HISTORICAL BIOPSY/THERAPY/TREATMENT) Patient denies previous breast biopsy(s). Patient denies being told they personally have breast cancer or a breast malignancy. Patient denies chemotherapy, hormone therapy or radiation therapy during the last month. Family/Social History: Her family history includes Colorectal Cancer (age of onset: 61) in her maternal uncle; Colorectal Cancer (age of onset: 64) in her maternal uncle; Colorectal Cancer (age of onset: 65) in her maternal grandfather; Uterine Cancer (age of onset: 50) in her mother. She reports that she quit smoking about 9 years ago. Her smoking use included cigarettes. She has a 32.00 pack-year smoking history. She has never used smokeless tobacco. She reports current alcohol use of about 1.0 standard drink per week. She reports that she does not use drugs. Medications/Allergies/Immunizations: Current Outpatient Medications Medication Sig buPROPion 300 MG tablet XL cholecalciferol 10 MCG (400 UNIT) tablet Take 400 Units by mouth daily. cyanocobalamin 100 MCG tablet Take 100 mcg by mouth daily. Ferrous Fumarate (Iron) 18 MG Tab CR Take by mouth. hydroCHLOROthiazide 25 MG tablet pantoprazole [address] Castro 1.5 MG/0.5ML Solution Pen-injector injection Allergies Allergen Reactions Penicillins Hives There is no immunization history on file for this patient. Review of Systems: General/Constitutional: Negative for persistent fever, chills, fatigue, recent weight gain or loss. HEENT: No visual disturbances, diplopia. No hearing loss, tinnitus, sore throat, nosebleeds, and rhinorrhea. No dysphagia or odynophagia. Has intermittent ear ache and feeling feverish the past few weeks this has not disrupted her daily or desired activities. Cardiovascular: Negative chest pain, dyspnea on exertion, orthopnea or paroxysmal nocturnal dyspnea. +occasional palpitations that are sporadic may/may not correlate to stress, caffeine. +See below. Respiratory: No history of TB exposure. Negative for chronic or productive cough, hemoptysis, or asthma. Denies shortness of breath. Lymph/Heme: No history of hematologic malignancies or bleeding disorders. 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 +PE and LA one week , PE resolved in hospital and did not take [facility] anti coagulants. No damage from LA. Gastrointestinal: Negative for abdominal pain, nausea, vomiting, diarrhea or changes in bowel habits. +low Ferritin and constipation since started iron. +Low abdominal pain and left ovarian concerns almost went to the ED, accompanied by cramping-does have a GREETING CARD WRITER she can follow up with. Genitourinary: Negative for dysuria or hematuria. No frequency, urgency, or hesitancy. Musculoskeletal: Negative for arthralgias, myalgias, or back pain. Neurological: Negative for dizziness, syncope, focal weakness. +migraines under control. Psychiatric: Negative for depression, anxiety or mood disorders. Endocrine: Negative for polyuria, polydipsia or hot/cold intolerance. Denies thyroid concerns. +DEXCOM she wears and uses Trulicity for T2DM. Skin: Negative for acute skin lesions. Physical Exam: Vital Signs: BP 122/59 Pulse 77 Temp 98.4 F (36.9 C) Wt 116.9 kg (257 lb 12.8 oz) Smoking Status Former , General/Constitutional: Well developed, well nourished female, who looks their stated age of 47 y.o.. No acute distress. HEENT: Head: Normocephalic and atraumatic. Eyes: Pupils are equal, round, and reactive to light and accomodation. Extraocular movements are intact. Sclerae are anicteric. Neck: Supple, non-tender, with no lymphadenopathy. No jugular venous distension, carotid bruits, or tracheal deviation. Cardiac: Regular rate and rhythm. Normal S1, S2. No murmurs, rubs or gallops. Pulmonary/Chest: Lungs are clear to auscultation bilaterally. No wheezes, rhonchi or rales noted. Breast/ChestWall: Examined sitting and supine. Breasts appear large, ptotic symmetric. There are no dominant masses present in either breast. There are no nipple abnormalities or skin changes bilaterally. There is no supraclavicular or axillary adenopathy present. There is no significant breast pain or tenderness on exam today. +mild tenderness to palpation in the B/L axilla. Significant B/L fatty axillary pads and what appears to be B/L accessory tissue. Abdominal: Normoactive bowel sounds in all four quadrants. Soft, non-tender, non-distended. No organomegaly. No abdominal wall hernias. No guarding, rebound, or CVA tenderness. Extremities: Normal range of motion in all four extremities, with normal strength equally and symmetrically. No cyanosis or clubbing or peripheral edema. Peripheral Vascular Exam: Normal radial, posterior tibialis, and dorsalis pedis arterial pulses. Neurological: Conscious, alert and oriented. Cranial nerves II through XII are intact grossly and symmetrically. No focal neurologic deficit. Skin: Skin is warm and dry. She is not diaphoretic. Psychiatric: Appropiate mood and affect for her clinical situation. Imaging Data: EXAM: BREAST IMAGING SECOND OPINION READING, 08/06/2022 09:38 AM CLINICAL INDICATIONS: 47 year underwent outside diagnostic mammogram bilaterally July 29, 2022 indication states painful bilateral axillary regions following Covid vaccine. Impression states stable bilateral diagnostic mammogram. The patient had an ultrasound as well of the axilla bilaterally. The outside report states BI-RADS Category 4 enlarged lymph node in the left axilla biopsy may be considered. The patient's clinician has requested a formal second opinion of the recent outside breast imaging studies. COMPARISON: August 13, 2021, February 12, 2020, February 09, 2019, August 21, 2017 MAMMOGRAM FINDINGS: No recent screening mammogram submitted for review. BILATERAL DIAGNOSTIC MAMMOGRAM WITH TOMOSYNTHESIS, performed at outside institution July 29, 2022 The breasts have scattered areas of fibroglandular density. No suspicious mass architectural distortion or suspicious microcalcifications seen allowing for outside technique. Overall the mammographic appearance is grossly similar to prior. There are benign-appearing axillary lymph nodes seen. ULTRASOUND FINDINGS: BILATERAL AXILLARY ULTRASOUND, performed at outside institution July 29, 2022 Images labeled right axilla demonstrate a morphologically benign-appearing axillary lymph node with measurements provided of 1.2 x 1 x 0.6 cm and 1 x 1 x 0.5 cm. Images labeled left axilla demonstrate morphologically benign-appearing lymph node measuring 3.7 x 2.4 x 1.2 cm including thin uniform cortex and preserved fatty jessi. This corresponds with a large fatty replaced lymph node seen on the mammogram which is unchanged. MRI FINDINGS: No recent outside Breast MRI submitted for review IMPRESSION: No specific mammographic evidence of malignancy seen bilaterally on the recent mammogram. The outside ultrasound of the axilla bilaterally demonstrates benign-appearing lymph nodes. No suspicious axillary lymphadenopathy is identified on the outside ultrasound images provided. Suggest correlation with the clinical exam and scenario. : US BREAST LIMITED BILATERAL, 08/12/2022 10:57 AM CLINICAL INDICATIONS: 47-year-old female who presents for evaluation of new onset of bilateral clear spontaneous nipple discharge for 3 months. COMPARISON: Mammogram 07/29/2022, 08/13/2021 FINDINGS: Targeted ultrasound the subareolar right breast shows a duct containing hypoechoic and isoechoic debris measuring 0.2 cm in diameter at 12:00 and a similar appearing duct at 9:00. Vascularity is normal. No intraductal mass is identified. Targeted ultrasound of the subareolar left breast shows no evidence of duct ectasia. There are a few ducts containing anechoic fluid measuring 0.1 cm in diameter. Vascularity is normal. No mass is identified. IMPRESSION: No suspicious sonographic finding identified. 2 ducts containing debris were identified in the right breast at 12:00 and 9:00 subareolar with no intraductal mass identified. BI-RADS: 2: Benign Recommendation: Clinical correlation/management. Recommendation Laterality: Right Impression and Plan: Impression: Ms. Nunez is a 47 year old female that presents today to the [facility] for evaluation of outside breast and axillary imaging as well as B/L breast and B/L axillary discomfort x 3 months. She has also noted B/L spontaneous clear nipple discharge x 3 months. Medications appear non contributory. LEFT axillary imaging was reported as a BiRads 4. I shared the results of the [facility] 2nd opinion radiology review completed by Dr. Diana. I advised there was no specific mammographic evidence of malignancy B/L. I advised the outside ultrasound of the B/L axilla B/L demonstrates benign appearing lymph nodes and there is no suspicious axillary lymphadenopathy-we reviewed the left axillary morphologically benign appearing LN measuring 3.7 x 1.2 cm that corresponds with a large fatty replaced LN on mammogram that has been unchanged. I reassured that clinical exam is without suspicious concerns. In regards to the new report of B/L clear spontnaeous nipple discharge I did recommend B/L subareolar ultraounds and Ms. Nunez was agreeable to this. I reviewed the findings of the B/L subareolar US completed today and advised there were no suspicious findings, no intraductal masses, but there were 2 ducts containing debris in the right breast. The imaging was benign, BiRads 2. Her most recent vaccine was 07/2021. Plan: I recommended she obtain/utilize a well fitting, supportive bra to stabilize/support the breast tissue. I asked that she avoid any type of breast manipulation/expression. I strongly that she call for any bloody nipple discharge and that breast MRI could be considered. I recommended she call for any breast related concerns. Today we reviewed the importance of engaging in self breast awareness. I advised it is important to know how your breasts normally look and feel so that changes are able to be detected. I recommended the patient call for evaluation if a change is seen or felt in either breast. This includes, but is not limited to: changes to the nipple which includes scaling, discharge, inversion, rashes or sores, signs of breast infection (+/- pain, +/-erythema, +/- excess warmth), new lumps under the arm pit, sudden changes in shape or size of the breast(s), skin irritation to the breast or nipples, dimpling or skin thickening, or darkening of the breasts. Written literature from the [facility] was provided today regarding breast health. Today we discussed cyclical/noncyclical breast pain. I provided reassurance that breast pain is not a common sign of breast cancer and that today's clinical breast exam and breast imaging are without suspicious findings. We reviewed common causes of breast pain. We discussed that chronic breast pain can be a difficult problem to manage and treat, both from the perspective of the patient and from the perspective of the treating provider as often times no clear etiology can be found. We reviewed strategies to mitigate breast pain including obtaining/maintaining a healthy weight which may lower circulating endogeneous estrogen levels thus decreasing chronic breast pain, elimination/reduction of caffeine, smoking cessation, participation in moderate physical activity, addition of oral Flax Seed 25 grams daily if deemed safe by a healthcare provider, decreasing sodium intake, and decreasing alcohol intake. I encouraged the utilization of a well fitting supportive bra, such as a sports bra. I advised that utilization of over the counter (OTC) analgesics could be helpful if deemed safe by a healthcare provider. Further, I advised that topical OTC Voltaren Gel 1% could be a helpful analgesic. [facility] patient education literature was provided regarding breast pain (mastalgia). Urged to call for any breast related changes or if the breast pain failed to improve or worsened. Contact information was provided. RTC 6 months for repeat clinical exam/follow up of nipple discharge. Obtain genetics results from [facility]. These records have been requested. GREGORY Fowler, PRIETOP Breast Surgical Oncology [facility] and Adol[facility] Courtney [facility] P: [phone] documented in this encounter [facility] History of Present illness Narrative 08-12-2022 Oxana Beverly RN - 08/12/2022 9:15 AM EDT Note Date & Type Note Facility 08-12-2022 History of Presen t illness Narrative Chastity Nunez was offered and declined a Medical Sole Trimmer for this exam/procedure/test 08/12/2022. documented [facility] this encounter [facility] note Note Date & Type Note Facility documented in this encounter [facility] Evaluation note Note Date & Type Note Facility [facility] in this encounter [facility] note Note Date & Type Note Facility documented in this encounter [facility] Instructions Attachments Note Date & Type Note Facility Instructions The following attachments cannot be sent through Care Everywhere.Breast Pain (Mastalgia) ([facility]) ([place])Breast Health ([facility]) ([place])documented in this encounter [facility] Summary Purpose Family History No Family History Records FoundNo Family History Records FoundNo Family History Records FoundNo Family History Records Found Advance Directives No Advanced Directives Records FoundNo Advanced Directives Records FoundNo Advanced Directives Records FoundNo Advanced Directives Records Found Reason for Referral Specialty Diagnoses / Procedures Referred By Robinson carranza Referred To Contact Diagnoses Bilateral nipple discharge Procedures US BREAST LIMITED BILATERAL US BREAST LIMITED BILATERAL Brian Bearden, RESEARCH MANAGER-AIRPLANE INSPECTOR [address] [place] [address] Referral ID Status Reason Start Date Expiration Date V isits Requested Visits Authorized [id number] New Request 08/12/2022 09/06/2023 1 1 Additional Source Comments INFORMATION SOURCE (unrecogn ized section and content) DATE CREATED AUTHOR AUTHOR'S ORGANIZ ATION 08/13/2022 [facility] DATE CREATED AUTHOR AUTHOR'S ORGANIZ ATION 09/02/2023 [facility] DATE CREATED AUTHOR AUTHOR'S ORGANIZ ATION [facility] Reason for Visit (unrecogniz ed section and content) Referral ID Status Reason Start Date Expiration Date V isits Requested Visits Authorized [id number] New Request 08/06/2022 08/31/2023 1 1 Reason Comments New Patient New Left breast and Left axillary mass Specialty Diagnoses / Procedures Referred By Robinson carranza Referred To Contact Certified Nurse Practitioner / Surgical Oncology Diagnoses New- 2nd opinion- L axillary & breast swelling - imaging at [facility]- self-referral Procedures NEW DIAGNOSTIC BREAST CLINIC Self, Self Brian Bearden, RESEARCH MANAGER-AIRPLANE INSPECTOR [address] [place] [address] Referral ID Status Reason Start Date Expiration Date V isits Requested Visits Authorized [id number] New Request 08/12/2022 09/06/2023 1 1 Specialty Diagnoses / Procedures Referred By Robinson carranza Referred To Contact Diagnoses Bilateral nipple discharge Procedures US BREAST LIMITED BILATERAL US BREAST LIMITED BILATERAL Brian Bearden, RESEARCH MANAGER-AIRPLANE INSPECTOR [address] [place] [address] Referral ID Status Reason Start Date Expiration Date V isits Requested Visits Authorized [id number] New Request 08/12/2022 09/06/2023 1 1 Care Teams (unrecognized sec tion and content) Field Marketing Lead Relationship Specialty Start Date End Date Horace Paniagua MD [address] [place] [phone] PCP - General Family Medicine 07/27/16 Field Marketing Lead Relationship Specialty Start Date End Date Horace Paniagua MD [address] [place] [phone] PCP - General Family Medicine 07/27/16 FOR RECORDS PERTAINING TO PATIENTS WHO ARE OR HAVE BEEN ENROLLED IN A CHEMICAL DEPENDENCY/SUBSTANCEABUSE PROGRAM, SOME INFORMATION MAY BE OMITTED. This clinical summary was aggregated from multiple sources. Caution should be exercised in using it in the provision of clinical care. This summary normalizes information from multiple sources, and as a consequence, information in this document may materially change the coding, format and clinical context of patient data. In addition, data may be omitted in some cases. CLINICAL DECISIONS SHOULD BE BASED ON THE PRIMARY CLINICAL RECORDS. [employer] [facility]. provides no warranty or guarantee of the accuracy or completeness of information in this document.
== END | disposition home or self-care (01) ==
PROVIDERS: PCP Family Medicine; Visit Provider Physician Assistant Surgical
DX: N39.0 Urinary tract infection, site not specified (principal)
CPT/HCPCS: 87086; 87088

== ENCOUNTER 2023-12-13 14:20 | Emergency (ER) | payer BC, SELFPAY ==
[2023-12-13 14:21] VITALS: BP 139/85; PULSE 98; RESP 18; TEMP 37.1; O2SAT 95
[2023-12-13 14:35] LABS: Bacteria 0 SEEN /hpf (None Seen); Mucous, Urine 0 SEEN /hpf (<or=2+); Red Blood Cells-Urine 0 SEEN /hpf (0-5)
[2023-12-13 14:41] LABS: Color, Urine Yellow (Yellow); Glucose, Dipstick Normal (Normal); Ketone-Dipstick Negative (Negative); Leukocyte Esterase-Dipstick 25 /ul (Negative); Nitrite-Dipstick Negative (Negative); Occult Blood-Urine Negative /ul (Negative); Protein-Dipstick Negative (Negative); Urine Bilirubin Dipstick Negative (Negative); Urine Clarity Clear (Clear); Urine Urobilinogen Normal (Normal)
[2023-12-13 14:52] LABS: Squamous Epithelial Cells - UA 0-5 SEEN /hpf (5-10); White Blood Cells 0-5 SEEN /hpf (0-5)
--- NOTE | 2023-12-13 16:08 | EX.ED.DYSGE1 ---
HPI <JR Napier - Last Filed: 12/13/23 19:39> History of Present Illness Chief Complaint: Complaint Narrative Narrative: 48-year-old female with past medical history of type 2 diabetes has had 3 weeks of bladder pressure, urgency and frequency. She was seen in urgent care 3 days ago and diagnosed with UTI. She has been taking Macrobid with no improvement. She has had bilateral flank and low back discomfort. No fever or chills. No vomiting. She has history of kidney stones but this does not feel similar. She states her blood sugars usually very well-controlled around 100 but today it was 185. PFS <JR Napier - Last Filed: 12/13/23 19:39> [facility] Medical History Alcohol use Anxiety Arthritis Asthma Back pain Blood disorder Cardiology follow-up encounter COPD (chronic obstructive pulmonary disease) CPAP (continuous positive airway pressure) dependence Diabetes Dietary restriction Essential (primary) hypertension Fatty liver Former smoker Former smoker Genetic testing of female GERD (gastroesophageal reflux disease) History of deep venous thrombosis History of echocardiogram History of edema History of kidney stones History of ulceration Hx of renal calculi Hypertension Leg cramps Migraine headache Migraines Myopericarditis Nephrolithiasis Non-STEMI (non-ST elevated myocardial infarction) (07/2008) Obesity Obstructive sleep apnea Other acute myringitis, left ear Pelvic pressure in female cardiomyopathy Pulmonary embolus (07/2008) Pulmonary nodule Shortness of breath on exertion Stomach ulcer Syncope Vitamin D deficiency Wears contact lenses Home Medications sumatriptan succinate 25 mg tablet (Imitrex) 25 mg PO .COMPLEX PRN 09/21/23 [History Last Taken Unknown] tirzepatide 2.5 mg/0.5 mL subcutaneous pen injector (Mounjaro) 12.5 mg subcut QWEEK 11/22/23 [History Last Taken Unknown] nitrofurantoin monohydrate/macrocrystals 100 mg capsule 1 cap PO Q12H 7 days #14 caps 12/10/23 [Rx Last Taken Unknown] phenazopyridine 200 mg tablet (Pyridium) 200 mg PO BID PRN PRN Pain #10 tabs 12/13/23 [Rx Last Taken Unknown] Allergy/AdvReac Type Severity Reaction Status Date / Time nickel [justice] Allergy Rash Verified 12/13/23 14:21 Penicillins Allergy Rash Verified 12/13/23 14:21 Family History Mother Diabetes Hypertension Cancer Uterine cancer Pancreatitis Father Diabetes Heart disease Hypertension CVA (cerebral vascular accident) Daughter Hearing loss Grandmother CVA (cerebral vascular accident) Other Gout Surgical History H/O: hysterectomy History of left heart catheterization (07/2008) History of shoulder surgery Hx of cholecystectomy Hx of tympanostomy tubes Status post left oophorectomy Social History Smoking Status: Former smoker quit date: 10/18/12 Tobacco: How many years used: 20 second hand exposure: No alcohol intake: current alcohol intake frequency: 0-2 drinks per day details: social substance use type: does not use caffeine: Yes what type of physical activity do you participate in: none seatbelt use: always do you feel safe at home: Yes additional social history: Patient works at the [employer] <JR Napier - Last Filed: 12/13/23 19:39> ROS ED ROS Narrative Constitutional: Negative for fever, chills. GI: Negative for abdominal pain, vomiting. : Positive for frequency. No hematuria. EXAM <JR Napier - Last Filed: 12/13/23 19:39> Physical Exam Narrative Exam Narrative: CONST: Patient sitting in no acute distress. EYES: Normal inspection. NECK: Normal inspection. RESP: No respiratory distress, CTAB. CVS: Regular rate and rhythm, no murmur, no gallop. ABD: Soft and nontender, no guarding or rebound, nondistended. Back: Normal inspection, tenderness bilateral thoracic and lumbar muscles to light touch. No focal CVA tenderness. SKIN: Color normal, no rash, warm, dry, intact. EXTREMITIES: Normal appearance, no pedal edema. NEURO: Oriented x4. PSYCH: Normal affect. Const Vital Signs: 12/13/23 14:21 12/13/23 16:20 Temperature 98.7 F Temperature Source Temporal Pulse Rate 98 Respiratory Rate 18 16 Blood Pressure 139/85 H Blood Pressure Mean 103 Pulse Ox 95 Oxygen Delivery Method Room Air <Dr. Josep Godwin MD - Last Filed: 12/13/23 16:57> Physical Exam Const Vital Signs: 12/13/23 14:21 12/13/23 16:20 Temperature 98.7 F Temperature Source Temporal Pulse Rate 98 Respiratory Rate 18 16 Blood Pressure 139/85 H Blood Pressure Mean 103 Pulse Ox 95 Oxygen Delivery Method Room Air MDM <JR Napier - Last Filed: 12/13/23 19:39> [facility] Narrative Medical decision making narrative: Patient has 3 weeks of urinary urgency and frequency. She has been on Macrobid for 3 days without change. She appears well and nontoxic and is afebrile with normal vital signs. Abdomen is soft and nontender. She has no focal CVA tenderness. She has no signs or symptoms concerning for kidney stone or pyelonephritis. Urinalysis is negative for infection. Her prior culture showed contamination. I did send a new culture and prescribe Pyridium for symptom control. Her bladder scan showed 120 cc so she is not retaining. She has not had vaginal discharge, bleeding, and states no concern for STI. I recommended follow-up with her PCP and she was discharged in stable condition. I have personally performed a face to face assessment of the patient and have reviewed the [facility] Note. I performed a substantive portion of the visit including all aspects of the following. My keys findings include: History is 48-year-old female with urinary frequency and urgency. She was seen in urgent care recently they thought she might have a UTI on a dip UA. Started her on Macrobid which she has been on for the last 3 to 4 days. No change in her symptoms. Of note the patient has had a hysterectomy in the past. She pees frequently even before this time. Exam is [well-appearing 48-year-old female. Vital signs stable afebrile. H EENT exam unremarkable. Neck nontender. Lungs clear to auscultation bilaterally. Heart regular rhythm no murmur. Abdomen soft, nondistended normal bowel sounds no peritoneal signs. Back nontender. Neurologically she is awake and alert no focal motor deficits.] Medical Decision Making [UA negative. Culture sent. This may be secondary to antibiotic clear in and out. Or she may never had a UTI TI to begin with. Patient will be discharged with outpatient follow-up with her MOHEL for urodynamic testing or follow-up with the urologist.] Other additions or changes: [Bladder scan was only 126 mL.] Lab Data Attestation: I reviewed the patient's lab results. Labs: Laboratory Results - last 24 hr 12/13/23 12/13/23 14:30 16:13 Urine Color Yellow Urine Clarity Clear Urine pH 6.0 Ur Specific [place] 1.020 Urine Protein Negative Urine Glucose (UA) Normal Urine Ketones Negative Urine Occult Blood Negative Urine Nitrite Negative Urine Bilirubin Negative Urine Urobilinogen Normal Ur Leukocyte Esterase 25 H Urine RBC 0 SEEN Urine WBC 0-5 SEEN Ur Squamous Epith Cells 0-5 SEEN Urine Bacteria 0 SEEN Urine Mucus 0 SEEN POC Glucose 86 <Dr. Josep Godwin MD - Last Filed: 12/13/23 16:57> MDM MDM Narrative Medical decision making narrative: Patient has 3 weeks of urinary urgency and frequency. She has been on Macrobid for 3 days without change. She appears well and nontoxic and is afebrile with normal vital signs. Abdomen is soft and nontender. She has no focal CVA tenderness. She has no signs or symptoms concerning for kidney stone or pyelonephritis. Urinalysis is negative for infection. Her prior culture showed contamination. I did send a new culture and prescribe Pyridium for symptom control. She has not had vaginal discharge, bleeding, and states no concern for STI. I recommended follow-up with her PCP and she was discharged in stable condition. I have personally performed a face to face assessment of the patient and have reviewed the [facility] Note. I performed a substantive portion of the visit including all aspects of the following. My keys findings include: History is 48-year-old female with urinary frequency and urgency. She was seen in urgent care recently they thought she might have a UTI on a dip UA. Started her on Macrobid which she has been on for the last 3 to 4 days. No change in her symptoms. Of note the patient has had a hysterectomy in the past. She pees frequently even before this time. Exam is [well-appearing 48-year-old female. Vital signs stable afebrile. H EENT exam unremarkable. Neck nontender. Lungs clear to auscultation bilaterally. Heart regular rhythm no murmur. Abdomen soft, nondistended normal bowel sounds no peritoneal signs. Back nontender. Neurologically she is awake and alert no focal motor deficits.] Medical Decision Making [UA negative. Culture sent. This may be secondary to antibiotic clear in and out. Or she may never had a UTI TI to begin with. Patient will be discharged with outpatient follow-up with her MOHEL for urodynamic testing or follow-up with the urologist.] Other additions or changes: [Bladder scan was only 126 mL.] Lab Data Labs: Laboratory Results - last 24 hr 12/13/23 12/13/23 14:30 16:13 Urine Color Yellow Urine Clarity Clear Urine pH 6.0 Ur Specific [place] 1.020 Urine Protein Negative Urine Glucose (UA) Normal Urine Ketones Negative Urine Occult Blood Negative Urine Nitrite Negative Urine Bilirubin Negative Urine Urobilinogen Normal Ur Leukocyte Esterase 25 H Urine RBC 0 SEEN Urine WBC 0-5 SEEN Ur Squamous Epith Cells 0-5 SEEN Urine Bacteria 0 SEEN Urine Mucus 0 SEEN POC Glucose 86 Discharge Plan Triage Chief Complaint: Complaint ED Midlevel Provider: Rebecca Jacobson ED Provider: Josep Godwin Dx/Rx/DC Orders Clinical Impression: Dysuria Instructions: ED Dysuria, Uncertain Cause (Adult) Prescriptions: New phenazopyridine [Pyridium] 200 mg tablet 200 mg PO BID PRN PRN (Reason: Pain) Qty: 10 0RF No Action sumatriptan succinate [Imitrex] 25 mg tablet 25 mg PO .COMPLEX PRN Rx Instructions: 25 mg orally PRN; Mounjaro 2.5 mg/0.5 mL pen injector 12.5 mg subcut QWEEK nitrofurantoin monohyd/m-cryst 100 mg capsule 1 cap PO Q12H 7 Days Qty: 14 0RF Rx Instructions: administer with a meal/food; swallow whole; do not open, crush, dissolve , or chew Primary Care Provider: Selena Langston Referrals: Angelica Juan MD [Med Staff - Active Staff] - Selena Langston PA-C [Primary Care Provider] - Activity Restrictions/Additional Instructions: Your urine today does not show signs of UTI. I prescribed Pyridium for your symptoms and recommend you follow-up with your primary care doctor. Disposition Disposition: Home, Self Care Discharge Date/Time: 12/13/23 16:51
[2023-12-13 16:20] VITALS: RESP 16
[2023-12-13 16:32] LABS: Bedside Glucose 86 mg/dL (74-106)
== END 2023-12-13 16:51 | disposition home or self-care (01) ==
PROVIDERS: Emergency Provider Emergency Medicine; PCP Family Medicine; Visit Provider Emergency Medicine
DX: R30.0 Dysuria (principal); J44.9 Chronic obstructive pulmonary disease, unspecified; E11.9 Type 2 diabetes mellitus without complications; Z87.891 Personal history of nicotine dependence; I10 Essential (primary) hypertension; G47.33 Obstructive sleep apnea (adult) (pediatric); Z99.89 Dependence on other enabling machines and devices; I25.2 Old myocardial infarction; Z79.899 Other long term (current) drug therapy; Z90.710 Acquired absence of both cervix and uterus; Z90.49 Acquired absence of other specified parts of digestive tract; Z90.721 Acquired absence of ovaries, unilateral
CPT/HCPCS: 81001; 82962; 87086; 87088; 99282

== ENCOUNTER 2024-02-21 17:54 | Emergency (ER) | payer BC, SELFPAY ==
[2024-02-21 17:55] VITALS: BP 125/71; PULSE 80; RESP 16; TEMP 36.7; O2SAT 98; BMI 37.9
--- NOTE | 2024-02-21 18:01 | EKG12_ITS ---
Test Reason : CP Blood Pressure : / mmHG Vent. Rate : 078 BPM Atrial Rate : 078 BPM P-R Int : 146 ms QRS Dur : 070 ms QT Int : 394 ms P-R-T Axes : 035 067 059 degrees QTc Int : 449 ms Normal sinus rhythm Normal ECG Confirmed by Mookie Wan ([id number]), material expeditor JACKY RODRIGUEZ ([id number]) on 02/22/2024 10:15:13 AM Referred By: ES/TA Confirmed By:Mookie Wan
--- NOTE | 2024-02-21 19:21 | ED.RN ---
Pt tells this RN I feel so much better, I'm going to go home. This RN advises pt she should stay and be further assessed for the chest pain, discussed need for labs and CXR to rule out any cardiac emergency. Pt voices understanding but states she is going to leave, will call her bundle person in the morning or return for any further concerns or return of symptoms.
== END 2024-02-21 20:14 | disposition left against medical advice (07) ==
LOC: ED 20:14
PROVIDERS: PCP Family Medicine
DX: R07.9 Chest pain, unspecified (principal)
CPT/HCPCS: 93005

== ENCOUNTER 2024-03-14 07:01 | Day surgery (SDC) | payer BC, SELFPAY ==
[2024-03-14] VITALS (7 sets, daily range): BP systolic 94–133; BP diastolic 51–63; PULSE 69–88; RESP 16; TEMP 36.4–36.6; O2SAT 96–99; BMI 38.9
[2024-03-14] MEDS: Lactated Ringers 1,000 ML 15 ML IV (07:28)
--- NOTE | 2024-03-14 07:37 | PCM.HP.STD ---
HPI - General General Date of Admission: 07/02/20 Date of Service: 03/14/24 Chief Complaint: Personal history colon polyps HPI Narrative CHASTITY NUNEZ, is a 48 F who presents for surveillance colonoscopy. Her most recent colonoscopy was December 2018 at which point polyps were identified and removed. They were adenomatous. Fortunately benign. She presents via open access today for a surveillance colonoscopy. She denies any acute medical problems. [facility] Medical History (Updated 03/14/24 @ 07:[address] Demarco Paniagua MD) PONV (postoperative nausea and vomiting) High cholesterol BiPAP (biphasic positive airway pressure) dependence Sleep apnea Chronic cough History of heart attack (~2007) Hx of colonic polyp Other acute myringitis, left ear Pelvic pressure in female Wears contact lenses Anxiety Alcohol use Diabetes Fatty liver Blood disorder Back pain Migraine headache Syncope Dietary restriction History of ulceration Former smoker CPAP (continuous positive airway pressure) dependence Shortness of breath on exertion Leg cramps History of edema Hypertension History of echocardiogram Cardiology follow-up encounter Genetic testing of female Vitamin D deficiency Former smoker History of kidney stones Asthma Migraines Stomach ulcer Arthritis Hx of renal calculi Non-STEMI (non-ST elevated myocardial infarction) (07/2008) Myopericarditis Essential (primary) hypertension Obstructive sleep apnea History of deep venous thrombosis cardiomyopathy COPD (chronic obstructive pulmonary disease) Pulmonary embolus (07/2008) Pulmonary nodule Obesity GERD (gastroesophageal reflux disease) Nephrolithiasis Home Medications ?Medication ?Instructions ?Recorded ?Last Taken ?Type sumatriptan succinate 25 mg tablet 50 mg PO .COMPLEX PRN migraine 12/30/23 Unknown History (Imitrex) headache tirzepatide 10 mg/0.5 mL 10 mg subcut QWEEK 12/30/23 Unknown History subcutaneous pen injector (Mounjaro) collagen 11 g PO DAILY 03/08/24 Unknown History magnesium 200 mg tablet 200 mg PO DAILY 03/08/24 Unknown History vitamin D3 250 mcg (10,000 1 cap PO DAILY 03/08/24 Unknown History unit)-vitamin K2 45 mcg capsule Allergy/AdvReac Type Severity Reaction Status Date / Time nickel (justice) Allergy Rash Verified 03/14/24 07:18 Penicillins Allergy Rash Verified 03/14/24 07:18 Family History (Updated 12/30/23 @ 14:37 by Eneida Menon) Mother Diabetes Hypertension Cancer Uterine cancer Pancreatitis Colon polyps Father Diabetes Heart disease Hypertension CVA (cerebral vascular accident) Daughter Hearing loss Grandmother CVA (cerebral vascular accident) Colon cancer Uncle Colon cancer Uncle Colon cancer Other Gout Surgical History (Updated 03/08/24 @ 09:31 by Elvira Romeo) History of esophagogastroduodenoscopy (EGD) Hx of colonoscopy Status post left oophorectomy History of shoulder surgery Hx of tympanostomy tubes History of left heart catheterization (07/2008) Hx of cholecystectomy H/O: hysterectomy Social History Smoking Status: Former smoker quit date: 10/18/12 Tobacco: How many years used: 20 second hand exposure: No alcohol intake: current alcohol intake frequency: 0-2 drinks per day details: social substance use type: does not use caffeine: Yes what type of physical activity do you participate in: none seatbelt use: always do you feel safe at home: Yes additional social history: Patient works at the [employer] Constitutional Constitutional: Reports systems reviewed and no addt'l complaints, except as documented Cardiovascular Cardiovascular: Denies chest pain Respiratory/Chest Respiratory/Chest: Denies shortness of breath at rest Gastrointestinal Gastrointestinal: Denies abdominal pain, change in bowel habits, hematochezia or melena Vital Signs Vital Signs Vital Signs: 03/14/24 07:19 03/14/24 07:19 Temperature 97.5 F L Temperature Source Temporal Pulse Rate 79 Respiratory Rate 16 Respiratory Pattern Normal Blood Pressure 133/63 H Blood Pressure Mean 86 Blood Pressure Source Monitor Blood Pressure Position Semi-Fowlers Blood Pressure Location Left Arm Pulse Ox 96 Oxygen Delivery Method Room Air Weight Weight: 227 lb 1.218 oz Body Mass Index (BMI) 38.9 Physical Exam Const alert, oriented x3 and no apparent distress General Appearance: cooperative and comfortable Eyes General Eye: normal appearance of both eyes Neck General: normal visual inspection Chest inspection of chest normal Resp Effort and Inspection: able to speak in complete sentences and symmetric chest movement Auscultation: clear to auscultation bilaterally Cardio regular rate and regular rhythm GI soft to palpation, non-tender and non-distended Extremity no calf tenderness Neuro oriented x3 Psych thought process normal Assessment & Plan Assessment/Plan (1) Hx of colonic polyp: PLAN: Plan to proceed with a surveillance colonoscopy with possible biopsy or polypectomy as indicated. The patient is aware of the technique, benefit, risk, alternatives. She has had an opportunity to ask and have questions answered. She presents via open access today. We will proceed as noted. Demarco Paniagua M.D., F.A.C.S.
[2024-03-14 07:51] LABS: Bedside Glucose 113 mg/dL (74-106)
--- NOTE | 2024-03-14 08:15 | COLBX_PTH ---
PATIENT: CHASTITY NUNEZ LOC: EN U#:[id number] AGE/SX: 48/F ROOM: RE03/14/[address]: Dr. Demarco Paniagua MD : 1975 BED: DIS: 03/14/2024 SPEC #: [id number] RECD: 03/14/24 09:53 STATUS: LEYLA OMALLEYZackery #: [id number] SHYAM: 03/14/24 08:[address]: Demarco Paniagua DEPT: SURGICAL PATHOLOGY RECD BY: Adrianna Bobby ENTERED: 03/14/24 13:16 SP TYPE: COLON BX OT DR: Selena Langston PA-C Tissues: Descending colon Procedures: Surgery Specimen Level IV HEADER OPERATION: Colonoscopy with biopsy PRE-OP DIAGNOSIS: History of colonic polyp TISSUE SUBMITTED: Descending colon polyp biopsy MICROSCOPIC DIAGNOSIS Descending colon polyp, biopsy: Benign mucosal polyp. See comment. MONA/ 03/15/2024 COMMENT Neither hyperplastic nor adenomatous change is identified. Clinical correlation is suggested. MICROSCOPIC DESCRIPTION Slides are reviewed. GROSS DESCRIPTION Received in fixative is one container labeled with the patient's name and designated Descending colon polyp. The specimen consists of two irregular fragments of light moore soft tissue that in aggregate measure 0.8 x 0.5 x 0.1 cm. The specimen is totally submitted in one cassette. AM/mr 03/14/2024 TC:5 CPT:37953
--- NOTE | 2024-03-14 09:13 | OP.COLON_ITS ---
Patient Name: Leslie De León Procedure Date: 03/14/2024 8:36 AM Date of : 1975 Age: 48 Procedure: Colonoscopy Indications: High risk colon cancer surveillance: Personal history of colonic polyps Providers: Demarco Paniagua MD Referring MD: Selena Langston Medicines: See the Anesthesia note for documentation of the administered medications Patient Profile: Last Colonoscopy: July 2018. Complications: No immediate complications. Procedure: Pre-Anesthesia Assessment: - Prior to the procedure, a History and Physical was performed, and patient medications and allergies were reviewed. The patient's tolerance of previous anesthesia was also reviewed. The risks and benefits of the procedure and the sedation options and risks were discussed with the patient. All questions were answered, and informed consent was obtained. Prior Anticoagulants: The patient has taken no anticoagulant or antiplatelet agents. ASA Grade Assessment: II - A patient with mild systemic disease. After reviewing the risks and benefits, the patient was deemed in satisfactory condition to undergo the procedure. After I obtained informed consent, the scope was passed under direct vision. Throughout the procedure, the patient's blood pressure, pulse, and oxygen saturations were monitored continuously. The colonoscope was introduced through the anus and advanced to the cecum, identified by appendiceal orifice and ileocecal valve. The colonoscopy was performed without difficulty. The patient tolerated the procedure well. The quality of the bowel preparation was good. The ileocecal valve and the appendiceal orifice were photographed. Scope In: 8:50:12 AM Scope Withdrawal Time 0 hours 12 minutes 17 seconds Scope Out: 9:07:57 AM Total Procedure Duration Time 0 hours 17 minutes 45 seconds Findings: Hemorrhoids were found on perianal exam. A 3 mm polyp was found in the distal descending colon. The polyp was sessile. The polyp was removed with a cold biopsy forceps. Resection and retrieval were complete. A few diverticula were found in the sigmoid colon. Impression: - Hemorrhoids found on perianal exam. - One 3 mm polyp in the distal descending colon, removed with a cold biopsy forceps. Resected and retrieved. - Diverticulosis in the sigmoid colon. Recommendation: - Discharge patient to home. - Resume previous diet. - Continue present medications. - Repeat colonoscopy in 5 years for surveillance based on pathology results. - Telephone my office for pathology results in 1 week. Procedure Code(s): --- Professional --- 41713, Colonoscopy, flexible; with biopsy, single or multiple Diagnosis Code(s): --- Professional --- Z86.010, Personal history of colonic polyps K64.9, Unspecified hemorrhoids D12.4, Benign neoplasm of descending colon K57.30, Diverticulosis of large intestine without perforation or abscess without bleeding CPT copyright 2021 [employer] [place] [employer]. All rights reserved. The codes documented in this report are preliminary and upon oil heat technician review may be revised to meet current compliance requirements. Demarco Paniagua MD 03/14/2024 9:12:27 AM This report has been signed electronically. Number of Addenda: 0 Note Initiated On: 03/14/2024 8:36 AM
--- NOTE | 2024-03-14 09:13 | OP.CCLET_ITS ---
03/14/2024 Selena Langston Re : Colonoscopy procedure for Leslie Langston This procedure was performed on Thursday, March 14, 2024. My impressions and recommendations are as follows: Impressions : - Hemorrhoids found on perianal exam. - One 3 mm polyp in the distal descending colon, removed with a cold biopsy forceps. Resected and retrieved. - Diverticulosis in the sigmoid colon. Recommendations : - Discharge patient to home. - Resume previous diet. - Continue present medications. - Repeat colonoscopy in 5 years for surveillance based on pathology results. - Telephone my office for pathology results in 1 week. My findings are described in the full procedure note, which is enclosed. If I can be of further assistance, please feel free to contact me at Doctor phone number(s): Work: . Sincerely, Demarco Paniagua MD 03/14/2024 9:12:27 AM This report has been signed electronically.
== END 2024-03-14 09:52 | disposition home or self-care (01) ==
LOC: EN 07:01 → AC 07:02
PROVIDERS: PCP Family Medicine; Referring Provider Family Medicine; Visit Provider Surgery
PROC: 0DJD8ZZ Inspection of Lower Intestinal Tract, Via Natural or Artificial Opening Endoscopic (ICD-10-PCS; CPT 45378; principal; 2024-03-14 08:10)
DX: Z12.11 Encounter for screening for malignant neoplasm of colon (principal); J44.9 Chronic obstructive pulmonary disease, unspecified; E11.9 Type 2 diabetes mellitus without complications; K57.30 Diverticulosis of large intestine without perforation or abscess without bleeding; K64.9 Unspecified hemorrhoids; E78.00 Pure hypercholesterolemia, unspecified; I10 Essential (primary) hypertension; K63.5 Polyp of colon; I25.2 Old myocardial infarction; G47.33 Obstructive sleep apnea (adult) (pediatric); F41.9 Anxiety disorder, unspecified; Z87.891 Personal history of nicotine dependence; Z86.010 Personal history of colon polyps; Z80.0 Family history of malignant neoplasm of digestive organs; Z86.711 Personal history of pulmonary embolism; Z86.718 Personal history of other venous thrombosis and embolism
CPT/HCPCS: 45380; 82962; 88305; J7120; J2405

== ENCOUNTER → 2024-03-29 | Outpatient (CLI) | payer BC, SELFPAY | END | disposition home or self-care (01) | LOC: LABSPEC 12:17 | PROVIDERS: PCP Family Medicine; Referring Provider Nurse Practitioner Family; Visit Provider Nurse Practitioner Family | DX: R30.0 Dysuria (principal) | CPT/HCPCS: 87086 ==

== ENCOUNTER 2024-04-10 09:03 | Outpatient (CLI) | payer BC, SELFPAY ==
--- NOTE | 2024-04-10 09:05 | US_ITS ---
STUDY: ULTRASOUND BREAST - LEFT REASON FOR EXAM: Female, 48 years old. Left axillary swelling and lump. TECHNIQUE: Axial and longitudinal images of the LEFT breast were performed with a high resolution ultrasound transducer. # OF IMAGES: 52 COMPARISON: Comparison is made with prior sonogram of the left breast dated July 29, 2022. FINDINGS: LEFT Breast: The left axilla was examined with ultrasound. Several lymph nodes are seen. The largest lymph node measures 3.8 cm x 3.8 signed by 1.5 cm. A fatty hilum is seen within it. Biopsy may be considered if not already performed. US/Breast Limited Unilateral IMPRESSION: Enlarged left axillary lymph node as described with a fatty hilum. Biopsy should be considered. ASSESSMENT CATEGORY: BIRADS Category 4: Suspicious - Biopsy Should Be Considered. A letter regarding these results will be sent to the patient by the facility within 30 days. Electronically Signed: Santhosh Morse MD at 15:09 EDT ,
== END 2024-04-10 23:59 | disposition home or self-care (01) ==
PROVIDERS: PCP Family Medicine; Visit Provider Nurse Practitioner Family
DX: N63.20 Unspecified lump in the left breast, unspecified quadrant (principal)
CPT/HCPCS: 76642

== ENCOUNTER 2024-04-24 07:16 | Day surgery (SDC) | payer BC, SELFPAY ==
[2024-04-24] VITALS (9 sets, daily range): BP systolic 122–159; BP diastolic 64–99; PULSE 84–102; RESP 12–18; TEMP 36.8–37.1; O2SAT 93–98; BMI 39.9
--- NOTE | 2024-04-24 | IMM_PTH ---
PATIENT: CHASTITY NUNEZ LOC: [facility] [place] U#:[id number] AGE/SX: 48/F ROOM: RE04/24/[address]: Dr. Reno Zamora MD : 1975 BED: DIS: 04/24/2024 SPEC #: [id number] RECD: 04/25/24 11:23 STATUS: LEYLA REQ #: [id number] SHYAM: 04/24/24 00:[address]: Reno Zamora DEPT: IMMUNOHISTOCHEMISTRY RECD BY: Glenn Nieto ENTERED: 04/25/24 11:24 SP TYPE: IMMUNO OTHR DR: Selena Langston PA-C Tissues: Axillary lymph node, NOS Procedures: BCL-2 (add) BCL-6 (add) CD10 (add) CD20 (add) CD23 (add) CD3 (add) CD43 (add) CD45 (add) CD5 (add) CD79A (add) CK8 (add) CYCLIN (add) KI-67 (add) Pankeratin (initial) PHYSICIAN & [address] [address] SPECIMEN INFORMATION: Tissue Source: Left axillar contents Clinical Info: Lump left breast Specimen Number: [id number] CPT code: [id number] METHODOLOGY: Deparaffinized sections of prefer/formalin-fixed tissue or PAP/DQ stained slides are incubated with monoclonal/polyclonal antibodies/oligonucleotide probes. Localization is made via biotin free immunoperoxidase method. Appropriate controls are performed and reacted as expected. Results on target cell population are indicated in the following table: RESULTS: ANTIBODY / CLONE RESULT AE1-3 (AE1/AE3/PCK26) negative CK8 ([id number]) negative CD3 (PS1) positive CD5 (SP10) positive CD20 (L26) positive CD43 (L60) positive CD45 (RP2/18) positive CD79a (11E3) positive CD10 (56C6) positive (germinal center) CD23 (1B12) negative BCL-2 (bcl-2/100/D5) negative (germinal center) BCL-6 (FQ418E/A8) positive (germinal center) Cyclin D1/BCL-1 (SP4) negative Ki-67 (30-9) positive (reactive pattern) These tests were developed and their performance characteristics determined by [facility]. They may not have been cleared or approved by the U.S. Food and Drug Administration. The FDA has determined that such clearance or approval is not necessary. The above immunohistochemical/dualISH markers are ordered and reviewed by the Pathologist. INTERPRETATION: Left axillary contents, ultrasound guided excisional biopsy: A fatty benign lymph node, with reactive changes. SJ/mr 04/26/2024
--- NOTE | 2024-04-24 | AXNB_PTH ---
PATIENT: CHASTITY NUNEZ LOC: [facility] [place] U#:[id number] AGE/SX: 48/F ROOM: RE04/24/[address]: Dr. Reno Zamora MD : 1975 BED: DIS: 04/24/2024 SPEC #: [id number] RECD: 04/24/24 09:34 STATUS: LEYLA PEGGY #: [id number] SHYAM: 04/24/24 00:[address]: Reno Zamora DEPT: SURGICAL PATHOLOGY RECD BY: Adrianna Bobby ENTERED: 04/24/24 09:54 SP TYPE: AX NODE BX OTHR DR: Selena Langston PA-C Tissues: Axillary lymph node, NOS Procedures: Surgery Specimen Level IV HEADER OPERATION: Ultrasound guided wire localization left axillary lymph node excisional biopsy PRE-OP DIAGNOSIS: Lump left breast TISSUE SUBMITTED: Left axillary contents, fresh MICROSCOPIC DIAGNOSIS Left axillary lymph node, excisional biopsy: An enlarged fatty benign lymph node with reactive changes. Negative for metastatic carcinoma. See comment. /mr 04/25/2024 COMMENT Immediate evaluation by Dr. Stanley: numerous lymphocytes consistent with lymph node tissue noted. Immunohistochemistry ([id number]) supports the above diagnosis. Flow cytometric study from [facility] shows no evidence of a B-cell or T-cell lymphoma. The complete report is viewable in patient EMR. MICROSCOPIC DESCRIPTION Slides are reviewed. GROSS DESCRIPTION Received fresh for lymphoma protocol labeled with the patient's name is a specimen designated Left axillary contents. The specimen consists of two pieces of yellow adipose tissue measuring 5.5 x 5.0 x 2.0cm. Section of the larger piece reveal a large fatty lymph node measuring 5.0cm in greatest dimension. Sections of the smaller piece reveal focally fibrous cut surfaces. A section from the larger lymph node is submitted for flow cytometric study. Two touch imprints are prepared. Chief Deputy sections are submitted in six cassettes as follows: 1-4- larger lymph node, 5 and 6- smaller piece of tissue. / 04/24/2024 TC:5 CPT:63522,03510
--- NOTE | 2024-04-24 07:31 | PCM.PRE.AN2 ---
ASA Classification* ASA Classification ASA Classification: 3 Assessment & Plan Anesthesia* Anesthesia Assessment Anesthesia Assessment: Discussed sedation and/or anesthesia options, risks, benefits, and alternatives with patient/parents/legal guardian/POA. Questions invited. The patient/parents/legal guardian/POA seems to understand and agrees to proceed with anesthesia plan. Reviewed the physical assessment, medical history, allergy history and patient home medications list prior to surgery/procedure/anesthetic and documented any changes. Performed airway and anesthesia risk assessments. Anesthesia Type Anesthesia Type: MAC Anesthesia Focused Assessment* Airway Assessment Mouth opens: >3 cm Mallampati Score: II Focused Labs Anesthesia Preop lab: CBC WBC 7.6 K/mm3 (4.4-11.0) 08/18/22 11:16 RBC 4.66 M/mm3 (4.2-5.4) 08/18/22 11:16 Hgb 14.0 g/dL (12.0-15.0) 08/18/22 11:16 Hct 41.2 % (37-47) 08/18/22 11:16 Plt Count 223 K/mm3 (150-450) 08/18/22 11:16 CHEMISTRY Potassium 3.9 mmol/L (3.5-5.1) 08/18/22 11:16 Sodium 137 mmol/L (136-145) 08/18/22 11:16 Magnesium 2.2 mg/dL (1.6-2.6) 05/30/21 09:14 BUN 12 mg/dL (7-18) 08/18/22 11:16 Creatinine 1.04 mg/dL (0.55-1.02) H 08/18/22 11:16 Glucose [facility] 108 mg/dL (70-110) 12/10/23 13:47 Glucose 117 mg/dL (74-106) H 08/18/22 11:16 POC Glucose 113 mg/dL (74-106) H 03/14/24 07:16 TSH 1.11 uIU/mL (0.358-3.74) 07/01/22 10:45 COAG PT 11.4 SECONDS (11.7-14.9) L 07/18/18 20:40 Urine Test Negative Negative 09/18/16 17:30 Tst Clinic Negative 01/12/23 15:58 Pre-Assessment Diagnosis/Proposed Procedure Planned Operative Procedure(s): LEFT U/S WIRE LOC LEFT AXILLARY LN Anesthesia History Anesthesia History - spring upholsterer: Anesthesia History - spring upholsterer Hx Hospitalization No 04/19/24 08:50 Any Problems With Anesthesia Yes: N,V 04/19/24 08:50 Cholinesterase deficiency No 04/19/24 08:50 You/Your Family Experience No 04/19/24 08:50 fever (hyperthermia) with Relationship Recent Exposure to Contagious No 03/14/24 07:19 Disease Does patient have nerve No 04/19/24 08:50 stimulator Patient instructed to have device shut off --Does patient have Pacemaker or ICD? When Was Last Pacemaker Check QUESTION #4 FULL TEXT: You/Your Family Experience fever (hyperthermia) with Anesthesia Last Oral Intake Last Oral intake: Last Oral Intake NPO since Meds taken in AM with sips of water? Meds patient instructed to take am of surgery PONV PONV - spring upholsterer: PONV - spring upholsterer Female Yes 04/19/24 08:50 HX of Motion Sickness Yes 04/19/24 08:50 HX of N/V After Surgery No 04/19/24 08:50 Non-Smoker Yes 04/19/24 08:50 Duration of Surgery greater Yes 04/19/24 08:50 than 60 minutes Number of Risk Factors 4 04/19/24 08:50 PONV Score Severe Risk 04/19/24 08:50 Height & Weight Height & Weight: Anesthesia: Height & Weight Height 5 ft 4 in 04/18/24 09:22 Respiratory Assessment Respiratory Assessment - spring upholsterer: Respiratory Tract Infection Hx - spring upholsterer Hx Respiratory Tract Infection No 04/19/24 08:50 STOP Sleep Apnea STOP Sleep Apnea - spring upholsterer: STOP Sleep Apnea - spring upholsterer Hx Hypertension Yes: NO MEDS FOR 6 MONTHS 04/19/24 08:50 Hx Sleep Apnea Yes 04/19/24 08:50 CPAP Yes: NONCOMPLIANT 04/19/24 08:50 BIPAP No 04/19/24 08:50 Do you snore loudly (louder than talking or can be heard Do you often feel tired/ fatigued/ sleepy during daytime? Has anyone observed you stop breathing during sleep? STOP Results Positive 04/19/24 08:50 QUESTION #5 FULL TEXT : Do you snore loudly (louder than talking or can be heard through closed doors)? Tobacco Use History Tobacco Use History - spring upholsterer: Tobacco Use History - spring upholsterer Tobacco Use Smoking Status Former smoker 04/19/24 08:50 Hx Tobacco Use No 04/19/24 08:50 Years Smoking Packs Smoked per Day Smoking Cessation Date was Yes - quit smoking within 15 04/19/24 08:50 within the last 15 years years Hx Smoking Cessation Date 10/18/12 04/19/24 08:50 Hx Smoking Cessation No 04/19/24 08:50 Counseling Hematologic Medial History Hematologic Hx - spring upholsterer: Hematologic Medical Hx - it training specialist Hx of Blood Transfusion No 04/19/24 08:50 Hx of Transfusion in last 3 No 04/19/24 08:50 Months Date of Last Transfusion (if within last 3 months) Ever experience any problems No 04/19/24 08:50 with transfusion(s)? Specify any problems Hx of Preganancy in last 3 No 04/19/24 08:50 Months Nurse Filling Out Transfusion DSCHRIBER 04/19/24 08:50 & Questions: Date: 04/19/24 04/19/24 08:50 Time: 08:51 04/19/24 08:50 Patient unable to answer at this time (ie. confused, unrespo /Reproduction History /Reproductive History - spring upholsterer: /Reproductive Hx- spring upholsterer Hx Now No 04/19/24 08:50 Gestational Age (in weeks): EDC: Hx Hx Para Hx Section SAB No 04/19/24 08:50 Active Medications Active Medications: Current Medications Generic Name Dose Route Start Last Admin Trade Name Freq PRN Reason Stop Dose Admin Clindamycin Phosphate 900 mg in 50 mls @ 75 mls/hr 04/24/24 08:55 Cleocin IV 04/24/24 09:34 PREOP ONE Lactated Ringer's 1,000 mls @ 15 mls/hr 04/24/24 07:30 IV .Q48H SEKOU PFSH Medical History CPAP (continuous positive airway pressure) dependence Asthma History of stress test PONV (postoperative nausea and vomiting) High cholesterol History of heart attack (~2007) Hx of colonic polyp Other acute myringitis, left ear Pelvic pressure in female Wears contact lenses Anxiety Alcohol use Blood disorder Back pain Migraine headache History of ulceration History of edema Hypertension History of echocardiogram Cardiology follow-up encounter Genetic testing of female Vitamin D deficiency Former smoker History of kidney stones Migraines Non-STEMI (non-ST elevated myocardial infarction) (07/2008) Myopericarditis Essential (primary) hypertension History of deep venous thrombosis cardiomyopathy Pulmonary embolus (07/2008) Obesity GERD (gastroesophageal reflux disease) Nephrolithiasis Home Medications ?Medication ?Instructions ?Recorded ?Last Taken ?Type sumatriptan succinate 25 mg tablet 50 mg PO .COMPLEX PRN migraine 12/30/23 Unknown History (Imitrex) headache tirzepatide 10 mg/0.5 mL 10 mg subcut WE 12/30/23 04/12/24 History subcutaneous pen injector (Mounjaro) collagen 11 g PO DAILY 03/08/24 Unknown History magnesium 200 mg tablet 200 mg PO DAILY 03/08/24 Unknown History vitamin D3 250 mcg (10,000 1 cap PO DAILY 03/08/24 Unknown History unit)-vitamin K2 45 mcg capsule CATHERINE 8 oz PO DAILY 04/19/24 Unknown History LIONS DILIP 1 tab PO DAILY 04/19/24 04/18/24 History Allergy/AdvReac Type Severity Reaction Status Date / Time nickel (justice) Allergy Rash Verified 04/19/24 08:46 Penicillins Allergy Rash Verified 04/19/24 08:46 Family History Mother Diabetes Hypertension Cancer Uterine cancer Pancreatitis Colon polyps Father Diabetes Heart disease Hypertension CVA (cerebral vascular accident) Daughter Hearing loss Grandmother CVA (cerebral vascular accident) Colon cancer Uncle Colon cancer Uncle Colon cancer Other Gout Surgical History Hx of lithotripsy History of esophagogastroduodenoscopy (EGD) Hx of colonoscopy Status post left oophorectomy History of shoulder surgery Hx of tympanostomy tubes History of left heart catheterization (07/2008) Hx of cholecystectomy H/O: hysterectomy Social History Smoking Status: Former smoker quit date: 10/18/12 Tobacco: How many years used: 20 second hand exposure: No alcohol intake: current alcohol intake frequency: 0-2 drinks per day details: social substance use type: does not use caffeine: Yes what type of physical activity do you participate in: none seatbelt use: always do you feel safe at home: Yes additional social history: Patient works at the [employer] Review of Systems (Anesthesia) ROS Narrative System reviewed and no additional complaints, except as documented.
[2024-04-24] MEDS: Lactated Ringers 1,000 ML 15 ML IV (07:52)
[2024-04-24 08:30] LABS: Bedside Glucose 119 mg/dL (74-106)
--- NOTE | 2024-04-24 08:36 | PCM.HP.BLA ---
History and Physical Date of Admission: 04/24/24 Intake Vital Signs 03/29/2410:04 04/18/2409:22 Height 5 ft 4 in 5 ft 4 in BP 123/82 H Blood Pressure Location Rt brachial Position Sitting Respiration 17 Pulse 84 Pulse Source Monitor Temp 97.2 F L Temp Source Temporal Pulse Oximetry (%) 97 Oxygen Delivery Method room air Intake Visit Reasons: BIRADS 4 Chief Complaint: birads 4 Is patient in pain?: No Allergies nickel (justice) Allergy (Verified 04/18/24 09:23) RashPenicillins Allergy (Verified 04/18/24 09:23) Rash Medications ?Medication ?Instructions ?Recorded ?Confirmed ?Type sumatriptan succinate 25 mg tablet 50 mg PO .COMPLEX PRN migraine 12/30/23 04/18/24 History (Imitrex) headache tirzepatide 10 mg/0.5 mL 10 mg subcut QWEEK 12/30/23 04/18/24 History subcutaneous pen injector (Joey) collagen 11 g PO DAILY 03/08/24 04/18/24 History magnesium 200 mg tablet 200 mg PO DAILY 03/08/24 04/18/24 History vitamin D3 250 mcg (10,000 1 cap PO DAILY 03/08/24 04/18/24 History unit)-vitamin K2 45 mcg capsule PFSH Medical History PONV (postoperative nausea and vomiting) High cholesterol BiPAP (biphasic positive airway pressure) dependence Sleep apnea Chronic cough History of heart attack (~2007) Hx of colonic polyp Other acute myringitis, left ear Pelvic pressure in female Wears contact lenses Anxiety Alcohol use Diabetes Fatty liver Blood disorder Back pain Migraine headache Syncope Dietary restriction History of ulceration Former smoker CPAP (continuous positive airway pressure) dependence Shortness of breath on exertion Leg cramps History of edema Hypertension History of echocardiogram Cardiology follow-up encounter Genetic testing of female Vitamin D deficiency Former smoker History of kidney stones Asthma Migraines Stomach ulcer Arthritis Hx of renal calculi Non-STEMI (non-ST elevated myocardial infarction) (07/2008) Myopericarditis Essential (primary) hypertension Obstructive sleep apnea History of deep venous thrombosis cardiomyopathy COPD (chronic obstructive pulmonary disease) Pulmonary embolus (07/2008) Pulmonary nodule Obesity GERD (gastroesophageal reflux disease) Nephrolithiasis Surgical History History of esophagogastroduodenoscopy (EGD) Hx of colonoscopy Status post left oophorectomy History of shoulder surgery Hx of tympanostomy tubes History of left heart catheterization (07/2008) Hx of cholecystectomy H/O: hysterectomy Family History Mother Diabetes Hypertension Cancer Uterine cancer Pancreatitis Colon polypsFather Diabetes Heart disease Hypertension CVA (cerebral vascular accident)Daughter Hearing lossGrandmother CVA (cerebral vascular accident) Colon cancerUncle Colon cancerUncle Colon cancerOther Gout Social History Smoking Status: Former smoker quit date: 10/18/12 Tobacco: How many years used: 20 second hand exposure: No alcohol intake: current alcohol intake frequency: 0-2 drinks per day details: social substance use type: does not use caffeine: Yes what type of physical activity do you participate in: none seatbelt use: always do you feel safe at home: Yes additional social history: Patient works at the [employer] HPI HPI: Patient is a 48-year-old female with a lump that she can feel in her breast as well as pain in her left axilla. She says the discomfort has been going on for quite some time. She denies nipple discharge. She is not having any pain in the breast. She does say she has night sweats but no weight loss or other lymphoma symptoms. ROS General General: No weight change, appetite, fatigue, colon cancer, breast cancer or weakness HEENT HEENT: No difficulty swallowing, eye injury, eye surgery, swollen glands or hoarseness Endo Endocrine: Yes diabetes mellitus; No thyroid disease, thyroid cancer, Hair loss, heat intolerance or cold intolerance Skin Skin: No rash or changing moles Musc Musculoskeletal: Yes arthritis; No back problems, rheumatoid arthritis, gout or joint pain Cardio Cardiovascular: Yes high blood pressure and heart attack; No murmur, pacemaker, heart disease, atrial fibrillation, heart stent, palpitations, shortness of breat with exertion or chest pain Psych Psychiatric: No depression, anxiety or hearing voices Resp Respiratory: No shortness of breath, Yes sleep apnea, No cough, No COPD, No asthma, No emphysema and No wheezing Gastro Gastrointestinal: No abdominal pain, No nausea or vomiting, No diarrhea, No constipation, No blood in stool, Yes acid reflux, No hemorrhoids, No ulcers, No gallbladder problem and No black,tarry stools Deric Hematologic: No blood thinners, Yes blood disorders, No bleeding, No anemia and Yes blood clots Neuro Neurologic: No system reviewed and no additional complaints, except as documented, No as per HPI, No abnormal gait, No abnormal hearing, No abnormal movements, No abnormal speech, No behavioral changes, No burning sensations, No confusion, No convulsions, No disequilibrium, No dizziness, No localized weakness, No frequent falls, No headache(s), No lack of coordination, No loss of vision, No memory loss, No numbness, No other visual disturbances, No radicular pain, No restless legs, No sensory deficit, No syncope, No tingling, No tremor(s), No weakness and No other Exam Const General: cooperative Orientation: alert and oriented x3 HENMT Head: normal to inspection Neck Neck: normal visual inspection and full ROM Chest Chest palpation & inspection: normal inspection of the chest Resp Effort & Inspection: normal respiratory effort Auscultation: clear to auscultation bilaterally Cardio Rate: regular rate Rhythm: regular rhythm GI Inspection: non-distended Palpation: soft and nontender Skin General: no rashes or lesions noted Neuro General: patient alert and patient oriented x3 Extrem General: full ROM Psych Appearance: grossly normal Mental Status: mental status grossly normal Assessment and Plan Assessment and Plan (1) Axillary swelling: Status: Acute Plan: The patient had ultrasound which showed an enlarged lymph node of the left axilla. This was also present last year on her ultrasound after mammogram. She went to the [facility] and saw an oncologist and they recommended not biopsying it. She had a repeat ultrasound which is still showing a large lymph node in the left axilla. I did find the lump that she is feeling in the left breast and I performed an ultrasound that appears to be small and fatty and benign appearing. I discussed performing a core needle biopsy of the lymph node versus excisional biopsy. The patient was much more apt to have the excisional biopsy so we get more tissue. I discussed the procedure in detail as well as the risks including but not limited to bleeding, infection, nerve injury, seroma formation, need for further surgery. I will perform an ultrasound-guided wire localization in the operating room. Patient understands the risks and is willing proceed. Reno Zamora MD Pager: [facility] [address] [place] [address], [address] [place] [address] Office: I have examined the patient and the H&P has been reviewed. There are no clinical changes since date of exam.
[2024-04-24] MEDS: Clindamycin 900 MG/50 ML BAG 75 MG IV (08:45)
[2024-04-24] MEDS: Bupivacaine Mpf 0.5% 30 ML VIAL (09:00)
--- NOTE | 2024-04-24 09:53 | PCM.POST.ANE ---
Anesthesia: Postop Eval I Current Vital Signs Temperature: 98.8 F Pulse Rate: 101 Blood Pressure: 135/85 Respiratory Rate: 12 Pulse Ox: 95 Oxygen Delivery Method: Room Air Assessment Airway patent: Yes Spontaneous unlabored respirations: Yes Mental status: Calm and Asleep (easily arousable) nausea: No Vomiting: No Anesthesia Complication: No Fluid Hydration Crystalloid volume administer (ml): 900 Total IV fluid infused: 900 Progress Note Anesthesia document: Postop Eval 1 completed: Yes
--- NOTE | 2024-04-24 10:07 | POSTOPAN2_ITS ---
Anesthesia Postop Eval I Sum Postop Eval Completion status Anesthesia document: Postop Eval 1 completed: Yes Anesthesia Postop Eval I Summary Anesthesia Postop Eval I Summary: Anesthesia Postop Eval I: Assessment Summary Airway patent Yes 04/24/24 09:55 PETROLEUM [email or web address] Spontaneous unlabored Yes 04/24/24 09:55 PETROLEUM [email or web address].SCHR respirations Mental status Calm,Asleep - 04/24/24 09:55 PETROLEUM ANALYST.SCHR easily arousable nausea No 04/24/24 09:55 PETROLEUM ANALYST.SCHR Vomiting No 04/24/24 09:55 PETROLEUM ANALYST.SCHR Anesthesia Postop Eval I: Fluid Summary Crystalloid volume administer 900 04/24/24 09:55 PETROLEUM ANALYST.SCHR (ml) Colloids volume administered ( ml) Blood Product volume administered (ml) Total IV fluid infused 900 04/24/24 09:55 PETROLEUM ANALYST.SCHR Anesthesia Postop Eval I: Summary Notes Anesthesia Complication No 04/24/24 09:55 PETROLEUM ANALYST.SCHR Anesthesia Complication Comment: Post-operative progress note Anesthesia: Postop Eval II Evaluation Mental status: Awake and Calm Pain Level: 1 nausea: No Vomiting: No Complications Anesthesia Complication: No
--- NOTE | 2024-04-24 10:07 | PCM.POSTANE2 ---
Anesthesia Postop Eval I Sum Postop Eval Completion status Anesthesia document: Postop Eval 1 completed: Yes Anesthesia Postop Eval I Summary Anesthesia Postop Eval I Summary: Anesthesia Postop Eval I: Assessment Summary Airway patent Yes 04/24/24 09:55 ASSOCIATE ENTERTAINMENT EDITOR.SCHR Spontaneous unlabored Yes 04/24/24 09:55 ASSOCIATE ENTERTAINMENT EDITOR.SCHR respirations Mental status Calm,Asleep - 04/24/24 09:55 ASSOCIATE ENTERTAINMENT EDITOR.SCHR easily arousable nausea No 04/24/24 09:55 ASSOCIATE ENTERTAINMENT EDITOR.SCHR Vomiting No 04/24/24 09:55 ASSOCIATE ENTERTAINMENT EDITOR.SCHR Anesthesia Postop Eval I: Fluid Summary Crystalloid volume administer 900 04/24/24 09:55 ASSOCIATE ENTERTAINMENT EDITOR.SCHR (ml) Colloids volume administered ( ml) Blood Product volume administered (ml) Total IV fluid infused 900 04/24/24 09:55 ASSOCIATE ENTERTAINMENT EDITOR.SCHR Anesthesia Postop Eval I: Summary Notes Anesthesia Complication No 04/24/24 09:55 ASSOCIATE ENTERTAINMENT EDITOR.SCHR Anesthesia Complication Comment: Post-operative progress note Anesthesia: Postop Eval II Evaluation Mental status: Awake and Calm Pain Level: 1 nausea: No Vomiting: No Complications Anesthesia Complication: No
--- NOTE | 2024-04-24 10:43 | PCM.OPRPT ---
Report of Operation Date of Procedure: 04/24/24 Pre-Operative Diagnosis: left axillary lymphadenopathy Post-Operative Diagnosis: Same Surgery/Procedure Performed:: 1. Ultrasound-guided wire localization 2. Left axillary lymph node excisional biopsy Type of Anesthesia: General/Regional Specimen's removed: Left axillary contents Estimated Blood Loss (mL): 10 Description of Procedure: Patient was brought back to the operating room and general anesthesia was induced. The left axilla was inspected with ultrasound and the lymph node was identified. The area of skin was prepped and then the wire was placed into the lymph node under direct ultrasound guidance. Next the axilla was prepped and draped in usual sterile fashion. Incision was marked and injected with local anesthetic. Incision was made the scalpel and deepened to the axillary fascia which was incised. The mass was palpable and was dissected free from its surrounding attachments sharply and using clips. The lymph node was removed and sent for fresh section. The cavity was irrigated and suctioned dry and hemostasis was made obtained using clips. The axillary fascia was closed with interrupted 3-0 Vicryl suture. Subcutaneous tissue was closed with interrupted 3-0 Vicryl's running 4-0 Monocryl. Dermabond was applied. Patient was awoken and taken to PACU in stable condition. Admit VTE Documentation VTE Mechan Device Prophylaxis: SCD's
--- NOTE | 2024-04-24 10:48 | EX.PCM.DISCH ---
Discharge Instructions Diet Discharge Diet: No restrictions Activity Discharge Activity: May Drive (in 2-3 days and when off narcotics) and May Shower (tomorrow) Lifting Restrictions: 15 lbs for 1 week Dressing / Incision Call your doctor if your incision/area has: Continuous Slow Oozing, Sudden Increased Bleeding, Increased Pain/ Swelling, Increased Redness, Foul Smelling Discharge and Swelling at the incision site Call your doctor if you observe: Fever of 101 or Higher Cleanse incision/area with: Soap & Water Follow Up Care Please Follow Up With: Reno Zamora MD When: Please call to schedule 1 week follow up appointment. [phone] Test Results: Test results from this visit will be discussed in further detail at your follow-up appointment, if applicable. Discharge Plan Admission Attending Provider: Reno Zamora Primary Care Provider: Selena Langston Instructions Print Language: Solomon Islander Discharge Orders/Prescriptions Prescriptions: New oxycodone 5 mg Tablet 5 - 10 mg PO Q4H PRN PRN (Reason: Pain Score 4-10) 5 Days Qty: 15 0RF No Action sumatriptan succinate [Imitrex] 25 mg tablet 50 mg PO .COMPLEX PRN (Reason: migraine headache) Rx Instructions: 50 mg orally PRN; Mounjaro 10 mg/0.5 mL pen injector 10 mg subcut WE magnesium 200 mg tablet 200 mg PO DAILY collagen 11 g PO DAILY vitamin D3-vitamin K2 250 mcg (10,000 unit)-45 mcg capsule 1 cap PO DAILY LIONS DILIP 1 tab PO DAILY CATHERINE 8 oz PO DAILY Referrals / Follow Up: Selena Langston PA-C [Primary Care Provider] - Disposition Disposition (needs filled in before D/C Order can be placed): Home, Self Care
== END 2024-04-24 12:18 | disposition home or self-care (01) ==
LOC: SDC 07:18 → AC 07:19
PROVIDERS: PCP Family Medicine; Referring Provider Surgery; Visit Provider Surgery
PROC: (CPT 19083; principal; 2024-04-24 08:40)
DX: R59.0 Localized enlarged lymph nodes (principal); J44.9 Chronic obstructive pulmonary disease, unspecified; E11.9 Type 2 diabetes mellitus without complications; I25.2 Old myocardial infarction; Z87.891 Personal history of nicotine dependence
CPT/HCPCS: 38525; 01610; 82962; 88305; 88341; 88342; A4648; J7120; J2405

== ENCOUNTER 2024-08-10 09:58 | Emergency (ER) | payer BC, SELFPAY ==
[2024-08-10 09:59] VITALS: BP 127/84; PULSE 102; RESP 18; TEMP 37.8; O2SAT 95; BMI 37.8
--- NOTE | 2024-08-10 12:21 | EKG12_ITS ---
Test Reason : FEVER Blood Pressure : / mmHG Vent. Rate : 101 BPM Atrial Rate : 101 BPM P-R Int : 144 ms QRS Dur : 072 ms QT Int : 342 ms P-R-T Axes : 012 050 037 degrees QTc Int : 443 ms Sinus tachycardia Possible Inferior infarct , age undetermined Abnormal ECG Confirmed by HIGINIO ROCHA, RINKU ([id number]), senior editor JACKY RODRIGUEZ ([id number]) on 08/11/2024 9:55:44 AM Referred By: Confirmed By:RINKU SYLVESTER MD
--- NOTE | 2024-08-10 12:22 | EX.ED.DYSGE1 ---
HPI History of Present Illness Chief Complaint: Fever Informant: patient and family Narrative Narrative: 49-year-old female has felt sick for 2 to 3 days. She has had fevers and chills malaise, some mild chest discomfort, some mild headaches off and on, but bodyaches are more significant than any of the other discomfort. She states she hurts all over. Her torso included, chest and back, not necessarily her abdomen, but hurts to move in the put on her bra. She denies any donnell dyspnea and denies having a cough. She has been around her kids who have been sick with cold symptoms recently. She did a COVID test at home that was negative. She states her low back hurts as part of the body aches but she denies any weakness or numbness in her lower extremities or anywhere else for that matter. She denies any urinary symptoms, actually been urinating less than usual since she has been drinking less than usual. [facility] Medical History CPAP (continuous positive airway pressure) dependence Asthma History of stress test PONV (postoperative nausea and vomiting) High cholesterol History of heart attack (~2007) Hx of colonic polyp Other acute myringitis, left ear Pelvic pressure in female Wears contact lenses Anxiety Alcohol use Blood disorder Back pain Migraine headache History of ulceration History of edema Hypertension History of echocardiogram Cardiology follow-up encounter Genetic testing of female Vitamin D deficiency Former smoker History of kidney stones Migraines Non-STEMI (non-ST elevated myocardial infarction) (07/2008) Myopericarditis Essential (primary) hypertension History of deep venous thrombosis cardiomyopathy Pulmonary embolus (07/2008) Obesity GERD (gastroesophageal reflux disease) Nephrolithiasis Home Medications ?Medication ?Instructions ?Recorded ?Last Taken ?Type sumatriptan succinate 25 mg tablet 50 mg PO .COMPLEX PRN migraine 12/30/23 Unknown History (Imitrex) headache tirzepatide 10 mg/0.5 mL 15 mg subcut WE 12/30/23 04/12/24 History subcutaneous pen injector (Mounjaro) collagen 11 g PO DAILY 03/08/24 Unknown History magnesium 200 mg tablet 200 mg PO DAILY 03/08/24 Unknown History vitamin D3 250 mcg (10,000 1 cap PO DAILY 03/08/24 Unknown History unit)-vitamin K2 45 mcg capsule CATHERINE 8 oz PO DAILY 04/19/24 Unknown History JOSIE CHERRY 1 tab PO DAILY 04/19/24 04/18/24 History levofloxacin 750 mg tablet 750 mg PO Q24H #4 tabs 08/10/24 Unknown Rx Allergy/AdvReac Type Severity Reaction Status Date / Time nickel (justice) Allergy Rash Verified 08/10/24 09:59 Penicillins Allergy Rash Verified 08/10/24 09:59 Family History Mother Diabetes Hypertension Cancer Uterine cancer Pancreatitis Colon polyps Father Diabetes Heart disease Hypertension CVA (cerebral vascular accident) Daughter Hearing loss Grandmother CVA (cerebral vascular accident) Colon cancer Uncle Colon cancer Uncle Colon cancer Other Gout Surgical History Status post excisional biopsy Hx of lithotripsy History of esophagogastroduodenoscopy (EGD) Hx of colonoscopy Status post left oophorectomy History of shoulder surgery Hx of tympanostomy tubes History of left heart catheterization (07/2008) Hx of cholecystectomy H/O: hysterectomy Social History Smoking Status: Former smoker quit date: 10/18/12 Tobacco: How many years used: 20 second hand exposure: No alcohol intake: current alcohol intake frequency: 0-2 drinks per day details: social substance use type: does not use caffeine: Yes what type of physical activity do you participate in: none seatbelt use: always do you feel safe at home: Yes additional social history: Patient works at the [employer] ED Constitutional Constitutional ED: Reports chills, fatigue and fever(s) Eyes Eyes: Denies change in vision or diplopia ENT ENT ED: Denies ear pain, rhinorrhea or sore throat Cardiovascular Cardiovascular: Reports chest pain; Denies palpitations Respiratory/Chest Respiratory/Chest: Denies cough or dyspnea Gastrointestinal Gastrointestinal: Denies abdominal pain, diarrhea, nausea or vomiting Genitourinary Genitourinary ED: Denies dysuria or hematuria Musculoskeletal Musculoskeletal: Reports back pain and myalgias; Denies neck pain Integumentary Denies abscess or rash Neurologic Neurologic: Reports headache(s); Denies paresthesias or weakness Psychiatric Psychiatric: Denies anxiety or suicidal thoughts EXAM Physical Exam Const Vital Signs: 08/10/24 09:59 08/10/24 11:05 08/10/24 13:59 Temperature 100.1 F H 99 F Temperature Source Oral Oral Pulse Rate 102 H 65 Respiratory Rate 18 18 Respiratory Effort Normal Respiratory Pattern Normal Blood Pressure 127/84 H 120/82 H Blood Pressure Mean 98 94 Pulse Ox 95 99 Oxygen Delivery Method Room Air Room Air Positive well nourished and well developed Constitutional Narrative: Well-appearing General Appearance ED: well developed and NAD HEENT Reports moist mucous membranes and oropharynx normal normocephalic and atraumatic Eyes PERRL and EOMs intact bilaterally Neck full ROM, no lymphadenopathy and supple Resp normal respiratory effort and clear to auscultation bilaterally Cardio regular rate, regular rhythm and no murmurs GI non-tender and non-distended Auscultation: normoactive bowel sounds Palpation: soft Back/Spine no CVA tenderness General Back: other FROM Extremity normal to inspection General Extremety ED: Negative for edema, pulses abnormal or tenderness General Extremity: Negative for edema or pulses abnormal Neuro oriented x3, CN's II-XII intact bilaterally and no sensory deficits noted Sensorium / Orientation: awake and alert Motor Exam: strength 5/5 throughout Psych mental status grossly normal Skin no rashes or lesions noted and no wounds MDM MDM MDM Narrative Medical decision making narrative: 16 years ago or so when patient was she had an [facility] and a PE. She has no problems with regards to cardiopulmonary issues since then, but given her mild chest discomfort I am obtaining an EKG and troponin and blood work to rule out myocarditis, two-view chest x-ray to evaluate for pneumonia, and a COVID/influenza/RSV swab primarily to evaluate for influenza. In the meantime she is given Tylenol and some IV Toradol for her symptoms. Will labs are unremarkable including troponin, her EKG is unremarkable, arguing against myocarditis, but her chest x-ray 2 view shows a right middle lobe infiltrate, as confirmed by radiology. This is new compared with her prior chest x-ray. COVID/influenza/RSV swab is negative. She is feeling a little better after the medications and her temperature is down. She is oxygenating well and breathing well. Outpatient treatment appropriate. Starting her on Levaquin since she is penicillin allergic, I will give her a prescription for the rest outpatient follow-up advised we discussed reasons to return. Lab Data Attestation: I reviewed the patient's lab results. Labs: Laboratory Results - last 24 hr 08/10/24 12:31 WBC 6.7 RBC 4.50 Hgb 13.6 Hct 39.4 MCV 87.6 MCH 30.2 MCHC 34.5 RDW Std Deviation 37.5 RDW Coeff of Paz 11.6 Plt Count 158 MPV 10.7 Immature Gran % (Auto) 0.300 Neut % (Auto) 76.7 H Lymph % (Auto) 13.0 L [place] % (Auto) 7.8 Eos % (Auto) 1.5 Baso % (Auto) 0.7 Absolute Neuts (auto) 5.1 Absolute Lymphs (auto) 0.87 Nucleated RBC % 0 Sodium 133 L Potassium 4.0 Chloride 103 Carbon Dioxide 26.0 Anion Gap 4 L BUN 13 Creatinine 0.92 Estim Creat Clear Calc 86.90 Est GFR (MDRD) Af Amer 84 Est GFR (MDRD) Non-Af 70 BUN/Creatinine Ratio 14.2 Glucose 98 Calcium 9.1 Troponin I High Sens < 3 L Radiography Diagnostic Testing: Clinical Impression(s) from Imaging Studies Chest X-Ray 08/10/24 12:42 IMPRESSION: 1. Moderate pneumonic consolidation is present in the right midlung field and hilar region. The remaining bilateral lung layton are clear. Electronically Signed: Robert Mayorga MD at 13:18 EDT Reading Location ID and State: [address] [place] [address] , Service support , Rhythm Strip Rhythm Strip: Sinus Rhythm Rate: 100 Ectopy: None EKG Initial EKG: Attestation: I personally reviewed and interpreted this EKG as follows: Interpretation: Sinus Rhythm and No Acute Injury Pattern Discharge Plan Triage Chief Complaint: Fever ED Provider: Isaac Pride Dx/Rx/DC Orders Clinical Impression: Pneumonia of right middle lobe due to infectious organism Instructions: ED Pneumonia (Adult) Prescriptions: New levofloxacin 750 mg tablet 750 mg PO Q24H Qty: 4 0RF No Action sumatriptan succinate [Imitrex] 25 mg tablet 50 mg PO .COMPLEX PRN (Reason: migraine headache) Rx Instructions: 50 mg orally PRN; Mounjaro 10 mg/0.5 mL pen injector 15 mg subcut WE magnesium 200 mg tablet 200 mg PO DAILY collagen 11 g PO DAILY vitamin D3-vitamin K2 250 mcg (10,000 unit)-45 mcg capsule 1 cap PO DAILY LIONS DILIP 1 tab PO DAILY CATHERINE 8 oz PO DAILY Primary Care Provider: Selena Langston Referrals: Selena Langston, PA-C [Primary Care Provider] - 3-5 Days Print Language: Lao Disposition Disposition: Home, Self Care
[2024-08-10] MEDS: Ketorolac 30 MG/ML Syringe IV (12:34)
[2024-08-10] MEDS: Acetaminophen 500 MG Tablet 1000 MG PO (12:34)
[2024-08-10 12:36] LABS: Absolute Lymphocyte Count 0.87 X10^3/uL (0.83-4.51); Absolute Neutrophil Count 5.1 X10^3/uL (2.0-7.7); Basophil# 0.05 X10^3/uL; Basophil% 0.7 % (0-1); Eosinophils% 1.5 % (0-5); Hematocrit 39.4 % (37-47); Hemoglobin 13.6 g/dL (12.0-15.0); Lymphocyte # 0.87 X10^3/ul (0.83-4.51); Mean Corp Hgb Conc 34.5 g/dL (32-36); Mean Corpuscular Hgb 30.2 pg (27.0-32.0); Mean Corpuscular Volume 87.6 fL (81-99); Mean Platelet Vol. 10.7 fl (6.2-12.0); Monocyte# 0.52 X10^3/uL; Monocyte% 7.8 % (0-10); NRBC Flagged by Analyzer 0 % (0-5); Neutrophil # 5.14 X10^3/uL (2.7-7.7); Neutrophil % 76.7 % (47-70); Platelet Count 158 K/mm3 (150-450); RBC Distribution Width CV 11.6 % (11.6-14.6); RBC Distribution Width SD 37.5 fl (35.1-43.9); White Blood Count 6.7 K/mm3 (4.4-11.0)
--- NOTE | 2024-08-10 12:42 | RAD_ITS ---
STUDY: X-RAY CHEST REASON FOR EXAM: Female, 49 years old. chest pain fever TECHNIQUE: PA and lateral views of the chest. COMPARISON: October 02, 2021 FINDINGS: Moderate pneumonic consolidation is present in the right midlung field and hilar region. The remaining bilateral lung layton are clear. Surgical clips are present in the left axillary region. The lungs are clear and expanded. There is no demonstrated pleural abnormality. Normal size heart. Normal mediastinum and jessi. Normal visualized pulmonary arteries. There is atherosclerotic calcification of the aortic arch with tortuosity. There are diffuse degenerative changes of the visualized thoracic spine. Normal visualized ribs, clavicles, and shoulders. There is no demonstrated abnormality of the visualized soft tissue structures of the upper abdomen. RAD/Chest PA and Lateral IMPRESSION: 1. Moderate pneumonic consolidation is present in the right midlung field and hilar region. The remaining bilateral lung layton are clear. Electronically Signed: Robert Mayorga MD at 13:18 EDT ,
--- OUTSIDE RECORDS SUMMARY | 2024-08-10 13:26 | XMS RPT_ITS | CCD ---
Author Organization [facility] Care Team Providers Care Member Services Representative Name Role Phone Sandie Max LPN Unavailable Unavaila ble Sandie Holman Unavailable Unavailable Sandie Holman Unavailable Unavailable Han Shaikh DO Unavailable Maurice ORLANDO, Ynes A Unavailable Unavailab Angelica Mohan MD Unavailable Maurice ORLANDO Ynes A Unavailable Unavailab drew Richards LPN, Ynes A Unavailable Unavailab Horace Petit MD Primary Care Provider BRIAN BEARDEN Attending Unavailable BRIAN BEARDEN Referring Unavailable CEBUSushant, HORACE Primary Care Unavailable BRIAN BEARDEN Attending Unavailable SELF, SELF Referring Unavailable HORACE PANIAGUA Primary Care Unavailable BRIAN BEARDEN Referring Unavailable CEBUL, HORACE Primary Care Unavailable BRIAN BEARDEN Attending Unavailable HILLS, AMARIS Admitting Unavailable HILLS, AMARIS Attending Unavailable MIDLAND, AMARIS Primary Care Unavailable HILLS, AMARIS Consulting Unavailable PROVIDER, UNKNOWN Consulting Unavailable HILLS, AMARIS Admitting Unavailable HILLS, AMARIS Attending Unavailable HILLS, AMARIS Primary Care Unavailable HILLS, AMARIS Consulting Unavailable PROVIDER, UNKNOWN Consulting Unavailable HILLS, AMARIS Admitting Unavailable HILLS, AMARIS Attending Unavailable HILLS, AMARIS Primary Care Unavailable HILLS, AMARIS Consulting Unavailable PROVIDER, UNKNOWN Consulting Unavailable HILLS, AMRAIS Admitting Unavailable HILLS, AMARIS Attending Unavailable HILLS, AMARIS Primary Care Unavailable HILLS, AMARIS Consulting Unavailable PROVIDER, UNKNOWN Consulting Unavailable Siva BOURNE MD, Frank A Primary Care Provider Pattie vailable Allergies Allergy Classification Reported Allergen(s) Allergy Type Date of Onset Reaction(s) Facility (6 sources) penicillin g Drug Allergy 7 Rash [facility] Work Phone: (3 sources) Penicillins Propensity to adverse reactions to drug 5 Hives [facility] (1 source) Penicillins Drug allergy (disorder) [facility] Repository (1 source) traMADol Drug Allergy [facility] Repository (1 source) meloxicam Drug Allergy 9 GI Upset [facility] (1 source) traMADol Drug Allergy 8 Vomiting [facility] Medications Current Medications Medication Drug Class(es) Dates Sig (Normalized) Sig (Original) [id number] 200 actuat albuterol 0.09 mg/actuat metered dose inhaler (8 sources) beta2-Adrenergic Agonist Start: 11-27-2020 take 2 puff(s) by inhalation every four hours as needed albuterol HFA (PROAIR HFA) 90 mcg/actuation inhaler Indications: Chronic obstructive pulmonary disease, unspecified COPD type (HCC) Inhale 2 Puffs as instructed every 4 hours as needed. 8 g 2 11/27/2020 Active Start: 03-17-2017 take 2 spray(s) by i nhalation every four hours PROVENTIL HFA 108 (90 Base) MCG/ACT AERS Inh two sprays every 4 hrs ALBUTEROL SULFATE [id number] Sandie L York Start: 03-17-2017 take 2 spray(s) by i nhalation every four hours PROVENTIL HFA 108 (90 Base) MCG/ACT AERS Inh two sprays every 4 hrs ALBUTEROL SULFATE [id number] Sandie L York 24 hr buPROPion hydrochloride 300 mg extended release oral tablet (2 sources) Aminoketone Start: 07-20-2022 buPROPion 300 MG tablet XL cholecalciferol 0.125 mg oral capsule (3 sources) Vitamin D Start: 11-27-2020 take 1 capsule by mouth once daily Cholecalciferol, Vitamin D3, 125 mcg (5,000 unit) cap Indications: Vitamin D deficiency Take 1 capsule by mouth once daily. 30 capsule 11 11/27/2020 Active take 1 tablet by mouth once karen y cholecalciferol 10 MCG (400 UNIT) tablet Take 400 Units by mouth daily. 0 Active 0.5 ml dulaglutide 3 mg/ml auto-injector (2 sources) GLP-1 Receptor Agonist Start: 08-06-2022 Trulicity 1.5 MG/0.5 ML Solution Pen-injector injection ferrous fumarate 18 mg oral tablet (2 sources) Ferrous Fumarate (Iron) 18 MG Tab CR Take by mouth. 0 Active flash glucose sensor (FREESTYLE AYESHA 14 DAY SENSOR) kit (1 source) Start: 06-25-2020 flash glucose sensor (FREESTYLE AYESHA 14 DAY SENSOR) kit Indications: Hyperglycemia 1 Each as directed. Apply new sensor every 14 days.1 application as directed. Apply new sensor every 14 days. 2 Each 06/25/2020 Active hydroCHLOROthiazide 25 mg oral tablet (10 sources) Thiazide Diuretic Start: 11-27-2020 hydroCHLOROthiazide 25 MG tablet Start: 03-24-2017 HYDROCHLOROTHI AZIDE 25 MG TABS One tab once daily HYDROCHLOROTHIAZIDE [id number] Sandie Holman metFORMIN hydrochloride 500 mg oral tablet (1 source) Biguanide Start: 11-27-2020 take 1 tablet by mouth twice daily at mealtime metFORMIN (GLUCOPHAGE) 500 mg tablet Indications: Controlled type 2 diabetes mellitus without complication, without long-term current use of insulin (HCC) Take 1 tablet by mouth twice daily with meals. . 60 tablet 11 11/27/2020 Active omeprazole 40 mg delayed release oral capsule (8 sources) Proton Pump Inhibitor Start: 11-27-2020 take 1 capsule by mouth once daily omeprazole (PRILOSEC) 40 mg capsule Take 1 capsule by mouth once daily. 90 capsule 3 11/27/2020 Active Start: 03-24-2017 PRILOSEC 20 MG CPDR One cap daily before breakfast. 30 min before meal OMEPRAZOLE [id number] Sandie Holman pantoprazole 40 mg delayed release oral tablet (2 sources) Proton Pump Inhibitor Start: 08-06-2022 pantopraz[address] tablet sertraline 25 mg oral tablet (1 source) Serotonin Reuptake Inhibitor Start: 11-27-2020 take 1 tablet by mouth once daily sertraline (ZOLOFT) 25 mg tablet Indications: Insomnia due to anxiety and fear Take 1 tablet by mouth once daily. 30 tablet 11 11/27/2020 Active SUMAtriptan 50 mg oral tablet (14 sources) Serotonin-1b and Serotonin-1d Receptor Agonist Start: 11-27-2020 SUMAtriptan (IMITREX) 50 mg tablet Indications: Migraine with aura and without status migrainosus, not intractable 50mg every 2 hrs as needed for migraine; max 4/day, 9/mo. 9 tablet 11 11/27/2020 Active Start: 03-24-2017 End: 03-30-2017 IMITREX 50 MG TABS One tab e very 2 hrs as needed for migraine; max 4/day, 9/mo SUMATRIPTAN SUCCINATE [id number] Ynes Richards LPN temazepam 15 mg oral capsule (1 source) Benzodiazepine Start: 12-04-2020 take 1 capsule by mouth every 30 days at bedtime as needed temazepam (RESTORIL) 15 mg Indications: Insomnia due to anxiety and fear Take 1 capsule by mouth at bedtime as needed (insomnia) for up to 30 days. 30 capsule 12/04/2020 Active vitamin b12 0.1 mg oral tablet (2 sources) Vitamin B12 take 1 tablet by mouth once daily cyanocobalamin 100 MCG tablet Take 100 mcg by mouth daily. 0 Active Completed/Discontinued Medications Medication Drug Class(es) Dates Sig (Normalized) Sig (Original) acetaminophen 325 mg / HYDROcodone bitartrate 5 mg oral tablet (13 sources) Opioid Agonist Start: 03-10-2017 End: 03-30-2017 HYDROCODONE-ACETAM INOPHEN 5-325 MG TABS One tab every 6 hrs as needed for pain HYDROCODONE-ACETAM INOPHEN [id number] Sandie Holman citalopram 20 mg oral tablet (7 sources) Serotonin Reuptake Inhibitor Start: 03-24-2017 CELEXA 20 MG TABS One tab once daily CITALOPRAM HYDROBROMIDE [id number] Sandie Holman fluticasone propionate 0.05 mg/actuat metered dose nasal spray (13 sources) Corticosteroid Start: 03-24-2017 End: 03-30-2017 take 2 spray(s) nasal route once daily FLONASE 50 MCG/ACT SUSP Two sprays in each nostril once daily FLUTICASONE PROPIONATE [id number] Sandie Holman metroNIDAZOLE 0.0075 mg/mg vaginal gel (13 sources) Nitroimidazole Antimicrobial Start: 03-24-2017 End: 03-30-2017 METROGEL-VAGINAL 0.75 % GEL Twice weekly vaginally x 6 months after initial course of flagyl METRONIDAZOLE [id number] Sandie Holman osmotic 24 hr NIFEdipine 30 mg extended release oral tablet (13 sources) Dihydropyridine Calcium Channel Carl Start: 03-24-2017 End: 03-30-2017 PROCARDIA XL 30 MG TO20O-FSP One tab once daily NIFEDIPINE [id number] Sandie Holman promethazine hydrochloride 12.5 mg oral tablet (13 sources) Phenothiazine Start: 03-24-2017 End: 03-30-2017 PROMETHAZINE HCL 12.5 MG TABS One tab every 6 hrs as needed PROMETHAZINE HCL [id number] Ynes Richards LPN Problems Active Problems Problem Classification Problem Date Documented Da te Episodic/Chronic Asthma (2 sources) Mild intermittent asthma; Translations: [Mild intermittent asthma, uncomplicated] Onset: 11-02-2019 Resolved: 03-28-2014 11-02-2019 Chronic Chronic obstructive pulmonary disease and bronchiectasis (1 source) Chronic obstructive lung disease; Translations: [Chronic obstructive pulmonary disease, unspecified] Onset: 11-02-2019 11-02-2019 Chronic Coagulation and hemorrhagic disorders (1 source) Protein S deficiency disease; Translations: [Other primary thrombophilia] Onset: 11-02-2019 11-02-2019 Chronic Diabetes mellitus with complications (2 sources) Type 2 diabetes mellitus with hyperglycemia; Translations: [Type 2 diabetes mellitus with hyperglycemia] Onset: 08-30-2023 Chronic Diabetes mellitus without complication (1 source) Type 2 diabetes mellitus without complication; Translations: [Type 2 diabetes mellitus without complications] Onset: 07-27-2019 07-27-2019 Chronic Disorders of lipid metabolism (2 sources) Mixed hyperlipidemia; Translations: [Hyperlipidemia] Onset: 07-27-2019 07-27-2019 Chronic Headache; including migraine (1 source) Migraine with aura; Translations: [Migraine with aura, not intractable, without status migrainosus] Onset: 01-09-2016 01-09-2016 Chronic Nonmalignant breast conditions (9 sources) Swelling of breast; Translations: [Unspecified lump in unspecified breast] Onset: 08-06-2022 Episodic Other connective tissue disease (1 source) Localized swelling of left upper limb; Translations: [Other specified soft tissue disorders] Episodic Other connective tissue disease (2 sources) Other specified soft tissue disorders; Translations: [Other specified soft tissue disorders] Onset: 08-06-2022 Episodic Other connective tissue disease (1 source) Pain in right hand; Translations: [Pain in right hand] 01-15-2021 Episodic Other nutritional; endocrine; and metabolic disorders (6 sources) Obesity; Translations: [Obesity, unspecified] Onset: 03-30-2017 03-30-2017 Chronic Other nutritional; endocrine; and metabolic disorders (1 source) Morbid obesity; Translations: [Morbid (severe) obesity due to excess calories] Onset: 03-24-2017 03-24-2017 Chronic Residual codes; unclassified (6 sources) Breathing-related sleep disorder; Translations: [Sleep apnea, unspecified] Onset: 03-30-2017 03-30-2017 Chronic Residual codes; unclassified (1 source) Obstructive sleep apnea syndrome; Translations: [Obstructive sleep apnea (adult) (pediatric)] Onset: 11-02-2019 11-02-2019 Chronic Substance-related disorders (6 sources) Tobacco dependence [...] Classification Problem Date Documented Da te Episodic/Chronic Abdominal pain (1 source) Chronic pelvic pain of female; Translations: [Pelvic and perineal pain] Onset: 09-04-2016 09-04-2016 Episodic Biliary tract disease (1 source) Biliary dyskinesia; Translations: [Other specified diseases of gallbladder] Onset: 10-21-2011 Resolved: 03-28-2014 03-28-2014 Episodic Calculus of urinary tract (1 source) Kidney stone; Translations: [Calculus of kidney] Onset: 09-04-2005 Resolved: 03-28-2014 03-28-2014 Episodic Fluid and electrolyte disorders (1 source) Hypokalemia; Translations: [Hypokalemia] Onset: 07-17-2008 Resolved: 03-28-2014 03-28-2014 Episodic Genitourinary symptoms and ill-defined conditions (1 source) Dysuria; Translations: [Dysuria] Onset: 08-30-2023 Episodic Malaise and fatigue (1 source) Other fatigue; Translations: [Other fatigue] Onset: 08-30-2023 Episodic Mood disorders (2 sources) Mood disorders Onset: 08-12-2022 08-12-2022 Other aftercare (1 source) 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; Translations: [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] Onset: 08-30-2023 Episodic Other connective tissue disease (1 source) Impingement syndrome of right shoulder region; Translations: [Impingement syndrome of right shoulder] Onset: 06-15-2019 06-15-2019 Episodic Other lower respiratory disease (7 sources) Solitary nodule of lung; Translations: [Solitary pulmonary nodule] Onset: 03-24-2017 Resolved: 11-02-2019 03-30-2017 Episodic Other screening for suspected conditions (not mental disorders or infectious disease) (6 sources) No current problems or disability; Translations: [Abnormal findings on diagnostic imaging of breast] Onset: 08-06-2022 03-25-2017 Episodic Other skin disorders (1 source) Hidradenitis; Translations: [Hidradenitis suppurativa] Onset: 02-01-2007 Resolved: 11-02-2019 11-02-2019 Episodic Dariana-; endo-; and myocarditis; cardiomyopathy (except that caused by tuberculosis or sexually transmitted disease) (2 sources) Acute myopericarditis; Translations: [Acute pericarditis, unspecified] Onset: 10-18-2011 Resolved: 03-28-2014 09-28-2016 Episodic Pulmonary heart disease (1 source) H/O: pulmonary embolus; Translations: [Personal history of pulmonary embolism] Onset: 11-02-2019 11-02-2019 Episodic Residual codes; unclassified (1 source) Flushing; Translations: [Flushing] Onset: 03-24-2017 03-24-2017 Episodic Sprains and strains (1 source) Strain of neck muscle; Translations: [Strain of muscle, fascia and tendon at neck level, initial encounter] Onset: 06-15-2019 Resolved: 11-02-2019 11-02-2019 Episodic Results Test Name Value Interpretation Reference Range Facility URINE CULTURE [CCL]on 2022 Bacteria identified Cx Nom (U) URCUL See Results Below See Below CULTURE, URINE NORMAL UROGENITAL ALEX 50,000-<100,000 CFU/ml Normal urogenital alex SOURCE: URINE [address] [place] [address] Jose Meza III, M.D. [id number] SEND TO IC NO Normal [facility] Comment on above: Performed By: #### 2 [id number] #### [address] [address] T3, FREE [CCL]on 08-31-2023 Free T3 [Mass/Vol] 2.9 pg/mL Normal 2.3-4.1 [facility] Comment on above: Result Comment: [facility] [address] [place], [place] [id number] Jose Meza III, M.D. [id number] Performed By: #### 2 08774 #### [facility],[address] [place] [address] 16382 THYROGLOBULIN AB [CCL]on THYROGLOBULIN AB [CCL] Normal [facility] Comment on above: Result Comment: _THY ROGLOBULIN AB [CCL]_ SEE SCANNED REPORT Performed By: #### 2 83130 #### [facility],[address] [place] [address] Bacteria Ur Culton 3 Bacteria identified Cx Nom (U) ORGANISM ID: 1 50,000-<100,000 CFU/ml Normal urogenital alex Normal [facility] Comment on above: Performed By: #### 6 30-4 #### [facility] CLIA [id number] [address] [place] [address] [place] CBC + DIFFon 08-30-2023 Baso # 0.00 x10EE3/UL Normal 0.00 - 0.10 [facility] Comment on above: Performed By: #### 2 44742 #### [facility],[address] [place] [address]1103 Basophils/100 WBC (Bld) 0.4 % Normal 0.0 - 2.0 [facility] Comment on above: Performed By: #### 2 60558 #### [facility],[address] [place] [address]84 CBC + DIFF Normal [facility] Comment on above: Result Comment: CBC- COMPLETE BLOOD COUNT Performed By: #### 2 73969 #### [facility],[address] [place] [address]195 EO # 0.10 x10EE3/UL Normal 0.00 - 0.50 [facility] Comment on above: Performed By: #### 2 81842 #### [facility],[address] [place] [address] 21062 Eosinophils/100 WBC (Bld) 1.5 % Normal 0.0 - 7.0 [facility] Comment on above: Performed By: #### 2 42635 #### [facility],[address] [place] [address] 19841 Erythrocyte distribution width (RBC) [Ratio] 13.3 % Normal 12.0 - 15.6 [facility] Comment on above: Performed By: #### 2 95400 #### [facility],[address] [place] [address] 74689 Hematocrit (Bld) [Volume fraction] 40.7 % Normal 34.0 - 46.0 [facility] Comment on above: Performed By: #### 2 07675 #### [facility],[address] [place] [address] 24468 Hemoglobin (Bld) [Mass/Vol] 13.7 g/dL Normal 12.0 - 16.0 [facility] Comment on above: Performed By: #### 2 38695 #### [facility],[address] [place] [address] Lymph # 1.60 x10EE3/UL Normal 0.80 - 2.80 [facility] Comment on above: Performed By: #### 2 52758 #### [facility],[address] [place] [address] Lymphocytes/100 WBC (Bld) 22.2 % Normal 20.0 - 45.0 [facility] Comment on above: Performed By: #### 2 88408 #### [facility],[address] [place] [address] MANUAL DIFF N/A Normal [facility] Comment on above: Performed By: #### 2 21641 #### [facility],[address] [place] [address] MCH (RBC) [Entitic mass] 30 pg Normal 27 - 33 [facility] Comment on above: Performed By: #### 2 67695 #### [facility],[address] [place] [address] MCHC 34 X10 3 Normal 32 - 36 [facility] Comment on above: Performed By: #### 2 30808 #### [address] [address] MCV (RBC) [Entitic vol] 89 fL Normal 80 - 99 [facility] Comment on above: Performed By: #### 2 24168 #### [address] [place] [address] [place] # 0.40 x10EE3/UL Normal 0.20 - 1.00 [facility] Comment on above: Performed By: #### 2 08591 #### [address] [place] [address] MONOS % 5.0 % Normal 0.0 - 10.0 [facility] Comment on above: Performed By: #### 2 04895 #### [facility],[address] [place] [address] Morphology Dave (Bld) [Interp] N/A Normal [facility] Comment on above: Result Comment: {CD] Performed By: #### 2 37600 #### [facility],[address] [place] [address] Neut # 5.20 x10EE3/UL Normal 1.50 - 7.10 [facility] Comment on above: Performed By: #### 2 18522 #### [facility],[address] [place] [address] Neutrophils/100 WBC (Bld) 70.9 % Normal 46.0 - 76.0 [facility] Comment on above: Performed By: #### 2 33331 #### [facility],[address] [place] [address] PLATELET 209 x10EE3/UL Normal 150 - 450 [facility] Comment on above: Performed By: #### 2 75749 #### [facility],[address] [place] [address] Platelet mean volume (Bld) [Entitic vol] 9.4 fL Normal 6.6 - 10.5 [facility] Comment on above: Result Comment: AUTO MATED DIFFERENTIAL Performed By: #### 2 76098 #### [facility],[address] [place] [address] RBC 4.58 x 10EE6/UL Normal 4.10 - 5.30 [facility] Comment on above: Performed By: #### 2 12601 #### [facility],[address] [place] [address] WBC 7.3 x 10EE3/UL Normal 4.5 - 10.8 [facility] Comment on above: Performed By: #### 2 32736 #### [facility],[address] [place] [address] CMP with eGFRon 08-30-2023 AGE 48 years Normal [facility] Comment on above: Performed By: #### 2 99796 #### [facility],[address] [place] [address] 46345 Albumin [Mass/Vol] 3.2 g/dL Low 3.4 - 5.0 [facility] Comment on above: Performed By: #### 2 30226 #### [facility],[address] [place], [place] [id number] Albumin/Globulin [Mass ratio] 0.9 {ratio} Normal 0.9 - 1.6 [facility] Comment on above: Performed By: #### 2 35103 #### [facility],[address] [place] [address] 06149 ALK PHOS 55 U/L Normal 46 - 116 [facility] Comment on above: Performed By: #### 2 15562 #### [facility],[address] [place] [address] 98742 ALT [Catalytic activity/Vol] 25 U/L Normal 14 - 59 [facility] Comment on above: Performed By: #### 2 43006 #### [facility],[address] [place] [address]7023 Anion gap [Moles/Vol] 13 mmol/L Normal 10 - 20 [facility] Comment on above: Performed By: #### 2 62072 #### [facility],[address] [place] [address] 17558 AST [Catalytic activity/Vol] 13 U/L Normal 13 - 39 [facility] Comment on above: Performed By: #### 2 36295 #### [facility],[address] [place] [address] 82899 B/C RATIO 14 ratio Normal 0 - 30 [facility] Comment on above: Performed By: #### 2 57127 #### [facility],[address] [place] [address] 80354 Bilirubin [Mass/Vol] 0.5 mg/dL Normal 0.2 - 1.0 [facility] Comment on above: Performed By: #### 2 14500 #### [facility],[address] [place] [address] 96925 Calcium [Mass/Vol] 8.6 mg/dL Normal 8.5 - 10.1 [facility] Comment on above: Performed By: #### 2 02560 #### [facility],[address] [place] [address] 97851 Chloride [Moles/Vol] 103 mmol/L Normal 98 - 107 [facility] Comment on above: Performed By: #### 2 75854 #### [facility],[address] [place] [address]4823 CMP with eGFR Normal [facility] Comment on above: Result Comment: COMP REHENSIVE METABOLIC PANEL Performed By: #### 2 10514 #### [facility],[address] [place] [address] 76698 CO2 [Moles/Vol] 24.6 mmol/L Normal 21.0 - 32.0 [facility] Comment on above: Performed By: #### 2 19557 #### [facility],[address] [place] [address] 55535 Creatinine [Mass/Vol] 0.86 mg/dL Normal 0.55 - 1.02 [facility] Comment on above: Performed By: #### 2 55419 #### [facility],[address] [place] [address] 57007 GFR/1.73 sq M.predicted among non-blacks MDRD (S/P/Bld) [Vol rate/Area] mL/min/{1.73_m2} Normal 60 - 999 [facility] Comment on above: Performed By: #### 2 50707 #### [facility],[address] [place] [address] Result Comment: ACCO RDING TO THE NATIONAL KIDNEY DISEASE EDUCATION PROGRAM(NKDE), A NORMAL eGFR IS A VALUE GREATER THAN OR EQUAL TO 60 ML/MIN/1.73 SQ METERS. CHRONIC KIDNEY DISEASE: <60mL/MIN/1.73 SQ METERS KIDNEY FAILURE: <15mL/MIN/1.73 SQ METERS THIS TEST SHOULD ONLY BE USED FOR PATIENTS 18 YEARS OF AGE AND OLDER. Globulin (S) [Mass/Vol] 3.7 g/dL Normal 1.5 - 3.8 [facility] Comment on above: Performed By: #### 2 04456 #### [facility],[address] [place] [address]326 Glucose [Mass/Vol] 91 mg/dL Normal 74 - 106 [facility] Comment on above: Performed By: #### 2 63235 #### [facility],[address] [place] [address] 01833 Potassium [Moles/Vol] 4.2 mmol/L Normal 3.5 - 5.1 [facility] Comment on above: Performed By: #### 2 98619 #### [facility],[address] [place] [address] 47692 Protein [Mass/Vol] 6.9 g/dL Normal 6.4 - 8.2 [facility] Comment on above: Performed By: #### 2 34780 #### [facility],[address] [place] [address] 57684 Sodium [Moles/Vol] 136 mmol/L Normal 136 - 145 [facility] Comment on above: Performed By: #### 2 30522 #### [facility],[address] [place] [address] 62476 Urea nitrogen [Mass/Vol] 12 mg/dL Normal 7 - 18 [facility] Comment on above: Performed By: #### 2 37967 #### [facility],[address] [place] [address] 70446 HEMOGLOBIN A1C (POM)on 08-30 HbA1c (Bld) [Mass fraction] 5.2 % Normal 0.0 - 6.5 [facility] Comment on above: Result Comment: BLDo HEMOGLOBIN A1C REFERENCE RANGESBLDo Suggested Diagnosis HbA1c(%) HbA1C (mmol/mol Diabetic >/=6.5 >/=48 Prediabetes 5.7 - 6.4 39 - 47 Normal <5.7 <39 Performed By: #### 2 70048 #### [facility],[address] [place] [address] 51763 LIPID PROFILEon 08-30-2023 Cholesterol [Mass/Vol] 211 mg/dL Normal 0 - 240 [facility] Comment on above: Performed By: #### 2 61552 #### [facility],[address] [place] [address] 90569 Cholesterol in HDL [Mass/Vol] 49 mg/dL Normal 40 - 60 [facility] Comment on above: Performed By: #### 2 21027 #### [facility],[address] [place] [address] 61943 Cholesterol in LDL [Mass/Vol] 144 mg/dL High 0 - 129 [facility] Comment on above: Performed By: #### 2 63975 #### [facility],[address] [place] [address] 00360 Cholesterol.total/ Cholesterol in HDL [Mass ratio] 4.3 {ratio} Normal 0.0 - 5.0 [facility] Comment on above: Performed By: #### 2 93188 #### [facility],[address] [place] [address] 48591 Lipid 1996 panel Normal [facility] Comment on above: Result Comment: LIPI D PROFILE Performed By: #### 2 40169 #### [facility],[address] [place] [address] 59818 Triglyceride [Mass/Vol] 90 mg/dL Normal 0 - 150 [facility] Comment on above: Performed By: #### 2 51558 #### [facility],[address] [place] [address] 66489 [facility] Free T3 [Mass/Vol] 2.9 pg/mL Normal 2.3-4.1 [facility] Comment on above: Order Comment: Randy escobedo Type: BLOOD SPECIMEN Ordering Facility: [facility] Address: [address] [place] [address] Performed By: #### Keaton NOBLE, #### [facility] CLIA [id number] [address] [place] [address] [place] T4-FREE (FREE THYROXINE)on 10-30-2022 Free T4 [Mass/Vol] 1.03 ng/dL Normal 0.76 - 1.46 [facility] Comment on above: Result Comment: P otential of falsely elevated results when biotin concentrations are > 10 ng/mL. Performed By: #### 2 34107 #### [facility],[address] [place] [address] THYROGLOBULIN ABon Thyroglobulin Ab Qn [IU]/mL Normal <4.0 [facility] Comment on above: Order Comment: Randy escobedo Type: BLOOD SPECIMEN Ordering Facility: [facility] Address: [address] [place] [address] Result Comment: The Thyroglobulin Antibody test was performed using the [employer] Un[employer]el DXI paramagnetic particle chemiluminescent immunoassay method. Results obtained with different assay methods or kits cannot be used interchangeably. Performed By: #### Keaton NOBLE, #### [facility] CLIA [id number] [address] [place] [address] [place] TSHon 08-30-2023 TSH Qn 1.28 m[IU]/L Normal 0.35 - 3.74 [facility] Comment on above: Performed By: #### 2 31457 #### [facility],[address] [place] [address] 13498 URINALYSISon 08-30-2023 Amorphous NONE Normal [facility] Comment on above: Performed By: #### 2 47885 #### [facility],[address] [place] [address] 75402 Bacteria NONE Normal [facility] Comment on above: Performed By: #### 2 13833 #### [facility],[address] [place] [address] 03071 Bilirubin Ql (U) Negative Normal NORMAL: NEGATIVE [facility] Comment on above: Performed By: #### 2 41580 #### [facility],[address] [place] [address] 91941 Casts NONE Normal [facility] Comment on above: Performed By: #### 2 71439 #### [facility],[address] [place] [address] 14436 Clarity (U) clear Normal NORMAL: CLEAR [facility] Comment on above: Performed By: #### 2 11300 #### [facility],[address] [place] [address] 12736 Color (U) yellow Normal NORMAL: YELLOW [facility] Comment on above: Performed By: #### 2 54426 #### [facility],[address] [place] [address] 89440 Crystals LM Nom (Urine sed) NONE Normal [facility] Comment on above: Performed By: #### 2 11277 #### [facility],[address] [place] [address] 65464 Epi Cells FEW Normal [facility] Comment on above: Performed By: #### 2 85051 #### [facility],[address] [place] [address] 78229 Glucose Ql (U) NORM Normal NORMAL: NORMAL [facility] Comment on above: Performed By: #### 2 87711 #### [facility],[address] [place] [address] 20747 Hemoglobin Ql (U) Negative Normal NORMAL: NEGATIVE [facility] Comment on above: Performed By: #### 2 65209 #### [facility],[address] [place] [address] 32524 Ketone Negative Normal NORMAL: NEGATIVE [facility] Comment on above: Performed By: #### 2 93613 #### [facility],[address] [place] [address] Leukocytes 100 Abnormal NORMAL: NEGATIVE [facility] Comment on above: Performed By: #### 2 60983 #### [facility],[address] [place] [address] Mucous NONE Normal [facility] Comment on above: Performed By: #### 2 61599 #### [facility],[address] [place] [address] Nitrite Ql (U) Negative Normal NORMAL: NEGATIVE [facility] Comment on above: Performed By: #### 2 73642 #### [facility],[address] [place] [address] pH (U) 5 [pH] Normal NORMAL: 5.0-8.0 [facility] Comment on above: Performed By: #### 2 97505 #### [facility],[address] [place] [address] Protein Ql (U) 15 Abnormal NORMAL: NEGATIVE [facility] Comment on above: Performed By: #### 2 81518 #### [facility],[address] [place] [address] Rbc NONE Normal 0-3/hpf [facility] Comment on above: Performed By: #### 2 93357 #### [facility],[address] [place] [address] Sp Wheaton 1.020 Normal NORMAL: 1.010-1.030 [facility] Comment on above: Performed By: #### 2 68533 #### [facility],[address] [place] [address] Specimen Type Void Normal [facility] Comment on above: Performed By: #### 2 01943 #### [facility],[address] [place] [address] Urinalysis dipstick W Reflex Microscopic panel (U) SEE BELOW Normal [facility] Comment on above: Result Comment: MICR OSCOPIC Performed By: #### 2 68858 #### [facility],[address] [place] [address] 23645 Urobilinog NORM Normal NORMAL: NORMAL [facility] Comment on above: Performed By: #### 2 42681 #### [facility],[address] [place] [address] 45954 Wbc 1-5 Normal 0-5/hpf [facility] Comment on above: Performed By: #### 2 85723 #### [facility],[address] [place] [address] 99317 Yeast NONE Normal [facility] Comment on above: Performed By: #### 2 36976 #### [facility],[address] [place] [address] 91366 URINE CREATININE AND PROTEIN RATIOon 08-30-2023 CREATININE UR 197.79 mg/dl Normal [facility] Comment on above: Performed By: #### 2 88541 #### [facility],[address] [place] [address] 61252 PC RATIO 0.07 mg/dL Normal 0.00 - 10.00 [facility] Comment on above: Performed By: #### 2 08277 #### [facility],[address] [place] [address] 70865 Protein (U) [Mass/Vol] 14.00 mg/dL High 0.00 - 10.00 [facility] Comment on above: Performed By: #### 2 35211 #### [facility],[address] [place] [address] 07629 VITAMIN B-12on 08-30-2023 Cobalamin (Vitamin B12) [Mass/Vol] 434 pg/mL Normal 193 - 986 [facility] Comment on above: Performed By: #### 2 28358 #### [facility],[address] [place] [address] 26547 VITAMIN D, 25 HYDROXYon 08-18 VitD 31.30 ng/mL Normal 30.00 - 100 [facility] Comment on above: Result Comment: 25-O HD3 indicates both endogenous production and supplementation. 25-OHD2 is an indicator of exogenous sources, such as diet or supplementation. Therapy is based on measurement of Total 25-OHD, with levels <20 ng/mL indicative of Vitamin D deficiency, while levels between 20 ng/mL and 30 ng/mL suggest insufficiency. Optimal levels are >=30ng/mL. Vitamin D, 25-OH D3 Not Established Vitamin D, 25-OH D2 Not Established Performed By: #### 2 54093 #### [facility],[address] [place] [address] 39460 HbA1c (Bld)on 01-21-2023 Average glucose Estimated from glycated hemoglobin (Bld) [Mass/Vol] 108 mg/dL Normal [facility] Comment on above: Order Comment: Randy escobedo Type: BLOOD SPECIMEN Ordering Facility: [facility] Address: [address] [place] [address] Result Comment: eAG: (Estimated average glucose) is a calculated value from HgbA1c and is front office representative of the average blood glucose level in the last 2-3 month period. Performed By: #### 5 5454-3 #### [facility] CLIA [id number] [address] [place] [address] [place] HbA1c (Bld) [Mass fraction] 5.4 % Normal 4.3-5.6 [facility] Comment on above: Order Comment: Randy escobedo Type: BLOOD SPECIMEN Ordering Facility: [facility] Address: [address] [place] [address] Result Comment: Amer [place] Diabetes Association guidelines indicate that patients with HgbA1c in the range 5.7-6.4% are at increased risk for development of diabetes, and intervention by lifestyle modification may be beneficial. HgbA1c greater or equal to 6.5% is considered diagnostic of diabetes. Performed By: #### 5 5454-3 #### [facility] CLIA [id number] [address] [place], [place] [id number] [place] HbA1c (Bld)on 10-20-2022 Average glucose Estimated from glycated hemoglobin (Bld) [Mass/Vol] 111 mg/dL Normal [facility] Comment on above: Order Comment: Randy escobedo Type: BLOOD SPECIMEN Ordering Facility: [facility] Address: [facility] [place] [address] Result Comment: eAG: (Estimated average glucose) is a calculated value from HgbA1c and is front office representative of the average blood glucose level in the last 2-3 month period. Performed By: #### 5 5454-3 #### [facility] CLIA [id number] [address] [place] [address] [place] HbA1c (Bld) [Mass fraction] 5.5 % Normal 4.3-5.6 [facility] Comment on above: Order Comment: Randy escobedo Type: BLOOD SPECIMEN Ordering Facility: [facility] Address: [address] [place] [address] Result Comment: Amer ican Diabetes Association guidelines indicate that patients with HgbA1c in the range 5.7-6.4% are at increased risk for development of diabetes, and intervention by lifestyle modification may be beneficial. HgbA1c greater or equal to 6.5% is considered diagnostic of diabetes. Performed By: #### 5 5454-3 #### [facility] CLIA [id number] [address] [place] [address] [place] HbA1c (Bld)on 10-17-2022 Average glucose Estimated from glycated hemoglobin (Bld) [Mass/Vol] 114 mg/dL Normal [facility] Comment on above: Order Comment: Randy escobedo Type: BLOOD SPECIMEN Ordering Facility: [facility] Address: [address] [place] [address] Result Comment: eAG: (Estimated average glucose) is a calculated value from HgbA1c and is front office representative of the average blood glucose level in the last 2-3 month period. Performed By: #### 5 5454-3 #### [facility] CLIA [id number] [address] [place] [address] [place] HbA1c (Bld) [Mass fraction] 5.6 % Normal 4.3-5.6 [facility] Comment on above: Order Comment: Randy escobedo Type: BLOOD SPECIMEN Ordering Facility: [facility] Address: [address], [place] [address] Result Comment: Shayla ican Diabetes Association guidelines indicate that patients with HgbA1c in the range 5.7-6.4% are at increased risk for development of diabetes, and intervention by lifestyle modification may be beneficial. HgbA1c greater or equal to 6.5% is considered diagnostic of diabetes. Performed By: #### 5 5454-3 #### [facility] CLIA [id number] [address] [place] [address] [place] THYROGLOBULIN ABon 2 Thyroglobulin Ab Qn 1.9 [IU]/mL Normal <14.4 [facility] Comment on above: Order Comment: Randy escobedo Type: BLOOD SPECIMEN Ordering Facility: [facility] Address: [address], [place] [address] Performed By: #### T AIDE #### [facility] CLIA [id number] [address] [place] [address] [place] US BREAST LIMITED BILATERALo n 08-12-2022 US BREAST LIMITED BILATERAL EXAM: US BREAST LIMITED BILATERAL, 08/12/2022 10:57 AM CLINICAL INDICATIONS: 47-year-old female who presents for evaluation of new onset of bilateral clear spontaneous nipple discharge for 3 months. COMPARISON: Mammogram 07/29/2022, 08/13/2021 TECHNIQUE: Multiple real-time croft-scale images of the bilateral subareolar regions were obtained by the black topper. Color Doppler was used to assess vascular flow. FINDINGS: Targeted ultrasound the subareolar right breast [...] Benign Recommendation: Clinical correlation/management. Recommendation Laterality: Right Normal [facility] US Breast - bilateral limite don 08-12-2022 IMPRESSION: No suspicious sonographic finding identified. 2 ducts containing debris were identified in the right breast at 12:00 and 9:00 subareolar with no intraductal mass identified. BI-RADS: 2: Benign Recommendation: Clinical correlation/management. Recommendation Laterality: Right OLOGY EXAM: US BREAST LIMI TIMOTHY BILATERAL, 08/12/2022 10:57 AM CLINICAL INDICATIONS: 47-year-old female who presents for evaluation of new onset of bilateral clear spontaneous nipple discharge for 3 months. COMPARISON: Mammogram 07/29/2022, 08/13/2021 TECHNIQUE: Multiple real-time croft-scale images of the bilateral subareolar regions were obtained by the black topper. Color Doppler was used to assess vascular flow. FINDINGS: Targeted ultrasound the subareolar right breast [...] Vascularity is normal. No mass is identified. RADIOLOGY Cynthia Veliz DO - 08/12/2022 EXAM: US BREAST LIMITED BILATERAL, 08/12/2022 10:57 AM CLINICAL INDICATIONS: 47-year-old female who presents for evaluation of new onset of bilateral clear spontaneous nipple discharge for 3 months. COMPARISON: Mammogram 07/29/2022, 08/13/2021 TECHNIQUE: Multiple real-time croft-scale images of the bilateral subareolar regions were obtained by the black topper. Color Doppler was used to assess vascular flow. FINDINGS: Targeted ultrasound the subareolar right breast [...] Vascularity is normal. No mass is identified. IMPRESSION IMPRESSION: No suspicious sonographic finding identified. 2 ducts containing debris were identified in the right breast at 12:00 and 9:00 subareolar with no intraductal mass identified. BI-RADS: 2: Benign Recommendation: Clinical correlation/management. Recommendation Laterality: Right [facility] Radiology Study observation (narrative) [facility] US Breast - bilateral limite dOrdered By: Cynthia Veliz on 08-12-2022 [facility] Work Phone: BREAST IMAGING SECOND OPINIO N READINGon 08-07-2022 BREAST IMAGING SECOND OPINION READING EXAM: BREAST IMAGING SECOND OPINION READING, 08/06/2022 [...] correlation with the clinical exam and scenario. Normal [facility] Free T3on 10-16-2021 Free T3 [Mass/Vol] 3.6 pg/mL Normal 2.3-4.1 [facility] Comment on above: Performed By: #### F REET3 #### [facility] Routine Lab [address] [place], [place] [id number] Hemoglobin A1con 10-16-2021 Glucose [Mass/Vol] 126 mg/dL Normal [facility] Comment on above: Performed By: #### H BA1C #### [facility] Routine Lab [address] [place], [place] [id number] HbA1c (Bld) [Mass fraction] 6.0 % High 4.3-5.6 [facility] Comment on above: Performed By: #### H BA1C #### [facility] Routine Lab [address] [place], [place] [address] XR Hand - right PA and Later al and Obliqueon 01-15-2021 IMPRESSION: Negative right hand. Coat Cutter: MATEO Transcribe Date/Time: Jan 15 2021 5:16P Dictated by : VIOLETA SHAIKH MD This examination was interpreted and the report reviewed and electronically signed by: VIOLETA SHAIKH MD on Jan 15 2021 5:17PM [facility] DIVISION OF RADIOLOGY * * *Final Report* * * DATE OF EXAM: Jan 15 2021 5:12PM WOX [id number] - XR HAND 3V PA/LAT/OBL RT / PROCEDURE REASON: Right hand pain * * * * Physician Interpretation * * * * EXAMINATION: RIGHT HAND X-RAY SERIES HISTORY: Right hand pain COMPARISON: None available. TECHNIQUE: PA, lateral and oblique views. RESULT: No fracture, dislocation or destructive changes. Joint spaces and articular surfaces are preserved. Soft tissues appear within normal limits. DIVISION OF RADIOLOGY Provider, Laura Rodriguez [facility] - 01/15/2021 * * *Final Report* * * DATE OF EXAM: Jan 15 2021 5:12PM WOX [id number] - XR HAND 3V PA/LAT/OBL RT / PROCEDURE REASON: Right hand pain * * * * Physician Interpretation * * * * EXAMINATION: RIGHT HAND X-RAY SERIES HISTORY: Right hand pain COMPARISON: None available. TECHNIQUE: PA, lateral and oblique views. RESULT: No fracture, dislocation or destructive changes. Joint spaces and articular surfaces are preserved. Soft tissues appear within normal limits. IMPRESSION IMPRESSION: Negative right hand. Coat Cutter: PSCB Transcribe Date/Time: Jan 15 2021 5:16P Dictated by : VIOLETA SHAIKH MD This examination was interpreted and the report reviewed and electronically signed by: VIOLETA SHAIKH MD on Jan 15 2021 5:17PM EST [facility] Radiology Study observation (narrative) [facility] XR Hand - right PA and Later al and ObliqueOrdered By: [facility] Provider on 01-15-2021 [facility] Office Visit: new patient, E R follow upon 03-30-2017 Documentation of current medications (procedure) Done Invalid Interpretation Code [facility] Work Phone: Tobacco smoking status Never Invalid Interpretation Code [facility] Work Phone: Tobacco use status [facility] Former smoker Invalid Interpretation Code [facility] Work Phone: Vital Signs Date Time Vital Sign Value Performing Clinician Dmitriy rashid 08-12-2022 09:15-0400 Body temperature 98.4 [degF] Brian Bearden PROOF COIN COLLECTOR-WALNUT DEHYDRATOR OPERATOR Work Phone: [facility] 08-12-2022 09:15-0400 Body weight 116.94 kg Brian Salisbury PROOF COIN COLLECTOR-WALNUT DEHYDRATOR OPERATOR Work Phone: [facility] 08-12-2022 09:15-0400 Diastolic blood pressure 59 mm[Hg] Brian German PROOF COIN COLLECTOR-WALNUT DEHYDRATOR OPERATOR Work Phone: [facility] 08-12-2022 09:15-0400 Heart rate 77 /min Brian German PROOF COIN COLLECTOR-WALNUT DEHYDRATOR OPERATOR Work Phone: [facility] 08-12-2022 09:15-0400 Systolic blood pressure 122 mm[Hg] Brian Salisbury PROOF COIN COLLECTOR-WALNUT DEHYDRATOR OPERATOR Work Phone: [facility] 03-30-2017 08:10-0400 Body height 162.56 cm Ynes Yensho BAG MACHINE OPERATOR HELPER [facility] Work Phone: 03-30-2017 08:10-0400 Body mass index (BMI) [Ratio] 43.08 kg/m2 Ynes Yensho BAG MACHINE OPERATOR HELPER [facility] Work Phone: 03-30-2017 08:10-0400 Body temperature 97.6 [degF] Ynes Yensho BAG MACHINE OPERATOR HELPER [facility] Work Phone: 03-30-2017 08:10-0400 Body weight 113.85 kg Ynes Yensho BAG MACHINE OPERATOR HELPER [facility] Work Phone: 03-30-2017 08:10-0400 Diastolic blood pressure 72 mm[Hg] Ynes Yensho BAG MACHINE OPERATOR HELPER [facility] Work Phone: 03-30-2017 08:10-0400 Heart rate 78 /min Ynes Yensho BAG MACHINE OPERATOR HELPER [facility] Work Phone: 03-30-2017 08:10-0400 Respiratory rate 18 /min Ynes Yensho BAG MACHINE OPERATOR HELPER [facility] Work Phone: 03-30-2017 08:10-0400 SaO2% (BldA) [Mass fraction] 98 % Ynes Richards LPN [facility] Work Phone: 03-30-2017 08:10-0400 Systolic blood pressure 120 mm[Hg] Ynes Richards LPN [facility] Work Phone: 03-30-2017 08:10-0400 Weight 113.85 kg Sandie Max LPN [facility] Work Phone: Encounters Encounter Date Encounter Type Care Provider Facility Start: 07-25-2024 ambulatory [facility] Start: 07-24-2024 ambulatory [facility] Start: 08-30-2023 End: 08-30-2023 ambulatory [facility] [facility] Start: 08-12-2022 ambulatory BRIAN BEARDEN Facility: [facility] Start: 08-12-2022 ambulatory BRIAN BEARDEN Facility: [facility] Start: 08-12-2022 End: 08-12-2022 Subsequent hospital visit by physician Brian Bearden PROOF COIN COLLECTOR-WALNUT DEHYDRATOR OPERATOR Work Phone: [facility] Comment on above: Arrived Start: 08-12-2022 End: 08-12-2022 Office outpatient new 45 minutes Brian Bearden PROOF COIN COLLECTOR-WALNUT DEHYDRATOR OPERATOR Work Phone: Division of Surgical Oncology Comment on above: Bilateral nipple dis charge (Primary Dx) Start: 08-06-2022 ambulatory BRIAN BEARDEN Facility: [facility] Start: 08-06-2022 End: 08-06-2022 Subsequent hospital visit by physician Brian Bearden PROOF COIN COLLECTOR-WALNUT DEHYDRATOR OPERATOR Work Phone: [facility] Comment on above: Arrived Start: 01-15-2021 End: 01-15-2021 Subsequent hospital visit by physician Lucinda [facility] [place] Work Phone: Radiology Comment on above: Right hand pain [M79 .641] Procedures Date Procedure Procedure Detail Performing Clinician Start: 08-30-2023 Urinalysis AMARIS KELSEY Comment on above: Result Comment: URIN ALYSIS Performed By: #### [id number] #### [place] [facility],[address] [address] Start: 08-12-2022 Us breast uni real t dionte with image limited Brian Bearden PROOF COIN COLLECTOR-WALNUT DEHYDRATOR OPERATOR Work Phone: Start: 01-15-2021 Radex hand minimum 3 views Alva Rae PAAdiliaC Work Phone: Start: 07-06-2020 Lipid 1996 panel - S eneida or Plasma [facility] [place] Work Phone: Start: 08-04-2018 Colonoscopy [facility] [place] Work Phone: Start: 08-09-2017 Screening mammography Mammogra m yearly screening Angelica Juan MD Work Phone: Start: 03-30-2017 End: 03-30-2017 Documentation of current medications Ynes Richards LPN Plan of Treatment Date Care Activity Detail Author Start: 12-29-2027 Tetanus vaccination TETANUS [facility] Start: 12-29-2027 Urine microalbumin profile DTaP,Tdap,Td Vaccine (4 - Td or Tdap) [facility] Start: 01-21-2026 Diabetes Screening Diabetes Screenin g [facility] Start: 07-06-2025 Lipid panel Lipid Screening [facility] Start: 06-18-2024 Covid-19 Vaccine ( season) Covid-19 Vaccine ( season) [facility] Start: 06-18-2024 Influenza vaccination Influenz a Vaccine (#1) [facility] Start: 07-29-2023 Screening for malign ant neoplasm of breast MAMMOGRAM SCREENING DISCUSSION [facility] Start: 02-17-2023 End: 02-17-2023 Patient encounter procedure 02/17/2023 Office Visit Surgical Oncology Brian Bearden, PROOF COIN COLLECTOR-WALNUT DEHYDRATOR OPERATOR [address] [place] [address] Division of Surgical Oncology Start: 08-12-2022 End: 08-12-2022 Patient encounter procedure 08/12/2022 Appointment Mammography Brian Bearden, PROOF COIN COLLECTOR-WALNUT DEHYDRATOR OPERATOR [address] [place] [address] [facility] Start: 08-12-2022 End: 08-12-2022 Patient encounter procedure Division of Surgical Oncology Start: 06-18-2022 Influenza vaccination INFLUENZ A VACCINE (#1) [facility] Start: 2022 Screening for malign ant neoplasm of colon [facility] Start: 02-11-2021 Screening for malign ant neoplasm of breast Mammogram Screening [facility] Start: 09-04-2019 Screening for malign ant neoplasm of cervix Cervical Cancer Screening [facility] Start: 09-28-2017 End: 09-28-2017 Appointment Appointment [facility] Work Phone: Start: 08-09-2017 End: 08-09-2017 Mammogram, screening Mammogram, Screening, both breasts [facility] [place] Work Phone: Start: 08-09-2017 End: 08-09-2017 Mammogram, screening Mammogram, Screening, both breasts [facility] Start: 2017 Lipid panel LIPID SCREENING [facility] Start: 04-29-2017 End: 04-29-2017 Patient encounter procedure Appointment [facility] Work Phone: Start: 03-30-2017 End: 03-30-2017 Complete sleep workup (PSG,CPAP as indicated) & Follow up Complete sleep workup (PSG,CPAP as indicated) & Follow up [facility] [place] Work Phone: Start: 03-30-2017 End: 03-30-2017 Ct thorax w/o contrast material CT Chest without contrast [facility] Work Phone: Start: 03-30-2017 End: 03-30-2017 DMB DMB [facility] [place] Work Phone: Start: 03-30-2017 End: 03-30-2017 Follow Up Appt 3 months Follow Up Appt 3 months [facility] Phone: Start: 03-30-2017 End: 03-30-2017 Pulmonary Function Test - complete Pulmonary Function Test - complete [facility] Phone: Start: 03-30-2017 End: 03-30-2017 Titration with Follow up (pt not on cpap) Titration with Follow up (pt not on cpap) [facility] Phone: Start: 03-30-2017 End: 03-30-2017 Patient encounter procedure Appointment [facility] Phone: Start: 03-30-2017 End: 03-30-2017 Complete sleep workup (PSG,CPAP as indicated) & Follow up Complete sleep workup (PSG,CPAP as indicated) & Follow up [facility] Phone: Start: 03-30-2017 End: 03-30-2017 Ct thorax w/o contrast material CT Chest without contrast [facility] Phone: Start: 03-30-2017 End: 03-30-2017 DMB DMB [facility] Phone: Start: 03-30-2017 End: 03-30-2017 Follow Up Appt 3 months Follow Up Appt 3 months [facility] Phone: Start: 03-30-2017 End: 03-30-2017 Pulmonary Function Test - complete Pulmonary Function Test - complete [facility] Phone: Start: 03-30-2017 End: 03-30-2017 Titration with Follow up (pt not on cpap) Titration with Follow up (pt not on cpap) [facility] Phone: Start: 1998 Screening for malign ant neoplasm of cervix CERVICAL CANCER SCREENING DISCUSSION [facility] Start: 1996 Hepatitis B Vaccine (1 of 3 - 19+ 3-dose series) Hepatitis B Vaccine (1 of 3 - 19+ 3-dose series) [facility] Start: 1995 Anxiety Screening Anxiety Screening [facility] Start: 1995 Depression Screening Depression Scre orlandoing [facility] Start: 1995 Hepatitis C screening Hepatitis C Sc hemanth [facility] Start: 1992 HIV screening HIV SCREENING DISCUSSION [facility] Start: 1977 COVID-19 VACCINE (#1) COVID-19 VACCI NE (#1) [facility] Start: 1977 Hepatitis C screening HEPATITI S C VIRUS SCREENING [facility] End: 08-06-2022 MG Breast Views [facility] Work Phone: Comment on above: 1 Occurrences starti ng 08/06/2022 until 08/06/2022 Immunizations Immunization Date Immunization Notes Care Provider Brian murray 06-08-2019 pneumococcal conjuga te vaccine, 13 valent [facility] [place] Work Phone: [facility] 10-07-2018 influenza virus vaccine, unspecified formulation [facility] [place] Work Phone: [facility] 12-28-2017 tetanus toxoid, redu benton diphtheria toxoid, and acellular pertussis vaccine, adsorbed [facility] [place] Work Phone: [facility] 07-06-2017 influenza, injectabl e, quadrivalent, contains preservative [facility] [place] Work Phone: [facility] 07-06-2017 influenza virus vaccine, unspecified formulation Brian Bearden PROOF COIN COLLECTOR-WALNUT DEHYDRATOR OPERATOR Work Phone: [facility] 08-01-2014 influenza, seasonal, injectable [facility] [place] Work Phone: [facility] 03-28-2014 measles, mumps and rubella virus vaccine [facility] [place] Work Phone: [facility] 05-15-2008 RHO(D) immune globul in- IV or IM [facility] [place] Work Phone: [facility] 08-11-2007 human papilloma viru s vaccine, quadrivalent [facility] [place] Work Phone: [facility] Work Phone: 04-05-2007 human papilloma viru s vaccine, quadrivalent [facility] [place] Work Phone: [facility] 01-27-2007 human papilloma viru s vaccine, quadrivalent [facility] [place] Work Phone: [facility] Work Phone: 04-09-2005 diphtheria and tetan us toxoids, adsorbed for pediatric use [facility] [place] Work Phone: [facility] Payers Date Payer Category Payer Unknown [employer]ETTEKATLIN ASHLEY HM O PPO POS [id number] 2021-Present [address] [place] [address] [id number] 2021 Unknown [id number] 1977 Unknown [id number] 1977 Unknown [id number] 1977 Unknown [id number] 1977 Unknown [id number] 1977 Unknown [id number] 1977 Unknown [id number] 1977 Unknown [id number] Private Health Insurance [id number] Social History Date Type Detail Facility Tobacco smoking stat us MAIS Tobacco smoking consumption unknown [facility] Start: 1977 Sex Assigned At Not on file [facility] Start: 11-17-2013 End: 08-12-2022 Tobacco smoking status NHIS Ex-smoker [facility] Start: 07-19-1997 End: 07-19-2013 History of tobacco use Current smoker [facility] Start: 07-19-1997 End: 07-19-2013 History of tobacco use Cigarette Smoker [facility] Start: 09-24-2020 End: 08-12-2022 Cigarettes smoked current (pack per day) - Reported 2 [facility] Start: 11-17-2013 End: 08-12-2022 Tobacco use and exposure Smokeless tobacco non-user [facility] Start: 01-15-2021 End: 08-12-2022 Alcohol intake Current drinker of alcohol (finding) [facility] Start: 09-24-2020 End: 10-20-2020 Social connection and isolation panel [facility] Do you belong to any clubs or organizations such as pentecostal groups, unions, fraternal or athletic groups, or school groups? No [facility] Are you now , , , , never or living with a partner? [facility] How often to you hav e a drink containing alcohol? Monthly or less [facility] How many standard dr inks containing alcohol do you have on a typical day? Patient declined [facility] How often do you hav e 6 or more drinks on 1 occasion? Less than monthly [facility] Do you feel stress - tense, restless, nervous, or anxious, or unable to sleep at night because your mind is troubled all the time - these days [OSQ] Rather much [facility] (I/We) worried wheth er (my/our) food would run out before (I/we) got money to buy more. Never true [facility] Start: 10-20-2020 Education 15 [facility] Start: 09-27-2015 Alcohol Comment Rarely [facility] Start: 12-16-2020 End: 01-15-2021 Exposure to SARS-CoV-2 (event) Not sure [facility] Medical Equipment Procedure Code Equipment Code Equipment Origin al Text Equipment Identifier Dates Clip Flsh Int Fa lop Tube Ti - [id number] Start: 04-03-2014 History of Present illness Narrative 08-12-2022 Kayla Miladys - 08/12/2022 10:30 AM EDT Note Date & Type Note Facility 08-12-2022 History of Presen t illness Narrative Patient offered a medical cold strip feeder for sensitive exam. Pt declined documented in this encounter [facility] History and physical note 08-12-2022 Brian Bearden, PROOF COIN COLLECTOR-WALNUT DEHYDRATOR OPERATOR - 08/12/2022 9:15 AM EDT Note Date & Type Note Facility 08-12-2022 History and physical note Date of Service: 08/12/2022 History of Present Illness: Chief Complaint Patient presents with New Patient New Left breast and Left axillary mass Chastity Nunez is a 47 y.o. menopausal female who presents to the [facility] [place] on 08/12/2022 for evaluation [...] use of supplements. She presents to the [facility] today for evaluation, 2nd opinion radiology review. She referred herself. Chastity Nunez reports examining her breasts intermittently. She denies any history of breast problems or previous breast biopsy. She denies any family history of ovarian cancer. There is a significant family history of colon cancer. She advises she had genetic testing at [facility] which was negative. Patient's mother is present today and advises (2) of her cousins had breast cancer. There are no first degree or 2nd degree family members with a history of breast cancer. 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 Last PAP: 2010 Para: [...] V, no on anticoagulant therapy. +PE and IN one week , PE resolved in hospital and did not take skilled nursing anti coagulants. No damage from IN. Gastrointestinal: Negative for abdominal pain, nausea, vomiting, diarrhea or changes in bowel habits. +low Ferritin and constipation since started iron. +Low abdominal pain and left ovarian concerns almost went to the ED, accompanied by cramping-does have a GAS CUTTING MACHINE OPERATOR she can follow up with. Genitourinary: Negative [...] of nipple discharge. Obtain genetics results from [facility]. These records have been requested. GREGORY Fowler, AOEMILIANAP Breast [facility] P: [phone] [facility] History and physical note 08-12-2022 GREGORY Osuna - 08/12/2022 9:15 AM EDT Note Date & Type Note Facility 08-12-2022 History and physical note Date of Service: 08/12/2022 History of Present Illness: Chief Complaint Patient presents with New Patient New Left breast and Left axillary mass Chastity Nunez is a 47 y.o. menopausal female who presents to the [facility] [place] [facility] on 08/12/2022 for evaluation [...] use of supplements. She presents to the [facility] today for evaluation, 2nd opinion radiology review. She referred herself. Chastity Nunez reports examining her breasts intermittently. She denies any history of breast problems or previous breast biopsy. She denies any family history of ovarian cancer. There is a significant family history of colon cancer. She advises she had genetic testing at [facility] which was negative. Patient's mother is present today and advises (2) of her cousins had breast cancer. There are no first degree or 2nd degree family members with a history of breast cancer. 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 Last PAP: 2010 Para: [...] V, no on anticoagulant therapy. 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 No damage from IN. Gastrointestinal: Negative for abdominal pain, nausea, vomiting, diarrhea or changes in bowel habits. +low Ferritin and constipation since started iron. +Low abdominal pain and left ovarian concerns almost went to the ED, accompanied by cramping-does have a GAS CUTTING MACHINE OPERATOR she can follow up with. Genitourinary: Negative [...] of nipple discharge. Obtain genetics results from [facility]. These records have been requested. GREGORY Fowler, [facility] P: [phone] documented in this encounter [facility] History of Present illness Narrative 08-12-2022 Oxana Beverly RN - 08/12/2022 9:15 AM EDT Note Date & Type Note Facility 08-12-2022 History of Presen t illness Narrative Chastity Nunez was offered and declined a Medical Crew Mess Attendant for this exam/procedure/test 08/12/2022. documented in this encounter [facility] History of Present illness Narrative 01-15-2021 Allen Potter (Alana Lo - 01/15/2021 5:00 PM EDT Note Date & Type Note Facility 01-15-2021 History of Presen t illness Narrative Radiology Service Progress Note PATIENT NAME: Chastity Nunez DATE OF SERVICE: January 15, 2021 TIME: 5:07 PM PATIENT IDENTITY VERIFICATION COMPLETED USING TWO (2) IDENTIFIERS: Name and Date of confirmed by patient verbally. FALL SCREENING: Has the patient had 2 falls in the last year or 1 fall with injury or currently using an Ambulatory Assistive Device (Walker, Cane, Wheelchair, Crutches, etc.)? No PATIENT GENDER DATA: Female. status: : No status: NO. PATIENT RELEVANT IMPLANT DATA REVIEWED: Not Applicable RADIOLOGY DEPARTMENT: General X-ray: Exam(s) Completed: Upper Extremity X-Ray(s): Hand, right : PERIPHERAL IV DATA: Not applicable SIGNED BY: RT Cher January 15, 2021 5:07 PM documented in this encounter [facility] Evaluation note Note Date & Type Note Facility Evaluation note Diagnosis Abnormal finding on breast imaging Other (abnormal) findings on radiological examination of breast Breast swelling Lump or mass in breast Left axillary swelling documented in this encounter [facility] Evaluation note Note Date & Type Note Facility Evaluation note Diagnosis Bilateral nipple discharge- Primary Bilateral nipple discharge documented in this encounter [facility] Evaluation note Note Date & Type Note Facility Evaluation note Diagnosis Bilateral nipple discharge documented in this encounter [facility] Evaluation note Note Date & Type Note Facility Evaluation note Diagnosis Right hand pain Pain in limb [facility] Inst[facility] Attachments Note Date & Type Note Facility Instructions The following attachments cannot be sent through Care Everywhere.Breast Pain (Mastalgia) ([facility]) (Nepali)Breast Health ([facility]) (Nepali)documented in this encounter [facility] Summary Purpose Family History No Family History Records FoundNo Family History Records FoundNo Family History Records FoundNo Family History Records Found Advance Directives No Advanced Directives Records FoundNo Advanced Directives Records FoundNo Advanced Directives Records FoundNo Advanced Directives Records Found Reason for Referral Specialty Diagnoses / Procedures Referred By Robinson t Referred To Contact Diagnoses Bilateral nipple discharge Procedures US BREAST LIMITED BILATERAL US BREAST LIMITED BILATERAL Brian Bearden PROOF COIN COLLECTOR-WALNUT DEHYDRATOR OPERATOR [address] [place] [address] Referral ID Status Reason Start Date Expiration Date V isits Requested Visits Authorized [id number] New Request 08/12/2022 09/06/2023 1 1 Additional Source Comments INFORMATION SOURCE (unrecogn ized section and content) DATE CREATED AUTHOR 10/16/2021 [facility] DATE CREATED AUTHOR AUTHOR'S ORGANIZ ATION 08/13/2022 [facility] DATE CREATED AUTHOR AUTHOR'S ORGANIZ ATION 09/02/2023 [facility] DATE CREATED AUTHOR AUTHOR'S ORGANIZ ATION 07/25/2024 [facility] Reason for Visit (unrecogniz ed section and content) Specialty Diagnoses / Procedures Referred By Contac t Referred To Contact Diagnoses Abnormal finding on breast imaging Breast swelling Left axillary swelling Procedures BREAST IMAGING SECOND OPINION READING Brian Bearden PROOF COIN COLLECTOR-WALNUT DEHYDRATOR OPERATOR [address] [place] [address] Referral ID Status Reason Start Date Expiration Date V isits Requested Visits Authorized [id number] New Request 08/06/2022 08/31/2023 1 1 Reason Comments New Patient New Left breast and Left axillary mass Specialty Diagnoses / Procedures Referred By Contac t Referred To Contact Certified Nurse Practitioner / Surgical Oncology Diagnoses New- 2nd opinion- L axillary & breast swelling - imaging at [facility]- self-referral Procedures NEW DIAGNOSTIC BREAST CLINIC Self, Self Brian Bearden, PROOF COIN COLLECTOR-WALNUT DEHYDRATOR OPERATOR [address] [place] [address] Referral ID Status Reason Start Date Expiration Date V isits Requested Visits Authorized [id number] New Request 08/12/2022 09/06/2023 1 1 Specialty Diagnoses / Procedures Referred By Contac t Referred To Contact Diagnoses Bilateral nipple discharge Procedures US BREAST LIMITED BILATERAL US BREAST LIMITED BILATERAL Brian Bearden, PROOF COIN COLLECTOR-WALNUT DEHYDRATOR OPERATOR [address] [place] [address] Referral ID Status Reason Start Date Expiration Date V isits Requested Visits Authorized [id number] New Request 08/12/2022 09/06/2023 1 1 Care Teams (unrecognized sec tion and content) Member Services Representative Relationship Specialty Start Date End Date Horace Paniagua MD [address] [place] [address] PCP - General Family Medicine 07/27/16 Member Services Representative Relationship Specialty Start Date End Date Horace Paniagua MD [address] [place] [address] PCP - General Family Medicine 07/27/16 Member Services Representative Relationship Specialty Start Date End Date Horace Paniagua MD [address] [place] [address] PCP - General Family Medicine 07/27/16 Member Services Representative Relationship Specialty Start Date End Date Horace Paniagua III, MD [place] [address]WARD[address] ADDRESS PCP - General 01/02/03 Source Comments (unrecognize d section and content) In the event this informatio n is protected by the Federal Confidentiality of Alcohol and Drug Abuse Patient Records regulations: The Federal rules restrict any use of the information to criminally investigate or prosecute any alcohol or drug abuse patient.[facility] FOR RECORDS PERTAINING TO PATIENTS WHO ARE [...] BE BASED ON THE PRIMARY CLINICAL RECORDS. [facility] [employer] [facility]. provides no warranty or guarantee of the accuracy or completeness of information in this document.
[2024-08-10 13:35] LABS: Anion Gap 4 (5-15); BUN 13 mg/dL (7-18); BUN/Creat Ratio 14.2 RATIO (10-20); Calcium,Total 9.1 mg/dL (8.5-10.1); Chloride 103 mmol/L (98-107); Creatinine, Serum 0.92 mg/dL (0.55-1.02); EST Glomerular Filtration Rate 70 mL/min (>60); Est Glom Filt Rate - Afr Amer 84 mL/min (>60); Glucose 98 mg/dL (74-106); Sodium Level 133 mmol/L (136-145); Troponin-I HS < 3 pg/mL (3.0-54.0)
[2024-08-10 13:59] VITALS: BP 120/82; PULSE 65; RESP 18; TEMP 37.2; O2SAT 99
[2024-08-10] MEDS: levoFLOXacin 750 MG Tablet PO (14:46)
[2024-08-10 14:48] VITALS: BP 133/86; PULSE 91; RESP 15; TEMP 36.5; O2SAT 98
== END 2024-08-10 14:49 | disposition home or self-care (01) ==
PROVIDERS: Emergency Provider Emergency Medicine; PCP Family Medicine; Visit Provider Emergency Medicine
DX: J18.9 Pneumonia, unspecified organism (principal); E78.00 Pure hypercholesterolemia, unspecified; R51.9 Headache, unspecified; I10 Essential (primary) hypertension; M54.9 Dorsalgia, unspecified; Z90.710 Acquired absence of both cervix and uterus; Z87.891 Personal history of nicotine dependence; Z90.49 Acquired absence of other specified parts of digestive tract; Z86.711 Personal history of pulmonary embolism; I25.2 Old myocardial infarction
CPT/HCPCS: 71046; 80048; 84484; 85025; 87631; 93005; 96374; 99284; A4216

== ENCOUNTER 2024-10-07 15:07 | Emergency (ER) | payer BC, SELFPAY ==
[2024-10-07 15:07] VITALS: BP 125/81; PULSE 93; RESP 17; TEMP 36.2; O2SAT 96; BMI 39.3
--- NOTE | 2024-10-07 15:46 | EDS_ITS ---
HPI <GRACE Saldaña - Last Filed: 10/07/24 15:59> History of Present Illness Chief Complaint: Eye Problem Narrative Narrative: Patient a 49-year-old female with history of diabetes who presents to the [facility] apartment with left eye pain. Patient does wear contact lenses. Patient states she was wearing her contacts, and doing nails when the nail bottle exploded into her left eye. This was some glue. She immediately had ripped out her contact. She states she continues to have blurred vision, pain in her left eye. Denies any surgery to the left eye. PFS <GRACE Saldaña - Last Filed: 10/07/24 15:59> [facility] Medical History CPAP (continuous positive airway pressure) dependence Asthma History of stress test PONV (postoperative nausea and vomiting) High cholesterol History of heart attack (~2007) Hx of colonic polyp Other acute myringitis, left ear Pelvic pressure in female Wears contact lenses Anxiety Alcohol use Blood disorder Back pain Migraine headache History of ulceration History of edema Hypertension History of echocardiogram Cardiology follow-up encounter Genetic testing of female Vitamin D deficiency Former smoker History of kidney stones Migraines Non-STEMI (non-ST elevated myocardial infarction) (07/2008) Myopericarditis Essential (primary) hypertension History of deep venous thrombosis cardiomyopathy Pulmonary embolus (07/2008) Obesity GERD (gastroesophageal reflux disease) Nephrolithiasis Home Medications ?Medication ?Instructions ?Recorded ?Last Taken ?Type sumatriptan succinate 25 mg tablet 50 mg PO .COMPLEX PRN migraine 12/30/23 Unknown History (Imitrex) headache tirzepatide 10 mg/0.5 mL 15 mg subcut WE 12/30/23 04/12/24 History subcutaneous pen injector (Mounjaro) collagen 11 g PO DAILY 03/08/24 Unknown History magnesium 200 mg tablet 200 mg PO DAILY 03/08/24 Unknown History vitamin D3 250 mcg (10,000 1 cap PO DAILY 03/08/24 Unknown History unit)-vitamin K2 45 mcg capsule CATHERINE 8 oz PO DAILY 04/19/24 Unknown History LIONS DILIP 1 tab PO DAILY 04/19/24 04/18/24 History levofloxacin 750 mg tablet 750 mg PO Q24H #4 tabs 08/10/24 Unknown Rx bacitracin 500 unit/gram eye 0.5 inch LEFT EYE Q8H 5 days #3.5 10/07/24 Unknown Rx ointment grams Allergy/AdvReac Type Severity Reaction Status Date / Time nickel (justice) Allergy Rash Verified 10/07/24 15:07 Penicillins Allergy Rash Verified 10/07/24 15:07 Family History Mother Diabetes Hypertension Cancer Uterine cancer Pancreatitis Colon polyps Father Diabetes Heart disease Hypertension CVA (cerebral vascular accident) Daughter Hearing loss Grandmother CVA (cerebral vascular accident) Colon cancer Uncle Colon cancer Uncle Colon cancer Other Gout Surgical History Status post excisional biopsy Hx of lithotripsy History of esophagogastroduodenoscopy (EGD) Hx of colonoscopy Status post left oophorectomy History of shoulder surgery Hx of tympanostomy tubes History of left heart catheterization (07/2008) Hx of cholecystectomy H/O: hysterectomy Social History (Updated 10/07/24 @ 15:32 by Aleyda Ramirez) household members: children Smoking Status: Former smoker quit date: 10/18/12 Tobacco: How many years used: 20 second hand exposure: No alcohol intake: current alcohol intake frequency: 0-2 drinks per day details: social substance use type: does not use caffeine: Yes what type of physical activity do you participate in: none seatbelt use: always do you feel safe at home: Yes additional social history: Patient works at the [employer] <GRACE Saldaña - Last Filed: 10/07/24 15:59> [facility] ED [facility] Narrative Constitutional: Negative for fever, chills, weight loss, weakness Eyes: Negative for vision loss, vision change, double vision. Positive for blurry vision, left eye pain ENT: Negative for any sore throat, ear pain, congestion Cardiovascular: Negative for any chest pain, tightness, palpitations Respiratory: Negative for any cough, sputum production, hemoptysis, dyspnea, dyspnea on exertion, orthopnea Gastrointestinal: Negative for any abdominal pain, nausea, vomiting, diarrhea, c onstipation, blood in stool, blood in vomit : Negative for any urinary frequency, dysuria, retention, blood in urine Muscle skeletal: Negative for any neck pain, back pain Neurological: Negative for any headache, syncope, dizziness Skin: Negative for any rashes, itching, abrasions, lacerations Psychiatric: Negative for any depression, anxiety, stress, suicidal ideation, homicidal ideation Hematologic: Negative for any excessive bruising, easy bleeding EXAM <GRACE Saldaña - Last Filed: 10/07/24 15:59> Physical Exam Narrative Exam Narrative: Vital signs reviewed. HEET: Head normocephalic atraumatic, TMs clear bilaterally. Posterior pharynx is clear, moist mucous membranes. Nares clear bilaterally. Pupils are equal round reactive to light. I was able to use tetracaine to numb the eye, they will use fluorescein strip. There was some haziness however do not see any significant major corneal abrasion. Neck: Supple with no lymphadenopathy or tenderness. No signs of meningismus. Cardiac: Regular rate and rhythm no murmurs gallops or rubs, equal peripheral pulses bilaterally. Respiratory: Lungs clear to auscultation bilaterally. No chest tenderness. Abdomen: Soft, nontender, nondistended. No abdominal bruit or pulsatile masses. No hepatosplenomegaly Extremities: No peripheral edema, no signs of gross trauma or deformity. Active full range of motion of all extremities. Neuro: Cranial nerves II through XII intact, no focal neurological deficits. Skin: Clean dry and intact with no rash, purpura, petechiae, vesicles or pustules. Backs/flank: No CVA tenderness, no midline spinal tenderness, no deformity. Psych: Normal mood and affect. No SI, HI or acute psychosis. Const Vital Signs: 10/07/24 15:07 Temperature 97.2 F L Temperature Source Temporal Pulse Rate 93 Respiratory Rate 17 Blood Pressure 125/81 H Blood Pressure Mean 95 Pulse Ox 96 Oxygen Delivery Method Room Air MDM <GRACE Saldaña - Last Filed: 10/07/24 15:59> [facility] Treatment and Re-Evaluation Narrative: Differential diagnosis includes however is not limited to: Corneal abrasion, chemical conjunctivitis, foreign body Patient appears generally well, vital signs are stable, patient is nontoxic- appearing. Presenting to the emergency department with complaints of left eye pain after having glue in the eye accidentally. The glue was nail glue. Tetracaine immediately took the patient's pain away. Physical examination was completed of the left eye while another times, was able to lift up the upper lid lower lid, there is no foreign body. Fluorescein staining was completed. There was no obvious major corneal abrasion. At this time, patient be treated for more of a chemical conjunctivitis. Patient will not wear her contacts until she is pain-free. She will be placed on bacitracin ointment. All questions answered, stable for discharge. <Dr. Josep Godwin MD - Last Filed: 10/07/24 15:57> [facility] Narrative Medical decision making narrative: I have personally performed a face to face assessment of the patient and have reviewed the [facility] Note. I performed a substantive portion of the visit including all aspects of the following. My keys findings include: History is 49-year-old female wears contacts no prior eye surgery. Today she was putting a nail on her finger when the glue splashed in her left eye. She took the contact out but has had pain since that time. No other complaints. Exam is [49-year-old female vital signs are stable afebrile. H EENT exam pupils round reactive light. Extremities are intact. Upper and lower lids are unremarkable. No swelling. No discharge. Left eye is mildly injected. Tetracaine was applied to left eye immediate relief. Fluorescein no corneal abrasion or foreign body. No corneal ulcer. No preauricular lymphadenopathy. Lungs clear. Heart regular rhythm. Abdomen soft.] Medical Decision Making [patient with a chemical conjunctivitis of her left eye. Tetracaine for pain. Antibiotic ointment. Outpatient follow-up with ophthalmology if not improving.] Other additions or changes: [None] History & Record Review Discussion w/independent historian: Patient Discharge Plan Triage Chief Complaint: Eye Problem ED Midlevel Provider: Hamlet Recio ED Provider: Josep Godwin Dx/Rx/DC Orders Clinical Impression: Acute chemical conjunctivitis Instructions: ED Conjunctivitis, Nonspecific Prescriptions: New bacitracin 500 unit/gram ointment 0.5 inch LEFT EYE Q8H 5 Days Qty: 3.5 0RF No Action sumatriptan succinate [Imitrex] 25 mg tablet 50 mg PO .COMPLEX PRN (Reason: migraine headache) Rx Instructions: 50 mg orally PRN; Mounjaro 10 mg/0.5 mL pen injector 15 mg subcut WE magnesium 200 mg tablet 200 mg PO DAILY collagen 11 g PO DAILY vitamin D3-vitamin K2 250 mcg (10,000 unit)-45 mcg capsule 1 cap PO DAILY JOSIE CHERRY 1 tab PO DAILY CATHERINE 8 oz PO DAILY levofloxacin 750 mg tablet 750 mg PO Q24H Qty: 4 0RF Primary Care Provider: Selena Langston Referrals: Justice Abraham MD [Med Staff - Active Staff] - 3-5 Days if not improving Selena Langston PA-C [Primary Care Provider] - Activity Restrictions/Additional Instructions: Do not rub or patch or iron. No contact until completely pain-free for several days. Motrin Tylenol for pain. Sunglasses prevent glare. Apply the antibiotic ointment twice a day. You can use the tetracaine drops for the next 24 hours you must stop them tomorrow evening. They can retard healing but the best thing for pain. Put the drops in before you use antibiotic ointment or it will just make you run out. Print Language: Citizen Of [place] Disposition Disposition: Home, Self Care
[2024-10-07] MEDS: Tetracaine 0.5% Ophthalmic Bottle 1 DRP RIGHT EYE (15:55)
[2024-10-07] MEDS: Fluorescein 1 MG STRIP 1 STRIP LEFT EYE (15:56)
[2024-10-07 15:58] VITALS: BP 118/78; PULSE 78; RESP 16; TEMP 36.2; O2SAT 96
== END 2024-10-07 16:05 | disposition home or self-care (01) ==
LOC: ED 15:58
PROVIDERS: Emergency Provider Emergency Medicine; PCP Family Medicine; Visit Provider Emergency Medicine
DX: H10.30 Unspecified acute conjunctivitis, unspecified eye (principal); E11.9 Type 2 diabetes mellitus without complications; Z90.710 Acquired absence of both cervix and uterus; I10 Essential (primary) hypertension; E78.00 Pure hypercholesterolemia, unspecified; Z87.891 Personal history of nicotine dependence; I25.2 Old myocardial infarction; Z99.89 Dependence on other enabling machines and devices; Z86.718 Personal history of other venous thrombosis and embolism; Z86.711 Personal history of pulmonary embolism; Z87.442 Personal history of urinary calculi
CPT/HCPCS: 99283

== ENCOUNTER → 2024-11-15 | Outpatient (CLI) | payer BC, SELFPAY ==
[2024-11-15 11:14] LABS: Absolute Lymphocyte Count 1.79 X10^3/uL (0.83-4.51); Absolute Neutrophil Count 5.8 X10^3/uL (2.0-7.7); Basophil# 0.05 X10^3/uL; Basophil% 0.6 % (0-1); Eosinophil# 0.15 X10^3/uL; Eosinophils% 1.8 % (0-5); Hematocrit 39.5 % (37-47); Hemoglobin 13.6 g/dL (12.0-15.0); Lymphocyte # 1.79 X10^3/ul (0.83-4.51); Lymphocyte % 21.3 % (19-41); Mean Corp Hgb Conc 34.4 g/dL (32-36); Mean Corpuscular Volume 87.2 fL (81-99); Mean Platelet Vol. 10.9 fl (6.2-12.0); Monocyte# 0.54 X10^3/uL; Monocyte% 6.4 % (0-10); NRBC Flagged by Analyzer 0 % (0-5); Neutrophil # 5.84 X10^3/uL (2.7-7.7); Neutrophil % 69.3 % (47-70); Platelet Count 227 K/mm3 (150-450); RBC Distribution Width CV 12.1 % (11.6-14.6); RBC Distribution Width SD 38.7 fl (35.1-43.9); Red Blood Count 4.53 M/mm3 (4.2-5.4); White Blood Count 8.4 K/mm3 (4.4-11.0)
[2024-11-15 11:51] LABS: Anion Gap 6 (5-15); BUN 9 mg/dL (7-18); BUN/Creat Ratio 11.1 RATIO (10-20); Calcium,Total 8.7 mg/dL (8.5-10.1); Chloride 107 mmol/L (98-107); Creatinine, Serum 0.81 mg/dL (0.55-1.02); EST Glomerular Filtration Rate 80 mL/min (>60); Est Glom Filt Rate - Afr Amer 97 mL/min (>60); Glucose 95 mg/dL (74-106); Magnesium 2.3 mg/dL (1.6-2.6); Potassium 4.2 mmol/L (3.5-5.1); Sodium Level 138 mmol/L (136-145)
== END | disposition home or self-care (01) ==
LOC: LAB 10:33
PROVIDERS: PCP Family Medicine; Referring Provider Physician Assistant Medical; Visit Provider Physician Assistant Medical
DX: R00.2 Palpitations (principal)
CPT/HCPCS: 36415; 80048; 83735; 84443; 85025

== ENCOUNTER → 2024-11-20 | Outpatient (CLI) | payer BC, SELFPAY | END | disposition home or self-care (01) | LOC: PSN 08:05 | PROVIDERS: PCP Family Medicine; Referring Provider Physician Assistant Medical; Visit Provider Physician Assistant Medical | DX: R00.2 Palpitations (principal); R00.0 Tachycardia, unspecified | CPT/HCPCS: 93225; 93226 ==

== ENCOUNTER → 2024-12-05 | Outpatient (CLI) | payer BC, SELFPAY ==
--- NOTE | 2024-12-05 07:55 | AAVD_ITS ---
Reason For Study Reason For Study: Pulsatile mass in abdomen Aorta Measurements Aorta Doppler Measurements Proximal aorta measures1.51x1.62cm. in cross-sectional axis.Peak systolic flow velocities within the proximal aorta Proximal aorta measures1.77cm. in longitudinal axis. measure 160.5 cm/sec. Mid aorta measures1.62x1.62cm. in cross-sectional axis. Peak systolic flow velocities within the mid aorta measure Mid aorta measures1.66cm. in longitudinal axis. 80.1 cm/sec. Distal aorta measures1.55x1.40cm. in cross-sectional axis. Peak systolic flow velocities within the distal aorta Distal aorta measures1.49cm. in longitudinal axis. measure 93.0 cm/sec. Left Iliac Artery Left iliac artery measures 0.99 cm. in the longitudinal axis. Left iliac artery measures 1.19x1.27 cm. in the cross- sectional axis. Peak systolic velocity in the left iliac artery measures 116.3 cm/sec. Right Iliac Artery Right iliac artery measures 0.80 cm. in the longitudinal axis. Right iliac artery measures 1.06x1.15 cm. in the cross- sectional axis. Peak systolic velocity in the right iliac artery measures 98.2 cm/sec. Procedure Aorta IVC Iliac vasculature or bypass grafts [id number]. Exam performed in department. VL/Abd Aortic/IVC Duplex scan Interpretation Summary Aorta patent, normal caliber Right iliac artery patent, normal caliber Left iliac artery patent, ectasia to1.27 cm Ordering Physician: Tania Hendricks Referring Physician: Selena Langston PA Performed By: Milagro Jorge RVT and Student
== END | disposition home or self-care (01) ==
LOC: CVS 07:55
PROVIDERS: PCP Family Medicine; Referring Provider Physician Assistant Medical; Visit Provider Physician Assistant Medical
DX: R19.00 Intra-abdominal and pelvic swelling, mass and lump, unspecified site (principal); Z82.49 Family history of ischemic heart disease and other diseases of the circulatory system
CPT/HCPCS: 93978

== ENCOUNTER 2025-03-19 09:58 | Outpatient (RCR) | payer BC, SELFPAY | END 2025-04-16 23:59 | LOC: NS 09:58 | PROVIDERS: PCP Family Medicine; Referring Provider Family Medicine; Visit Provider Family Medicine | DX: Z71.3 Dietary counseling and surveillance (principal); E11.65 Type 2 diabetes mellitus with hyperglycemia | CPT/HCPCS: 97802 ==

== ENCOUNTER → 2025-04-05 | Outpatient (CLI) | payer BC, SELFPAY | END | disposition home or self-care (01) | LOC: LABSPEC 16:31 | PROVIDERS: PCP Family Medicine; Referring Provider Nurse Practitioner Family; Visit Provider Nurse Practitioner Family | DX: N89.8 Other specified noninflammatory disorders of vagina (principal) | CPT/HCPCS: 87070; 87205 ==

== ENCOUNTER 2025-04-12 19:43 | Emergency (ER) | payer BC, SELFPAY ==
[2025-04-12 19:43] VITALS: BP 116/80; PULSE 84; RESP 16; TEMP 36.2; O2SAT 98; BMI 40.3
--- NOTE | 2025-04-12 20:41 | CT_ITS ---
PROCEDURE: ABDOMEN/PELVIS W IV CONT ONLY 04/12/2025 REASON FOR EXAM: RIGHT LOWER QUADRANT PAIN TECHNIQUE: ABDOMEN/PELVIS W IV CONT ONLY Coronal and Sagittal reconstruction series were provided. CONTR Isovue 300 AST: 95 VOLUME: mL One or more dose reduction techniques were used (e.g., Automated exposure control, adjustment of the mA and/or kV according to patient size, use of iterative reconstruction technique. RADIATION DOSE SUMMARY: CTDlvol: 40 mGy DLP: 1353 mGycm COMPARISON: 08/15/2022 FINDINGS: Basilar scar/atelectasis. Normal heart size. Status post cholecystectomy. Upper abdominal solid organs show no acute findings. Small left renal cyst. No hydronephrosis or ureteral stone. Normal bladder. Status post hysterectomy. No retroperitoneal or pelvic adenopathy. No free air. Nondistended bowel. Normal appendix. Diverticulosis. No acute large bowel findings. Lumbar spine scoliosis and degeneration. CT/Abdomen/Pelvis W IV Cont ONLY IMPRESSION: Normal appendix. No acute findings Reading Location: [place] [id number]
--- NOTE | 2025-04-12 20:41 | ED.VIS.GI ---
HPI HPI - GI History of Present Illness Chief Complaint: Abd Pain Narrative Narrative: 49-year-old female past medical history of factor V Leiden disorder, remote pulmonary embolism and [place] in 2007 after having a baby, presents with right lower quadrant abdominal pain that she has had all day today. She relates history that she had periumbilical pain and burning sometime last week. It went away and she states that she moved down with daily activities. Today, she has more of a right lower quadrant burning pain that is worse with sneezing and movement. She denies any fevers or chills, no nausea or vomiting, no dysuria or hematuria, no problems with bowel movements although she thinks she is constipated because she is on a high-protein diet. She did have a normal bowel movement yesterday. Past abdominal surgery does include partial hysterectomy. Initially she had both of her ovaries but she had a left ovarian cyst which caused her to have oophorectomy on the left. She still has a right ovary. She presents with her mother with concern for appendicitis. [facility] Medical History Otitis media, left CPAP (continuous positive airway pressure) dependence Asthma History of stress test PONV (postoperative nausea and vomiting) High cholesterol History of heart attack (~2007) Hx of colonic polyp Other acute myringitis, left ear Pelvic pressure in female Wears contact lenses Anxiety Alcohol use Blood disorder Back pain Migraine headache History of ulceration History of edema Hypertension History of echocardiogram Cardiology follow-up encounter Genetic testing of female Vitamin D deficiency Former smoker History of kidney stones Migraines Non-STEMI (non-ST elevated myocardial infarction) (07/2008) Myopericarditis Essential (primary) hypertension History of deep venous thrombosis cardiomyopathy Pulmonary embolus (07/2008) Obesity GERD (gastroesophageal reflux disease) Nephrolithiasis Home Medications ?Medication ?Instructions ?Recorded ?Last Taken ?Type tirzepatide 10 mg/0.5 mL 15 mg subcut FR 12/30/23 04/12/24 History subcutaneous pen injector (Joey) vitamin D3 250 mcg (10,000 1 cap PO DAILY 03/08/24 Unknown History unit)-vitamin K2 45 mcg capsule Allergy/AdvReac Type Severity Reaction Status Date / Time nickel (justice) Allergy Rash Verified 04/12/25 19:44 Penicillins Allergy Rash Verified 04/12/25 19:44 Family History Mother Diabetes Hypertension Cancer Uterine cancer Pancreatitis Colon polyps Father Diabetes Heart disease Hypertension CVA (cerebral vascular accident) Daughter Hearing loss Grandmother CVA (cerebral vascular accident) Colon cancer Uncle Colon cancer Uncle Colon cancer Other Gout Surgical History Status post excisional biopsy Hx of lithotripsy History of esophagogastroduodenoscopy (EGD) Hx of colonoscopy Status post left oophorectomy History of shoulder surgery Hx of tympanostomy tubes History of left heart catheterization (07/2008) Hx of cholecystectomy H/O: hysterectomy Social History household members: children Smoking Status: Former smoker quit date: 10/18/12 Tobacco: How many years used: 20 second hand exposure: No alcohol intake: current alcohol intake frequency: 0-2 drinks per day details: social substance use type: does not use caffeine: Yes what type of physical activity do you participate in: none seatbelt use: always do you feel safe at home: Yes additional social history: Patient works at the [employer] ED ROS Narrative Review of systems positive for right lower quadrant abdominal pain, described more as burning. Worse with sneezing and movement/walking. No dysuria or hematuria. No fevers or chills. Describes constipation but had normal bowel movement yesterday. No chest pain or shortness of breath. EXAM Physical Exam Narrative Exam Narrative: Afebrile. Vital signs noted. Nontoxic-appearing. Cardiovascular examination reveals a regular rate and rhythm. Lungs are clear to auscultation bilaterally. The abdomen is soft with mild tenderness to palpation in the right lower quadrant over McBurney's point, negative Rovsing sign. No other peritoneal signs. Positive bowel sounds. No guarding or rebound. Neurological examination nonfocal, nonlateralizing. Const Vital Signs: 04/12/25 19:43 04/12/25 21:43 Temperature 97.1 F L Temperature Source Temporal Pulse Rate 84 90 Respiratory Rate 16 18 Blood Pressure 116/80 112/65 Blood Pressure Mean 92 80 Pulse Ox 98 98 Oxygen Delivery Method Room Air Room Air MDM MDM MDM Narrative Medical decision making narrative: The differential diagnosis includes but not limited to acute appendicitis versus diverticulitis versus ovarian cyst/cyst rupture versus abdominal wall pain. Patient was administered morphine and ondansetron and a bolus of IV fluids. Comprehensive workup was pursued including CBC, CMP, UA, and CT imaging of the abdomen with IV contrast. I reviewed her laboratory work and she has normal white count of 10.2 with hemoglobin normal at 13.6, hematocrit 40.4. Sodium is normal at 136 with potassium 5.0, CO2 slightly low at 20.3 which I think is nonspecific, normal BUN and creatinine. Glucose 75. AST slightly elevated at 40 with normal ALT and normal alk phos. Urinalysis obtained and is negative for infection. I do not feel antibiotics are indicated. I reviewed the radiology report of the CT of the abdomen and pelvis with IV contrast and there is no acute process. Appendix visualized and is normal. At this point in time, after morphine, she was still having pain and burning sensation. She was given Toradol 30 mg intravenously. At this point in time, I do not feel she requires hospitalization. I feel she can be discharged with follow-up to her primary care provider. Return instructions to the emergency department were reviewed. Disposition is discharged home in stable condition. History & Record Review Discussion w/independent historian: Patient Additional record(s) reviewed:: Prior ED visit Lab Data Attestation: I reviewed the patient's lab results. Labs: Laboratory Results - last 24 hr 04/12/25 21:02 WBC 10.2 RBC 4.40 Hgb 13.6 Hct 40.4 MCV 91.8 MCH 30.9 MCHC 33.7 RDW Std Deviation 40.9 RDW Coeff of Paz 12.3 Immature Gran % (Auto) 0.300 Neut % (Auto) 62.5 Lymph % (Auto) 27.6 Edmunds % (Auto) 7.2 Eos % (Auto) 1.7 Baso % (Auto) 0.7 Absolute Neuts (auto) 6.4 Absolute Lymphs (auto) 2.82 Nucleated RBC % 0 Sodium 136 Potassium 5.0 Chloride 104 Carbon Dioxide 20.3 L Anion Gap 12 BUN 11 Creatinine 0.85 Estim Creat Clear Calc 93.93 Est GFR (MDRD) Non-Af 85 BUN/Creatinine Ratio 12.6 Glucose 75 Calcium 9.1 Total Bilirubin 0.30 AST 40 H ALT 18 Alkaline Phosphatase 48 Total Protein 6.6 Albumin 3.7 Globulin 2.9 Albumin/Globulin Ratio 1.3 Urine Color Yellow Urine Clarity Sl. Cloudy Urine pH 7.0 Ur Specific [place] 1.015 Urine Protein Negative Urine Glucose (UA) Normal Urine Ketones Negative Urine Occult Blood Negative Urine Nitrite Negative Urine Bilirubin Negative Urine Urobilinogen Normal Ur Leukocyte Esterase Negative Urine RBC 0 SEEN Urine WBC 0 SEEN Ur Squamous Epith Cells 0-5 SEEN Amorphous Sediment 3+ Urine Bacteria 0 SEEN Urine Mucus 0 SEEN Radiography Diagnostic Testing: Clinical Impression(s) from Imaging Studies Abdomen/Pelvis CT 04/12/25 20:41 IMPRESSION: Normal appendix. No acute findings Reading Location: [place] [id number] Discharge Plan Triage Chief Complaint: Abd Pain ED Provider: Bolivar Zaidi Dx/Rx/DC Orders Clinical Impression: Abdominal pain, right lower quadrant, Burning sensation Instructions: ED Abdominal Pain Unkn Cause Fem Prescriptions: No Action Mounjaro 10 mg/0.5 mL pen injector 15 mg subcut FR vitamin D3-vitamin K2 250 mcg (10,000 unit)-45 mcg capsule 1 cap PO DAILY Primary Care Provider: Selena Langston Referrals: Selena Langston PA-C [Primary Care Provider] - 3-5 Days if not improving Activity Restrictions/Additional Instructions: The CT of your abdomen and pelvis showed a normal appendix today. Return to the emergency department with increased pain, fever, nausea, vomiting, new or worsening symptoms. Follow-up with your primary care provider in the next 3-5 days otherwise. Print Language: Yoruba Disposition Disposition: Home, Self Care
[2025-04-12] MEDS: Ondansetron 4 MG/2 ML Vial IV (20:59)
[2025-04-12] MEDS: Morphine 4 MG/ML Syringe IV (20:59)
[2025-04-12] MEDS: 0.9% Normal Saline (1000mL) 1,000 ML 999 ML IV (21:00)
[2025-04-12 21:08] LABS: Bacteria 0 SEEN /hpf (None Seen); Mucous, Urine 0 SEEN /hpf (<or=2+); Red Blood Cells-Urine 0 SEEN /hpf (0-5); White Blood Cells 0 SEEN /hpf (0-5)
[2025-04-12 21:11] LABS: Absolute Lymphocyte Count 2.82 X10^3/uL (0.83-4.51); Absolute Neutrophil Count 6.4 X10^3/uL (2.0-7.7); Basophil# 0.07 X10^3/uL; Basophil% 0.7 % (0-1); Eosinophil# 0.17 X10^3/uL; Eosinophils% 1.7 % (0-5); Hematocrit 40.4 % (37-47); Hemoglobin 13.6 g/dL (12.0-15.0); Lymphocyte # 2.82 X10^3/ul (0.83-4.51); Lymphocyte % 27.6 % (19-41); Mean Corp Hgb Conc 33.7 g/dL (32-36); Mean Corpuscular Hgb 30.9 pg (27.0-32.0); Mean Corpuscular Volume 91.8 fL (81-99); Monocyte# 0.74 X10^3/uL; Monocyte% 7.2 % (0-10); NRBC Flagged by Analyzer 0 % (0-5); Neutrophil # 6.38 X10^3/uL (2.7-7.7); Neutrophil % 62.5 % (47-70); POSITIVE COUNT YES; RBC Distribution Width CV 12.3 % (11.6-14.6); RBC Distribution Width SD 40.9 fl (35.1-43.9); White Blood Count 10.2 K/mm3 (4.4-11.0)
[2025-04-12 21:36] LABS: Color, Urine Yellow (Yellow); Glucose, Dipstick Normal (Normal); Ketone-Dipstick Negative (Negative); Leukocyte Esterase-Dipstick Negative /ul (Negative); Nitrite-Dipstick Negative (Negative); Occult Blood-Urine Negative /ul (Negative); Protein-Dipstick Negative (Negative); Specific Gravity, Urine 1.015 (1.002-1.030); Urine Bilirubin Dipstick Negative (Negative); Urine Clarity Sl. Cloudy (Clear); Urine Urobilinogen Normal (Normal)
[2025-04-12 21:43] VITALS: BP 112/65; PULSE 90; RESP 18; O2SAT 98
[2025-04-12 21:50] LABS: ALB/GLOB Ratio 1.3 RATIO (0.9-2.4); AST(SGOT) 40 U/L (<=31); Alanine Aminotransfer ALT/SGPT 18 U/L (<=34); Albumin, Serum 3.7 g/dL (3.5-5.0); Alkaline Phosphatase 48 U/L (35-104); Anion Gap 12 (5-15); BUN 11 mg/dL (4-19); BUN/Creat Ratio 12.6 RATIO (10-20); Calcium,Total 9.1 mg/dL (7.6-11.0); Carbon Dioxide 20.3 mmol/L (21.0-32.0); Chloride 104 mmol/L (98-108); Creatinine, Serum 0.85 mg/dL (0.70-1.20); EST Glomerular Filtration Rate 85 (>60); Estimated Creatinine Clearance 93.93 ml/min (50-250); Globulin 2.9 g/dL (2.2-4.2); Glucose 75 mg/dL (70-99); Protein, Total 6.6 g/dL (5.9-8.4); Sodium Level 136 mmol/L (133-145)
[2025-04-12 22:01] LABS: Differential Indicated SCAN CRITERIA MET
[2025-04-12 22:27] LABS: Amorphous Sediment 3+; Squamous Epithelial Cells - UA 0-5 SEEN /hpf (5-10)
[2025-04-12 22:42] LABS: Differential Comment SCANNED; Platelet Estimate ADEQUATE (ADEQ)
[2025-04-12] MEDS: Ketorolac 30 MG/ML Syringe IV (22:44)
[2025-04-12 22:47] VITALS: BP 121/78; PULSE 68; RESP 16; TEMP 36.7; O2SAT 99
== END 2025-04-12 22:49 | disposition home or self-care (01) ==
PROVIDERS: Emergency Provider Emergency Medicine; PCP Family Medicine; Referring Provider Emergency Medicine; Visit Provider Emergency Medicine
DX: R10.31 Right lower quadrant pain (principal); I10 Essential (primary) hypertension; N83.202 Unspecified ovarian cyst, left side; E78.00 Pure hypercholesterolemia, unspecified; Z90.710 Acquired absence of both cervix and uterus; Z90.722 Acquired absence of ovaries, bilateral; Z87.891 Personal history of nicotine dependence; R20.8 Other disturbances of skin sensation; Z90.49 Acquired absence of other specified parts of digestive tract; Z90.721 Acquired absence of ovaries, unilateral; I25.2 Old myocardial infarction; Z99.89 Dependence on other enabling machines and devices; Z86.711 Personal history of pulmonary embolism; Z86.718 Personal history of other venous thrombosis and embolism
CPT/HCPCS: 74177; 80053; 81001; 85025; 96361; 96374; 96375; 99283; Q9967; A4216; J2405

== ENCOUNTER → 2025-04-12 | Outpatient (CLI) | payer BC, SELFPAY ==
--- NOTE | 2025-04-12 11:00 | BI_ITS ---
EXAM: SCRN MAMM (CAD)W/RAMIRO BILAT DATE: 04/12/2025 CLINICAL HISTORY: F, Age 49 y/o , SCREEN FOR BREAST CANCER Aunt with history of breast cancer. History of prior excision of left axillary lymph nodes. TECHNIQUE: SCRN MAMM (CAD)W/RAMIRO BILAT COMPARISON: Prior exam(s) dated November 24, 2023.. FINDINGS: TISSUE DENSITY: The breasts are heterogeneously dense, which may obscure small masses. Bilateral Breast Mammographic Findings: No significant masses, calcifications or other abnormalities are identified. Surgical clips are seen in the left axillary region. BI/SCRN MAMM (CAD)W/RAMIRO BILAT IMPRESSION: Stable examination. OVERALL FINAL ASSESSMENT BI-RADS 2: BENIGN RECOMMEND ANNUAL MAMMOGRAPHIC SCREENING. RECOMMENDATION: Routine annual follow-up in 1 Year A letter with findings and recommendations will be mailed to the patient. Reading Location: [id number]
== END | disposition home or self-care (01) ==
LOC: OPBI 10:48
PROVIDERS: PCP Family Medicine; Referring Provider Nurse Practitioner Family; Visit Provider Nurse Practitioner Family
DX: Z12.31 Encounter for screening mammogram for malignant neoplasm of breast (principal); Z80.3 Family history of malignant neoplasm of breast
CPT/HCPCS: 77063; 77067

== ENCOUNTER → 2025-07-19 | Outpatient (CLI) | payer BC, SELFPAY ==
[2025-07-19 12:44] LABS: AST(SGOT) 20 U/L (<=31); Alanine Aminotransfer ALT/SGPT 19 U/L (<=34); Albumin, Serum 3.8 g/dL (3.5-5.0); Alkaline Phosphatase 55 U/L (35-104); Anion Gap 10 (5-15); BUN 10 mg/dL (4-19); BUN/Creat Ratio 13.1 RATIO (10-20); Calcium,Total 8.8 mg/dL (7.6-11.0); Carbon Dioxide 23.0 mmol/L (21.0-32.0); Chloride 104 mmol/L (98-108); Cholesterol 214 mg/dL (<=200); Globulin 2.7 g/dL (2.2-4.2); Glucose 131 mg/dL (70-99); Low Density Lipoprotein Calc. 125 mg/dL; Potassium 4.3 mmol/L (3.3-5.1); Triglycerides 220 mg/dL; Very Low Density Lipoprotein 44 mg/dL (5-40); cholesterol:hdl ratio screen 4.75
== END | disposition home or self-care (01) ==
LOC: LAB 11:43
PROVIDERS: PCP Family Medicine; Referring Provider Family Medicine; Visit Provider Family Medicine
DX: E78.2 Mixed hyperlipidemia (principal); E11.65 Type 2 diabetes mellitus with hyperglycemia
CPT/HCPCS: 36415; 80053; 80061; 83036